=== PATIENT | female | born 1950 | race American Indian/Alaskan Native ===

== ENCOUNTER 2019-05-29 14:13 | Emergency (ER) | payer BC ==
[2019-05-29] MEDS ORDERED: Succinylcholine 200 MG/10 ML MDV IV ONE (14:14)
[2019-05-29] MEDS ORDERED: Etomidate 2 MG/ML 20 ML SDV IVPUSH ONE (14:14)
[2019-05-29] MEDS ORDERED: Rocuronium 100 MG/10 ML MDV IV ONE (14:14)
[2019-05-29] MEDS ORDERED: Insulin Regular, Human 100 Units/ML 3 ML Vial IV ONE ×2 (14:25→16:07)
[2019-05-29 14:51] VITALS: BP 121/57; PULSE 104
[2019-05-29 15:19] LABS: BASE EXCESS ARTERIAL -29 mmol/L ((-2)-(+3)); BICARBONATE,ARTERIAL 3.1 mmol/L (22-26); O2 DELIVERY DEVICE ROOM AIR; O2 SATURATION ARTERIAL 80 % (95-100); PCO2 ARTERIAL 20 mmHg (35-45); PO2 ARTERIAL 64 mmHg (70-100)
[2019-05-29 15:24] LABS: O2 FLOW RATE 5
[2019-05-29 15:25] LABS: ALLEN TEST RB
[2019-05-29] MEDS ORDERED: Sodium Bicarbonate 8.4% 50 MEQ/50 ML Syringe IVPUSH ONE (15:28)
[2019-05-29] MEDS ORDERED: Furosemide 40 MG/4 ML VIAL IVPUSH ONE (15:28)
[2019-05-29] MEDS ORDERED: Magnesium Sulfate/Water 2 GM in Premix Bag 1 BAG IV ONE (15:47)
[2019-05-29 15:53] LABS: CHLORIDE,CL 103 mmol/L (101-111); SODIUM,NA 134 mmol/L (135-145)
[2019-05-29 15:54] LABS: ANION GAP 31.40001
--- NOTE | 2019-05-29 15:57 | EDM.PDOC ---
ED HPI GENERAL MEDICAL PROBLEM - General Chief Complaint: Respiratory Problem Stated Complaint: UNKNOWN Time Seen by Provider: 05/29/19 14:15 Source of Information: Reports: Patient, Family History Limitations: Reports: No Limitations - History of Present Illness INITIAL COMMENTS - FREE TEXT/NARRATIVE: ED via [facility] with c/o difficulty breathing since am Discharged from [facility] yesterday, daughter wondering if not getting water pill as noted a lot of puffiness today. Incontinent urine enroute. Lung sounds improved with neb per EMS. - Related Data Allergies Allergy/AdvReac Type Severity Reaction Status Date / Time No Known Allergies Allergy Verified 05/25/15 09:21 Home Meds: Home Meds Aspirin [Colonia Aspirin] 2 oz PO DAILY 05/25/15 [History] Furosemide 1 tab PO DAILY 05/25/15 [History] Insulin Aspart [Novolog Flexpen] 15 units SQ TID 05/25/15 [History] Insulin Detemir [Levemir Flextouch] 40 units SQ BID 05/25/15 [History] Lisinopril 1 tab PO DAILY 05/25/15 [History] Metoprolol Succinate [Toprol XL] 1 tab PO DAILY 05/25/15 [History] Zolpidem [Ambien] 1 tab PO DAILY PRN 05/25/15 [History] traMADol HCl [Tramadol HCl] 2 tab PO Q6H PRN 05/25/15 [History] Past Medical History Cardiovascular History: Reports: Heart Failure, Hypertension, MD Neurological History: Reports: Migraines Endocrine/Metabolic History: Reports: Diabetes, Type II - Infectious Disease History Infectious Disease History: Reports: Hepatitis B, MRSA, Shingles - Past Surgical History Cardiovascular Surgical History: Reports: Coronary Artery Bypass GI Surgical History: Reports: Cholecystectomy, Hernia, Inguinal Social & Family History - Family History Family Medical History: Noncontributory ED ROS GENERAL - Review of Systems Review Of Systems: Comprehensive ROS is negative, except as noted in HPI. ED EXAM, GENERAL - Physical Exam Exam: See Below Exam Limited By: No Limitations General Appearance: Lethargic, Other (drowsy and ketone odor) Eye Exam: Bilateral Eye: EOMI, Normal Inspection, PERRL Ears: Normal External Exam, Normal Canal, Hearing Grossly Normal, Normal TMs Nose: Normal Inspection, Normal Mucosa, No Blood Throat/Mouth: Normal Inspection, Normal Lips, Normal Teeth, Normal Gums, Normal Oropharynx, Normal Voice, No Airway Compromise Head: Atraumatic, Normocephalic Neck: Normal Inspection, Supple, Non-Tender, Full Range of Motion Respiratory/Chest: Decreased Breath Sounds, Other (course on right side) Cardiovascular: Regular Rate, Rhythm GI/Abdominal: Normal Bowel Sounds, Soft (Female) Exam: Deferred Rectal (Female) Exam: Deferred Back Exam: Normal Inspection Extremities: Normal Inspection Neurological: Other (drowsy) Psychiatric: Normal Affect Skin Exam: Other (pale) Lymphatic: No Adenopathy Course - Vital Signs Last Recorded V/S: Last Vital Signs Temp 97.3 F 05/29/19 14:13 Pulse 104 H 05/29/19 14:13 Resp 24 H 05/29/19 14:13 BP 121/57 L 05/29/19 14:13 Pulse Ox 100 05/29/19 14:13 - Orders/Labs/Meds Orders: Active Orders 24 hr Category Date Time Status EKG 12 Lead [EKG Documentation Completion] [RC] STAT Care 05/29/19 14:15 Active Glucose [Blood Glucose Check, Bedside] [RC] ONETIME Care 05/29/19 14:17 Active CXR [Chest 1V Frontal] [CR] Urgent Exams 05/29/19 15:54 Taken CBC WITH AUTO DIFF [HEME] Stat Lab 05/29/19 15:07 Results CKMB [CHEM] Stat Lab 05/29/19 15:07 Received CULTURE BLOOD [BC] Stat Lab 05/29/19 14:26 Ordered CULTURE BLOOD [BC] Stat Lab 05/29/19 15:07 Received INFLUENZA A+B AG SCREEN [RM] Stat Lab 05/29/19 14:16 Ordered MANUAL DIFFERENTIAL QA/NC [HEME] Stat Lab 05/29/19 15:07 Results UA RFX MIKEY AND CULT IF INDIC [URIN] Stat Lab 05/29/19 14:15 Ordered Insulin Regular, Human [HumuLIN R] 100 unit Med 05/29/19 14:30 Active Sodium Chloride 0.9% [Normal Saline] 99 ml IV TITRATE Magnesium Sulfate/Water [Magnesium Sulfate in Water Med 05/29/19 15:47 Active Premix] 2 gm Premix Bag 1 bag IV ONETIME Blood Culture x2 Reflex Set [OM.PC] Stat Oth 05/29/19 14:25 Ordered Medication Orders Insulin Human Regular 100 unit (/ Sodium Chloride) 100 mls @ 8.83 mls/hr IV TITRATE ERIN; Protocol Last Admin: 05/29/19 15:24 Dose: 0.1 units/kg/hr, 8.83 mls/hr Magnesium Sulfate 2 gm/ Premix 50 mls @ 25 mls/hr IV ONETIME ONE Stop: 05/29/19 17:46 Labs: Laboratory Tests 05/29/19 05/29/19 05/29/19 Range/Units 15:07 15:07 15:07 WBC 15.6 H (5.0-10.0) 10^3/uL RBC 3.33 L (4.2-5.4) 10^6/uL Hgb 9.5 L D (12.0-16.0) g/dL Hct 32.9 L (37.0-47.0) % MCV 98.8 D (80-100) fL MCH 28.5 (27.0-34.0) pg MCHC 28.9 L (33.0-35.0) g/dL Plt Count 387 D (150-450) 10^3/uL Neut % (Auto) 80.7 H (42.2-75.2) % Lymph % (Auto) 8.2 L (20.5-50.1) % [place] % (Auto) 11.0 H (2-8) % Eos % (Auto) 0.0 L (1.0-3.0) % Baso % (Auto) 0.1 (0.0-1.0) % Add Manual Diff Yes PT 8.9 L (9.0-12.0) SEC INR 0.9 (0.9-1.2) ABG pH (7.35-7.45) ABG pCO2 (35-45) mmHg ABG pO2 (70-100) mmHg ABG HCO3 (22-26) mmol/L ABG O2 Saturation (95-100) % ABG Base Excess ((-2)-(+3)) mmol/L Vignesh Test O2 Delivery Device Oxygen Flow Rate Sodium 134 L (135-145) mmol/L Potassium 5.4 H (3.6-5.0) mmol/L Chloride 103 (101-111) mmol/L Carbon Dioxide < 5.0 L* D (21.0-31.0) mmol/L Anion Gap 31.11553 BUN 19 H (7-18) mg/dL Creatinine 1.5 H (0.6-1.3) mg/dL Est Cr Clr Drug Dosing 34.91 mL/min Estimated GFR (MDRD) 35 BUN/Creatinine Ratio 12.66 Glucose 712 H* (74-105) mg/dL Lactic Acid (0.5-2.0) mmol/L Calcium 8.6 (8.4-10.2) mg/dl Magnesium (1.8-2.5) mg/dL Total Bilirubin 2.1 H (0.2-1.0) mg/dL AST 20 (10-42) IU/L ALT 15 (10-60) IU/L Alkaline Phosphatase 91 (42-121) IU/L Troponin I 0.07 (0.00-0.08) ng/mL B-Natriuretic Peptide 1680 H (0-100) pg/ml Total Protein 6.5 L (6.7-8.2) g/dl Albumin 3.1 L (3.2-5.5) g/dl Globulin 3.4 Albumin/Globulin Ratio 0.91 Ketones 05/29/19 05/29/19 05/29/19 Range/Units 15:07 15:07 15:20 WBC (5.0-10.0) 10^3/uL RBC (4.2-5.4) 10^6/uL Hgb (12.0-16.0) g/dL Hct (37.0-47.0) % MCV (80-100) fL MCH (27.0-34.0) pg MCHC (33.0-35.0) g/dL Plt Count (150-450) 10^3/uL Neut % (Auto) (42.2-75.2) % Lymph % (Auto) (20.5-50.1) % [place] % (Auto) (2-8) % Eos % (Auto) (1.0-3.0) % Baso % (Auto) (0.0-1.0) % Add Manual Diff PT (9.0-12.0) SEC INR (0.9-1.2) ABG pH 6.83 L* (7.35-7.45) ABG pCO2 20 L (35-45) mmHg ABG pO2 64 L (70-100) mmHg ABG HCO3 3.1 L (22-26) mmol/L ABG O2 Saturation 80 L (95-100) % ABG Base Excess -29 L ((-2)-(+3)) mmol/L Vignesh Test Rb O2 Delivery Device Room air Oxygen Flow Rate 5 Sodium (135-145) mmol/L Potassium (3.6-5.0) mmol/L Chloride (101-111) mmol/L Carbon Dioxide (21.0-31.0) mmol/L Anion Gap BUN (7-18) mg/dL Creatinine (0.6-1.3) mg/dL Est Cr Clr Drug Dosing mL/min Estimated GFR (MDRD) BUN/Creatinine Ratio Glucose (74-105) mg/dL Lactic Acid 2.0 (0.5-2.0) mmol/L Calcium (8.4-10.2) mg/dl Magnesium 2.6 H (1.8-2.5) mg/dL Total Bilirubin (0.2-1.0) mg/dL AST (10-42) IU/L ALT (10-60) IU/L Alkaline Phosphatase (42-121) IU/L Troponin I (0.00-0.08) ng/mL B-Natriuretic Peptide (0-100) pg/ml Total Protein (6.7-8.2) g/dl Albumin (3.2-5.5) g/dl Globulin Albumin/Globulin Ratio Ketones Positive Meds: Medications Generic Name Dose Route Start Last Admin Trade Name Samq PRN Reason Stop Dose Admin Insulin Human Regular 100 unit 100 mls @ 8.83 mls/hr 05/29/19 14:30 05/29/19 15:24 / Sodium Chloride IV 0.1 units/kg/hr TITRATE ERIN 8.83 mls/hr Administration Protocol 0.1 UNITS/KG/HR Magnesium Sulfate 2 gm/ Premix 50 mls @ 25 mls/hr 05/29/19 15:47 IV 05/29/19 17:46 ONETIME ONE Discontinued Medications Generic Name Dose Route Start Last Admin Trade Name Samq PRN Reason Stop Dose Admin Furosemide 40 mg 05/29/19 15:28 05/29/19 15:55 Lasix IVPUSH 05/29/19 15:29 40 mg NOW ONE Administration Magnesium Sulfate/Dextrose Confirm 05/29/19 16:18 Magnesium Sulfate In D5w 100 Premix Administered 05/29/19 16:19 Dose 2 gm in 200 mls @ as directed .ROUTE .STK-MED ONE Insulin Human Regular 10 unit 05/29/19 14:25 05/29/19 15:23 Humulin R IV 05/29/19 14:26 10 units ONETIME ONE Administration Sodium Bicarbonate 50 meq 05/29/19 15:28 05/29/19 15:39 Sodium Bicarbonate 8.4% IVPUSH 05/29/19 15:29 50 meq ONETIME ONE Administration - Re-Assessments/Exams Free Text/Narrative Re-Assessment/Exam: 05/29/19 16:36 increased effort, tiring. VSS stable, no ectopy. Anesthesia here, Patient intubated. Dr Chanelle Fragoso accepting patient, CHF, DKA. [facility] roto team here. Patient to be transported via [facility] due to weather. Family aware patient status, Patient is full code. Departure - Departure Time of Disposition: 16:39 Disposition: Home, Self-Care 01 Condition: Undetermined Clinical Impression: Hypoxemia, Metabolic acidosis due to diabetes mellitus, Hypomagnesemia, Hyperkalemia Congestive heart failure Qualifiers: Heart failure type: unspecified Heart failure chronicity: acute on chronic Qualified Code(s): I50.9 - Heart failure, unspecified DKA (diabetic ketoacidosis) Qualifiers: Diabetes mellitus type: type 2 Diabetes mellitus complication detail: without coma Qualified Code(s): E11.10 - Type 2 diabetes mellitus with ketoacidosis without coma - Discharge Information Forms: ED Department Discharge Sepsis Event Note - Evaluation Sepsis Screening Result: Possible Sepsis Risk - Focused Exam Vital Signs: Vital Signs Temp Pulse Resp BP Pulse Ox 05/29/19 14:13 97.3 F 104 H 24 H 121/57 L 100 Date Exam was Performed: 05/29/19 Time Exam was Performed: 16:36 - My Orders Last 24 Hours: My Active Orders 05/29/19 14:15 EKG 12 Lead [EKG Documentation Completion] [RC] STAT UA RFX MIKEY AND CULT IF INDIC [URIN] Stat 05/29/19 14:16 INFLUENZA A+B AG SCREEN [RM] Stat 05/29/19 14:17 Glucose [Blood Glucose Check, Bedside] [RC] ONETIME 05/29/19 14:25 Blood Culture x2 Reflex Set [OM.PC] Stat 05/29/19 14:26 CULTURE BLOOD [BC] Stat 05/29/19 14:30 Insulin Regular, Human [HumuLIN R] 100 unit Sodium Chloride 0.9% [Normal Saline] 99 ml IV TITRATE 05/29/19 15:07 CBC WITH AUTO DIFF [HEME] Stat CKMB [CHEM] Stat CULTURE BLOOD [BC] Stat MANUAL DIFFERENTIAL QA/NC [HEME] Stat 05/29/19 15:47 Magnesium Sulfate/Water [Magnesium Sulfate in Water Premix] 2 gm Premix Bag 1 bag IV ONETIME 05/29/19 15:54 CXR [Chest 1V Frontal] [CR] Urgent - Assessment/Plan Last 24 Hours: My Active Orders 05/29/19 14:15 EKG 12 Lead [EKG Documentation Completion] [RC] STAT UA RFX MIKEY AND CULT IF INDIC [URIN] Stat 05/29/19 14:16 INFLUENZA A+B AG SCREEN [RM] Stat 05/29/19 14:17 Glucose [Blood Glucose Check, Bedside] [RC] ONETIME 05/29/19 14:25 Blood Culture x2 Reflex Set [OM.PC] Stat 05/29/19 14:26 CULTURE BLOOD [BC] Stat 05/29/19 14:30 Insulin Regular, Human [HumuLIN R] 100 unit Sodium Chloride 0.9% [Normal Saline] 99 ml IV TITRATE 05/29/19 15:07 CBC WITH AUTO DIFF [HEME] Stat CKMB [CHEM] Stat CULTURE BLOOD [BC] Stat MANUAL DIFFERENTIAL QA/NC [HEME] Stat 05/29/19 15:47 Magnesium Sulfate/Water [Magnesium Sulfate in Water Premix] 2 gm Premix Bag 1 bag IV ONETIME 05/29/19 15:54 CXR [Chest 1V Frontal] [CR] Urgent
[2019-05-29] MEDS ORDERED: Magnesium Sulfate/D5W 2 GM/200 ML BAG ONE (16:18)
== END 2019-05-29 17:08 | disposition home or self-care (01) ==
LOC: DL.ED 14:13
DX: E11.10 Type 2 diabetes mellitus with ketoacidosis without coma (principal); R09.02 Hypoxemia; E83.42 Hypomagnesemia; E87.5 Hyperkalemia; E87.2 Acidosis; I11.0 Hypertensive heart disease with heart failure; I50.9 Heart failure, unspecified; I25.2 Old myocardial infarction; Z79.82 Long term (current) use of aspirin; Z79.4 Long term (current) use of insulin; Z79.899 Other long term (current) drug therapy; Z95.1 Presence of aortocoronary bypass graft
CPT/HCPCS: 31500; 36415; 36600; 51702; 71045; 80053; 82009; 82553; 82803; 82962; 83605; 83735; 83880; 84484; 85025; 85610; 87040; 87804; 93005; 96365; 96375; 99285; J0330; J1815; J1940; J3475; J3490

== ENCOUNTER 2020-09-29 09:47 | Emergency (ER) | payer MEDICARE, BC ==
--- NOTE | 2020-09-29 09:58 | EDM.PDOC ---
ED HPI GENERAL MEDICAL PROBLEM - General Chief Complaint: Diabetic Complaint Stated Complaint: IN BY AMBULANCE Time Seen by Provider: 09/29/20 09:58 Source of Information: Reports: EMS, Old Records, RN, RN Notes Reviewed History Limitations: Reports: Altered Mental Status - History of Present Illness INITIAL COMMENTS - FREE TEXT/NARRATIVE: Pt arrives from home unresponsive to verbal stimuli with report that she was last seen by family about 3 days ago, and today found unresponsive, covering in feces with a blood sugar reading of "high". Records review reveals Hx of uncontrolled DM Type 2 with DKA. Pt is unable to provide any history. No family present. Onset: Unknown/Unsure Location: Reports: Generalized Severity: Severe - Related Data Allergies Allergy/AdvReac Type Severity Reaction Status Date / Time atorvastatin Allergy Rash Verified 09/12/20 22:13 Penicillins Allergy Rash Verified 09/12/20 22:13 simvastatin Allergy Rash Verified 09/12/20 22:13 Home Meds: Home Meds Furosemide 10 mg PO DAILY 05/25/15 [History] Lisinopril 5 mg PO DAILY 05/25/15 [History] Clopidogrel Bisulfate [Plavix] 75 mg PO DAILY 09/12/20 [History] Insulin Aspart [NovoLOG] 6 units PO TIDMEALS 09/13/20 [History] Insulin Detemir [Levemir Flextouch] 30 units SUBCUT BID 09/13/20 [History] Metoprolol Tartrate 25 mg PO BID 09/13/20 [History] Non-Formulary Medication [NF Drug] 1.5 mg SUBCUT .WEEKLY 09/13/20 [History] Omeprazole 20 mg PO ACBREAKFAST 09/13/20 [History] Past Medical History Cardiovascular History: Reports: Heart Failure, Hypertension, [place] Respiratory History: Reports: COPD Gastrointestinal History: Reports: Cholelithiasis Genitourinary History: Reports: Urinary Incontinence SUBWAY GUARD History: Reports: Neurological History: Reports: CVA, Migraines Endocrine/Metabolic History: Reports: Diabetes, Type II, Other (See Below) (DKA) - Infectious Disease History Infectious Disease History: Reports: Hepatitis B, MRSA, Shingles - Past Surgical History HEENT Surgical History: Reports: None Cardiovascular Surgical History: Reports: Coronary Artery Bypass GI Surgical History: Reports: Appendectomy, Cholecystectomy, Hernia, Inguinal Female Surgical History: Reports: Section, Hysterectomy Endocrine Surgical History: Reports: None Neurological Surgical History: Reports: None Social & Family History - Family History Family Medical History: No Pertinent Family History - Caffeine Use Caffeine Use: Reports: Coffee - Living Situation & Occupation Living situation: Reports: Alone Occupation: Retired ED ROS GENERAL - Review of Systems Review Of Systems: Unable To Obtain Reason Not Obtained: Unresponsive pt ED EXAM GENERAL NO PERIP PULSE - Physical Exam Exam: See Below Exam Limited By: Other (Unresponsive) General Appearance: No Apparent Distress, Obtunded, Other (Unkept, covered in feces from head to toe) Eye Exam: Bilateral Eye: PERRL Nose: No Blood Throat/Mouth: Normal Lips, No Airway Compromise, Other (Very dry oral mucosa) Head: Atraumatic, Normocephalic Neck: Normal Inspection Respiratory/Chest: No Respiratory Distress, Lungs Clear, No Accessory Muscle Use. No: Crackles, Rales, Rhonchi, Wheezing Cardiovascular: Regular Rate, Rhythm, No Edema GI/Abdominal: Soft, Non-Tender, Other (Hypoactive bowel sounds) Extremities: Normal Inspection, No Pedal Edema Neurological: Other (Unresponsive to verbal stimuli, does not follow commands, withdraws from pain, moans, says no, looks around, follows with eyes.) Skin Exam: Warm, Dry, Intact #1 Interpretation EKG Date: 09/29/20 Time: 10:49 Rhythm: Other (SR) Fithian: Normal P-Wave: Present QRS: Wide (nonspecific IVCD) ST-T: Normal QT: Normal Comparison: NA - No Prior EKG Course - Vital Signs Last Recorded V/S: Last Vital Signs Temp 96.4 F L 09/29/20 10:16 Pulse 89 09/29/20 10:16 Resp 31 H 09/29/20 10:16 BP 104/38 L 09/29/20 10:16 Pulse Ox 100 09/29/20 10:16 - Orders/Labs/Meds Orders: Active Orders 24 hr Category Date Time Status Blood Glucose Check, Bedside [RC] ONETIME Care 09/29/20 10:01 Active EKG 12 Lead [EKG Documentation Completion] [RC] STAT Care 09/29/20 10:01 Active Insert Rogers Catheter [Insert Urinary Catheter] [OM.PC] Care 09/29/20 10:15 Ordered Q24H Peripheral IV Care [RC] . DIRECTED Care 09/29/20 10:02 Active Peripheral IV Care [RC] . DIRECTED Care 09/29/20 10:03 Active Urinary Catheter Assessment [RC] ASDIRECTED Care 09/29/20 10:02 Active COVID-19/FLU A+B [MOLEC] Stat Lab 09/29/20 11:15 Received CULTURE BLOOD [BC] Stat Lab 09/29/20 10:20 Results CULTURE BLOOD [BC] Stat Lab 09/29/20 10:43 Received DRUG SCREEN URINE BIORAD [URCHEM] Stat Lab 09/29/20 10:01 Ordered UA RFX MIKEY AND CULT IF INDIC [URIN] Stat Lab 09/29/20 10:01 Ordered Insulin Regular in 0.9 % NACL [Myxredlin in NS 100 UNIT Med 09/29/20 10:58 Active /100 ML] 100 unit in 100 ml IV TITRATE Norepinephrine [Levophed] 4 mg Med 09/29/20 11:45 Active Dextrose 5% in Water 246 ml IV TITRATE Norepinephrine [Levophed] 4 mg Med 09/29/20 12:00 Ordered Dextrose 5% in Water 246 ml IV TITRATE Sodium Chloride 0.9% [Normal Saline] 1,000 ml Med 09/29/20 11:38 Active IV .BOLUS Sodium Chloride 0.9% [Normal Saline] 1,000 ml Med 09/29/20 11:51 Ordered IV .BOLUS Sodium Chloride 0.9% [Saline Flush] Med 09/29/20 10:02 Active 10 ml FLUSH ASDIRECTED PRN Sodium Chloride 0.9% [Saline Flush] Med 09/29/20 10:03 Active 10 ml FLUSH ASDIRECTED PRN Vancomycin 1 gm Med 09/29/20 10:59 Active Sodium Chloride 0.9% [Normal Saline (AdvBag)] 250 ml IV ONETIME Blood Culture x2 Reflex Set [OM.PC] Stat Oth 09/29/20 10:00 Ordered Peripheral IV Insertion Adult [OM.PC] Stat Oth 09/29/20 10:01 Ordered Peripheral IV Insertion Adult [OM.PC] Stat Oth 09/29/20 10:03 Ordered Medication Orders Insulin Regular in 0.9 % NACL (Myxredlin In Ns 100 Unit/100 Ml) 100 unit in 100 mls @ 6.8 mls/hr IV TITRATE ERIN; Protocol Last Admin: 09/29/20 11:08 Dose: 0.1 units/kg/hr, 6.8 mls/hr Documented by: FLAQUITA Cosigned by: [id number] Vancomycin HCl 1 gm/ Sodium (Chloride) 250 mls @ 167 mls/hr IV ONETIME ONE Stop: 09/29/20 12:28 Sodium Chloride (Normal Saline) 1,000 mls @ 999 mls/hr IV .BOLUS ONE Stop: 09/29/20 12:38 Norepinephrine Bitartrate 4 mg (/ Dextrose/Water) 250 mls @ 22.5 mls/hr IV TITRATE ERIN; Protocol Norepinephrine Bitartrate 4 mg (/ Dextrose/Water) 250 mls @ 22.5 mls/hr IV TITRATE ERIN; Protocol Sodium Chloride (Normal Saline) 1,000 mls @ 999 mls/hr IV .BOLUS ONE Stop: 09/29/20 12:51 Sodium Chloride (Sodium Chloride 0.9% 10 Ml Syringe) 10 ml FLUSH ASDIRECTED PRN PRN Reason: Keep Vein Open Sodium Chloride (Sodium Chloride 0.9% 10 Ml Syringe) 10 ml FLUSH ASDIRECTED PRN PRN Reason: Keep Vein Open Labs: Laboratory Tests 09/29/20 09/29/20 09/29/20 Range/Units 10:20 10:20 10:20 WBC 16.9 H (5.0-10.0) 10^3/uL RBC 4.28 (4.2-5.4) 10^6/uL Hgb 11.0 L (12.0-16.0) g/dL Hct 40.7 (37.0-47.0) % MCV 95.1 D (80-100) fL MCH 25.7 L (27.0-34.0) pg MCHC 27.0 L (33.0-35.0) g/dL Plt Count 328 (150-450) 10^3/uL Neut % (Auto) 88.3 H (42.2-75.2) % Lymph % (Auto) 6.7 L (20.5-50.1) % [place] % (Auto) 4.7 (2-8) % Eos % (Auto) 0.1 L (1.0-3.0) % Baso % (Auto) 0.2 (0.0-1.0) % Add Manual Diff Yes Neutrophils % (Manual) 87 H (42-75) % Band Neutrophils % 6 % Lymphocytes % (Manual) 4 L (20-50) % Monocytes % (Manual) 3 (2-8) % Nucleated RBCs 1 /100WBC Anisocytosis 1+ slight PT (9.0-12.0) SEC INR (0.9-1.2) APTT (22.0-34.0) SEC ABG pH (7.35-7.45) ABG pCO2 (35-45) mmHg ABG pO2 (70-100) mmHg ABG HCO3 (22-26) mmol/L ABG O2 Saturation (95-100) % ABG Base Excess ((-2)-(+3)) mmol/L Vignesh Test O2 Delivery Device Sodium 128 L D (136-145) mmol/L Potassium 6.3 H D (3.5-5.1) mmol/L Chloride 93 L D (98-107) mmol/L Carbon Dioxide < 5 L* D (21-32) mmol/L Anion Gap 36.71602 H (7-13) mEq/L BUN 58 H D (7-18) mg/dL Creatinine 2.69 H D (0.55-1.02) mg/dL Est Cr Clr Drug Dosing TNP Estimated GFR (MDRD) 18 BUN/Creatinine Ratio 21.6 (No establ ref range) Glucose 1354 H* (70-99) mg/dL POC Glucose (70-99) mg/dL Lactic Acid 2.0 (0.4-2.0) mmol/L Calcium 8.0 L (8.5-10.1) mg/dL Total Bilirubin 0.5 (0.2-1.0) mg/dL AST 23 (15-37) U/L ALT 22 (14-59) U/L Alkaline Phosphatase 158 H (46-116) U/L Creatine Kinase 97 (16-191) U/L Troponin I 0.078 H* (0.000-0.056) ng/mL B-Natriuretic Peptide 2030 H (0-100) pg/ml Total Protein 6.5 (6.4-8.2) g/dL Albumin 2.9 L (3.4-5.0) g/dL Globulin 3.6 Albumin/Globulin Ratio 0.81 Amylase 81 (25-115) U/L Lipase 593 H (73-393) U/L Ethyl Alcohol < 3 (0) mg/dL Ketones 09/29/20 09/29/20 09/29/20 Range/Units 10:20 10:32 10:43 WBC (5.0-10.0) 10^3/uL RBC (4.2-5.4) 10^6/uL Hgb (12.0-16.0) g/dL Hct (37.0-47.0) % MCV (80-100) fL MCH (27.0-34.0) pg MCHC (33.0-35.0) g/dL Plt Count (150-450) 10^3/uL Neut % (Auto) (42.2-75.2) % Lymph % (Auto) (20.5-50.1) % [place] % (Auto) (2-8) % Eos % (Auto) (1.0-3.0) % Baso % (Auto) (0.0-1.0) % Add Manual Diff Neutrophils % (Manual) (42-75) % Band Neutrophils % % Lymphocytes % (Manual) (20-50) % Monocytes % (Manual) (2-8) % Nucleated RBCs /100WBC Anisocytosis PT 9.8 (9.0-12.0) SEC INR 1.0 (0.9-1.2) APTT 27.5 (22.0-34.0) SEC ABG pH (7.35-7.45) ABG pCO2 (35-45) mmHg ABG pO2 (70-100) mmHg ABG HCO3 (22-26) mmol/L ABG O2 Saturation (95-100) % ABG Base Excess ((-2)-(+3)) mmol/L Vignesh Test O2 Delivery Device Sodium (136-145) mmol/L Potassium (3.5-5.1) mmol/L Chloride (98-107) mmol/L Carbon Dioxide (21-32) mmol/L Anion Gap (7-13) mEq/L BUN (7-18) mg/dL Creatinine (0.55-1.02) mg/dL Est Cr Clr Drug Dosing Estimated GFR (MDRD) BUN/Creatinine Ratio (No establ ref range) Glucose (70-99) mg/dL POC Glucose > 600 H* (70-99) mg/dL Lactic Acid (0.4-2.0) mmol/L Calcium (8.5-10.1) mg/dL Total Bilirubin (0.2-1.0) mg/dL AST (15-37) U/L ALT (14-59) U/L Alkaline Phosphatase (46-116) U/L Creatine Kinase (16-191) U/L Troponin I (0.000-0.056) ng/mL B-Natriuretic Peptide (0-100) pg/ml Total Protein (6.4-8.2) g/dL Albumin (3.4-5.0) g/dL Globulin Albumin/Globulin Ratio Amylase (25-115) U/L Lipase (73-393) U/L Ethyl Alcohol (0) mg/dL Ketones Large-80 mg/dl 09/29/20 09/29/20 Range/Units 11:15 11:22 WBC (5.0-10.0) 10^3/uL RBC (4.2-5.4) 10^6/uL Hgb (12.0-16.0) g/dL Hct (37.0-47.0) % MCV (80-100) fL MCH (27.0-34.0) pg MCHC (33.0-35.0) g/dL Plt Count (150-450) 10^3/uL Neut % (Auto) (42.2-75.2) % Lymph % (Auto) (20.5-50.1) % [place] % (Auto) (2-8) % Eos % (Auto) (1.0-3.0) % Baso % (Auto) (0.0-1.0) % Add Manual Diff Neutrophils % (Manual) (42-75) % Band Neutrophils % % Lymphocytes % (Manual) (20-50) % Monocytes % (Manual) (2-8) % Nucleated RBCs /100WBC Anisocytosis PT (9.0-12.0) SEC INR (0.9-1.2) APTT (22.0-34.0) SEC ABG pH 7.05 L* (7.35-7.45) ABG pCO2 12 L* (35-45) mmHg ABG pO2 161 H (70-100) mmHg ABG HCO3 3.1 L (22-26) mmol/L ABG O2 Saturation 99 (95-100) % ABG Base Excess -27 L ((-2)-(+3)) mmol/L Vignesh Test Performed O2 Delivery Device Room air Sodium (136-145) mmol/L Potassium (3.5-5.1) mmol/L Chloride (98-107) mmol/L Carbon Dioxide (21-32) mmol/L Anion Gap (7-13) mEq/L BUN (7-18) mg/dL Creatinine (0.55-1.02) mg/dL Est Cr Clr Drug Dosing Estimated GFR (MDRD) BUN/Creatinine Ratio (No establ ref range) Glucose (70-99) mg/dL POC Glucose > 600 H* (70-99) mg/dL Lactic Acid (0.4-2.0) mmol/L Calcium (8.5-10.1) mg/dL Total Bilirubin (0.2-1.0) mg/dL AST (15-37) U/L ALT (14-59) U/L Alkaline Phosphatase (46-116) U/L Creatine Kinase (16-191) U/L Troponin I (0.000-0.056) ng/mL B-Natriuretic Peptide (0-100) pg/ml Total Protein (6.4-8.2) g/dL Albumin (3.4-5.0) g/dL Globulin Albumin/Globulin Ratio Amylase (25-115) U/L Lipase (73-393) U/L Ethyl Alcohol (0) mg/dL Ketones Meds: Medications Generic Name Dose Route Start Last Admin Trade Name Freq PRN Reason Stop Dose Admin Insulin Regular in 0.9 % NACL 100 unit in 100 mls @ 6.8 mls/hr 09/29/20 10:58 09/29/20 11:08 Myxredlin In Ns 100 Unit/100 Ml IV 0.1 units/kg/hr TITRATE ERIN 6.8 mls/hr Administration Protocol 0.1 UNITS/KG/HR Vancomycin HCl 1 gm/ Sodium 250 mls @ 167 mls/hr 09/29/20 10:59 Chloride IV 09/29/20 12:28 ONETIME ONE Sodium Chloride 1,000 mls @ 999 mls/hr 09/29/20 11:38 Normal Saline IV 09/29/20 12:38 .BOLUS ONE Norepinephrine Bitartrate 4 mg 250 mls @ 22.5 mls/hr 09/29/20 11:45 / Dextrose/Water IV TITRATE ERIN Protocol 6 MCG/MIN Norepinephrine Bitartrate 4 mg 250 mls @ 22.5 mls/hr 09/29/20 12:00 / Dextrose/Water IV TITRATE ERIN Protocol 6 MCG/MIN Sodium Chloride 1,000 mls @ 999 mls/hr 09/29/20 11:51 Normal Saline IV 09/29/20 12:51 .BOLUS ONE Sodium Chloride 10 ml 09/29/20 10:02 Sodium Chloride 0.9% 10 Ml Syringe FLUSH ASDIRECTED PRN Keep Vein Open Sodium Chloride 10 ml 09/29/20 10:03 Sodium Chloride 0.9% 10 Ml Syringe FLUSH ASDIRECTED PRN Keep Vein Open Discontinued Medications Generic Name Dose Route Start Last Admin Trade Name Freq PRN Reason Stop Dose Admin Sodium Chloride 1,000 mls @ 999 mls/hr 09/29/20 10:03 09/29/20 10:45 Normal Saline IV 09/29/20 11:03 999 mls/hr .BOLUS ONE Administration Insulin Human Regular 10 unit 09/29/20 10:47 09/29/20 11:00 Insulin Regular, Human 100 Units/Ml 3 Ml Vial IV 09/29/20 10:48 10 units ONETIME ONE Administration Norepinephrine Bitartrate Confirm 09/29/20 11:40 Norepinephrine 4 Mg/4 Ml Sdv Administered 09/29/20 11:41 Dose 4 mg .ROUTE .STK-MED ONE Sodium Bicarbonate 50 meq 09/29/20 10:58 09/29/20 11:12 Sodium Bicarbonate 8.4% 50 Meq/50 Ml Syringe IVPUSH 09/29/20 10:59 50 meq ONETIME ONE Administration - Radiology Interpretation Free Text/Narrative:: [facility] [place] [facility] Final Radiology Report Call: [phone] assistance Online chat: [email or web address] Name: RONA MAYS Age: 70Years F Date: 09/29/2020 SSN: -- : [id number] Study: CR CHEST 1V FRONTAL Requesting Physician: PRATIMA BENAVIDES Images: 1 Addl Studies: Provided Clinical History: possible aspiration Contrast: Contrast Medium: Contrast Amount: Contrast Method: CONFIDENTIALITY STATEMENT This report is intended only for use by the referring physician, and only in accordance with law. If you received this in error, call [phone]. Page 1 of 1 PROCEDURE INFORMATION: Exam: XR Chest Exam date and time: 09/29/2020 10:25 AM Age: 70 years old Clinical indication: Other: ? Aspiration; Prior surgery; Surgery date: 6+ months; Surgery type: Heart; Additional info: Possible aspiration TECHNIQUE: Imaging protocol: XR of the chest. Views: 1 view. COMPARISON: CR Chest 1V Frontal 05/29/2019 4:20 PM FINDINGS: Lungs: Unremarkable. No consolidation. Pleural spaces: Unremarkable. No pleural effusion. No pneumothorax. Heart/Mediastinum: Unremarkable. No cardiomegaly. Vasculature: Aortic calcifications. Bones/joints: Sternotomy. IMPRESSION: No acute findings Thank you for allowing us to participate in the care of your patient. Dictated and Authenticated by: Fabiana Chu MD 09/29/2020 10:48 AM Central Time ([place] & [place]) - Re-Assessments/Exams Free Text/Narrative Re-Assessment/Exam: 09/29/20 11:35 While on phone to arrange transfer to [facility] the nurse caring for the pt informed me that the pt's BP had dropped from systolic 104mmHg to 74/38. Repeat BP confirmed systolic in 70s, therefore Levophed IV gtt initiated. Departure - Departure Time of Disposition: 11:52 Disposition: DC/Tfer to Acute Hospital 02 Condition: Critical Clinical Impression: DKA, type 2 Qualifiers: Diabetes mellitus complication detail: without coma Qualified Code(s): E11.10 - Type 2 diabetes mellitus with ketoacidosis without coma Sepsis Qualifiers: Sepsis type: sepsis due to unspecified organism Sepsis acute organ dysfunction status: with acute organ dysfunction Severe sepsis acute organ dysfunction type: unspecified Severe sepsis shock status: with septic shock Qualified Code(s): A41.9 - Sepsis, unspecified organism; R65.21 - Severe sepsis with septic shock - Discharge Information Forms: ED Department Discharge, Interfacility Transfer [facility] Sepsis Event Note (ED) - Focused Exam Vital Signs: Vital Signs Temp Pulse Resp BP Pulse Ox 09/29/20 10:16 96.4 F L 89 31 H 104/38 L 100 - My Orders Last 24 Hours: My Active Orders 09/29/20 10:00 Blood Culture x2 Reflex Set [OM.PC] Stat 09/29/20 10:01 Blood Glucose Check, Bedside [RC] ONETIME EKG 12 Lead [EKG Documentation Completion] [RC] STAT DRUG SCREEN URINE BIORAD [URCHEM] Stat UA RFX MIKEY AND CULT IF INDIC [URIN] Stat Peripheral IV Insertion Adult [OM.PC] Stat 09/29/20 10:02 Peripheral IV Care [RC] . DIRECTED Urinary Catheter Assessment [RC] ASDIRECTED Sodium Chloride 0.9% [Saline Flush] 10 ml FLUSH ASDIRECTED PRN 09/29/20 10:03 Peripheral IV Care [RC] . DIRECTED Sodium Chloride 0.9% [Saline Flush] 10 ml FLUSH ASDIRECTED PRN Peripheral IV Insertion Adult [OM.PC] Stat 09/29/20 10:15 Insert Rogers Catheter [Insert Urinary Catheter] [OM.PC] Q24H 09/29/20 10:20 CULTURE BLOOD [BC] Stat 09/29/20 10:43 CULTURE BLOOD [BC] Stat 09/29/20 10:58 Insulin Regular in 0.9 % NACL [Myxredlin in NS 100 UNIT/100 ML] 100 unit in 100 ml IV TITRATE 09/29/20 10:59 Vancomycin 1 gm Sodium Chloride 0.9% [Normal Saline (AdvBag)] 250 ml IV ONETIME 09/29/20 11:15 COVID-19/FLU A+B [MOLEC] Stat 09/29/20 11:38 Sodium Chloride 0.9% [Normal Saline] 1,000 ml IV .BOLUS 09/29/20 11:45 Norepinephrine [Levophed] 4 mg Dextrose 5% in Water 246 ml IV TITRATE 09/29/20 11:51 Sodium Chloride 0.9% [Normal Saline] 1,000 ml IV .BOLUS 09/29/20 12:00 Norepinephrine [Levophed] 4 mg Dextrose 5% in Water 246 ml IV TITRATE - Assessment/Plan Last 24 Hours: My Active Orders 09/29/20 10:00 Blood Culture x2 Reflex Set [OM.PC] Stat 09/29/20 10:01 Blood Glucose Check, Bedside [RC] ONETIME EKG 12 Lead [EKG Documentation Completion] [RC] STAT DRUG SCREEN URINE BIORAD [URCHEM] Stat UA RFX MIKEY AND CULT IF INDIC [URIN] Stat Peripheral IV Insertion Adult [OM.PC] Stat 09/29/20 10:02 Peripheral IV Care [RC] . DIRECTED Urinary Catheter Assessment [RC] ASDIRECTED Sodium Chloride 0.9% [Saline Flush] 10 ml FLUSH ASDIRECTED PRN 09/29/20 10:03 Peripheral IV Care [RC] . DIRECTED Sodium Chloride 0.9% [Saline Flush] 10 ml FLUSH ASDIRECTED PRN Peripheral IV Insertion Adult [OM.PC] Stat 09/29/20 10:15 Insert Rogers Catheter [Insert Urinary Catheter] [OM.PC] Q24H 09/29/20 10:20 CULTURE BLOOD [BC] Stat 09/29/20 10:43 CULTURE BLOOD [BC] Stat 09/29/20 10:58 Insulin Regular in 0.9 % NACL [Myxredlin in NS 100 UNIT/100 ML] 100 unit in 100 ml IV TITRATE 09/29/20 10:59 Vancomycin 1 gm Sodium Chloride 0.9% [Normal Saline (AdvBag)] 250 ml IV ONETIME 09/29/20 11:15 COVID-19/FLU A+B [MOLEC] Stat 09/29/20 11:38 Sodium Chloride 0.9% [Normal Saline] 1,000 ml IV .BOLUS 09/29/20 11:45 Norepinephrine [Levophed] 4 mg Dextrose 5% in Water 246 ml IV TITRATE 09/29/20 11:51 Sodium Chloride 0.9% [Normal Saline] 1,000 ml IV .BOLUS 09/29/20 12:00 Norepinephrine [Levophed] 4 mg Dextrose 5% in Water 246 ml IV TITRATE
[2020-09-29] MEDS ORDERED: Sodium Chloride 0.9% 10 ML Syringe FLUSH PRN ×2 (10:02→10:03)
[2020-09-29] MEDS ORDERED: Sodium Chloride 0.9% 1,000 ML IV ONE ×3 (10:03→11:51)
[2020-09-29 10:22] VITALS: BP 104/38; PULSE 89
[2020-09-29] MEDS ORDERED: Insulin Regular, Human 100 Units/ML 3 ML Vial IV ONE (10:47)
--- NOTE | 2020-09-29 10:48 | CR ---
PROCEDURE INFORMATION: Exam: XR Chest Exam date and time: 09/29/2020 10:25 AM Age: 70 years old Clinical indication: Other: ? Aspiration; Prior surgery; Surgery date: 6+ months; Surgery type: Heart; Additional info: Possible aspiration TECHNIQUE: Imaging protocol: XR of the chest. Views: 1 view. COMPARISON: CR Chest 1V Frontal 05/29/2019 4:20 PM FINDINGS: Lungs: Unremarkable. No consolidation. Pleural spaces: Unremarkable. No pleural effusion. No pneumothorax. Heart/Mediastinum: Unremarkable. No cardiomegaly. Vasculature: Aortic calcifications. Bones/joints: Sternotomy. IMPRESSION: No acute findings
[2020-09-29 10:49] LABS: CHLORIDE,CL 93 mmol/L (98-107); SODIUM,NA 128 mmol/L (136-145)
[2020-09-29 10:53] LABS: ANION GAP 36.30001 mEq/L (7-13)
[2020-09-29] MEDS ORDERED: Sodium Bicarbonate 8.4% 50 MEQ/50 ML Syringe IVPUSH ONE (10:58)
[2020-09-29 11:07] LABS: PTT,PARTIAL THROMBOPLSTIN TIME 27.5 SEC (22.0-34.0)
[2020-09-29 11:21] LABS: BASE EXCESS ARTERIAL -27 mmol/L ((-2)-(+3)); BICARBONATE,ARTERIAL 3.1 mmol/L (22-26); O2 DELIVERY DEVICE ROOM AIR; O2 SATURATION ARTERIAL 99 % (95-100); PO2 ARTERIAL 161 mmHg (70-100)
[2020-09-29 11:22] LABS: ALLEN TEST PERFORMED; PCO2 ARTERIAL 12 mmHg (35-45)
[2020-09-29] MEDS ORDERED: Norepinephrine 4 MG/4 ML SDV ONE (11:40)
[2020-09-29] MEDS ORDERED: Norepinephrine 4 MG in Dextrose 5% in Water 246 ML IV SCH ×4 (11:45→12:00)
[2020-09-29 12:06] LABS: CORONAVIRUS COVID-19 NAA NEGATIVE (NEGATIVE)
== END 2020-09-29 12:45 ==
LOC: DL.ED 09:47
DX: E11.10 Type 2 diabetes mellitus with ketoacidosis without coma (principal); I11.0 Hypertensive heart disease with heart failure; I50.9 Heart failure, unspecified; I25.2 Old myocardial infarction; Z79.4 Long term (current) use of insulin; Z79.02 Long term (current) use of antithrombotics/antiplatelets; Z79.899 Other long term (current) drug therapy; Z20.822 Contact with and (suspected) exposure to COVID-19
CPT/HCPCS: 0240U; 36415; 36600; 71045; 80053; 80307; 82009; 82150; 82550; 82803; 82947; 83605; 83690; 83880; 84484; 85025; 85610; 85730; 87040; 96374; 99284; 99285-25; J1815-GY; J3370; J7030; J7050; J7060

== ENCOUNTER 2020-10-09 18:34 | Inpatient (IN) | payer MEDICARE, BC ==
[2020-10-09 19:50] LABS: ANION GAP 29.2 mEq/L (7-13); CHLORIDE,CL 103 mmol/L (98-107); SODIUM,NA 138 mmol/L (136-145)
[2020-10-09 20:03] LABS: ACETAMINOPHEN 0 ug/mL (10-30 (Therapeutic))
[2020-10-09 20:09] LABS: BASE EXCESS ARTERIAL -14 mmol/L ((-2)-(+3)); O2 DELIVERY DEVICE ROOM AIR; O2 SATURATION ARTERIAL 97 % (95-100); PCO2 ARTERIAL 24 mmHg (35-45); PO2 ARTERIAL 83 mmHg (70-100)
[2020-10-09 20:16] LABS: ALLEN TEST pos
[2020-10-09] MEDS ORDERED: Glucagon,Human Recombinant 1 MG Vial IM PRN (20:18)
[2020-10-09] MEDS ORDERED: Sodium Chloride 0.9% 1,000 ML IV ONE (20:18)
[2020-10-09] MEDS ORDERED: Insulin Regular, Human 100 Units/ML 3 ML Vial IV ONE (20:18)
--- NOTE | 2020-10-09 20:29 | EDM.PDOC ---
ED HPI GENERAL MEDICAL PROBLEM - General Chief Complaint: Diabetic Complaint Stated Complaint: BLOOD SUGAR Time Seen by Provider: 10/09/20 20:15 Source of Information: Reports: Patient, EMS History Limitations: Reports: Altered Mental Status - History of Present Illness INITIAL COMMENTS - FREE TEXT/NARRATIVE: This 70 yo female patient was brought to the ED by [facility] due to a high blood sugar level. The patient reports she just got out of the hospital the day before yesterday, but does not think she has been taking her insulin since she got home. The patient's blood sugar level was reported as "high" from EMS. The patient had difficulties responding to questions asked. The patient did reports she lives at home with family, but does not know what medications she is currently on. Review of her records demonstrate that she was transferred to [facility] in [place] on 09/29/20 due to an elevated blood sugar, sepsis and hypotension. Discharge records from [facility] have been requested. Onset: Unknown/Unsure Duration: Constant Location: Reports: Generalized Quality: Reports: Other Severity: Severe Improves with: Reports: None Worsens with: Reports: None Context: Reports: Other Associated Symptoms: Reports: No Other Symptoms - Related Data Allergies Allergy/AdvReac Type Severity Reaction Status Date / Time atorvastatin Allergy Rash Verified 09/12/20 22:13 Penicillins Allergy Rash Verified 09/12/20 22:13 simvastatin Allergy Rash Verified 09/12/20 22:13 Home Meds: Home Meds Furosemide 10 mg PO DAILY 05/25/15 [History] Lisinopril 5 mg PO DAILY 05/25/15 [History] Clopidogrel Bisulfate [Plavix] 75 mg PO DAILY 09/12/20 [History] Insulin Aspart [NovoLOG] 6 units PO TIDMEALS 09/13/20 [History] Insulin Detemir [Levemir Flextouch] 30 units SUBCUT BID 09/13/20 [History] Metoprolol Tartrate 25 mg PO BID 09/13/20 [History] Non-Formulary Medication [NF Drug] 1.5 mg SUBCUT .WEEKLY 09/13/20 [History] Omeprazole 20 mg PO ACBREAKFAST 09/13/20 [History] Past Medical History Cardiovascular History: Reports: Heart Failure, Hypertension, [place] Respiratory History: Reports: COPD Gastrointestinal History: Reports: Cholelithiasis Genitourinary History: Reports: Urinary Incontinence 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: Reports: Neurological History: Reports: CVA, Migraines Endocrine/Metabolic History: Reports: Diabetes, Type II, Other (See Below) - Infectious Disease History Infectious Disease History: Reports: Hepatitis B, MRSA, Shingles - Past Surgical History HEENT Surgical History: Reports: None Cardiovascular Surgical History: Reports: Coronary Artery Bypass GI Surgical History: Reports: Appendectomy, Cholecystectomy, Hernia, Inguinal Female Surgical History: Reports: Section, Hysterectomy Endocrine Surgical History: Reports: None Neurological Surgical History: Reports: None Social & Family History - Family History Family Medical History: No Pertinent Family History - Tobacco Use Tobacco Use Status *Q: Current Status Unknown - Caffeine Use Caffeine Use: Reports: Coffee - Recreational Drug Use Recreational Drug Use: No - Living Situation & Occupation Living situation: Reports: Alone Occupation: Retired ED ROS GENERAL - Review of Systems Review Of Systems: Comprehensive ROS is negative, except as noted in HPI. ED EXAM GENERAL NO PERIP PULSE - Physical Exam Exam: See Below Exam Limited By: No Limitations General Appearance: Alert, Moderate Distress Eye Exam: Bilateral Eye: EOMI, Normal Inspection, PERRL Ears: Normal External Exam, Normal Canal, Hearing Grossly Normal, Normal TMs Nose: Normal Inspection, Normal Mucosa, No Blood Throat/Mouth: Normal Inspection, Normal Lips, Normal Teeth, Normal Gums, Normal Oropharynx, Normal Voice, No Airway Compromise Head: Atraumatic, Normocephalic Neck: Normal Inspection, Supple, Non-Tender, Full Range of Motion Respiratory/Chest: No Respiratory Distress, Lungs Clear, Normal Breath Sounds, No Accessory Muscle Use, Chest Non-Tender Cardiovascular: Normal Peripheral Pulses, Regular Rate, Rhythm, No Edema, No Gallop, No JVD, No Murmur, No Rub GI/Abdominal: Normal Bowel Sounds, Soft, Non-Tender, No Organomegaly, No Distention, No Abnormal Bruit, No Mass (Female) Exam: Deferred Rectal (Female) Exam: Deferred Back Exam: Normal Inspection, Full Range of Motion, NT Extremities: Normal Inspection, Normal Range of Motion, Non-Tender, Normal Capillary Refill, No Pedal Edema Neurological: Alert, Confused Psychiatric: Depressed Mood, Flat Affect Skin Exam: Warm, Dry, Intact, Normal Color, No Rash Lymphatic: No Adenopathy Course - Vital Signs Last Recorded V/S: Last Vital Signs Temp 96.9 F 10/09/20 19:38 Pulse 77 10/09/20 19:38 Resp 18 10/09/20 19:38 BP 108/48 L 10/09/20 19:38 Pulse Ox 97 10/09/20 19:38 - Orders/Labs/Meds Orders: Active Orders 24 hr Category Date Time Status Admission Diagnosis [ADT] Urgent ADT 10/09/20 21:42 Ordered Admission Status [Patient Status] [ADT] Routine ADT 10/09/20 21:42 Ordered Blood Glucose Check, Bedside [RC] ONETIME Care 10/09/20 21:15 Ordered Urinary Catheter Assessment [RC] ASDIRECTED Care 10/09/20 20:55 Active Urinary Catheter Insertion [Insert Urinary Catheter] [ Care 10/09/20 21:00 Ordered OM.PC] Q24H CLOSTRIDIUM DIFFICILE TOX RFLX [MREF] Stat Lab 10/09/20 20:37 Ordered COVID-19/FLU A+B [MOLEC] Urgent Lab 10/09/20 20:18 Ordered CULTURE STOOL [RM] Stat Lab 10/09/20 20:37 Ordered CULTURE URINE [RM] Stat Lab 10/09/20 20:54 Received REFLEX LACTIC ACID YES OR NO [CHEM] Routine Lab 10/09/20 19:53 Received SHIGA TOXIN 1 & 2 [MREF] Stat Lab 10/09/20 20:57 Received Dextrose 50% in Water Med 10/09/20 20:18 Active 50 ml IVPUSH Q15M PRN Glucagon,Human Recombinant [GlucaGen] Med 10/09/20 20:18 Active 1 mg IM Q15M PRN Isolation [COMM] Stat Oth 10/09/20 20:37 Ordered Medication Orders Dextrose/Water (50% Dextrose In Water 50 Ml Syringe) 50 ml IVPUSH Q15M PRN PRN Reason: Hypoglycemia Glucagon (Glucagon,Human Recombinant 1 Mg Vial) 1 mg IM Q15M PRN PRN Reason: Hypoglycemia Labs: Laboratory Tests 10/09/20 10/09/20 10/09/20 Range/Units 18:38 19:07 19:07 WBC 7.0 (5.0-10.0) 10^3/uL RBC 4.22 (4.2-5.4) 10^6/uL Hgb 10.5 L (12.0-16.0) g/dL Hct 34.3 L (37.0-47.0) % MCV 81.3 D (80-100) fL MCH 24.9 L (27.0-34.0) pg MCHC 30.6 L (33.0-35.0) g/dL Plt Count 350 (150-450) 10^3/uL Neut % (Auto) 74.4 (42.2-75.2) % Lymph % (Auto) 13.4 L (20.5-50.1) % [place] % (Auto) 12.1 H (2-8) % Eos % (Auto) 0.0 L (1.0-3.0) % Baso % (Auto) 0.1 (0.0-1.0) % ABG pH (7.35-7.45) ABG pCO2 (35-45) mmHg ABG pO2 (70-100) mmHg ABG HCO3 (22-26) mmol/L ABG O2 Saturation (95-100) % ABG Base Excess ((-2)-(+3)) mmol/L Vignesh Test O2 Delivery Device Sodium 138 D (136-145) mmol/L Potassium 3.2 L D (3.5-5.1) mmol/L Chloride 103 (98-107) mmol/L Carbon Dioxide 9 L (21-32) mmol/L Anion Gap 29.2 H (7-13) mEq/L BUN 35 H (7-18) mg/dL Creatinine 2.05 H (0.55-1.02) mg/dL Est Cr Clr Drug Dosing TNP Estimated GFR (MDRD) 24 BUN/Creatinine Ratio 17.1 (No establ ref range) Glucose 628 H* (70-99) mg/dL POC Glucose > 600 H* (70-99) mg/dL Lactic Acid (0.4-2.0) mmol/L Calcium 8.6 (8.5-10.1) mg/dL Magnesium (1.8-2.4) mg/dL Total Bilirubin 0.4 (0.2-1.0) mg/dL AST 7 L (15-37) U/L ALT 17 (14-59) U/L Alkaline Phosphatase 134 H (46-116) U/L Ammonia (11-32) umol/L B-Natriuretic Peptide (0-100) pg/ml Total Protein 5.9 L (6.4-8.2) g/dL Albumin 2.4 L (3.4-5.0) g/dL Globulin 3.5 Albumin/Globulin Ratio 0.69 Amylase (25-115) U/L Lipase (73-393) U/L Urine Color (YELLOW) Urine Appearance (CLEAR) Urine pH (5.0-9.0) Ur Specific [place] (1.005-1.030) Urine Protein (NEGATIVE) Urine Glucose (UA) (NEGATIVE) Urine Ketones (NEGATIVE) Urine Occult Blood (NEGATIVE) Urine Nitrite (NEGATIVE) Urine Bilirubin (NEGATIVE) Urine Urobilinogen (0.2-1.0) mg/dL Ur Leukocyte Esterase (NEGATIVE) Urine RBC /HPF Urine WBC (0-5/HPF) /HPF Ur Epithelial Cells (NOT SEEN) /HPF Amorphous Sediment (NOT SEEN) /HPF Urine Bacteria (0-FEW/HPF) /HPF Urine Mucus (NOT SEEN) /LPF Urine Yeast (NOT SEEN) /HPF Salicylates (2.8-20(Therapeutic)) mg/dL Urine Opiates Screen (NEGATIVE) Ur Oxycodone Screen (NEGATIVE) Urine Methadone Screen (NEGATIVE) Acetaminophen (10-30 (Therapeutic)) ug/mL Ur Barbiturates Screen (NEGATIVE) U Tricyclic Antidepress (NEGATIVE) Ur Phencyclidine Scrn (NEGATIVE) Ur Amphetamine Screen (NEGATIVE) U Methamphetamines Scrn (NEGATIVE) Urine MDMA Screen (NEGATIVE) U Benzodiazepines Scrn (NEGATIVE) Urine Cocaine Screen (NEGATIVE) U Marijuana (THC) Screen (NEGATIVE) Ethyl Alcohol (0) mg/dL Ketones 10/09/20 10/09/20 10/09/20 Range/Units 19:07 19:07 19:07 WBC (5.0-10.0) 10^3/uL RBC (4.2-5.4) 10^6/uL Hgb (12.0-16.0) g/dL Hct (37.0-47.0) % MCV (80-100) fL MCH (27.0-34.0) pg MCHC (33.0-35.0) g/dL Plt Count (150-450) 10^3/uL Neut % (Auto) (42.2-75.2) % Lymph % (Auto) (20.5-50.1) % [place] % (Auto) (2-8) % Eos % (Auto) (1.0-3.0) % Baso % (Auto) (0.0-1.0) % ABG pH (7.35-7.45) ABG pCO2 (35-45) mmHg ABG pO2 (70-100) mmHg ABG HCO3 (22-26) mmol/L ABG O2 Saturation (95-100) % ABG Base Excess ((-2)-(+3)) mmol/L Vignesh Test O2 Delivery Device Sodium (136-145) mmol/L Potassium (3.5-5.1) mmol/L Chloride (98-107) mmol/L Carbon Dioxide (21-32) mmol/L Anion Gap (7-13) mEq/L BUN (7-18) mg/dL Creatinine (0.55-1.02) mg/dL Est Cr Clr Drug Dosing Estimated GFR (MDRD) BUN/Creatinine Ratio (No establ ref range) Glucose (70-99) mg/dL POC Glucose (70-99) mg/dL Lactic Acid 5.2 H* (0.4-2.0) mmol/L Calcium (8.5-10.1) mg/dL Magnesium 2.3 (1.8-2.4) mg/dL Total Bilirubin (0.2-1.0) mg/dL AST (15-37) U/L ALT (14-59) U/L Alkaline Phosphatase (46-116) U/L Ammonia (11-32) umol/L B-Natriuretic Peptide (0-100) pg/ml Total Protein (6.4-8.2) g/dL Albumin (3.4-5.0) g/dL Globulin Albumin/Globulin Ratio Amylase 12 L (25-115) U/L Lipase 19 L (73-393) U/L Urine Color (YELLOW) Urine Appearance (CLEAR) Urine pH (5.0-9.0) Ur Specific [place] (1.005-1.030) Urine Protein (NEGATIVE) Urine Glucose (UA) (NEGATIVE) Urine Ketones (NEGATIVE) Urine Occult Blood (NEGATIVE) Urine Nitrite (NEGATIVE) Urine Bilirubin (NEGATIVE) Urine Urobilinogen (0.2-1.0) mg/dL Ur Leukocyte Esterase (NEGATIVE) Urine RBC /HPF Urine WBC (0-5/HPF) /HPF Ur Epithelial Cells (NOT SEEN) /HPF Amorphous Sediment (NOT SEEN) /HPF Urine Bacteria (0-FEW/HPF) /HPF Urine Mucus (NOT SEEN) /LPF Urine Yeast (NOT SEEN) /HPF Salicylates 4.6 (2.8-20(Therapeutic)) mg/dL Urine Opiates Screen (NEGATIVE) Ur Oxycodone Screen (NEGATIVE) Urine Methadone Screen (NEGATIVE) Acetaminophen 0 L (10-30 (Therapeutic)) ug/mL Ur Barbiturates Screen (NEGATIVE) U Tricyclic Antidepress (NEGATIVE) Ur Phencyclidine Scrn (NEGATIVE) Ur Amphetamine Screen (NEGATIVE) U Methamphetamines Scrn (NEGATIVE) Urine MDMA Screen (NEGATIVE) U Benzodiazepines Scrn (NEGATIVE) Urine Cocaine Screen (NEGATIVE) U Marijuana (THC) Screen (NEGATIVE) Ethyl Alcohol < 3 (0) mg/dL Ketones Large-80 mg/dl 10/09/20 10/09/20 10/09/20 Range/Units 19:07 20:05 20:05 WBC (5.0-10.0) 10^3/uL RBC (4.2-5.4) 10^6/uL Hgb (12.0-16.0) g/dL Hct (37.0-47.0) % MCV (80-100) fL MCH (27.0-34.0) pg MCHC (33.0-35.0) g/dL Plt Count (150-450) 10^3/uL Neut % (Auto) (42.2-75.2) % Lymph % (Auto) (20.5-50.1) % [place] % (Auto) (2-8) % Eos % (Auto) (1.0-3.0) % Baso % (Auto) (0.0-1.0) % ABG pH 7.28 L (7.35-7.45) ABG pCO2 24 L (35-45) mmHg ABG pO2 83 (70-100) mmHg ABG HCO3 11.0 L (22-26) mmol/L ABG O2 Saturation 97 (95-100) % ABG Base Excess -14 L ((-2)-(+3)) mmol/L Vignesh Test pos O2 Delivery Device Room air Sodium (136-145) mmol/L Potassium (3.5-5.1) mmol/L Chloride (98-107) mmol/L Carbon Dioxide (21-32) mmol/L Anion Gap (7-13) mEq/L BUN (7-18) mg/dL Creatinine (0.55-1.02) mg/dL Est Cr Clr Drug Dosing Estimated GFR (MDRD) BUN/Creatinine Ratio (No establ ref range) Glucose (70-99) mg/dL POC Glucose (70-99) mg/dL Lactic Acid (0.4-2.0) mmol/L Calcium (8.5-10.1) mg/dL Magnesium (1.8-2.4) mg/dL Total Bilirubin (0.2-1.0) mg/dL AST (15-37) U/L ALT (14-59) U/L Alkaline Phosphatase (46-116) U/L Ammonia 33 H (11-32) umol/L B-Natriuretic Peptide 1140 H (0-100) pg/ml Total Protein (6.4-8.2) g/dL Albumin (3.4-5.0) g/dL Globulin Albumin/Globulin Ratio Amylase (25-115) U/L Lipase (73-393) U/L Urine Color (YELLOW) Urine Appearance (CLEAR) Urine pH (5.0-9.0) Ur Specific [place] (1.005-1.030) Urine Protein (NEGATIVE) Urine Glucose (UA) (NEGATIVE) Urine Ketones (NEGATIVE) Urine Occult Blood (NEGATIVE) Urine Nitrite (NEGATIVE) Urine Bilirubin (NEGATIVE) Urine Urobilinogen (0.2-1.0) mg/dL Ur Leukocyte Esterase (NEGATIVE) Urine RBC /HPF Urine WBC (0-5/HPF) /HPF Ur Epithelial Cells (NOT SEEN) /HPF Amorphous Sediment (NOT SEEN) /HPF Urine Bacteria (0-FEW/HPF) /HPF Urine Mucus (NOT SEEN) /LPF Urine Yeast (NOT SEEN) /HPF Salicylates (2.8-20(Therapeutic)) mg/dL Urine Opiates Screen (NEGATIVE) Ur Oxycodone Screen (NEGATIVE) Urine Methadone Screen (NEGATIVE) Acetaminophen (10-30 (Therapeutic)) ug/mL Ur Barbiturates Screen (NEGATIVE) U Tricyclic Antidepress (NEGATIVE) Ur Phencyclidine Scrn (NEGATIVE) Ur Amphetamine Screen (NEGATIVE) U Methamphetamines Scrn (NEGATIVE) Urine MDMA Screen (NEGATIVE) U Benzodiazepines Scrn (NEGATIVE) Urine Cocaine Screen (NEGATIVE) U Marijuana (THC) Screen (NEGATIVE) Ethyl Alcohol (0) mg/dL Ketones 10/09/20 10/09/20 10/09/20 Range/Units 20:54 20:54 21:18 WBC (5.0-10.0) 10^3/uL RBC (4.2-5.4) 10^6/uL Hgb (12.0-16.0) g/dL Hct (37.0-47.0) % MCV (80-100) fL MCH (27.0-34.0) pg MCHC (33.0-35.0) g/dL Plt Count (150-450) 10^3/uL Neut % (Auto) (42.2-75.2) % Lymph % (Auto) (20.5-50.1) % [place] % (Auto) (2-8) % Eos % (Auto) (1.0-3.0) % Baso % (Auto) (0.0-1.0) % ABG pH (7.35-7.45) ABG pCO2 (35-45) mmHg ABG pO2 (70-100) mmHg ABG HCO3 (22-26) mmol/L ABG O2 Saturation (95-100) % ABG Base Excess ((-2)-(+3)) mmol/L Vigensh Test O2 Delivery Device Sodium (136-145) mmol/L Potassium (3.5-5.1) mmol/L Chloride (98-107) mmol/L Carbon Dioxide (21-32) mmol/L Anion Gap (7-13) mEq/L BUN (7-18) mg/dL Creatinine (0.55-1.02) mg/dL Est Cr Clr Drug Dosing Estimated GFR (MDRD) BUN/Creatinine Ratio (No establ ref range) Glucose (70-99) mg/dL POC Glucose 357 H (70-99) mg/dL Lactic Acid (0.4-2.0) mmol/L Calcium (8.5-10.1) mg/dL Magnesium (1.8-2.4) mg/dL Total Bilirubin (0.2-1.0) mg/dL AST (15-37) U/L ALT (14-59) U/L Alkaline Phosphatase (46-116) U/L Ammonia (11-32) umol/L B-Natriuretic Peptide (0-100) pg/ml Total Protein (6.4-8.2) g/dL Albumin (3.4-5.0) g/dL Globulin Albumin/Globulin Ratio Amylase (25-115) U/L Lipase (73-393) U/L Urine Color Yellow (YELLOW) Urine Appearance Turbid (CLEAR) Urine pH 6.0 (5.0-9.0) Ur Specific [place] 1.015 (1.005-1.030) Urine Protein 30 H (NEGATIVE) Urine Glucose (UA) >=1000 H (NEGATIVE) Urine Ketones 40 H (NEGATIVE) Urine Occult Blood Trace-intact H (NEGATIVE) Urine Nitrite Negative (NEGATIVE) Urine Bilirubin Small H (NEGATIVE) Urine Urobilinogen 0.2 (0.2-1.0) mg/dL Ur Leukocyte Esterase Small H (NEGATIVE) Urine RBC 20-30 H /HPF Urine WBC >100 H (0-5/HPF) /HPF Ur Epithelial Cells Few (NOT SEEN) /HPF Amorphous Sediment Few (NOT SEEN) /HPF Urine Bacteria Few (0-FEW/HPF) /HPF Urine Mucus Few H (NOT SEEN) /LPF Urine Yeast Many H (NOT SEEN) /HPF Salicylates (2.8-20(Therapeutic)) mg/dL Urine Opiates Screen Negative (NEGATIVE) Ur Oxycodone Screen Negative (NEGATIVE) Urine Methadone Screen Negative (NEGATIVE) Acetaminophen (10-30 (Therapeutic)) ug/mL Ur Barbiturates Screen Negative (NEGATIVE) U Tricyclic Antidepress Negative (NEGATIVE) Ur Phencyclidine Scrn Negative (NEGATIVE) Ur Amphetamine Screen Negative (NEGATIVE) U Methamphetamines Scrn Negative (NEGATIVE) Urine MDMA Screen Negative (NEGATIVE) U Benzodiazepines Scrn Negative (NEGATIVE) Urine Cocaine Screen Negative (NEGATIVE) U Marijuana (THC) Screen Negative (NEGATIVE) Ethyl Alcohol (0) mg/dL Ketones Meds: Medications Generic Name Dose Route Start Last Admin Trade Name Freq PRN Reason Stop Dose Admin Dextrose/Water 50 ml 10/09/20 20:18 50% Dextrose In Water 50 Ml Syringe IVPUSH Q15M PRN Hypoglycemia Glucagon 1 mg 10/09/20 20:18 Glucagon,Human Recombinant 1 Mg Vial IM Q15M PRN Hypoglycemia Discontinued Medications Generic Name Dose Route Start Last Admin Trade Name Freq PRN Reason Stop Dose Admin Sodium Chloride 1,000 mls @ 999 mls/hr 10/09/20 20:18 10/09/20 20:31 Normal Saline IV 10/09/20 21:18 999 mls/hr .BOLUS ONE Administration Insulin Human Regular 5 unit 10/09/20 20:18 10/09/20 20:31 Insulin Regular, Human 100 Units/Ml 3 Ml Vial IV 10/09/20 20:19 5 units ONETIME ONE Administration Departure - Departure Time of Disposition: 21:45 Disposition: Admitted As Inpatient 67 Condition: Serious Clinical Impression: DKA (diabetic ketoacidoses) Qualifiers: Diabetes mellitus type: type 2 Diabetes mellitus complication detail: without coma Qualified Code(s): E11.10 - Type 2 diabetes mellitus with ketoacidosis without coma - Discharge Information *PRESCRIPTION DRUG MONITORING PROGRAM REVIEWED*: Not Applicable *COPY OF PRESCRIPTION DRUG MONITORING REPORT IN PATIENT STEFANO: Not Applicable Care Plan Goals: Discussed the patient's history, examination, lab and treatments with Dr. Alfaro. Dr. Alfaro accepted the patient for continued evaluation and management as an inpatient at [facility]. Sepsis Event Note (ED) - Evaluation Sepsis Screening Result: No Definite Risk - Focused Exam Vital Signs: Vital Signs Temp Pulse Resp BP Pulse Ox 10/09/20 19:38 96.9 F 77 18 108/48 L 97 - My Orders Last 24 Hours: My Active Orders 10/09/20 20:18 COVID-19/FLU A+B [MOLEC] Urgent Dextrose 50% in Water 50 ml IVPUSH Q15M PRN Glucagon,Human Recombinant [GlucaGen] 1 mg IM Q15M PRN 10/09/20 20:37 CLOSTRIDIUM DIFFICILE TOX RFLX [MREF] Stat CULTURE STOOL [RM] Stat Isolation [COMM] Stat 10/09/20 20:54 CULTURE URINE [RM] Stat 10/09/20 20:55 Urinary Catheter Assessment [RC] ASDIRECTED 10/09/20 20:57 SHIGA TOXIN 1 & 2 [MREF] Stat 10/09/20 21:00 Urinary Catheter Insertion [Insert Urinary Catheter] [OM.PC] Q24H 10/09/20 21:15 Blood Glucose Check, Bedside [RC] ONETIME 10/09/20 21:42 Admission Diagnosis [ADT] Urgent Admission Status [Patient Status] [ADT] Routine - Assessment/Plan Last 24 Hours: My Active Orders 10/09/20 20:18 COVID-19/FLU A+B [MOLEC] Urgent Dextrose 50% in Water 50 ml IVPUSH Q15M PRN Glucagon,Human Recombinant [GlucaGen] 1 mg IM Q15M PRN 10/09/20 20:37 CLOSTRIDIUM DIFFICILE TOX RFLX [MREF] Stat CULTURE STOOL [RM] Stat Isolation [COMM] Stat 10/09/20 20:54 CULTURE URINE [RM] Stat 10/09/20 20:55 Urinary Catheter Assessment [RC] ASDIRECTED 10/09/20 20:57 SHIGA TOXIN 1 & 2 [MREF] Stat 10/09/20 21:00 Urinary Catheter Insertion [Insert Urinary Catheter] [OM.PC] Q24H 10/09/20 21:15 Blood Glucose Check, Bedside [RC] ONETIME 10/09/20 21:42 Admission Diagnosis [ADT] Urgent Admission Status [Patient Status] [ADT] Routine
[2020-10-09 22:33] LABS: CORONAVIRUS COVID-19 NAA NEGATIVE (NEGATIVE)
[2020-10-09] MEDS ORDERED: Acetaminophen 325 MG Tab PO PRN (23:14)
[2020-10-09] MEDS ORDERED: Ondansetron 4 MG/2 ML SDV IVPUSH PRN (23:14)
[2020-10-09] MEDS ORDERED: Sodium Chloride 0.9% 10 ML Syringe FLUSH PRN (23:14)
[2020-10-09] MEDS ORDERED: Sodium Chloride 0.9% 1,000 ML IV SCH (23:15)
--- NOTE | 2020-10-09 23:27 | PCM.SN.2 ---
- Free Text/Narrative Note: START OF DOCTOR [facility] HISTORY AND PHYSICAL / CONSULTATION NOTE Chief Complaint: "My blood sugar was high" History of Present Illness: The patient is a 70-year-old female who presents with chief complaint of hyperglycemia which was found to be DKA in the emergency department. The patient is a poor historian. She states that her blood sugar check was in the 600s at home and she claims he compliant with her medication although she mostly checks her blood sugar twice. Patient has been hospitalized previously with DKA. She admits to onset of nausea and an episode of emesis and mild abdominal pain. She denies fever, rigors, cough, diarrhea although it is reported the emergency department that the patient's family, indicates that the patient has been experiencing diarrhea. The patient denies dyspnea. She denies blurry vision. She denies to polydipsia, polyuria, and polyphagia. She presents for further evaluation Surgical History: Cholecystectomy, appendectomy, hysterectomy, CABG, , right inguinal herniorrhaphy Family History: Cancer, stroke, diabetes, coronary artery disease, hypertension, hyperlipidemia Social History: Tobacco: Active smoker Alcohol: Denies Caffeine: Coffee Drugs: Never Allergies: Penicillin, Lipitor, Zocor Code Status: Full Pertinent Laboratory Results / Pertinent Radiology Results / Pertinent Diagnostic Results / Pertinent Vital Signs: Blood pressure 108/48, pulse 77, respirations 18, temperature 96.9 degrees, 90% room air, potassium 3.2, creatinine 2.05, glucose is 128, hemoglobin is 10.5 Physical Examination: General: -Alert however has slow mentation -No acute distress -No dyspnea -No tachypnea Head: -Atraumatic -Normocephalic Eyes: -Pupils equally round and reactive to light and accommodation -Extraocular muscles intact Neurological: -Cranial nerves II-XII intact Neck: -No jugular venous distention -No thyromegaly -No cervical lymphadenopathy Heart: -Regular rate -Regular rhythm -No murmurs -No gallops -No rubs Lungs: -No wheeze -No rhonchi -No rales -Distant breath sounds bilaterally Abdomen: -Normal bowel sounds in all four quadrants -No rebound -No guarding -No tenderness Extremities: -2/4 pulse in all four extremities -No clubbing -No cyanosis -Trace bipedal edema -No calf tenderness present bilaterally -Negative Homans sign bilaterally Musculoskeletal: -5/5 bilateral upper extremity strength -5/5 bilateral lower extremity strength -Sensorium of bilateral upper extremities are equal and intact -Sensorium of bilateral lower extremities are equal and intact Additional Details / Additional Findings / Exceptions / Miscellaneous: Assessment / Plan: DKA/diabetes. IV normal saline 100 mL/h while closely monitoring her respiratory status given her history of CHF plus insulin drip per protocol plus BMP check every 4 hours plus fingerstick glucose check hourly. Nursing communication for To be notified when serum glucose is less than 140 Purported diarrhea. IV nursing 100 mL/h. Currently pending: C. difficile, ova and parasites, stool culture, stool WBC. Flagyl 500 mg IV every 6 hours History of elevated lipase Hyperammonemiamodest. Will monitor ammonia levels intermittently Acute renal insufficiency. Monitor creatinine level intermittently. IV normal saline 100 mL/h Hypokalemia. Will monitor potassium levels intermittently and supplement as necessary Urinary tract infection. Rocephin 1 g IV daily Funguria. Diflucan 200 mg p.o. daily until 1:39 PM on October 22, 2020 History of CVA History of cholelithiasis Anemia. Will monitor hemoglobin level intermittently. Check serum ferritin, iron panel, fecal occult blood COPD CHF Coronary artery disease, status post FL, status post CABG GERD Hypertension Smoker. Patient becomes regarding smoking cessation History of migraine Insomnia DVT prophylaxis. Heparin 5000 units subcutaneously every 12 hours Disposition: At the time of admission, the patient's home medications were pending input to the EMR/BHR system. Once they are input, they will be reviewed and reconciled. Anticipate discharge within 48 hours END OF DOCTOR EMAMIS HISTORY AND PHYSICAL / CONSULTATION NOTE
[2020-10-09] MEDS ORDERED: Dextrose 5%-0.9% NaCl 1,000 ML IV SCH (23:45)
[2020-10-09] MEDS ORDERED: metroNIDAZOLE/Normal Saline 100 ML ONE (23:46)
[2020-10-09 23:53] LABS: ANION GAP 18.9 mEq/L (7-13)
[2020-10-10] MEDS ORDERED: cefTRIAXone 1 GM in Sodium Chloride 0.9% 50 ML IV SCH ×2
[2020-10-10] MEDS: Potassium Chloride 10 MEQ Tab.ER PO SCH ×5 (00:01→11:41)
[2020-10-10] MEDS: Fluconazole 100 MG Tab PO SCH ×2 (00:01→08:56)
[2020-10-10] MEDS: Heparin Sodium 5,000 Units/ML Vial SUBCUT SCH ×2 (00:02→08:57)
--- NOTE | 2020-10-10 00:14 | CR ---
PROCEDURE INFORMATION: Exam: XR Chest Exam date and time: 10/09/2020 11:30 PM Age: 70 years old Clinical indication: Other: Encephalopathy TECHNIQUE: Imaging protocol: XR of the chest. Views: 1 view. COMPARISON: CR Chest 1V Frontal 09/29/2020 10:25 AM FINDINGS: Tubes, catheters and devices: Status post open heart surgery with sternal wires noted. Lungs: No acute infiltrate or effusion. Pleural spaces: Unremarkable. No pleural effusion. No pneumothorax. Heart/Mediastinum: Unremarkable. No cardiomegaly. Bones/joints: Unremarkable. IMPRESSION: 1. Status post open heart surgery with sternal wires noted. 2. No acute infiltrate or effusion.
[2020-10-10] MEDS: 50% Dextrose in Water 50 ML Syringe IVPUSH PRN ×4 (03:17→07:34)
[2020-10-10 04:27] LABS: ANION GAP 12.9 mEq/L (7-13)
[2020-10-10] MEDS: metroNIDAZOLE/Normal Saline 500 MG in Premix Bag 100 BAG IV SCH ×4 (06:06→11:38)
[2020-10-10] MEDS ORDERED: 50% Dextrose in Water 50 ML Syringe IVPUSH PRN (07:38)
[2020-10-10] MEDS ORDERED: Glucagon,Human Recombinant 1 MG Vial IM PRN (07:38)
--- NOTE | 2020-10-10 07:38 | PCM.SN.2 ---
- Free Text/Narrative Note: START OF DOCTOR GRANT PROGRESS NOTE Subjective: The patient Vinny that she is feeling much better compared to my encounter with her on October 09, 2020. Overnight she denies fever, rigors, nausea, vomiting, cough, wheeze, abdominal pain, chest pain, dyspnea, or any other constitutional complaints. I explained to the patient her current medical condition and plan of care I have answered all of her questions Objective: General: -Alert -No acute distress -No dyspnea -No tachypnea Heart: -Regular rate -Regular rhythm -No murmurs -No gallops -No rubs Lungs: -No wheeze -No rhonchi -No rales Abdomen: -Normal bowel sounds in all four quadrants -No rebound -No guarding -No tenderness Extremities: -2/4 pulse in all four extremities -No clubbing -No cyanosis -No edema Additional Details / Additional Findings / Exceptions / Miscellaneous: Pertinent Laboratory Results / Pertinent Radiology Results / Pertinent Diagnostic Results / Pertinent Vital Signs: Blood pressure 96/44, hemoglobin 9.4, MCV 77, potassium 2.9, creatinine 1.37 Assessment / Plan: DKAresolved/diabetes. IV normal saline at 75 mils per hour. Will check fingerstick glucose every 4 hours and provide sulci scale plus Lantus 30 units subcutaneously every 12 hours Purported diarrhea. Currently pending: C. difficile, ova and parasites, stool culture, stool WBC. IV normal saline at 75 mils per hour plus Flagyl 500 mg IV every 6 hours History of elevated lipase Hyperammonemiamodest. Will monitor ammonia levels intermittently Acute renal insufficiency. Monitor creatinine level intermittently. IV normal saline at 75 mL's per hour Hypokalemia. Will monitor potassium levels intermittently and supplement as necessary Urinary tract infection. Rocephin 1 g IV daily Funguria. Diflucan 200 mg p.o. daily until 1:39 PM on October 22, 2020 History of CVA History of cholelithiasis Anemia with borderline iron deficiency. Will monitor hemoglobin level intermittently. Ferrous sulfate 305 mg p.o. twice daily plus vitamin C 500 mg p.o. daily COPD CHF Coronary artery disease, status post ND, status post CABG GERD Hypertension Smoker. Patient becomes regarding smoking cessation History of migraine Insomnia DVT prophylaxis. Heparin 5000 units subcutaneously every 12 hours Disposition: I will request that physical therapy and Occupational Therapy evaluate the patient. I anticipate discharge either on the afternoon/evening of October 10, 2020 or the morning of October 11, 2020 END OF DOCTOR GRANT PROGRESS NOTE
[2020-10-10] MEDS ORDERED: Sodium Chloride 0.9% 1,000 ML IV SCH (07:45)
[2020-10-10] MEDS ORDERED: Ferrous Sulfate 325 MG Tab PO SCH (08:00)
[2020-10-10 08:14] VITALS: PULSE 66
[2020-10-10] MEDS ORDERED: Insulin Glarg,Human.Rec.Analog 100 Unit/ML SUBCUT SCH (09:00)
[2020-10-10] MEDS ORDERED: Ascorbic Acid 500 MG Tab PO SCH (09:00)
[2020-10-10 14:43] VITALS: BP 101/52
--- NOTE | 2020-10-10 16:16 | PCM.SN.2 ---
- Free Text/Narrative Note: START OF DOCTOR EMAMIS DISCHARGE SUMMARY Date of Admission: October 09, 2020 Date of Discharge: 4:11 PM on October 10, 2020 Primary Diagnosis: DKAresolved Secondary Diagnosis: Diabetes Purported diarrhea History of atelectasis Hyperammonemia, resolved acute renal insufficiency, improved Hypokalemia, status post treatment Urinary infection Funguria History of CVA history cholelithiasis Anemia with underlying iron deficiency COPD CHF Coronary artery disease, status post GA, status post CABG GERD Hypertension Smoker History of migraine Insomnia Medical noncompliance Consultations: None Condition on Discharge: Fair Disposition: The patient will be advised to follow-up with her PICC care physician or provider 7 days discharge for hospitalization evaluation. The patient is advised of a blood sugar log checking sugar for today: Before each meal and bedtime documenting both time checked and blood sugar number also the amount of supplemental units of insulin were administered before each meal and at bedtime Discharge Medications: A door EQ p.o. daily Prilosec 20 mg p.o. daily Glycerin 0.4 mg sublingually every 5 minutes urine test pain. She is code 911 if there is no evolution of change after third note Metoprolol 12 5 mg p.o. daily lisinopril 10 mg p.o. daily Insulin detemir 40 units cutaneously daily Insulin aspartate subcutaneously 3 times daily with meals per sliding scale Lasix 10 mg p.o. daily 75 mils p.o. daily Aspirin 81 g p.o. daily Flonase up to her milligrams p.o. daily. B12. 0 refills Ferrous sulfate 325 mg p.o. twice daily Vitamin C 500 g p.o. daily Flagyl n 500 mg p.o. every 6 hours. Quantity 28. 0 refills Ciprofloxacin 500 mg p.o. every 12 hours. C 40. 0 refills END OF DOCTOR EMAMIS DISCHARGE SUMMARY
== END 2020-10-10 17:50 | disposition home or self-care (01) | DRG 638 ==
LOC: DL.ED 18:34 → DL.MS 21:42 → UNDOADMIN 23:13 → EEVIPCON 23:13
PROVIDERS: ADMIT Internal Medicine; ATTEND Internal Medicine
DX: E11.10 Type 2 diabetes mellitus with ketoacidosis without coma (principal); N39.0 Urinary tract infection, site not specified; B49 Unspecified mycosis; E72.20 Disorder of urea cycle metabolism, unspecified; E87.6 Hypokalemia; R19.7 Diarrhea, unspecified; Z20.822 Contact with and (suspected) exposure to COVID-19; I25.10 Atherosclerotic heart disease of native coronary artery without angina pectoris; J44.9 Chronic obstructive pulmonary disease, unspecified; K21.9 Gastro-esophageal reflux disease without esophagitis; I11.0 Hypertensive heart disease with heart failure; F17.200 Nicotine dependence, unspecified, uncomplicated; G47.00 Insomnia, unspecified; D64.9 Anemia, unspecified; N28.89 Other specified disorders of kidney and ureter; I50.9 Heart failure, unspecified; R32 Unspecified urinary incontinence; Z79.4 Long term (current) use of insulin; I25.2 Old myocardial infarction; Z95.0 Presence of cardiac pacemaker; Z91.14 Patient's other noncompliance with medication regimen; Z90.49 Acquired absence of other specified parts of digestive tract; Z90.710 Acquired absence of both cervix and uterus; Z95.1 Presence of aortocoronary bypass graft; Z88.0 Allergy status to penicillin; Z88.8 Allergy status to other drugs, medicaments and biological substances; Z71.6 Tobacco abuse counseling; Z79.899 Other long term (current) drug therapy; Z86.73 Personal history of transient ischemic attack (TIA), and cerebral infarction without residual deficits; Z79.01 Long term (current) use of anticoagulants
CPT/HCPCS: 0240U; 36415; 36600; 71045; 80048; 80053; 80143; 80179; 80305-QW; 80307; 81001; 82009; 82140; 82150; 82272; 82728; 82803; 82947; 83540; 83550; 83605; 83690; 83735; 83880; 85025; 87045; 87046; 87086; 87177; 87206; 87207; 87493; 87899; 97161-GP; 99284; 99284-25; A9270-GY; J0696; J1644; J1815-GY; J3490; J7030; J7042

== ENCOUNTER 2021-01-13 12:14 | Emergency (ER) | payer MEDICARE, BC ==
[2021-01-13 13:08] VITALS: BP 168/84; PULSE 82
--- NOTE | 2021-01-13 14:43 | EDM.PDOC ---
ED HPI GENERAL MEDICAL PROBLEM - General Chief Complaint: Lower Extremity Injury/Pain Stated Complaint: LEFT LEG SWOLLEN AND HOT Time Seen by Provider: 01/13/21 14:25 Source of Information: Reports: Patient History Limitations: Reports: No Limitations - History of Present Illness INITIAL COMMENTS - FREE TEXT/NARRATIVE: This 70 yo female patient was brought to the ED by her daughter due to redness and swelling in her right lower extremity. The patient reports she currently does not have any pain in the extremity, but has noticed the redness and swelling. The daughter reports they have given the patient an extra water pill, but the swelling has not reduced. The daughter reports they attempted to get an appointment in the clinic, but could not get one today. Onset: Gradual Duration: Day(s):, Constant, Getting Worse Location: Reports: Lower Extremity, Left Quality: Reports: Other Severity: Moderate Improves with: Reports: None Worsens with: Reports: None Context: Reports: Other Left Leg Pain Score (Numeric/FACES): 5 - Related Data Allergies Allergy/AdvReac Type Severity Reaction Status Date / Time atorvastatin Allergy Rash Verified 01/13/21 13:16 Penicillins Allergy Rash Verified 01/13/21 13:16 simvastatin Allergy Rash Verified 01/13/21 13:16 Home Meds: Home Meds Furosemide 10 mg PO DAILY 05/25/15 [History] Lisinopril 10 mg PO DAILY 05/25/15 [History] Clopidogrel Bisulfate [Plavix] 75 mg PO DAILY 09/12/20 [History] Insulin Aspart [NovoLOG] 4 - 16 units SUBCUT TIDMEALS 09/13/20 [History] Insulin Detemir [Levemir Flextouch] 35 units SUBCUT DAILY 09/13/20 [History] Metoprolol Tartrate 25 mg PO DAILY 09/13/20 [History] Omeprazole 20 mg PO ACBREAKFAST 09/13/20 [History] Ascorbic Acid [Vitamin C] 500 mg PO DAILY 30 Days #30 tablet 10/10/20 [Rx] Aspirin [Aspirin EC] 81 mg PO DAILY 10/10/20 [History] Nitroglycerin [Nitrostat] 0.4 mg SL ASDIRECTED PRN 10/10/20 [History] Past Medical History HEENT History: Reports: None Cardiovascular History: Reports: Heart Failure, Hypertension, AR Respiratory History: Reports: COPD Gastrointestinal History: Reports: Cholelithiasis Genitourinary History: Reports: Urinary Incontinence EM[employer]MENT [employer] History: Reports: Musculoskeletal History: Reports: None Neurological History: Reports: CVA, Migraines Psychiatric History: Reports: None Endocrine/Metabolic History: Reports: Diabetes, Type II, Other (See Below) Hematologic History: Reports: None Immunologic History: Reports: None Oncologic (Cancer) History: Reports: None Dermatologic History: Reports: None - Infectious Disease History Infectious Disease History: Reports: Hepatitis B, MRSA, Shingles - Past Surgical History Head Surgeries/Procedures: Reports: None HEENT Surgical History: Reports: None Cardiovascular Surgical History: Reports: Coronary Artery Bypass GI Surgical History: Reports: Appendectomy, Cholecystectomy, Hernia, Inguinal Female Surgical History: Reports: Section, Hysterectomy Endocrine Surgical History: Reports: None Neurological Surgical History: Reports: None Social & Family History - Family History Family Medical History: No Pertinent Family History - Tobacco Use Tobacco Use Status *Q: Current Every Day Tobacco User Years of Tobacco use: 40 Packs/Tins Daily: 1 - Caffeine Use Caffeine Use: Reports: Coffee - Recreational Drug Use Recreational Drug Use: No - Living Situation & Occupation Living situation: Reports: Alone Occupation: Retired Review of Systems - Review of Systems Review Of Systems: Comprehensive ROS is negative, except as noted in HPI. ED EXAM, GENERAL - Physical Exam Exam: See Below Exam Limited By: No Limitations General Appearance: Alert, WD/WN, Mild Distress Eye Exam: Bilateral Eye: EOMI, Normal Inspection, PERRL Ears: Normal External Exam, Normal Canal, Hearing Grossly Normal, Normal TMs Nose: Normal Inspection, Normal Mucosa, No Blood Throat/Mouth: Normal Inspection, Normal Lips, Normal Teeth, Normal Gums, Normal Oropharynx, Normal Voice, No Airway Compromise Head: Atraumatic, Normocephalic Neck: Normal Inspection, Supple, Non-Tender, Full Range of Motion Respiratory/Chest: No Respiratory Distress, Lungs Clear, Normal Breath Sounds, No Accessory Muscle Use, Chest Non-Tender Cardiovascular: Normal Peripheral Pulses, Regular Rate, Rhythm, No Edema, No Gallop, No JVD, No Murmur, No Rub GI/Abdominal: Normal Bowel Sounds, Soft, Non-Tender, No Organomegaly, No Distention, No Abnormal Bruit, No Mass (Female) Exam: Deferred Rectal (Female) Exam: Deferred Back Exam: Normal Inspection, Full Range of Motion, NT Extremities: Normal Inspection, Normal Range of Motion, Non-Tender, Normal Capillary Refill, No Pedal Edema Neurological: Alert, Oriented, CN II-XII Intact, Normal Cognition, Normal Gait, Normal Reflexes, No Motor/Sensory Deficits Psychiatric: Normal Affect, Normal Mood Skin Exam: Warm, Dry, Intact, Normal Color, No Rash Lymphatic: No Adenopathy Course - Vital Signs Last Recorded V/S: Last Vital Signs Temp 96.8 F L 01/13/21 13:07 Pulse 82 01/13/21 13:07 Resp 18 01/13/21 13:07 BP 168/84 H 01/13/21 13:07 Pulse Ox 94 L 01/13/21 13:07 - Orders/Labs/Meds Orders: Active Orders 24 hr Category Date Time Status Venous Doppler Lwr Ext Lt [US] Urgent Exams 01/13/21 15:56 Ordered CULTURE BLOOD [BC] Stat Lab 01/13/21 14:54 Received Labs: Laboratory Tests 01/13/21 01/13/21 01/13/21 Range/Units 14:54 14:54 14:54 WBC 7.5 (5.0-10.0) 10^3/uL RBC 4.61 (4.2-5.4) 10^6/uL Hgb 11.3 L D (12.0-16.0) g/dL Hct 35.5 L (37.0-47.0) % MCV 77.0 L (80-100) fL MCH 24.5 L (27.0-34.0) pg MCHC 31.8 L (33.0-35.0) g/dL Plt Count 281 (150-450) 10^3/uL Neut % (Auto) 79.4 H (42.2-75.2) % Lymph % (Auto) 13.4 L (20.5-50.1) % [place] % (Auto) 7.1 (2-8) % Eos % (Auto) 0.0 L (1.0-3.0) % Baso % (Auto) 0.1 (0.0-1.0) % D-Dimer, Quantitative 1100 H (0-400) ng/mL Sodium 140 (136-145) mmol/L Potassium 3.4 L (3.5-5.1) mmol/L Chloride 103 (98-107) mmol/L Carbon Dioxide 25 (21-32) mmol/L Anion Gap 15.4 H (7-13) mEq/L BUN 14 (7-18) mg/dL Creatinine 0.82 (0.55-1.02) mg/dL Est Cr Clr Drug Dosing 60.62 mL/min Estimated GFR (MDRD) > 60 BUN/Creatinine Ratio 17.1 (No establ ref range) Glucose 452 H* (70-99) mg/dL Lactic Acid (0.4-2.0) mmol/L Calcium 8.3 L (8.5-10.1) mg/dL Total Bilirubin 0.4 (0.2-1.0) mg/dL AST 14 L (15-37) U/L ALT 31 (14-59) U/L Alkaline Phosphatase 217 H (46-116) U/L B-Natriuretic Peptide 1180 H (0-100) pg/ml Total Protein 6.2 L (6.4-8.2) g/dL Albumin 2.7 L (3.4-5.0) g/dL Globulin 3.5 Albumin/Globulin Ratio 0.77 09/13/21 Range/Units 14:54 WBC (5.0-10.0) 10^3/uL RBC (4.2-5.4) 10^6/uL Hgb (12.0-16.0) g/dL Hct (37.0-47.0) % MCV (80-100) fL MCH (27.0-34.0) pg MCHC (33.0-35.0) g/dL Plt Count (150-450) 10^3/uL Neut % (Auto) (42.2-75.2) % Lymph % (Auto) (20.5-50.1) % [place] % (Auto) (2-8) % Eos % (Auto) (1.0-3.0) % Baso % (Auto) (0.0-1.0) % D-Dimer, Quantitative (0-400) ng/mL Sodium (136-145) mmol/L Potassium (3.5-5.1) mmol/L Chloride (98-107) mmol/L Carbon Dioxide (21-32) mmol/L Anion Gap (7-13) mEq/L BUN (7-18) mg/dL Creatinine (0.55-1.02) mg/dL Est Cr Clr Drug Dosing mL/min Estimated GFR (MDRD) BUN/Creatinine Ratio (No establ ref range) Glucose (70-99) mg/dL Lactic Acid 1.3 (0.4-2.0) mmol/L Calcium (8.5-10.1) mg/dL Total Bilirubin (0.2-1.0) mg/dL AST (15-37) U/L ALT (14-59) U/L Alkaline Phosphatase (46-116) U/L B-Natriuretic Peptide (0-100) pg/ml Total Protein (6.4-8.2) g/dL Albumin (3.4-5.0) g/dL Globulin Albumin/Globulin Ratio Meds: Medications Discontinued Medications Generic Name Dose Route Start Last Admin Trade Name Freq PRN Reason Stop Dose Admin Furosemide 40 mg 01/13/21 15:56 Furosemide 40 Mg/4 Ml Vial IVPUSH 01/13/21 15:57 ONETIME ONE - Re-Assessments/Exams Free Text/Narrative Re-Assessment/Exam: 01/13/21 16:46 The patient reports she wanted to leave despite being advised that she would be leaving against medical advice. The patient was advised of the order for IV Lasix due to her elevated BNP, but the patient refused. The patient did have an ultrasound of her left lower extremity, but did not want to wait for the results. The patient advised that she would visit her primary care facility tomorrow to get the results and further treatment. Departure - Departure Time of Disposition: 16:48 Disposition: Against Medical Advice 07 Condition: Poor Clinical Impression: Elevated d-dimer, Elevated brain natriuretic peptide (BNP) level, Edema of left lower extremity - Discharge Information *PRESCRIPTION DRUG MONITORING PROGRAM REVIEWED*: Not Applicable *COPY OF PRESCRIPTION DRUG MONITORING REPORT IN PATIENT STEFANO: Not Applicable Forms: Refusal of Care AMA Care Plan Goals: The patient left against medical advice and refused IV treatment. Sepsis Event Note (ED) - Evaluation Sepsis Screening Result: No Definite Risk - Focused Exam Vital Signs: Vital Signs Temp Pulse Resp BP Pulse Ox 01/13/21 13:07 96.8 F L 82 18 168/84 H 94 L - My Orders Last 24 Hours: My Active Orders 01/13/21 14:54 CULTURE BLOOD [BC] Stat 01/13/21 15:56 Venous Doppler Lwr Ext Lt [US] Urgent - Assessment/Plan Last 24 Hours: My Active Orders 01/13/21 14:54 CULTURE BLOOD [BC] Stat 01/13/21 15:56 Venous Doppler Lwr Ext Lt [US] Urgent
[2021-01-13 15:34] LABS: ANION GAP 15.4 mEq/L (7-13); CHLORIDE,CL 103 mmol/L (98-107); SODIUM,NA 140 mmol/L (136-145)
[2021-01-13] MEDS ORDERED: Furosemide 40 MG/4 ML VIAL IVPUSH ONE (15:56)
--- NOTE | 2021-01-13 17:13 | US ---
PROCEDURE INFORMATION: Exam: US Duplex Left Lower Extremity Veins, Limited Exam date and time: 01/13/2021 4:18 PM Age: 70 years old Clinical indication: Swelling (edema) of limb; Lower extremity, left; Additional info: Lower extremity swelling with elevated d-dimer TECHNIQUE: Imaging protocol: Real-time Duplex ultrasound of the Left Lower Extremity with 2-D escoto scale, color Doppler flow and spectral waveform analysis with image documentation. Limited exam focused on the left lower extremity veins. COMPARISON: No relevant prior studies available. FINDINGS: Left deep veins: Unremarkable. The common femoral, femoral, proximal profunda femoral and popliteal veins are patent without thrombus. Posterior tibial and peroneal veins not visualized likely related to compression secondary to the presence of edema. Normal Doppler waveforms. Normal compressibility and/or augmentation response. Left superficial veins: Unremarkable. Saphenofemoral junction is patent without thrombus. Soft tissues: Lower leg edema. IMPRESSION: Lower leg edema. No DVT.
== END 2021-01-13 17:00 | disposition left against medical advice (07) ==
LOC: DL.ED 12:14
DX: R60.0 Localized edema (principal); R79.89 Other specified abnormal findings of blood chemistry; I11.0 Hypertensive heart disease with heart failure; I50.9 Heart failure, unspecified; I25.2 Old myocardial infarction; J44.9 Chronic obstructive pulmonary disease, unspecified; E11.9 Type 2 diabetes mellitus without complications; Z86.73 Personal history of transient ischemic attack (TIA), and cerebral infarction without residual deficits; Z88.0 Allergy status to penicillin; Z88.1 Allergy status to other antibiotic agents; Z79.82 Long term (current) use of aspirin; Z79.02 Long term (current) use of antithrombotics/antiplatelets; Z79.4 Long term (current) use of insulin; Z79.899 Other long term (current) drug therapy; Z72.0 Tobacco use
CPT/HCPCS: 36415; 80053; 83605; 83880; 85025; 85379; 87040; 93971; 99284-25

== ENCOUNTER 2021-02-16 13:44 | Inpatient (IN) | payer MEDICARE, BC ==
[2021-02-16] MEDS ORDERED: Sodium Chloride 0.9% 1,000 ML IV ONE (14:00)
[2021-02-16] MEDS ORDERED: Glucagon,Human Recombinant 1 MG Vial IM PRN ×2 (14:21→17:10)
[2021-02-16] MEDS ORDERED: 50% Dextrose in Water 50 ML Syringe IVPUSH PRN ×2 (14:21→17:10)
[2021-02-16] MEDS ORDERED: Insulin Regular, Human 100 Units/ML 3 ML Vial IV ONE ×2 (14:21→18:12)
--- NOTE | 2021-02-16 14:25 | EDM.PDOC ---
ED HPI GENERAL MEDICAL PROBLEM - General Chief Complaint: Respiratory Problem Stated Complaint: Respiratory Time Seen by Provider: 02/16/21 14:00 Source of Information: Reports: EMS, RN, RN Notes Reviewed History Limitations: Reports: Altered Mental Status - History of Present Illness INITIAL COMMENTS - FREE TEXT/NARRATIVE: Coreen is a 70 y/o female who presents to the ED via [facility] with complaints of petechiae and injection to her left eye. Upon arrival to this facility the patient is lethargic with AMS; GCS 12 The patient is unable to state why she presents to the ED as her words are incomprehensible. She is obtunded with agonal breathing while not being continually stimulated. The patient is incontinent of dried urine and stool, perineum and buttocks are red with a Stage II pressure sore appreciated to the right cleft. EMS reports they were called by the patient's daughter, her daily daycare teacher, who noted injection to the patient's eye. The daughter reports she was in [place] over the weekend, but left her brother and nephew to care for the patient. Lower Back Pain Score (Numeric/FACES): 6 - Related Data Allergies Allergy/AdvReac Type Severity Reaction Status Date / Time atorvastatin Allergy Rash Verified 01/13/21 13:16 Penicillins Allergy Rash Verified 01/13/21 13:16 simvastatin Allergy Rash Verified 01/13/21 13:16 Home Meds: Home Meds Furosemide 10 mg PO DAILY 05/25/15 [History] Lisinopril 10 mg PO DAILY 05/25/15 [History] Clopidogrel Bisulfate [Plavix] 75 mg PO DAILY 09/12/20 [History] Insulin Aspart [NovoLOG] 8 units SUBCUT WITHMEALSANDBED 09/13/20 [History] Insulin Detemir [Levemir Flextouch] 40 units SUBCUT DAILY 09/13/20 [History] Aspirin [Aspirin EC] 81 mg PO DAILY 10/10/20 [History] Nitroglycerin [Nitrostat] 0.4 mg SL ASDIRECTED PRN 10/10/20 [History] Zolpidem [Ambien] 5 mg PO BEDTIME PRN 02/18/21 [History] Past Medical History HEENT History: Reports: None Cardiovascular History: Reports: Heart Failure, Hypertension, [place] Respiratory History: Reports: COPD Gastrointestinal History: Reports: Cholelithiasis Genitourinary History: Reports: Urinary Incontinence 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: Musculoskeletal History: Reports: None Neurological History: Reports: CVA, Migraines Psychiatric History: Reports: None Endocrine/Metabolic History: Reports: Diabetes, Type II, Other (See Below) Hematologic History: Reports: None Immunologic History: Reports: None Oncologic (Cancer) History: Reports: None Dermatologic History: Reports: None - Infectious Disease History Infectious Disease History: Reports: Hepatitis B, MRSA, Shingles - Past Surgical History Head Surgeries/Procedures: Reports: None HEENT Surgical History: Reports: None Cardiovascular Surgical History: Reports: Coronary Artery Bypass GI Surgical History: Reports: Appendectomy, Cholecystectomy, Hernia, Inguinal Female Surgical History: Reports: Section, Hysterectomy Endocrine Surgical History: Reports: None Neurological Surgical History: Reports: None Social & Family History - Family History Family Medical History: No Pertinent Family History - Caffeine Use Caffeine Use: Reports: Coffee - Living Situation & Occupation Living situation: Reports: Alone Occupation: Retired ED ROS GENERAL - Review of Systems Review Of Systems: Unable To Obtain Reason Not Obtained: Altered Mental Status ED EXAM, GENERAL - Physical Exam Exam: See Below Exam Limited By: Altered Mental Status General Appearance: Obtunded, Obese Eye Exam: Right Eye: Conjunctival Injection, Bilateral Eye: PERRL (4mm) Ears: Normal External Exam, Normal Canal, Hearing Grossly Normal, Normal TMs Ear Exam: Bilateral Ear: Auricle Normal, Canal Normal, TM normal Nose: Normal Inspection, No Blood Throat/Mouth: No Airway Compromise. No: Normal Oropharynx (Dry mucous membranes), Normal Voice Head: Atraumatic, Normocephalic Neck: Normal Inspection Respiratory/Chest: Respiratory Distress, Crackles (To bilateral bases), Rhonchi (Bilaterally), Accessory Muscle Use. No: Wheezing, Stridor, Pleural Rub, Retractions, Prolonged Expiration Cardiovascular: Normal Peripheral Pulses, Regular Rate, Rhythm, No Gallop, No JVD, No Murmur, No Rub. No: No Edema Peripheral Pulses: 1+: Radial (L), Radial (R), Dorsalis Pedis (L), Dorsalis Pedis (R) GI/Abdominal: Normal Bowel Sounds, Soft, No Distention, No Abnormal Bruit, No Mass, Pelvis Stable (Female) Exam: Deferred Rectal (Female) Exam: Deferred Back Exam: Other (German II pressure sore to right gluteal cleft) Extremities: Pedal Edema (+3 pitting, bilaterally), Slow Capillary Refill, Limited Range of Motion Neurological: Confused, Disoriented, Slow to Respond, Memory Loss Remote Events, Memory Loss Recent Events, Abnormal Reflexes, Sensory/Motor Deficit Psychiatric: Flat Affect Skin Exam: No Rash, Cool, Diaphoretic, Pallor, Wound/Incision (See above). No: Intact Lymphatic: No Adenopathy #1 Interpretation EKG Date: 02/16/21 Time: 14:11 Rhythm: NSR Rate (Beats/Min): 75 [place]: Normal P-Wave: Present QRS: Wide (0.165) ST-T: Normal QT: Prolonged (.509) ID/PQ Interval: 0.165 Comparison: No Change EKG Interpretation Comments: NSR; No evidence of acute myocardial ischemia Course - Vital Signs Last Recorded V/S: Last Vital Signs Temp 98 F 02/20/21 08:00 Pulse 66 02/20/21 08:07 Resp 21 H 02/20/21 08:00 BP 119/93 H 02/20/21 08:07 Pulse Ox 95 02/20/21 08:00 - Orders/Labs/Meds Orders: Medication Orders Acetaminophen (Acetaminophen 500 Mg Tab) 500 mg PO Q4H PRN PRN Reason: Pain/Fever Last Admin: 02/19/21 21:44 Dose: 500 mg Documented by: Admin: 02/19/21 08:48 Dose: 500 mg Documented by: Admin: 02/18/21 15:31 Dose: 500 mg Documented by: Admin: 02/18/21 02:27 Dose: 500 mg Documented by: HORACE Aspirin (Aspirin 81 Mg Tab.Ec) 81 mg PO DAILY [facility] Last Admin: 02/20/21 08:07 Dose: 81 mg Documented by: Admin: 02/19/21 08:47 Dose: 81 mg Documented by: Admin: 02/18/21 09:25 Dose: 81 mg Documented by: Admin: 02/17/21 09:40 Dose: 81 mg Documented by: Admin: 02/17/21 08:43 Dose: 81 mg Documented by: Admin: 02/16/21 22:59 Dose: 81 mg Documented by: VARIASH Carvedilol (Carvedilol 3.125 Mg Tab) 3.125 mg PO BIDMEALS [facility] Last Admin: 02/20/21 08:07 Dose: 3.125 mg Documented by: Admin: 02/19/21 17:50 Dose: 3.125 mg Documented by: GABRIEL Clopidogrel Bisulfate (Clopidogrel 75 Mg Tab) 75 mg PO DAILY [facility] Last Admin: 02/20/21 08:07 Dose: 75 mg Documented by: Admin: 02/19/21 08:47 Dose: 75 mg Documented by: Admin: 02/18/21 09:25 Dose: 75 mg Documented by: Admin: 02/17/21 09:41 Dose: 75 mg Documented by: Admin: 02/17/21 08:43 Dose: 75 mg Documented by: JOHNSON Dextrose/Water (50% Dextrose In Water 50 Ml Syringe) 25 ml IVPUSH Q15M PRN PRN Reason: Hypoglycemia Last Admin: 02/20/21 07:47 Dose: 25 ml Documented by: MADONNA Ezetimibe (Ezetimibe 10 Mg Tab) 10 mg PO BEDTIME [facility] Last Admin: 02/19/21 21:44 Dose: 10 mg Documented by: JEOVANY Glucagon (Glucagon,Human Recombinant 1 Mg Vial) 1 mg IM Q15M PRN PRN Reason: Hypoglycemia Levofloxacin/Dextrose 750 mg/ (Premix) 150 mls @ 100 mls/hr IV Q24H [facility] Stop: 02/21/21 11:01 Last Infusion: 02/19/21 13:06 Dose: 100 mls/hr Documented by: Admin: 02/19/21 11:33 Dose: 100 mls/hr Documented by: EAMON Insulin Glargine (Insulin Glarg,Human.Rec.Analog 100 Unit/Ml) 40 unit SUBCUT BEDTIME [facility] Last Admin: 02/19/21 21:47 Dose: 40 units Documented by: JEOVANY Insulin Human Lispro (Insulin Lispro 100 Units/Ml 3 Ml Vial) 0 unit SUBCUT WITHMEALSANDBED [facility]; Protocol Last Admin: 02/20/21 08:20 Dose: Not Given Documented by: Admin: 02/19/21 21:46 Dose: 2 units Documented by: Admin: 02/19/21 17:49 Dose: 6 units Documented by: Admin: 02/19/21 12:31 Dose: Not Given Documented by: GABRIEL Lisinopril (Lisinopril 10 Mg Tab) 10 mg PO DAILY [facility] Last Admin: 02/20/21 08:07 Dose: 10 mg Documented by: MADONNA Melatonin (Melatonin 3 Mg Tab) 6 mg PO BEDTIME PRN PRN Reason: Sleep Last Admin: 02/19/21 21:43 Dose: 6 mg Documented by: JEOVANY Nystatin (Nystatin Topical Powder 30 Gm Bottle) 0 gm TOP Q8HR [facility] Last Admin: 02/20/21 05:29 Dose: 1 applic Documented by: Admin: 02/19/21 22:05 Dose: 1 applic Documented by: Admin: 02/19/21 14:27 Dose: Not Given Documented by: Admin: 02/19/21 12:37 Dose: 1 applic Documented by: GABRIEL Labs: Laboratory Tests 02/16/21 02/16/21 02/16/21 Range/Units 13:32 13:53 14:03 WBC (5.0-10.0) 10^3/uL RBC (4.2-5.4) 10^6/uL Hgb (12.0-16.0) g/dL Hct (37.0-47.0) % MCV (80-100) fL MCH (27.0-34.0) pg MCHC (33.0-35.0) g/dL Plt Count (150-450) 10^3/uL Neut % (Auto) (42.2-75.2) % Lymph % (Auto) (20.5-50.1) % [place] % (Auto) (2-8) % Eos % (Auto) (1.0-3.0) % Baso % (Auto) (0.0-1.0) % Add Manual Diff Neutrophils % (Manual) (42-75) % Lymphocytes % (Manual) (20-50) % Monocytes % (Manual) (2-8) % Metamyelocytes % Polychromasia Hypochromasia Sodium (136-145) mmol/L Potassium (3.5-5.1) mmol/L Chloride (98-107) mmol/L Carbon Dioxide (21-32) mmol/L Anion Gap (7-13) mEq/L BUN (7-18) mg/dL Creatinine (0.55-1.02) mg/dL Est Cr Clr Drug Dosing Estimated GFR (MDRD) BUN/Creatinine Ratio (No establ ref range) Glucose (70-99) mg/dL POC Glucose > 600 H* (70-99) mg/dL Lactic Acid (0.4-2.0) mmol/L Calcium (8.5-10.1) mg/dL Magnesium (1.8-2.4) mg/dL Total Bilirubin (0.2-1.0) mg/dL AST (15-37) U/L ALT (14-59) U/L Alkaline Phosphatase (46-116) U/L Creatine Kinase (16-191) U/L Troponin I High Sens (<=51) pg/mL C-Reactive Protein (0.0-0.9) mg/dL B-Natriuretic Peptide (0-100) pg/ml Total Protein (6.4-8.2) g/dL Albumin (3.4-5.0) g/dL Globulin Albumin/Globulin Ratio Urine Color Dark yellow (YELLOW) Urine Appearance Turbid (CLEAR) Urine pH 5.0 (5.0-9.0) Ur Specific [place] >= 1.030 (1.005-1.030) Urine Protein >=300 H (NEGATIVE) Urine Glucose (UA) 500 H (NEGATIVE) Urine Ketones Trace H (NEGATIVE) Urine Occult Blood Small H (NEGATIVE) Urine Nitrite Negative (NEGATIVE) Urine Bilirubin Moderate H (NEGATIVE) Urine Urobilinogen 1.0 (0.2-1.0) mg/dL Ur Leukocyte Esterase Trace H (NEGATIVE) Urine RBC 0-5 (0-5) /HPF Urine WBC 0-5 (0-5/HPF) /HPF Ur Epithelial Cells Many H (NOT SEEN) /HPF Amorphous Sediment Many H (NOT SEEN) /HPF Urine Bacteria See note (0-FEW/HPF) /HPF Urine Other See note Ketones SARS-CoV-2 RNA (AYUSH) Negative (NEGATIVE) 02/16/21 02/16/21 02/16/21 Range/Units 14:19 14:19 14:19 WBC 10.7 H (5.0-10.0) 10^3/uL RBC 4.64 (4.2-5.4) 10^6/uL Hgb 10.7 L (12.0-16.0) g/dL Hct 37.8 (37.0-47.0) % MCV 81.5 D (80-100) fL MCH 23.1 L (27.0-34.0) pg MCHC 28.3 L (33.0-35.0) g/dL Plt Count 330 (150-450) 10^3/uL Neut % (Auto) 86.3 H (42.2-75.2) % Lymph % (Auto) 5.0 L (20.5-50.1) % [place] % (Auto) 8.6 H (2-8) % Eos % (Auto) 0.0 L (1.0-3.0) % Baso % (Auto) 0.1 (0.0-1.0) % Add Manual Diff Yes Neutrophils % (Manual) 90 H (42-75) % Lymphocytes % (Manual) 4 L (20-50) % Monocytes % (Manual) 3 (2-8) % Metamyelocytes % 3 Polychromasia 1+ slight Hypochromasia 1+ slight Sodium 133 L (136-145) mmol/L Potassium 5.0 D (3.5-5.1) mmol/L Chloride 97 L (98-107) mmol/L Carbon Dioxide < 5 L* D (21-32) mmol/L Anion Gap 36.29736 H (7-13) mEq/L BUN 33 H (7-18) mg/dL Creatinine 1.81 H (0.55-1.02) mg/dL Est Cr Clr Drug Dosing TNP Estimated GFR (MDRD) 28 BUN/Creatinine Ratio 18.2 (No establ ref range) Glucose 718 H* (70-99) mg/dL POC Glucose (70-99) mg/dL Lactic Acid (0.4-2.0) mmol/L Calcium 8.5 (8.5-10.1) mg/dL Magnesium 2.6 H (1.8-2.4) mg/dL Total Bilirubin 0.6 (0.2-1.0) mg/dL AST 13 L (15-37) U/L ALT 20 (14-59) U/L Alkaline Phosphatase 210 H (46-116) U/L Creatine Kinase 220 H (16-191) U/L Troponin I High Sens 74 H* (<=51) pg/mL C-Reactive Protein 2.9 H (0.0-0.9) mg/dL B-Natriuretic Peptide (0-100) pg/ml Total Protein 6.7 (6.4-8.2) g/dL Albumin 2.9 L (3.4-5.0) g/dL Globulin 3.8 Albumin/Globulin Ratio 0.76 Urine Color (YELLOW) Urine Appearance (CLEAR) Urine pH (5.0-9.0) Ur Specific [place] (1.005-1.030) Urine Protein (NEGATIVE) Urine Glucose (UA) (NEGATIVE) Urine Ketones (NEGATIVE) Urine Occult Blood (NEGATIVE) Urine Nitrite (NEGATIVE) Urine Bilirubin (NEGATIVE) Urine Urobilinogen (0.2-1.0) mg/dL Ur Leukocyte Esterase (NEGATIVE) Urine RBC (0-5) /HPF Urine WBC (0-5/HPF) /HPF Ur Epithelial Cells (NOT SEEN) /HPF Amorphous Sediment (NOT SEEN) /HPF Urine Bacteria (0-FEW/HPF) /HPF Urine Other Ketones Moderate-40 mg/dl SARS-CoV-2 RNA (AYUSH) (NEGATIVE) 02/16/21 02/16/21 02/16/21 Range/Units 14:19 14:19 15:40 WBC (5.0-10.0) 10^3/uL RBC (4.2-5.4) 10^6/uL Hgb (12.0-16.0) g/dL Hct (37.0-47.0) % MCV (80-100) fL MCH (27.0-34.0) pg MCHC (33.0-35.0) g/dL Plt Count (150-450) 10^3/uL Neut % (Auto) (42.2-75.2) % Lymph % (Auto) (20.5-50.1) % [place] % (Auto) (2-8) % Eos % (Auto) (1.0-3.0) % Baso % (Auto) (0.0-1.0) % Add Manual Diff Neutrophils % (Manual) (42-75) % Lymphocytes % (Manual) (20-50) % Monocytes % (Manual) (2-8) % Metamyelocytes % Polychromasia Hypochromasia Sodium (136-145) mmol/L Potassium (3.5-5.1) mmol/L Chloride (98-107) mmol/L Carbon Dioxide (21-32) mmol/L Anion Gap (7-13) mEq/L BUN (7-18) mg/dL Creatinine (0.55-1.02) mg/dL Est Cr Clr Drug Dosing Estimated GFR (MDRD) BUN/Creatinine Ratio (No establ ref range) Glucose (70-99) mg/dL POC Glucose > 600 H* (70-99) mg/dL Lactic Acid 1.3 (0.4-2.0) mmol/L Calcium (8.5-10.1) mg/dL Magnesium (1.8-2.4) mg/dL Total Bilirubin (0.2-1.0) mg/dL AST (15-37) U/L ALT (14-59) U/L Alkaline Phosphatase (46-116) U/L Creatine Kinase (16-191) U/L Troponin I High Sens (<=51) pg/mL C-Reactive Protein (0.0-0.9) mg/dL B-Natriuretic Peptide 2430 H (0-100) pg/ml Total Protein (6.4-8.2) g/dL Albumin (3.4-5.0) g/dL Globulin Albumin/Globulin Ratio Urine Color (YELLOW) Urine Appearance (CLEAR) Urine pH (5.0-9.0) Ur Specific [place] (1.005-1.030) Urine Protein (NEGATIVE) Urine Glucose (UA) (NEGATIVE) Urine Ketones (NEGATIVE) Urine Occult Blood (NEGATIVE) Urine Nitrite (NEGATIVE) Urine Bilirubin (NEGATIVE) Urine Urobilinogen (0.2-1.0) mg/dL Ur Leukocyte Esterase (NEGATIVE) Urine RBC (0-5) /HPF Urine WBC (0-5/HPF) /HPF Ur Epithelial Cells (NOT SEEN) /HPF Amorphous Sediment (NOT SEEN) /HPF Urine Bacteria (0-FEW/HPF) /HPF Urine Other Ketones SARS-CoV-2 RNA (AYUSH) (NEGATIVE) 02/16/ Range/Units 16:10 WBC (5.0-10.0) 10^3/uL RBC (4.2-5.4) 10^6/uL Hgb (12.0-16.0) g/dL Hct (37.0-47.0) % MCV (80-100) fL MCH (27.0-34.0) pg MCHC (33.0-35.0) g/dL Plt Count (150-450) 10^3/uL Neut % (Auto) (42.2-75.2) % Lymph % (Auto) (20.5-50.1) % [place] % (Auto) (2-8) % Eos % (Auto) (1.0-3.0) % Baso % (Auto) (0.0-1.0) % Add Manual Diff Neutrophils % (Manual) (42-75) % Lymphocytes % (Manual) (20-50) % Monocytes % (Manual) (2-8) % Metamyelocytes % Polychromasia Hypochromasia Sodium (136-145) mmol/L Potassium (3.5-5.1) mmol/L Chloride (98-107) mmol/L Carbon Dioxide (21-32) mmol/L Anion Gap (7-13) mEq/L BUN (7-18) mg/dL Creatinine (0.55-1.02) mg/dL Est Cr Clr Drug Dosing Estimated GFR (MDRD) BUN/Creatinine Ratio (No establ ref range) Glucose (70-99) mg/dL POC Glucose 596 H* (70-99) mg/dL Lactic Acid (0.4-2.0) mmol/L Calcium (8.5-10.1) mg/dL Magnesium (1.8-2.4) mg/dL Total Bilirubin (0.2-1.0) mg/dL AST (15-37) U/L ALT (14-59) U/L Alkaline Phosphatase (46-116) U/L Creatine Kinase (16-191) U/L Troponin I High Sens (<=51) pg/mL C-Reactive Protein (0.0-0.9) mg/dL B-Natriuretic Peptide (0-100) pg/ml Total Protein (6.4-8.2) g/dL Albumin (3.4-5.0) g/dL Globulin Albumin/Globulin Ratio Urine Color (YELLOW) Urine Appearance (CLEAR) Urine pH (5.0-9.0) Ur Specific [place] (1.005-1.030) Urine Protein (NEGATIVE) Urine Glucose (UA) (NEGATIVE) Urine Ketones (NEGATIVE) Urine Occult Blood (NEGATIVE) Urine Nitrite (NEGATIVE) Urine Bilirubin (NEGATIVE) Urine Urobilinogen (0.2-1.0) mg/dL Ur Leukocyte Esterase (NEGATIVE) Urine RBC (0-5) /HPF Urine WBC (0-5/HPF) /HPF Ur Epithelial Cells (NOT SEEN) /HPF Amorphous Sediment (NOT SEEN) /HPF Urine Bacteria (0-FEW/HPF) /HPF Urine Other Ketones SARS-CoV-2 RNA (AYUSH) (NEGATIVE) Meds: Medications Generic Name Dose Route Start Last Admin Trade Name Freq PRN Reason Stop Dose Admin Acetaminophen 500 mg 02/18/21 02:17 02/19/21 21:44 Acetaminophen 500 Mg Tab PO 500 mg Q4H PRN Administration Pain/Fever Aspirin 81 mg 02/16/21 18:15 02/20/21 08:07 Aspirin 81 Mg Tab.Ec PO 81 mg DAILY ERIN Administration Carvedilol 3.125 mg 02/19/21 18:00 02/20/21 08:07 Carvedilol 3.125 Mg Tab PO 3.125 mg BIDMEALS ERIN Administration Clopidogrel Bisulfate 75 mg 02/17/21 09:00 02/20/21 08:07 Clopidogrel 75 Mg Tab PO 75 mg DAILY ERNI Administration Dextrose/Water 25 ml 02/20/21 07:37 02/20/21 07:47 50% Dextrose In Water 50 Ml Syringe IVPUSH 25 ml Q15M PRN Administration Hypoglycemia Ezetimibe 10 mg 02/19/21 21:00 02/19/21 21:44 Ezetimibe 10 Mg Tab PO 10 mg BEDTIME ERIN Administration Glucagon 1 mg 02/16/21 14:21 Glucagon,Human Recombinant 1 Mg Vial IM Q15M PRN Hypoglycemia Levofloxacin/Dextrose 750 mg/ 150 mls @ 100 mls/hr 02/19/21 11:00 02/19/21 13:06 Premix IV 02/21/21 11:01 Infused Q24H ERIN Infusion Insulin Glargine 40 unit 02/19/21 21:00 02/19/21 21:47 Insulin Glarg,Human.Rec.Analog 100 Unit/Ml SUBCUT 40 units BEDTIME ERIN Administration Insulin Human Lispro 0 unit 02/19/21 12:00 02/20/21 08:20 Insulin Lispro 100 Units/Ml 3 Ml Vial SUBCUT Not Given WITHMEALSANDBED [facility] Protocol Lisinopril 10 mg 02/20/21 09:00 02/20/21 08:07 Lisinopril 10 Mg Tab PO 10 mg DAILY ERIN Administration Melatonin 6 mg 02/19/21 17:59 02/19/21 21:43 Melatonin 3 Mg Tab PO 6 mg BEDTIME PRN Administration Sleep Nystatin 0 gm 02/19/21 14:00 02/20/21 05:29 Nystatin Topical Powder 30 Gm Bottle TOP 1 applic Q8HR ERIN Administration Discontinued Medications Generic Name Dose Route Start Last Admin Trade Name Freq PRN Reason Stop Dose Admin Carvedilol 6.25 mg 02/19/21 12:27 02/19/21 12:36 Carvedilol 6.25 Mg Tab PO 02/19/21 12:28 Not Given ONETIME ONE Clopidogrel Bisulfate 225 mg 02/17/21 11:10 02/17/21 11:24 Clopidogrel 75 Mg Tab PO 02/17/21 11:11 225 mg ONETIME STA Administration Dextrose/Water 50 ml 02/16/21 14:21 50% Dextrose In Water 50 Ml Syringe IVPUSH Q15M PRN Hypoglycemia Dextrose/Water 50 ml 02/16/21 17:10 50% Dextrose In Water 50 Ml Syringe IVPUSH Q15M PRN Hypoglycemia Dextrose/Water 50 ml 02/19/21 09:22 50% Dextrose In Water 50 Ml Syringe IVPUSH Q15M PRN Hypoglycemia Dextrose/Water Confirm 02/20/21 07:40 02/20/21 08:14 50% Dextrose In Water 50 Ml Syringe Administered 02/20/21 07:41 Not Given Dose 50 ml .ROUTE .STK-MED ONE Furosemide 20 mg 02/16/21 15:50 02/16/21 15:54 Furosemide 20 Mg/2 Ml Vial IVPUSH 02/16/21 15:51 20 mg ONETIME ONE Administration Glucagon 1 mg 02/16/21 17:10 Glucagon,Human Recombinant 1 Mg Vial IM Q15M PRN Hypoglycemia Heparin Sodium (Porcine) 4,700 units 02/17/21 08:30 02/17/21 08:34 Heparin Sodium 5,000 Units/Ml Vial IV 02/17/21 08:31 4,700 units ONETIME ONE Administration Heparin Sodium (Porcine) 1,000 units 02/17/21 22:55 02/17/21 23:14 Heparin Sodium 5,000 Units/Ml Vial IVPUSH 02/17/21 22:56 1,000 units ONETIME ONE Administration Heparin Sodium (Porcine) 2,000 units 02/18/21 09:17 02/18/21 09:35 Heparin Sodium 5,000 Units/Ml Vial IVPUSH 02/18/21 09:18 2,000 units .BOLUS ONE Administration Heparin Sodium (Porcine) 2,000 units 02/18/21 22:42 02/18/21 22:55 Heparin Sodium 5,000 Units/Ml Vial IVPUSH 02/18/21 22:43 2,000 units ONETIME ONE Administration Sodium Chloride 1,000 mls @ 999 mls/hr 02/16/21 14:00 02/16/21 17:42 Normal Saline IV 02/16/21 15:00 999 mls/hr .BOLUS ONE Administration Albumin Human 250 mls @ 250 mls/hr 02/16/21 14:30 02/16/21 15:01 Buminate 5% IV 250 mls/hr ASDIRECTED ERIN Administration Sodium Bicarbonate 100 meq/ 1,100 mls @ 100 mls/hr 02/16/21 15:03 02/16/21 15:18 Dextrose/Water IV 02/17/21 02:02 100 mls/hr ONETIME ONE Administration Insulin Regular in 0.9 % NACL 100 unit in 100 mls @ 7.82 mls/hr 02/16/21 16:15 Myxredlin In Ns 100 Unit/100 Ml IV TITRATE ERIN Protocol 0.1 UNITS/KG/HR Sodium Bicarbonate 100 meq/ 1,100 mls @ 999 mls/hr 02/16/21 17:21 02/16/21 22:50 Dextrose/Water IV 02/16/21 18:27 Not Given ONETIME ONE Sodium Chloride 1,000 mls @ 250 mls/hr 02/16/21 17:30 Normal Saline IV ASDIRECTED ERIN Insulin Regular in 0.9 % NACL 100 unit in 100 mls @ 7.82 mls/hr 02/16/21 17:45 02/17/21 02:36 Myxredlin In Ns 100 Unit/100 Ml IV 0 units/kg/hr TITRATE ERIN 0 mls/hr Titration Protocol 0.1 UNITS/KG/HR Levofloxacin/Dextrose 500 mg/ 100 mls @ 100 mls/hr 02/16/21 18:00 02/16/21 20:54 Premix IV 100 mls/hr Q24H ERIN Administration Sodium Chloride 1,000 mls @ 1,000 mls/hr 02/16/21 19:00 02/16/21 19:02 Normal Saline IV 02/16/21 19:59 1,000 mls/hr ASDIRECTED ERIN Administration Potassium Chloride/Sodium Chloride 1,000 mls @ 250 mls/hr 02/16/21 20:45 02/17/21 01:48 Normal Saline With 40 Meq Kcl IV 250 mls/hr ASDIRECTED ERIN Administration Sodium Bicarbonate 100 meq/ 1,100 mls @ 150 mls/hr 02/17/21 03:20 02/17/21 07:55 Dextrose/Water IV 02/17/21 10:39 50 mls/hr ONETIME ONE Infusion Heparin Sodium/Sodium Chloride 25,000 units in 500 mls @ 18.768 mls/hr 02/17/21 08:15 02/19/21 03:31 Heparin 25,000 Units In 1/2 Ns 500 Ml IV 22 units/kg/hr TITRATE ERIN 34.408 mls/hr Administration Protocol 12 UNITS/KG/HR Levofloxacin/Dextrose 500 mg/ 100 mls @ 100 mls/hr 02/18/21 18:00 02/18/21 17:21 Premix IV 100 mls/hr Q48H ERIN Administration Lactated Ringer's 1,000 mls @ 125 mls/hr 02/18/21 11:45 02/19/21 05:45 Ringers, Lactated IV 125 mls/hr ASDIRECTED ERIN Administration Potassium Chloride 20 meq/ 100 mls @ 50 mls/hr 02/20/21 07:23 02/20/21 08:00 Premix IV 02/20/21 09:22 50 mls/hr ONETIME ONE Administration Calcium Gluconate 1 gm/ Sodium 110 mls @ 110 mls/hr 02/20/21 07:30 02/20/21 08:14 Chloride IV 02/20/21 08:29 110 mls/hr ONETIME ONE Administration Insulin Glargine 35 unit 02/17/21 04:12 02/17/21 04:28 Insulin Glarg,Human.Rec.Analog 100 Unit/Ml SUBCUT 02/17/21 04:13 35 units ONETIME ONE Administration Insulin Glargine 20 unit 02/19/21 09:22 02/19/21 09:57 Insulin Glarg,Human.Rec.Analog 100 Unit/Ml SUBCUT 02/19/21 09:23 20 units ONETIME ONE Administration Insulin Human Lispro 5 unit 02/17/21 04:14 02/17/21 04:29 Insulin Lispro 100 Units/Ml 3 Ml Vial SUBCUT 02/17/21 04:15 5 units ONETIME ONE Administration Insulin Human Lispro 0 unit 02/17/21 12:00 02/18/21 09:04 Insulin Lispro 100 Units/Ml 3 Ml Vial SUBCUT Not Given WITHMEALSANDBED ERIN Protocol Insulin Human Lispro 14 unit 02/19/21 12:26 02/19/21 12:36 Insulin Lispro 100 Units/Ml 3 Ml Vial SUBCUT 02/19/21 12:27 Not Given ONETIME ONE Insulin Human Lispro 12 unit 02/19/21 12:26 02/19/21 12:41 Insulin Lispro 100 Units/Ml 3 Ml Vial SUBCUT 02/19/21 12:27 12 units ONETIME ONE Administration Insulin Human Regular 5 unit 02/16/21 14:21 02/16/21 14:59 Insulin Regular, Human 100 Units/Ml 3 Ml Vial IV 02/16/21 14:22 5 unit ONETIME ONE Administration Insulin Human Regular 10 unit 02/16/21 17:10 02/16/21 17:19 Insulin Regular, Human 100 Units/Ml 3 Ml Vial IV 02/16/21 17:11 10 units STAT STA Administration Insulin Human Regular 10 unit 02/16/21 18:12 02/16/21 18:14 Insulin Regular, Human 100 Units/Ml 3 Ml Vial IV 02/16/21 18:13 10 units ONETIME ONE Administration Lisinopril 2.5 mg 02/20/21 09:00 Lisinopril 5 Mg Tab PO DAILY ERIN Nitroglycerin 0.4 mg 02/18/21 15:40 02/18/21 15:47 Nitroglycerin 0.4 Mg Tab.Sl SL 02/18/21 15:41 0.4 mg ONETIME ONE Administration Nystatin 0 gm 02/18/21 20:00 02/19/21 03:43 Nystatin Topical Powder 30 Gm Bottle TOP 1 applic Q8H ERIN Administration Potassium Chloride 40 meq 02/17/21 03:19 02/17/21 07:20 Potassium Chloride 10 Meq Tab.Er PO 02/17/21 03:20 Not Given ONETIME ONE Potassium Chloride 40 meq 02/17/21 07:51 02/17/21 08:43 Potassium Chloride 10 Meq Tab.Er PO 02/17/21 07:52 40 meq ONETIME ONE Administration Potassium Chloride 40 meq 02/17/21 17:00 02/17/21 17:41 Potassium Chloride 10% 20 Meq/15 Ml Soln 15 Ml Ud Cup PO 02/17/21 17:01 40 meq ONETIME ONE Administration Sodium Bicarbonate 50 meq 02/16/21 15:03 02/16/21 15:08 Sodium Bicarbonate 8.4% 50 Meq/50 Ml Syringe IVPUSH 02/16/21 15:04 50 meq ONETIME ONE Administration Sodium Bicarbonate 100 meq 02/16/21 17:23 02/16/21 17:49 Sodium Bicarbonate 8.4% 50 Meq/50 Ml Syringe IVPUSH 02/16/21 17:24 100 meq ONETIME ONE Administration Zolpidem Tartrate 5 mg 02/18/21 22:05 02/18/21 22:17 Zolpidem 5 Mg Tab PO 02/18/21 22:06 5 mg ONETIME ONE Administration Zolpidem Tartrate 5 mg 02/20/21 00:17 02/20/21 00:38 Zolpidem 5 Mg Tab PO 02/20/21 00:18 5 mg ONETIME ONE Administration - Radiology Interpretation Free Text/Narrative:: [facility] Final Radiology Report Call: [phone] assistance Online chat: [email or web address] Name: COREEN MAYS Age: 70Years F Date: 02/16/2021 SSN: -- : 1950 Study: CR CHEST 1V FRONTAL Requesting Physician: Merna Figueroa Images: 1 Addl Studies: Provided Clinical History: Tachypnea; Bilateral crackles Contrast: Contrast Medium: Contrast Amount: Contrast Method: CONFIDENTIALITY STATEMENT This report is intended only for use by the referring physician, and only in accordance with law. If you received this in error, call [phone]. Page 1 of 1 PROCEDURE INFORMATION: Exam: XR Chest Exam date and time: 02/16/2021 3:06 PM Age: 70 years old Clinical indication: Shortness of breath; Additional info: Tachypnea; Bilateral crackles TECHNIQUE: Imaging protocol: XR of the chest. Views: 1 view. COMPARISON: CR Chest 1V Frontal 10/09/2020 11:30 PM FINDINGS: Lungs: Bilateral basilar airspace consolidations. Pleural spaces: Right moderate pleural effusion. Left mild pleural effusion. No evidence of pneumothorax. Heart/Mediastinum: Increased vascular pedicle in comparison to the prior exam. Moderate cardiomegaly Bones/joints: Median sternotomy. IMPRESSION: Bibasilar airspace consolidations, pleural effusions and cardiomegaly. Findings compatible with cardiogenic etiology. Cannot exclude concomitant bilateral lower lobe pneumonitis. Thank you for allowing us to participate in the care of your patient. Dictated and Authenticated by: Leticia Cummings MD 02/16/2021 3:25 PM Central Time ([place] & Moo) [facility] Final Radiology Report Call: [phone] assistance Online chat: [email or web address] Name: COREEN MAYS Age: 70Years F Date: 02/16/2021 SSN: -- : 1950 Study: CT HEAD WO CONT Requesting Physician: Merna Figueroa Images: 293 Addl Studies: Provided Clinical History: Altered mental status, left at home alone by caregivers for unknown amount of time Contrast: Without Contrast Medium: Contrast Amount: Contrast Method: Page 1 of 2 PROCEDURE INFORMATION: Exam: CT Head Without Contrast Exam date and time: 02/16/2021 2:50 PM Age: 70 years old Clinical indication: Altered mental status/memory loss; Age related cognitive decline; Additional info: Altered mental status, left at home alone by caregivers for unknown amount of time TECHNIQUE: Imaging protocol: Computed tomography of the head without contrast. Radiation optimization: All CT scans at this facility use at least one of these dose optimization techniques: automated exposure control; mA and/or kV adjustment per patient size (includes targeted exams where dose is matched to clinical indication); or iterative reconstruction. COMPARISON: No relevant prior studies available. FINDINGS: Brain: Imaging degradation secondary to patient motion. Moderate cerebral volume loss with subcortical and periventricular hypodensities. Bilateral posterior occipital hypodensities may reflect encephalomalacia secondary to chronic infarcts. Small bilateral chronic thalamic lacunar infarcts. No acute hemorrhage. No midline shift. No mass effect. No intra-axial or extra- axial fluid collections. Preservation of basal cisterns. Cerebral ventricles: No ventriculomegaly. Paranasal sinuses: Visualized sinuses are unremarkable. No fluid levels. Mastoid air cells: Visualized mastoid air cells are well aerated. Bones/joints: Unremarkable. No acute fracture. Soft tissues: Unremarkable. IMPRESSION: 1. Imaging degradation secondary to patient motion. Posterior occipital probable chronic infarcts. 2. Bilateral thalamic lacunar infarcts. 3. Age-related atrophy and chronic white matter ischemic changes, with no evidence of an acute intracranial abnormality. Patient cooperation may preclude MRI brain but if strong clinical concern for acute intracranial abnormality, then an MRI examination of the brain should be considered for further evaluation. However, if there are no deficits on neurological exam, then follow-up imaging could be considered on a nonemergent outpatient basis as clinically warranted. Thank you for allowing us to participate in the care of your patient. Dictated and Authenticated by: Leticia Cummings MD 02/16/2021 3:21 PM Central Time ([place] & Moo) - Re-Assessments/Exams Free Text/Narrative Re-Assessment/Exam: 02/16/[address] head obtained. Insulin 5u administered. NS 1L bolus initiated while labs pending. COVID sent. Albumin 5% 100cc administered. Bicarb 50mL amp + gtt at 100mL/hr initiated. Insulin gtt at 5u/hr initiated. Lasix 20mg IVP administered. COVID negative. Case discussed with [facility], [facility], [facility], [facility], [facility], and [facility], all currently at capacity for ICU or step-down, will not accept patient to [facility]. Case discussed with Dr. Gay who kindly accepted patient to this facility. Findings of examination, lab work, and imaging reviewed with patient's daughter. Departure - Departure Time of Disposition: 16:40 Disposition: Admitted As Inpatient 67 Condition: Serious Clinical Impression: Elevated troponin DKA (diabetic ketoacidosis) Qualifiers: Diabetes mellitus type: type 2 Diabetes mellitus complication detail: without coma Qualified Code(s): E11.10 - Type 2 diabetes mellitus with ketoacidosis without coma CHF exacerbation Qualifiers: Heart failure type: unspecified Qualified Code(s): I50.9 - Heart failure, unspecified Congestive heart failure Qualifiers: Heart failure type: unspecified Heart failure chronicity: acute on chronic Qualified Code(s): I50.9 - Heart failure, unspecified Pressure ulcer Qualifiers: Pressure injury location: buttock Pressure injury stage: stage 2 Laterality: right Qualified Code(s): L89.312 - Pressure ulcer of right buttock, stage 2 - Discharge Information
[2021-02-16] MEDS ORDERED: Albumin 5% 250 ML IV SCH (14:30)
[2021-02-16 14:53] LABS: CHLORIDE,CL 97 mmol/L (98-107); SODIUM,NA 133 mmol/L (136-145)
[2021-02-16 14:57] LABS: ANION GAP 36.00001 mEq/L (7-13)
[2021-02-16] MEDS ORDERED: Sodium Bicarbonate 100 MEQ in Dextrose 5% in Water 1,000 ML IV ONE ×4 (15:03→17:21)
[2021-02-16] MEDS ORDERED: Sodium Bicarbonate 8.4% 50 MEQ/50 ML Syringe IVPUSH ONE ×2 (15:03→17:23)
--- NOTE | 2021-02-16 15:21 | CT ---
PROCEDURE INFORMATION: Exam: CT Head Without Contrast Exam date and time: 02/16/2021 2:50 PM Age: 70 years old Clinical indication: Altered mental status/memory loss; Age related cognitive decline; Additional info: Altered mental status, left at home alone by caregivers for unknown amount of time TECHNIQUE: Imaging protocol: Computed tomography of the head without contrast. Radiation optimization: All CT scans at this facility use at least one of these dose optimization techniques: automated exposure control; mA and/or kV adjustment per patient size (includes targeted exams where dose is matched to clinical indication); or iterative reconstruction. COMPARISON: No relevant prior studies available. FINDINGS: Brain: Imaging degradation secondary to patient motion. Moderate cerebral volume loss with subcortical and periventricular hypodensities. Bilateral posterior occipital hypodensities may reflect encephalomalacia secondary to chronic infarcts. Small bilateral chronic thalamic lacunar infarcts. No acute hemorrhage. No midline shift. No mass effect. No intra-axial or extra-axial fluid collections. Preservation of basal cisterns. Cerebral ventricles: No ventriculomegaly. Paranasal sinuses: Visualized sinuses are unremarkable. No fluid levels. Mastoid air cells: Visualized mastoid air cells are well aerated. Bones/joints: Unremarkable. No acute fracture. Soft tissues: Unremarkable. IMPRESSION: 1. Imaging degradation secondary to patient motion. Posterior occipital probable chronic infarcts. 2. Bilateral thalamic lacunar infarcts. 3. Age-related atrophy and chronic white matter ischemic changes, with no evidence of an acute intracranial abnormality. Patient cooperation may preclude MRI brain but if strong clinical concern for acute intracranial abnormality, then an MRI examination of the brain should be considered for further evaluation. However, if there are no deficits on neurological exam, then follow-up imaging could be considered on a nonemergent outpatient basis as clinically warranted.
--- NOTE | 2021-02-16 15:25 | CR ---
PROCEDURE INFORMATION: Exam: XR Chest Exam date and time: 02/16/2021 3:06 PM Age: 70 years old Clinical indication: Shortness of breath; Additional info: Tachypnea; Bilateral crackles TECHNIQUE: Imaging protocol: XR of the chest. Views: 1 view. COMPARISON: CR Chest 1V Frontal 10/09/2020 11:30 PM FINDINGS: Lungs: Bilateral basilar airspace consolidations. Pleural spaces: Right moderate pleural effusion. Left mild pleural effusion. No evidence of pneumothorax. Heart/Mediastinum: Increased vascular pedicle in comparison to the prior exam. Moderate cardiomegaly Bones/joints: Median sternotomy. IMPRESSION: Bibasilar airspace consolidations, pleural effusions and cardiomegaly. Findings compatible with cardiogenic etiology. Cannot exclude concomitant bilateral lower lobe pneumonitis.
[2021-02-16] MEDS ORDERED: Furosemide 20 MG/2 ML VIAL IVPUSH ONE (15:50)
[2021-02-16] MEDS ORDERED: Insulin Regular, Human 100 Units/ML 3 ML Vial IV STA (17:10)
[2021-02-16] MEDS ORDERED: Sodium Chloride 0.9% 1,000 ML IV SCH ×2 (17:30→19:00)
--- NOTE | 2021-02-16 17:58 | PCM.HP ---
H&P History of Present Illness - General Date of Service: 02/16/21 Admit Problem/Dx: Admission Diagnosis/Problem Admission Diagnosis/Problem Diabetic ketoacidosis without coma Source of Information: Old Records, Provider (er), Other (I CALLED HER DAUGHTER MS. CODY Twice: no answer) History Limitations: Reports: Altered Mental Status - History of Present Illness Initial Comments - Free Text/Narative: Coreen is a 70 y/o female who presents to the ED via EMS and found to be lethargic with AMS; GCS 12 The patient is unable to state why she presents to the ED. iN ER pt was found with DKA, BS: 780, BP 100/50, elevated CK and Mildly elevated Trop: 74. CXR : lower lobe congestion/ atelectasis VS infiltrates. CT limited by motion artifact but possible chronic infarcts. Pt was given Bicarbonate , insulin and Albumin and Lasix in ER. Pt is unable to provide any history. - Related Data Allergies/Adverse Reactions: Allergies Allergy/AdvReac Type Severity Reaction Status Date / Time atorvastatin Allergy Rash Verified 01/13/21 13:16 Penicillins Allergy Rash Verified 01/13/21 13:16 simvastatin Allergy Rash Verified 01/13/21 13:16 Home Medications: Home Meds Furosemide 10 mg PO DAILY 05/25/15 [History] Lisinopril 10 mg PO DAILY 05/25/15 [History] Clopidogrel Bisulfate [Plavix] 75 mg PO DAILY 09/12/20 [History] Insulin Aspart [NovoLOG] 4 - 16 units SUBCUT TIDMEALS 09/13/20 [History] Insulin Detemir [Levemir Flextouch] 35 units SUBCUT DAILY 09/13/20 [History] Metoprolol Tartrate 25 mg PO DAILY 09/13/20 [History] Omeprazole 20 mg PO ACBREAKFAST 09/13/20 [History] Ascorbic Acid [Vitamin C] 500 mg PO DAILY 30 Days #30 tablet 10/10/20 [Rx] Aspirin [Aspirin EC] 81 mg PO DAILY 10/10/20 [History] Nitroglycerin [Nitrostat] 0.4 mg SL ASDIRECTED PRN 10/10/20 [History] Past Medical History HEENT History: Reports: None Cardiovascular History: Reports: Heart Failure, Hypertension, NM, Other (See Below) (CHF) Respiratory History: Reports: COPD Gastrointestinal History: Reports: Cholelithiasis Genitourinary History: Reports: Urinary Incontinence 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 femeoral bypass: unable to verify) HEENT Surgical History: Reports: None Cardiovascular Surgical History: Reports: Coronary Artery Bypass GI Surgical History: Reports: Appendectomy, Cholecystectomy, Hernia, Inguinal Female Surgical History: Reports: Section, Hysterectomy Endocrine Surgical History: Reports: None Neurological Surgical History: Reports: None Social & Family History - Family History Family Medical History: No Pertinent Family History - Caffeine Use Caffeine Use: Reports: Coffee - Living Situation & Occupation Living situation: Reports: Alone Occupation: Retired H&P Review of Systems - Review of Systems: Review Of Systems: Unable To Obtain Reason Not Obtained: altered mental status Exam - Exam Exam: See Below - Vital Signs Vital Signs: Last Vital Signs Temp 97.0 F 02/16/21 14:42 Pulse 74 02/16/21 14:42 Resp 28 H 02/16/21 14:42 BP 98/79 02/16/21 14:42 Pulse Ox 96 02/16/21 14:42 Weight: 172 lb 6.424 oz - Exam Quality Assessment: Supplemental Oxygen General: Moderate Distress, Lethargic HEENT: Conjunctiva Clear Lungs: Clear to Auscultation. No: Normal Respiratory Effort Cardiovascular: Regular Rate, Regular Rhythm GI/Abdominal Exam: Soft, Non-Tender Back Exam: Normal Inspection Extremities: Pedal Edema Skin: Warm, Dry Neuro Extensive - Mental Status: Opens Eyes to Commands, Other (moving all ext). No: Alert, Oriented x3, Normal Cognition Neuro Extensive - Motor, Sensory, Reflexes: Other (moving all ext) Psychiatric: Other. No: Alert - Patient Data Lab Results Last 24 hrs: Laboratory Results - last 24 hr 02/16/21 02/16/21 02/16/21 Range/Units 13:32 13:53 14:03 WBC (5.0-10.0) 10^3/uL RBC (4.2-5.4) 10^6/uL Hgb (12.0-16.0) g/dL Hct (37.0-47.0) % MCV (80-100) fL MCH (27.0-34.0) pg MCHC (33.0-35.0) g/dL Plt Count (150-450) 10^3/uL Neut % (Auto) (42.2-75.2) % Lymph % (Auto) (20.5-50.1) % Grant % (Auto) (2-8) % Eos % (Auto) (1.0-3.0) % Baso % (Auto) (0.0-1.0) % Add Manual Diff Neutrophils % (Manual) (42-75) % Lymphocytes % (Manual) (20-50) % Monocytes % (Manual) (2-8) % Metamyelocytes % Polychromasia Hypochromasia Sodium (136-145) mmol/L Potassium (3.5-5.1) mmol/L Chloride (98-107) mmol/L Carbon Dioxide (21-32) mmol/L Anion Gap (7-13) mEq/L BUN (7-18) mg/dL Creatinine (0.55-1.02) mg/dL Est Cr Clr Drug Dosing Estimated GFR (MDRD) BUN/Creatinine Ratio (No establ ref range) Glucose (70-99) mg/dL POC Glucose > 600 H* (70-99) mg/dL Lactic Acid (0.4-2.0) mmol/L Calcium (8.5-10.1) mg/dL Magnesium (1.8-2.4) mg/dL Total Bilirubin (0.2-1.0) mg/dL AST (15-37) U/L ALT (14-59) U/L Alkaline Phosphatase (46-116) U/L Creatine Kinase (16-191) U/L Troponin I High Sens (<=51) pg/mL C-Reactive Protein (0.0-0.9) mg/dL B-Natriuretic Peptide (0-100) pg/ml Total Protein (6.4-8.2) g/dL Albumin (3.4-5.0) g/dL Globulin Albumin/Globulin Ratio Urine Color Dark yellow (YELLOW) Urine Appearance Turbid (CLEAR) Urine pH 5.0 (5.0-9.0) Ur Specific Ceylon >= 1.030 (1.005-1.030) Urine Protein >=300 H (NEGATIVE) Urine Glucose (UA) 500 H (NEGATIVE) Urine Ketones Trace H (NEGATIVE) Urine Occult Blood Small H (NEGATIVE) Urine Nitrite Negative (NEGATIVE) Urine Bilirubin Moderate H (NEGATIVE) Urine Urobilinogen 1.0 (0.2-1.0) mg/dL Ur Leukocyte Esterase Trace H (NEGATIVE) Urine RBC 0-5 (0-5) /HPF Urine WBC 0-5 (0-5/HPF) /HPF Ur Epithelial Cells Many H (NOT SEEN) /HPF Amorphous Sediment Many H (NOT SEEN) /HPF Urine Bacteria See note (0-FEW/HPF) /HPF Urine Other See note Ketones SARS-CoV-2 RNA (AYUSH) Negative (NEGATIVE) 02/16/21 02/16/21 02/16/21 Range/Units 14:19 14:19 14:19 WBC 10.7 H (5.0-10.0) 10^3/uL RBC 4.64 (4.2-5.4) 10^6/uL Hgb 10.7 L (12.0-16.0) g/dL Hct 37.8 (37.0-47.0) % MCV 81.5 D (80-100) fL MCH 23.1 L (27.0-34.0) pg MCHC 28.3 L (33.0-35.0) g/dL Plt Count 330 (150-450) 10^3/uL Neut % (Auto) 86.3 H (42.2-75.2) % Lymph % (Auto) 5.0 L (20.5-50.1) % Grant % (Auto) 8.6 H (2-8) % Eos % (Auto) 0.0 L (1.0-3.0) % Baso % (Auto) 0.1 (0.0-1.0) % Add Manual Diff Yes Neutrophils % (Manual) 90 H (42-75) % Lymphocytes % (Manual) 4 L (20-50) % Monocytes % (Manual) 3 (2-8) % Metamyelocytes % 3 Polychromasia 1+ slight Hypochromasia 1+ slight Sodium 133 L (136-145) mmol/L Potassium 5.0 D (3.5-5.1) mmol/L Chloride 97 L (98-107) mmol/L Carbon Dioxide < 5 L* D (21-32) mmol/L Anion Gap 36.89902 H (7-13) mEq/L BUN 33 H (7-18) mg/dL Creatinine 1.81 H (0.55-1.02) mg/dL Est Cr Clr Drug Dosing TNP Estimated GFR (MDRD) 28 BUN/Creatinine Ratio 18.2 (No establ ref range) Glucose 718 H* (70-99) mg/dL POC Glucose (70-99) mg/dL Lactic Acid (0.4-2.0) mmol/L Calcium 8.5 (8.5-10.1) mg/dL Magnesium 2.6 H (1.8-2.4) mg/dL Total Bilirubin 0.6 (0.2-1.0) mg/dL AST 13 L (15-37) U/L ALT 20 (14-59) U/L Alkaline Phosphatase 210 H (46-116) U/L Creatine Kinase 220 H (16-191) U/L Troponin I High Sens 74 H* (<=51) pg/mL C-Reactive Protein 2.9 H (0.0-0.9) mg/dL B-Natriuretic Peptide (0-100) pg/ml Total Protein 6.7 (6.4-8.2) g/dL Albumin 2.9 L (3.4-5.0) g/dL Globulin 3.8 Albumin/Globulin Ratio 0.76 Urine Color (YELLOW) Urine Appearance (CLEAR) Urine pH (5.0-9.0) Ur Specific Ceylon (1.005-1.030) Urine Protein (NEGATIVE) Urine Glucose (UA) (NEGATIVE) Urine Ketones (NEGATIVE) Urine Occult Blood (NEGATIVE) Urine Nitrite (NEGATIVE) Urine Bilirubin (NEGATIVE) Urine Urobilinogen (0.2-1.0) mg/dL Ur Leukocyte Esterase (NEGATIVE) Urine RBC (0-5) /HPF Urine WBC (0-5/HPF) /HPF Ur Epithelial Cells (NOT SEEN) /HPF Amorphous Sediment (NOT SEEN) /HPF Urine Bacteria (0-FEW/HPF) /HPF Urine Other Ketones Moderate-40 mg/dl SARS-CoV-2 RNA (AYUSH) (NEGATIVE) 02/16/21 02/16/21 02/16/21 Range/Units 14:19 14:19 15:40 WBC (5.0-10.0) 10^3/uL RBC (4.2-5.4) 10^6/uL Hgb (12.0-16.0) g/dL Hct (37.0-47.0) % MCV (80-100) fL MCH (27.0-34.0) pg MCHC (33.0-35.0) g/dL Plt Count (150-450) 10^3/uL Neut % (Auto) (42.2-75.2) % Lymph % (Auto) (20.5-50.1) % Grant % (Auto) (2-8) % Eos % (Auto) (1.0-3.0) % Baso % (Auto) (0.0-1.0) % Add Manual Diff Neutrophils % (Manual) (42-75) % Lymphocytes % (Manual) (20-50) % Monocytes % (Manual) (2-8) % Metamyelocytes % Polychromasia Hypochromasia Sodium (136-145) mmol/L Potassium (3.5-5.1) mmol/L Chloride (98-107) mmol/L Carbon Dioxide (21-32) mmol/L Anion Gap (7-13) mEq/L BUN (7-18) mg/dL Creatinine (0.55-1.02) mg/dL Est Cr Clr Drug Dosing Estimated GFR (MDRD) BUN/Creatinine Ratio (No establ ref range) Glucose (70-99) mg/dL POC Glucose > 600 H* (70-99) mg/dL Lactic Acid 1.3 (0.4-2.0) mmol/L Calcium (8.5-10.1) mg/dL Magnesium (1.8-2.4) mg/dL Total Bilirubin (0.2-1.0) mg/dL AST (15-37) U/L ALT (14-59) U/L Alkaline Phosphatase (46-116) U/L Creatine Kinase (16-191) U/L Troponin I High Sens (<=51) pg/mL C-Reactive Protein (0.0-0.9) mg/dL B-Natriuretic Peptide 2430 H (0-100) pg/ml Total Protein (6.4-8.2) g/dL Albumin (3.4-5.0) g/dL Globulin Albumin/Globulin Ratio Urine Color (YELLOW) Urine Appearance (CLEAR) Urine pH (5.0-9.0) Ur Specific Ceylon (1.005-1.030) Urine Protein (NEGATIVE) Urine Glucose (UA) (NEGATIVE) Urine Ketones (NEGATIVE) Urine Occult Blood (NEGATIVE) Urine Nitrite (NEGATIVE) Urine Bilirubin (NEGATIVE) Urine Urobilinogen (0.2-1.0) mg/dL Ur Leukocyte Esterase (NEGATIVE) Urine RBC (0-5) /HPF Urine WBC (0-5/HPF) /HPF Ur Epithelial Cells (NOT SEEN) /HPF Amorphous Sediment (NOT SEEN) /HPF Urine Bacteria (0-FEW/HPF) /HPF Urine Other Ketones SARS-CoV-2 RNA (AYUSH) (NEGATIVE) 02/16/21 02/16/21 Range/Units 16:10 16:56 WBC (5.0-10.0) 10^3/uL RBC (4.2-5.4) 10^6/uL Hgb (12.0-16.0) g/dL Hct (37.0-47.0) % MCV (80-100) fL MCH (27.0-34.0) pg MCHC (33.0-35.0) g/dL Plt Count (150-450) 10^3/uL Neut % (Auto) (42.2-75.2) % Lymph % (Auto) (20.5-50.1) % Grant % (Auto) (2-8) % Eos % (Auto) (1.0-3.0) % Baso % (Auto) (0.0-1.0) % Add Manual Diff Neutrophils % (Manual) (42-75) % Lymphocytes % (Manual) (20-50) % Monocytes % (Manual) (2-8) % Metamyelocytes % Polychromasia Hypochromasia Sodium (136-145) mmol/L Potassium (3.5-5.1) mmol/L Chloride (98-107) mmol/L Carbon Dioxide (21-32) mmol/L Anion Gap (7-13) mEq/L BUN (7-18) mg/dL Creatinine (0.55-1.02) mg/dL Est Cr Clr Drug Dosing Estimated GFR (MDRD) BUN/Creatinine Ratio (No establ ref range) Glucose (70-99) mg/dL POC Glucose 596 H* > 600 H* (70-99) mg/dL Lactic Acid (0.4-2.0) mmol/L Calcium (8.5-10.1) mg/dL Magnesium (1.8-2.4) mg/dL Total Bilirubin (0.2-1.0) mg/dL AST (15-37) U/L ALT (14-59) U/L Alkaline Phosphatase (46-116) U/L Creatine Kinase (16-191) U/L Troponin I High Sens (<=51) pg/mL C-Reactive Protein (0.0-0.9) mg/dL B-Natriuretic Peptide (0-100) pg/ml Total Protein (6.4-8.2) g/dL Albumin (3.4-5.0) g/dL Globulin Albumin/Globulin Ratio Urine Color (YELLOW) Urine Appearance (CLEAR) Urine pH (5.0-9.0) Ur Specific Ceylon (1.005-1.030) Urine Protein (NEGATIVE) Urine Glucose (UA) (NEGATIVE) Urine Ketones (NEGATIVE) Urine Occult Blood (NEGATIVE) Urine Nitrite (NEGATIVE) Urine Bilirubin (NEGATIVE) Urine Urobilinogen (0.2-1.0) mg/dL Ur Leukocyte Esterase (NEGATIVE) Urine RBC (0-5) /HPF Urine WBC (0-5/HPF) /HPF Ur Epithelial Cells (NOT SEEN) /HPF Amorphous Sediment (NOT SEEN) /HPF Urine Bacteria (0-FEW/HPF) /HPF Urine Other Ketones SARS-CoV-2 RNA (AYUSH) (NEGATIVE) Result Diagrams: 02/16/21 17:57 02/16/21 14:19 Problem List Initiated/Reviewed/Updated: Yes Orders Last 24hrs: Active Orders 24 hr Category Date Time Status Admission Diagnosis [ADT] Stat ADT 02/16/21 16:20 Ordered Admission Status [Patient Status] [ADT] Routine ADT 02/16/21 16:20 Active Blood Glucose Check, Bedside [RC] STAT Care 02/16/21 17:26 Active Cardiac Monitoring [RC] CONTINUOUS Care 02/16/21 17:26 Active Communication Order [RC] STAT Care 02/16/21 17:26 Active Communication Order [RC] STAT Care 02/16/21 17:37 Active Communication Order [RC] STAT Care 02/16/21 17:37 Active Communication Order [RC] STAT Care 02/16/21 17:37 Active Communication Order [RC] STAT Care 02/16/21 17:37 Active Rogers Catheter Insertion [Insert Urinary Catheter] [OM. Care 02/16/21 17:30 Ordered PC] Q24H Urinary Catheter Assessment [RC] ASDIRECTED Care 02/16/21 17:20 Active Chest Abdomen Pelvis w Cont [CT] Urgent Exams 02/16/21 14:28 Stop Req BLOOD GAS ARTERIAL [BG] Stat Lab 02/16/21 14:05 Ordered BLOOD GAS VENOUS [BG] Routine Lab 02/16/21 17:51 Ordered CBC WITH AUTO DIFF [HEME] Stat Lab 02/16/21 17:26 Ordered COMPREHENSIVE METABOLIC PN,CMP [CHEM] Stat Lab 02/16/21 17:26 Ordered CULTURE URINE [RM] Stat Lab 02/16/21 14:03 Received GLUCOSE RANDOM [CHEM] Q1H Lab 02/16/21 18:45 Ordered GLUCOSE RANDOM [CHEM] Q1H Lab 02/16/21 19:45 Ordered GLUCOSE RANDOM [CHEM] Q1H Lab 02/16/21 20:45 Ordered GLUCOSE RANDOM [CHEM] Q1H Lab 02/16/21 21:45 Ordered LACTATE SEPSIS W/ REFLEX [CHEM] Stat Lab 02/16/21 17:26 Ordered MAGNESIUM [CHEM] Stat Lab 02/16/21 17:26 Ordered PHOSPHORUS [CHEM] Stat Lab 02/16/21 17:26 Ordered POTASSIUM,K [CHEM] Q1H Lab 02/16/21 18:45 Ordered POTASSIUM,K [CHEM] Q1H Lab 02/16/21 19:45 Ordered POTASSIUM,K [CHEM] Q1H Lab 02/16/21 20:45 Ordered POTASSIUM,K [CHEM] Q1H Lab 02/16/21 21:45 Ordered Albumin 5% [Buminate 5%] 250 ml Med 02/16/21 14:30 Active IV ASDIRECTED Dextrose 50% in Water Med 02/16/21 14:21 Active 50 ml IVPUSH Q15M PRN Glucagon,Human Recombinant [GlucaGen] Med 02/16/21 14:21 Active 1 mg IM Q15M PRN Insulin Regular in 0.9 % NACL [Myxredlin in NS 100 UNIT Med 02/16/21 17:45 Active /100 ML] 100 unit in 100 ml IV TITRATE Sodium Bicarbonate [Sodium Bicarbonate 8.4%] 100 meq Med 02/16/21 17:21 Active Dextrose 5% in Water 1,000 ml IV ONETIME Sodium Chloride 0.9% [Normal Saline] 1,000 ml Med 02/16/21 17:30 Active IV ASDIRECTED Code Status [Resuscitation Status] Routine Resus Stat 02/16/21 17:55 Ordered Medication Orders Dextrose/Water (50% Dextrose In Water 50 Ml Syringe) 50 ml IVPUSH Q15M PRN PRN Reason: Hypoglycemia Glucagon (Glucagon,Human Recombinant 1 Mg Vial) 1 mg IM Q15M PRN PRN Reason: Hypoglycemia Albumin Human (Buminate 5%) 250 mls @ 250 mls/hr IV ASDIRECTED ERIN Last Admin: 02/16/21 15:01 Dose: 250 mls/hr Documented by: VICKEY Sodium Bicarbonate 100 meq/ (Dextrose/Water) 1,100 mls @ 999 mls/hr IV ONETIME ONE Stop: 02/16/21 18:27 Sodium Chloride (Normal Saline) 1,000 mls @ 250 mls/hr IV ASDIRECTED ERIN Insulin Regular in 0.9 % NACL (Myxredlin In Ns 100 Unit/100 Ml) 100 unit in 100 mls @ 7.82 mls/hr IV TITRATE ERIN; Protocol Assessment/Plan Comment:: Pt is critically ill due to DKA Metabolic encephalopathy due to DKA Possible trop leak due to critical illness. ? Lung infiltrates H/o CHF SHANTEL on CKD DKA protocol with IVF, Bicarbonate and insulin drip . Frequent labs and ABG. Sandrasyn Continue Tele Case manger consult in AM Full code as per old file Critical time 90 min
[2021-02-16] MEDS ORDERED: Levofloxacin/Dextrose 5%-Water 500 MG in Premix Bag 1 BAG IV SCH (18:00)
[2021-02-16 18:01] LABS: O2 DELIVERY DEVICE NASAL CANNULA
[2021-02-16 18:02] LABS: BASE EXCESS VENOUS -25.9 mmol/l ((-2)-(+3)); BICARBONATE,VENOUS 5 mmol/l (19-25); O2 SATURATION VENOUS 80.6 % (60-80); PCO2 VENOUS 23 mmHg (41-51); PH,VENOUS 6.96 (7.31-7.41); PO2 VENOUS 49 mmHg (35-42)
--- NOTE | 2021-02-16 18:25 | PCM.SN.2 ---
- Free Text/Narrative Note: Levaquin instead of Zosyn ( PCN allergy) Pt seems a little better. BP 110/60. More alert. Rogers inserted : minimal urine out. Time Documentation
[2021-02-16 18:37] LABS: CHLORIDE,CL 99 mmol/L (98-107); SODIUM,NA 134 mmol/L (136-145)
[2021-02-16 18:43] LABS: ANION GAP 34.20001 mEq/L (7-13)
[2021-02-16 20:19] LABS: BASE EXCESS VENOUS -21.1 mmol/l ((-2)-(+3)); BICARBONATE,VENOUS 7 mmol/l (19-25); O2 DELIVERY DEVICE NASAL CANNULA; O2 SATURATION VENOUS 94.5 % (60-80); PCO2 VENOUS 23 mmHg (41-51); PO2 VENOUS 72 mmHg (35-42)
[2021-02-16 20:20] LABS: PH,VENOUS 7.11 (7.31-7.41)
[2021-02-16 20:34] LABS: ANION GAP 31.5 mEq/L (7-13)
--- NOTE | 2021-02-16 20:38 | PCM.PN ---
- General Info Date of Service: 02/16/21 - Patient Data Vitals - Most Recent: Last Vital Signs Temp 92.1 F L 02/16/21 19:05 Pulse 73 02/16/21 16:59 Resp 24 H 02/16/21 16:59 BP 93/59 L 02/16/21 16:59 Pulse Ox 93 L 02/16/21 16:59 Weight - Most Recent: 172 lb 6.424 oz Lab Results Last 24 Hours: Laboratory Results - last 24 hr 02/16/21 02/16/21 02/16/21 Range/Units 13:32 13:53 14:03 WBC (5.0-10.0) 10^3/uL RBC (4.2-5.4) 10^6/uL Hgb (12.0-16.0) g/dL Hct (37.0-47.0) % MCV (80-100) fL MCH (27.0-34.0) pg MCHC (33.0-35.0) g/dL Plt Count (150-450) 10^3/uL Neut % (Auto) (42.2-75.2) % Lymph % (Auto) (20.5-50.1) % [place] % (Auto) (2-8) % Eos % (Auto) (1.0-3.0) % Baso % (Auto) (0.0-1.0) % Add Manual Diff Neutrophils % (Manual) (42-75) % Lymphocytes % (Manual) (20-50) % Monocytes % (Manual) (2-8) % Metamyelocytes % Polychromasia Hypochromasia VBG pH (7.31-7.41) VBG pCO2 (41-51) mmHg VBG pO2 (35-42) mmHg VBG HCO3 (19-25) mmol/l VBG O2 Saturation (60-80) % VBG Base Excess ((-2)-(+3)) mmol/l O2 Delivery Device Sodium (136-145) mmol/L Potassium (3.5-5.1) mmol/L Chloride (98-107) mmol/L Carbon Dioxide (21-32) mmol/L Anion Gap (7-13) mEq/L BUN (7-18) mg/dL Creatinine (0.55-1.02) mg/dL Est Cr Clr Drug Dosing Estimated GFR (MDRD) BUN/Creatinine Ratio (No establ ref range) Glucose (70-99) mg/dL POC Glucose > 600 H* (70-99) mg/dL Lactic Acid (0.4-2.0) mmol/L Calcium (8.5-10.1) mg/dL Phosphorus (2.6-4.7) mg/dL Magnesium (1.8-2.4) mg/dL Total Bilirubin (0.2-1.0) mg/dL AST (15-37) U/L ALT (14-59) U/L Alkaline Phosphatase (46-116) U/L Creatine Kinase (16-191) U/L Troponin I High Sens (<=51) pg/mL C-Reactive Protein (0.0-0.9) mg/dL B-Natriuretic Peptide (0-100) pg/ml Total Protein (6.4-8.2) g/dL Albumin (3.4-5.0) g/dL Globulin Albumin/Globulin Ratio Urine Color Dark yellow (YELLOW) Urine Appearance Turbid (CLEAR) Urine pH 5.0 (5.0-9.0) Ur Specific [place] >= 1.030 (1.005-1.030) Urine Protein >=300 H (NEGATIVE) Urine Glucose (UA) 500 H (NEGATIVE) Urine Ketones Trace H (NEGATIVE) Urine Occult Blood Small H (NEGATIVE) Urine Nitrite Negative (NEGATIVE) Urine Bilirubin Moderate H (NEGATIVE) Urine Urobilinogen 1.0 (0.2-1.0) mg/dL Ur Leukocyte Esterase Trace H (NEGATIVE) Urine RBC 0-5 (0-5) /HPF Urine WBC 0-5 (0-5/HPF) /HPF Ur Epithelial Cells Many H (NOT SEEN) /HPF Amorphous Sediment Many H (NOT SEEN) /HPF Urine Bacteria See note (0-FEW/HPF) /HPF Urine Other See note Ketones SARS-CoV-2 RNA (AYUSH) Negative (NEGATIVE) 02/16/21 02/16/21 02/16/21 Range/Units 14:19 14:19 14:19 WBC 10.7 H (5.0-10.0) 10^3/uL RBC 4.64 (4.2-5.4) 10^6/uL Hgb 10.7 L (12.0-16.0) g/dL Hct 37.8 (37.0-47.0) % MCV 81.5 D (80-100) fL MCH 23.1 L (27.0-34.0) pg MCHC 28.3 L (33.0-35.0) g/dL Plt Count 330 (150-450) 10^3/uL Neut % (Auto) 86.3 H (42.2-75.2) % Lymph % (Auto) 5.0 L (20.5-50.1) % [place] % (Auto) 8.6 H (2-8) % Eos % (Auto) 0.0 L (1.0-3.0) % Baso % (Auto) 0.1 (0.0-1.0) % Add Manual Diff Yes Neutrophils % (Manual) 90 H (42-75) % Lymphocytes % (Manual) 4 L (20-50) % Monocytes % (Manual) 3 (2-8) % Metamyelocytes % 3 Polychromasia 1+ slight Hypochromasia 1+ slight VBG pH (7.31-7.41) VBG pCO2 (41-51) mmHg VBG pO2 (35-42) mmHg VBG HCO3 (19-25) mmol/l VBG O2 Saturation (60-80) % VBG Base Excess ((-2)-(+3)) mmol/l O2 Delivery Device Sodium 133 L (136-145) mmol/L Potassium 5.0 D (3.5-5.1) mmol/L Chloride 97 L (98-107) mmol/L Carbon Dioxide < 5 L* D (21-32) mmol/L Anion Gap 36.31893 H (7-13) mEq/L BUN 33 H (7-18) mg/dL Creatinine 1.81 H (0.55-1.02) mg/dL Est Cr Clr Drug Dosing TNP Estimated GFR (MDRD) 28 BUN/Creatinine Ratio 18.2 (No establ ref range) Glucose 718 H* (70-99) mg/dL POC Glucose (70-99) mg/dL Lactic Acid (0.4-2.0) mmol/L Calcium 8.5 (8.5-10.1) mg/dL Phosphorus (2.6-4.7) mg/dL Magnesium 2.6 H (1.8-2.4) mg/dL Total Bilirubin 0.6 (0.2-1.0) mg/dL AST 13 L (15-37) U/L ALT 20 (14-59) U/L Alkaline Phosphatase 210 H (46-116) U/L Creatine Kinase 220 H (16-191) U/L Troponin I High Sens 74 H* (<=51) pg/mL C-Reactive Protein 2.9 H (0.0-0.9) mg/dL B-Natriuretic Peptide (0-100) pg/ml Total Protein 6.7 (6.4-8.2) g/dL Albumin 2.9 L (3.4-5.0) g/dL Globulin 3.8 Albumin/Globulin Ratio 0.76 Urine Color (YELLOW) Urine Appearance (CLEAR) Urine pH (5.0-9.0) Ur Specific [place] (1.005-1.030) Urine Protein (NEGATIVE) Urine Glucose (UA) (NEGATIVE) Urine Ketones (NEGATIVE) Urine Occult Blood (NEGATIVE) Urine Nitrite (NEGATIVE) Urine Bilirubin (NEGATIVE) Urine Urobilinogen (0.2-1.0) mg/dL Ur Leukocyte Esterase (NEGATIVE) Urine RBC (0-5) /HPF Urine WBC (0-5/HPF) /HPF Ur Epithelial Cells (NOT SEEN) /HPF Amorphous Sediment (NOT SEEN) /HPF Urine Bacteria (0-FEW/HPF) /HPF Urine Other Ketones Moderate-40 mg/dl SARS-CoV-2 RNA (AYUSH) (NEGATIVE) 02/16/21 02/16/21 02/16/21 Range/Units 14:19 14:19 15:40 WBC (5.0-10.0) 10^3/uL RBC (4.2-5.4) 10^6/uL Hgb (12.0-16.0) g/dL Hct (37.0-47.0) % MCV (80-100) fL MCH (27.0-34.0) pg MCHC (33.0-35.0) g/dL Plt Count (150-450) 10^3/uL Neut % (Auto) (42.2-75.2) % Lymph % (Auto) (20.5-50.1) % [place] % (Auto) (2-8) % Eos % (Auto) (1.0-3.0) % Baso % (Auto) (0.0-1.0) % Add Manual Diff Neutrophils % (Manual) (42-75) % Lymphocytes % (Manual) (20-50) % Monocytes % (Manual) (2-8) % Metamyelocytes % Polychromasia Hypochromasia VBG pH (7.31-7.41) VBG pCO2 (41-51) mmHg VBG pO2 (35-42) mmHg VBG HCO3 (19-25) mmol/l VBG O2 Saturation (60-80) % VBG Base Excess ((-2)-(+3)) mmol/l O2 Delivery Device Sodium (136-145) mmol/L Potassium (3.5-5.1) mmol/L Chloride (98-107) mmol/L Carbon Dioxide (21-32) mmol/L Anion Gap (7-13) mEq/L BUN (7-18) mg/dL Creatinine (0.55-1.02) mg/dL Est Cr Clr Drug Dosing Estimated GFR (MDRD) BUN/Creatinine Ratio (No establ ref range) Glucose (70-99) mg/dL POC Glucose > 600 H* (70-99) mg/dL Lactic Acid 1.3 (0.4-2.0) mmol/L Calcium (8.5-10.1) mg/dL Phosphorus (2.6-4.7) mg/dL Magnesium (1.8-2.4) mg/dL Total Bilirubin (0.2-1.0) mg/dL AST (15-37) U/L ALT (14-59) U/L Alkaline Phosphatase (46-116) U/L Creatine Kinase (16-191) U/L Troponin I High Sens (<=51) pg/mL C-Reactive Protein (0.0-0.9) mg/dL B-Natriuretic Peptide 2430 H (0-100) pg/ml Total Protein (6.4-8.2) g/dL Albumin (3.4-5.0) g/dL Globulin Albumin/Globulin Ratio Urine Color (YELLOW) Urine Appearance (CLEAR) Urine pH (5.0-9.0) Ur Specific [place] (1.005-1.030) Urine Protein (NEGATIVE) Urine Glucose (UA) (NEGATIVE) Urine Ketones (NEGATIVE) Urine Occult Blood (NEGATIVE) Urine Nitrite (NEGATIVE) Urine Bilirubin (NEGATIVE) Urine Urobilinogen (0.2-1.0) mg/dL Ur Leukocyte Esterase (NEGATIVE) Urine RBC (0-5) /HPF Urine WBC (0-5/HPF) /HPF Ur Epithelial Cells (NOT SEEN) /HPF Amorphous Sediment (NOT SEEN) /HPF Urine Bacteria (0-FEW/HPF) /HPF Urine Other Ketones SARS-CoV-2 RNA (AYUSH) (NEGATIVE) 02/16/21 02/16/21 02/16/21 Range/Units 16:10 16:56 17:48 WBC (5.0-10.0) 10^3/uL RBC (4.2-5.4) 10^6/uL Hgb (12.0-16.0) g/dL Hct (37.0-47.0) % MCV (80-100) fL MCH (27.0-34.0) pg MCHC (33.0-35.0) g/dL Plt Count (150-450) 10^3/uL Neut % (Auto) (42.2-75.2) % Lymph % (Auto) (20.5-50.1) % [place] % (Auto) (2-8) % Eos % (Auto) (1.0-3.0) % Baso % (Auto) (0.0-1.0) % Add Manual Diff Neutrophils % (Manual) (42-75) % Lymphocytes % (Manual) (20-50) % Monocytes % (Manual) (2-8) % Metamyelocytes % Polychromasia Hypochromasia VBG pH (7.31-7.41) VBG pCO2 (41-51) mmHg VBG pO2 (35-42) mmHg VBG HCO3 (19-25) mmol/l VBG O2 Saturation (60-80) % VBG Base Excess ((-2)-(+3)) mmol/l O2 Delivery Device Sodium (136-145) mmol/L Potassium (3.5-5.1) mmol/L Chloride (98-107) mmol/L Carbon Dioxide (21-32) mmol/L Anion Gap (7-13) mEq/L BUN (7-18) mg/dL Creatinine (0.55-1.02) mg/dL Est Cr Clr Drug Dosing Estimated GFR (MDRD) BUN/Creatinine Ratio (No establ ref range) Glucose (70-99) mg/dL POC Glucose 596 H* > 600 H* 565 H* (70-99) mg/dL Lactic Acid (0.4-2.0) mmol/L Calcium (8.5-10.1) mg/dL Phosphorus (2.6-4.7) mg/dL Magnesium (1.8-2.4) mg/dL Total Bilirubin (0.2-1.0) mg/dL AST (15-37) U/L ALT (14-59) U/L Alkaline Phosphatase (46-116) U/L Creatine Kinase (16-191) U/L Troponin I High Sens (<=51) pg/mL C-Reactive Protein (0.0-0.9) mg/dL B-Natriuretic Peptide (0-100) pg/ml Total Protein (6.4-8.2) g/dL Albumin (3.4-5.0) g/dL Globulin Albumin/Globulin Ratio Urine Color (YELLOW) Urine Appearance (CLEAR) Urine pH (5.0-9.0) Ur Specific [place] (1.005-1.030) Urine Protein (NEGATIVE) Urine Glucose (UA) (NEGATIVE) Urine Ketones (NEGATIVE) Urine Occult Blood (NEGATIVE) Urine Nitrite (NEGATIVE) Urine Bilirubin (NEGATIVE) Urine Urobilinogen (0.2-1.0) mg/dL Ur Leukocyte Esterase (NEGATIVE) Urine RBC (0-5) /HPF Urine WBC (0-5/HPF) /HPF Ur Epithelial Cells (NOT SEEN) /HPF Amorphous Sediment (NOT SEEN) /HPF Urine Bacteria (0-FEW/HPF) /HPF Urine Other Ketones SARS-CoV-2 RNA (AYUSH) (NEGATIVE) 02/16/21 02/16/21 02/16/21 Range/Units 17:57 17:57 17:57 WBC 16.1 H (5.0-10.0) 10^3/uL RBC 4.25 (4.2-5.4) 10^6/uL Hgb 9.8 L (12.0-16.0) g/dL Hct 34.1 L (37.0-47.0) % MCV 80.2 (80-100) fL MCH 23.1 L (27.0-34.0) pg MCHC 28.7 L (33.0-35.0) g/dL Plt Count 298 (150-450) 10^3/uL Neut % (Auto) 86.7 H (42.2-75.2) % Lymph % (Auto) 7.7 L (20.5-50.1) % [place] % (Auto) 5.5 (2-8) % Eos % (Auto) 0.0 L (1.0-3.0) % Baso % (Auto) 0.1 (0.0-1.0) % Add Manual Diff Neutrophils % (Manual) (42-75) % Lymphocytes % (Manual) (20-50) % Monocytes % (Manual) (2-8) % Metamyelocytes % Polychromasia Hypochromasia VBG pH (7.31-7.41) VBG pCO2 (41-51) mmHg VBG pO2 (35-42) mmHg VBG HCO3 (19-25) mmol/l VBG O2 Saturation (60-80) % VBG Base Excess ((-2)-(+3)) mmol/l O2 Delivery Device Sodium 134 L (136-145) mmol/L Potassium 4.2 (3.5-5.1) mmol/L Chloride 99 (98-107) mmol/L Carbon Dioxide < 5 L* (21-32) mmol/L Anion Gap 34.54177 H (7-13) mEq/L BUN 34 H (7-18) mg/dL Creatinine 1.87 H (0.55-1.02) mg/dL Est Cr Clr Drug Dosing TNP Estimated GFR (MDRD) 27 BUN/Creatinine Ratio 18.2 (No establ ref range) Glucose 658 H* (70-99) mg/dL POC Glucose (70-99) mg/dL Lactic Acid 1.7 (0.4-2.0) mmol/L Calcium 8.0 L (8.5-10.1) mg/dL Phosphorus 7.1 H (2.6-4.7) mg/dL Magnesium 2.4 (1.8-2.4) mg/dL Total Bilirubin 0.6 (0.2-1.0) mg/dL AST 14 L (15-37) U/L ALT 19 (14-59) U/L Alkaline Phosphatase 193 H (46-116) U/L Creatine Kinase (16-191) U/L Troponin I High Sens 155 H* (<=51) pg/mL C-Reactive Protein (0.0-0.9) mg/dL B-Natriuretic Peptide (0-100) pg/ml Total Protein 6.1 L (6.4-8.2) g/dL Albumin 2.7 L (3.4-5.0) g/dL Globulin 3.4 Albumin/Globulin Ratio 0.79 Urine Color (YELLOW) Urine Appearance (CLEAR) Urine pH (5.0-9.0) Ur Specific [place] (1.005-1.030) Urine Protein (NEGATIVE) Urine Glucose (UA) (NEGATIVE) Urine Ketones (NEGATIVE) Urine Occult Blood (NEGATIVE) Urine Nitrite (NEGATIVE) Urine Bilirubin (NEGATIVE) Urine Urobilinogen (0.2-1.0) mg/dL Ur Leukocyte Esterase (NEGATIVE) Urine RBC (0-5) /HPF Urine WBC (0-5/HPF) /HPF Ur Epithelial Cells (NOT SEEN) /HPF Amorphous Sediment (NOT SEEN) /HPF Urine Bacteria (0-FEW/HPF) /HPF Urine Other Ketones SARS-CoV-2 RNA (AYUSH) (NEGATIVE) 02/16/21 02/16/21 02/16/21 Range/Units 18:00 18:53 20:01 WBC (5.0-10.0) 10^3/uL RBC (4.2-5.4) 10^6/uL Hgb (12.0-16.0) g/dL Hct (37.0-47.0) % MCV (80-100) fL MCH (27.0-34.0) pg MCHC (33.0-35.0) g/dL Plt Count (150-450) 10^3/uL Neut % (Auto) (42.2-75.2) % Lymph % (Auto) (20.5-50.1) % [place] % (Auto) (2-8) % Eos % (Auto) (1.0-3.0) % Baso % (Auto) (0.0-1.0) % Add Manual Diff Neutrophils % (Manual) (42-75) % Lymphocytes % (Manual) (20-50) % Monocytes % (Manual) (2-8) % Metamyelocytes % Polychromasia Hypochromasia VBG pH 6.96 L* (7.31-7.41) VBG pCO2 23 L (41-51) mmHg VBG pO2 49 H (35-42) mmHg VBG HCO3 5 L (19-25) mmol/l VBG O2 Saturation 80.6 H (60-80) % VBG Base Excess -25.9 L ((-2)-(+3)) mmol/l O2 Delivery Device Nasal cannula Sodium (136-145) mmol/L Potassium (3.5-5.1) mmol/L Chloride (98-107) mmol/L Carbon Dioxide (21-32) mmol/L Anion Gap (7-13) mEq/L BUN (7-18) mg/dL Creatinine (0.55-1.02) mg/dL Est Cr Clr Drug Dosing Estimated GFR (MDRD) BUN/Creatinine Ratio (No establ ref range) Glucose (70-99) mg/dL POC Glucose 511 H* 475 H* (70-99) mg/dL Lactic Acid (0.4-2.0) mmol/L Calcium (8.5-10.1) mg/dL Phosphorus (2.6-4.7) mg/dL Magnesium (1.8-2.4) mg/dL Total Bilirubin (0.2-1.0) mg/dL AST (15-37) U/L ALT (14-59) U/L Alkaline Phosphatase (46-116) U/L Creatine Kinase (16-191) U/L Troponin I High Sens (<=51) pg/mL C-Reactive Protein (0.0-0.9) mg/dL B-Natriuretic Peptide (0-100) pg/ml Total Protein (6.4-8.2) g/dL Albumin (3.4-5.0) g/dL Globulin Albumin/Globulin Ratio Urine Color (YELLOW) Urine Appearance (CLEAR) Urine pH (5.0-9.0) Ur Specific [place] (1.005-1.030) Urine Protein (NEGATIVE) Urine Glucose (UA) (NEGATIVE) Urine Ketones (NEGATIVE) Urine Occult Blood (NEGATIVE) Urine Nitrite (NEGATIVE) Urine Bilirubin (NEGATIVE) Urine Urobilinogen (0.2-1.0) mg/dL Ur Leukocyte Esterase (NEGATIVE) Urine RBC (0-5) /HPF Urine WBC (0-5/HPF) /HPF Ur Epithelial Cells (NOT SEEN) /HPF Amorphous Sediment (NOT SEEN) /HPF Urine Bacteria (0-FEW/HPF) /HPF Urine Other Ketones SARS-CoV-2 RNA (AYUSH) (NEGATIVE) 02/16/21 Range/Units 20:15 WBC (5.0-10.0) 10^3/uL RBC (4.2-5.4) 10^6/uL Hgb (12.0-16.0) g/dL Hct (37.0-47.0) % MCV (80-100) fL MCH (27.0-34.0) pg MCHC (33.0-35.0) g/dL Plt Count (150-450) 10^3/uL Neut % (Auto) (42.2-75.2) % Lymph % (Auto) (20.5-50.1) % [place] % (Auto) (2-8) % Eos % (Auto) (1.0-3.0) % Baso % (Auto) (0.0-1.0) % Add Manual Diff Neutrophils % (Manual) (42-75) % Lymphocytes % (Manual) (20-50) % Monocytes % (Manual) (2-8) % Metamyelocytes % Polychromasia Hypochromasia VBG pH 7.11 L* (7.31-7.41) VBG pCO2 23 L (41-51) mmHg VBG pO2 72 H (35-42) mmHg VBG HCO3 7 L (19-25) mmol/l VBG O2 Saturation 94.5 H (60-80) % VBG Base Excess -21.1 L ((-2)-(+3)) mmol/l O2 Delivery Device Nasal cannula Sodium (136-145) mmol/L Potassium (3.5-5.1) mmol/L Chloride (98-107) mmol/L Carbon Dioxide (21-32) mmol/L Anion Gap (7-13) mEq/L BUN (7-18) mg/dL Creatinine (0.55-1.02) mg/dL Est Cr Clr Drug Dosing Estimated GFR (MDRD) BUN/Creatinine Ratio (No establ ref range) Glucose (70-99) mg/dL POC Glucose (70-99) mg/dL Lactic Acid (0.4-2.0) mmol/L Calcium (8.5-10.1) mg/dL Phosphorus (2.6-4.7) mg/dL Magnesium (1.8-2.4) mg/dL Total Bilirubin (0.2-1.0) mg/dL AST (15-37) U/L ALT (14-59) U/L Alkaline Phosphatase (46-116) U/L Creatine Kinase (16-191) U/L Troponin I High Sens (<=51) pg/mL C-Reactive Protein (0.0-0.9) mg/dL B-Natriuretic Peptide (0-100) pg/ml Total Protein (6.4-8.2) g/dL Albumin (3.4-5.0) g/dL Globulin Albumin/Globulin Ratio Urine Color (YELLOW) Urine Appearance (CLEAR) Urine pH (5.0-9.0) Ur Specific [place] (1.005-1.030) Urine Protein (NEGATIVE) Urine Glucose (UA) (NEGATIVE) Urine Ketones (NEGATIVE) Urine Occult Blood (NEGATIVE) Urine Nitrite (NEGATIVE) Urine Bilirubin (NEGATIVE) Urine Urobilinogen (0.2-1.0) mg/dL Ur Leukocyte Esterase (NEGATIVE) Urine RBC (0-5) /HPF Urine WBC (0-5/HPF) /HPF Ur Epithelial Cells (NOT SEEN) /HPF Amorphous Sediment (NOT SEEN) /HPF Urine Bacteria (0-FEW/HPF) /HPF Urine Other Ketones SARS-CoV-2 RNA (AYUSH) (NEGATIVE) Med Orders - Current: Current Medications Aspirin (Aspirin 81 Mg Tab.Ec) 81 mg PO DAILY ERIN Dextrose/Water (50% Dextrose In Water 50 Ml Syringe) 50 ml IVPUSH Q15M PRN PRN Reason: Hypoglycemia Glucagon (Glucagon,Human Recombinant 1 Mg Vial) 1 mg IM Q15M PRN PRN Reason: Hypoglycemia Albumin Human (Buminate 5%) 250 mls @ 250 mls/hr IV ASDIRECTED ERIN Last Admin: 02/16/21 15:01 Dose: 250 mls/hr Documented by: Sodium Chloride (Normal Saline) 1,000 mls @ 250 mls/hr IV ASDIRECTED ERIN Insulin Regular in 0.9 % NACL (Myxredlin In Ns 100 Unit/100 Ml) 100 unit in 100 mls @ 7.82 mls/hr IV TITRATE ERIN; Protocol Last Admin: 02/16/21 18:50 Dose: 0.1 units/kg/hr, 7.82 mls/hr Documented by: Levofloxacin/Dextrose 500 mg/ (Premix) 100 mls @ 100 mls/hr IV Q24H ERIN Discontinued Medications Dextrose/Water (50% Dextrose In Water 50 Ml Syringe) 50 ml IVPUSH Q15M PRN PRN Reason: Hypoglycemia Furosemide (Furosemide 20 Mg/2 Ml Vial) 20 mg IVPUSH ONETIME ONE Stop: 02/16/21 15:51 Last Admin: 02/16/21 15:54 Dose: 20 mg Documented by: Glucagon (Glucagon,Human Recombinant 1 Mg Vial) 1 mg IM Q15M PRN PRN Reason: Hypoglycemia Sodium Chloride (Normal Saline) 1,000 mls @ 999 mls/hr IV .BOLUS ONE Stop: 02/16/21 15:00 Last Admin: 02/16/21 17:42 Dose: 999 mls/hr Documented by: Sodium Bicarbonate 100 meq/ (Dextrose/Water) 1,100 mls @ 100 mls/hr IV ONETIME ONE Stop: 02/17/21 02:02 Last Admin: 02/16/21 15:18 Dose: 100 mls/hr Documented by: Insulin Regular in 0.9 % NACL (Myxredlin In Ns 100 Unit/100 Ml) 100 unit in 100 mls @ 7.82 mls/hr IV TITRATE ERIN; Protocol Sodium Bicarbonate 100 meq/ (Dextrose/Water) 1,100 mls @ 999 mls/hr IV ONETIME ONE Stop: 02/16/21 18:27 Sodium Chloride (Normal Saline) 1,000 mls @ 1,000 mls/hr IV ASDIRECTED ERIN Stop: 02/16/21 19:59 Last Admin: 02/16/21 19:02 Dose: 1,000 mls/hr Documented by: Insulin Human Regular (Insulin Regular, Human 100 Units/Ml 3 Ml Vial) 5 unit IV ONETIME ONE Stop: 02/16/21 14:22 Last Admin: 02/16/21 14:59 Dose: 5 unit Documented by: Insulin Human Regular (Insulin Regular, Human 100 Units/Ml 3 Ml Vial) 10 unit IV STAT STA Stop: 02/16/21 17:11 Last Admin: 02/16/21 17:19 Dose: 10 units Documented by: Insulin Human Regular (Insulin Regular, Human 100 Units/Ml 3 Ml Vial) 10 unit IV ONETIME ONE Stop: 02/16/21 18:13 Last Admin: 02/16/21 18:14 Dose: 10 units Documented by: Sodium Bicarbonate (Sodium Bicarbonate 8.4% 50 Meq/50 Ml Syringe) 50 meq IVPUSH ONETIME ONE Stop: 02/16/21 15:04 Last Admin: 02/16/21 15:08 Dose: 50 meq Documented by: Sodium Bicarbonate (Sodium Bicarbonate 8.4% 50 Meq/50 Ml Syringe) 100 meq IVPUSH ONETIME ONE Stop: 02/16/21 17:24 Last Admin: 02/16/21 17:49 Dose: 100 meq Documented by: - Exam Urinary Catheter Total Time: 0Days 1Hours #2 Interpretation Rhythm: NSR P-Wave: Present Comparison: No Change EKG Interpretation Comments: possible old inferior HI. nonspecific interventricular conduction delay. unchanged from Sep 29 2020 - Patient Data Lab Results Last 24 hrs: Laboratory Results - last 24 hr 02/16/21 02/16/21 02/16/21 Range/Units 13:32 13:53 14:03 WBC (5.0-10.0) 10^3/uL RBC (4.2-5.4) 10^6/uL Hgb (12.0-16.0) g/dL Hct (37.0-47.0) % MCV (80-100) fL MCH (27.0-34.0) pg MCHC (33.0-35.0) g/dL Plt Count (150-450) 10^3/uL Neut % (Auto) (42.2-75.2) % Lymph % (Auto) (20.5-50.1) % [place] % (Auto) (2-8) % Eos % (Auto) (1.0-3.0) % Baso % (Auto) (0.0-1.0) % Add Manual Diff Neutrophils % (Manual) (42-75) % Lymphocytes % (Manual) (20-50) % Monocytes % (Manual) (2-8) % Metamyelocytes % Polychromasia Hypochromasia VBG pH (7.31-7.41) VBG pCO2 (41-51) mmHg VBG pO2 (35-42) mmHg VBG HCO3 (19-25) mmol/l VBG O2 Saturation (60-80) % VBG Base Excess ((-2)-(+3)) mmol/l O2 Delivery Device Sodium (136-145) mmol/L Potassium (3.5-5.1) mmol/L Chloride (98-107) mmol/L Carbon Dioxide (21-32) mmol/L Anion Gap (7-13) mEq/L BUN (7-18) mg/dL Creatinine (0.55-1.02) mg/dL Est Cr Clr Drug Dosing Estimated GFR (MDRD) BUN/Creatinine Ratio (No establ ref range) Glucose (70-99) mg/dL POC Glucose > 600 H* (70-99) mg/dL Lactic Acid (0.4-2.0) mmol/L Calcium (8.5-10.1) mg/dL Phosphorus (2.6-4.7) mg/dL Magnesium (1.8-2.4) mg/dL Total Bilirubin (0.2-1.0) mg/dL AST (15-37) U/L ALT (14-59) U/L Alkaline Phosphatase (46-116) U/L Creatine Kinase (16-191) U/L Troponin I High Sens (<=51) pg/mL C-Reactive Protein (0.0-0.9) mg/dL B-Natriuretic Peptide (0-100) pg/ml Total Protein (6.4-8.2) g/dL Albumin (3.4-5.0) g/dL Globulin Albumin/Globulin Ratio Urine Color Dark yellow (YELLOW) Urine Appearance Turbid (CLEAR) Urine pH 5.0 (5.0-9.0) Ur Specific [place] >= 1.030 (1.005-1.030) Urine Protein >=300 H (NEGATIVE) Urine Glucose (UA) 500 H (NEGATIVE) Urine Ketones Trace H (NEGATIVE) Urine Occult Blood Small H (NEGATIVE) Urine Nitrite Negative (NEGATIVE) Urine Bilirubin Moderate H (NEGATIVE) Urine Urobilinogen 1.0 (0.2-1.0) mg/dL Ur Leukocyte Esterase Trace H (NEGATIVE) Urine RBC 0-5 (0-5) /HPF Urine WBC 0-5 (0-5/HPF) /HPF Ur Epithelial Cells Many H (NOT SEEN) /HPF Amorphous Sediment Many H (NOT SEEN) /HPF Urine Bacteria See note (0-FEW/HPF) /HPF Urine Other See note Ketones SARS-CoV-2 RNA (AYUSH) Negative (NEGATIVE) 10/17/21 10/17/21 10/17/21 Range/Units 14:19 14:19 14:19 WBC 10.7 H (5.0-10.0) 10^3/uL RBC 4.64 (4.2-5.4) 10^6/uL Hgb 10.7 L (12.0-16.0) g/dL Hct 37.8 (37.0-47.0) % MCV 81.5 D (80-100) fL MCH 23.1 L (27.0-34.0) pg MCHC 28.3 L (33.0-35.0) g/dL Plt Count 330 (150-450) 10^3/uL Neut % (Auto) 86.3 H (42.2-75.2) % Lymph % (Auto) 5.0 L (20.5-50.1) % [place] % (Auto) 8.6 H (2-8) % Eos % (Auto) 0.0 L (1.0-3.0) % Baso % (Auto) 0.1 (0.0-1.0) % Add Manual Diff Yes Neutrophils % (Manual) 90 H (42-75) % Lymphocytes % (Manual) 4 L (20-50) % Monocytes % (Manual) 3 (2-8) % Metamyelocytes % 3 Polychromasia 1+ slight Hypochromasia 1+ slight VBG pH (7.31-7.41) VBG pCO2 (41-51) mmHg VBG pO2 (35-42) mmHg VBG HCO3 (19-25) mmol/l VBG O2 Saturation (60-80) % VBG Base Excess ((-2)-(+3)) mmol/l O2 Delivery Device Sodium 133 L (136-145) mmol/L Potassium 5.0 D (3.5-5.1) mmol/L Chloride 97 L (98-107) mmol/L Carbon Dioxide < 5 L* D (21-32) mmol/L Anion Gap 36.09147 H (7-13) mEq/L BUN 33 H (7-18) mg/dL Creatinine 1.81 H (0.55-1.02) mg/dL Est Cr Clr Drug Dosing TNP Estimated GFR (MDRD) 28 BUN/Creatinine Ratio 18.2 (No establ ref range) Glucose 718 H* (70-99) mg/dL POC Glucose (70-99) mg/dL Lactic Acid (0.4-2.0) mmol/L Calcium 8.5 (8.5-10.1) mg/dL Phosphorus (2.6-4.7) mg/dL Magnesium 2.6 H (1.8-2.4) mg/dL Total Bilirubin 0.6 (0.2-1.0) mg/dL AST 13 L (15-37) U/L ALT 20 (14-59) U/L Alkaline Phosphatase 210 H (46-116) U/L Creatine Kinase 220 H (16-191) U/L Troponin I High Sens 74 H* (<=51) pg/mL C-Reactive Protein 2.9 H (0.0-0.9) mg/dL B-Natriuretic Peptide (0-100) pg/ml Total Protein 6.7 (6.4-8.2) g/dL Albumin 2.9 L (3.4-5.0) g/dL Globulin 3.8 Albumin/Globulin Ratio 0.76 Urine Color (YELLOW) Urine Appearance (CLEAR) Urine pH (5.0-9.0) Ur Specific [place] (1.005-1.030) Urine Protein (NEGATIVE) Urine Glucose (UA) (NEGATIVE) Urine Ketones (NEGATIVE) Urine Occult Blood (NEGATIVE) Urine Nitrite (NEGATIVE) Urine Bilirubin (NEGATIVE) Urine Urobilinogen (0.2-1.0) mg/dL Ur Leukocyte Esterase (NEGATIVE) Urine RBC (0-5) /HPF Urine WBC (0-5/HPF) /HPF Ur Epithelial Cells (NOT SEEN) /HPF Amorphous Sediment (NOT SEEN) /HPF Urine Bacteria (0-FEW/HPF) /HPF Urine Other Ketones Moderate-40 mg/dl SARS-CoV-2 RNA (AYUSH) (NEGATIVE) 02/16/21 02/16/21 02/16/21 Range/Units 14:19 14:19 15:40 WBC (5.0-10.0) 10^3/uL RBC (4.2-5.4) 10^6/uL Hgb (12.0-16.0) g/dL Hct (37.0-47.0) % MCV (80-100) fL MCH (27.0-34.0) pg MCHC (33.0-35.0) g/dL Plt Count (150-450) 10^3/uL Neut % (Auto) (42.2-75.2) % Lymph % (Auto) (20.5-50.1) % [place] % (Auto) (2-8) % Eos % (Auto) (1.0-3.0) % Baso % (Auto) (0.0-1.0) % Add Manual Diff Neutrophils % (Manual) (42-75) % Lymphocytes % (Manual) (20-50) % Monocytes % (Manual) (2-8) % Metamyelocytes % Polychromasia Hypochromasia VBG pH (7.31-7.41) VBG pCO2 (41-51) mmHg VBG pO2 (35-42) mmHg VBG HCO3 (19-25) mmol/l VBG O2 Saturation (60-80) % VBG Base Excess ((-2)-(+3)) mmol/l O2 Delivery Device Sodium (136-145) mmol/L Potassium (3.5-5.1) mmol/L Chloride (98-107) mmol/L Carbon Dioxide (21-32) mmol/L Anion Gap (7-13) mEq/L BUN (7-18) mg/dL Creatinine (0.55-1.02) mg/dL Est Cr Clr Drug Dosing Estimated GFR (MDRD) BUN/Creatinine Ratio (No establ ref range) Glucose (70-99) mg/dL POC Glucose > 600 H* (70-99) mg/dL Lactic Acid 1.3 (0.4-2.0) mmol/L Calcium (8.5-10.1) mg/dL Phosphorus (2.6-4.7) mg/dL Magnesium (1.8-2.4) mg/dL Total Bilirubin (0.2-1.0) mg/dL AST (15-37) U/L ALT (14-59) U/L Alkaline Phosphatase (46-116) U/L Creatine Kinase (16-191) U/L Troponin I High Sens (<=51) pg/mL C-Reactive Protein (0.0-0.9) mg/dL B-Natriuretic Peptide 2430 H (0-100) pg/ml Total Protein (6.4-8.2) g/dL Albumin (3.4-5.0) g/dL Globulin Albumin/Globulin Ratio Urine Color (YELLOW) Urine Appearance (CLEAR) Urine pH (5.0-9.0) Ur Specific [place] (1.005-1.030) Urine Protein (NEGATIVE) Urine Glucose (UA) (NEGATIVE) Urine Ketones (NEGATIVE) Urine Occult Blood (NEGATIVE) Urine Nitrite (NEGATIVE) Urine Bilirubin (NEGATIVE) Urine Urobilinogen (0.2-1.0) mg/dL Ur Leukocyte Esterase (NEGATIVE) Urine RBC (0-5) /HPF Urine WBC (0-5/HPF) /HPF Ur Epithelial Cells (NOT SEEN) /HPF Amorphous Sediment (NOT SEEN) /HPF Urine Bacteria (0-FEW/HPF) /HPF Urine Other Ketones SARS-CoV-2 RNA (AYUSH) (NEGATIVE) 02/16/21 02/16/21 02/16/21 Range/Units 16:10 16:56 17:48 WBC (5.0-10.0) 10^3/uL RBC (4.2-5.4) 10^6/uL Hgb (12.0-16.0) g/dL Hct (37.0-47.0) % MCV (80-100) fL MCH (27.0-34.0) pg MCHC (33.0-35.0) g/dL Plt Count (150-450) 10^3/uL Neut % (Auto) (42.2-75.2) % Lymph % (Auto) (20.5-50.1) % [place] % (Auto) (2-8) % Eos % (Auto) (1.0-3.0) % Baso % (Auto) (0.0-1.0) % Add Manual Diff Neutrophils % (Manual) (42-75) % Lymphocytes % (Manual) (20-50) % Monocytes % (Manual) (2-8) % Metamyelocytes % Polychromasia Hypochromasia VBG pH (7.31-7.41) VBG pCO2 (41-51) mmHg VBG pO2 (35-42) mmHg VBG HCO3 (19-25) mmol/l VBG O2 Saturation (60-80) % VBG Base Excess ((-2)-(+3)) mmol/l O2 Delivery Device Sodium (136-145) mmol/L Potassium (3.5-5.1) mmol/L Chloride (98-107) mmol/L Carbon Dioxide (21-32) mmol/L Anion Gap (7-13) mEq/L BUN (7-18) mg/dL Creatinine (0.55-1.02) mg/dL Est Cr Clr Drug Dosing Estimated GFR (MDRD) BUN/Creatinine Ratio (No establ ref range) Glucose (70-99) mg/dL POC Glucose 596 H* > 600 H* 565 H* (70-99) mg/dL Lactic Acid (0.4-2.0) mmol/L Calcium (8.5-10.1) mg/dL Phosphorus (2.6-4.7) mg/dL Magnesium (1.8-2.4) mg/dL Total Bilirubin (0.2-1.0) mg/dL AST (15-37) U/L ALT (14-59) U/L Alkaline Phosphatase (46-116) U/L Creatine Kinase (16-191) U/L Troponin I High Sens (<=51) pg/mL C-Reactive Protein (0.0-0.9) mg/dL B-Natriuretic Peptide (0-100) pg/ml Total Protein (6.4-8.2) g/dL Albumin (3.4-5.0) g/dL Globulin Albumin/Globulin Ratio Urine Color (YELLOW) Urine Appearance (CLEAR) Urine pH (5.0-9.0) Ur Specific [place] (1.005-1.030) Urine Protein (NEGATIVE) Urine Glucose (UA) (NEGATIVE) Urine Ketones (NEGATIVE) Urine Occult Blood (NEGATIVE) Urine Nitrite (NEGATIVE) Urine Bilirubin (NEGATIVE) Urine Urobilinogen (0.2-1.0) mg/dL Ur Leukocyte Esterase (NEGATIVE) Urine RBC (0-5) /HPF Urine WBC (0-5/HPF) /HPF Ur Epithelial Cells (NOT SEEN) /HPF Amorphous Sediment (NOT SEEN) /HPF Urine Bacteria (0-FEW/HPF) /HPF Urine Other Ketones SARS-CoV-2 RNA (AYUSH) (NEGATIVE) 02/16/21 02/16/21 02/16/21 Range/Units 17:57 17:57 17:57 WBC 16.1 H (5.0-10.0) 10^3/uL RBC 4.25 (4.2-5.4) 10^6/uL Hgb 9.8 L (12.0-16.0) g/dL Hct 34.1 L (37.0-47.0) % MCV 80.2 (80-100) fL MCH 23.1 L (27.0-34.0) pg MCHC 28.7 L (33.0-35.0) g/dL Plt Count 298 (150-450) 10^3/uL Neut % (Auto) 86.7 H (42.2-75.2) % Lymph % (Auto) 7.7 L (20.5-50.1) % [place] % (Auto) 5.5 (2-8) % Eos % (Auto) 0.0 L (1.0-3.0) % Baso % (Auto) 0.1 (0.0-1.0) % Add Manual Diff Neutrophils % (Manual) (42-75) % Lymphocytes % (Manual) (20-50) % Monocytes % (Manual) (2-8) % Metamyelocytes % Polychromasia Hypochromasia VBG pH (7.31-7.41) VBG pCO2 (41-51) mmHg VBG pO2 (35-42) mmHg VBG HCO3 (19-25) mmol/l VBG O2 Saturation (60-80) % VBG Base Excess ((-2)-(+3)) mmol/l O2 Delivery Device Sodium 134 L (136-145) mmol/L Potassium 4.2 (3.5-5.1) mmol/L Chloride 99 (98-107) mmol/L Carbon Dioxide < 5 L* (21-32) mmol/L Anion Gap 34.33575 H (7-13) mEq/L BUN 34 H (7-18) mg/dL Creatinine 1.87 H (0.55-1.02) mg/dL Est Cr Clr Drug Dosing TNP Estimated GFR (MDRD) 27 BUN/Creatinine Ratio 18.2 (No establ ref range) Glucose 658 H* (70-99) mg/dL POC Glucose (70-99) mg/dL Lactic Acid 1.7 (0.4-2.0) mmol/L Calcium 8.0 L (8.5-10.1) mg/dL Phosphorus 7.1 H (2.6-4.7) mg/dL Magnesium 2.4 (1.8-2.4) mg/dL Total Bilirubin 0.6 (0.2-1.0) mg/dL AST 14 L (15-37) U/L ALT 19 (14-59) U/L Alkaline Phosphatase 193 H (46-116) U/L Creatine Kinase (16-191) U/L Troponin I High Sens 155 H* (<=51) pg/mL C-Reactive Protein (0.0-0.9) mg/dL B-Natriuretic Peptide (0-100) pg/ml Total Protein 6.1 L (6.4-8.2) g/dL Albumin 2.7 L (3.4-5.0) g/dL Globulin 3.4 Albumin/Globulin Ratio 0.79 Urine Color (YELLOW) Urine Appearance (CLEAR) Urine pH (5.0-9.0) Ur Specific [place] (1.005-1.030) Urine Protein (NEGATIVE) Urine Glucose (UA) (NEGATIVE) Urine Ketones (NEGATIVE) Urine Occult Blood (NEGATIVE) Urine Nitrite (NEGATIVE) Urine Bilirubin (NEGATIVE) Urine Urobilinogen (0.2-1.0) mg/dL Ur Leukocyte Esterase (NEGATIVE) Urine RBC (0-5) /HPF Urine WBC (0-5/HPF) /HPF Ur Epithelial Cells (NOT SEEN) /HPF Amorphous Sediment (NOT SEEN) /HPF Urine Bacteria (0-FEW/HPF) /HPF Urine Other Ketones SARS-CoV-2 RNA (AYUSH) (NEGATIVE) 02/16/21 02/16/21 02/16/21 Range/Units 18:00 18:53 20:01 WBC (5.0-10.0) 10^3/uL RBC (4.2-5.4) 10^6/uL Hgb (12.0-16.0) g/dL Hct (37.0-47.0) % MCV (80-100) fL MCH (27.0-34.0) pg MCHC (33.0-35.0) g/dL Plt Count (150-450) 10^3/uL Neut % (Auto) (42.2-75.2) % Lymph % (Auto) (20.5-50.1) % [place] % (Auto) (2-8) % Eos % (Auto) (1.0-3.0) % Baso % (Auto) (0.0-1.0) % Add Manual Diff Neutrophils % (Manual) (42-75) % Lymphocytes % (Manual) (20-50) % Monocytes % (Manual) (2-8) % Metamyelocytes % Polychromasia Hypochromasia VBG pH 6.96 L* (7.31-7.41) VBG pCO2 23 L (41-51) mmHg VBG pO2 49 H (35-42) mmHg VBG HCO3 5 L (19-25) mmol/l VBG O2 Saturation 80.6 H (60-80) % VBG Base Excess -25.9 L ((-2)-(+3)) mmol/l O2 Delivery Device Nasal cannula Sodium (136-145) mmol/L Potassium (3.5-5.1) mmol/L Chloride (98-107) mmol/L Carbon Dioxide (21-32) mmol/L Anion Gap (7-13) mEq/L BUN (7-18) mg/dL Creatinine (0.55-1.02) mg/dL Est Cr Clr Drug Dosing Estimated GFR (MDRD) BUN/Creatinine Ratio (No establ ref range) Glucose (70-99) mg/dL POC Glucose 511 H* 475 H* (70-99) mg/dL Lactic Acid (0.4-2.0) mmol/L Calcium (8.5-10.1) mg/dL Phosphorus (2.6-4.7) mg/dL Magnesium (1.8-2.4) mg/dL Total Bilirubin (0.2-1.0) mg/dL AST (15-37) U/L ALT (14-59) U/L Alkaline Phosphatase (46-116) U/L Creatine Kinase (16-191) U/L Troponin I High Sens (<=51) pg/mL C-Reactive Protein (0.0-0.9) mg/dL B-Natriuretic Peptide (0-100) pg/ml Total Protein (6.4-8.2) g/dL Albumin (3.4-5.0) g/dL Globulin Albumin/Globulin Ratio Urine Color (YELLOW) Urine Appearance (CLEAR) Urine pH (5.0-9.0) Ur Specific [place] (1.005-1.030) Urine Protein (NEGATIVE) Urine Glucose (UA) (NEGATIVE) Urine Ketones (NEGATIVE) Urine Occult Blood (NEGATIVE) Urine Nitrite (NEGATIVE) Urine Bilirubin (NEGATIVE) Urine Urobilinogen (0.2-1.0) mg/dL Ur Leukocyte Esterase (NEGATIVE) Urine RBC (0-5) /HPF Urine WBC (0-5/HPF) /HPF Ur Epithelial Cells (NOT SEEN) /HPF Amorphous Sediment (NOT SEEN) /HPF Urine Bacteria (0-FEW/HPF) /HPF Urine Other Ketones SARS-CoV-2 RNA (AYUSH) (NEGATIVE) 02/16/21 Range/Units 20:15 WBC (5.0-10.0) 10^3/uL RBC (4.2-5.4) 10^6/uL Hgb (12.0-16.0) g/dL Hct (37.0-47.0) % MCV (80-100) fL MCH (27.0-34.0) pg MCHC (33.0-35.0) g/dL Plt Count (150-450) 10^3/uL Neut % (Auto) (42.2-75.2) % Lymph % (Auto) (20.5-50.1) % [place] % (Auto) (2-8) % Eos % (Auto) (1.0-3.0) % Baso % (Auto) (0.0-1.0) % Add Manual Diff Neutrophils % (Manual) (42-75) % Lymphocytes % (Manual) (20-50) % Monocytes % (Manual) (2-8) % Metamyelocytes % Polychromasia Hypochromasia VBG pH 7.11 L* (7.31-7.41) VBG pCO2 23 L (41-51) mmHg VBG pO2 72 H (35-42) mmHg VBG HCO3 7 L (19-25) mmol/l VBG O2 Saturation 94.5 H (60-80) % VBG Base Excess -21.1 L ((-2)-(+3)) mmol/l O2 Delivery Device Nasal cannula Sodium (136-145) mmol/L Potassium (3.5-5.1) mmol/L Chloride (98-107) mmol/L Carbon Dioxide (21-32) mmol/L Anion Gap (7-13) mEq/L BUN (7-18) mg/dL Creatinine (0.55-1.02) mg/dL Est Cr Clr Drug Dosing Estimated GFR (MDRD) BUN/Creatinine Ratio (No establ ref range) Glucose (70-99) mg/dL POC Glucose (70-99) mg/dL Lactic Acid (0.4-2.0) mmol/L Calcium (8.5-10.1) mg/dL Phosphorus (2.6-4.7) mg/dL Magnesium (1.8-2.4) mg/dL Total Bilirubin (0.2-1.0) mg/dL AST (15-37) U/L ALT (14-59) U/L Alkaline Phosphatase (46-116) U/L Creatine Kinase (16-191) U/L Troponin I High Sens (<=51) pg/mL C-Reactive Protein (0.0-0.9) mg/dL B-Natriuretic Peptide (0-100) pg/ml Total Protein (6.4-8.2) g/dL Albumin (3.4-5.0) g/dL Globulin Albumin/Globulin Ratio Urine Color (YELLOW) Urine Appearance (CLEAR) Urine pH (5.0-9.0) Ur Specific [place] (1.005-1.030) Urine Protein (NEGATIVE) Urine Glucose (UA) (NEGATIVE) Urine Ketones (NEGATIVE) Urine Occult Blood (NEGATIVE) Urine Nitrite (NEGATIVE) Urine Bilirubin (NEGATIVE) Urine Urobilinogen (0.2-1.0) mg/dL Ur Leukocyte Esterase (NEGATIVE) Urine RBC (0-5) /HPF Urine WBC (0-5/HPF) /HPF Ur Epithelial Cells (NOT SEEN) /HPF Amorphous Sediment (NOT SEEN) /HPF Urine Bacteria (0-FEW/HPF) /HPF Urine Other Ketones SARS-CoV-2 RNA (AYUSH) (NEGATIVE) Result Diagrams: 02/16/21 17:57 02/16/21 17:57 Sepsis Event Note - Evaluation Sepsis Screening Result: No Definite Risk - Focused Exam Vital Signs: Vital Signs Temp Temp Pulse Resp BP Pulse Ox 02/16/21 19:05 92.1 F L 02/16/21 16:59 90.5 F L 96.0 F L 73 24 H 93/59 L 93 L 02/16/21 14:42 97.0 F 74 28 H 98/79 96 - Problem List Review Problem List Initiated/Reviewed/Updated: No - My Orders Last 24 Hours: My Active Orders 02/16/21 17:20 Urinary Catheter Assessment [RC] ASDIRECTED 02/16/21 17:26 Blood Glucose Check, Bedside [RC] STAT Cardiac Monitoring [RC] CONTINUOUS Communication Order [RC] STAT 02/16/21 17:30 Rogers Catheter Insertion [Insert Urinary Catheter] [OM.PC] Q24H Sodium Chloride 0.9% [Normal Saline] 1,000 ml IV ASDIRECTED 02/16/21 17:37 Communication Order [RC] STAT Communication Order [RC] STAT Communication Order [RC] STAT Communication Order [RC] STAT 02/16/21 17:45 Insulin Regular in 0.9 % NACL [Myxredlin in NS 100 UNIT/100 ML] 100 unit in 100 ml IV TITRATE 02/16/21 17:55 Code Status [Resuscitation Status] Routine 02/16/21 18:00 Levofloxacin/Dextrose 5%-Water [Levaquin in D5W 500 MG/100 ML] 500 mg Premix Bag 1 bag IV Q24H 02/16/21 18:15 Aspirin [Halfprin] 81 mg PO DAILY 02/16/21 18:25 EKG 12 Lead [EKG Documentation Completion] [RC] URGENT 02/16/21 18:27 EKG 12 Lead [EKG Documentation Completion] [RC] AM 02/16/21 20:00 BASIC METABOLIC PANEL,BMP [CHEM] Timed 02/16/21 21:45 GLUCOSE RANDOM [CHEM] Q1H POTASSIUM,K [CHEM] Q1H 02/17/21 05:11 BASIC METABOLIC PANEL,BMP [CHEM] AM CBC WITH AUTO DIFF [HEME] AM MAGNESIUM [CHEM] AM TROPONIN I HIGH SENSITIVITY [CHEM] AM 02/18/21 05:11 BASIC METABOLIC PANEL,BMP [CHEM] AM CBC WITH AUTO DIFF [HEME] AM MAGNESIUM [CHEM] AM TROPONIN I HIGH SENSITIVITY [CHEM] AM 02/19/21 05:11 BASIC METABOLIC PANEL,BMP [CHEM] AM CBC WITH AUTO DIFF [HEME] AM MAGNESIUM [CHEM] AM 02/20/21 05:11 BASIC METABOLIC PANEL,BMP [CHEM] AM CBC WITH AUTO DIFF [HEME] AM MAGNESIUM [CHEM] AM 02/21/21 05:11 BASIC METABOLIC PANEL,BMP [CHEM] AM CBC WITH AUTO DIFF [HEME] AM MAGNESIUM [CHEM] AM 02/22/21 05:11 BASIC METABOLIC PANEL,BMP [CHEM] AM CBC WITH AUTO DIFF [HEME] AM MAGNESIUM [CHEM] AM 02/23/21 05:11 BASIC METABOLIC PANEL,BMP [CHEM] AM CBC WITH AUTO DIFF [HEME] AM MAGNESIUM [CHEM] AM - Plan Plan:: Pt is critically ill due to DKA Metabolic encephalopathy due to DKA Possible trop leak due to critical illness. ? Lung infiltrates H/o CHF SHANTEL on CKD DKA protocol with IVF, Bicarbonate and insulin drip . Frequent labs and ABG. Sandrasyyamileth Continue Tele Case manger consult in AM Full code as per old file Critical time 90 min
--- NOTE | 2021-02-16 20:41 | PCM.SN.2 ---
- Free Text/Narrative Note: breating better. BP improved to ~ 110. No UOP so far. BS : 474 . PH improved 7.11 Continue with IV drip. add potassium. Time Documentation
[2021-02-16] MEDS: Sodium Chloride 0.9% with KCl 1,000 ML IV SCH (21:00)
[2021-02-16] MEDS: Aspirin 81 MG Tab.EC PO SCH (22:59)
[2021-02-16 23:12] LABS: O2 DELIVERY DEVICE NASAL CANNULA
[2021-02-16 23:16] LABS: BASE EXCESS VENOUS -17.9 mmol/l ((-2)-(+3)); BICARBONATE,VENOUS 7 mmol/l (19-25); O2 SATURATION VENOUS 99.6 % (60-80); PH,VENOUS 7.29 (7.31-7.41); PO2 VENOUS 186 mmHg (35-42)
[2021-02-16 23:19] LABS: PCO2 VENOUS 16 mmHg (41-51)
[2021-02-16 23:30] LABS: ANION GAP 27.2 mEq/L (7-13)
[2021-02-17] MEDS: Sodium Chloride 0.9% with KCl 1,000 ML IV SCH (01:48)
[2021-02-17] MEDS ORDERED: Sodium Bicarbonate 100 MEQ in Dextrose 5% in Water 1,000 ML IV ONE ×2 (03:20)
[2021-02-17] MEDS ORDERED: Glucagon,Human Recombinant 1 MG Vial IM PRN ×2 (04:12→11:17)
[2021-02-17] MEDS ORDERED: Insulin Glarg,Human.Rec.Analog 100 Unit/ML SUBCUT ONE (04:12)
[2021-02-17] MEDS ORDERED: 50% Dextrose in Water 50 ML Syringe IVPUSH PRN ×2 (04:12→11:17)
[2021-02-17] MEDS ORDERED: Insulin Lispro 100 Units/ML 3 ML Vial SUBCUT ONE (04:14)
[2021-02-17] MEDS: Potassium Chloride 10 MEQ Tab.ER PO ONE ×2 (04:37→07:20)
[2021-02-17] MEDS ORDERED: Potassium Chloride 10 MEQ Tab.ER PO ONE (07:51)
[2021-02-17 08:03] LABS: ANION GAP 22.1 mEq/L (7-13)
[2021-02-17 08:18] LABS: BASE EXCESS VENOUS -5.5 mmol/l ((-2)-(+3)); BICARBONATE,VENOUS 18 mmol/l (19-25); O2 DELIVERY DEVICE NASAL CANNULA; O2 SATURATION VENOUS 79.3 % (60-80); PCO2 VENOUS 31 mmHg (41-51); PH,VENOUS 7.39 (7.31-7.41); PO2 VENOUS 44 mmHg (35-42)
[2021-02-17] MEDS ORDERED: Heparin Sodium 5,000 Units/ML Vial IV ONE (08:30)
[2021-02-17] MEDS: Heparin Sodium/0.45% NaCl 25,000 UNITS/500 ML BAG IV SCH (08:41)
[2021-02-17] MEDS: Aspirin 81 MG Tab.EC PO SCH ×2 (08:43→09:40)
[2021-02-17] MEDS: Clopidogrel 75 MG Tab PO SCH ×2 (08:43→09:41)
--- NOTE | 2021-02-17 10:59 | PCM.PN ---
- General Info Date of Service: 02/17/21 Functional Status: Reports: Pain Controlled. Denies: Tolerating Diet - Review of Systems General: Denies: Fever Pulmonary: Denies: Shortness of Breath Cardiovascular: Denies: Chest Pain Gastrointestinal: Denies: Abdominal Pain Genitourinary: Denies: Dysuria Neurological: Reports: No Symptoms Psychiatric: Denies: No Symptoms - Patient Data Vitals - Most Recent: Last Vital Signs Temp 96.9 F 02/17/21 08:00 Pulse 86 02/17/21 08:00 Resp 22 H 02/17/21 08:00 BP 106/59 L 02/17/21 08:00 Pulse Ox 90 L 02/17/21 08:00 Weight - Most Recent: 172 lb 6.424 oz I&O - Last 24 Hours: Intake & Output 02/16/21 02/17/21 02/17/21 22:59 06:59 14:59 Intake Total 50 Output Total 25 205 Balance -25 -155 Lab Results Last 24 Hours: Laboratory Results - last 24 hr 02/16/21 02/16/21 02/16/21 Range/Units 13:32 13:53 14:03 WBC (5.0-10.0) 10^3/uL RBC (4.2-5.4) 10^6/uL Hgb (12.0-16.0) g/dL Hct (37.0-47.0) % MCV (80-100) fL MCH (27.0-34.0) pg MCHC (33.0-35.0) g/dL Plt Count (150-450) 10^3/uL Neut % (Auto) (42.2-75.2) % Lymph % (Auto) (20.5-50.1) % [place] % (Auto) (2-8) % Eos % (Auto) (1.0-3.0) % Baso % (Auto) (0.0-1.0) % Add Manual Diff Neutrophils % (Manual) (42-75) % Lymphocytes % (Manual) (20-50) % Monocytes % (Manual) (2-8) % Metamyelocytes % Polychromasia Hypochromasia VBG pH (7.31-7.41) VBG pCO2 (41-51) mmHg VBG pO2 (35-42) mmHg VBG HCO3 (19-25) mmol/l VBG O2 Saturation (60-80) % VBG Base Excess ((-2)-(+3)) mmol/l O2 Delivery Device Sodium (136-145) mmol/L Potassium (3.5-5.1) mmol/L Chloride (98-107) mmol/L Carbon Dioxide (21-32) mmol/L Anion Gap (7-13) mEq/L BUN (7-18) mg/dL Creatinine (0.55-1.02) mg/dL Est Cr Clr Drug Dosing Estimated GFR (MDRD) BUN/Creatinine Ratio (No establ ref range) Glucose (70-99) mg/dL POC Glucose > 600 H* (70-99) mg/dL Lactic Acid (0.4-2.0) mmol/L Calcium (8.5-10.1) mg/dL Phosphorus (2.6-4.7) mg/dL Magnesium (1.8-2.4) mg/dL Total Bilirubin (0.2-1.0) mg/dL AST (15-37) U/L ALT (14-59) U/L Alkaline Phosphatase (46-116) U/L Creatine Kinase (16-191) U/L Troponin I High Sens (<=51) pg/mL C-Reactive Protein (0.0-0.9) mg/dL B-Natriuretic Peptide (0-100) pg/ml Total Protein (6.4-8.2) g/dL Albumin (3.4-5.0) g/dL Globulin Albumin/Globulin Ratio Urine Color Dark yellow (YELLOW) Urine Appearance Turbid (CLEAR) Urine pH 5.0 (5.0-9.0) Ur Specific [place] >= 1.030 (1.005-1.030) Urine Protein >=300 H (NEGATIVE) Urine Glucose (UA) 500 H (NEGATIVE) Urine Ketones Trace H (NEGATIVE) Urine Occult Blood Small H (NEGATIVE) Urine Nitrite Negative (NEGATIVE) Urine Bilirubin Moderate H (NEGATIVE) Urine Urobilinogen 1.0 (0.2-1.0) mg/dL Ur Leukocyte Esterase Trace H (NEGATIVE) Urine RBC 0-5 (0-5) /HPF Urine WBC 0-5 (0-5/HPF) /HPF Ur Epithelial Cells Many H (NOT SEEN) /HPF Amorphous Sediment Many H (NOT SEEN) /HPF Urine Bacteria See note (0-FEW/HPF) /HPF Urine Other See note Ketones SARS-CoV-2 RNA (AYUSH) Negative (NEGATIVE) 02/16/21 02/16/21 02/16/21 Range/Units 14:19 14:19 14:19 WBC 10.7 H (5.0-10.0) 10^3/uL RBC 4.64 (4.2-5.4) 10^6/uL Hgb 10.7 L (12.0-16.0) g/dL Hct 37.8 (37.0-47.0) % MCV 81.5 D (80-100) fL MCH 23.1 L (27.0-34.0) pg MCHC 28.3 L (33.0-35.0) g/dL Plt Count 330 (150-450) 10^3/uL Neut % (Auto) 86.3 H (42.2-75.2) % Lymph % (Auto) 5.0 L (20.5-50.1) % [place] % (Auto) 8.6 H (2-8) % Eos % (Auto) 0.0 L (1.0-3.0) % Baso % (Auto) 0.1 (0.0-1.0) % Add Manual Diff Yes Neutrophils % (Manual) 90 H (42-75) % Lymphocytes % (Manual) 4 L (20-50) % Monocytes % (Manual) 3 (2-8) % Metamyelocytes % 3 Polychromasia 1+ slight Hypochromasia 1+ slight VBG pH (7.31-7.41) VBG pCO2 (41-51) mmHg VBG pO2 (35-42) mmHg VBG HCO3 (19-25) mmol/l VBG O2 Saturation (60-80) % VBG Base Excess ((-2)-(+3)) mmol/l O2 Delivery Device Sodium 133 L (136-145) mmol/L Potassium 5.0 D (3.5-5.1) mmol/L Chloride 97 L (98-107) mmol/L Carbon Dioxide < 5 L* D (21-32) mmol/L Anion Gap 36.37383 H (7-13) mEq/L BUN 33 H (7-18) mg/dL Creatinine 1.81 H (0.55-1.02) mg/dL Est Cr Clr Drug Dosing TNP Estimated GFR (MDRD) 28 BUN/Creatinine Ratio 18.2 (No establ ref range) Glucose 718 H* (70-99) mg/dL POC Glucose (70-99) mg/dL Lactic Acid (0.4-2.0) mmol/L Calcium 8.5 (8.5-10.1) mg/dL Phosphorus (2.6-4.7) mg/dL Magnesium 2.6 H (1.8-2.4) mg/dL Total Bilirubin 0.6 (0.2-1.0) mg/dL AST 13 L (15-37) U/L ALT 20 (14-59) U/L Alkaline Phosphatase 210 H (46-116) U/L Creatine Kinase 220 H (16-191) U/L Troponin I High Sens 74 H* (<=51) pg/mL C-Reactive Protein 2.9 H (0.0-0.9) mg/dL B-Natriuretic Peptide (0-100) pg/ml Total Protein 6.7 (6.4-8.2) g/dL Albumin 2.9 L (3.4-5.0) g/dL Globulin 3.8 Albumin/Globulin Ratio 0.76 Urine Color (YELLOW) Urine Appearance (CLEAR) Urine pH (5.0-9.0) Ur Specific [place] (1.005-1.030) Urine Protein (NEGATIVE) Urine Glucose (UA) (NEGATIVE) Urine Ketones (NEGATIVE) Urine Occult Blood (NEGATIVE) Urine Nitrite (NEGATIVE) Urine Bilirubin (NEGATIVE) Urine Urobilinogen (0.2-1.0) mg/dL Ur Leukocyte Esterase (NEGATIVE) Urine RBC (0-5) /HPF Urine WBC (0-5/HPF) /HPF Ur Epithelial Cells (NOT SEEN) /HPF Amorphous Sediment (NOT SEEN) /HPF Urine Bacteria (0-FEW/HPF) /HPF Urine Other Ketones Moderate-40 mg/dl SARS-CoV-2 RNA (AYUSH) (NEGATIVE) 02/16/21 02/16/21 02/16/21 Range/Units 14:19 14:19 15:40 WBC (5.0-10.0) 10^3/uL RBC (4.2-5.4) 10^6/uL Hgb (12.0-16.0) g/dL Hct (37.0-47.0) % MCV (80-100) fL MCH (27.0-34.0) pg MCHC (33.0-35.0) g/dL Plt Count (150-450) 10^3/uL Neut % (Auto) (42.2-75.2) % Lymph % (Auto) (20.5-50.1) % [place] % (Auto) (2-8) % Eos % (Auto) (1.0-3.0) % Baso % (Auto) (0.0-1.0) % Add Manual Diff Neutrophils % (Manual) (42-75) % Lymphocytes % (Manual) (20-50) % Monocytes % (Manual) (2-8) % Metamyelocytes % Polychromasia Hypochromasia VBG pH (7.31-7.41) VBG pCO2 (41-51) mmHg VBG pO2 (35-42) mmHg VBG HCO3 (19-25) mmol/l VBG O2 Saturation (60-80) % VBG Base Excess ((-2)-(+3)) mmol/l O2 Delivery Device Sodium (136-145) mmol/L Potassium (3.5-5.1) mmol/L Chloride (98-107) mmol/L Carbon Dioxide (21-32) mmol/L Anion Gap (7-13) mEq/L BUN (7-18) mg/dL Creatinine (0.55-1.02) mg/dL Est Cr Clr Drug Dosing Estimated GFR (MDRD) BUN/Creatinine Ratio (No establ ref range) Glucose (70-99) mg/dL POC Glucose > 600 H* (70-99) mg/dL Lactic Acid 1.3 (0.4-2.0) mmol/L Calcium (8.5-10.1) mg/dL Phosphorus (2.6-4.7) mg/dL Magnesium (1.8-2.4) mg/dL Total Bilirubin (0.2-1.0) mg/dL AST (15-37) U/L ALT (14-59) U/L Alkaline Phosphatase (46-116) U/L Creatine Kinase (16-191) U/L Troponin I High Sens (<=51) pg/mL C-Reactive Protein (0.0-0.9) mg/dL B-Natriuretic Peptide 2430 H (0-100) pg/ml Total Protein (6.4-8.2) g/dL Albumin (3.4-5.0) g/dL Globulin Albumin/Globulin Ratio Urine Color (YELLOW) Urine Appearance (CLEAR) Urine pH (5.0-9.0) Ur Specific [place] (1.005-1.030) Urine Protein (NEGATIVE) Urine Glucose (UA) (NEGATIVE) Urine Ketones (NEGATIVE) Urine Occult Blood (NEGATIVE) Urine Nitrite (NEGATIVE) Urine Bilirubin (NEGATIVE) Urine Urobilinogen (0.2-1.0) mg/dL Ur Leukocyte Esterase (NEGATIVE) Urine RBC (0-5) /HPF Urine WBC (0-5/HPF) /HPF Ur Epithelial Cells (NOT SEEN) /HPF Amorphous Sediment (NOT SEEN) /HPF Urine Bacteria (0-FEW/HPF) /HPF Urine Other Ketones SARS-CoV-2 RNA (AYUSH) (NEGATIVE) 02/16/21 02/16/21 02/16/21 Range/Units 16:10 16:56 17:48 WBC (5.0-10.0) 10^3/uL RBC (4.2-5.4) 10^6/uL Hgb (12.0-16.0) g/dL Hct (37.0-47.0) % MCV (80-100) fL MCH (27.0-34.0) pg MCHC (33.0-35.0) g/dL Plt Count (150-450) 10^3/uL Neut % (Auto) (42.2-75.2) % Lymph % (Auto) (20.5-50.1) % [place] % (Auto) (2-8) % Eos % (Auto) (1.0-3.0) % Baso % (Auto) (0.0-1.0) % Add Manual Diff Neutrophils % (Manual) (42-75) % Lymphocytes % (Manual) (20-50) % Monocytes % (Manual) (2-8) % Metamyelocytes % Polychromasia Hypochromasia VBG pH (7.31-7.41) VBG pCO2 (41-51) mmHg VBG pO2 (35-42) mmHg VBG HCO3 (19-25) mmol/l VBG O2 Saturation (60-80) % VBG Base Excess ((-2)-(+3)) mmol/l O2 Delivery Device Sodium (136-145) mmol/L Potassium (3.5-5.1) mmol/L Chloride (98-107) mmol/L Carbon Dioxide (21-32) mmol/L Anion Gap (7-13) mEq/L BUN (7-18) mg/dL Creatinine (0.55-1.02) mg/dL Est Cr Clr Drug Dosing Estimated GFR (MDRD) BUN/Creatinine Ratio (No establ ref range) Glucose (70-99) mg/dL POC Glucose 596 H* > 600 H* 565 H* (70-99) mg/dL Lactic Acid (0.4-2.0) mmol/L Calcium (8.5-10.1) mg/dL Phosphorus (2.6-4.7) mg/dL Magnesium (1.8-2.4) mg/dL Total Bilirubin (0.2-1.0) mg/dL AST (15-37) U/L ALT (14-59) U/L Alkaline Phosphatase (46-116) U/L Creatine Kinase (16-191) U/L Troponin I High Sens (<=51) pg/mL C-Reactive Protein (0.0-0.9) mg/dL B-Natriuretic Peptide (0-100) pg/ml Total Protein (6.4-8.2) g/dL Albumin (3.4-5.0) g/dL Globulin Albumin/Globulin Ratio Urine Color (YELLOW) Urine Appearance (CLEAR) Urine pH (5.0-9.0) Ur Specific [place] (1.005-1.030) Urine Protein (NEGATIVE) Urine Glucose (UA) (NEGATIVE) Urine Ketones (NEGATIVE) Urine Occult Blood (NEGATIVE) Urine Nitrite (NEGATIVE) Urine Bilirubin (NEGATIVE) Urine Urobilinogen (0.2-1.0) mg/dL Ur Leukocyte Esterase (NEGATIVE) Urine RBC (0-5) /HPF Urine WBC (0-5/HPF) /HPF Ur Epithelial Cells (NOT SEEN) /HPF Amorphous Sediment (NOT SEEN) /HPF Urine Bacteria (0-FEW/HPF) /HPF Urine Other Ketones SARS-CoV-2 RNA (AYUSH) (NEGATIVE) 02/16/21 02/16/21 02/16/21 Range/Units 17:57 17:57 17:57 WBC 16.1 H (5.0-10.0) 10^3/uL RBC 4.25 (4.2-5.4) 10^6/uL Hgb 9.8 L (12.0-16.0) g/dL Hct 34.1 L (37.0-47.0) % MCV 80.2 (80-100) fL MCH 23.1 L (27.0-34.0) pg MCHC 28.7 L (33.0-35.0) g/dL Plt Count 298 (150-450) 10^3/uL Neut % (Auto) 86.7 H (42.2-75.2) % Lymph % (Auto) 7.7 L (20.5-50.1) % [place] % (Auto) 5.5 (2-8) % Eos % (Auto) 0.0 L (1.0-3.0) % Baso % (Auto) 0.1 (0.0-1.0) % Add Manual Diff Neutrophils % (Manual) (42-75) % Lymphocytes % (Manual) (20-50) % Monocytes % (Manual) (2-8) % Metamyelocytes % Polychromasia Hypochromasia VBG pH (7.31-7.41) VBG pCO2 (41-51) mmHg VBG pO2 (35-42) mmHg VBG HCO3 (19-25) mmol/l VBG O2 Saturation (60-80) % VBG Base Excess ((-2)-(+3)) mmol/l O2 Delivery Device Sodium 134 L (136-145) mmol/L Potassium 4.2 (3.5-5.1) mmol/L Chloride 99 (98-107) mmol/L Carbon Dioxide < 5 L* (21-32) mmol/L Anion Gap 34.03876 H (7-13) mEq/L BUN 34 H (7-18) mg/dL Creatinine 1.87 H (0.55-1.02) mg/dL Est Cr Clr Drug Dosing TNP Estimated GFR (MDRD) 27 BUN/Creatinine Ratio 18.2 (No establ ref range) Glucose 658 H* (70-99) mg/dL POC Glucose (70-99) mg/dL Lactic Acid 1.7 (0.4-2.0) mmol/L Calcium 8.0 L (8.5-10.1) mg/dL Phosphorus 7.1 H (2.6-4.7) mg/dL Magnesium 2.4 (1.8-2.4) mg/dL Total Bilirubin 0.6 (0.2-1.0) mg/dL AST 14 L (15-37) U/L ALT 19 (14-59) U/L Alkaline Phosphatase 193 H (46-116) U/L Creatine Kinase (16-191) U/L Troponin I High Sens 155 H* (<=51) pg/mL C-Reactive Protein (0.0-0.9) mg/dL B-Natriuretic Peptide (0-100) pg/ml Total Protein 6.1 L (6.4-8.2) g/dL Albumin 2.7 L (3.4-5.0) g/dL Globulin 3.4 Albumin/Globulin Ratio 0.79 Urine Color (YELLOW) Urine Appearance (CLEAR) Urine pH (5.0-9.0) Ur Specific [place] (1.005-1.030) Urine Protein (NEGATIVE) Urine Glucose (UA) (NEGATIVE) Urine Ketones (NEGATIVE) Urine Occult Blood (NEGATIVE) Urine Nitrite (NEGATIVE) Urine Bilirubin (NEGATIVE) Urine Urobilinogen (0.2-1.0) mg/dL Ur Leukocyte Esterase (NEGATIVE) Urine RBC (0-5) /HPF Urine WBC (0-5/HPF) /HPF Ur Epithelial Cells (NOT SEEN) /HPF Amorphous Sediment (NOT SEEN) /HPF Urine Bacteria (0-FEW/HPF) /HPF Urine Other Ketones SARS-CoV-2 RNA (AYUSH) (NEGATIVE) 02/16/21 02/16/21 02/16/21 Range/Units 18:00 18:53 20:00 WBC (5.0-10.0) 10^3/uL RBC (4.2-5.4) 10^6/uL Hgb (12.0-16.0) g/dL Hct (37.0-47.0) % MCV (80-100) fL MCH (27.0-34.0) pg MCHC (33.0-35.0) g/dL Plt Count (150-450) 10^3/uL Neut % (Auto) (42.2-75.2) % Lymph % (Auto) (20.5-50.1) % [place] % (Auto) (2-8) % Eos % (Auto) (1.0-3.0) % Baso % (Auto) (0.0-1.0) % Add Manual Diff Neutrophils % (Manual) (42-75) % Lymphocytes % (Manual) (20-50) % Monocytes % (Manual) (2-8) % Metamyelocytes % Polychromasia Hypochromasia VBG pH 6.96 L* (7.31-7.41) VBG pCO2 23 L (41-51) mmHg VBG pO2 49 H (35-42) mmHg VBG HCO3 5 L (19-25) mmol/l VBG O2 Saturation 80.6 H (60-80) % VBG Base Excess -25.9 L ((-2)-(+3)) mmol/l O2 Delivery Device Nasal cannula Sodium 138 (136-145) mmol/L Potassium 3.5 (3.5-5.1) mmol/L Chloride 102 (98-107) mmol/L Carbon Dioxide 8 L* (21-32) mmol/L Anion Gap 31.5 H (7-13) mEq/L BUN 34 H (7-18) mg/dL Creatinine 1.83 H (0.55-1.02) mg/dL Est Cr Clr Drug Dosing 28.21 Estimated GFR (MDRD) 27 BUN/Creatinine Ratio (No establ ref range) Glucose 583 H* (70-99) mg/dL POC Glucose 511 H* (70-99) mg/dL Lactic Acid (0.4-2.0) mmol/L Calcium 7.6 L (8.5-10.1) mg/dL Phosphorus (2.6-4.7) mg/dL Magnesium (1.8-2.4) mg/dL Total Bilirubin (0.2-1.0) mg/dL AST (15-37) U/L ALT (14-59) U/L Alkaline Phosphatase (46-116) U/L Creatine Kinase (16-191) U/L Troponin I High Sens (<=51) pg/mL C-Reactive Protein (0.0-0.9) mg/dL B-Natriuretic Peptide (0-100) pg/ml Total Protein (6.4-8.2) g/dL Albumin (3.4-5.0) g/dL Globulin Albumin/Globulin Ratio Urine Color (YELLOW) Urine Appearance (CLEAR) Urine pH (5.0-9.0) Ur Specific [place] (1.005-1.030) Urine Protein (NEGATIVE) Urine Glucose (UA) (NEGATIVE) Urine Ketones (NEGATIVE) Urine Occult Blood (NEGATIVE) Urine Nitrite (NEGATIVE) Urine Bilirubin (NEGATIVE) Urine Urobilinogen (0.2-1.0) mg/dL Ur Leukocyte Esterase (NEGATIVE) Urine RBC (0-5) /HPF Urine WBC (0-5/HPF) /HPF Ur Epithelial Cells (NOT SEEN) /HPF Amorphous Sediment (NOT SEEN) /HPF Urine Bacteria (0-FEW/HPF) /HPF Urine Other Ketones SARS-CoV-2 RNA (AYUSH) (NEGATIVE) 02/16/21 02/16/21 02/16/21 Range/Units 20:01 20:15 21:10 WBC (5.0-10.0) 10^3/uL RBC (4.2-5.4) 10^6/uL Hgb (12.0-16.0) g/dL Hct (37.0-47.0) % MCV (80-100) fL MCH (27.0-34.0) pg MCHC (33.0-35.0) g/dL Plt Count (150-450) 10^3/uL Neut % (Auto) (42.2-75.2) % Lymph % (Auto) (20.5-50.1) % [place] % (Auto) (2-8) % Eos % (Auto) (1.0-3.0) % Baso % (Auto) (0.0-1.0) % Add Manual Diff Neutrophils % (Manual) (42-75) % Lymphocytes % (Manual) (20-50) % Monocytes % (Manual) (2-8) % Metamyelocytes % Polychromasia Hypochromasia VBG pH 7.11 L* (7.31-7.41) VBG pCO2 23 L (41-51) mmHg VBG pO2 72 H (35-42) mmHg VBG HCO3 7 L (19-25) mmol/l VBG O2 Saturation 94.5 H (60-80) % VBG Base Excess -21.1 L ((-2)-(+3)) mmol/l O2 Delivery Device Nasal cannula Sodium (136-145) mmol/L Potassium (3.5-5.1) mmol/L Chloride (98-107) mmol/L Carbon Dioxide (21-32) mmol/L Anion Gap (7-13) mEq/L BUN (7-18) mg/dL Creatinine (0.55-1.02) mg/dL Est Cr Clr Drug Dosing Estimated GFR (MDRD) BUN/Creatinine Ratio (No establ ref range) Glucose (70-99) mg/dL POC Glucose 475 H* 500 H* (70-99) mg/dL Lactic Acid (0.4-2.0) mmol/L Calcium (8.5-10.1) mg/dL Phosphorus (2.6-4.7) mg/dL Magnesium (1.8-2.4) mg/dL Total Bilirubin (0.2-1.0) mg/dL AST (15-37) U/L ALT (14-59) U/L Alkaline Phosphatase (46-116) U/L Creatine Kinase (16-191) U/L Troponin I High Sens (<=51) pg/mL C-Reactive Protein (0.0-0.9) mg/dL B-Natriuretic Peptide (0-100) pg/ml Total Protein (6.4-8.2) g/dL Albumin (3.4-5.0) g/dL Globulin Albumin/Globulin Ratio Urine Color (YELLOW) Urine Appearance (CLEAR) Urine pH (5.0-9.0) Ur Specific [place] (1.005-1.030) Urine Protein (NEGATIVE) Urine Glucose (UA) (NEGATIVE) Urine Ketones (NEGATIVE) Urine Occult Blood (NEGATIVE) Urine Nitrite (NEGATIVE) Urine Bilirubin (NEGATIVE) Urine Urobilinogen (0.2-1.0) mg/dL Ur Leukocyte Esterase (NEGATIVE) Urine RBC (0-5) /HPF Urine WBC (0-5/HPF) /HPF Ur Epithelial Cells (NOT SEEN) /HPF Amorphous Sediment (NOT SEEN) /HPF Urine Bacteria (0-FEW/HPF) /HPF Urine Other Ketones SARS-CoV-2 RNA (AYUSH) (NEGATIVE) 02/16/21 02/16/21 02/16/21 Range/Units 22:02 23:03 23:05 WBC (5.0-10.0) 10^3/uL RBC (4.2-5.4) 10^6/uL Hgb (12.0-16.0) g/dL Hct (37.0-47.0) % MCV (80-100) fL MCH (27.0-34.0) pg MCHC (33.0-35.0) g/dL Plt Count (150-450) 10^3/uL Neut % (Auto) (42.2-75.2) % Lymph % (Auto) (20.5-50.1) % [place] % (Auto) (2-8) % Eos % (Auto) (1.0-3.0) % Baso % (Auto) (0.0-1.0) % Add Manual Diff Neutrophils % (Manual) (42-75) % Lymphocytes % (Manual) (20-50) % Monocytes % (Manual) (2-8) % Metamyelocytes % Polychromasia Hypochromasia VBG pH 7.29 L (7.31-7.41) VBG pCO2 16 L* (41-51) mmHg VBG pO2 186 H (35-42) mmHg VBG HCO3 7 L (19-25) mmol/l VBG O2 Saturation 99.6 H (60-80) % VBG Base Excess -17.9 L ((-2)-(+3)) mmol/l O2 Delivery Device Nasal cannula Sodium (136-145) mmol/L Potassium (3.5-5.1) mmol/L Chloride (98-107) mmol/L Carbon Dioxide (21-32) mmol/L Anion Gap (7-13) mEq/L BUN (7-18) mg/dL Creatinine (0.55-1.02) mg/dL Est Cr Clr Drug Dosing Estimated GFR (MDRD) BUN/Creatinine Ratio (No establ ref range) Glucose (70-99) mg/dL POC Glucose 445 H* 418 H* (70-99) mg/dL Lactic Acid (0.4-2.0) mmol/L Calcium (8.5-10.1) mg/dL Phosphorus (2.6-4.7) mg/dL Magnesium (1.8-2.4) mg/dL Total Bilirubin (0.2-1.0) mg/dL AST (15-37) U/L ALT (14-59) U/L Alkaline Phosphatase (46-116) U/L Creatine Kinase (16-191) U/L Troponin I High Sens (<=51) pg/mL C-Reactive Protein (0.0-0.9) mg/dL B-Natriuretic Peptide (0-100) pg/ml Total Protein (6.4-8.2) g/dL Albumin (3.4-5.0) g/dL Globulin Albumin/Globulin Ratio Urine Color (YELLOW) Urine Appearance (CLEAR) Urine pH (5.0-9.0) Ur Specific [place] (1.005-1.030) Urine Protein (NEGATIVE) Urine Glucose (UA) (NEGATIVE) Urine Ketones (NEGATIVE) Urine Occult Blood (NEGATIVE) Urine Nitrite (NEGATIVE) Urine Bilirubin (NEGATIVE) Urine Urobilinogen (0.2-1.0) mg/dL Ur Leukocyte Esterase (NEGATIVE) Urine RBC (0-5) /HPF Urine WBC (0-5/HPF) /HPF Ur Epithelial Cells (NOT SEEN) /HPF Amorphous Sediment (NOT SEEN) /HPF Urine Bacteria (0-FEW/HPF) /HPF Urine Other Ketones SARS-CoV-2 RNA (AYUSH) (NEGATIVE) 02/16/21 02/17/21 02/17/21 Range/Units 23:05 00:05 01:12 WBC (5.0-10.0) 10^3/uL RBC (4.2-5.4) 10^6/uL Hgb (12.0-16.0) g/dL Hct (37.0-47.0) % MCV (80-100) fL MCH (27.0-34.0) pg MCHC (33.0-35.0) g/dL Plt Count (150-450) 10^3/uL Neut % (Auto) (42.2-75.2) % Lymph % (Auto) (20.5-50.1) % [place] % (Auto) (2-8) % Eos % (Auto) (1.0-3.0) % Baso % (Auto) (0.0-1.0) % Add Manual Diff Neutrophils % (Manual) (42-75) % Lymphocytes % (Manual) (20-50) % Monocytes % (Manual) (2-8) % Metamyelocytes % Polychromasia Hypochromasia VBG pH (7.31-7.41) VBG pCO2 (41-51) mmHg VBG pO2 (35-42) mmHg VBG HCO3 (19-25) mmol/l VBG O2 Saturation (60-80) % VBG Base Excess ((-2)-(+3)) mmol/l O2 Delivery Device Sodium 138 (136-145) mmol/L Potassium 3.2 L (3.5-5.1) mmol/L Chloride 104 (98-107) mmol/L Carbon Dioxide 10 L (21-32) mmol/L Anion Gap 27.2 H (7-13) mEq/L BUN 35 H (7-18) mg/dL Creatinine 1.86 H (0.55-1.02) mg/dL Est Cr Clr Drug Dosing 27.76 Estimated GFR (MDRD) 27 BUN/Creatinine Ratio (No establ ref range) Glucose 456 H* (70-99) mg/dL POC Glucose 414 H* 325 H (70-99) mg/dL Lactic Acid (0.4-2.0) mmol/L Calcium 7.7 L (8.5-10.1) mg/dL Phosphorus (2.6-4.7) mg/dL Magnesium (1.8-2.4) mg/dL Total Bilirubin (0.2-1.0) mg/dL AST (15-37) U/L ALT (14-59) U/L Alkaline Phosphatase (46-116) U/L Creatine Kinase (16-191) U/L Troponin I High Sens (<=51) pg/mL C-Reactive Protein (0.0-0.9) mg/dL B-Natriuretic Peptide (0-100) pg/ml Total Protein (6.4-8.2) g/dL Albumin (3.4-5.0) g/dL Globulin Albumin/Globulin Ratio Urine Color (YELLOW) Urine Appearance (CLEAR) Urine pH (5.0-9.0) Ur Specific [place] (1.005-1.030) Urine Protein (NEGATIVE) Urine Glucose (UA) (NEGATIVE) Urine Ketones (NEGATIVE) Urine Occult Blood (NEGATIVE) Urine Nitrite (NEGATIVE) Urine Bilirubin (NEGATIVE) Urine Urobilinogen (0.2-1.0) mg/dL Ur Leukocyte Esterase (NEGATIVE) Urine RBC (0-5) /HPF Urine WBC (0-5/HPF) /HPF Ur Epithelial Cells (NOT SEEN) /HPF Amorphous Sediment (NOT SEEN) /HPF Urine Bacteria (0-FEW/HPF) /HPF Urine Other Ketones SARS-CoV-2 RNA (AYUSH) (NEGATIVE) 02/17/21 02/17/21 02/17/21 Range/Units 02:07 03:05 04:05 WBC (5.0-10.0) 10^3/uL RBC (4.2-5.4) 10^6/uL Hgb (12.0-16.0) g/dL Hct (37.0-47.0) % MCV (80-100) fL MCH (27.0-34.0) pg MCHC (33.0-35.0) g/dL Plt Count (150-450) 10^3/uL Neut % (Auto) (42.2-75.2) % Lymph % (Auto) (20.5-50.1) % [place] % (Auto) (2-8) % Eos % (Auto) (1.0-3.0) % Baso % (Auto) (0.0-1.0) % Add Manual Diff Neutrophils % (Manual) (42-75) % Lymphocytes % (Manual) (20-50) % Monocytes % (Manual) (2-8) % Metamyelocytes % Polychromasia Hypochromasia VBG pH (7.31-7.41) VBG pCO2 (41-51) mmHg VBG pO2 (35-42) mmHg VBG HCO3 (19-25) mmol/l VBG O2 Saturation (60-80) % VBG Base Excess ((-2)-(+3)) mmol/l O2 Delivery Device Sodium (136-145) mmol/L Potassium (3.5-5.1) mmol/L Chloride (98-107) mmol/L Carbon Dioxide (21-32) mmol/L Anion Gap (7-13) mEq/L BUN (7-18) mg/dL Creatinine (0.55-1.02) mg/dL Est Cr Clr Drug Dosing Estimated GFR (MDRD) BUN/Creatinine Ratio (No establ ref range) Glucose (70-99) mg/dL POC Glucose 285 H 223 H 199 H (70-99) mg/dL Lactic Acid (0.4-2.0) mmol/L Calcium (8.5-10.1) mg/dL Phosphorus (2.6-4.7) mg/dL Magnesium (1.8-2.4) mg/dL Total Bilirubin (0.2-1.0) mg/dL AST (15-37) U/L ALT (14-59) U/L Alkaline Phosphatase (46-116) U/L Creatine Kinase (16-191) U/L Troponin I High Sens (<=51) pg/mL C-Reactive Protein (0.0-0.9) mg/dL B-Natriuretic Peptide (0-100) pg/ml Total Protein (6.4-8.2) g/dL Albumin (3.4-5.0) g/dL Globulin Albumin/Globulin Ratio Urine Color (YELLOW) Urine Appearance (CLEAR) Urine pH (5.0-9.0) Ur Specific [place] (1.005-1.030) Urine Protein (NEGATIVE) Urine Glucose (UA) (NEGATIVE) Urine Ketones (NEGATIVE) Urine Occult Blood (NEGATIVE) Urine Nitrite (NEGATIVE) Urine Bilirubin (NEGATIVE) Urine Urobilinogen (0.2-1.0) mg/dL Ur Leukocyte Esterase (NEGATIVE) Urine RBC (0-5) /HPF Urine WBC (0-5/HPF) /HPF Ur Epithelial Cells (NOT SEEN) /HPF Amorphous Sediment (NOT SEEN) /HPF Urine Bacteria (0-FEW/HPF) /HPF Urine Other Ketones SARS-CoV-2 RNA (AYUSH) (NEGATIVE) 02/17/21 02/17/21 02/17/21 Range/Units 05:30 05:30 06:09 WBC 14.4 H (5.0-10.0) 10^3/uL RBC 4.10 L (4.2-5.4) 10^6/uL Hgb 9.4 L (12.0-16.0) g/dL Hct 29.6 L (37.0-47.0) % MCV 72.2 L D (80-100) fL MCH 22.9 L (27.0-34.0) pg MCHC 31.8 L (33.0-35.0) g/dL Plt Count 177 D (150-450) 10^3/uL Neut % (Auto) 83.7 H (42.2-75.2) % Lymph % (Auto) 5.1 L (20.5-50.1) % [place] % (Auto) 11.1 H (2-8) % Eos % (Auto) 0.0 L (1.0-3.0) % Baso % (Auto) 0.1 (0.0-1.0) % Add Manual Diff Neutrophils % (Manual) (42-75) % Lymphocytes % (Manual) (20-50) % Monocytes % (Manual) (2-8) % Metamyelocytes % Polychromasia Hypochromasia VBG pH (7.31-7.41) VBG pCO2 (41-51) mmHg VBG pO2 (35-42) mmHg VBG HCO3 (19-25) mmol/l VBG O2 Saturation (60-80) % VBG Base Excess ((-2)-(+3)) mmol/l O2 Delivery Device Sodium 141 (136-145) mmol/L Potassium 3.1 L (3.5-5.1) mmol/L Chloride 107 (98-107) mmol/L Carbon Dioxide 15 L (21-32) mmol/L Anion Gap 22.1 H (7-13) mEq/L BUN 36 H (7-18) mg/dL Creatinine 1.92 H (0.55-1.02) mg/dL Est Cr Clr Drug Dosing 26.89 Estimated GFR (MDRD) 26 BUN/Creatinine Ratio (No establ ref range) Glucose 121 H (70-99) mg/dL POC Glucose 100 H (70-99) mg/dL Lactic Acid (0.4-2.0) mmol/L Calcium 7.9 L (8.5-10.1) mg/dL Phosphorus (2.6-4.7) mg/dL Magnesium (1.8-2.4) mg/dL Total Bilirubin (0.2-1.0) mg/dL AST (15-37) U/L ALT (14-59) U/L Alkaline Phosphatase (46-116) U/L Creatine Kinase (16-191) U/L Troponin I High Sens 3484 H* (<=51) pg/mL C-Reactive Protein (0.0-0.9) mg/dL B-Natriuretic Peptide (0-100) pg/ml Total Protein (6.4-8.2) g/dL Albumin (3.4-5.0) g/dL Globulin Albumin/Globulin Ratio Urine Color (YELLOW) Urine Appearance (CLEAR) Urine pH (5.0-9.0) Ur Specific [place] (1.005-1.030) Urine Protein (NEGATIVE) Urine Glucose (UA) (NEGATIVE) Urine Ketones (NEGATIVE) Urine Occult Blood (NEGATIVE) Urine Nitrite (NEGATIVE) Urine Bilirubin (NEGATIVE) Urine Urobilinogen (0.2-1.0) mg/dL Ur Leukocyte Esterase (NEGATIVE) Urine RBC (0-5) /HPF Urine WBC (0-5/HPF) /HPF Ur Epithelial Cells (NOT SEEN) /HPF Amorphous Sediment (NOT SEEN) /HPF Urine Bacteria (0-FEW/HPF) /HPF Urine Other Ketones SARS-CoV-2 RNA (AYUSH) (NEGATIVE) 02/17/21 02/17/21 02/17/21 Range/Units 07:43 08:13 09:59 WBC (5.0-10.0) 10^3/uL RBC (4.2-5.4) 10^6/uL Hgb (12.0-16.0) g/dL Hct (37.0-47.0) % MCV (80-100) fL MCH (27.0-34.0) pg MCHC (33.0-35.0) g/dL Plt Count (150-450) 10^3/uL Neut % (Auto) (42.2-75.2) % Lymph % (Auto) (20.5-50.1) % [place] % (Auto) (2-8) % Eos % (Auto) (1.0-3.0) % Baso % (Auto) (0.0-1.0) % Add Manual Diff Neutrophils % (Manual) (42-75) % Lymphocytes % (Manual) (20-50) % Monocytes % (Manual) (2-8) % Metamyelocytes % Polychromasia Hypochromasia VBG pH 7.39 (7.31-7.41) VBG pCO2 31 L (41-51) mmHg VBG pO2 44 H (35-42) mmHg VBG HCO3 18 L (19-25) mmol/l VBG O2 Saturation 79.3 (60-80) % VBG Base Excess -5.5 L ((-2)-(+3)) mmol/l O2 Delivery Device Nasal cannula Sodium (136-145) mmol/L Potassium (3.5-5.1) mmol/L Chloride (98-107) mmol/L Carbon Dioxide (21-32) mmol/L Anion Gap (7-13) mEq/L BUN (7-18) mg/dL Creatinine (0.55-1.02) mg/dL Est Cr Clr Drug Dosing Estimated GFR (MDRD) BUN/Creatinine Ratio (No establ ref range) Glucose (70-99) mg/dL POC Glucose 83 105 H (70-99) mg/dL Lactic Acid (0.4-2.0) mmol/L Calcium (8.5-10.1) mg/dL Phosphorus (2.6-4.7) mg/dL Magnesium (1.8-2.4) mg/dL Total Bilirubin (0.2-1.0) mg/dL AST (15-37) U/L ALT (14-59) U/L Alkaline Phosphatase (46-116) U/L Creatine Kinase (16-191) U/L Troponin I High Sens (<=51) pg/mL C-Reactive Protein (0.0-0.9) mg/dL B-Natriuretic Peptide (0-100) pg/ml Total Protein (6.4-8.2) g/dL Albumin (3.4-5.0) g/dL Globulin Albumin/Globulin Ratio Urine Color (YELLOW) Urine Appearance (CLEAR) Urine pH (5.0-9.0) Ur Specific [place] (1.005-1.030) Urine Protein (NEGATIVE) Urine Glucose (UA) (NEGATIVE) Urine Ketones (NEGATIVE) Urine Occult Blood (NEGATIVE) Urine Nitrite (NEGATIVE) Urine Bilirubin (NEGATIVE) Urine Urobilinogen (0.2-1.0) mg/dL Ur Leukocyte Esterase (NEGATIVE) Urine RBC (0-5) /HPF Urine WBC (0-5/HPF) /HPF Ur Epithelial Cells (NOT SEEN) /HPF Amorphous Sediment (NOT SEEN) /HPF Urine Bacteria (0-FEW/HPF) /HPF Urine Other Ketones SARS-CoV-2 RNA (AYUSH) (NEGATIVE) Med Orders - Current: Current Medications Aspirin (Aspirin 81 Mg Tab.Ec) 81 mg PO DAILY [facility]IN Last Admin: 02/17/21 09:40 Dose: 81 mg Documented by: Clopidogrel Bisulfate (Clopidogrel 75 Mg Tab) 75 mg PO DAILY [facility] Last Admin: 02/17/21 09:41 Dose: 75 mg Documented by: Dextrose/Water (50% Dextrose In Water 50 Ml Syringe) 50 ml IVPUSH Q15M PRN PRN Reason: Hypoglycemia Glucagon (Glucagon,Human Recombinant 1 Mg Vial) 1 mg IM Q15M PRN PRN Reason: Hypoglycemia Albumin Human (Buminate 5%) 250 mls @ 250 mls/hr IV ASDIRECTED [facility] Last Admin: 02/16/21 15:01 Dose: 250 mls/hr Documented by: Levofloxacin/Dextrose 500 mg/ (Premix) 100 mls @ 100 mls/hr IV Q24H [facility] Last Admin: 02/16/21 20:54 Dose: 100 mls/hr Documented by: Heparin Sodium/Sodium Chloride (Heparin 25,000 Units In 1/2 Ns 500 Ml) 25,000 units in 500 mls @ 18.768 mls/hr IV TITRATE [facility]; Protocol Last Admin: 02/17/21 08:41 Dose: 12 units/kg/hr, 18.768 mls/hr Documented by: Discontinued Medications Dextrose/Water (50% Dextrose In Water 50 Ml Syringe) 50 ml IVPUSH Q15M PRN PRN Reason: Hypoglycemia Furosemide (Furosemide 20 Mg/2 Ml Vial) 20 mg IVPUSH ONETIME ONE Stop: 02/16/21 15:51 Last Admin: 02/16/21 15:54 Dose: 20 mg Documented by: Glucagon (Glucagon,Human Recombinant 1 Mg Vial) 1 mg IM Q15M PRN PRN Reason: Hypoglycemia Heparin Sodium (Porcine) (Heparin Sodium 5,000 Units/Ml Vial) 4,700 units IV ONETIME ONE Stop: 02/17/21 08:31 Last Admin: 02/17/21 08:34 Dose: 4,700 units Documented by: Sodium Chloride (Normal Saline) 1,000 mls @ 999 mls/hr IV .BOLUS ONE Stop: 02/16/21 15:00 Last Admin: 02/16/21 17:42 Dose: 999 mls/hr Documented by: Sodium Bicarbonate 100 meq/ (Dextrose/Water) 1,100 mls @ 100 mls/hr IV ONETIME ONE Stop: 02/17/21 02:02 Last Admin: 02/16/21 15:18 Dose: 100 mls/hr Documented by: Insulin Regular in 0.9 % NACL (Myxredlin In Ns 100 Unit/100 Ml) 100 unit in 100 mls @ 7.82 mls/hr IV TITRATE [facility]IN; Protocol Sodium Bicarbonate 100 meq/ (Dextrose/Water) 1,100 mls @ 999 mls/hr IV ONETIME ONE Stop: 02/16/21 18:27 Last Admin: 02/16/21 22:50 Dose: Not Given Documented by: Sodium Chloride (Normal Saline) 1,000 mls @ 250 mls/hr IV ASDIRECTED ERIN Insulin Regular in 0.9 % NACL (Myxredlin In Ns 100 Unit/100 Ml) 100 unit in 100 mls @ 7.82 mls/hr IV TITRATE ERIN; Protocol Last Titration: 02/17/21 02:36 Dose: 0 units/kg/hr, 0 mls/hr Documented by: Sodium Chloride (Normal Saline) 1,000 mls @ 1,000 mls/hr IV ASDIRECTED ERIN Stop: 02/16/21 19:59 Last Admin: 02/16/21 19:02 Dose: 1,000 mls/hr Documented by: Potassium Chloride/Sodium Chloride (Normal Saline With 40 Meq Kcl) 1,000 mls @ 250 mls/hr IV ASDIRECTED [facility] Last Admin: 02/17/21 01:48 Dose: 250 mls/hr Documented by: Sodium Bicarbonate 100 meq/ (Dextrose/Water) 1,100 mls @ 150 mls/hr IV ONETIME ONE Stop: 02/17/21 10:39 Last Infusion: 02/17/21 07:55 Dose: 50 mls/hr Documented by: Insulin Glargine (Insulin Glarg,Human.Rec.Analog 100 Unit/Ml) 35 unit SUBCUT ONETIME ONE Stop: 02/17/21 04:13 Last Admin: 02/17/21 04:28 Dose: 35 units Documented by: Insulin Human Lispro (Insulin Lispro 100 Units/Ml 3 Ml Vial) 5 unit SUBCUT ONETIME ONE Stop: 02/17/21 04:15 Last Admin: 02/17/21 04:29 Dose: 5 units Documented by: Insulin Human Regular (Insulin Regular, Human 100 Units/Ml 3 Ml Vial) 5 unit IV ONETIME ONE Stop: 02/16/21 14:22 Last Admin: 02/16/21 14:59 Dose: 5 unit Documented by: Insulin Human Regular (Insulin Regular, Human 100 Units/Ml 3 Ml Vial) 10 unit IV STAT STA Stop: 02/16/21 17:11 Last Admin: 02/16/21 17:19 Dose: 10 units Documented by: Insulin Human Regular (Insulin Regular, Human 100 Units/Ml 3 Ml Vial) 10 unit IV ONETIME ONE Stop: 02/16/21 18:13 Last Admin: 02/16/21 18:14 Dose: 10 units Documented by: Potassium Chloride (Potassium Chloride 10 Meq Tab.Er) 40 meq PO ONETIME ONE Stop: 02/17/21 03:20 Last Admin: 02/17/21 07:20 Dose: Not Given Documented by: Potassium Chloride (Potassium Chloride 10 Meq Tab.Er) 40 meq PO ONETIME ONE Stop: 02/17/21 07:52 Last Admin: 02/17/21 08:43 Dose: 40 meq Documented by: Sodium Bicarbonate (Sodium Bicarbonate 8.4% 50 Meq/50 Ml Syringe) 50 meq IVPUSH ONETIME ONE Stop: 02/16/21 15:04 Last Admin: 02/16/21 15:08 Dose: 50 meq Documented by: Sodium Bicarbonate (Sodium Bicarbonate 8.4% 50 Meq/50 Ml Syringe) 100 meq IVPUSH ONETIME ONE Stop: 02/16/21 17:24 Last Admin: 02/16/21 17:49 Dose: 100 meq Documented by: - Exam Quality Assessment: Supplemental Oxygen Urinary Catheter Total Time: 0Days 1Hours General: Alert, Mild Distress, Lethargic HEENT: EOMI Lungs: Crackles Cardiovascular: Regular Rate, Regular Rhythm GI/Abdominal Exam: Soft, Non-Tender (Female) Exam: Other (flores in place. minimal urine in bag) Extremities: Pedal Edema Skin: Warm, Dry Neurological: No New Focal Deficit, Other (still lethergic but easliy arrousable) Psy/Mental Status: Alert #1 Interpretation EKG Date: 02/17/21 Rhythm: NSR Catarina: LAD-Left Catarina Deviation P-Wave: Present QRS: Normal ST-T: Other (inverted T waves from V2-V6 new from 03/19/2021 20.15) - Patient Data Lab Results Last 24 hrs: Laboratory Results - last 24 hr 02/16/21 02/16/21 02/16/21 Range/Units 13:32 13:53 14:03 WBC (5.0-10.0) 10^3/uL RBC (4.2-5.4) 10^6/uL Hgb (12.0-16.0) g/dL Hct (37.0-47.0) % MCV (80-100) fL MCH (27.0-34.0) pg MCHC (33.0-35.0) g/dL Plt Count (150-450) 10^3/uL Neut % (Auto) (42.2-75.2) % Lymph % (Auto) (20.5-50.1) % [place] % (Auto) (2-8) % Eos % (Auto) (1.0-3.0) % Baso % (Auto) (0.0-1.0) % Add Manual Diff Neutrophils % (Manual) (42-75) % Lymphocytes % (Manual) (20-50) % Monocytes % (Manual) (2-8) % Metamyelocytes % Polychromasia Hypochromasia VBG pH (7.31-7.41) VBG pCO2 (41-51) mmHg VBG pO2 (35-42) mmHg VBG HCO3 (19-25) mmol/l VBG O2 Saturation (60-80) % VBG Base Excess ((-2)-(+3)) mmol/l O2 Delivery Device Sodium (136-145) mmol/L Potassium (3.5-5.1) mmol/L Chloride (98-107) mmol/L Carbon Dioxide (21-32) mmol/L Anion Gap (7-13) mEq/L BUN (7-18) mg/dL Creatinine (0.55-1.02) mg/dL Est Cr Clr Drug Dosing Estimated GFR (MDRD) BUN/Creatinine Ratio (No establ ref range) Glucose (70-99) mg/dL POC Glucose > 600 H* (70-99) mg/dL Lactic Acid (0.4-2.0) mmol/L Calcium (8.5-10.1) mg/dL Phosphorus (2.6-4.7) mg/dL Magnesium (1.8-2.4) mg/dL Total Bilirubin (0.2-1.0) mg/dL AST (15-37) U/L ALT (14-59) U/L Alkaline Phosphatase (46-116) U/L Creatine Kinase (16-191) U/L Troponin I High Sens (<=51) pg/mL C-Reactive Protein (0.0-0.9) mg/dL B-Natriuretic Peptide (0-100) pg/ml Total Protein (6.4-8.2) g/dL Albumin (3.4-5.0) g/dL Globulin Albumin/Globulin Ratio Urine Color Dark yellow (YELLOW) Urine Appearance Turbid (CLEAR) Urine pH 5.0 (5.0-9.0) Ur Specific [place] >= 1.030 (1.005-1.030) Urine Protein >=300 H (NEGATIVE) Urine Glucose (UA) 500 H (NEGATIVE) Urine Ketones Trace H (NEGATIVE) Urine Occult Blood Small H (NEGATIVE) Urine Nitrite Negative (NEGATIVE) Urine Bilirubin Moderate H (NEGATIVE) Urine Urobilinogen 1.0 (0.2-1.0) mg/dL Ur Leukocyte Esterase Trace H (NEGATIVE) Urine RBC 0-5 (0-5) /HPF Urine WBC 0-5 (0-5/HPF) /HPF Ur Epithelial Cells Many H (NOT SEEN) /HPF Amorphous Sediment Many H (NOT SEEN) /HPF Urine Bacteria See note (0-FEW/HPF) /HPF Urine Other See note Ketones SARS-CoV-2 RNA (AYUSH) Negative (NEGATIVE) 02/16/21 02/16/21 02/16/21 Range/Units 14:19 14:19 14:19 WBC 10.7 H (5.0-10.0) 10^3/uL RBC 4.64 (4.2-5.4) 10^6/uL Hgb 10.7 L (12.0-16.0) g/dL Hct 37.8 (37.0-47.0) % MCV 81.5 D (80-100) fL MCH 23.1 L (27.0-34.0) pg MCHC 28.3 L (33.0-35.0) g/dL Plt Count 330 (150-450) 10^3/uL Neut % (Auto) 86.3 H (42.2-75.2) % Lymph % (Auto) 5.0 L (20.5-50.1) % [place] % (Auto) 8.6 H (2-8) % Eos % (Auto) 0.0 L (1.0-3.0) % Baso % (Auto) 0.1 (0.0-1.0) % Add Manual Diff Yes Neutrophils % (Manual) 90 H (42-75) % Lymphocytes % (Manual) 4 L (20-50) % Monocytes % (Manual) 3 (2-8) % Metamyelocytes % 3 Polychromasia 1+ slight Hypochromasia 1+ slight VBG pH (7.31-7.41) VBG pCO2 (41-51) mmHg VBG pO2 (35-42) mmHg VBG HCO3 (19-25) mmol/l VBG O2 Saturation (60-80) % VBG Base Excess ((-2)-(+3)) mmol/l O2 Delivery Device Sodium 133 L (136-145) mmol/L Potassium 5.0 D (3.5-5.1) mmol/L Chloride 97 L (98-107) mmol/L Carbon Dioxide < 5 L* D (21-32) mmol/L Anion Gap 36.81454 H (7-13) mEq/L BUN 33 H (7-18) mg/dL Creatinine 1.81 H (0.55-1.02) mg/dL Est Cr Clr Drug Dosing TNP Estimated GFR (MDRD) 28 BUN/Creatinine Ratio 18.2 (No establ ref range) Glucose 718 H* (70-99) mg/dL POC Glucose (70-99) mg/dL Lactic Acid (0.4-2.0) mmol/L Calcium 8.5 (8.5-10.1) mg/dL Phosphorus (2.6-4.7) mg/dL Magnesium 2.6 H (1.8-2.4) mg/dL Total Bilirubin 0.6 (0.2-1.0) mg/dL AST 13 L (15-37) U/L ALT 20 (14-59) U/L Alkaline Phosphatase 210 H (46-116) U/L Creatine Kinase 220 H (16-191) U/L Troponin I High Sens 74 H* (<=51) pg/mL C-Reactive Protein 2.9 H (0.0-0.9) mg/dL B-Natriuretic Peptide (0-100) pg/ml Total Protein 6.7 (6.4-8.2) g/dL Albumin 2.9 L (3.4-5.0) g/dL Globulin 3.8 Albumin/Globulin Ratio 0.76 Urine Color (YELLOW) Urine Appearance (CLEAR) Urine pH (5.0-9.0) Ur Specific [place] (1.005-1.030) Urine Protein (NEGATIVE) Urine Glucose (UA) (NEGATIVE) Urine Ketones (NEGATIVE) Urine Occult Blood (NEGATIVE) Urine Nitrite (NEGATIVE) Urine Bilirubin (NEGATIVE) Urine Urobilinogen (0.2-1.0) mg/dL Ur Leukocyte Esterase (NEGATIVE) Urine RBC (0-5) /HPF Urine WBC (0-5/HPF) /HPF Ur Epithelial Cells (NOT SEEN) /HPF Amorphous Sediment (NOT SEEN) /HPF Urine Bacteria (0-FEW/HPF) /HPF Urine Other Ketones Moderate-40 mg/dl SARS-CoV-2 RNA (AYUSH) (NEGATIVE) 02/16/21 02/16/21 02/16/21 Range/Units 14:19 14:19 15:40 WBC (5.0-10.0) 10^3/uL RBC (4.2-5.4) 10^6/uL Hgb (12.0-16.0) g/dL Hct (37.0-47.0) % MCV (80-100) fL MCH (27.0-34.0) pg MCHC (33.0-35.0) g/dL Plt Count (150-450) 10^3/uL Neut % (Auto) (42.2-75.2) % Lymph % (Auto) (20.5-50.1) % [place] % (Auto) (2-8) % Eos % (Auto) (1.0-3.0) % Baso % (Auto) (0.0-1.0) % Add Manual Diff Neutrophils % (Manual) (42-75) % Lymphocytes % (Manual) (20-50) % Monocytes % (Manual) (2-8) % Metamyelocytes % Polychromasia Hypochromasia VBG pH (7.31-7.41) VBG pCO2 (41-51) mmHg VBG pO2 (35-42) mmHg VBG HCO3 (19-25) mmol/l VBG O2 Saturation (60-80) % VBG Base Excess ((-2)-(+3)) mmol/l O2 Delivery Device Sodium (136-145) mmol/L Potassium (3.5-5.1) mmol/L Chloride (98-107) mmol/L Carbon Dioxide (21-32) mmol/L Anion Gap (7-13) mEq/L BUN (7-18) mg/dL Creatinine (0.55-1.02) mg/dL Est Cr Clr Drug Dosing Estimated GFR (MDRD) BUN/Creatinine Ratio (No establ ref range) Glucose (70-99) mg/dL POC Glucose > 600 H* (70-99) mg/dL Lactic Acid 1.3 (0.4-2.0) mmol/L Calcium (8.5-10.1) mg/dL Phosphorus (2.6-4.7) mg/dL Magnesium (1.8-2.4) mg/dL Total Bilirubin (0.2-1.0) mg/dL AST (15-37) U/L ALT (14-59) U/L Alkaline Phosphatase (46-116) U/L Creatine Kinase (16-191) U/L Troponin I High Sens (<=51) pg/mL C-Reactive Protein (0.0-0.9) mg/dL B-Natriuretic Peptide 2430 H (0-100) pg/ml Total Protein (6.4-8.2) g/dL Albumin (3.4-5.0) g/dL Globulin Albumin/Globulin Ratio Urine Color (YELLOW) Urine Appearance (CLEAR) Urine pH (5.0-9.0) Ur Specific [place] (1.005-1.030) Urine Protein (NEGATIVE) Urine Glucose (UA) (NEGATIVE) Urine Ketones (NEGATIVE) Urine Occult Blood (NEGATIVE) Urine Nitrite (NEGATIVE) Urine Bilirubin (NEGATIVE) Urine Urobilinogen (0.2-1.0) mg/dL Ur Leukocyte Esterase (NEGATIVE) Urine RBC (0-5) /HPF Urine WBC (0-5/HPF) /HPF Ur Epithelial Cells (NOT SEEN) /HPF Amorphous Sediment (NOT SEEN) /HPF Urine Bacteria (0-FEW/HPF) /HPF Urine Other Ketones SARS-CoV-2 RNA (AYUSH) (NEGATIVE) 02/16/21 02/16/21 02/16/21 Range/Units 16:10 16:56 17:48 WBC (5.0-10.0) 10^3/uL RBC (4.2-5.4) 10^6/uL Hgb (12.0-16.0) g/dL Hct (37.0-47.0) % MCV (80-100) fL MCH (27.0-34.0) pg MCHC (33.0-35.0) g/dL Plt Count (150-450) 10^3/uL Neut % (Auto) (42.2-75.2) % Lymph % (Auto) (20.5-50.1) % [place] % (Auto) (2-8) % Eos % (Auto) (1.0-3.0) % Baso % (Auto) (0.0-1.0) % Add Manual Diff Neutrophils % (Manual) (42-75) % Lymphocytes % (Manual) (20-50) % Monocytes % (Manual) (2-8) % Metamyelocytes % Polychromasia Hypochromasia VBG pH (7.31-7.41) VBG pCO2 (41-51) mmHg VBG pO2 (35-42) mmHg VBG HCO3 (19-25) mmol/l VBG O2 Saturation (60-80) % VBG Base Excess ((-2)-(+3)) mmol/l O2 Delivery Device Sodium (136-145) mmol/L Potassium (3.5-5.1) mmol/L Chloride (98-107) mmol/L Carbon Dioxide (21-32) mmol/L Anion Gap (7-13) mEq/L BUN (7-18) mg/dL Creatinine (0.55-1.02) mg/dL Est Cr Clr Drug Dosing Estimated GFR (MDRD) BUN/Creatinine Ratio (No establ ref range) Glucose (70-99) mg/dL POC Glucose 596 H* > 600 H* 565 H* (70-99) mg/dL Lactic Acid (0.4-2.0) mmol/L Calcium (8.5-10.1) mg/dL Phosphorus (2.6-4.7) mg/dL Magnesium (1.8-2.4) mg/dL Total Bilirubin (0.2-1.0) mg/dL AST (15-37) U/L ALT (14-59) U/L Alkaline Phosphatase (46-116) U/L Creatine Kinase (16-191) U/L Troponin I High Sens (<=51) pg/mL C-Reactive Protein (0.0-0.9) mg/dL B-Natriuretic Peptide (0-100) pg/ml Total Protein (6.4-8.2) g/dL Albumin (3.4-5.0) g/dL Globulin Albumin/Globulin Ratio Urine Color (YELLOW) Urine Appearance (CLEAR) Urine pH (5.0-9.0) Ur Specific [place] (1.005-1.030) Urine Protein (NEGATIVE) Urine Glucose (UA) (NEGATIVE) Urine Ketones (NEGATIVE) Urine Occult Blood (NEGATIVE) Urine Nitrite (NEGATIVE) Urine Bilirubin (NEGATIVE) Urine Urobilinogen (0.2-1.0) mg/dL Ur Leukocyte Esterase (NEGATIVE) Urine RBC (0-5) /HPF Urine WBC (0-5/HPF) /HPF Ur Epithelial Cells (NOT SEEN) /HPF Amorphous Sediment (NOT SEEN) /HPF Urine Bacteria (0-FEW/HPF) /HPF Urine Other Ketones SARS-CoV-2 RNA (AYUSH) (NEGATIVE) 02/16/21 02/16/21 02/16/21 Range/Units 17:57 17:57 17:57 WBC 16.1 H (5.0-10.0) 10^3/uL RBC 4.25 (4.2-5.4) 10^6/uL Hgb 9.8 L (12.0-16.0) g/dL Hct 34.1 L (37.0-47.0) % MCV 80.2 (80-100) fL MCH 23.1 L (27.0-34.0) pg MCHC 28.7 L (33.0-35.0) g/dL Plt Count 298 (150-450) 10^3/uL Neut % (Auto) 86.7 H (42.2-75.2) % Lymph % (Auto) 7.7 L (20.5-50.1) % [place] % (Auto) 5.5 (2-8) % Eos % (Auto) 0.0 L (1.0-3.0) % Baso % (Auto) 0.1 (0.0-1.0) % Add Manual Diff Neutrophils % (Manual) (42-75) % Lymphocytes % (Manual) (20-50) % Monocytes % (Manual) (2-8) % Metamyelocytes % Polychromasia Hypochromasia VBG pH (7.31-7.41) VBG pCO2 (41-51) mmHg VBG pO2 (35-42) mmHg VBG HCO3 (19-25) mmol/l VBG O2 Saturation (60-80) % VBG Base Excess ((-2)-(+3)) mmol/l O2 Delivery Device Sodium 134 L (136-145) mmol/L Potassium 4.2 (3.5-5.1) mmol/L Chloride 99 (98-107) mmol/L Carbon Dioxide < 5 L* (21-32) mmol/L Anion Gap 34.93419 H (7-13) mEq/L BUN 34 H (7-18) mg/dL Creatinine 1.87 H (0.55-1.02) mg/dL Est Cr Clr Drug Dosing TNP Estimated GFR (MDRD) 27 BUN/Creatinine Ratio 18.2 (No establ ref range) Glucose 658 H* (70-99) mg/dL POC Glucose (70-99) mg/dL Lactic Acid 1.7 (0.4-2.0) mmol/L Calcium 8.0 L (8.5-10.1) mg/dL Phosphorus 7.1 H (2.6-4.7) mg/dL Magnesium 2.4 (1.8-2.4) mg/dL Total Bilirubin 0.6 (0.2-1.0) mg/dL AST 14 L (15-37) U/L ALT 19 (14-59) U/L Alkaline Phosphatase 193 H (46-116) U/L Creatine Kinase (16-191) U/L Troponin I High Sens 155 H* (<=51) pg/mL C-Reactive Protein (0.0-0.9) mg/dL B-Natriuretic Peptide (0-100) pg/ml Total Protein 6.1 L (6.4-8.2) g/dL Albumin 2.7 L (3.4-5.0) g/dL Globulin 3.4 Albumin/Globulin Ratio 0.79 Urine Color (YELLOW) Urine Appearance (CLEAR) Urine pH (5.0-9.0) Ur Specific [place] (1.005-1.030) Urine Protein (NEGATIVE) Urine Glucose (UA) (NEGATIVE) Urine Ketones (NEGATIVE) Urine Occult Blood (NEGATIVE) Urine Nitrite (NEGATIVE) Urine Bilirubin (NEGATIVE) Urine Urobilinogen (0.2-1.0) mg/dL Ur Leukocyte Esterase (NEGATIVE) Urine RBC (0-5) /HPF Urine WBC (0-5/HPF) /HPF Ur Epithelial Cells (NOT SEEN) /HPF Amorphous Sediment (NOT SEEN) /HPF Urine Bacteria (0-FEW/HPF) /HPF Urine Other Ketones SARS-CoV-2 RNA (AYUSH) (NEGATIVE) 02/16/21 02/16/21 02/16/21 Range/Units 18:00 18:53 20:00 WBC (5.0-10.0) 10^3/uL RBC (4.2-5.4) 10^6/uL Hgb (12.0-16.0) g/dL Hct (37.0-47.0) % MCV (80-100) fL MCH (27.0-34.0) pg MCHC (33.0-35.0) g/dL Plt Count (150-450) 10^3/uL Neut % (Auto) (42.2-75.2) % Lymph % (Auto) (20.5-50.1) % [place] % (Auto) (2-8) % Eos % (Auto) (1.0-3.0) % Baso % (Auto) (0.0-1.0) % Add Manual Diff Neutrophils % (Manual) (42-75) % Lymphocytes % (Manual) (20-50) % Monocytes % (Manual) (2-8) % Metamyelocytes % Polychromasia Hypochromasia VBG pH 6.96 L* (7.31-7.41) VBG pCO2 23 L (41-51) mmHg VBG pO2 49 H (35-42) mmHg VBG HCO3 5 L (19-25) mmol/l VBG O2 Saturation 80.6 H (60-80) % VBG Base Excess -25.9 L ((-2)-(+3)) mmol/l O2 Delivery Device Nasal cannula Sodium 138 (136-145) mmol/L Potassium 3.5 (3.5-5.1) mmol/L Chloride 102 (98-107) mmol/L Carbon Dioxide 8 L* (21-32) mmol/L Anion Gap 31.5 H (7-13) mEq/L BUN 34 H (7-18) mg/dL Creatinine 1.83 H (0.55-1.02) mg/dL Est Cr Clr Drug Dosing 28.21 Estimated GFR (MDRD) 27 BUN/Creatinine Ratio (No establ ref range) Glucose 583 H* (70-99) mg/dL POC Glucose 511 H* (70-99) mg/dL Lactic Acid (0.4-2.0) mmol/L Calcium 7.6 L (8.5-10.1) mg/dL Phosphorus (2.6-4.7) mg/dL Magnesium (1.8-2.4) mg/dL Total Bilirubin (0.2-1.0) mg/dL AST (15-37) U/L ALT (14-59) U/L Alkaline Phosphatase (46-116) U/L Creatine Kinase (16-191) U/L Troponin I High Sens (<=51) pg/mL C-Reactive Protein (0.0-0.9) mg/dL B-Natriuretic Peptide (0-100) pg/ml Total Protein (6.4-8.2) g/dL Albumin (3.4-5.0) g/dL Globulin Albumin/Globulin Ratio Urine Color (YELLOW) Urine Appearance (CLEAR) Urine pH (5.0-9.0) Ur Specific [place] (1.005-1.030) Urine Protein (NEGATIVE) Urine Glucose (UA) (NEGATIVE) Urine Ketones (NEGATIVE) Urine Occult Blood (NEGATIVE) Urine Nitrite (NEGATIVE) Urine Bilirubin (NEGATIVE) Urine Urobilinogen (0.2-1.0) mg/dL Ur Leukocyte Esterase (NEGATIVE) Urine RBC (0-5) /HPF Urine WBC (0-5/HPF) /HPF Ur Epithelial Cells (NOT SEEN) /HPF Amorphous Sediment (NOT SEEN) /HPF Urine Bacteria (0-FEW/HPF) /HPF Urine Other Ketones SARS-CoV-2 RNA (AYUSH) (NEGATIVE) 02/16/21 02/16/21 02/16/21 Range/Units 20:01 20:15 21:10 WBC (5.0-10.0) 10^3/uL RBC (4.2-5.4) 10^6/uL Hgb (12.0-16.0) g/dL Hct (37.0-47.0) % MCV (80-100) fL MCH (27.0-34.0) pg MCHC (33.0-35.0) g/dL Plt Count (150-450) 10^3/uL Neut % (Auto) (42.2-75.2) % Lymph % (Auto) (20.5-50.1) % [place] % (Auto) (2-8) % Eos % (Auto) (1.0-3.0) % Baso % (Auto) (0.0-1.0) % Add Manual Diff Neutrophils % (Manual) (42-75) % Lymphocytes % (Manual) (20-50) % Monocytes % (Manual) (2-8) % Metamyelocytes % Polychromasia Hypochromasia VBG pH 7.11 L* (7.31-7.41) VBG pCO2 23 L (41-51) mmHg VBG pO2 72 H (35-42) mmHg VBG HCO3 7 L (19-25) mmol/l VBG O2 Saturation 94.5 H (60-80) % VBG Base Excess -21.1 L ((-2)-(+3)) mmol/l O2 Delivery Device Nasal cannula Sodium (136-145) mmol/L Potassium (3.5-5.1) mmol/L Chloride (98-107) mmol/L Carbon Dioxide (21-32) mmol/L Anion Gap (7-13) mEq/L BUN (7-18) mg/dL Creatinine (0.55-1.02) mg/dL Est Cr Clr Drug Dosing Estimated GFR (MDRD) BUN/Creatinine Ratio (No establ ref range) Glucose (70-99) mg/dL POC Glucose 475 H* 500 H* (70-99) mg/dL Lactic Acid (0.4-2.0) mmol/L Calcium (8.5-10.1) mg/dL Phosphorus (2.6-4.7) mg/dL Magnesium (1.8-2.4) mg/dL Total Bilirubin (0.2-1.0) mg/dL AST (15-37) U/L ALT (14-59) U/L Alkaline Phosphatase (46-116) U/L Creatine Kinase (16-191) U/L Troponin I High Sens (<=51) pg/mL C-Reactive Protein (0.0-0.9) mg/dL B-Natriuretic Peptide (0-100) pg/ml Total Protein (6.4-8.2) g/dL Albumin (3.4-5.0) g/dL Globulin Albumin/Globulin Ratio Urine Color (YELLOW) Urine Appearance (CLEAR) Urine pH (5.0-9.0) Ur Specific [place] (1.005-1.030) Urine Protein (NEGATIVE) Urine Glucose (UA) (NEGATIVE) Urine Ketones (NEGATIVE) Urine Occult Blood (NEGATIVE) Urine Nitrite (NEGATIVE) Urine Bilirubin (NEGATIVE) Urine Urobilinogen (0.2-1.0) mg/dL Ur Leukocyte Esterase (NEGATIVE) Urine RBC (0-5) /HPF Urine WBC (0-5/HPF) /HPF Ur Epithelial Cells (NOT SEEN) /HPF Amorphous Sediment (NOT SEEN) /HPF Urine Bacteria (0-FEW/HPF) /HPF Urine Other Ketones SARS-CoV-2 RNA (AYUSH) (NEGATIVE) 02/16/21 02/16/21 02/16/21 Range/Units 22:02 23:03 23:05 WBC (5.0-10.0) 10^3/uL RBC (4.2-5.4) 10^6/uL Hgb (12.0-16.0) g/dL Hct (37.0-47.0) % MCV (80-100) fL MCH (27.0-34.0) pg MCHC (33.0-35.0) g/dL Plt Count (150-450) 10^3/uL Neut % (Auto) (42.2-75.2) % Lymph % (Auto) (20.5-50.1) % [place] % (Auto) (2-8) % Eos % (Auto) (1.0-3.0) % Baso % (Auto) (0.0-1.0) % Add Manual Diff Neutrophils % (Manual) (42-75) % Lymphocytes % (Manual) (20-50) % Monocytes % (Manual) (2-8) % Metamyelocytes % Polychromasia Hypochromasia VBG pH 7.29 L (7.31-7.41) VBG pCO2 16 L* (41-51) mmHg VBG pO2 186 H (35-42) mmHg VBG HCO3 7 L (19-25) mmol/l VBG O2 Saturation 99.6 H (60-80) % VBG Base Excess -17.9 L ((-2)-(+3)) mmol/l O2 Delivery Device Nasal cannula Sodium (136-145) mmol/L Potassium (3.5-5.1) mmol/L Chloride (98-107) mmol/L Carbon Dioxide (21-32) mmol/L Anion Gap (7-13) mEq/L BUN (7-18) mg/dL Creatinine (0.55-1.02) mg/dL Est Cr Clr Drug Dosing Estimated GFR (MDRD) BUN/Creatinine Ratio (No establ ref range) Glucose (70-99) mg/dL POC Glucose 445 H* 418 H* (70-99) mg/dL Lactic Acid (0.4-2.0) mmol/L Calcium (8.5-10.1) mg/dL Phosphorus (2.6-4.7) mg/dL Magnesium (1.8-2.4) mg/dL Total Bilirubin (0.2-1.0) mg/dL AST (15-37) U/L ALT (14-59) U/L Alkaline Phosphatase (46-116) U/L Creatine Kinase (16-191) U/L Troponin I High Sens (<=51) pg/mL C-Reactive Protein (0.0-0.9) mg/dL B-Natriuretic Peptide (0-100) pg/ml Total Protein (6.4-8.2) g/dL Albumin (3.4-5.0) g/dL Globulin Albumin/Globulin Ratio Urine Color (YELLOW) Urine Appearance (CLEAR) Urine pH (5.0-9.0) Ur Specific [place] (1.005-1.030) Urine Protein (NEGATIVE) Urine Glucose (UA) (NEGATIVE) Urine Ketones (NEGATIVE) Urine Occult Blood (NEGATIVE) Urine Nitrite (NEGATIVE) Urine Bilirubin (NEGATIVE) Urine Urobilinogen (0.2-1.0) mg/dL Ur Leukocyte Esterase (NEGATIVE) Urine RBC (0-5) /HPF Urine WBC (0-5/HPF) /HPF Ur Epithelial Cells (NOT SEEN) /HPF Amorphous Sediment (NOT SEEN) /HPF Urine Bacteria (0-FEW/HPF) /HPF Urine Other Ketones SARS-CoV-2 RNA (AYUSH) (NEGATIVE) 02/16/21 02/17/21 02/17/21 Range/Units 23:05 00:05 01:12 WBC (5.0-10.0) 10^3/uL RBC (4.2-5.4) 10^6/uL Hgb (12.0-16.0) g/dL Hct (37.0-47.0) % MCV (80-100) fL MCH (27.0-34.0) pg MCHC (33.0-35.0) g/dL Plt Count (150-450) 10^3/uL Neut % (Auto) (42.2-75.2) % Lymph % (Auto) (20.5-50.1) % [place] % (Auto) (2-8) % Eos % (Auto) (1.0-3.0) % Baso % (Auto) (0.0-1.0) % Add Manual Diff Neutrophils % (Manual) (42-75) % Lymphocytes % (Manual) (20-50) % Monocytes % (Manual) (2-8) % Metamyelocytes % Polychromasia Hypochromasia VBG pH (7.31-7.41) VBG pCO2 (41-51) mmHg VBG pO2 (35-42) mmHg VBG HCO3 (19-25) mmol/l VBG O2 Saturation (60-80) % VBG Base Excess ((-2)-(+3)) mmol/l O2 Delivery Device Sodium 138 (136-145) mmol/L Potassium 3.2 L (3.5-5.1) mmol/L Chloride 104 (98-107) mmol/L Carbon Dioxide 10 L (21-32) mmol/L Anion Gap 27.2 H (7-13) mEq/L BUN 35 H (7-18) mg/dL Creatinine 1.86 H (0.55-1.02) mg/dL Est Cr Clr Drug Dosing 27.76 Estimated GFR (MDRD) 27 BUN/Creatinine Ratio (No establ ref range) Glucose 456 H* (70-99) mg/dL POC Glucose 414 H* 325 H (70-99) mg/dL Lactic Acid (0.4-2.0) mmol/L Calcium 7.7 L (8.5-10.1) mg/dL Phosphorus (2.6-4.7) mg/dL Magnesium (1.8-2.4) mg/dL Total Bilirubin (0.2-1.0) mg/dL AST (15-37) U/L ALT (14-59) U/L Alkaline Phosphatase (46-116) U/L Creatine Kinase (16-191) U/L Troponin I High Sens (<=51) pg/mL C-Reactive Protein (0.0-0.9) mg/dL B-Natriuretic Peptide (0-100) pg/ml Total Protein (6.4-8.2) g/dL Albumin (3.4-5.0) g/dL Globulin Albumin/Globulin Ratio Urine Color (YELLOW) Urine Appearance (CLEAR) Urine pH (5.0-9.0) Ur Specific [place] (1.005-1.030) Urine Protein (NEGATIVE) Urine Glucose (UA) (NEGATIVE) Urine Ketones (NEGATIVE) Urine Occult Blood (NEGATIVE) Urine Nitrite (NEGATIVE) Urine Bilirubin (NEGATIVE) Urine Urobilinogen (0.2-1.0) mg/dL Ur Leukocyte Esterase (NEGATIVE) Urine RBC (0-5) /HPF Urine WBC (0-5/HPF) /HPF Ur Epithelial Cells (NOT SEEN) /HPF Amorphous Sediment (NOT SEEN) /HPF Urine Bacteria (0-FEW/HPF) /HPF Urine Other Ketones SARS-CoV-2 RNA (AYUSH) (NEGATIVE) 02/17/21 02/17/21 02/17/21 Range/Units 02:07 03:05 04:05 WBC (5.0-10.0) 10^3/uL RBC (4.2-5.4) 10^6/uL Hgb (12.0-16.0) g/dL Hct (37.0-47.0) % MCV (80-100) fL MCH (27.0-34.0) pg MCHC (33.0-35.0) g/dL Plt Count (150-450) 10^3/uL Neut % (Auto) (42.2-75.2) % Lymph % (Auto) (20.5-50.1) % [place] % (Auto) (2-8) % Eos % (Auto) (1.0-3.0) % Baso % (Auto) (0.0-1.0) % Add Manual Diff Neutrophils % (Manual) (42-75) % Lymphocytes % (Manual) (20-50) % Monocytes % (Manual) (2-8) % Metamyelocytes % Polychromasia Hypochromasia VBG pH (7.31-7.41) VBG pCO2 (41-51) mmHg VBG pO2 (35-42) mmHg VBG HCO3 (19-25) mmol/l VBG O2 Saturation (60-80) % VBG Base Excess ((-2)-(+3)) mmol/l O2 Delivery Device Sodium (136-145) mmol/L Potassium (3.5-5.1) mmol/L Chloride (98-107) mmol/L Carbon Dioxide (21-32) mmol/L Anion Gap (7-13) mEq/L BUN (7-18) mg/dL Creatinine (0.55-1.02) mg/dL Est Cr Clr Drug Dosing Estimated GFR (MDRD) BUN/Creatinine Ratio (No establ ref range) Glucose (70-99) mg/dL POC Glucose 285 H 223 H 199 H (70-99) mg/dL Lactic Acid (0.4-2.0) mmol/L Calcium (8.5-10.1) mg/dL Phosphorus (2.6-4.7) mg/dL Magnesium (1.8-2.4) mg/dL Total Bilirubin (0.2-1.0) mg/dL AST (15-37) U/L ALT (14-59) U/L Alkaline Phosphatase (46-116) U/L Creatine Kinase (16-191) U/L Troponin I High Sens (<=51) pg/mL C-Reactive Protein (0.0-0.9) mg/dL B-Natriuretic Peptide (0-100) pg/ml Total Protein (6.4-8.2) g/dL Albumin (3.4-5.0) g/dL Globulin Albumin/Globulin Ratio Urine Color (YELLOW) Urine Appearance (CLEAR) Urine pH (5.0-9.0) Ur Specific [place] (1.005-1.030) Urine Protein (NEGATIVE) Urine Glucose (UA) (NEGATIVE) Urine Ketones (NEGATIVE) Urine Occult Blood (NEGATIVE) Urine Nitrite (NEGATIVE) Urine Bilirubin (NEGATIVE) Urine Urobilinogen (0.2-1.0) mg/dL Ur Leukocyte Esterase (NEGATIVE) Urine RBC (0-5) /HPF Urine WBC (0-5/HPF) /HPF Ur Epithelial Cells (NOT SEEN) /HPF Amorphous Sediment (NOT SEEN) /HPF Urine Bacteria (0-FEW/HPF) /HPF Urine Other Ketones SARS-CoV-2 RNA (AYUSH) (NEGATIVE) 02/17/21 02/17/21 02/17/21 Range/Units 05:30 05:30 06:09 WBC 14.4 H (5.0-10.0) 10^3/uL RBC 4.10 L (4.2-5.4) 10^6/uL Hgb 9.4 L (12.0-16.0) g/dL Hct 29.6 L (37.0-47.0) % MCV 72.2 L D (80-100) fL MCH 22.9 L (27.0-34.0) pg MCHC 31.8 L (33.0-35.0) g/dL Plt Count 177 D (150-450) 10^3/uL Neut % (Auto) 83.7 H (42.2-75.2) % Lymph % (Auto) 5.1 L (20.5-50.1) % [place] % (Auto) 11.1 H (2-8) % Eos % (Auto) 0.0 L (1.0-3.0) % Baso % (Auto) 0.1 (0.0-1.0) % Add Manual Diff Neutrophils % (Manual) (42-75) % Lymphocytes % (Manual) (20-50) % Monocytes % (Manual) (2-8) % Metamyelocytes % Polychromasia Hypochromasia VBG pH (7.31-7.41) VBG pCO2 (41-51) mmHg VBG pO2 (35-42) mmHg VBG HCO3 (19-25) mmol/l VBG O2 Saturation (60-80) % VBG Base Excess ((-2)-(+3)) mmol/l O2 Delivery Device Sodium 141 (136-145) mmol/L Potassium 3.1 L (3.5-5.1) mmol/L Chloride 107 (98-107) mmol/L Carbon Dioxide 15 L (21-32) mmol/L Anion Gap 22.1 H (7-13) mEq/L BUN 36 H (7-18) mg/dL Creatinine 1.92 H (0.55-1.02) mg/dL Est Cr Clr Drug Dosing 26.89 Estimated GFR (MDRD) 26 BUN/Creatinine Ratio (No establ ref range) Glucose 121 H (70-99) mg/dL POC Glucose 100 H (70-99) mg/dL Lactic Acid (0.4-2.0) mmol/L Calcium 7.9 L (8.5-10.1) mg/dL Phosphorus (2.6-4.7) mg/dL Magnesium (1.8-2.4) mg/dL Total Bilirubin (0.2-1.0) mg/dL AST (15-37) U/L ALT (14-59) U/L Alkaline Phosphatase (46-116) U/L Creatine Kinase (16-191) U/L Troponin I High Sens 3484 H* (<=51) pg/mL C-Reactive Protein (0.0-0.9) mg/dL B-Natriuretic Peptide (0-100) pg/ml Total Protein (6.4-8.2) g/dL Albumin (3.4-5.0) g/dL Globulin Albumin/Globulin Ratio Urine Color (YELLOW) Urine Appearance (CLEAR) Urine pH (5.0-9.0) Ur Specific [place] (1.005-1.030) Urine Protein (NEGATIVE) Urine Glucose (UA) (NEGATIVE) Urine Ketones (NEGATIVE) Urine Occult Blood (NEGATIVE) Urine Nitrite (NEGATIVE) Urine Bilirubin (NEGATIVE) Urine Urobilinogen (0.2-1.0) mg/dL Ur Leukocyte Esterase (NEGATIVE) Urine RBC (0-5) /HPF Urine WBC (0-5/HPF) /HPF Ur Epithelial Cells (NOT SEEN) /HPF Amorphous Sediment (NOT SEEN) /HPF Urine Bacteria (0-FEW/HPF) /HPF Urine Other Ketones SARS-CoV-2 RNA (AYUSH) (NEGATIVE) 02/17/21 02/17/21 02/17/21 Range/Units 07:43 08:13 09:59 WBC (5.0-10.0) 10^3/uL RBC (4.2-5.4) 10^6/uL Hgb (12.0-16.0) g/dL Hct (37.0-47.0) % MCV (80-100) fL MCH (27.0-34.0) pg MCHC (33.0-35.0) g/dL Plt Count (150-450) 10^3/uL Neut % (Auto) (42.2-75.2) % Lymph % (Auto) (20.5-50.1) % [place] % (Auto) (2-8) % Eos % (Auto) (1.0-3.0) % Baso % (Auto) (0.0-1.0) % Add Manual Diff Neutrophils % (Manual) (42-75) % Lymphocytes % (Manual) (20-50) % Monocytes % (Manual) (2-8) % Metamyelocytes % Polychromasia Hypochromasia VBG pH 7.39 (7.31-7.41) VBG pCO2 31 L (41-51) mmHg VBG pO2 44 H (35-42) mmHg VBG HCO3 18 L (19-25) mmol/l VBG O2 Saturation 79.3 (60-80) % VBG Base Excess -5.5 L ((-2)-(+3)) mmol/l O2 Delivery Device Nasal cannula Sodium (136-145) mmol/L Potassium (3.5-5.1) mmol/L Chloride (98-107) mmol/L Carbon Dioxide (21-32) mmol/L Anion Gap (7-13) mEq/L BUN (7-18) mg/dL Creatinine (0.55-1.02) mg/dL Est Cr Clr Drug Dosing Estimated GFR (MDRD) BUN/Creatinine Ratio (No establ ref range) Glucose (70-99) mg/dL POC Glucose 83 105 H (70-99) mg/dL Lactic Acid (0.4-2.0) mmol/L Calcium (8.5-10.1) mg/dL Phosphorus (2.6-4.7) mg/dL Magnesium (1.8-2.4) mg/dL Total Bilirubin (0.2-1.0) mg/dL AST (15-37) U/L ALT (14-59) U/L Alkaline Phosphatase (46-116) U/L Creatine Kinase (16-191) U/L Troponin I High Sens (<=51) pg/mL C-Reactive Protein (0.0-0.9) mg/dL B-Natriuretic Peptide (0-100) pg/ml Total Protein (6.4-8.2) g/dL Albumin (3.4-5.0) g/dL Globulin Albumin/Globulin Ratio Urine Color (YELLOW) Urine Appearance (CLEAR) Urine pH (5.0-9.0) Ur Specific [place] (1.005-1.030) Urine Protein (NEGATIVE) Urine Glucose (UA) (NEGATIVE) Urine Ketones (NEGATIVE) Urine Occult Blood (NEGATIVE) Urine Nitrite (NEGATIVE) Urine Bilirubin (NEGATIVE) Urine Urobilinogen (0.2-1.0) mg/dL Ur Leukocyte Esterase (NEGATIVE) Urine RBC (0-5) /HPF Urine WBC (0-5/HPF) /HPF Ur Epithelial Cells (NOT SEEN) /HPF Amorphous Sediment (NOT SEEN) /HPF Urine Bacteria (0-FEW/HPF) /HPF Urine Other Ketones SARS-CoV-2 RNA (AYUSH) (NEGATIVE) Result Diagrams: 02/17/21 05:30 02/17/21 05:30 Sepsis Event Note - Evaluation Sepsis Screening Result: No Definite Risk - Focused Exam Vital Signs: Vital Signs Temp Pulse Resp BP Pulse Ox 02/17/21 08:00 96.9 F 86 22 H 106/59 L 90 L 02/17/21 05:00 88 30 H 103/71 92 L 02/17/21 04:00 97.8 F 83 26 H 107/57 L 92 L 02/17/21 03:00 94 24 H 99/41 L 92 L 02/17/21 02:00 82 26 H 112/63 96 02/17/21 01:00 83 26 H 98/56 L 95 02/17/21 00:00 97 F 81 28 H 107/52 L 99 02/16/21 23:00 97 F 80 26 H 101/56 L 98 - Problem List Review Problem List Initiated/Reviewed/Updated: No - My Orders Last 24 Hours: My Active Orders 02/16/21 17:20 Urinary Catheter Assessment [RC] ASDIRECTED 02/16/21 17:26 Cardiac Monitoring [RC] 08,20 02/16/21 17:30 Flores Catheter Insertion [Insert Urinary Catheter] [OM.PC] Q24H 02/16/21 17:37 Communication Order [RC] STAT Communication Order [RC] STAT Communication Order [RC] STAT Communication Order [RC] STAT 02/16/21 17:55 Code Status [Resuscitation Status] Routine 02/16/21 18:00 Levofloxacin/Dextrose 5%-Water [Levaquin in D5W 500 MG/100 ML] 500 mg Premix Bag 1 bag IV Q24H 02/16/21 18:15 Aspirin [Halfprin] 81 mg PO DAILY 02/16/21 20:40 Vital Signs [RC] Q2HR 02/16/21 20:52 Blood Glucose Check, Bedside [RC] Q2H 02/16/21 22:58 CLOSTRIDIUM DIFFICILE TOX RFLX [MREF] Urgent 02/16/21 22:59 Isolation [COMM] Stat 02/17/21 Breakfast Full Liquid Diet [DIET] 02/17/21 08:15 Heparin Sodium/0.45% NaCl [Heparin 25,000 Units in 1/2 NS 500 ML] 25,000 units in 500 ml IV TITRATE 02/17/21 09:00 Clopidogrel [Plavix] 75 mg PO DAILY 02/17/21 09:30 Intake and Output [RC] ASDIRECTED 02/17/21 Lunch Full Liquid Diet [DIET] 02/18/21 05:11 BASIC METABOLIC PANEL,BMP [CHEM] AM CBC WITH AUTO DIFF [HEME] AM TROPONIN I HIGH SENSITIVITY [CHEM] AM 02/19/21 05:11 BASIC METABOLIC PANEL,BMP [CHEM] AM CBC WITH AUTO DIFF [HEME] AM 02/20/21 05:11 BASIC METABOLIC PANEL,BMP [CHEM] AM CBC WITH AUTO DIFF [HEME] AM 02/21/21 05:11 BASIC METABOLIC PANEL,BMP [CHEM] AM CBC WITH AUTO DIFF [HEME] AM 02/22/21 05:11 BASIC METABOLIC PANEL,BMP [CHEM] AM CBC WITH AUTO DIFF [HEME] AM 02/23/21 05:11 BASIC METABOLIC PANEL,BMP [CHEM] AM CBC WITH AUTO DIFF [HEME] AM - Plan Plan:: Metabolic encephalopathy due to DKA: Improved with treatment. PH is now NL. DC IVF due to low UOP. Continue with Lantus and insulin PRN Non STEMI: Pt is CP free. EKG were faxred to [facility] and case was discussed with Dr. Pan ( Claim Investigator): Aspirin, plavix 300 mg and heaprin drip and to be transferred once there is a bed. No bed so far. Pt;s daughter Ms. Rios was updated and she agrees. repeat 2ed ECG: showed no changes from earlier today. ? Lung infiltrates: Levaquin. H/o CHF: DC IVF since only mild UOP. SHANTEL ( oliguria ) on CKD stage 3 Case manger consult Full code as per old file and pts daughter. Critical time 40 min
[2021-02-17] MEDS ORDERED: Clopidogrel 75 MG Tab PO STA (11:10)
[2021-02-17] MEDS: Insulin Lispro 100 Units/ML 3 ML Vial SUBCUT SCH ×3 (11:24→20:12)
[2021-02-17 16:14] LABS: ANION GAP 17.3 mEq/L (7-13)
[2021-02-17] MEDS ORDERED: Potassium Chloride 10% 20 MEQ/15 ML Soln 15 ML UD Cup PO ONE (17:00)
[2021-02-17] MEDS ORDERED: Heparin Sodium 5,000 Units/ML Vial IVPUSH ONE (22:55)
[2021-02-18] MEDS: Acetaminophen 500 MG Tab PO PRN ×2 (02:27→15:31)
[2021-02-18 08:59] LABS: ANION GAP 15.9 mEq/L (7-13)
[2021-02-18] MEDS ORDERED: Clopidogrel 75 MG Tab PO SCH (09:00)
[2021-02-18] MEDS: Insulin Lispro 100 Units/ML 3 ML Vial SUBCUT SCH (09:04)
[2021-02-18] MEDS ORDERED: Heparin Sodium 5,000 Units/ML Vial IVPUSH ONE ×2 (09:17→22:42)
[2021-02-18] MEDS: Aspirin 81 MG Tab.EC PO SCH (09:25)
[2021-02-18] MEDS: Clopidogrel 75 MG Tab PO SCH (09:25)
[2021-02-18] MEDS: Heparin Sodium/0.45% NaCl 25,000 UNITS/500 ML BAG IV SCH (09:37)
[2021-02-18] MEDS: Lactated Ringers 1,000 ML IV SCH ×2 (12:07→21:43)
[2021-02-18] MEDS ORDERED: Nitroglycerin 0.4 MG Tab.SL SL ONE (15:40)
[2021-02-18] MEDS ORDERED: Levofloxacin/Dextrose 5%-Water 500 MG in Premix Bag 1 BAG IV SCH (18:00)
[2021-02-18] MEDS: Nystatin Topical Powder 30 GM Bottle TOP SCH (20:32)
[2021-02-18] MEDS ORDERED: Zolpidem 5 MG Tab PO ONE (22:05)
[2021-02-19] MEDS: Heparin Sodium/0.45% NaCl 25,000 UNITS/500 ML BAG IV SCH (03:31)
[2021-02-19] MEDS: Nystatin Topical Powder 30 GM Bottle TOP SCH ×4 (03:43→22:05)
[2021-02-19] MEDS: Lactated Ringers 1,000 ML IV SCH (05:45)
[2021-02-19] MEDS: Clopidogrel 75 MG Tab PO SCH (08:47)
[2021-02-19] MEDS: Aspirin 81 MG Tab.EC PO SCH (08:47)
[2021-02-19] MEDS: Acetaminophen 500 MG Tab PO PRN ×2 (08:48→21:44)
[2021-02-19] MEDS ORDERED: 50% Dextrose in Water 50 ML Syringe IVPUSH PRN (09:22)
[2021-02-19] MEDS ORDERED: Glucagon,Human Recombinant 1 MG Vial IM PRN (09:22)
[2021-02-19] MEDS ORDERED: Insulin Glarg,Human.Rec.Analog 100 Unit/ML SUBCUT ONE (09:22)
[2021-02-19] MEDS: Levofloxacin/Dextrose 5%-Water 750 MG in Premix Bag 1 BAG IV SCH (11:33)
[2021-02-19] MEDS ORDERED: Insulin Lispro 100 Units/ML 3 ML Vial SUBCUT ONE ×2 (12:26)
[2021-02-19] MEDS ORDERED: Carvedilol 6.25 MG Tab PO ONE (12:27)
[2021-02-19] MEDS: Insulin Lispro 100 Units/ML 3 ML Vial SUBCUT SCH ×3 (12:31→21:46)
[2021-02-19] MEDS: Carvedilol 3.125 MG Tab PO SCH (17:50)
[2021-02-19] MEDS ORDERED: Insulin Glarg,Human.Rec.Analog 100 Unit/ML SUBCUT SCH (21:00)
[2021-02-19] MEDS: Melatonin 3 MG Tab PO PRN (21:43)
[2021-02-19] MEDS: Ezetimibe 10 MG Tab PO SCH (21:44)
[2021-02-20] MEDS ORDERED: Zolpidem 5 MG Tab PO ONE (00:17)
[2021-02-20] MEDS: Nystatin Topical Powder 30 GM Bottle TOP SCH ×3 (05:29→21:24)
[2021-02-20 06:43] LABS: ANION GAP 11.4 mEq/L (7-13); CHLORIDE,CL 114 mmol/L (98-107); SODIUM,NA 145 mmol/L (136-145)
--- NOTE | 2021-02-20 07:09 | PCM.PN ---
- General Info Date of Service: 02/18/21 Admission Dx/Problem (Free Text): Admission Diagnosis/Problem Admission Diagnosis/Problem Diabetic ketoacidosis without coma Subjective Update: Coreen was admitted 2 days ago with severe mental status change, metabolic acidosis, and elevated troponin. Her acidosis has since normalized, and she has been on IV heparin for the last 24 hours. Because of the COVID- pandemic crisis, they were not able to take her at [facility] in [place] for a angiogram. Nursing reports that she has not complained of any chest pain or heaviness, that her mentation is slowly improving, albeit slowly. - Patient Data Vitals - Most Recent: Last Vital Signs Temp 98.2 F 02/20/21 04:00 Pulse 71 02/20/21 04:00 Resp 22 H 02/20/21 04:00 BP 118/67 02/20/21 04:00 Pulse Ox 93 L 02/20/21 04:00 Weight - Most Recent: 172 lb 6.424 oz I&O - Last 24 Hours: Intake & Output 02/19/21 02/20/21 02/20/21 22:59 06:59 14:59 Intake Total 400 460 Balance 400 460 Lab Results Last 24 Hours: Laboratory Results - last 24 hr 02/19/21 02/19/21 02/19/21 Range/Units 07:52 11:32 11:34 APTT 72.4 H (22.0-34.0) SEC Sodium (136-145) mmol/L Potassium (3.5-5.1) mmol/L Chloride (98-107) mmol/L Carbon Dioxide (21-32) mmol/L Anion Gap (7-13) mEq/L BUN (7-18) mg/dL Creatinine (0.55-1.02) mg/dL Est Cr Clr Drug Dosing mL/min Estimated GFR (MDRD) BUN/Creatinine Ratio (No establ ref range) Glucose (70-99) mg/dL POC Glucose 328 H 401 H* (70-99) mg/dL Hemoglobin A1c (<5.7) % Calcium (8.5-10.1) mg/dL Iron (50-170) ug/dL TIBC (250-450) ug/dL % Saturation (20.0-50.0) % Total Bilirubin (0.2-1.0) mg/dL AST (15-37) U/L ALT (14-59) U/L Alkaline Phosphatase (46-116) U/L Total Protein (6.4-8.2) g/dL Albumin (3.4-5.0) g/dL Globulin Albumin/Globulin Ratio 02/19/21 02/19/21 02/20/21 Range/Units 17:04 20:31 05:50 APTT (22.0-34.0) SEC Sodium (136-145) mmol/L Potassium (3.5-5.1) mmol/L Chloride (98-107) mmol/L Carbon Dioxide (21-32) mmol/L Anion Gap (7-13) mEq/L BUN (7-18) mg/dL Creatinine (0.55-1.02) mg/dL Est Cr Clr Drug Dosing mL/min Estimated GFR (MDRD) BUN/Creatinine Ratio (No establ ref range) Glucose (70-99) mg/dL POC Glucose 255 H 154 H (70-99) mg/dL Hemoglobin A1c 11.0 H (<5.7) % Calcium (8.5-10.1) mg/dL Iron (50-170) ug/dL TIBC (250-450) ug/dL % Saturation (20.0-50.0) % Total Bilirubin (0.2-1.0) mg/dL AST (15-37) U/L ALT (14-59) U/L Alkaline Phosphatase (46-116) U/L Total Protein (6.4-8.2) g/dL Albumin (3.4-5.0) g/dL Globulin Albumin/Globulin Ratio 02/20/21 02/20/21 Range/Units 05:50 05:50 APTT (22.0-34.0) SEC Sodium 145 (136-145) mmol/L Potassium 3.4 L (3.5-5.1) mmol/L Chloride 114 H (98-107) mmol/L Carbon Dioxide 23 (21-32) mmol/L Anion Gap 11.4 (7-13) mEq/L BUN 20 H (7-18) mg/dL Creatinine 0.87 (0.55-1.02) mg/dL Est Cr Clr Drug Dosing 59.35 mL/min Estimated GFR (MDRD) > 60 BUN/Creatinine Ratio 23.0 (No establ ref range) Glucose 66 L (70-99) mg/dL POC Glucose (70-99) mg/dL Hemoglobin A1c (<5.7) % Calcium 7.9 L (8.5-10.1) mg/dL Iron 37 L (50-170) ug/dL TIBC 259 (250-450) ug/dL % Saturation 14.3 L (20.0-50.0) % Total Bilirubin 0.3 (0.2-1.0) mg/dL AST 9 L (15-37) U/L ALT 16 (14-59) U/L Alkaline Phosphatase 166 H (46-116) U/L Total Protein 4.8 L (6.4-8.2) g/dL Albumin 1.8 L (3.4-5.0) g/dL Globulin 3.0 Albumin/Globulin Ratio 0.60 Lorenzo Results Last 24 Hours: Microbiology 02/16/21 22:58 Clostridioides difficile (PCR) - Final Stool / Feces Clostridioides difficile Toxin Assay - Final 02/16/21 14:03 Urine Culture - Final Urine, Catheterized Escherichia Coli Providencia Alcalifaciens Med Orders - Current: Current Medications Acetaminophen (Acetaminophen 500 Mg Tab) 500 mg PO Q4H PRN PRN Reason: Pain/Fever Last Admin: 02/19/21 21:44 Dose: 500 mg Documented by: Aspirin (Aspirin 81 Mg Tab.Ec) 81 mg PO DAILY [facility] Last Admin: 02/19/21 08:47 Dose: 81 mg Documented by: Carvedilol (Carvedilol 3.125 Mg Tab) 3.125 mg PO BIDMEALS [facility] Last Admin: 02/19/21 17:50 Dose: 3.125 mg Documented by: Clopidogrel Bisulfate (Clopidogrel 75 Mg Tab) 75 mg PO DAILY [facility] Last Admin: 02/19/21 08:47 Dose: 75 mg Documented by: Dextrose/Water (50% Dextrose In Water 50 Ml Syringe) 50 ml IVPUSH Q15M PRN PRN Reason: Hypoglycemia Ezetimibe (Ezetimibe 10 Mg Tab) 10 mg PO BEDTIME [facility] Last Admin: 02/19/21 21:44 Dose: 10 mg Documented by: Glucagon (Glucagon,Human Recombinant 1 Mg Vial) 1 mg IM Q15M PRN PRN Reason: Hypoglycemia Levofloxacin/Dextrose 750 mg/ (Premix) 150 mls @ 100 mls/hr IV Q24H [facility] Last Infusion: 02/19/21 13:06 Dose: Infused Documented by: Insulin Glargine (Insulin Glarg,Human.Rec.Analog 100 Unit/Ml) 40 unit SUBCUT BE DTIME [facility] Last Admin: 02/19/21 21:47 Dose: 40 units Documented by: Insulin Human Lispro (Insulin Lispro 100 Units/Ml 3 Ml Vial) 0 unit SUBCUT WITHMEALSANDBED [facility]; Protocol Last Admin: 02/19/21 21:46 Dose: 2 units Documented by: Lisinopril (Lisinopril 10 Mg Tab) 10 mg PO DAILY [facility] Melatonin (Melatonin 3 Mg Tab) 6 mg PO BEDTIME PRN PRN Reason: Sleep Last Admin: 02/19/21 21:43 Dose: 6 mg Documented by: Nystatin (Nystatin Topical Powder 30 Gm Bottle) 0 gm TOP Q8HR [facility] Last Admin: 02/20/21 05:29 Dose: 1 applic Documented by: Discontinued Medications Carvedilol (Carvedilol 6.25 Mg Tab) 6.25 mg PO ONETIME ONE Stop: 02/19/21 12:28 Last Admin: 02/19/21 12:36 Dose: Not Given Documented by: Clopidogrel Bisulfate (Clopidogrel 75 Mg Tab) 225 mg PO ONETIME STA Stop: 02/17/21 11:11 Last Admin: 02/17/21 11:24 Dose: 225 mg Documented by: Dextrose/Water (50% Dextrose In Water 50 Ml Syringe) 50 ml IVPUSH Q15M PRN PRN Reason: Hypoglycemia Dextrose/Water (50% Dextrose In Water 50 Ml Syringe) 50 ml IVPUSH Q15M PRN PRN Reason: Hypoglycemia Furosemide (Furosemide 20 Mg/2 Ml Vial) 20 mg IVPUSH ONETIME ONE Stop: 02/16/21 15:51 Last Admin: 02/16/21 15:54 Dose: 20 mg Documented by: Glucagon (Glucagon,Human Recombinant 1 Mg Vial) 1 mg IM Q15M PRN PRN Reason: Hypoglycemia Heparin Sodium (Porcine) (Heparin Sodium 5,000 Units/Ml Vial) 4,700 units IV ONETIME ONE Stop: 02/17/21 08:31 Last Admin: 02/17/21 08:34 Dose: 4,700 units Documented by: Heparin Sodium (Porcine) (Heparin Sodium 5,000 Units/Ml Vial) 1,000 units IVPUSH ONETIME ONE Stop: 02/17/21 22:56 Last Admin: 02/17/21 23:14 Dose: 1,000 units Documented by: Heparin Sodium (Porcine) (Heparin Sodium 5,000 Units/Ml Vial) 2,000 units IVPUSH .BOLUS ONE Stop: 02/18/21 09:18 Last Admin: 02/18/21 09:35 Dose: 2,000 units Documented by: Heparin Sodium (Porcine) (Heparin Sodium 5,000 Units/Ml Vial) 2,000 units IVPUSH ONETIME ONE Stop: 02/18/21 22:43 Last Admin: 02/18/21 22:55 Dose: 2,000 units Documented by: Sodium Chloride (Normal Saline) 1,000 mls @ 999 mls/hr IV .BOLUS ONE Stop: 02/16/21 15:00 Last Admin: 02/16/21 17:42 Dose: 999 mls/hr Documented by: Albumin Human (Buminate 5%) 250 mls @ 250 mls/hr IV ASDIRECTED ERIN Last Admin: 02/16/21 15:01 Dose: 250 mls/hr Documented by: Sodium Bicarbonate 100 meq/ (Dextrose/Water) 1,100 mls @ 100 mls/hr IV ONETIME ONE Stop: 02/17/21 02:02 Last Admin: 02/16/21 15:18 Dose: 100 mls/hr Documented by: Insulin Regular in 0.9 % NACL (Myxredlin In Ns 100 Unit/100 Ml) 100 unit in 100 mls @ 7.82 mls/hr IV TITRATE ERIN; Protocol Sodium Bicarbonate 100 meq/ (Dextrose/Water) 1,100 mls @ 999 mls/hr IV ONETIME ONE Stop: 02/16/21 18:27 Last Admin: 02/16/21 22:50 Dose: Not Given Documented by: Sodium Chloride (Normal Saline) 1,000 mls @ 250 mls/hr IV ASDIRECTED ERIN Insulin Regular in 0.9 % NACL (Myxredlin In Ns 100 Unit/100 Ml) 100 unit in 100 mls @ 7.82 mls/hr IV TITRATE ERIN; Protocol Last Titration: 02/17/21 02:36 Dose: 0 units/kg/hr, 0 mls/hr Documented by: Levofloxacin/Dextrose 500 mg/ (Premix) 100 mls @ 100 mls/hr IV Q24H [facility] Last Admin: 02/16/21 20:54 Dose: 100 mls/hr Documented by: Sodium Chloride (Normal Saline) 1,000 mls @ 1,000 mls/hr IV ASDIRECTED [facility] Stop: 02/16/21 19:59 Last Admin: 02/16/21 19:02 Dose: 1,000 mls/hr Documented by: Potassium Chloride/Sodium Chloride (Normal Saline With 40 Meq Kcl) 1,000 mls @ 250 mls/hr IV ASDIRECTED [facility] Last Admin: 02/17/21 01:48 Dose: 250 mls/hr Documented by: Sodium Bicarbonate 100 meq/ (Dextrose/Water) 1,100 mls @ 150 mls/hr IV ONETIME ONE Stop: 02/17/21 10:39 Last Infusion: 02/17/21 07:55 Dose: 50 mls/hr Documented by: Heparin Sodium/Sodium Chloride (Heparin 25,000 Units In 1/2 Ns 500 Ml) 25,000 units in 500 mls @ 18.768 mls/hr IV TITRATE [facility]; Protocol Last Admin: 02/19/21 03:31 Dose: 22 units/kg/hr, 34.408 mls/hr Documented by: Levofloxacin/Dextrose 500 mg/ (Premix) 100 mls @ 100 mls/hr IV Q48H [facility] Last Admin: 02/18/21 17:21 Dose: 100 mls/hr Documented by: Lactated Ringer's (Ringers, Lactated) 1,000 mls @ 125 mls/hr IV ASDIRECTED [facility] Last Admin: 02/19/21 05:45 Dose: 125 mls/hr Documented by: Insulin Glargine (Insulin Glarg,Human.Rec.Analog 100 Unit/Ml) 35 unit SUBCUT ONETIME ONE Stop: 02/17/21 04:13 Last Admin: 02/17/21 04:28 Dose: 35 units Documented by: Insulin Glargine (Insulin Glarg,Human.Rec.Analog 100 Unit/Ml) 20 unit SUBCUT ONETIME ONE Stop: 02/19/21 09:23 Last Admin: 02/19/21 09:57 Dose: 20 units Documented by: Insulin Human Lispro (Insulin Lispro 100 Units/Ml 3 Ml Vial) 5 unit SUBCUT ONETIME ONE Stop: 02/17/21 04:15 Last Admin: 02/17/21 04:29 Dose: 5 units Documented by: Insulin Human Lispro (Insulin Lispro 100 Units/Ml 3 Ml Vial) 0 unit SUBCUT WITHMEALSANDBED [facility]; Protocol Last Admin: 02/18/21 09:04 Dose: Not Given Documented by: Insulin Human Lispro (Insulin Lispro 100 Units/Ml 3 Ml Vial) 14 unit SUBCUT ONETIME ONE Stop: 02/19/21 12:27 Last Admin: 02/19/21 12:36 Dose: Not Given Documented by: Insulin Human Lispro (Insulin Lispro 100 Units/Ml 3 Ml Vial) 12 unit SUBCUT ONETIME ONE Stop: 02/19/21 12:27 Last Admin: 02/19/21 12:41 Dose: 12 units Documented by: Insulin Human Regular (Insulin Regular, Human 100 Units/Ml 3 Ml Vial) 5 unit IV ONETIME ONE Stop: 02/16/21 14:22 Last Admin: 02/16/21 14:59 Dose: 5 unit Documented by: Insulin Human Regular (Insulin Regular, Human 100 Units/Ml 3 Ml Vial) 10 unit IV STAT STA Stop: 02/16/21 17:11 Last Admin: 02/16/21 17:19 Dose: 10 units Documented by: Insulin Human Regular (Insulin Regular, Human 100 Units/Ml 3 Ml Vial) 10 unit IV ONETIME ONE Stop: 02/16/21 18:13 Last Admin: 02/16/21 18:14 Dose: 10 units Documented by: Lisinopril (Lisinopril 5 Mg Tab) 2.5 mg PO DAILY [facility] Nitroglycerin (Nitroglycerin 0.4 Mg Tab.Sl) 0.4 mg SL ONETIME ONE Stop: 02/18/21 15:41 Last Admin: 02/18/21 15:47 Dose: 0.4 mg Documented by: Nystatin (Nystatin Topical Powder 30 Gm Bottle) 0 gm TOP Q8H [facility] Last Admin: 02/19/21 03:43 Dose: 1 applic Documented by: Potassium Chloride (Potassium Chloride 10 Meq Tab.Er) 40 meq PO ONETIME ONE Stop: 02/17/21 03:20 Last Admin: 02/17/21 07:20 Dose: Not Given Documented by: Potassium Chloride (Potassium Chloride 10 Meq Tab.Er) 40 meq PO ONETIME ONE Stop: 02/17/21 07:52 Last Admin: 02/17/21 08:43 Dose: 40 meq Documented by: Potassium Chloride (Potassium Chloride 10% 20 Meq/15 Ml Soln 15 Ml Ud Cup) 40 meq PO ONETIME ONE Stop: 02/17/21 17:01 Last Admin: 02/17/21 17:41 Dose: 40 meq Documented by: Sodium Bicarbonate (Sodium Bicarbonate 8.4% 50 Meq/50 Ml Syringe) 50 meq IVPUSH ONETIME ONE Stop: 02/16/21 15:04 Last Admin: 02/16/21 15:08 Dose: 50 meq Documented by: Sodium Bicarbonate (Sodium Bicarbonate 8.4% 50 Meq/50 Ml Syringe) 100 meq IVPUSH ONETIME ONE Stop: 02/16/21 17:24 Last Admin: 02/16/21 17:49 Dose: 100 meq Documented by: Zolpidem Tartrate (Zolpidem 5 Mg Tab) 5 mg PO ONETIME ONE Stop: 02/18/21 22:06 Last Admin: 02/18/21 22:17 Dose: 5 mg Documented by: Zolpidem Tartrate (Zolpidem 5 Mg Tab) 5 mg PO ONETIME ONE Stop: 02/20/21 00:18 Last Admin: 02/20/21 00:38 Dose: 5 mg Documented by: - Exam Urinary Catheter Total Time: 2Days 13Hours Physical Findings Comments:: General: Coreen is a 70-year-old woman in no acute distress. She is showing no signs of respiratory distress, no tachypnea or accessory muscle use Oropharynx: Clear, no exudates or petechia noted Neck: Supple, no lymphadenopathy, no elevated JVD Heart: Regular rate and rhythm, 1 out of 6 systolic murmur best heard over left sternal border Lungs: Clear to auscultation throughout Abdomen: Soft, nontender to palpation, normal bowel sounds heard throughout She is moving all of her extremities normally, cranial nerves II through XII grossly intact - Patient Data Lab Results Last 24 hrs: Laboratory Results - last 24 hr 02/19/21 02/19/21 02/19/21 Range/Units 07:52 11:32 11:34 APTT 72.4 H (22.0-34.0) SEC Sodium (136-145) mmol/L Potassium (3.5-5.1) mmol/L Chloride (98-107) mmol/L Carbon Dioxide (21-32) mmol/L Anion Gap (7-13) mEq/L BUN (7-18) mg/dL Creatinine (0.55-1.02) mg/dL Est Cr Clr Drug Dosing mL/min Estimated GFR (MDRD) BUN/Creatinine Ratio (No establ ref range) Glucose (70-99) mg/dL POC Glucose 328 H 401 H* (70-99) mg/dL Hemoglobin A1c (<5.7) % Calcium (8.5-10.1) mg/dL Iron (50-170) ug/dL TIBC (250-450) ug/dL % Saturation (20.0-50.0) % Total Bilirubin (0.2-1.0) mg/dL AST (15-37) U/L ALT (14-59) U/L Alkaline Phosphatase (46-116) U/L Total Protein (6.4-8.2) g/dL Albumin (3.4-5.0) g/dL Globulin Albumin/Globulin Ratio 02/19/21 02/19/21 02/20/21 Range/Units 17:04 20:31 05:50 APTT (22.0-34.0) SEC Sodium (136-145) mmol/L Potassium (3.5-5.1) mmol/L Chloride (98-107) mmol/L Carbon Dioxide (21-32) mmol/L Anion Gap (7-13) mEq/L BUN (7-18) mg/dL Creatinine (0.55-1.02) mg/dL Est Cr Clr Drug Dosing mL/min Estimated GFR (MDRD) BUN/Creatinine Ratio (No establ ref range) Glucose (70-99) mg/dL POC Glucose 255 H 154 H (70-99) mg/dL Hemoglobin A1c 11.0 H (<5.7) % Calcium (8.5-10.1) mg/dL Iron (50-170) ug/dL TIBC (250-450) ug/dL % Saturation (20.0-50.0) % Total Bilirubin (0.2-1.0) mg/dL AST (15-37) U/L ALT (14-59) U/L Alkaline Phosphatase (46-116) U/L Total Protein (6.4-8.2) g/dL Albumin (3.4-5.0) g/dL Globulin Albumin/Globulin Ratio 02/20/21 02/20/21 Range/Units 05:50 05:50 APTT (22.0-34.0) SEC Sodium 145 (136-145) mmol/L Potassium 3.4 L (3.5-5.1) mmol/L Chloride 114 H (98-107) mmol/L Carbon Dioxide 23 (21-32) mmol/L Anion Gap 11.4 (7-13) mEq/L BUN 20 H (7-18) mg/dL Creatinine 0.87 (0.55-1.02) mg/dL Est Cr Clr Drug Dosing 59.35 mL/min Estimated GFR (MDRD) > 60 BUN/Creatinine Ratio 23.0 (No establ ref range) Glucose 66 L (70-99) mg/dL POC Glucose (70-99) mg/dL Hemoglobin A1c (<5.7) % Calcium 7.9 L (8.5-10.1) mg/dL Iron 37 L (50-170) ug/dL TIBC 259 (250-450) ug/dL % Saturation 14.3 L (20.0-50.0) % Total Bilirubin 0.3 (0.2-1.0) mg/dL AST 9 L (15-37) U/L ALT 16 (14-59) U/L Alkaline Phosphatase 166 H (46-116) U/L Total Protein 4.8 L (6.4-8.2) g/dL Albumin 1.8 L (3.4-5.0) g/dL Globulin 3.0 Albumin/Globulin Ratio 0.60 Result Diagrams: 02/19/21 05:25 02/20/21 05:50 Lorenzo Results Last 24 hrs: Microbiology 02/16/21 22:58 Clostridioides difficile (PCR) - Final Stool / Feces Clostridioides difficile Toxin Assay - Final 02/16/21 14:03 Urine Culture - Final Urine, Catheterized Escherichia Coli Providencia Alcalifaciens Sepsis Event Note - Evaluation Sepsis Screening Result: No Definite Risk - Focused Exam Vital Signs: Vital Signs Temp Temp Pulse Resp BP Pulse Ox 02/20/21 04:00 98.2 F 71 22 H 118/67 93 L 02/20/21 00:00 98.3 F 69 21 H 117/64 93 L 02/19/21 20:00 98.5 F 85 20 124/67 96 - Problem List & Annotations (1) Acute coronary syndrome with high troponin SNOMED Code(s): 423729276, 942411511 Code(s): I24.9 - ACUTE ISCHEMIC HEART DISEASE, UNSPECIFIED Status: Acute Current Visit: Yes (2) Failure to thrive SNOMED Code(s): 31252425 Code(s): QHD3917 - Status: Acute Current Visit: Yes (3) Unable to walk SNOMED Code(s): 259347542 Code(s): R26.2 - DIFFICULTY IN WALKING, NOT ELSEWHERE CLASSIFIED Status: Acute Current Visit: Yes (4) DKA (diabetic ketoacidosis) SNOMED Code(s): 745773248, 682633696 Code(s): E11.10 - TYPE 2 DIABETES MELLITUS WITH KETOACIDOSIS WITHOUT COMA Status: Acute Current Visit: No Qualifiers: Diabetes mellitus type: type 2 Diabetes mellitus complication detail: without coma Qualified Code(s): E11.10 - Type 2 diabetes mellitus with ketoacidosis without coma (5) Weakness SNOMED Code(s): 08979362 Code(s): R53.1 - WEAKNESS Status: Acute Current Visit: No - Problem List Review Problem List Initiated/Reviewed/Updated: Yes - My Orders Last 24 Hours: My Active Orders 02/19/21 10:52 Blood Glucose Check, Bedside [RC] QIDACANDBED 02/19/21 11:00 Levofloxacin/Dextrose 5%-Water [Levaquin in D5W 750 MG/150 ML] 750 mg Premix Bag 1 bag IV Q24H 02/19/21 Lunch 2 Gram Sodium Diet [DIET] Consistent Carbohydrate Diet [DIET] Insulin Lispro [HumaLOG] See Protocol SUBCUT WITHMEALSANDBED 02/19/21 14:00 Nystatin [Nystop] 0 gm TOP Q8HR 02/19/21 18:00 carvediloL [Coreg] 3.125 mg PO BIDMEALS 02/19/21 21:00 Ezetimibe [Zetia] 10 mg PO BEDTIME Insulin Glarg,Human.Rec.Analog [LantUS] 40 unit SUBCUT BEDTIME 02/20/21 09:00 lisinopriL [Prinivil] 10 mg PO DAILY - Assessment Assessment:: Assessment/Plan: 1. 70-year-old woman with severe metabolic acidosis, resolved -She is no longer receiving frequent insulin -Since we have her n.p.o. for possible cardiac procedure today, will start lactated Ringer's at replacement of 125 mL/h -Blood sugars now stable, will continue to monitor that 4 times daily 2. Elevated troponin without ST elevation or ST depression on EKG; presumed to be either acute coronary syndrome or non-STEMI -She remains on the waiting list to be admitted in [place] for cardiology care. We will await that placement hopefully today 3. Insulin-dependent diabetes mellitus, with diabetic ketoacidosis, now stabilized 4. Nonambulatory status; failure to thrive 5. VTE prophylaxis: She is currently on a heparin drip, if this is discontinued, will most likely switch her to Lovenox daily
--- NOTE | 2021-02-20 07:16 | PCM.PN ---
- General Info Date of Service: 02/19/21 Admission Dx/Problem (Free Text): Admission Diagnosis/Problem Admission Diagnosis/Problem Diabetic ketoacidosis without coma Subjective Update: Had a good night last night. Coreen she had no further issues with any pressure in her chest or chest pain. Nursing reports that she is asking for food this morning. [facility] has still been not able to take her for cardiology evaluation due to the COVID-19 crisis. - Patient Data Vitals - Most Recent: Last Vital Signs Temp 98.2 F 02/20/21 04:00 Pulse 71 02/20/21 04:00 Resp 22 H 02/20/21 04:00 BP 118/67 02/20/21 04:00 Pulse Ox 93 L 02/20/21 04:00 Weight - Most Recent: 172 lb 6.424 oz I&O - Last 24 Hours: Intake & Output 02/19/21 02/20/21 02/20/21 22:59 06:59 14:59 Intake Total 400 460 Balance 400 460 Lab Results Last 24 Hours: Laboratory Results - last 24 hr 02/19/21 02/19/21 02/19/21 Range/Units 07:52 11:32 11:34 APTT 72.4 H (22.0-34.0) SEC Sodium (136-145) mmol/L Potassium (3.5-5.1) mmol/L Chloride (98-107) mmol/L Carbon Dioxide (21-32) mmol/L Anion Gap (7-13) mEq/L BUN (7-18) mg/dL Creatinine (0.55-1.02) mg/dL Est Cr Clr Drug Dosing mL/min Estimated GFR (MDRD) BUN/Creatinine Ratio (No establ ref range) Glucose (70-99) mg/dL POC Glucose 328 H 401 H* (70-99) mg/dL Hemoglobin A1c (<5.7) % Calcium (8.5-10.1) mg/dL Iron (50-170) ug/dL TIBC (250-450) ug/dL % Saturation (20.0-50.0) % Total Bilirubin (0.2-1.0) mg/dL AST (15-37) U/L ALT (14-59) U/L Alkaline Phosphatase (46-116) U/L Total Protein (6.4-8.2) g/dL Albumin (3.4-5.0) g/dL Globulin Albumin/Globulin Ratio 02/19/21 02/19/21 02/20/21 Range/Units 17:04 20:31 05:50 APTT (22.0-34.0) SEC Sodium (136-145) mmol/L Potassium (3.5-5.1) mmol/L Chloride (98-107) mmol/L Carbon Dioxide (21-32) mmol/L Anion Gap (7-13) mEq/L BUN (7-18) mg/dL Creatinine (0.55-1.02) mg/dL Est Cr Clr Drug Dosing mL/min Estimated GFR (MDRD) BUN/Creatinine Ratio (No establ ref range) Glucose (70-99) mg/dL POC Glucose 255 H 154 H (70-99) mg/dL Hemoglobin A1c 11.0 H (<5.7) % Calcium (8.5-10.1) mg/dL Iron (50-170) ug/dL TIBC (250-450) ug/dL % Saturation (20.0-50.0) % Total Bilirubin (0.2-1.0) mg/dL AST (15-37) U/L ALT (14-59) U/L Alkaline Phosphatase (46-116) U/L Total Protein (6.4-8.2) g/dL Albumin (3.4-5.0) g/dL Globulin Albumin/Globulin Ratio 02/20/21 02/20/21 Range/Units 05:50 05:50 APTT (22.0-34.0) SEC Sodium 145 (136-145) mmol/L Potassium 3.4 L (3.5-5.1) mmol/L Chloride 114 H (98-107) mmol/L Carbon Dioxide 23 (21-32) mmol/L Anion Gap 11.4 (7-13) mEq/L BUN 20 H (7-18) mg/dL Creatinine 0.87 (0.55-1.02) mg/dL Est Cr Clr Drug Dosing 59.35 mL/min Estimated GFR (MDRD) > 60 BUN/Creatinine Ratio 23.0 (No establ ref range) Glucose 66 L (70-99) mg/dL POC Glucose (70-99) mg/dL Hemoglobin A1c (<5.7) % Calcium 7.9 L (8.5-10.1) mg/dL Iron 37 L (50-170) ug/dL TIBC 259 (250-450) ug/dL % Saturation 14.3 L (20.0-50.0) % Total Bilirubin 0.3 (0.2-1.0) mg/dL AST 9 L (15-37) U/L ALT 16 (14-59) U/L Alkaline Phosphatase 166 H (46-116) U/L Total Protein 4.8 L (6.4-8.2) g/dL Albumin 1.8 L (3.4-5.0) g/dL Globulin 3.0 Albumin/Globulin Ratio 0.60 Lorenzo Results Last 24 Hours: Microbiology 02/16/21 22:58 Clostridioides difficile (PCR) - Final Stool / Feces Clostridioides difficile Toxin Assay - Final 02/16/21 14:03 Urine Culture - Final Urine, Catheterized Escherichia Coli Providencia Alcalifaciens Med Orders - Current: Current Medications Acetaminophen (Acetaminophen 500 Mg Tab) 500 mg PO Q4H PRN PRN Reason: Pain/Fever Last Admin: 02/19/21 21:44 Dose: 500 mg Documented by: Aspirin (Aspirin 81 Mg Tab.Ec) 81 mg PO DAILY [facility] Last Admin: 02/19/21 08:47 Dose: 81 mg Documented by: Carvedilol (Carvedilol 3.125 Mg Tab) 3.125 mg PO BIDMEALS [facility] Last Admin: 02/19/21 17:50 Dose: 3.125 mg Documented by: Clopidogrel Bisulfate (Clopidogrel 75 Mg Tab) 75 mg PO DAILY [facility] Last Admin: 02/19/21 08:47 Dose: 75 mg Documented by: Dextrose/Water (50% Dextrose In Water 50 Ml Syringe) 50 ml IVPUSH Q15M PRN PRN Reason: Hypoglycemia Ezetimibe (Ezetimibe 10 Mg Tab) 10 mg PO BEDTIME [facility] Last Admin: 02/19/21 21:44 Dose: 10 mg Documented by: Glucagon (Glucagon,Human Recombinant 1 Mg Vial) 1 mg IM Q15M PRN PRN Reason: Hypoglycemia Levofloxacin/Dextrose 750 mg/ (Premix) 150 mls @ 100 mls/hr IV Q24H [facility] Last Infusion: 02/19/21 13:06 Dose: Infused Documented by: Insulin Glargine (Insulin Glarg,Human.Rec.Analog 100 Unit/Ml) 40 unit SUBCUT BEDTIME [facility] Last Admin: 02/19/21 21:47 Dose: 40 units Documented by: Insulin Human Lispro (Insulin Lispro 100 Units/Ml 3 Ml Vial) 0 unit SUBCUT WITHMEALSANDBED [facility]; Protocol Last Admin: 02/19/21 21:46 Dose: 2 units Documented by: Lisinopril (Lisinopril 10 Mg Tab) 10 mg PO DAILY [facility] Melatonin (Melatonin 3 Mg Tab) 6 mg PO BEDTIME PRN PRN Reason: Sleep Last Admin: 02/19/21 21:43 Dose: 6 mg Documented by: Nystatin (Nystatin Topical Powder 30 Gm Bottle) 0 gm TOP Q8HR [facility] Last Admin: 02/20/21 05:29 Dose: 1 applic Documented by: Discontinued Medications Carvedilol (Carvedilol 6.25 Mg Tab) 6.25 mg PO ONETIME ONE Stop: 02/19/21 12:28 Last Admin: 02/19/21 12:36 Dose: Not Given Documented by: Clopidogrel Bisulfate (Clopidogrel 75 Mg Tab) 225 mg PO ONETIME STA Stop: 02/17/21 11:11 Last Admin: 02/17/21 11:24 Dose: 225 mg Documented by: Dextrose/Water (50% Dextrose In Water 50 Ml Syringe) 50 ml IVPUSH Q15M PRN PRN Reason: Hypoglycemia Dextrose/Water (50% Dextrose In Water 50 Ml Syringe) 50 ml IVPUSH Q15M PRN PRN Reason: Hypoglycemia Furosemide (Furosemide 20 Mg/2 Ml Vial) 20 mg IVPUSH ONETIME ONE Stop: 02/16/21 15:51 Last Admin: 02/16/21 15:54 Dose: 20 mg Documented by: Glucagon (Glucagon,Human Recombinant 1 Mg Vial) 1 mg IM Q15M PRN PRN Reason: Hypoglycemia Heparin Sodium (Porcine) (Heparin Sodium 5,000 Units/Ml Vial) 4,700 units IV ONETIME ONE Stop: 02/17/21 08:31 Last Admin: 02/17/21 08:34 Dose: 4,700 units Documented by: Heparin Sodium (Porcine) (Heparin Sodium 5,000 Units/Ml Vial) 1,000 units IVPUSH ONETIME ONE Stop: 02/17/21 22:56 Last Admin: 02/17/21 23:14 Dose: 1,000 units Documented by: Heparin Sodium (Porcine) (Heparin Sodium 5,000 Units/Ml Vial) 2,000 units IVPUSH .BOLUS ONE Stop: 02/18/21 09:18 Last Admin: 02/18/21 09:35 Dose: 2,000 units Documented by: Heparin Sodium (Porcine) (Heparin Sodium 5,000 Units/Ml Vial) 2,000 units IVPUSH ONETIME ONE Stop: 02/18/21 22:43 Last Admin: 02/18/21 22:55 Dose: 2,000 units Documented by: Sodium Chloride (Normal Saline) 1,000 mls @ 999 mls/hr IV .BOLUS ONE Stop: 02/16/21 15:00 Last Admin: 02/16/21 17:42 Dose: 999 mls/hr Documented by: Albumin Human (Buminate 5%) 250 mls @ 250 mls/hr IV ASDIRECTED ERIN Last Admin: 02/16/21 15:01 Dose: 250 mls/hr Documented by: Sodium Bicarbonate 100 meq/ (Dextrose/Water) 1,100 mls @ 100 mls/hr IV ONETIME ONE Stop: 02/17/21 02:02 Last Admin: 02/16/21 15:18 Dose: 100 mls/hr Documented by: Insulin Regular in 0.9 % NACL (Myxredlin In Ns 100 Unit/100 Ml) 100 unit in 100 mls @ 7.82 mls/hr IV TITRATE ERIN; Protocol Sodium Bicarbonate 100 meq/ (Dextrose/Water) 1,100 mls @ 999 mls/hr IV ONETIME ONE Stop: 02/16/21 18:27 Last Admin: 02/16/21 22:50 Dose: Not Given Documented by: Sodium Chloride (Normal Saline) 1,000 mls @ 250 mls/hr IV ASDIRECTED ERIN Insulin Regular in 0.9 % NACL (Myxredlin In Ns 100 Unit/100 Ml) 100 unit in 100 mls @ 7.82 mls/hr IV TITRATE ERIN; Protocol Last Titration: 02/17/21 02:36 Dose: 0 units/kg/hr, 0 mls/hr Documented by: Levofloxacin/Dextrose 500 mg/ (Premix) 100 mls @ 100 mls/hr IV Q24H [facility] Last Admin: 02/16/21 20:54 Dose: 100 mls/hr Documented by: Sodium Chloride (Normal Saline) 1,000 mls @ 1,000 mls/hr IV ASDIRECTED [facility] Stop: 02/16/21 19:59 Last Admin: 02/16/21 19:02 Dose: 1,000 mls/hr Documented by: Potassium Chloride/Sodium Chloride (Normal Saline With 40 Meq Kcl) 1,000 mls @ 250 mls/hr IV ASDIRECTED [facility] Last Admin: 02/17/21 01:48 Dose: 250 mls/hr Documented by: Sodium Bicarbonate 100 meq/ (Dextrose/Water) 1,100 mls @ 150 mls/hr IV ONETIME ONE Stop: 02/17/21 10:39 Last Infusion: 02/17/21 07:55 Dose: 50 mls/hr Documented by: Heparin Sodium/Sodium Chloride (Heparin 25,000 Units In 1/2 Ns 500 Ml) 25,000 units in 500 mls @ 18.768 mls/hr IV TITRATE [facility]; Protocol Last Admin: 02/19/21 03:31 Dose: 22 units/kg/hr, 34.408 mls/hr Documented by: Levofloxacin/Dextrose 500 mg/ (Premix) 100 mls @ 100 mls/hr IV Q48H [facility] Last Admin: 02/18/21 17:21 Dose: 100 mls/hr Documented by: Lactated Ringer's (Ringers, Lactated) 1,000 mls @ 125 mls/hr IV ASDIRECTED [facility] Last Admin: 02/19/21 05:45 Dose: 125 mls/hr Documented by: Insulin Glargine (Insulin Glarg,Human.Rec.Analog 100 Unit/Ml) 35 unit SUBCUT ONETIME ONE Stop: 02/17/21 04:13 Last Admin: 02/17/21 04:28 Dose: 35 units Documented by: Insulin Glargine (Insulin Glarg,Human.Rec.Analog 100 Unit/Ml) 20 unit SUBCUT ONETIME ONE Stop: 02/19/21 09:23 Last Admin: 02/19/21 09:57 Dose: 20 units Documented by: Insulin Human Lispro (Insulin Lispro 100 Units/Ml 3 Ml Vial) 5 unit SUBCUT ONETIME ONE Stop: 02/17/21 04:15 Last Admin: 02/17/21 04:29 Dose: 5 units Documented by: Insulin Human Lispro (Insulin Lispro 100 Units/Ml 3 Ml Vial) 0 unit SUBCUT WITHMEALSANDBED [facility]; Protocol Last Admin: 02/18/21 09:04 Dose: Not Given Documented by: Insulin Human Lispro (Insulin Lispro 100 Units/Ml 3 Ml Vial) 14 unit SUBCUT ONETIME ONE Stop: 02/19/21 12:27 Last Admin: 02/19/21 12:36 Dose: Not Given Documented by: Insulin Human Lispro (Insulin Lispro 100 Units/Ml 3 Ml Vial) 12 unit SUBCUT ONETIME ONE Stop: 02/19/21 12:27 Last Admin: 02/19/21 12:41 Dose: 12 units Documented by: Insulin Human Regular (Insulin Regular, Human 100 Units/Ml 3 Ml Vial) 5 unit IV ONETIME ONE Stop: 02/16/21 14:22 Last Admin: 02/16/21 14:59 Dose: 5 unit Documented by: Insulin Human Regular (Insulin Regular, Human 100 Units/Ml 3 Ml Vial) 10 unit IV STAT STA Stop: 02/16/21 17:11 Last Admin: 02/16/21 17:19 Dose: 10 units Documented by: Insulin Human Regular (Insulin Regular, Human 100 Units/Ml 3 Ml Vial) 10 unit IV ONETIME ONE Stop: 02/16/21 18:13 Last Admin: 02/16/21 18:14 Dose: 10 units Documented by: Lisinopril (Lisinopril 5 Mg Tab) 2.5 mg PO DAILY [facility] Nitroglycerin (Nitroglycerin 0.4 Mg Tab.Sl) 0.4 mg SL ONETIME ONE Stop: 02/18/21 15:41 Last Admin: 02/18/21 15:47 Dose: 0.4 mg Documented by: Nystatin (Nystatin Topical Powder 30 Gm Bottle) 0 gm TOP Q8H [facility] Last Admin: 02/19/21 03:43 Dose: 1 applic Documented by: Potassium Chloride (Potassium Chloride 10 Meq Tab.Er) 40 meq PO ONETIME ONE Stop: 02/17/21 03:20 Last Admin: 02/17/21 07:20 Dose: Not Given Documented by: Potassium Chloride (Potassium Chloride 10 Meq Tab.Er) 40 meq PO ONETIME ONE Stop: 02/17/21 07:52 Last Admin: 02/17/21 08:43 Dose: 40 meq Documented by: Potassium Chloride (Potassium Chloride 10% 20 Meq/15 Ml Soln 15 Ml Ud Cup) 40 meq PO ONETIME ONE Stop: 02/17/21 17:01 Last Admin: 02/17/21 17:41 Dose: 40 meq Documented by: Sodium Bicarbonate (Sodium Bicarbonate 8.4% 50 Meq/50 Ml Syringe) 50 meq IVPUSH ONETIME ONE Stop: 02/16/21 15:04 Last Admin: 02/16/21 15:08 Dose: 50 meq Documented by: Sodium Bicarbonate (Sodium Bicarbonate 8.4% 50 Meq/50 Ml Syringe) 100 meq IVPUSH ONETIME ONE Stop: 02/16/21 17:24 Last Admin: 02/16/21 17:49 Dose: 100 meq Documented by: Zolpidem Tartrate (Zolpidem 5 Mg Tab) 5 mg PO ONETIME ONE Stop: 02/18/21 22:06 Last Admin: 02/18/21 22:17 Dose: 5 mg Documented by: Zolpidem Tartrate (Zolpidem 5 Mg Tab) 5 mg PO ONETIME ONE Stop: 02/20/21 00:18 Last Admin: 02/20/21 00:38 Dose: 5 mg Documented by: - Exam Urinary Catheter Total Time: 2Days 13Hours Physical Findings Comments:: General: Coreen is a 70-year-old woman in no acute distress. She is much more alert and talkative today Oropharynx is clear, mucous membranes are moist Neck: Supple, no lymphadenopathy. No elevated JVD noted Heart: Regular rate and rhythm, 1 out of 6 systolic murmur best heard over the left sternal border Lungs: Clear to auscultation throughout Abdomen: Soft, nontender to palpation, normal bowel sounds heard throughout - Patient Data Lab Results Last 24 hrs: Laboratory Results - last 24 hr 02/19/21 02/19/21 02/19/21 Range/Units 07:52 11:32 11:34 APTT 72.4 H (22.0-34.0) SEC Sodium (136-145) mmol/L Potassium (3.5-5.1) mmol/L Chloride (98-107) mmol/L Carbon Dioxide (21-32) mmol/L Anion Gap (7-13) mEq/L BUN (7-18) mg/dL Creatinine (0.55-1.02) mg/dL Est Cr Clr Drug Dosing mL/min Estimated GFR (MDRD) BUN/Creatinine Ratio (No establ ref range) Glucose (70-99) mg/dL POC Glucose 328 H 401 H* (70-99) mg/dL Hemoglobin A1c (<5.7) % Calcium (8.5-10.1) mg/dL Iron (50-170) ug/dL TIBC (250-450) ug/dL % Saturation (20.0-50.0) % Total Bilirubin (0.2-1.0) mg/dL AST (15-37) U/L ALT (14-59) U/L Alkaline Phosphatase (46-116) U/L Total Protein (6.4-8.2) g/dL Albumin (3.4-5.0) g/dL Globulin Albumin/Globulin Ratio 02/19/21 02/19/21 02/20/21 Range/Units 17:04 20:31 05:50 APTT (22.0-34.0) SEC Sodium (136-145) mmol/L Potassium (3.5-5.1) mmol/L Chloride (98-107) mmol/L Carbon Dioxide (21-32) mmol/L Anion Gap (7-13) mEq/L BUN (7-18) mg/dL Creatinine (0.55-1.02) mg/dL Est Cr Clr Drug Dosing mL/min Estimated GFR (MDRD) BUN/Creatinine Ratio (No establ ref range) Glucose (70-99) mg/dL POC Glucose 255 H 154 H (70-99) mg/dL Hemoglobin A1c 11.0 H (<5.7) % Calcium (8.5-10.1) mg/dL Iron (50-170) ug/dL TIBC (250-450) ug/dL % Saturation (20.0-50.0) % Total Bilirubin (0.2-1.0) mg/dL AST (15-37) U/L ALT (14-59) U/L Alkaline Phosphatase (46-116) U/L Total Protein (6.4-8.2) g/dL Albumin (3.4-5.0) g/dL Globulin Albumin/Globulin Ratio 02/20/21 02/20/21 Range/Units 05:50 05:50 APTT (22.0-34.0) SEC Sodium 145 (136-145) mmol/L Potassium 3.4 L (3.5-5.1) mmol/L Chloride 114 H (98-107) mmol/L Carbon Dioxide 23 (21-32) mmol/L Anion Gap 11.4 (7-13) mEq/L BUN 20 H (7-18) mg/dL Creatinine 0.87 (0.55-1.02) mg/dL Est Cr Clr Drug Dosing 59.35 mL/min Estimated GFR (MDRD) > 60 BUN/Creatinine Ratio 23.0 (No establ ref range) Glucose 66 L (70-99) mg/dL POC Glucose (70-99) mg/dL Hemoglobin A1c (<5.7) % Calcium 7.9 L (8.5-10.1) mg/dL Iron 37 L (50-170) ug/dL TIBC 259 (250-450) ug/dL % Saturation 14.3 L (20.0-50.0) % Total Bilirubin 0.3 (0.2-1.0) mg/dL AST 9 L (15-37) U/L ALT 16 (14-59) U/L Alkaline Phosphatase 166 H (46-116) U/L Total Protein 4.8 L (6.4-8.2) g/dL Albumin 1.8 L (3.4-5.0) g/dL Globulin 3.0 Albumin/Globulin Ratio 0.60 Result Diagrams: 02/19/21 05:25 02/20/21 05:50 Lorenzo Results Last 24 hrs: Microbiology 02/16/21 22:58 Clostridioides difficile (PCR) - Final Stool / Feces Clostridioides difficile Toxin Assay - Final 02/16/21 14:03 Urine Culture - Final Urine, Catheterized Escherichia Coli Providencia Alcalifaciens Sepsis Event Note - Evaluation Sepsis Screening Result: No Definite Risk - Focused Exam Vital Signs: Vital Signs Temp Temp Pulse Resp BP Pulse Ox 02/20/21 04:00 98.2 F 71 22 H 118/67 93 L 02/20/21 00:00 98.3 F 69 21 H 117/64 93 L 02/19/21 20:00 98.5 F 85 20 124/67 96 - Problem List & Annotations (1) Acute coronary syndrome with high troponin SNOMED Code(s): 618516889, 448340341 Code(s): I24.9 - ACUTE ISCHEMIC HEART DISEASE, UNSPECIFIED Status: Acute Current Visit: Yes (2) Failure to thrive SNOMED Code(s): 72890777 Code(s): UIX6612 - Status: Acute Current Visit: Yes (3) Unable to walk SNOMED Code(s): 419477125 Code(s): R26.2 - DIFFICULTY IN WALKING, NOT ELSEWHERE CLASSIFIED Status: Acute Current Visit: Yes (4) DKA (diabetic ketoacidosis) SNOMED Code(s): 219482350, 571166169 Code(s): E11.10 - TYPE 2 DIABETES MELLITUS WITH KETOACIDOSIS WITHOUT COMA Status: Acute Current Visit: No Qualifiers: Diabetes mellitus type: type 2 Diabetes mellitus complication detail: without coma Qualified Code(s): E11.10 - Type 2 diabetes mellitus with ketoacidosis without coma (5) Weakness SNOMED Code(s): 72937431 Code(s): R53.1 - WEAKNESS Status: Acute Current Visit: No - Problem List Review Problem List Initiated/Reviewed/Updated: Yes - My Orders Last 24 Hours: My Active Orders 02/19/21 10:52 Blood Glucose Check, Bedside [RC] QIDACANDBED 02/19/21 11:00 Levofloxacin/Dextrose 5%-Water [Levaquin in D5W 750 MG/150 ML] 750 mg Premix Bag 1 bag IV Q24H 02/19/21 Lunch 2 Gram Sodium Diet [DIET] Consistent Carbohydrate Diet [DIET] Insulin Lispro [HumaLOG] See Protocol SUBCUT WITHMEALSANDBED 02/19/21 14:00 Nystatin [Nystop] 0 gm TOP Q8HR 02/19/21 18:00 carvediloL [Coreg] 3.125 mg PO BIDMEALS 02/19/21 21:00 Ezetimibe [Zetia] 10 mg PO BEDTIME Insulin Glarg,Human.Rec.Analog [LantUS] 40 unit SUBCUT BEDTIME 02/20/21 09:00 lisinopriL [Prinivil] 10 mg PO DAILY - Assessment Assessment:: Assessment/Plan: 1. 70-year-old woman with severe metabolic acidosis secondary to diabetic ketoacidosis, resolved 2. Elevated troponin without ST elevation or ST depression on EKG; presumed to be either acute coronary syndrome or non-STEMI -I discussed her case with Dr. Baker, button breaker on-call in [place]. Since she is doing well clinically, she is no longer in need of an emergent angiogram. He recommended medical management, with prompt outpatient follow-up in [place] -With her history of statin intolerance, will start ezetimibe 10 mg daily -Lisinopril, 10 mg daily, secondary to both her NSTEMI as well as diabetes sarina elder -Coreg, 3.125 mg twice daily. If she tolerates this, we will increase her to a more therapeutic level -Heparin drip will be discontinued today 3. Insulin-dependent diabetes mellitus, with diabetic ketoacidosis, now stabilized -Hemoglobin A1c was 7.2 -We will restart her 40 units of Lantus at bedtime -Restart insulin sliding scale of lispro at mealtime and at at bedtime -Dietary will assist with her nutrition and meals, due to her multiple medical issues at this time 4. Nonambulatory status; failure to thrive -Based on her presenting history, it is very clear that she is absolutely unsafe at home. She cannot care for herself, and it is very unclear whether she has any kind of caregivers available at home. Unless things improved significantly clinically for her, I do not feel would be safe to discharge her to home -Nursing will work with [facility] social [employer] on the vulnerable adult case already submitted -If she does well with today, will most likely have her start physical and occupational therapy tomorrow, both for treatment and for their full assessment per her safety at home 5. VTE prophylaxis: Since she received almost 12 hours of heparin today, will start Lovenox, 40 mg daily in the a.m.
[2021-02-20] MEDS ORDERED: Calcium Chloride 10% 1 GM/10 ML Syringe IVPUSH ONE (07:20)
[2021-02-20] MEDS ORDERED: Potassium Chloride 20 MEQ in Premix Bag 1 BAG IV ONE (07:23)
[2021-02-20] MEDS ORDERED: Calcium Gluconate 1 GM in Sodium Chloride 0.9% 100 ML IV ONE (07:30)
[2021-02-20] MEDS ORDERED: 50% Dextrose in Water 50 ML Syringe ONE (07:40)
[2021-02-20] MEDS: 50% Dextrose in Water 50 ML Syringe IVPUSH PRN (07:47)
[2021-02-20] MEDS: Carvedilol 3.125 MG Tab PO SCH ×2 (08:07→18:09)
[2021-02-20] MEDS: Lisinopril 10 MG Tab PO SCH (08:07)
[2021-02-20] MEDS: Clopidogrel 75 MG Tab PO SCH (08:07)
[2021-02-20] MEDS: Aspirin 81 MG Tab.EC PO SCH (08:07)
[2021-02-20] MEDS: Insulin Lispro 100 Units/ML 3 ML Vial SUBCUT SCH ×4 (08:20→21:40)
[2021-02-20] MEDS ORDERED: Lisinopril 5 MG Tab PO SCH (09:00)
[2021-02-20] MEDS: Levofloxacin/Dextrose 5%-Water 750 MG in Premix Bag 1 BAG IV SCH (11:04)
[2021-02-20] MEDS: Ferrous Sulfate 325 MG Tab PO SCH (11:04)
--- NOTE | 2021-02-20 17:08 | PCM.PN ---
- General Info Date of Service: 02/20/21 Admission Dx/Problem (Free Text): Admission Diagnosis/Problem Admission Diagnosis/Problem Diabetic ketoacidosis without coma Subjective Update: Coreen is doing well today. She has had no further episodes of chest pressure or pain. Nursing reports no concerns at this time. On rounds this morning, she was completely against the idea of being sent to a alf from the hospital, even after we talked about the fact that she cannot walk and cannot care for herself. Nursing reports that she had a little bit higher blood sugars yesterday, sliding scale was implemented to control this - Patient Data Vitals - Most Recent: Last Vital Signs Temp 97.8 F 02/20/21 11:42 Pulse 69 02/20/21 11:42 Resp 20 02/20/21 11:42 BP 120/68 02/20/21 11:42 Pulse Ox 96 02/20/21 11:42 Weight - Most Recent: 172 lb 6.424 oz I&O - Last 24 Hours: Intake & Output 02/20/21 02/20/21 02/20/21 06:59 14:59 22:59 Intake Total 460 360 Balance 460 360 Lab Results Last 24 Hours: Laboratory Results - last 24 hr 02/19/21 02/19/21 02/20/21 Range/Units 17:04 20:31 05:50 Sodium (136-145) mmol/L Potassium (3.5-5.1) mmol/L Chloride (98-107) mmol/L Carbon Dioxide (21-32) mmol/L Anion Gap (7-13) mEq/L BUN (7-18) mg/dL Creatinine (0.55-1.02) mg/dL Est Cr Clr Drug Dosing mL/min Estimated GFR (MDRD) BUN/Creatinine Ratio (No establ ref range) Glucose (70-99) mg/dL POC Glucose 255 H 154 H (70-99) mg/dL Hemoglobin A1c 11.0 H (<5.7) % Calcium (8.5-10.1) mg/dL Iron (50-170) ug/dL TIBC (250-450) ug/dL % Saturation (20.0-50.0) % Total Bilirubin (0.2-1.0) mg/dL AST (15-37) U/L ALT (14-59) U/L Alkaline Phosphatase (46-116) U/L Total Protein (6.4-8.2) g/dL Albumin (3.4-5.0) g/dL Globulin Albumin/Globulin Ratio 02/20/21 02/20/21 02/20/21 Range/Units 05:50 05:50 07:32 Sodium 145 (136-145) mmol/L Potassium 3.4 L (3.5-5.1) mmol/L Chloride 114 H (98-107) mmol/L Carbon Dioxide 23 (21-32) mmol/L Anion Gap 11.4 (7-13) mEq/L BUN 20 H (7-18) mg/dL Creatinine 0.87 (0.55-1.02) mg/dL Est Cr Clr Drug Dosing 59.35 mL/min Estimated GFR (MDRD) > 60 BUN/Creatinine Ratio 23.0 (No establ ref range) Glucose 66 L (70-99) mg/dL POC Glucose 38 L* (70-99) mg/dL Hemoglobin A1c (<5.7) % Calcium 7.9 L (8.5-10.1) mg/dL Iron 37 L (50-170) ug/dL TIBC 259 (250-450) ug/dL % Saturation 14.3 L (20.0-50.0) % Total Bilirubin 0.3 (0.2-1.0) mg/dL AST 9 L (15-37) U/L ALT 16 (14-59) U/L Alkaline Phosphatase 166 H (46-116) U/L Total Protein 4.8 L (6.4-8.2) g/dL Albumin 1.8 L (3.4-5.0) g/dL Globulin 3.0 Albumin/Globulin Ratio 0.60 02/20/21 02/20/21 02/20/21 Range/Units 08:06 11:35 12:58 Sodium (136-145) mmol/L Potassium (3.5-5.1) mmol/L Chloride (98-107) mmol/L Carbon Dioxide (21-32) mmol/L Anion Gap (7-13) mEq/L BUN (7-18) mg/dL Creatinine (0.55-1.02) mg/dL Est Cr Clr Drug Dosing mL/min Estimated GFR (MDRD) BUN/Creatinine Ratio (No establ ref range) Glucose (70-99) mg/dL POC Glucose 122 H 76 77 (70-99) mg/dL Hemoglobin A1c (<5.7) % Calcium (8.5-10.1) mg/dL Iron (50-170) ug/dL TIBC (250-450) ug/dL % Saturation (20.0-50.0) % Total Bilirubin (0.2-1.0) mg/dL AST (15-37) U/L ALT (14-59) U/L Alkaline Phosphatase (46-116) U/L Total Protein (6.4-8.2) g/dL Albumin (3.4-5.0) g/dL Globulin Albumin/Globulin Ratio 02/20/21 02/20/21 02/20/21 Range/Units 13:56 15:45 16:56 Sodium (136-145) mmol/L Potassium (3.5-5.1) mmol/L Chloride (98-107) mmol/L Carbon Dioxide (21-32) mmol/L Anion Gap (7-13) mEq/L BUN (7-18) mg/dL Creatinine (0.55-1.02) mg/dL Est Cr Clr Drug Dosing mL/min Estimated GFR (MDRD) BUN/Creatinine Ratio (No establ ref range) Glucose (70-99) mg/dL POC Glucose 80 101 H 111 H (70-99) mg/dL Hemoglobin A1c (<5.7) % Calcium (8.5-10.1) mg/dL Iron (50-170) ug/dL TIBC (250-450) ug/dL % Saturation (20.0-50.0) % Total Bilirubin (0.2-1.0) mg/dL AST (15-37) U/L ALT (14-59) U/L Alkaline Phosphatase (46-116) U/L Total Protein (6.4-8.2) g/dL Albumin (3.4-5.0) g/dL Globulin Albumin/Globulin Ratio Med Orders - Current: Current Medications Acetaminophen (Acetaminophen 500 Mg Tab) 500 mg PO Q4H PRN PRN Reason: Pain/Fever Last Admin: 02/19/21 21:44 Dose: 500 mg Documented by: Aspirin (Aspirin 81 Mg Tab.Ec) 81 mg PO DAILY ERIN Last Admin: 02/20/21 08:07 Dose: 81 mg Documented by: Carvedilol (Carvedilol 3.125 Mg Tab) 3.125 mg PO BIDMEALS [facility] Last Admin: 02/20/21 08:07 Dose: 3.125 mg Documented by: Clopidogrel Bisulfate (Clopidogrel 75 Mg Tab) 75 mg PO DAILY [facility] Last Admin: 02/20/21 08:07 Dose: 75 mg Documented by: Dextrose/Water (50% Dextrose In Water 50 Ml Syringe) 25 ml IVPUSH Q15M PRN PRN Reason: Hypoglycemia Last Admin: 02/20/21 07:47 Dose: 25 ml Documented by: Ezetimibe (Ezetimibe 10 Mg Tab) 10 mg PO BEDTIME [facility] Last Admin: 02/19/21 21:44 Dose: 10 mg Documented by: Ferrous Sulfate (Ferrous Sulfate 325 Mg Tab) 325 mg PO Q48H [facility] Last Admin: 02/20/21 11:04 Dose: 325 mg Documented by: Glucagon (Glucagon,Human Recombinant 1 Mg Vial) 1 mg IM Q15M PRN PRN Reason: Hypoglycemia Levofloxacin/Dextrose 750 mg/ (Premix) 150 mls @ 100 mls/hr IV Q24H [facility] Stop: 02/21/21 11:01 Last Admin: 02/20/21 11:04 Dose: 100 mls/hr Documented by: Insulin Glargine (Insulin Glarg,Human.Rec.Analog 100 Unit/Ml) 20 unit SUBCUT BEDTIME [facility] Insulin Human Lispro (Insulin Lispro 100 Units/Ml 3 Ml Vial) 0 unit SUBCUT WITHMEALSANDBED [facility]; Protocol Last Admin: 02/20/21 15:23 Dose: Not Given Documented by: Lisinopril (Lisinopril 10 Mg Tab) 10 mg PO DAILY [facility] Last Admin: 02/20/21 08:07 Dose: 10 mg Documented by: Melatonin (Melatonin 3 Mg Tab) 6 mg PO BEDTIME PRN PRN Reason: Sleep Last Admin: 02/19/21 21:43 Dose: 6 mg Documented by: Nystatin (Nystatin Topical Powder 30 Gm Bottle) 0 gm TOP Q8HR [facility] Last Admin: 02/20/21 16:31 Dose: 1 applic Documented by: Discontinued Medications Carvedilol (Carvedilol 6.25 Mg Tab) 6.25 mg PO ONETIME ONE Stop: 02/19/21 12:28 Last Admin: 02/19/21 12:36 Dose: Not Given Documented by: Clopidogrel Bisulfate (Clopidogrel 75 Mg Tab) 225 mg PO ONETIME STA Stop: 02/17/21 11:11 Last Admin: 02/17/21 11:24 Dose: 225 mg Documented by: Dextrose/Water (50% Dextrose In Water 50 Ml Syringe) 50 ml IVPUSH Q15M PRN PRN Reason: Hypoglycemia Dextrose/Water (50% Dextrose In Water 50 Ml Syringe) 50 ml IVPUSH Q15M PRN PRN Reason: Hypoglycemia Dextrose/Water (50% Dextrose In Water 50 Ml Syringe) 50 ml IVPUSH Q15M PRN PRN Reason: Hypoglycemia Dextrose/Water (50% Dextrose In Water 50 Ml Syringe) Confirm Administered Dose 50 ml .ROUTE .STK-MED ONE Stop: 02/20/21 07:41 Last Admin: 02/20/21 08:14 Dose: Not Given Documented by: Furosemide (Furosemide 20 Mg/2 Ml Vial) 20 mg IVPUSH ONETIME ONE Stop: 02/16/21 15:51 Last Admin: 02/16/21 15:54 Dose: 20 mg Documented by: Glucagon (Glucagon,Human Recombinant 1 Mg Vial) 1 mg IM Q15M PRN PRN Reason: Hypoglycemia Heparin Sodium (Porcine) (Heparin Sodium 5,000 Units/Ml Vial) 4,700 units IV ONETIME ONE Stop: 02/17/21 08:31 Last Admin: 02/17/21 08:34 Dose: 4,700 units Documented by: Heparin Sodium (Porcine) (Heparin Sodium 5,000 Units/Ml Vial) 1,000 units IVPUSH ONETIME ONE Stop: 02/17/21 22:56 Last Admin: 02/17/21 23:14 Dose: 1,000 units Documented by: Heparin Sodium (Porcine) (Heparin Sodium 5,000 Units/Ml Vial) 2,000 units IVPUSH .BOLUS ONE Stop: 02/18/21 09:18 Last Admin: 02/18/21 09:35 Dose: 2,000 units Documented by: Heparin Sodium (Porcine) (Heparin Sodium 5,000 Units/Ml Vial) 2,000 units IVPUSH ONETIME ONE Stop: 02/18/21 22:43 Last Admin: 02/18/21 22:55 Dose: 2,000 units Documented by: Sodium Chloride (Normal Saline) 1,000 mls @ 999 mls/hr IV .BOLUS ONE Stop: 02/16/21 15:00 Last Admin: 02/16/21 17:42 Dose: 999 mls/hr Documented by: Albumin Human (Buminate 5%) 250 mls @ 250 mls/hr IV ASDIRECTED ERIN Last Admin: 02/16/21 15:01 Dose: 250 mls/hr Documented by: Sodium Bicarbonate 100 meq/ (Dextrose/Water) 1,100 mls @ 100 mls/hr IV ONETIME ONE Stop: 02/17/21 02:02 Last Admin: 02/16/21 15:18 Dose: 100 mls/hr Documented by: Insulin Regular in 0.9 % NACL (Myxredlin In Ns 100 Unit/100 Ml) 100 unit in 100 mls @ 7.82 mls/hr IV TITRATE ERIN; Protocol Sodium Bicarbonate 100 meq/ (Dextrose/Water) 1,100 mls @ 999 mls/hr IV ONETIME ONE Stop: 02/16/21 18:27 Last Admin: 02/16/21 22:50 Dose: Not Given Documented by: Sodium Chloride (Normal Saline) 1,000 mls @ 250 mls/hr IV ASDIRECTED ERIN Insulin Regular in 0.9 % NACL (Myxredlin In Ns 100 Unit/100 Ml) 100 unit in 100 mls @ 7.82 mls/hr IV TITRATE ERIN; Protocol Last Titration: 02/17/21 02:36 Dose: 0 units/kg/hr, 0 mls/hr Documented by: Levofloxacin/Dextrose 500 mg/ (Premix) 100 mls @ 100 mls/hr IV Q24H ERIN Last Admin: 02/16/21 20:54 Dose: 100 mls/hr Documented by: Sodium Chloride (Normal Saline) 1,000 mls @ 1,000 mls/hr IV ASDIRECTED ERIN Stop: 02/16/21 19:59 Last Admin: 02/16/21 19:02 Dose: 1,000 mls/hr Documented by: Potassium Chloride/Sodium Chloride (Normal Saline With 40 Meq Kcl) 1,000 mls @ 250 mls/hr IV ASDIRECTED ERIN Last Admin: 02/17/21 01:48 Dose: 250 mls/hr Documented by: Sodium Bicarbonate 100 meq/ (Dextrose/Water) 1,100 mls @ 150 mls/hr IV ONETIME ONE Stop: 02/17/21 10:39 Last Infusion: 02/17/21 07:55 Dose: 50 mls/hr Documented by: Heparin Sodium/Sodium Chloride (Heparin 25,000 Units In 1/2 Ns 500 Ml) 25,000 units in 500 mls @ 18.768 mls/hr IV TITRATE ERIN; Protocol Last Admin: 02/19/21 03:31 Dose: 22 units/kg/hr, 34.408 mls/hr Documented by: Levofloxacin/Dextrose 500 mg/ (Premix) 100 mls @ 100 mls/hr IV Q48H ERIN Last Admin: 02/18/21 17:21 Dose: 100 mls/hr Documented by: Lactated Ringer's (Ringers, Lactated) 1,000 mls @ 125 mls/hr IV ASDIRECTED [facility] Last Admin: 02/19/21 05:45 Dose: 125 mls/hr Documented by: Potassium Chloride 20 meq/ (Premix) 100 mls @ 50 mls/hr IV ONETIME ONE Stop: 02/20/21 09:22 Last Admin: 02/20/21 08:00 Dose: 50 mls/hr Documented by: Calcium Gluconate 1 gm/ Sodium (Chloride) 110 mls @ 110 mls/hr IV ONETIME ONE Stop: 02/20/21 08:29 Last Admin: 02/20/21 08:14 Dose: 110 mls/hr Documented by: Insulin Glargine (Insulin Glarg,Human.Rec.Analog 100 Unit/Ml) 35 unit SUBCUT ONETIME ONE Stop: 02/17/21 04:13 Last Admin: 02/17/21 04:28 Dose: 35 units Documented by: Insulin Glargine (Insulin Glarg,Human.Rec.Analog 100 Unit/Ml) 20 unit SUBCUT ONETIME ONE Stop: 02/19/21 09:23 Last Admin: 02/19/21 09:57 Dose: 20 units Documented by: Insulin Glargine (Insulin Glarg,Human.Rec.Analog 100 Unit/Ml) 40 unit SUBCUT BEDTIME [facility] Last Admin: 02/19/21 21:47 Dose: 40 units Documented by: Insulin Human Lispro (Insulin Lispro 100 Units/Ml 3 Ml Vial) 5 unit SUBCUT ONE TIME ONE Stop: 02/17/21 04:15 Last Admin: 02/17/21 04:29 Dose: 5 units Documented by: Insulin Human Lispro (Insulin Lispro 100 Units/Ml 3 Ml Vial) 0 unit SUBCUT WITHMEALSANDBED [facility]; Protocol Last Admin: 02/18/21 09:04 Dose: Not Given Documented by: Insulin Human Lispro (Insulin Lispro 100 Units/Ml 3 Ml Vial) 14 unit SUBCUT ONETIME ONE Stop: 02/19/21 12:27 Last Admin: 02/19/21 12:36 Dose: Not Given Documented by: Insulin Human Lispro (Insulin Lispro 100 Units/Ml 3 Ml Vial) 12 unit SUBCUT ONETIME ONE Stop: 02/19/21 12:27 Last Admin: 02/19/21 12:41 Dose: 12 units Documented by: Insulin Human Regular (Insulin Regular, Human 100 Units/Ml 3 Ml Vial) 5 unit IV ONETIME ONE Stop: 02/16/21 14:22 Last Admin: 02/16/21 14:59 Dose: 5 unit Documented by: Insulin Human Regular (Insulin Regular, Human 100 Units/Ml 3 Ml Vial) 10 unit IV STAT STA Stop: 02/16/21 17:11 Last Admin: 02/16/21 17:19 Dose: 10 units Documented by: Insulin Human Regular (Insulin Regular, Human 100 Units/Ml 3 Ml Vial) 10 unit IV ONETIME ONE Stop: 02/16/21 18:13 Last Admin: 02/16/21 18:14 Dose: 10 units Documented by: Lisinopril (Lisinopril 5 Mg Tab) 2.5 mg PO DAILY [facility] Nitroglycerin (Nitroglycerin 0.4 Mg Tab.Sl) 0.4 mg SL ONETIME ONE Stop: 02/18/21 15:41 Last Admin: 02/18/21 15:47 Dose: 0.4 mg Documented by: Nystatin (Nystatin Topical Powder 30 Gm Bottle) 0 gm TOP Q8H [facility] Last Admin: 02/19/21 03:43 Dose: 1 applic Documented by: Potassium Chloride (Potassium Chloride 10 Meq Tab.Er) 40 meq PO ONETIME ONE Stop: 02/17/21 03:20 Last Admin: 02/17/21 07:20 Dose: Not Given Documented by: Potassium Chloride (Potassium Chloride 10 Meq Tab.Er) 40 meq PO ONETIME ONE Stop: 02/17/21 07:52 Last Admin: 02/17/21 08:43 Dose: 40 meq Documented by: Potassium Chloride (Potassium Chloride 10% 20 Meq/15 Ml Soln 15 Ml Ud Cup) 40 meq PO ONETIME ONE Stop: 02/17/21 17:01 Last Admin: 02/17/21 17:41 Dose: 40 meq Documented by: Sodium Bicarbonate (Sodium Bicarbonate 8.4% 50 Meq/50 Ml Syringe) 50 meq IVPUSH ONETIME ONE Stop: 02/16/21 15:04 Last Admin: 02/16/21 15:08 Dose: 50 meq Documented by: Sodium Bicarbonate (Sodium Bicarbonate 8.4% 50 Meq/50 Ml Syringe) 100 meq IVPUSH ONETIME ONE Stop: 02/16/21 17:24 Last Admin: 02/16/21 17:49 Dose: 100 meq Documented by: Zolpidem Tartrate (Zolpidem 5 Mg Tab) 5 mg PO ONETIME ONE Stop: 02/18/21 22:06 Last Admin: 02/18/21 22:17 Dose: 5 mg Documented by: Zolpidem Tartrate (Zolpidem 5 Mg Tab) 5 mg PO ONETIME ONE Stop: 02/20/21 00:18 Last Admin: 02/20/21 00:38 Dose: 5 mg Documented by: - Exam Urinary Catheter Total Time: 2Days 13Hours Physical Findings Comments:: General: Patient is a 70-year-old woman in no acute distress Oropharynx is clear, mucous membranes are moist Neck: Supple, no lymphadenopathy Heart: Regular rate and rhythm, 2 out of 6 systolic murmur best heard over the left apex Lungs: Clear to auscultation throughout Extremities: She is moving all of her extremities normally, although strength is 2 out of 5 with her lower extremities - Patient Data Lab Results Last 24 hrs: Laboratory Results - last 24 hr 02/19/21 02/19/21 02/20/21 Range/Units 17:04 20:31 05:50 Sodium (136-145) mmol/L Potassium (3.5-5.1) mmol/L Chloride (98-107) mmol/L Carbon Dioxide (21-32) mmol/L Anion Gap (7-13) mEq/L BUN (7-18) mg/dL Creatinine (0.55-1.02) mg/dL Est Cr Clr Drug Dosing mL/min Estimated GFR (MDRD) BUN/Creatinine Ratio (No establ ref range) Glucose (70-99) mg/dL POC Glucose 255 H 154 H (70-99) mg/dL Hemoglobin A1c 11.0 H (<5.7) % Calcium (8.5-10.1) mg/dL Iron (50-170) ug/dL TIBC (250-450) ug/dL % Saturation (20.0-50.0) % Total Bilirubin (0.2-1.0) mg/dL AST (15-37) U/L ALT (14-59) U/L Alkaline Phosphatase (46-116) U/L Total Protein (6.4-8.2) g/dL Albumin (3.4-5.0) g/dL Globulin Albumin/Globulin Ratio 02/20/21 02/20/21 02/20/21 Range/Units 05:50 05:50 07:32 Sodium 145 (136-145) mmol/L Potassium 3.4 L (3.5-5.1) mmol/L Chloride 114 H (98-107) mmol/L Carbon Dioxide 23 (21-32) mmol/L Anion Gap 11.4 (7-13) mEq/L BUN 20 H (7-18) mg/dL Creatinine 0.87 (0.55-1.02) mg/dL Est Cr Clr Drug Dosing 59.35 mL/min Estimated GFR (MDRD) > 60 BUN/Creatinine Ratio 23.0 (No establ ref range) Glucose 66 L (70-99) mg/dL POC Glucose 38 L* (70-99) mg/dL Hemoglobin A1c (<5.7) % Calcium 7.9 L (8.5-10.1) mg/dL Iron 37 L (50-170) ug/dL TIBC 259 (250-450) ug/dL % Saturation 14.3 L (20.0-50.0) % Total Bilirubin 0.3 (0.2-1.0) mg/dL AST 9 L (15-37) U/L ALT 16 (14-59) U/L Alkaline Phosphatase 166 H (46-116) U/L Total Protein 4.8 L (6.4-8.2) g/dL Albumin 1.8 L (3.4-5.0) g/dL Globulin 3.0 Albumin/Globulin Ratio 0.60 02/20/21 02/20/21 02/20/21 Range/Units 08:06 11:35 12:58 Sodium (136-145) mmol/L Potassium (3.5-5.1) mmol/L Chloride (98-107) mmol/L Carbon Dioxide (21-32) mmol/L Anion Gap (7-13) mEq/L BUN (7-18) mg/dL Creatinine (0.55-1.02) mg/dL Est Cr Clr Drug Dosing mL/min Estimated GFR (MDRD) BUN/Creatinine Ratio (No establ ref range) Glucose (70-99) mg/dL POC Glucose 122 H 76 77 (70-99) mg/dL Hemoglobin A1c (<5.7) % Calcium (8.5-10.1) mg/dL Iron (50-170) ug/dL TIBC (250-450) ug/dL % Saturation (20.0-50.0) % Total Bilirubin (0.2-1.0) mg/dL AST (15-37) U/L ALT (14-59) U/L Alkaline Phosphatase (46-116) U/L Total Protein (6.4-8.2) g/dL Albumin (3.4-5.0) g/dL Globulin Albumin/Globulin Ratio 02/20/21 02/20/21 02/20/21 Range/Units 13:56 15:45 16:56 Sodium (136-145) mmol/L Potassium (3.5-5.1) mmol/L Chloride (98-107) mmol/L Carbon Dioxide (21-32) mmol/L Anion Gap (7-13) mEq/L BUN (7-18) mg/dL Creatinine (0.55-1.02) mg/dL Est Cr Clr Drug Dosing mL/min Estimated GFR (MDRD) BUN/Creatinine Ratio (No establ ref range) Glucose (70-99) mg/dL POC Glucose 80 101 H 111 H (70-99) mg/dL Hemoglobin A1c (<5.7) % Calcium (8.5-10.1) mg/dL Iron (50-170) ug/dL TIBC (250-450) ug/dL % Saturation (20.0-50.0) % Total Bilirubin (0.2-1.0) mg/dL AST (15-37) U/L ALT (14-59) U/L Alkaline Phosphatase (46-116) U/L Total Protein (6.4-8.2) g/dL Albumin (3.4-5.0) g/dL Globulin Albumin/Globulin Ratio Result Diagrams: 02/23/21 05:45 02/23/21 05:45 Sepsis Event Note - Evaluation Sepsis Screening Result: No Definite Risk - Focused Exam Vital Signs: Vital Signs Temp Pulse Pulse Resp BP BP Pulse Ox 02/20/21 11:42 97.8 F 69 20 120/68 96 02/20/21 08:07 66 119/93 H 02/20/21 08:00 98 F 66 21 H 119/93 H 95 - Problem List & Annotations (1) Acute coronary syndrome with high troponin SNOMED Code(s): 256103978, 468001618 Code(s): I24.9 - ACUTE ISCHEMIC HEART DISEASE, UNSPECIFIED Status: Acute Current Visit: Yes (2) Failure to thrive SNOMED Code(s): 31187369 Code(s): MYQ3109 - Status: Acute Current Visit: Yes (3) Unable to walk SNOMED Code(s): 387373725 Code(s): R26.2 - DIFFICULTY IN WALKING, NOT ELSEWHERE CLASSIFIED Status: Acute Current Visit: Yes (4) DKA (diabetic ketoacidosis) SNOMED Code(s): 988388231, 510435445 Code(s): E11.10 - TYPE 2 DIABETES MELLITUS WITH KETOACIDOSIS WITHOUT COMA Status: Acute Current Visit: Yes Qualifiers: Diabetes mellitus type: type 2 Diabetes mellitus complication detail: without coma Qualified Code(s): E11.10 - Type 2 diabetes mellitus with ketoacidosis without coma (5) Weakness SNOMED Code(s): 69930651 Code(s): R53.1 - WEAKNESS Status: Acute Current Visit: No - Problem List Review Problem List Initiated/Reviewed/Updated: Yes - My Orders Last 24 Hours: My Active Orders 02/19/21 18:00 carvediloL [Coreg] 3.125 mg PO BIDMEALS 02/19/21 21:00 Ezetimibe [Zetia] 10 mg PO BEDTIME 02/20/21 07:20 Dietary Supplements [RC] BID 02/20/21 07:37 Dextrose 50% in Water 25 ml IVPUSH Q15M PRN 02/20/21 09:00 lisinopriL [Prinivil] 10 mg PO DAILY 02/20/21 09:30 Ferrous Sulfate 325 mg PO Q48H 02/20/21 21:00 Insulin Glarg,Human.Rec.Analog [LantUS] 20 unit SUBCUT BEDTIME - Assessment Assessment:: Assessment: 1. 70-year-old woman with acute coronary syndrome, resolved 2. Uncontrolled type 2 diabetes mellitus, insulin-dependent 3. Acute metabolic acidosis secondary to #1 and #2, resolved 4. Past history of cerebrovascular accident, leaving her with mobility issues and difficulty caring for herself and ADLs - Plan Plan:: 1. Continue sliding scale insulin as well as mealtime insulin and Lantus at 40 units at bedtime 2. Continue post ACS regimen, including Zetia, metoprolol, and lisinopril 3. We will have physical therapy working with her to do strengthening of her upper extremities, but we have been trying to communicate with Coreen that she will need most likely long-term admission to alf or assisted living 4. VTE prophylaxis: Lovenox, 40 mg subcu daily
[2021-02-20] MEDS: Enoxaparin 40 MG/0.4 ML Syringe SUBCUT SCH (18:09)
[2021-02-20] MEDS: Insulin Glarg,Human.Rec.Analog 100 Unit/ML SUBCUT SCH (21:20)
[2021-02-20] MEDS: Ezetimibe 10 MG Tab PO SCH (21:22)
[2021-02-20] MEDS: Zolpidem 5 MG Tab PO PRN (21:23)
[2021-02-21] MEDS: Acetaminophen 500 MG Tab PO PRN ×2 (03:09→08:50)
[2021-02-21] MEDS: Nystatin Topical Powder 30 GM Bottle TOP SCH ×3 (05:56→21:43)
[2021-02-21] MEDS: Carvedilol 3.125 MG Tab PO SCH ×2 (08:49→17:20)
[2021-02-21] MEDS: Clopidogrel 75 MG Tab PO SCH (08:51)
[2021-02-21] MEDS: Aspirin 81 MG Tab.EC PO SCH (08:52)
[2021-02-21] MEDS: Lisinopril 10 MG Tab PO SCH (08:52)
[2021-02-21] MEDS: Enoxaparin 40 MG/0.4 ML Syringe SUBCUT SCH (08:52)
[2021-02-21] MEDS: Insulin Lispro 100 Units/ML 3 ML Vial SUBCUT SCH ×4 (08:53→21:42)
[2021-02-21] MEDS: Levofloxacin/Dextrose 5%-Water 750 MG in Premix Bag 1 BAG IV SCH (11:15)
[2021-02-21] MEDS: Ezetimibe 10 MG Tab PO SCH (21:44)
[2021-02-21] MEDS: Zolpidem 5 MG Tab PO PRN (21:44)
[2021-02-21] MEDS: Insulin Glarg,Human.Rec.Analog 100 Unit/ML SUBCUT SCH (21:45)
[2021-02-22] MEDS: Melatonin 3 MG Tab PO PRN ×2 (00:27→21:29)
[2021-02-22] MEDS: Nystatin Topical Powder 30 GM Bottle TOP SCH ×3 (05:30→21:00)
[2021-02-22] MEDS: Insulin Lispro 100 Units/ML 3 ML Vial SUBCUT SCH ×4 (08:11→20:49)
[2021-02-22] MEDS: Carvedilol 3.125 MG Tab PO SCH ×2 (08:19→17:52)
[2021-02-22] MEDS: Lisinopril 10 MG Tab PO SCH (08:19)
[2021-02-22] MEDS: Aspirin 81 MG Tab.EC PO SCH (08:19)
[2021-02-22] MEDS: Clopidogrel 75 MG Tab PO SCH (08:20)
[2021-02-22] MEDS: Enoxaparin 40 MG/0.4 ML Syringe SUBCUT SCH (08:20)
[2021-02-22] MEDS: Ferrous Sulfate 325 MG Tab PO SCH (09:16)
[2021-02-22] MEDS: Insulin Glarg,Human.Rec.Analog 100 Unit/ML SUBCUT SCH (20:50)
[2021-02-22] MEDS: Ezetimibe 10 MG Tab PO SCH (20:51)
[2021-02-22] MEDS: Zolpidem 5 MG Tab PO PRN (21:29)
[2021-02-23] MEDS: Acetaminophen 500 MG Tab PO PRN (02:45)
[2021-02-23 06:34] LABS: CHLORIDE,CL 114 mmol/L (98-107); SODIUM,NA 145 mmol/L (136-145)
[2021-02-23] MEDS: Nystatin Topical Powder 30 GM Bottle TOP SCH ×3 (07:02→21:50)
[2021-02-23] MEDS: Insulin Lispro 100 Units/ML 3 ML Vial SUBCUT SCH ×4 (08:18→21:47)
[2021-02-23] MEDS: Lisinopril 10 MG Tab PO SCH (08:19)
[2021-02-23] MEDS: Aspirin 81 MG Tab.EC PO SCH (08:19)
[2021-02-23] MEDS: Clopidogrel 75 MG Tab PO SCH (08:19)
[2021-02-23] MEDS: Carvedilol 3.125 MG Tab PO SCH ×2 (08:20→17:21)
[2021-02-23] MEDS: Enoxaparin 40 MG/0.4 ML Syringe SUBCUT SCH (08:22)
[2021-02-23] MEDS ORDERED: Albumin Human 50 GM in Premix Bag 1 BAG IV ONE (11:22)
[2021-02-23] MEDS ORDERED: Furosemide 40 MG/4 ML VIAL IVPUSH ONE ×2 (11:22→16:00)
--- NOTE | 2021-02-23 19:48 | PCM.PN ---
- General Info Date of Service: 02/23/21 Admission Dx/Problem (Free Text): Admission Diagnosis/Problem Admission Diagnosis/Problem Diabetic ketoacidosis without coma Subjective Update: Coreen has been having increased periods of mild confusion. She has been somewhat disoriented at times, not knowing if it is morning or evening, and sometimes calling out for nursing. Nursing reports this morning that she is quite edematous in her upper extremities as well as her lower extremities. - Patient Data Vitals - Most Recent: Last Vital Signs Temp 97.5 F 02/23/21 16:00 Pulse 80 02/23/21 17:21 Resp 18 02/23/21 16:00 BP 143/77 H 02/23/21 17:21 Pulse Ox 97 02/23/21 16:00 Weight - Most Recent: 216 lb 12.8 oz I&O - Last 24 Hours: Intake & Output 02/23/21 02/23/21 02/23/21 06:59 14:59 22:59 Intake Total 350 675 625 Balance 350 675 625 Lab Results Last 24 Hours: Laboratory Results - last 24 hr 02/22/21 02/23/21 02/23/21 Range/Units 20:25 05:45 05:45 WBC 5.0 (5.0-10.0) 10^3/uL RBC 4.63 (4.2-5.4) 10^6/uL Hgb 10.4 L (12.0-16.0) g/dL Hct 32.9 L (37.0-47.0) % MCV 71.1 L (80-100) fL MCH 22.5 L (27.0-34.0) pg MCHC 31.6 L (33.0-35.0) g/dL Plt Count 202 (150-450) 10^3/uL Neut % (Auto) 61.6 (42.2-75.2) % Lymph % (Auto) 21.3 (20.5-50.1) % [place] % (Auto) 16.7 H (2-8) % Eos % (Auto) 0.2 L (1.0-3.0) % Baso % (Auto) 0.2 (0.0-1.0) % Sodium 145 (136-145) mmol/L Potassium 4.0 (3.5-5.1) mmol/L Chloride 114 H (98-107) mmol/L Carbon Dioxide 23 (21-32) mmol/L Anion Gap 12.0 (7-13) mEq/L BUN 17 (7-18) mg/dL Creatinine 0.68 (0.55-1.02) mg/dL Est Cr Clr Drug Dosing 75.93 mL/min Estimated GFR (MDRD) > 60 BUN/Creatinine Ratio 25.0 (No establ ref range) Glucose 136 H (70-99) mg/dL POC Glucose 236 H (70-99) mg/dL Calcium 7.8 L (8.5-10.1) mg/dL Total Bilirubin 0.2 (0.2-1.0) mg/dL AST 15 (15-37) U/L ALT 18 (14-59) U/L Alkaline Phosphatase 154 H (46-116) U/L Total Protein 5.0 L (6.4-8.2) g/dL Albumin 1.9 L (3.4-5.0) g/dL Globulin 3.1 Albumin/Globulin Ratio 0.61 02/23/21 02/23/21 02/23/21 Range/Units 08:00 10:53 16:47 WBC (5.0-10.0) 10^3/uL RBC (4.2-5.4) 10^6/uL Hgb (12.0-16.0) g/dL Hct (37.0-47.0) % MCV (80-100) fL MCH (27.0-34.0) pg MCHC (33.0-35.0) g/dL Plt Count (150-450) 10^3/uL Neut % (Auto) (42.2-75.2) % Lymph % (Auto) (20.5-50.1) % [place] % (Auto) (2-8) % Eos % (Auto) (1.0-3.0) % Baso % (Auto) (0.0-1.0) % Sodium (136-145) mmol/L Potassium (3.5-5.1) mmol/L Chloride (98-107) mmol/L Carbon Dioxide (21-32) mmol/L Anion Gap (7-13) mEq/L BUN (7-18) mg/dL Creatinine (0.55-1.02) mg/dL Est Cr Clr Drug Dosing mL/min Estimated GFR (MDRD) BUN/Creatinine Ratio (No establ ref range) Glucose (70-99) mg/dL POC Glucose 77 107 H 237 H (70-99) mg/dL Calcium (8.5-10.1) mg/dL Total Bilirubin (0.2-1.0) mg/dL AST (15-37) U/L ALT (14-59) U/L Alkaline Phosphatase (46-116) U/L Total Protein (6.4-8.2) g/dL Albumin (3.4-5.0) g/dL Globulin Albumin/Globulin Ratio Med Orders - Current: Current Medications Acetaminophen (Acetaminophen 500 Mg Tab) 500 mg PO Q4H PRN PRN Reason: Pain/Fever Last Admin: 02/23/21 02:45 Dose: 500 mg Documented by: Aspirin (Aspirin 81 Mg Tab.Ec) 81 mg PO DAILY [facility] Last Admin: 02/23/21 08:19 Dose: 81 mg Documented by: Carvedilol (Carvedilol 3.125 Mg Tab) 3.125 mg PO BIDMEALS [facility] Last Admin: 02/23/21 17:21 Dose: 3.125 mg Documented by: Clopidogrel Bisulfate (Clopidogrel 75 Mg Tab) 75 mg PO DAILY [facility] Last Admin: 02/23/21 08:19 Dose: 75 mg Documented by: Dextrose/Water (50% Dextrose In Water 50 Ml Syringe) 25 ml IVPUSH Q15M PRN PRN Reason: Hypoglycemia Last Admin: 02/20/21 07:47 Dose: 25 ml Documented by: Ezetimibe (Ezetimibe 10 Mg Tab) 10 mg PO BEDTIME [facility] Last Admin: 02/22/21 20:51 Dose: 10 mg Documented by: Enoxaparin Sodium (Enoxaparin 40 Mg/0.4 Ml Syringe) 40 mg SUBCUT DAILY [facility] Last Admin: 02/23/21 08:22 Dose: 40 mg Documented by: Ferrous Sulfate (Ferrous Sulfate 325 Mg Tab) 325 mg PO Q48H [facility] Last Admin: 02/22/21 09:16 Dose: 325 mg Documented by: Glucagon (Glucagon,Human Recombinant 1 Mg Vial) 1 mg IM Q15M PRN PRN Reason: Hypoglycemia Insulin Glargine (Insulin Glarg,Human.Rec.Analog 100 Unit/Ml) 20 unit SUBCUT BEDTIME [facility] Last Admin: 02/22/21 20:50 Dose: 20 units Documented by: Insulin Human Lispro (Insulin Lispro 100 Units/Ml 3 Ml Vial) 0 unit SUBCUT WITHMEALSANDBED [facility]; Protocol Last Admin: 02/23/21 17:25 Dose: 4 units Documented by: Lisinopril (Lisinopril 10 Mg Tab) 10 mg PO DAILY [facility] Last Admin: 02/23/21 08:19 Dose: 10 mg Documented by: Melatonin (Melatonin 3 Mg Tab) 6 mg PO BEDTIME PRN PRN Reason: Sleep Last Admin: 02/22/21 21:29 Dose: 6 mg Documented by: Nystatin (Nystatin Topical Powder 30 Gm Bottle) 0 gm TOP Q8HR [facility] Last Admin: 02/23/21 13:48 Dose: 1 applic Documented by: Zolpidem Tartrate (Zolpidem 5 Mg Tab) 5 mg PO BEDTIME PRN PRN Reason: Sleep Last Admin: 02/22/21 21:29 Dose: 5 mg Documented by: Discontinued Medications Carvedilol (Carvedilol 6.25 Mg Tab) 6.25 mg PO ONETIME ONE Stop: 02/19/21 12:28 Last Admin: 02/19/21 12:36 Dose: Not Given Documented by: Clopidogrel Bisulfate (Clopidogrel 75 Mg Tab) 225 mg PO ONETIME STA Stop: 02/17/21 11:11 Last Admin: 02/17/21 11:24 Dose: 225 mg Documented by: Dextrose/Water (50% Dextrose In Water 50 Ml Syringe) 50 ml IVPUSH Q15M PRN PRN Reason: Hypoglycemia Dextrose/Water (50% Dextrose In Water 50 Ml Syringe) 50 ml IVPUSH Q15M PRN PRN Reason: Hypoglycemia Dextrose/Water (50% Dextrose In Water 50 Ml Syringe) 50 ml IVPUSH Q15M PRN PRN Reason: Hypoglycemia Dextrose/Water (50% Dextrose In Water 50 Ml Syringe) Confirm Administered Dose 50 ml .ROUTE .STK-MED ONE Stop: 02/20/21 07:41 Last Admin: 02/20/21 08:14 Dose: Not Given Documented by: Furosemide (Furosemide 20 Mg/2 Ml Vial) 20 mg IVPUSH ONETIME ONE Stop: 02/16/21 15:51 Last Admin: 02/16/21 15:54 Dose: 20 mg Documented by: Furosemide (Furosemide 40 Mg/4 Ml Vial) 40 mg IVPUSH ONETIME ONE Stop: 02/23/21 16:01 Last Admin: 02/23/21 16:00 Dose: 40 mg Documented by: Glucagon (Glucagon,Human Recombinant 1 Mg Vial) 1 mg IM Q15M PRN PRN Reason: Hypoglycemia Heparin Sodium (Porcine) (Heparin Sodium 5,000 Units/Ml Vial) 4,700 units IV ONETIME ONE Stop: 02/17/21 08:31 Last Admin: 02/17/21 08:34 Dose: 4,700 units Documented by: Heparin Sodium (Porcine) (Heparin Sodium 5,000 Units/Ml Vial) 1,000 units IV PUSH ONETIME ONE Stop: 02/17/21 22:56 Last Admin: 02/17/21 23:14 Dose: 1,000 units Documented by: Heparin Sodium (Porcine) (Heparin Sodium 5,000 Units/Ml Vial) 2,000 units IVPUSH .BOLUS ONE Stop: 02/18/21 09:18 Last Admin: 02/18/21 09:35 Dose: 2,000 units Documented by: Heparin Sodium (Porcine) (Heparin Sodium 5,000 Units/Ml Vial) 2,000 units IVPUSH ONETIME ONE Stop: 02/18/21 22:43 Last Admin: 02/18/21 22:55 Dose: 2,000 units Documented by: Sodium Chloride (Normal Saline) 1,000 mls @ 999 mls/hr IV .BOLUS ONE Stop: 02/16/21 15:00 Last Admin: 02/16/21 17:42 Dose: 999 mls/hr Documented by: Albumin Human (Buminate 5%) 250 mls @ 250 mls/hr IV ASDIRECTED ERIN Last Admin: 02/16/21 15:01 Dose: 250 mls/hr Documented by: Sodium Bicarbonate 100 meq/ (Dextrose/Water) 1,100 mls @ 100 mls/hr IV ONETIME ONE Stop: 02/17/21 02:02 Last Admin: 02/16/21 15:18 Dose: 100 mls/hr Documented by: Insulin Regular in 0.9 % NACL (Myxredlin In Ns 100 Unit/100 Ml) 100 unit in 100 mls @ 7.82 mls/hr IV TITRATE ERIN; Protocol Sodium Bicarbonate 100 meq/ (Dextrose/Water) 1,100 mls @ 999 mls/hr IV ONETIME ONE Stop: 02/16/21 18:27 Last Admin: 02/16/21 22:50 Dose: Not Given Documented by: Sodium Chloride (Normal Saline) 1,000 mls @ 250 mls/hr IV ASDIRECTED ERIN Insulin Regular in 0.9 % NACL (Myxredlin In Ns 100 Unit/100 Ml) 100 unit in 100 mls @ 7.82 mls/hr IV TITRATE ERIN; Protocol Last Titration: 02/17/21 02:36 Dose: 0 units/kg/hr, 0 mls/hr Documented by: Levofloxacin/Dextrose 500 mg/ (Premix) 100 mls @ 100 mls/hr IV Q24H ERIN Last Admin: 02/16/21 20:54 Dose: 100 mls/hr Documented by: Sodium Chloride (Normal Saline) 1,000 mls @ 1,000 mls/hr IV ASDIRECTED ERIN Stop: 02/16/21 19:59 Last Admin: 02/16/21 19:02 Dose: 1,000 mls/hr Documented by: Potassium Chloride/Sodium Chloride (Normal Saline With 40 Meq Kcl) 1,000 mls @ 250 mls/hr IV ASDIRECTED ERIN Last Admin: 02/17/21 01:48 Dose: 250 mls/hr Documented by: Sodium Bicarbonate 100 meq/ (Dextrose/Water) 1,100 mls @ 150 mls/hr IV ONETIME ONE Stop: 02/17/21 10:39 Last Infusion: 02/17/21 07:55 Dose: 50 mls/hr Documented by: Heparin Sodium/Sodium Chloride (Heparin 25,000 Units In 1/2 Ns 500 Ml) 25,000 units in 500 mls @ 18.768 mls/hr IV TITRATE ERIN; Protocol Last Admin: 02/19/21 03:31 Dose: 22 units/kg/hr, 34.408 mls/hr Documented by: Levofloxacin/Dextrose 500 mg/ (Premix) 100 mls @ 100 mls/hr IV Q48H ERIN Last Admin: 02/18/21 17:21 Dose: 100 mls/hr Documented by: Lactated Ringer's (Ringers, Lactated) 1,000 mls @ 125 mls/hr IV ASDIRECTED ERIN Last Admin: 02/19/21 05:45 Dose: 125 mls/hr Documented by: Levofloxacin/Dextrose 750 mg/ (Premix) 150 mls @ 100 mls/hr IV Q24H ERIN Stop: 02/21/21 11:01 Last Admin: 02/21/21 11:15 Dose: 100 mls/hr Documented by: Potassium Chloride 20 meq/ (Premix) 100 mls @ 50 mls/hr IV ONETIME ONE Stop: 02/20/21 09:22 Last Admin: 02/20/21 08:00 Dose: 50 mls/hr Documented by: Calcium Gluconate 1 gm/ Sodium (Chloride) 110 mls @ 110 mls/hr IV ONETIME ONE Stop: 02/20/21 08:29 Last Admin: 02/20/21 08:14 Dose: 110 mls/hr Documented by: Albumin Human 50 gm/ Premix 200 mls @ 100 mls/hr IV NOW ONE Stop: 02/23/21 13:21 Last Admin: 02/23/21 12:12 Dose: 100 mls/hr Documented by: Insulin Glargine (Insulin Glarg,Human.Rec.Analog 100 Unit/Ml) 35 unit SUBCUT ONETIME ONE Stop: 02/17/21 04:13 Last Admin: 02/17/21 04:28 Dose: 35 units Documented by: Insulin Glargine (Insulin Glarg,Human.Rec.Analog 100 Unit/Ml) 20 unit SUBCUT ONETIME ONE Stop: 02/19/21 09:23 Last Admin: 02/19/21 09:57 Dose: 20 units Documented by: Insulin Glargine (Insulin Glarg,Human.Rec.Analog 100 Unit/Ml) 40 unit SUBCUT BEDTIME [facility] Last Admin: 02/19/21 21:47 Dose: 40 units Documented by: Insulin Human Lispro (Insulin Lispro 100 Units/Ml 3 Ml Vial) 5 unit SUBCUT ONETIME ONE Stop: 02/17/21 04:15 Last Admin: 02/17/21 04:29 Dose: 5 units Documented by: Insulin Human Lispro (Insulin Lispro 100 Units/Ml 3 Ml Vial) 0 unit SUBCUT WITHMEALSANDBED [facility]; Protocol Last Admin: 02/18/21 09:04 Dose: Not Given Documented by: Insulin Human Lispro (Insulin Lispro 100 Units/Ml 3 Ml Vial) 14 unit SUBCUT ONETIME ONE Stop: 02/19/21 12:27 Last Admin: 02/19/21 12:36 Dose: Not Given Documented by: Insulin Human Lispro (Insulin Lispro 100 Units/Ml 3 Ml Vial) 12 unit SUBCUT ONETIME ONE Stop: 02/19/21 12:27 Last Admin: 02/19/21 12:41 Dose: 12 units Documented by: Insulin Human Regular (Insulin Regular, Human 100 Units/Ml 3 Ml Vial) 5 unit IV ONETIME ONE Stop: 02/16/21 14:22 Last Admin: 02/16/21 14:59 Dose: 5 unit Documented by: Insulin Human Regular (Insulin Regular, Human 100 Units/Ml 3 Ml Vial) 10 unit IV STAT STA Stop: 02/16/21 17:11 Last Admin: 02/16/21 17:19 Dose: 10 units Documented by: Insulin Human Regular (Insulin Regular, Human 100 Units/Ml 3 Ml Vial) 10 unit IV ONETIME ONE Stop: 02/16/21 18:13 Last Admin: 02/16/21 18:14 Dose: 10 units Documented by: Lisinopril (Lisinopril 5 Mg Tab) 2.5 mg PO DAILY ERIN Nitroglycerin (Nitroglycerin 0.4 Mg Tab.Sl) 0.4 mg SL ONETIME ONE Stop: 02/18/21 15:41 Last Admin: 02/18/21 15:47 Dose: 0.4 mg Documented by: Nystatin (Nystatin Topical Powder 30 Gm Bottle) 0 gm TOP Q8H ERIN Last Admin: 02/19/21 03:43 Dose: 1 applic Documented by: Potassium Chloride (Potassium Chloride 10 Meq Tab.Er) 40 meq PO ONETIME ONE Stop: 02/17/21 03:20 Last Admin: 02/17/21 07:20 Dose: Not Given Documented by: Potassium Chloride (Potassium Chloride 10 Meq Tab.Er) 40 meq PO ONETIME ONE Stop: 02/17/21 07:52 Last Admin: 02/17/21 08:43 Dose: 40 meq Documented by: Potassium Chloride (Potassium Chloride 10% 20 Meq/15 Ml Soln 15 Ml Ud Cup) 40 meq PO ONETIME ONE Stop: 02/17/21 17:01 Last Admin: 02/17/21 17:41 Dose: 40 meq Documented by: Sodium Bicarbonate (Sodium Bicarbonate 8.4% 50 Meq/50 Ml Syringe) 50 meq IVPUSH ONETIME ONE Stop: 02/16/21 15:04 Last Admin: 02/16/21 15:08 Dose: 50 meq Documented by: Sodium Bicarbonate (Sodium Bicarbonate 8.4% 50 Meq/50 Ml Syringe) 100 meq IVPUSH ONETIME ONE Stop: 02/16/21 17:24 Last Admin: 02/16/21 17:49 Dose: 100 meq Documented by: Zolpidem Tartrate (Zolpidem 5 Mg Tab) 5 mg PO ONETIME ONE Stop: 02/18/21 22:06 Last Admin: 02/18/21 22:17 Dose: 5 mg Documented by: Zolpidem Tartrate (Zolpidem 5 Mg Tab) 5 mg PO ONETIME ONE Stop: 02/20/21 00:18 Last Admin: 02/20/21 00:38 Dose: 5 mg Documented by: - Exam Urinary Catheter Total Time: 2Days 13Hours Physical Findings Comments:: General: Coreen is a 70-year-old woman in no acute distress Oropharynx is clear, mucous membranes are moist Neck: Supple, no lymphadenopathy Heart: Regular rate and rhythm, 1 out of 6 to 2 out of 6 systolic murmur best heard over the left apex Lungs: Little bit of crackles at both bases, but overall good lung espino Extremities do have 2+ pitting edema today - Patient Data Lab Results Last 24 hrs: Laboratory Results - last 24 hr 02/22/21 02/23/21 02/23/21 Range/Units 20:25 05:45 05:45 WBC 5.0 (5.0-10.0) 10^3/uL RBC 4.63 (4.2-5.4) 10^6/uL Hgb 10.4 L (12.0-16.0) g/dL Hct 32.9 L (37.0-47.0) % MCV 71.1 L (80-100) fL MCH 22.5 L (27.0-34.0) pg MCHC 31.6 L (33.0-35.0) g/dL Plt Count 202 (150-450) 10^3/uL Neut % (Auto) 61.6 (42.2-75.2) % Lymph % (Auto) 21.3 (20.5-50.1) % [place] % (Auto) 16.7 H (2-8) % Eos % (Auto) 0.2 L (1.0-3.0) % Baso % (Auto) 0.2 (0.0-1.0) % Sodium 145 (136-145) mmol/L Potassium 4.0 (3.5-5.1) mmol/L Chloride 114 H (98-107) mmol/L Carbon Dioxide 23 (21-32) mmol/L Anion Gap 12.0 (7-13) mEq/L BUN 17 (7-18) mg/dL Creatinine 0.68 (0.55-1.02) mg/dL Est Cr Clr Drug Dosing 75.93 mL/min Estimated GFR (MDRD) > 60 BUN/Creatinine Ratio 25.0 (No establ ref range) Glucose 136 H (70-99) mg/dL POC Glucose 236 H (70-99) mg/dL Calcium 7.8 L (8.5-10.1) mg/dL Total Bilirubin 0.2 (0.2-1.0) mg/dL AST 15 (15-37) U/L ALT 18 (14-59) U/L Alkaline Phosphatase 154 H (46-116) U/L Total Protein 5.0 L (6.4-8.2) g/dL Albumin 1.9 L (3.4-5.0) g/dL Globulin 3.1 Albumin/Globulin Ratio 0.61 02/23/21 02/23/21 02/23/21 Range/Units 08:00 10:53 16:47 WBC (5.0-10.0) 10^3/uL RBC (4.2-5.4) 10^6/uL Hgb (12.0-16.0) g/dL Hct (37.0-47.0) % MCV (80-100) fL MCH (27.0-34.0) pg MCHC (33.0-35.0) g/dL Plt Count (150-450) 10^3/uL Neut % (Auto) (42.2-75.2) % Lymph % (Auto) (20.5-50.1) % [place] % (Auto) (2-8) % Eos % (Auto) (1.0-3.0) % Baso % (Auto) (0.0-1.0) % Sodium (136-145) mmol/L Potassium (3.5-5.1) mmol/L Chloride (98-107) mmol/L Carbon Dioxide (21-32) mmol/L Anion Gap (7-13) mEq/L BUN (7-18) mg/dL Creatinine (0.55-1.02) mg/dL Est Cr Clr Drug Dosing mL/min Estimated GFR (MDRD) BUN/Creatinine Ratio (No establ ref range) Glucose (70-99) mg/dL POC Glucose 77 107 H 237 H (70-99) mg/dL Calcium (8.5-10.1) mg/dL Total Bilirubin (0.2-1.0) mg/dL AST (15-37) U/L ALT (14-59) U/L Alkaline Phosphatase (46-116) U/L Total Protein (6.4-8.2) g/dL Albumin (3.4-5.0) g/dL Globulin Albumin/Globulin Ratio Result Diagrams: 02/24/21 05:40 02/24/21 05:40 Sepsis Event Note - Evaluation Sepsis Screening Result: No Definite Risk - Focused Exam Vital Signs: Vital Signs Temp Pulse Pulse Resp BP BP Pulse Ox 02/23/21 17:21 80 143/77 H 02/23/21 16:00 97.5 F 80 18 143/77 H 97 02/23/21 11:37 98.4 F 72 20 122/67 99 02/23/21 08:20 71 106/55 L 02/23/21 08:19 106/55 L 02/23/21 08:00 97 F 71 20 106/55 L 97 - Problem List & Annotations (1) Acute coronary syndrome with high troponin SNOMED Code(s): 377540753, 168951361 Code(s): I24.9 - ACUTE ISCHEMIC HEART DISEASE, UNSPECIFIED Status: Acute Current Visit: Yes (2) Failure to thrive SNOMED Code(s): 04696232 Code(s): OJL6946 - Status: Acute Current Visit: Yes (3) Unable to walk SNOMED Code(s): 423230375 Code(s): R26.2 - DIFFICULTY IN WALKING, NOT ELSEWHERE CLASSIFIED Status: Acute Current Visit: Yes (4) DKA (diabetic ketoacidosis) SNOMED Code(s): 484834518, 284125899 Code(s): E11.10 - TYPE 2 DIABETES MELLITUS WITH KETOACIDOSIS WITHOUT COMA Status: Acute Current Visit: Yes Qualifiers: Diabetes mellitus type: type 2 Diabetes mellitus complication detail: without coma Qualified Code(s): E11.10 - Type 2 diabetes mellitus with ketoacidosis without coma (5) Weakness SNOMED Code(s): 67220578 Code(s): R53.1 - WEAKNESS Status: Acute Current Visit: No (6) Congestive heart failure SNOMED Code(s): 77370540 Code(s): I50.9 - HEART FAILURE, UNSPECIFIED Status: Acute Current Visit: Yes Qualifiers: Heart failure type: unspecified Heart failure chronicity: acute on chronic Qualified Code(s): I50.9 - Heart failure, unspecified - Problem List Review Problem List Initiated/Reviewed/Updated: Yes - My Orders Last 24 Hours: My Active Orders 02/24/21 05:11 B-TYPE NATRIURETIC PEPTIDE,BNP [CHEM] AM CBC WITH AUTO DIFF [HEME] AM COMPREHENSIVE METABOLIC PN,CMP [CHEM] AM - Assessment Assessment:: Assessment: 1. 70-year-old woman with acute coronary syndrome, resolved 2. Uncontrolled type 2 diabetes mellitus, insulin-dependent 3. Acute metabolic acidosis secondary to #1 and #2, resolved 4. Past history of cerebrovascular accident, leaving her with mobility issues and difficulty caring for herself and ADLs VTE prophylaxis: Since she received almost 12 hours of heparin today, will start Lovenox, 40 mg daily in the a.m. - Plan Plan:: 1. Continue cardiac regimen of Zetia, lisinopril, and metoprolol -She is in some heart failure today, will administer some IV albumin and then diurese her with IV Lasix -We will have to watch her edema closely, her skin is already quite delicate, from her poor at home care 2. Insulin-dependent diabetes mellitus, with diabetic ketoacidosis, now stabilized -Hemoglobin A1c was 7.2 -We will restart her 40 units of Lantus at bedtime -Restart insulin sliding scale of lispro at mealtime and at at bedtime -Dietary will assist with her nutrition and meals, due to her multiple medical issues at this time 3. Nonambulatory status; failure to thrive -Based on her presenting history, it is very clear that she is absolutely unsafe at home. She cannot care for herself, and it is very unclear whether she has any kind of caregivers available at home. Unless things improved significantly clinically for her, I do not feel would be safe to discharge her to home -Nursing will work with [facility] social work on the vulnerable adult case already submitted -If she does well with today, will most likely have her start physical and occupational therapy tomorrow, both for treatment and for their full assessment per her safety at home
--- NOTE | 2021-02-23 21:26 | PCM.PN ---
- General Info Date of Service: 02/21/21 Admission Dx/Problem (Free Text): Admission Diagnosis/Problem Admission Diagnosis/Problem Diabetic ketoacidosis without coma Subjective Update: Coreen is doing fairly well, overall her condition is stable. We have had much better control with her blood sugars over the past 24 hours. On rounds this morning, she still voiced significant concerns about going to a assisted. She seemed to be open to the possible idea of going to a assisted for a short rehabilitation stay. - Patient Data Vitals - Most Recent: Last Vital Signs Temp 97.5 F 02/23/21 16:00 Pulse 80 02/23/21 17:21 Resp 18 02/23/21 16:00 BP 143/77 H 02/23/21 17:21 Pulse Ox 97 02/23/21 16:00 Weight - Most Recent: 216 lb 12.8 oz I&O - Last 24 Hours: Intake & Output 02/23/21 02/23/21 02/23/21 06:59 14:59 22:59 Intake Total 350 675 625 Balance 350 675 625 Lab Results Last 24 Hours: Laboratory Results - last 24 hr 02/23/21 02/23/21 02/23/21 Range/Units 05:45 05:45 08:00 WBC 5.0 (5.0-10.0) 10^3/uL RBC 4.63 (4.2-5.4) 10^6/uL Hgb 10.4 L (12.0-16.0) g/dL Hct 32.9 L (37.0-47.0) % MCV 71.1 L (80-100) fL MCH 22.5 L (27.0-34.0) pg MCHC 31.6 L (33.0-35.0) g/dL Plt Count 202 (150-450) 10^3/uL Neut % (Auto) 61.6 (42.2-75.2) % Lymph % (Auto) 21.3 (20.5-50.1) % Nolan % (Auto) 16.7 H (2-8) % Eos % (Auto) 0.2 L (1.0-3.0) % Baso % (Auto) 0.2 (0.0-1.0) % Sodium 145 (136-145) mmol/L Potassium 4.0 (3.5-5.1) mmol/L Chloride 114 H (98-107) mmol/L Carbon Dioxide 23 (21-32) mmol/L Anion Gap 12.0 (7-13) mEq/L BUN 17 (7-18) mg/dL Creatinine 0.68 (0.55-1.02) mg/dL Est Cr Clr Drug Dosing 75.93 mL/min Estimated GFR (MDRD) > 60 BUN/Creatinine Ratio 25.0 (No establ ref range) Glucose 136 H (70-99) mg/dL POC Glucose 77 (70-99) mg/dL Calcium 7.8 L (8.5-10.1) mg/dL Total Bilirubin 0.2 (0.2-1.0) mg/dL AST 15 (15-37) U/L ALT 18 (14-59) U/L Alkaline Phosphatase 154 H (46-116) U/L Total Protein 5.0 L (6.4-8.2) g/dL Albumin 1.9 L (3.4-5.0) g/dL Globulin 3.1 Albumin/Globulin Ratio 0.61 02/23/21 02/23/21 Range/Units 10:53 16:47 WBC (5.0-10.0) 10^3/uL RBC (4.2-5.4) 10^6/uL Hgb (12.0-16.0) g/dL Hct (37.0-47.0) % MCV (80-100) fL MCH (27.0-34.0) pg MCHC (33.0-35.0) g/dL Plt Count (150-450) 10^3/uL Neut % (Auto) (42.2-75.2) % Lymph % (Auto) (20.5-50.1) % Nolan % (Auto) (2-8) % Eos % (Auto) (1.0-3.0) % Baso % (Auto) (0.0-1.0) % Sodium (136-145) mmol/L Potassium (3.5-5.1) mmol/L Chloride (98-107) mmol/L Carbon Dioxide (21-32) mmol/L Anion Gap (7-13) mEq/L BUN (7-18) mg/dL Creatinine (0.55-1.02) mg/dL Est Cr Clr Drug Dosing mL/min Estimated GFR (MDRD) BUN/Creatinine Ratio (No establ ref range) Glucose (70-99) mg/dL POC Glucose 107 H 237 H (70-99) mg/dL Calcium (8.5-10.1) mg/dL Total Bilirubin (0.2-1.0) mg/dL AST (15-37) U/L ALT (14-59) U/L Alkaline Phosphatase (46-116) U/L Total Protein (6.4-8.2) g/dL Albumin (3.4-5.0) g/dL Globulin Albumin/Globulin Ratio Med Orders - Current: Current Medications Acetaminophen (Acetaminophen 500 Mg Tab) 500 mg PO Q4H PRN PRN Reason: Pain/Fever Last Admin: 02/23/21 02:45 Dose: 500 mg Documented by: Aspirin (Aspirin 81 Mg Tab.Ec) 81 mg PO DAILY [facility] Last Admin: 02/23/21 08:19 Dose: 81 mg Documented by: Carvedilol (Carvedilol 3.125 Mg Tab) 3.125 mg PO BIDMEALS [facility] Last Admin: 02/23/21 17:21 Dose: 3.125 mg Documented by: Clopidogrel Bisulfate (Clopidogrel 75 Mg Tab) 75 mg PO DAILY [facility] Last Admin: 02/23/21 08:19 Dose: 75 mg Documented by: Dextrose/Water (50% Dextrose In Water 50 Ml Syringe) 25 ml IVPUSH Q15M PRN PRN Reason: Hypoglycemia Last Admin: 02/20/21 07:47 Dose: 25 ml Documented by: Ezetimibe (Ezetimibe 10 Mg Tab) 10 mg PO BEDTIME [facility] Last Admin: 02/22/21 20:51 Dose: 10 mg Documented by: Enoxaparin Sodium (Enoxaparin 40 Mg/0.4 Ml Syringe) 40 mg SUBCUT DAILY [facility] Last Admin: 02/23/21 08:22 Dose: 40 mg Documented by: Ferrous Sulfate (Ferrous Sulfate 325 Mg Tab) 325 mg PO Q48H [facility] Last Admin: 02/22/21 09:16 Dose: 325 mg Documented by: Glucagon (Glucagon,Human Recombinant 1 Mg Vial) 1 mg IM Q15M PRN PRN Reason: Hypoglycemia Insulin Glargine (Insulin Glarg,Human.Rec.Analog 100 Unit/Ml) 20 unit SUBCUT BEDTIME [facility] Last Admin: 02/22/21 20:50 Dose: 20 units Documented by: Insulin Human Lispro (Insulin Lispro 100 Units/Ml 3 Ml Vial) 0 unit SUBCUT WITHMEALSANDBED [facility]; Protocol Last Admin: 02/23/21 17:25 Dose: 4 units Documented by: Lisinopril (Lisinopril 10 Mg Tab) 10 mg PO DAILY [facility] Last Admin: 02/23/21 08:19 Dose: 10 mg Documented by: Melatonin (Melatonin 3 Mg Tab) 6 mg PO BEDTIME PRN PRN Reason: Sleep Last Admin: 02/22/21 21:29 Dose: 6 mg Documented by: Nystatin (Nystatin Topical Powder 30 Gm Bottle) 0 gm TOP Q8HR [facility] Last Admin: 02/23/21 13:48 Dose: 1 applic Documented by: Zolpidem Tartrate (Zolpidem 5 Mg Tab) 5 mg PO BEDTIME PRN PRN Reason: Sleep Last Admin: 02/22/21 21:29 Dose: 5 mg Documented by: Discontinued Medications Carvedilol (Carvedilol 6.25 Mg Tab) 6.25 mg PO ONETIME ONE Stop: 02/19/21 12:28 Last Admin: 02/19/21 12:36 Dose: Not Given Documented by: Clopidogrel Bisulfate (Clopidogrel 75 Mg Tab) 225 mg PO ONETIME STA Stop: 02/17/21 11:11 Last Admin: 02/17/21 11:24 Dose: 225 mg Documented by: Dextrose/Water (50% Dextrose In Water 50 Ml Syringe) 50 ml IVPUSH Q15M PRN PRN Reason: Hypoglycemia Dextrose/Water (50% Dextrose In Water 50 Ml Syringe) 50 ml IVPUSH Q15M PRN PRN Reason: Hypoglycemia Dextrose/Water (50% Dextrose In Water 50 Ml Syringe) 50 ml IVPUSH Q15M PRN PRN Reason: Hypoglycemia Dextrose/Water (50% Dextrose In Water 50 Ml Syringe) Confirm Administered Dose 50 ml .ROUTE .STK-MED ONE Stop: 02/20/21 07:41 Last Admin: 02/20/21 08:14 Dose: Not Given Documented by: Furosemide (Furosemide 20 Mg/2 Ml Vial) 20 mg IVPUSH ONETIME ONE Stop: 02/16/21 15:51 Last Admin: 02/16/21 15:54 Dose: 20 mg Documented by: Furosemide (Furosemide 40 Mg/4 Ml Vial) 40 mg IVPUSH ONETIME ONE Stop: 02/23/21 16:01 Last Admin: 02/23/21 16:00 Dose: 40 mg Documented by: Glucagon (Glucagon,Human Recombinant 1 Mg Vial) 1 mg IM Q15M PRN PRN Reason: Hypoglycemia Heparin Sodium (Porcine) (Heparin Sodium 5,000 Units/Ml Vial) 4,700 units IV ONETIME ONE Stop: 02/17/21 08:31 Last Admin: 02/17/21 08:34 Dose: 4,700 units Documented by: Heparin Sodium (Porcine) (Heparin Sodium 5,000 Units/Ml Vial) 1,000 units IVPUSH ONETIME ONE Stop: 02/17/21 22:56 Last Admin: 02/17/21 23:14 Dose: 1,000 units Documented by: Heparin Sodium (Porcine) (Heparin Sodium 5,000 Units/Ml Vial) 2,000 units IVPUSH .BOLUS ONE Stop: 02/18/21 09:18 Last Admin: 02/18/21 09:35 Dose: 2,000 units Documented by: Heparin Sodium (Porcine) (Heparin Sodium 5,000 Units/Ml Vial) 2,000 units IVPUSH ONETIME ONE Stop: 02/18/21 22:43 Last Admin: 02/18/21 22:55 Dose: 2,000 units Documented by: Sodium Chloride (Normal Saline) 1,000 mls @ 999 mls/hr IV .BOLUS ONE Stop: 02/16/21 15:00 Last Admin: 02/16/21 17:42 Dose: 999 mls/hr Documented by: Albumin Human (Buminate 5%) 250 mls @ 250 mls/hr IV ASDIRECTED ERIN Last Admin: 02/16/21 15:01 Dose: 250 mls/hr Documented by: Sodium Bicarbonate 100 meq/ (Dextrose/Water) 1,100 mls @ 100 mls/hr IV ONETIME ONE Stop: 02/17/21 02:02 Last Admin: 02/16/21 15:18 Dose: 100 mls/hr Documented by: Insulin Regular in 0.9 % NACL (Myxredlin In Ns 100 Unit/100 Ml) 100 unit in 100 mls @ 7.82 mls/hr IV TITRATE ERIN; Protocol Sodium Bicarbonate 100 meq/ (Dextrose/Water) 1,100 mls @ 999 mls/hr IV ONETIME ONE Stop: 02/16/21 18:27 Last Admin: 02/16/21 22:50 Dose: Not Given Documented by: Sodium Chloride (Normal Saline) 1,000 mls @ 250 mls/hr IV ASDIRECTED ERIN Insulin Regular in 0.9 % NACL (Myxredlin In Ns 100 Unit/100 Ml) 100 unit in 100 mls @ 7.82 mls/hr IV TITRATE ERIN; Protocol Last Titration: 02/17/21 02:36 Dose: 0 units/kg/hr, 0 mls/hr Documented by: Levofloxacin/Dextrose 500 mg/ (Premix) 100 mls @ 100 mls/hr IV Q24H ERIN Last Admin: 02/16/21 20:54 Dose: 100 mls/hr Documented by: Sodium Chloride (Normal Saline) 1,000 mls @ 1,000 mls/hr IV ASDIRECTED ERIN Stop: 02/16/21 19:59 Last Admin: 02/16/21 19:02 Dose: 1,000 mls/hr Documented by: Potassium Chloride/Sodium Chloride (Normal Saline With 40 Meq Kcl) 1,000 mls @ 250 mls/hr IV ASDIRECTED ERIN Last Admin: 02/17/21 01:48 Dose: 250 mls/hr Documented by: Sodium Bicarbonate 100 meq/ (Dextrose/Water) 1,100 mls @ 150 mls/hr IV ONETIME ONE Stop: 02/17/21 10:39 Last Infusion: 02/17/21 07:55 Dose: 50 mls/hr Documented by: Heparin Sodium/Sodium Chloride (Heparin 25,000 Units In 1/2 Ns 500 Ml) 25,000 units in 500 mls @ 18.768 mls/hr IV TITRATE ERIN; Protocol Last Admin: 02/19/21 03:31 Dose: 22 units/kg/hr, 34.408 mls/hr Documented by: Levofloxacin/Dextrose 500 mg/ (Premix) 100 mls @ 100 mls/hr IV Q48H ERIN Last Admin: 02/18/21 17:21 Dose: 100 mls/hr Documented by: Lactated Ringer's (Ringers, Lactated) 1,000 mls @ 125 mls/hr IV ASDIRECTED ERIN Last Admin: 02/19/21 05:45 Dose: 125 mls/hr Documented by: Levofloxacin/Dextrose 750 mg/ (Premix) 150 mls @ 100 mls/hr IV Q24H ERIN Stop: 02/21/21 11:01 Last Admin: 02/21/21 11:15 Dose: 100 mls/hr Documented by: Potassium Chloride 20 meq/ (Premix) 100 mls @ 50 mls/hr IV ONETIME ONE Stop: 02/20/21 09:22 Last Admin: 02/20/21 08:00 Dose: 50 mls/hr Documented by: Calcium Gluconate 1 gm/ Sodium (Chloride) 110 mls @ 110 mls/hr IV ONETIME ONE Stop: 02/20/21 08:29 Last Admin: 02/20/21 08:14 Dose: 110 mls/hr Documented by: Albumin Human 50 gm/ Premix 200 mls @ 100 mls/hr IV NOW ONE Stop: 02/23/21 13:21 Last Admin: 02/23/21 12:12 Dose: 100 mls/hr Documented by: Insulin Glargine (Insulin Glarg,Human.Rec.Analog 100 Unit/Ml) 35 unit SUBCUT ONETIME ONE Stop: 02/17/21 04:13 Last Admin: 02/17/21 04:28 Dose: 35 units Documented by: Insulin Glargine (Insulin Glarg,Human.Rec.Analog 100 Unit/Ml) 20 unit SUBCUT ONETIME ONE Stop: 02/19/21 09:23 Last Admin: 02/19/21 09:57 Dose: 20 units Documented by: Insulin Glargine (Insulin Glarg,Human.Rec.Analog 100 Unit/Ml) 40 unit SUBCUT BEDTIME [facility] Last Admin: 02/19/21 21:47 Dose: 40 units Documented by: Insulin Human Lispro (Insulin Lispro 100 Units/Ml 3 Ml Vial) 5 unit SUBCUT ONETIME ONE Stop: 02/17/21 04:15 Last Admin: 02/17/21 04:29 Dose: 5 units Documented by: Insulin Human Lispro (Insulin Lispro 100 Units/Ml 3 Ml Vial) 0 unit SUBCUT WITHMEALSANDBED [facility]; Protocol Last Admin: 02/18/21 09:04 Dose: Not Given Documented by: Insulin Human Lispro (Insulin Lispro 100 Units/Ml 3 Ml Vial) 14 unit SUBCUT ONETIME ONE Stop: 02/19/21 12:27 Last Admin: 02/19/21 12:36 Dose: Not Given Documented by: Insulin Human Lispro (Insulin Lispro 100 Units/Ml 3 Ml Vial) 12 unit SUBCUT ONETIME ONE Stop: 02/19/21 12:27 Last Admin: 02/19/21 12:41 Dose: 12 units Documented by: Insulin Human Regular (Insulin Regular, Human 100 Units/Ml 3 Ml Vial) 5 unit IV ONETIME ONE Stop: 02/16/21 14:22 Last Admin: 02/16/21 14:59 Dose: 5 unit Documented by: Insulin Human Regular (Insulin Regular, Human 100 Units/Ml 3 Ml Vial) 10 unit IV STAT STA Stop: 02/16/21 17:11 Last Admin: 02/16/21 17:19 Dose: 10 units Documented by: Insulin Human Regular (Insulin Regular, Human 100 Units/Ml 3 Ml Vial) 10 unit IV ONETIME ONE Stop: 02/16/21 18:13 Last Admin: 02/16/21 18:14 Dose: 10 units Documented by: Lisinopril (Lisinopril 5 Mg Tab) 2.5 mg PO DAILY ERIN Nitroglycerin (Nitroglycerin 0.4 Mg Tab.Sl) 0.4 mg SL ONETIME ONE Stop: 02/18/21 15:41 Last Admin: 02/18/21 15:47 Dose: 0.4 mg Documented by: Nystatin (Nystatin Topical Powder 30 Gm Bottle) 0 gm TOP Q8H [facility] Last Admin: 02/19/21 03:43 Dose: 1 applic Documented by: Potassium Chloride (Potassium Chloride 10 Meq Tab.Er) 40 meq PO ONETIME ONE Stop: 02/17/21 03:20 Last Admin: 02/17/21 07:20 Dose: Not Given Documented by: Potassium Chloride (Potassium Chloride 10 Meq Tab.Er) 40 meq PO ONETIME ONE Stop: 02/17/21 07:52 Last Admin: 02/17/21 08:43 Dose: 40 meq Documented by: Potassium Chloride (Potassium Chloride 10% 20 Meq/15 Ml Soln 15 Ml Ud Cup) 40 meq PO ONETIME ONE Stop: 02/17/21 17:01 Last Admin: 02/17/21 17:41 Dose: 40 meq Documented by: Sodium Bicarbonate (Sodium Bicarbonate 8.4% 50 Meq/50 Ml Syringe) 50 meq IVPUSH ONETIME ONE Stop: 02/16/21 15:04 Last Admin: 02/16/21 15:08 Dose: 50 meq Documented by: Sodium Bicarbonate (Sodium Bicarbonate 8.4% 50 Meq/50 Ml Syringe) 100 meq IVPUSH ONETIME ONE Stop: 02/16/21 17:24 Last Admin: 02/16/21 17:49 Dose: 100 meq Documented by: Zolpidem Tartrate (Zolpidem 5 Mg Tab) 5 mg PO ONETIME ONE Stop: 02/18/21 22:06 Last Admin: 02/18/21 22:17 Dose: 5 mg Documented by: Zolpidem Tartrate (Zolpidem 5 Mg Tab) 5 mg PO ONETIME ONE Stop: 02/20/21 00:18 Last Admin: 02/20/21 00:38 Dose: 5 mg Documented by: - Exam Urinary Catheter Total Time: 2Days 13Hours Physical Findings Comments:: General: Patient is a 70-year-old woman in no acute distress Oropharynx is clear, mucous membranes are moist Heart: Regular rate and rhythm, 1 out of 6 to 2 out of 6 systolic murmur best heard over her left apex Lungs: Clear to auscultation throughout Abdomen: Soft, nontender to palpation, normal bowel sounds heard throughout - Patient Data Lab Results Last 24 hrs: Laboratory Results - last 24 hr 02/23/21 02/23/21 02/23/21 Range/Units 05:45 05:45 08:00 WBC 5.0 (5.0-10.0) 10^3/uL RBC 4.63 (4.2-5.4) 10^6/uL Hgb 10.4 L (12.0-16.0) g/dL Hct 32.9 L (37.0-47.0) % MCV 71.1 L (80-100) fL MCH 22.5 L (27.0-34.0) pg MCHC 31.6 L (33.0-35.0) g/dL Plt Count 202 (150-450) 10^3/uL Neut % (Auto) 61.6 (42.2-75.2) % Lymph % (Auto) 21.3 (20.5-50.1) % Nolan % (Auto) 16.7 H (2-8) % Eos % (Auto) 0.2 L (1.0-3.0) % Baso % (Auto) 0.2 (0.0-1.0) % Sodium 145 (136-145) mmol/L Potassium 4.0 (3.5-5.1) mmol/L Chloride 114 H (98-107) mmol/L Carbon Dioxide 23 (21-32) mmol/L Anion Gap 12.0 (7-13) mEq/L BUN 17 (7-18) mg/dL Creatinine 0.68 (0.55-1.02) mg/dL Est Cr Clr Drug Dosing 75.93 mL/min Estimated GFR (MDRD) > 60 BUN/Creatinine Ratio 25.0 (No establ ref range) Glucose 136 H (70-99) mg/dL POC Glucose 77 (70-99) mg/dL Calcium 7.8 L (8.5-10.1) mg/dL Total Bilirubin 0.2 (0.2-1.0) mg/dL AST 15 (15-37) U/L ALT 18 (14-59) U/L Alkaline Phosphatase 154 H (46-116) U/L Total Protein 5.0 L (6.4-8.2) g/dL Albumin 1.9 L (3.4-5.0) g/dL Globulin 3.1 Albumin/Globulin Ratio 0.61 02/23/21 02/23/21 Range/Units 10:53 16:47 WBC (5.0-10.0) 10^3/uL RBC (4.2-5.4) 10^6/uL Hgb (12.0-16.0) g/dL Hct (37.0-47.0) % MCV (80-100) fL MCH (27.0-34.0) pg MCHC (33.0-35.0) g/dL Plt Count (150-450) 10^3/uL Neut % (Auto) (42.2-75.2) % Lymph % (Auto) (20.5-50.1) % Nolan % (Auto) (2-8) % Eos % (Auto) (1.0-3.0) % Baso % (Auto) (0.0-1.0) % Sodium (136-145) mmol/L Potassium (3.5-5.1) mmol/L Chloride (98-107) mmol/L Carbon Dioxide (21-32) mmol/L Anion Gap (7-13) mEq/L BUN (7-18) mg/dL Creatinine (0.55-1.02) mg/dL Est Cr Clr Drug Dosing mL/min Estimated GFR (MDRD) BUN/Creatinine Ratio (No establ ref range) Glucose (70-99) mg/dL POC Glucose 107 H 237 H (70-99) mg/dL Calcium (8.5-10.1) mg/dL Total Bilirubin (0.2-1.0) mg/dL AST (15-37) U/L ALT (14-59) U/L Alkaline Phosphatase (46-116) U/L Total Protein (6.4-8.2) g/dL Albumin (3.4-5.0) g/dL Globulin Albumin/Globulin Ratio Result Diagrams: 02/23/21 05:45 02/23/21 05:45 Sepsis Event Note - Evaluation Sepsis Screening Result: No Definite Risk - Focused Exam Vital Signs: Vital Signs Temp Pulse Pulse Resp BP BP Pulse Ox 02/23/21 17:21 80 143/77 H 02/23/21 16:00 97.5 F 80 18 143/77 H 97 02/23/21 11:37 98.4 F 72 20 122/67 99 - Problem List & Annotations (1) Acute coronary syndrome with high troponin SNOMED Code(s): 867980316, 870883621 Code(s): I24.9 - ACUTE ISCHEMIC HEART DISEASE, UNSPECIFIED Status: Acute Current Visit: Yes (2) Failure to thrive SNOMED Code(s): 09763976 Code(s): AIZ3555 - Status: Acute Current Visit: Yes (3) Unable to walk SNOMED Code(s): 094520158 Code(s): R26.2 - DIFFICULTY IN WALKING, NOT ELSEWHERE CLASSIFIED Status: Acute Current Visit: Yes (4) DKA (diabetic ketoacidosis) SNOMED Code(s): 521923636, 313986210 Code(s): E11.10 - TYPE 2 DIABETES MELLITUS WITH KETOACIDOSIS WITHOUT COMA Status: Acute Current Visit: Yes Qualifiers: Diabetes mellitus type: type 2 Diabetes mellitus complication detail: without coma Qualified Code(s): E11.10 - Type 2 diabetes mellitus with ketoacidosis without coma (5) Weakness SNOMED Code(s): 00599818 Code(s): R53.1 - WEAKNESS Status: Acute Current Visit: No - Problem List Review Problem List Initiated/Reviewed/Updated: Yes - My Orders Last 24 Hours: My Active Orders 02/24/21 05:11 B-TYPE NATRIURETIC PEPTIDE,BNP [CHEM] AM CBC WITH AUTO DIFF [HEME] AM COMPREHENSIVE METABOLIC PN,CMP [CHEM] AM - Assessment Assessment:: Assessment: 1. 70-year-old woman with acute coronary syndrome, resolved 2. Uncontrolled type 2 diabetes mellitus, insulin-dependent 3. Acute metabolic acidosis secondary to #1 and #2, resolved 4. Past history of cerebrovascular accident, leaving her with mobility issues and difficulty caring for herself and ADLs - Plan Plan:: 1. Continue sliding scale insulin as well as mealtime insulin and Lantus at 40 units at bedtime 2. Continue post ACS regimen, including Zetia, metoprolol, and lisinopril 3. We will have physical therapy working with her to do strengthening of her upper extremities, but we have been trying to communicate with Coreen that she will need most likely long-term admission to assisted or assisted living 4. VTE prophylaxis: Lovenox, 40 mg subcu daily 5. We will continue to work with Coreen, hopefully having a family meeting with her and her daughters to discuss future plans
--- NOTE | 2021-02-23 21:28 | PCM.PN ---
- General Info Date of Service: 02/22/21 Admission Dx/Problem (Free Text): Admission Diagnosis/Problem Admission Diagnosis/Problem Diabetic ketoacidosis without coma Subjective Update: Coreen is still somewhat edematous today. We were not able to get her albumin treatment yesterday because of an acute crisis on the floor that lasted through much of the day. Nursing to the [facility] for skin check this morning, do not report any significant wounds, she still has 1-2+ pitting edema. - Patient Data Vitals - Most Recent: Last Vital Signs Temp 97.5 F 02/23/21 16:00 Pulse 80 02/23/21 17:21 Resp 18 02/23/21 16:00 BP 143/77 H 02/23/21 17:21 Pulse Ox 97 02/23/21 16:00 Weight - Most Recent: 216 lb 12.8 oz I&O - Last 24 Hours: Intake & Output 02/23/21 02/23/21 02/23/21 06:59 14:59 22:59 Intake Total 350 675 625 Balance 350 675 625 Lab Results Last 24 Hours: Laboratory Results - last 24 hr 02/23/21 02/23/21 02/23/21 Range/Units 05:45 05:45 08:00 WBC 5.0 (5.0-10.0) 10^3/uL RBC 4.63 (4.2-5.4) 10^6/uL Hgb 10.4 L (12.0-16.0) g/dL Hct 32.9 L (37.0-47.0) % MCV 71.1 L (80-100) fL MCH 22.5 L (27.0-34.0) pg MCHC 31.6 L (33.0-35.0) g/dL Plt Count 202 (150-450) 10^3/uL Neut % (Auto) 61.6 (42.2-75.2) % Lymph % (Auto) 21.3 (20.5-50.1) % Lyon % (Auto) 16.7 H (2-8) % Eos % (Auto) 0.2 L (1.0-3.0) % Baso % (Auto) 0.2 (0.0-1.0) % Sodium 145 (136-145) mmol/L Potassium 4.0 (3.5-5.1) mmol/L Chloride 114 H (98-107) mmol/L Carbon Dioxide 23 (21-32) mmol/L Anion Gap 12.0 (7-13) mEq/L BUN 17 (7-18) mg/dL Creatinine 0.68 (0.55-1.02) mg/dL Est Cr Clr Drug Dosing 75.93 mL/min Estimated GFR (MDRD) > 60 BUN/Creatinine Ratio 25.0 (No establ ref range) Glucose 136 H (70-99) mg/dL POC Glucose 77 (70-99) mg/dL Calcium 7.8 L (8.5-10.1) mg/dL Total Bilirubin 0.2 (0.2-1.0) mg/dL AST 15 (15-37) U/L ALT 18 (14-59) U/L Alkaline Phosphatase 154 H (46-116) U/L Total Protein 5.0 L (6.4-8.2) g/dL Albumin 1.9 L (3.4-5.0) g/dL Globulin 3.1 Albumin/Globulin Ratio 0.61 02/23/21 02/23/21 Range/Units 10:53 16:47 WBC (5.0-10.0) 10^3/uL RBC (4.2-5.4) 10^6/uL Hgb (12.0-16.0) g/dL Hct (37.0-47.0) % MCV (80-100) fL MCH (27.0-34.0) pg MCHC (33.0-35.0) g/dL Plt Count (150-450) 10^3/uL Neut % (Auto) (42.2-75.2) % Lymph % (Auto) (20.5-50.1) % Lyon % (Auto) (2-8) % Eos % (Auto) (1.0-3.0) % Baso % (Auto) (0.0-1.0) % Sodium (136-145) mmol/L Potassium (3.5-5.1) mmol/L Chloride (98-107) mmol/L Carbon Dioxide (21-32) mmol/L Anion Gap (7-13) mEq/L BUN (7-18) mg/dL Creatinine (0.55-1.02) mg/dL Est Cr Clr Drug Dosing mL/min Estimated GFR (MDRD) BUN/Creatinine Ratio (No establ ref range) Glucose (70-99) mg/dL POC Glucose 107 H 237 H (70-99) mg/dL Calcium (8.5-10.1) mg/dL Total Bilirubin (0.2-1.0) mg/dL AST (15-37) U/L ALT (14-59) U/L Alkaline Phosphatase (46-116) U/L Total Protein (6.4-8.2) g/dL Albumin (3.4-5.0) g/dL Globulin Albumin/Globulin Ratio Med Orders - Current: Current Medications Acetaminophen (Acetaminophen 500 Mg Tab) 500 mg PO Q4H PRN PRN Reason: Pain/Fever Last Admin: 02/23/21 02:45 Dose: 500 mg Documented by: Aspirin (Aspirin 81 Mg Tab.Ec) 81 mg PO DAILY [facility] Last Admin: 02/23/21 08:19 Dose: 81 mg Documented by: Carvedilol (Carvedilol 3.125 Mg Tab) 3.125 mg PO BIDMEALS [facility] Last Admin: 02/23/21 17:21 Dose: 3.125 mg Documented by: Clopidogrel Bisulfate (Clopidogrel 75 Mg Tab) 75 mg PO DAILY [facility] Last Admin: 02/23/21 08:19 Dose: 75 mg Documented by: Dextrose/Water (50% Dextrose In Water 50 Ml Syringe) 25 ml IVPUSH Q15M PRN PRN Reason: Hypoglycemia Last Admin: 02/20/21 07:47 Dose: 25 ml Documented by: Ezetimibe (Ezetimibe 10 Mg Tab) 10 mg PO BEDTIME [facility] Last Admin: 02/22/21 20:51 Dose: 10 mg Documented by: Enoxaparin Sodium (Enoxaparin 40 Mg/0.4 Ml Syringe) 40 mg SUBCUT DAILY [facility] Last Admin: 02/23/21 08:22 Dose: 40 mg Documented by: Ferrous Sulfate (Ferrous Sulfate 325 Mg Tab) 325 mg PO Q48H [facility] Last Admin: 02/22/21 09:16 Dose: 325 mg Documented by: Glucagon (Glucagon,Human Recombinant 1 Mg Vial) 1 mg IM Q15M PRN PRN Reason: Hypoglycemia Insulin Glargine (Insulin Glarg,Human.Rec.Analog 100 Unit/Ml) 20 unit SUBCUT BEDTIME [facility] Last Admin: 02/22/21 20:50 Dose: 20 units Documented by: Insulin Human Lispro (Insulin Lispro 100 Units/Ml 3 Ml Vial) 0 unit SUBCUT WITHMEALSANDBED [facility]; Protocol Last Admin: 02/23/21 17:25 Dose: 4 units Documented by: Lisinopril (Lisinopril 10 Mg Tab) 10 mg PO DAILY [facility] Last Admin: 02/23/21 08:19 Dose: 10 mg Documented by: Melatonin (Melatonin 3 Mg Tab) 6 mg PO BEDTIME PRN PRN Reason: Sleep Last Admin: 02/22/21 21:29 Dose: 6 mg Documented by: Nystatin (Nystatin Topical Powder 30 Gm Bottle) 0 gm TOP Q8HR [facility] Last Admin: 02/23/21 13:48 Dose: 1 applic Documented by: Zolpidem Tartrate (Zolpidem 5 Mg Tab) 5 mg PO BEDTIME PRN PRN Reason: Sleep Last Admin: 02/22/21 21:29 Dose: 5 mg Documented by: Discontinued Medications Carvedilol (Carvedilol 6.25 Mg Tab) 6.25 mg PO ONETIME ONE Stop: 02/19/21 12:28 Last Admin: 02/19/21 12:36 Dose: Not Given Documented by: Clopidogrel Bisulfate (Clopidogrel 75 Mg Tab) 225 mg PO ONETIME STA Stop: 02/17/21 11:11 Last Admin: 02/17/21 11:24 Dose: 225 mg Documented by: Dextrose/Water (50% Dextrose In Water 50 Ml Syringe) 50 ml IVPUSH Q15M PRN PRN Reason: Hypoglycemia Dextrose/Water (50% Dextrose In Water 50 Ml Syringe) 50 ml IVPUSH Q15M PRN PRN Reason: Hypoglycemia Dextrose/Water (50% Dextrose In Water 50 Ml Syringe) 50 ml IVPUSH Q15M PRN PRN Reason: Hypoglycemia Dextrose/Water (50% Dextrose In Water 50 Ml Syringe) Confirm Administered Dose 50 ml .ROUTE .STK-MED ONE Stop: 02/20/21 07:41 Last Admin: 02/20/21 08:14 Dose: Not Given Documented by: Furosemide (Furosemide 20 Mg/2 Ml Vial) 20 mg IVPUSH ONETIME ONE Stop: 02/16/21 15:51 Last Admin: 02/16/21 15:54 Dose: 20 mg Documented by: Furosemide (Furosemide 40 Mg/4 Ml Vial) 40 mg IVPUSH ONETIME ONE Stop: 02/23/21 16:01 Last Admin: 02/23/21 16:00 Dose: 40 mg Documented by: Glucagon (Glucagon,Human Recombinant 1 Mg Vial) 1 mg IM Q15M PRN PRN Reason: Hypoglycemia Heparin Sodium (Porcine) (Heparin Sodium 5,000 Units/Ml Vial) 4,700 units IV ONETIME ONE Stop: 02/17/21 08:31 Last Admin: 02/17/21 08:34 Dose: 4,700 units Documented by: Heparin Sodium (Porcine) (Heparin Sodium 5,000 Units/Ml Vial) 1,000 units IVPUSH ONETIME ONE Stop: 02/17/21 22:56 Last Admin: 02/17/21 23:14 Dose: 1,000 units Documented by: Heparin Sodium (Porcine) (Heparin Sodium 5,000 Units/Ml Vial) 2,000 units IVPUSH .BOLUS ONE Stop: 02/18/21 09:18 Last Admin: 02/18/21 09:35 Dose: 2,000 units Documented by: Heparin Sodium (Porcine) (Heparin Sodium 5,000 Units/Ml Vial) 2,000 units IV PUSH ONETIME ONE Stop: 02/18/21 22:43 Last Admin: 02/18/21 22:55 Dose: 2,000 units Documented by: Sodium Chloride (Normal Saline) 1,000 mls @ 999 mls/hr IV .BOLUS ONE Stop: 02/16/21 15:00 Last Admin: 02/16/21 17:42 Dose: 999 mls/hr Documented by: Albumin Human (Buminate 5%) 250 mls @ 250 mls/hr IV ASDIRECTED ERIN Last Admin: 02/16/21 15:01 Dose: 250 mls/hr Documented by: Sodium Bicarbonate 100 meq/ (Dextrose/Water) 1,100 mls @ 100 mls/hr IV ONETIME ONE Stop: 02/17/21 02:02 Last Admin: 02/16/21 15:18 Dose: 100 mls/hr Documented by: Insulin Regular in 0.9 % NACL (Myxredlin In Ns 100 Unit/100 Ml) 100 unit in 100 mls @ 7.82 mls/hr IV TITRATE ERIN; Protocol Sodium Bicarbonate 100 meq/ (Dextrose/Water) 1,100 mls @ 999 mls/hr IV ONETIME ONE Stop: 02/16/21 18:27 Last Admin: 02/16/21 22:50 Dose: Not Given Documented by: Sodium Chloride (Normal Saline) 1,000 mls @ 250 mls/hr IV ASDIRECTED ERIN Insulin Regular in 0.9 % NACL (Myxredlin In Ns 100 Unit/100 Ml) 100 unit in 100 mls @ 7.82 mls/hr IV TITRATE ERIN; Protocol Last Titration: 02/17/21 02:36 Dose: 0 units/kg/hr, 0 mls/hr Documented by: Levofloxacin/Dextrose 500 mg/ (Premix) 100 mls @ 100 mls/hr IV Q24H ERIN Last Admin: 02/16/21 20:54 Dose: 100 mls/hr Documented by: Sodium Chloride (Normal Saline) 1,000 mls @ 1,000 mls/hr IV ASDIRECTED ERIN Stop: 02/16/21 19:59 Last Admin: 02/16/21 19:02 Dose: 1,000 mls/hr Documented by: Potassium Chloride/Sodium Chloride (Normal Saline With 40 Meq Kcl) 1,000 mls @ 250 mls/hr IV ASDIRECTED ERIN Last Admin: 02/17/21 01:48 Dose: 250 mls/hr Documented by: Sodium Bicarbonate 100 meq/ (Dextrose/Water) 1,100 mls @ 150 mls/hr IV ONETIME ONE Stop: 02/17/21 10:39 Last Infusion: 02/17/21 07:55 Dose: 50 mls/hr Documented by: Heparin Sodium/Sodium Chloride (Heparin 25,000 Units In 1/2 Ns 500 Ml) 25,000 units in 500 mls @ 18.768 mls/hr IV TITRATE ERIN; Protocol Last Admin: 02/19/21 03:31 Dose: 22 units/kg/hr, 34.408 mls/hr Documented by: Levofloxacin/Dextrose 500 mg/ (Premix) 100 mls @ 100 mls/hr IV Q48H ERIN Last Admin: 02/18/21 17:21 Dose: 100 mls/hr Documented by: Lactated Ringer's (Ringers, Lactated) 1,000 mls @ 125 mls/hr IV ASDIRECTED ERIN Last Admin: 02/19/21 05:45 Dose: 125 mls/hr Documented by: Levofloxacin/Dextrose 750 mg/ (Premix) 150 mls @ 100 mls/hr IV Q24H ERIN Stop: 02/21/21 11:01 Last Admin: 02/21/21 11:15 Dose: 100 mls/hr Documented by: Potassium Chloride 20 meq/ (Premix) 100 mls @ 50 mls/hr IV ONETIME ONE Stop: 02/20/21 09:22 Last Admin: 02/20/21 08:00 Dose: 50 mls/hr Documented by: Calcium Gluconate 1 gm/ Sodium (Chloride) 110 mls @ 110 mls/hr IV ONETIME ONE Stop: 02/20/21 08:29 Last Admin: 02/20/21 08:14 Dose: 110 mls/hr Documented by: Albumin Human 50 gm/ Premix 200 mls @ 100 mls/hr IV NOW ONE Stop: 02/23/21 13:21 Last Admin: 02/23/21 12:12 Dose: 100 mls/hr Documented by: Insulin Glargine (Insulin Glarg,Human.Rec.Analog 100 Unit/Ml) 35 unit SUBCUT ONETIME ONE Stop: 02/17/21 04:13 Last Admin: 02/17/21 04:28 Dose: 35 units Documented by: Insulin Glargine (Insulin Glarg,Human.Rec.Analog 100 Unit/Ml) 20 unit SUBCUT ONETIME ONE Stop: 02/19/21 09:23 Last Admin: 02/19/21 09:57 Dose: 20 units Documented by: Insulin Glargine (Insulin Glarg,Human.Rec.Analog 100 Unit/Ml) 40 unit SUBCUT BEDTIME [facility] Last Admin: 02/19/21 21:47 Dose: 40 units Documented by: Insulin Human Lispro (Insulin Lispro 100 Units/Ml 3 Ml Vial) 5 unit SUBCUT ONETIME ONE Stop: 02/17/21 04:15 Last Admin: 02/17/21 04:29 Dose: 5 units Documented by: Insulin Human Lispro (Insulin Lispro 100 Units/Ml 3 Ml Vial) 0 unit SUBCUT WITHMEALSANDBED [facility]; Protocol Last Admin: 02/18/21 09:04 Dose: Not Given Documented by: Insulin Human Lispro (Insulin Lispro 100 Units/Ml 3 Ml Vial) 14 unit SUBCUT ONETIME ONE Stop: 02/19/21 12:27 Last Admin: 02/19/21 12:36 Dose: Not Given Documented by: Insulin Human Lispro (Insulin Lispro 100 Units/Ml 3 Ml Vial) 12 unit SUBCUT ONETIME ONE Stop: 02/19/21 12:27 Last Admin: 02/19/21 12:41 Dose: 12 units Documented by: Insulin Human Regular (Insulin Regular, Human 100 Units/Ml 3 Ml Vial) 5 unit IV ONETIME ONE Stop: 02/16/21 14:22 Last Admin: 02/16/21 14:59 Dose: 5 unit Documented by: Insulin Human Regular (Insulin Regular, Human 100 Units/Ml 3 Ml Vial) 10 unit IV STAT STA Stop: 02/16/21 17:11 Last Admin: 02/16/21 17:19 Dose: 10 units Documented by: Insulin Human Regular (Insulin Regular, Human 100 Units/Ml 3 Ml Vial) 10 unit IV ONETIME ONE Stop: 02/16/21 18:13 Last Admin: 02/16/21 18:14 Dose: 10 units Documented by: Lisinopril (Lisinopril 5 Mg Tab) 2.5 mg PO DAILY ERIN Nitroglycerin (Nitroglycerin 0.4 Mg Tab.Sl) 0.4 mg SL ONETIME ONE Stop: 02/18/21 15:41 Last Admin: 02/18/21 15:47 Dose: 0.4 mg Documented by: Nystatin (Nystatin Topical Powder 30 Gm Bottle) 0 gm TOP Q8H ERIN Last Admin: 02/19/21 03:43 Dose: 1 applic Documented by: Potassium Chloride (Potassium Chloride 10 Meq Tab.Er) 40 meq PO ONETIME ONE Stop: 02/17/21 03:20 Last Admin: 02/17/21 07:20 Dose: Not Given Documented by: Potassium Chloride (Potassium Chloride 10 Meq Tab.Er) 40 meq PO ONETIME ONE Stop: 02/17/21 07:52 Last Admin: 02/17/21 08:43 Dose: 40 meq Documented by: Potassium Chloride (Potassium Chloride 10% 20 Meq/15 Ml Soln 15 Ml Ud Cup) 40 meq PO ONETIME ONE Stop: 02/17/21 17:01 Last Admin: 02/17/21 17:41 Dose: 40 meq Documented by: Sodium Bicarbonate (Sodium Bicarbonate 8.4% 50 Meq/50 Ml Syringe) 50 meq IVPUSH ONETIME ONE Stop: 02/16/21 15:04 Last Admin: 02/16/21 15:08 Dose: 50 meq Documented by: Sodium Bicarbonate (Sodium Bicarbonate 8.4% 50 Meq/50 Ml Syringe) 100 meq IVPUSH ONETIME ONE Stop: 02/16/21 17:24 Last Admin: 02/16/21 17:49 Dose: 100 meq Documented by: Zolpidem Tartrate (Zolpidem 5 Mg Tab) 5 mg PO ONETIME ONE Stop: 02/18/21 22:06 Last Admin: 02/18/21 22:17 Dose: 5 mg Documented by: Zolpidem Tartrate (Zolpidem 5 Mg Tab) 5 mg PO ONETIME ONE Stop: 02/20/21 00:18 Last Admin: 02/20/21 00:38 Dose: 5 mg Documented by: - Exam Urinary Catheter Total Time: 2Days 13Hours Physical Findings Comments:: General: Coreen is a 70-year-old woman in no acute distress Oropharynx is clear, mucous membranes are moist Heart: Regular rate and rhythm, 2/6 systolic murmur best heard over the left apex Lungs: Little tiny bit of crackles in both bases, but overall clear Extremities: Again 2+ pitting edema in her extremities - Patient Data Lab Results Last 24 hrs: Laboratory Results - last 24 hr 02/23/21 02/23/21 02/23/21 Range/Units 05:45 05:45 08:00 WBC 5.0 (5.0-10.0) 10^3/uL RBC 4.63 (4.2-5.4) 10^6/uL Hgb 10.4 L (12.0-16.0) g/dL Hct 32.9 L (37.0-47.0) % MCV 71.1 L (80-100) fL MCH 22.5 L (27.0-34.0) pg MCHC 31.6 L (33.0-35.0) g/dL Plt Count 202 (150-450) 10^3/uL Neut % (Auto) 61.6 (42.2-75.2) % Lymph % (Auto) 21.3 (20.5-50.1) % Lyon % (Auto) 16.7 H (2-8) % Eos % (Auto) 0.2 L (1.0-3.0) % Baso % (Auto) 0.2 (0.0-1.0) % Sodium 145 (136-145) mmol/L Potassium 4.0 (3.5-5.1) mmol/L Chloride 114 H (98-107) mmol/L Carbon Dioxide 23 (21-32) mmol/L Anion Gap 12.0 (7-13) mEq/L BUN 17 (7-18) mg/dL Creatinine 0.68 (0.55-1.02) mg/dL Est Cr Clr Drug Dosing 75.93 mL/min Estimated GFR (MDRD) > 60 BUN/Creatinine Ratio 25.0 (No establ ref range) Glucose 136 H (70-99) mg/dL POC Glucose 77 (70-99) mg/dL Calcium 7.8 L (8.5-10.1) mg/dL Total Bilirubin 0.2 (0.2-1.0) mg/dL AST 15 (15-37) U/L ALT 18 (14-59) U/L Alkaline Phosphatase 154 H (46-116) U/L Total Protein 5.0 L (6.4-8.2) g/dL Albumin 1.9 L (3.4-5.0) g/dL Globulin 3.1 Albumin/Globulin Ratio 0.61 02/23/21 02/23/21 Range/Units 10:53 16:47 WBC (5.0-10.0) 10^3/uL RBC (4.2-5.4) 10^6/uL Hgb (12.0-16.0) g/dL Hct (37.0-47.0) % MCV (80-100) fL MCH (27.0-34.0) pg MCHC (33.0-35.0) g/dL Plt Count (150-450) 10^3/uL Neut % (Auto) (42.2-75.2) % Lymph % (Auto) (20.5-50.1) % Lyon % (Auto) (2-8) % Eos % (Auto) (1.0-3.0) % Baso % (Auto) (0.0-1.0) % Sodium (136-145) mmol/L Potassium (3.5-5.1) mmol/L Chloride (98-107) mmol/L Carbon Dioxide (21-32) mmol/L Anion Gap (7-13) mEq/L BUN (7-18) mg/dL Creatinine (0.55-1.02) mg/dL Est Cr Clr Drug Dosing mL/min Estimated GFR (MDRD) BUN/Creatinine Ratio (No establ ref range) Glucose (70-99) mg/dL POC Glucose 107 H 237 H (70-99) mg/dL Calcium (8.5-10.1) mg/dL Total Bilirubin (0.2-1.0) mg/dL AST (15-37) U/L ALT (14-59) U/L Alkaline Phosphatase (46-116) U/L Total Protein (6.4-8.2) g/dL Albumin (3.4-5.0) g/dL Globulin Albumin/Globulin Ratio Result Diagrams: 02/24/21 05:40 02/24/21 05:40 Sepsis Event Note - Evaluation Sepsis Screening Result: No Definite Risk - Focused Exam Vital Signs: Vital Signs Temp Pulse Pulse Resp BP BP Pulse Ox 02/23/21 17:21 80 143/77 H 02/23/21 16:00 97.5 F 80 18 143/77 H 97 02/23/21 11:37 98.4 F 72 20 122/67 99 - Problem List & Annotations (1) Acute coronary syndrome with high troponin SNOMED Code(s): 253406977, 189765967 Code(s): I24.9 - ACUTE ISCHEMIC HEART DISEASE, UNSPECIFIED Status: Acute Current Visit: Yes (2) Failure to thrive SNOMED Code(s): 22537959 Code(s): RVH9663 - Status: Acute Current Visit: Yes (3) Unable to walk SNOMED Code(s): 889314404 Code(s): R26.2 - DIFFICULTY IN WALKING, NOT ELSEWHERE CLASSIFIED Status: Acute Current Visit: Yes (4) DKA (diabetic ketoacidosis) SNOMED Code(s): 731182897, 979857702 Code(s): E11.10 - TYPE 2 DIABETES MELLITUS WITH KETOACIDOSIS WITHOUT COMA Status: Acute Current Visit: Yes Qualifiers: Diabetes mellitus type: type 2 Diabetes mellitus complication detail: without coma Qualified Code(s): E11.10 - Type 2 diabetes mellitus with ketoacidosis without coma (5) Weakness SNOMED Code(s): 96021500 Code(s): R53.1 - WEAKNESS Status: Acute Current Visit: No - Problem List Review Problem List Initiated/Reviewed/Updated: Yes - My Orders Last 24 Hours: My Active Orders 02/24/21 05:11 B-TYPE NATRIURETIC PEPTIDE,BNP [CHEM] AM CBC WITH AUTO DIFF [HEME] AM COMPREHENSIVE METABOLIC PN,CMP [CHEM] AM - Assessment Assessment:: Assessment: 1. 70-year-old woman with acute coronary syndrome, resolved 2. Uncontrolled type 2 diabetes mellitus, insulin-dependent 3. Acute metabolic acidosis secondary to #1 and #2, resolved 4. Past history of cerebrovascular accident, leaving her with mobility issues and difficulty caring for herself and ADLs - Plan Plan:: 1. Continue sliding scale insulin as well as mealtime insulin and Lantus at 40 units at bedtime 2. Continue post ACS regimen, including Zetia, metoprolol, and lisinopril 3. We will have physical therapy working with her to do strengthening of her upper extremities, but we have been trying to communicate with Coreen that she will need most likely long-term admission to group home or assisted living 4. VTE prophylaxis: Lovenox, 40 mg subcu daily 5. We will continue to work with Coreen, hopefully having a family meeting with her and her daughters to discuss future plans 6. 50 g of IV albumin today, with 40 mg of IV Lasix 1 hour after albumin is completed. We will do a careful assessment of her edema as well as her daily weights from here on
[2021-02-23] MEDS: Insulin Glarg,Human.Rec.Analog 100 Unit/ML SUBCUT SCH (21:49)
[2021-02-23] MEDS: Ezetimibe 10 MG Tab PO SCH (21:51)
[2021-02-23] MEDS: Zolpidem 5 MG Tab PO PRN (21:56)
[2021-02-24 06:32] LABS: ANION GAP 11.7 mEq/L (7-13); CHLORIDE,CL 111 mmol/L (98-107); SODIUM,NA 144 mmol/L (136-145)
--- NOTE | 2021-02-24 08:10 | PCM.PN ---
- General Info Date of Service: 02/24/21 Admission Dx/Problem (Free Text): Admission Diagnosis/Problem Admission Diagnosis/Problem Diabetic ketoacidosis without coma Subjective Update: Coreen is doing a little better today, nursing reports that she has lost 5 pounds since yesterday. She has had good diuresis overnight, unfortunately they were not actually weighing the pads when she was incontinent, so we do not have an exact idea as to what her output was. As I approach, she does appear quite a bit less edematous. Nursing reports that they have had off-and-on significant difficulty with her. She gets very anxious, and has episodes of worsening dementia where she will cry out for nursing, and then be somewhat rude to them when they enter the room. When we speak with her on rounds, she is very accommodating, and talks about being resigned to go to the [facility], but then when she speaks with her workforce planner personally, she refuses any thought of going to the [facility] or having physical therapy. - Patient Data Vitals - Most Recent: Last Vital Signs Temp 97.7 F 02/24/21 04:00 Pulse 79 02/24/21 04:00 Resp 18 02/24/21 04:00 BP 146/68 H 02/24/21 04:00 Pulse Ox 96 02/24/21 04:00 Weight - Most Recent: 216 lb 12.8 oz I&O - Last 24 Hours: Intake & Output 02/23/21 02/24/21 02/24/21 22:59 06:59 14:59 Intake Total 865 240 Balance 865 240 Lab Results Last 24 Hours: Laboratory Results - last 24 hr 02/23/21 02/23/21 02/23/21 Range/Units 08:00 10:53 16:47 WBC (5.0-10.0) 10^3/uL RBC (4.2-5.4) 10^6/uL Hgb (12.0-16.0) g/dL Hct (37.0-47.0) % MCV (80-100) fL MCH (27.0-34.0) pg MCHC (33.0-35.0) g/dL Plt Count (150-450) 10^3/uL Neut % (Auto) (42.2-75.2) % Lymph % (Auto) (20.5-50.1) % Craven % (Auto) (2-8) % Eos % (Auto) (1.0-3.0) % Baso % (Auto) (0.0-1.0) % Sodium (136-145) mmol/L Potassium (3.5-5.1) mmol/L Chloride (98-107) mmol/L Carbon Dioxide (21-32) mmol/L Anion Gap (7-13) mEq/L BUN (7-18) mg/dL Creatinine (0.55-1.02) mg/dL Est Cr Clr Drug Dosing mL/min Estimated GFR (MDRD) BUN/Creatinine Ratio (No establ ref range) Glucose (70-99) mg/dL POC Glucose 77 107 H 237 H (70-99) mg/dL Calcium (8.5-10.1) mg/dL Total Bilirubin (0.2-1.0) mg/dL AST (15-37) U/L ALT (14-59) U/L Alkaline Phosphatase (46-116) U/L B-Natriuretic Peptide (0-100) pg/ml Total Protein (6.4-8.2) g/dL Albumin (3.4-5.0) g/dL Globulin Albumin/Globulin Ratio 02/23/21 02/24/21 02/24/21 Range/Units 21:23 05:40 05:40 WBC 5.1 (5.0-10.0) 10^3/uL RBC 4.42 (4.2-5.4) 10^6/uL Hgb 10.0 L (12.0-16.0) g/dL Hct 31.3 L (37.0-47.0) % MCV 70.8 L (80-100) fL MCH 22.6 L (27.0-34.0) pg MCHC 31.9 L (33.0-35.0) g/dL Plt Count 201 (150-450) 10^3/uL Neut % (Auto) 57.6 (42.2-75.2) % Lymph % (Auto) 23.9 (20.5-50.1) % Craven % (Auto) 18.1 H (2-8) % Eos % (Auto) 0.2 L (1.0-3.0) % Baso % (Auto) 0.2 (0.0-1.0) % Sodium 144 (136-145) mmol/L Potassium 3.7 (3.5-5.1) mmol/L Chloride 111 H (98-107) mmol/L Carbon Dioxide 25 (21-32) mmol/L Anion Gap 11.7 (7-13) mEq/L BUN 16 (7-18) mg/dL Creatinine 0.68 (0.55-1.02) mg/dL Est Cr Clr Drug Dosing 75.93 mL/min Estimated GFR (MDRD) > 60 BUN/Creatinine Ratio 23.5 (No establ ref range) Glucose 196 H (70-99) mg/dL POC Glucose 280 H (70-99) mg/dL Calcium 8.1 L (8.5-10.1) mg/dL Total Bilirubin 0.4 (0.2-1.0) mg/dL AST 23 (15-37) U/L ALT 24 (14-59) U/L Alkaline Phosphatase 175 H (46-116) U/L B-Natriuretic Peptide 1520 H (0-100) pg/ml Total Protein 5.3 L (6.4-8.2) g/dL Albumin 2.5 L (3.4-5.0) g/dL Globulin 2.8 Albumin/Globulin Ratio 0.89 02/24/ Range/Units 07:31 WBC (5.0-10.0) 10^3/uL RBC (4.2-5.4) 10^6/uL Hgb (12.0-16.0) g/dL Hct (37.0-47.0) % MCV (80-100) fL MCH (27.0-34.0) pg MCHC (33.0-35.0) g/dL Plt Count (150-450) 10^3/uL Neut % (Auto) (42.2-75.2) % Lymph % (Auto) (20.5-50.1) % Craven % (Auto) (2-8) % Eos % (Auto) (1.0-3.0) % Baso % (Auto) (0.0-1.0) % Sodium (136-145) mmol/L Potassium (3.5-5.1) mmol/L Chloride (98-107) mmol/L Carbon Dioxide (21-32) mmol/L Anion Gap (7-13) mEq/L BUN (7-18) mg/dL Creatinine (0.55-1.02) mg/dL Est Cr Clr Drug Dosing mL/min Estimated GFR (MDRD) BUN/Creatinine Ratio (No establ ref range) Glucose (70-99) mg/dL POC Glucose 210 H (70-99) mg/dL Calcium (8.5-10.1) mg/dL Total Bilirubin (0.2-1.0) mg/dL AST (15-37) U/L ALT (14-59) U/L Alkaline Phosphatase (46-116) U/L B-Natriuretic Peptide (0-100) pg/ml Total Protein (6.4-8.2) g/dL Albumin (3.4-5.0) g/dL Globulin Albumin/Globulin Ratio Med Orders - Current: Current Medications Acetaminophen (Acetaminophen 500 Mg Tab) 500 mg PO Q4H PRN PRN Reason: Pain/Fever Last Admin: 02/23/21 02:45 Dose: 500 mg Documented by: Aspirin (Aspirin 81 Mg Tab.Ec) 81 mg PO DAILY [facility] Last Admin: 02/23/21 08:19 Dose: 81 mg Documented by: Carvedilol (Carvedilol 3.125 Mg Tab) 3.125 mg PO BIDMEALS [facility] Last Admin: 02/23/21 17:21 Dose: 3.125 mg Documented by: Clopidogrel Bisulfate (Clopidogrel 75 Mg Tab) 75 mg PO DAILY [facility] Last Admin: 02/23/21 08:19 Dose: 75 mg Documented by: Dextrose/Water (50% Dextrose In Water 50 Ml Syringe) 25 ml IVPUSH Q15M PRN PRN Reason: Hypoglycemia Last Admin: 02/20/21 07:47 Dose: 25 ml Documented by: Ezetimibe (Ezetimibe 10 Mg Tab) 10 mg PO BEDTIME [facility] Last Admin: 02/23/21 21:51 Dose: 10 mg Documented by: Enoxaparin Sodium (Enoxaparin 40 Mg/0.4 Ml Syringe) 40 mg SUBCUT DAILY [facility] Last Admin: 02/23/21 08:22 Dose: 40 mg Documented by: Ferrous Sulfate (Ferrous Sulfate 325 Mg Tab) 325 mg PO Q48H [facility] Last Admin: 02/22/21 09:16 Dose: 325 mg Documented by: Glucagon (Glucagon,Human Recombinant 1 Mg Vial) 1 mg IM Q15M PRN PRN Reason: Hypoglycemia Insulin Glargine (Insulin Glarg,Human.Rec.Analog 100 Unit/Ml) 20 unit SUBCUT BEDTIME [facility] Last Admin: 02/23/21 21:49 Dose: 20 units Documented by: Insulin Human Lispro (Insulin Lispro 100 Units/Ml 3 Ml Vial) 0 unit SUBCUT WITHMEALSANDBED [facility]; Protocol Last Admin: 02/23/21 21:47 Dose: 6 units Documented by: Lisinopril (Lisinopril 10 Mg Tab) 10 mg PO DAILY [facility] Last Admin: 02/23/21 08:19 Dose: 10 mg Documented by: Melatonin (Melatonin 3 Mg Tab) 6 mg PO BEDTIME PRN PRN Reason: Sleep Last Admin: 02/22/21 21:29 Dose: 6 mg Documented by: Nystatin (Nystatin Topical Powder 30 Gm Bottle) 0 gm TOP Q8HR [facility] Last Admin: 02/23/21 21:50 Dose: 1 applic Documented by: Zolpidem Tartrate (Zolpidem 5 Mg Tab) 5 mg PO BEDTIME PRN PRN Reason: Sleep Last Admin: 02/23/21 21:56 Dose: 5 mg Documented by: Discontinued Medications Carvedilol (Carvedilol 6.25 Mg Tab) 6.25 mg PO ONETIME ONE Stop: 02/19/21 12:28 Last Admin: 02/19/21 12:36 Dose: Not Given Documented by: Clopidogrel Bisulfate (Clopidogrel 75 Mg Tab) 225 mg PO ONETIME STA Stop: 02/17/21 11:11 Last Admin: 02/17/21 11:24 Dose: 225 mg Documented by: Dextrose/Water (50% Dextrose In Water 50 Ml Syringe) 50 ml IVPUSH Q15M PRN PRN Reason: Hypoglycemia Dextrose/Water (50% Dextrose In Water 50 Ml Syringe) 50 ml IVPUSH Q15M PRN PRN Reason: Hypoglycemia Dextrose/Water (50% Dextrose In Water 50 Ml Syringe) 50 ml IVPUSH Q15M PRN PRN Reason: Hypoglycemia Dextrose/Water (50% Dextrose In Water 50 Ml Syringe) Confirm Administered Dose 50 ml .ROUTE .STK-MED ONE Stop: 02/20/21 07:41 Last Admin: 02/20/21 08:14 Dose: Not Given Documented by: Furosemide (Furosemide 20 Mg/2 Ml Vial) 20 mg IVPUSH ONETIME ONE Stop: 02/16/21 15:51 Last Admin: 02/16/21 15:54 Dose: 20 mg Documented by: Furosemide (Furosemide 40 Mg/4 Ml Vial) 40 mg IVPUSH ONETIME ONE Stop: 02/23/21 16:01 Last Admin: 02/23/21 16:00 Dose: 40 mg Documented by: Glucagon (Glucagon,Human Recombinant 1 Mg Vial) 1 mg IM Q15M PRN PRN Reason: Hypoglycemia Heparin Sodium (Porcine) (Heparin Sodium 5,000 Units/Ml Vial) 4,700 units IV ONETIME ONE Stop: 02/17/21 08:31 Last Admin: 02/17/21 08:34 Dose: 4,700 units Documented by: Heparin Sodium (Porcine) (Heparin Sodium 5,000 Units/Ml Vial) 1,000 units IVPUSH ONETIME ONE Stop: 02/17/21 22:56 Last Admin: 02/17/21 23:14 Dose: 1,000 units Documented by: Heparin Sodium (Porcine) (Heparin Sodium 5,000 Units/Ml Vial) 2,000 units IVPUSH .BOLUS ONE Stop: 02/18/21 09:18 Last Admin: 02/18/21 09:35 Dose: 2,000 units Documented by: Heparin Sodium (Porcine) (Heparin Sodium 5,000 Units/Ml Vial) 2,000 units IVPUSH ONETIME ONE Stop: 02/18/21 22:43 Last Admin: 02/18/21 22:55 Dose: 2,000 units Documented by: Sodium Chloride (Normal Saline) 1,000 mls @ 999 mls/hr IV .BOLUS ONE Stop: 02/16/21 15:00 Last Admin: 02/16/21 17:42 Dose: 999 mls/hr Documented by: Albumin Human (Buminate 5%) 250 mls @ 250 mls/hr IV ASDIRECTED [facility] Last Admin: 02/16/21 15:01 Dose: 250 mls/hr Documented by: Sodium Bicarbonate 100 meq/ (Dextrose/Water) 1,100 mls @ 100 mls/hr IV ONETIME ONE Stop: 02/17/21 02:02 Last Admin: 02/16/21 15:18 Dose: 100 mls/hr Documented by: Insulin Regular in 0.9 % NACL (Myxredlin In Ns 100 Unit/100 Ml) 100 unit in 100 mls @ 7.82 mls/hr IV TITRATE ERIN; Protocol Sodium Bicarbonate 100 meq/ (Dextrose/Water) 1,100 mls @ 999 mls/hr IV ONETIME ONE Stop: 02/16/21 18:27 Last Admin: 02/16/21 22:50 Dose: Not Given Documented by: Sodium Chloride (Normal Saline) 1,000 mls @ 250 mls/hr IV ASDIRECTED ERIN Insulin Regular in 0.9 % NACL (Myxredlin In Ns 100 Unit/100 Ml) 100 unit in 100 mls @ 7.82 mls/hr IV TITRATE ERIN; Protocol Last Titration: 02/17/21 02:36 Dose: 0 units/kg/hr, 0 mls/hr Documented by: Levofloxacin/Dextrose 500 mg/ (Premix) 100 mls @ 100 mls/hr IV Q24H ERIN Last Admin: 02/16/21 20:54 Dose: 100 mls/hr Documented by: Sodium Chloride (Normal Saline) 1,000 mls @ 1,000 mls/hr IV ASDIRECTED ERIN Stop: 02/16/21 19:59 Last Admin: 02/16/21 19:02 Dose: 1,000 mls/hr Documented by: Potassium Chloride/Sodium Chloride (Normal Saline With 40 Meq Kcl) 1,000 mls @ 250 mls/hr IV ASDIRECTED [facility] Last Admin: 02/17/21 01:48 Dose: 250 mls/hr Documented by: Sodium Bicarbonate 100 meq/ (Dextrose/Water) 1,100 mls @ 150 mls/hr IV ONETIME ONE Stop: 02/17/21 10:39 Last Infusion: 02/17/21 07:55 Dose: 50 mls/hr Documented by: Heparin Sodium/Sodium Chloride (Heparin 25,000 Units In 1/2 Ns 500 Ml) 25,000 units in 500 mls @ 18.768 mls/hr IV TITRATE ERIN; Protocol Last Admin: 02/19/21 03:31 Dose: 22 units/kg/hr, 34.408 mls/hr Documented by: Levofloxacin/Dextrose 500 mg/ (Premix) 100 mls @ 100 mls/hr IV Q48H ERIN Last Admin: 02/18/21 17:21 Dose: 100 mls/hr Documented by: Lactated Ringer's (Ringers, Lactated) 1,000 mls @ 125 mls/hr IV ASDIRECTED [facility] Last Admin: 02/19/21 05:45 Dose: 125 mls/hr Documented by: Levofloxacin/Dextrose 750 mg/ (Premix) 150 mls @ 100 mls/hr IV Q24H ERIN Stop: 02/21/21 11:01 Last Admin: 02/21/21 11:15 Dose: 100 mls/hr Documented by: Potassium Chloride 20 meq/ (Premix) 100 mls @ 50 mls/hr IV ONETIME ONE Stop: 02/20/21 09:22 Last Admin: 02/20/21 08:00 Dose: 50 mls/hr Documented by: Calcium Gluconate 1 gm/ Sodium (Chloride) 110 mls @ 110 mls/hr IV ONETIME ONE Stop: 02/20/21 08:29 Last Admin: 02/20/21 08:14 Dose: 110 mls/hr Documented by: Albumin Human 50 gm/ Premix 200 mls @ 100 mls/hr IV NOW ONE Stop: 02/23/21 13:21 Last Admin: 02/23/21 12:12 Dose: 100 mls/hr Documented by: Insulin Glargine (Insulin Glarg,Human.Rec.Analog 100 Unit/Ml) 35 unit SUBCUT ONETIME ONE Stop: 02/17/21 04:13 Last Admin: 02/17/21 04:28 Dose: 35 units Documented by: Insulin Glargine (Insulin Glarg,Human.Rec.Analog 100 Unit/Ml) 20 unit SUBCUT ONETIME ONE Stop: 02/19/21 09:23 Last Admin: 02/19/21 09:57 Dose: 20 units Documented by: Insulin Glargine (Insulin Glarg,Human.Rec.Analog 100 Unit/Ml) 40 unit SUBCUT BEDTIME [facility] Last Admin: 02/19/21 21:47 Dose: 40 units Documented by: Insulin Human Lispro (Insulin Lispro 100 Units/Ml 3 Ml Vial) 5 unit SUBCUT ONETIME ONE Stop: 02/17/21 04:15 Last Admin: 02/17/21 04:29 Dose: 5 units Documented by: Insulin Human Lispro (Insulin Lispro 100 Units/Ml 3 Ml Vial) 0 unit SUBCUT WI THMEALSANDBED [facility]; Protocol Last Admin: 02/18/21 09:04 Dose: Not Given Documented by: Insulin Human Lispro (Insulin Lispro 100 Units/Ml 3 Ml Vial) 14 unit SUBCUT ONETIME ONE Stop: 02/19/21 12:27 Last Admin: 02/19/21 12:36 Dose: Not Given Documented by: Insulin Human Lispro (Insulin Lispro 100 Units/Ml 3 Ml Vial) 12 unit SUBCUT ONETIME ONE Stop: 02/19/21 12:27 Last Admin: 02/19/21 12:41 Dose: 12 units Documented by: Insulin Human Regular (Insulin Regular, Human 100 Units/Ml 3 Ml Vial) 5 unit IV ONETIME ONE Stop: 02/16/21 14:22 Last Admin: 02/16/21 14:59 Dose: 5 unit Documented by: Insulin Human Regular (Insulin Regular, Human 100 Units/Ml 3 Ml Vial) 10 unit IV STAT STA Stop: 02/16/21 17:11 Last Admin: 02/16/21 17:19 Dose: 10 units Documented by: Insulin Human Regular (Insulin Regular, Human 100 Units/Ml 3 Ml Vial) 10 unit IV ONETIME ONE Stop: 02/16/21 18:13 Last Admin: 02/16/21 18:14 Dose: 10 units Documented by: Lisinopril (Lisinopril 5 Mg Tab) 2.5 mg PO DAILY [facility] Nitroglycerin (Nitroglycerin 0.4 Mg Tab.Sl) 0.4 mg SL ONETIME ONE Stop: 02/18/21 15:41 Last Admin: 02/18/21 15:47 Dose: 0.4 mg Documented by: Nystatin (Nystatin Topical Powder 30 Gm Bottle) 0 gm TOP Q8H [facility] Last Admin: 02/19/21 03:43 Dose: 1 applic Documented by: Potassium Chloride (Potassium Chloride 10 Meq Tab.Er) 40 meq PO ONETIME ONE Stop: 02/17/21 03:20 Last Admin: 02/17/21 07:20 Dose: Not Given Documented by: Potassium Chloride (Potassium Chloride 10 Meq Tab.Er) 40 meq PO ONETIME ONE Stop: 02/17/21 07:52 Last Admin: 02/17/21 08:43 Dose: 40 meq Documented by: Potassium Chloride (Potassium Chloride 10% 20 Meq/15 Ml Soln 15 Ml Ud Cup) 40 meq PO ONETIME ONE Stop: 02/17/21 17:01 Last Admin: 02/17/21 17:41 Dose: 40 meq Documented by: Sodium Bicarbonate (Sodium Bicarbonate 8.4% 50 Meq/50 Ml Syringe) 50 meq IVPUSH ONETIME ONE Stop: 02/16/21 15:04 Last Admin: 02/16/21 15:08 Dose: 50 meq Documented by: Sodium Bicarbonate (Sodium Bicarbonate 8.4% 50 Meq/50 Ml Syringe) 100 meq IVPUSH ONETIME ONE Stop: 02/16/21 17:24 Last Admin: 02/16/21 17:49 Dose: 100 meq Documented by: Zolpidem Tartrate (Zolpidem 5 Mg Tab) 5 mg PO ONETIME ONE Stop: 02/18/21 22:06 Last Admin: 02/18/21 22:17 Dose: 5 mg Documented by: Zolpidem Tartrate (Zolpidem 5 Mg Tab) 5 mg PO ONETIME ONE Stop: 02/20/21 00:18 Last Admin: 02/20/21 00:38 Dose: 5 mg Documented by: - Exam Urinary Catheter Total Time: 2Days 13Hours Physical Findings Comments:: General: Patient is a 70-year-old woman in no acute distress Oropharynx is clear, mucous membranes are moist Neck: Supple, no lymphadenopathy Heart: Regular rate and rhythm, 1 out of 6 systolic murmur best heard over left apex Lungs: Clear to auscultation throughout Extremities: There is significant improvement in her pitting edema, I do think we have a ways to go yet however. - Patient Data Lab Results Last 24 hrs: Laboratory Results - last 24 hr 02/23/21 02/23/21 02/23/21 Range/Units 08:00 10:53 16:47 WBC (5.0-10.0) 10^3/uL RBC (4.2-5.4) 10^6/uL Hgb (12.0-16.0) g/dL Hct (37.0-47.0) % MCV (80-100) fL MCH (27.0-34.0) pg MCHC (33.0-35.0) g/dL Plt Count (150-450) 10^3/uL Neut % (Auto) (42.2-75.2) % Lymph % (Auto) (20.5-50.1) % Craven % (Auto) (2-8) % Eos % (Auto) (1.0-3.0) % Baso % (Auto) (0.0-1.0) % Sodium (136-145) mmol/L Potassium (3.5-5.1) mmol/L Chloride (98-107) mmol/L Carbon Dioxide (21-32) mmol/L Anion Gap (7-13) mEq/L BUN (7-18) mg/dL Creatinine (0.55-1.02) mg/dL Est Cr Clr Drug Dosing mL/min Estimated GFR (MDRD) BUN/Creatinine Ratio (No establ ref range) Glucose (70-99) mg/dL POC Glucose 77 107 H 237 H (70-99) mg/dL Calcium (8.5-10.1) mg/dL Total Bilirubin (0.2-1.0) mg/dL AST (15-37) U/L ALT (14-59) U/L Alkaline Phosphatase (46-116) U/L B-Natriuretic Peptide (0-100) pg/ml Total Protein (6.4-8.2) g/dL Albumin (3.4-5.0) g/dL Globulin Albumin/Globulin Ratio 02/23/21 02/24/21 02/24/21 Range/Units 21:23 05:40 05:40 WBC 5.1 (5.0-10.0) 10^3/uL RBC 4.42 (4.2-5.4) 10^6/uL Hgb 10.0 L (12.0-16.0) g/dL Hct 31.3 L (37.0-47.0) % MCV 70.8 L (80-100) fL MCH 22.6 L (27.0-34.0) pg MCHC 31.9 L (33.0-35.0) g/dL Plt Count 201 (150-450) 10^3/uL Neut % (Auto) 57.6 (42.2-75.2) % Lymph % (Auto) 23.9 (20.5-50.1) % Craven % (Auto) 18.1 H (2-8) % Eos % (Auto) 0.2 L (1.0-3.0) % Baso % (Auto) 0.2 (0.0-1.0) % Sodium 144 (136-145) mmol/L Potassium 3.7 (3.5-5.1) mmol/L Chloride 111 H (98-107) mmol/L Carbon Dioxide 25 (21-32) mmol/L Anion Gap 11.7 (7-13) mEq/L BUN 16 (7-18) mg/dL Creatinine 0.68 (0.55-1.02) mg/dL Est Cr Clr Drug Dosing 75.93 mL/min Estimated GFR (MDRD) > 60 BUN/Creatinine Ratio 23.5 (No establ ref range) Glucose 196 H (70-99) mg/dL POC Glucose 280 H (70-99) mg/dL Calcium 8.1 L (8.5-10.1) mg/dL Total Bilirubin 0.4 (0.2-1.0) mg/dL AST 23 (15-37) U/L ALT 24 (14-59) U/L Alkaline Phosphatase 175 H (46-116) U/L B-Natriuretic Peptide 1520 H (0-100) pg/ml Total Protein 5.3 L (6.4-8.2) g/dL Albumin 2.5 L (3.4-5.0) g/dL Globulin 2.8 Albumin/Globulin Ratio 0.89 10/25/21 Range/Units 07:31 WBC (5.0-10.0) 10^3/uL RBC (4.2-5.4) 10^6/uL Hgb (12.0-16.0) g/dL Hct (37.0-47.0) % MCV (80-100) fL MCH (27.0-34.0) pg MCHC (33.0-35.0) g/dL Plt Count (150-450) 10^3/uL Neut % (Auto) (42.2-75.2) % Lymph % (Auto) (20.5-50.1) % Craven % (Auto) (2-8) % Eos % (Auto) (1.0-3.0) % Baso % (Auto) (0.0-1.0) % Sodium (136-145) mmol/L Potassium (3.5-5.1) mmol/L Chloride (98-107) mmol/L Carbon Dioxide (21-32) mmol/L Anion Gap (7-13) mEq/L BUN (7-18) mg/dL Creatinine (0.55-1.02) mg/dL Est Cr Clr Drug Dosing mL/min Estimated GFR (MDRD) BUN/Creatinine Ratio (No establ ref range) Glucose (70-99) mg/dL POC Glucose 210 H (70-99) mg/dL Calcium (8.5-10.1) mg/dL Total Bilirubin (0.2-1.0) mg/dL AST (15-37) U/L ALT (14-59) U/L Alkaline Phosphatase (46-116) U/L B-Natriuretic Peptide (0-100) pg/ml Total Protein (6.4-8.2) g/dL Albumin (3.4-5.0) g/dL Globulin Albumin/Globulin Ratio Result Diagrams: 02/24/21 05:40 02/24/21 05:40 Sepsis Event Note - Evaluation Sepsis Screening Result: No Definite Risk - Focused Exam Vital Signs: Vital Signs Temp Pulse Resp BP Pulse Ox 02/24/21 04:00 97.7 F 79 18 146/68 H 96 02/24/21 00:00 98.4 F 81 16 148/75 H 98 - Problem List & Annotations (1) Acute coronary syndrome with high troponin SNOMED Code(s): 383887180, 014541420 Code(s): I24.9 - ACUTE ISCHEMIC HEART DISEASE, UNSPECIFIED Status: Acute Current Visit: Yes (2) Failure to thrive SNOMED Code(s): 03641319 Code(s): HNT4672 - Status: Acute Current Visit: Yes (3) Unable to walk SNOMED Code(s): 837348072 Code(s): R26.2 - DIFFICULTY IN WALKING, NOT ELSEWHERE CLASSIFIED Status: Acute Current Visit: Yes (4) DKA (diabetic ketoacidosis) SNOMED Code(s): 304699310, 219007185 Code(s): E11.10 - TYPE 2 DIABETES MELLITUS WITH KETOACIDOSIS WITHOUT COMA Status: Acute Current Visit: Yes Qualifiers: Diabetes mellitus type: type 2 Diabetes mellitus complication detail: without coma Qualified Code(s): E11.10 - Type 2 diabetes mellitus with ketoacidosis without coma (5) Weakness SNOMED Code(s): 58174817 Code(s): R53.1 - WEAKNESS Status: Acute Current Visit: No (6) CHF exacerbation SNOMED Code(s): 248246846, 42406937795692 Code(s): I50.9 - HEART FAILURE, UNSPECIFIED Status: Acute Current Visit: Yes Qualifiers: Heart failure type: unspecified Qualified Code(s): I50.9 - Heart failure, unspecified - Problem List Review Problem List Initiated/Reviewed/Updated: Yes - My Orders Last 24 Hours: My Active Orders 02/24/21 08:07 Daily Weight [Height and Weight] [RC] DAILY - Assessment Assessment:: Assessment: 1. 70-year-old woman with acute coronary syndrome, resolved 2. Uncontrolled type 2 diabetes mellitus, insulin-dependent 3. Acute metabolic acidosis secondary to #1 and #2, resolved 4. Past history of cerebrovascular accident, leaving her with mobility issues and difficulty caring for herself and ADLs 5. Acute on chronic congestive heart failure, unknown type, most likely systolic predominantly - Plan Plan:: 1. Continue sliding scale insulin as well as mealtime insulin and Lantus at 20 units at bedtime 2. Continue post ACS regimen, including Zetia, metoprolol, and lisinopril 3. I will continue to try to convince her to participate with physical and Occupational Therapy, and we have been trying to communicate with Coreen that she will need most likely long-term admission to [facility] or assisted living 4. VTE prophylaxis: Lovenox, 40 mg subcu daily 5. We will continue to work with Coreen, hopefully having a family meeting with her and her daughters to discuss future plans 6. We will continue to watch daily weights, if she does not continue to di urese, we may need to repeat the albumin followed by IV Lasix. I may also consider a dose of metolazone.
[2021-02-24] MEDS: Enoxaparin 40 MG/0.4 ML Syringe SUBCUT SCH (09:40)
[2021-02-24] MEDS: Insulin Lispro 100 Units/ML 3 ML Vial SUBCUT SCH ×4 (09:40→21:04)
[2021-02-24] MEDS: Aspirin 81 MG Tab.EC PO SCH (09:41)
[2021-02-24] MEDS: Ferrous Sulfate 325 MG Tab PO SCH (09:41)
[2021-02-24] MEDS: Clopidogrel 75 MG Tab PO SCH (09:41)
[2021-02-24] MEDS: Lisinopril 10 MG Tab PO SCH (09:41)
[2021-02-24] MEDS: Carvedilol 3.125 MG Tab PO SCH ×2 (09:41→17:33)
[2021-02-24] MEDS: Nystatin Topical Powder 30 GM Bottle TOP SCH ×3 (09:49→21:06)
[2021-02-24] MEDS: Insulin Glarg,Human.Rec.Analog 100 Unit/ML SUBCUT SCH (21:05)
[2021-02-24] MEDS: Ezetimibe 10 MG Tab PO SCH (21:06)
[2021-02-24] MEDS: Zolpidem 5 MG Tab PO PRN (21:28)
[2021-02-25] MEDS: Nystatin Topical Powder 30 GM Bottle TOP SCH ×3 (06:08→21:03)
[2021-02-25] MEDS: Aspirin 81 MG Tab.EC PO SCH (08:26)
[2021-02-25] MEDS: Clopidogrel 75 MG Tab PO SCH (08:26)
[2021-02-25] MEDS: Lisinopril 10 MG Tab PO SCH (08:26)
[2021-02-25] MEDS: Enoxaparin 40 MG/0.4 ML Syringe SUBCUT SCH (08:26)
[2021-02-25] MEDS: Carvedilol 3.125 MG Tab PO SCH ×2 (08:26→17:14)
[2021-02-25] MEDS: Insulin Lispro 100 Units/ML 3 ML Vial SUBCUT SCH ×4 (08:27→21:04)
[2021-02-25] MEDS: Acetaminophen 500 MG Tab PO PRN (11:23)
[2021-02-25] MEDS: COVID-19 VACC, MRNA(PFIZER)/PF 30 MCG/0.3 ML VIAL IM ONE ×2 (16:23→17:11)
[2021-02-25] MEDS: Ezetimibe 10 MG Tab PO SCH (21:04)
[2021-02-25] MEDS: Insulin Glarg,Human.Rec.Analog 100 Unit/ML SUBCUT SCH (21:04)
[2021-02-25] MEDS: Zolpidem 5 MG Tab PO PRN (21:04)
[2021-02-26] MEDS ORDERED: 50% Dextrose in Water 50 ML Syringe IVPUSH ONE (07:45)
[2021-02-26] MEDS: Clopidogrel 75 MG Tab PO SCH (09:50)
[2021-02-26] MEDS: Carvedilol 3.125 MG Tab PO SCH ×2 (09:50→17:53)
[2021-02-26] MEDS: Lisinopril 10 MG Tab PO SCH (09:50)
[2021-02-26] MEDS: Aspirin 81 MG Tab.EC PO SCH (09:50)
[2021-02-26] MEDS: Ferrous Sulfate 325 MG Tab PO SCH (09:51)
[2021-02-26] MEDS: Nystatin Topical Powder 30 GM Bottle TOP SCH ×3 (09:51→21:53)
[2021-02-26] MEDS: Enoxaparin 40 MG/0.4 ML Syringe SUBCUT SCH (09:51)
[2021-02-26] MEDS: Insulin Lispro 100 Units/ML 3 ML Vial SUBCUT SCH ×4 (09:52→21:52)
--- NOTE | 2021-02-26 17:42 | PCM.PN ---
- General Info Date of Service: 02/25/21 Admission Dx/Problem (Free Text): Admission Diagnosis/Problem Admission Diagnosis/Problem Diabetic ketoacidosis without coma Subjective Update: Coreen continues to do better. Nursing reports she again lost 5 pounds yesterday with diuresis. She had over 2 L of net urine output yesterday. She had a poor night last night, being awake often throughout the night, and again calling out to nurses instead of pushing her button or communicating her wants and needs. This morning, when our shoe lay out planner tried to approach her to continue discussion about her placement in a senior care, patient became very angry at her and made her leave the room. We unfortunately were also told that her pending admission to a local senior care has been canceled, per their medical art therapist - Patient Data Vitals - Most Recent: Last Vital Signs Temp 97.0 F 02/26/21 16:00 Pulse 73 02/26/21 16:00 Resp 18 02/26/21 16:00 BP 120/70 02/26/21 16:00 Pulse Ox 98 02/26/21 16:00 Weight - Most Recent: 213 lb 12.8 oz I&O - Last 24 Hours: Intake & Output 02/26/21 02/26/21 02/26/21 06:59 14:59 22:59 Intake Total 120 Output Total 523 210 Balance -523 -90 Lab Results Last 24 Hours: Laboratory Results - last 24 hr 02/25/21 02/26/21 02/26/21 Range/Units 20:17 07:58 11:57 POC Glucose 170 H 168 H 56 L (70-99) mg/dL 02/26/21 02/26/21 Range/Units 14:04 16:53 POC Glucose 63 L 162 H (70-99) mg/dL Med Orders - Current: Current Medications Acetaminophen (Acetaminophen 500 Mg Tab) 500 mg PO Q4H PRN PRN Reason: Pain/Fever Last Admin: 02/25/21 11:23 Dose: 500 mg Documented by: Aspirin (Aspirin 81 Mg Tab.Ec) 81 mg PO DAILY [facility] Last Admin: 02/26/21 09:50 Dose: 81 mg Documented by: Carvedilol (Carvedilol 3.125 Mg Tab) 3.125 mg PO BIDMEALS [facility] Last Admin: 02/26/21 09:50 Dose: 3.125 mg Documented by: Clopidogrel Bisulfate (Clopidogrel 75 Mg Tab) 75 mg PO DAILY [facility] Last Admin: 02/26/21 09:50 Dose: 75 mg Documented by: Dextrose/Water (50% Dextrose In Water 50 Ml Syringe) 25 ml IVPUSH Q15M PRN PRN Reason: Hypoglycemia Last Admin: 02/20/21 07:47 Dose: 25 ml Documented by: Ezetimibe (Ezetimibe 10 Mg Tab) 10 mg PO BEDTIME [facility] Last Admin: 02/25/21 21:04 Dose: 10 mg Documented by: Enoxaparin Sodium (Enoxaparin 40 Mg/0.4 Ml Syringe) 40 mg SUBCUT DAILY [facility] Last Admin: 02/26/21 09:51 Dose: 40 mg Documented by: Ferrous Sulfate (Ferrous Sulfate 325 Mg Tab) 325 mg PO Q48H [facility] Last Admin: 02/26/21 09:51 Dose: 325 mg Documented by: Glucagon (Glucagon,Human Recombinant 1 Mg Vial) 1 mg IM Q15M PRN PRN Reason: Hypoglycemia Insulin Glargine (Insulin Glarg,Human.Rec.Analog 100 Unit/Ml) 20 unit SUBCUT BEDTIME [facility] Last Admin: 02/25/21 21:04 Dose: 20 units Documented by: Insulin Human Lispro (Insulin Lispro 100 Units/Ml 3 Ml Vial) 0 unit SUBCUT WITHMEALSANDBED [facility]; Protocol Last Admin: 02/26/21 12:55 Dose: Not Given Documented by: Lisinopril (Lisinopril 10 Mg Tab) 10 mg PO DAILY [facility] Last Admin: 02/26/21 09:50 Dose: 10 mg Documented by: Melatonin (Melatonin 3 Mg Tab) 6 mg PO BEDTIME PRN PRN Reason: Sleep Last Admin: 02/22/21 21:29 Dose: 6 mg Documented by: Metolazone (Metolazone 2.5 Mg Tab) 5 mg PO ONETIME ONE Stop: 02/27/21 06:01 Nystatin (Nystatin Topical Powder 30 Gm Bottle) 0 gm TOP Q8HR [facility] Last Admin: 02/26/21 14:24 Dose: 1 applic Documented by: Zolpidem Tartrate (Zolpidem 5 Mg Tab) 5 mg PO BEDTIME PRN PRN Reason: Sleep Last Admin: 02/25/21 21:04 Dose: 5 mg Documented by: Discontinued Medications COVID-19 Vaccine mRNA LNP-S (PFR) (PF) (Covid-19 Vacc, Mrna(Pfizer)/Pf 30 Mcg/0.3 Ml Vial) 30 mcg IM .ONCE ONE Stop: 02/25/21 16:21 Last Admin: 02/25/21 17:11 Dose: Not Given Documented by: Carvedilol (Carvedilol 6.25 Mg Tab) 6.25 mg PO ONETIME ONE Stop: 02/19/21 12:28 Last Admin: 02/19/21 12:36 Dose: Not Given Documented by: Clopidogrel Bisulfate (Clopidogrel 75 Mg Tab) 225 mg PO ONETIME STA Stop: 02/17/21 11:11 Last Admin: 02/17/21 11:24 Dose: 225 mg Documented by: Dextrose/Water (50% Dextrose In Water 50 Ml Syringe) 50 ml IVPUSH Q15M PRN PRN Reason: Hypoglycemia Dextrose/Water (50% Dextrose In Water 50 Ml Syringe) 50 ml IVPUSH Q15M PRN PRN Reason: Hypoglycemia Dextrose/Water (50% Dextrose In Water 50 Ml Syringe) 50 ml IVPUSH Q15M PRN PRN Reason: Hypoglycemia Dextrose/Water (50% Dextrose In Water 50 Ml Syringe) Confirm Administered Dose 50 ml .ROUTE .STK-MED ONE Stop: 02/20/21 07:41 Last Admin: 02/20/21 08:14 Dose: Not Given Documented by: Dextrose/Water (50% Dextrose In Water 50 Ml Syringe) 50 ml IVPUSH ONETIME ONE Stop: 02/26/21 07:46 Last Admin: 02/26/21 07:45 Dose: 50 ml Documented by: Furosemide (Furosemide 20 Mg/2 Ml Vial) 20 mg IVPUSH ONETIME ONE Stop: 02/16/21 15:51 Last Admin: 02/16/21 15:54 Dose: 20 mg Documented by: Furosemide (Furosemide 40 Mg/4 Ml Vial) 40 mg IVPUSH ONETIME ONE Stop: 02/23/21 16:01 Last Admin: 02/23/21 16:00 Dose: 40 mg Documented by: Glucagon (Glucagon,Human Recombinant 1 Mg Vial) 1 mg IM Q15M PRN PRN Reason: Hypoglycemia Heparin Sodium (Porcine) (Heparin Sodium 5,000 Units/Ml Vial) 4,700 units IV ONETIME ONE Stop: 02/17/21 08:31 Last Admin: 02/17/21 08:34 Dose: 4,700 units Documented by: Heparin Sodium (Porcine) (Heparin Sodium 5,000 Units/Ml Vial) 1,000 units IVPUSH ONETIME ONE Stop: 02/17/21 22:56 Last Admin: 02/17/21 23:14 Dose: 1,000 units Documented by: Heparin Sodium (Porcine) (Heparin Sodium 5,000 Units/Ml Vial) 2,000 units IVPUSH .BOLUS ONE Stop: 02/18/21 09:18 Last Admin: 02/18/21 09:35 Dose: 2,000 units Documented by: Heparin Sodium (Porcine) (Heparin Sodium 5,000 Units/Ml Vial) 2,000 units IVPUSH ONETIME ONE Stop: 02/18/21 22:43 Last Admin: 02/18/21 22:55 Dose: 2,000 units Documented by: Sodium Chloride (Normal Saline) 1,000 mls @ 999 mls/hr IV .BOLUS ONE Stop: 02/16/21 15:00 Last Admin: 02/16/21 17:42 Dose: 999 mls/hr Documented by: Albumin Human (Buminate 5%) 250 mls @ 250 mls/hr IV ASDIRECTED ERIN Last Admin: 02/16/21 15:01 Dose: 250 mls/hr Documented by: Sodium Bicarbonate 100 meq/ (Dextrose/Water) 1,100 mls @ 100 mls/hr IV ONETIME ONE Stop: 02/17/21 02:02 Last Admin: 02/16/21 15:18 Dose: 100 mls/hr Documented by: Insulin Regular in 0.9 % NACL (Myxredlin In Ns 100 Unit/100 Ml) 100 unit in 100 mls @ 7.82 mls/hr IV TITRATE ERIN; Protocol Sodium Bicarbonate 100 meq/ (Dextrose/Water) 1,100 mls @ 999 mls/hr IV ONETIME ONE Stop: 02/16/21 18:27 Last Admin: 02/16/21 22:50 Dose: Not Given Documented by: Sodium Chloride (Normal Saline) 1,000 mls @ 250 mls/hr IV ASDIRECTED ERIN Insulin Regular in 0.9 % NACL (Myxredlin In Ns 100 Unit/100 Ml) 100 unit in 100 mls @ 7.82 mls/hr IV TITRATE ERIN; Protocol Last Titration: 02/17/21 02:36 Dose: 0 units/kg/hr, 0 mls/hr Documented by: Levofloxacin/Dextrose 500 mg/ (Premix) 100 mls @ 100 mls/hr IV Q24H ERIN Last Admin: 02/16/21 20:54 Dose: 100 mls/hr Documented by: Sodium Chloride (Normal Saline) 1,000 mls @ 1,000 mls/hr IV ASDIRECTED ERIN Stop: 02/16/21 19:59 Last Admin: 02/16/21 19:02 Dose: 1,000 mls/hr Documented by: Potassium Chloride/Sodium Chloride (Normal Saline With 40 Meq Kcl) 1,000 mls @ 250 mls/hr IV ASDIRECTED ERIN Last Admin: 02/17/21 01:48 Dose: 250 mls/hr Documented by: Sodium Bicarbonate 100 meq/ (Dextrose/Water) 1,100 mls @ 150 mls/hr IV ONETIME ONE Stop: 02/17/21 10:39 Last Infusion: 02/17/21 07:55 Dose: 50 mls/hr Documented by: Heparin Sodium/Sodium Chloride (Heparin 25,000 Units In 1/2 Ns 500 Ml) 25,000 units in 500 mls @ 18.768 mls/hr IV TITRATE ERIN; Protocol Last Admin: 02/19/21 03:31 Dose: 22 units/kg/hr, 34.408 mls/hr Documented by: Levofloxacin/Dextrose 500 mg/ (Premix) 100 mls @ 100 mls/hr IV Q48H ERIN Last Admin: 02/18/21 17:21 Dose: 100 mls/hr Documented by: Lactated Ringer's (Ringers, Lactated) 1,000 mls @ 125 mls/hr IV ASDIRECTED ERIN Last Admin: 02/19/21 05:45 Dose: 125 mls/hr Documented by: Levofloxacin/Dextrose 750 mg/ (Premix) 150 mls @ 100 mls/hr IV Q24H ERIN Stop: 02/21/21 11:01 Last Admin: 02/21/21 11:15 Dose: 100 mls/hr Documented by: Potassium Chloride 20 meq/ (Premix) 100 mls @ 50 mls/hr IV ONETIME ONE Stop: 02/20/21 09:22 Last Admin: 02/20/21 08:00 Dose: 50 mls/hr Documented by: Calcium Gluconate 1 gm/ Sodium (Chloride) 110 mls @ 110 mls/hr IV ONETIME ONE Stop: 02/20/21 08:29 Last Admin: 02/20/21 08:14 Dose: 110 mls/hr Documented by: Albumin Human 50 gm/ Premix 200 mls @ 100 mls/hr IV NOW ONE Stop: 02/23/21 13:21 Last Admin: 02/23/21 12:12 Dose: 100 mls/hr Documented by: Insulin Glargine (Insulin Glarg,Human.Rec.Analog 100 Unit/Ml) 35 unit SUBCUT ONETIME ONE Stop: 02/17/21 04:13 Last Admin: 02/17/21 04:28 Dose: 35 units Documented by: Insulin Glargine (Insulin Glarg,Human.Rec.Analog 100 Unit/Ml) 20 unit SUBCUT ONETIME ONE Stop: 02/19/21 09:23 Last Admin: 02/19/21 09:57 Dose: 20 units Documented by: Insulin Glargine (Insulin Glarg,Human.Rec.Analog 100 Unit/Ml) 40 unit SUBCUT BEDTIME [facility] Last Admin: 02/19/21 21:47 Dose: 40 units Documented by: Insulin Human Lispro (Insulin Lispro 100 Units/Ml 3 Ml Vial) 5 unit SUBCUT ONETIME ONE Stop: 02/17/21 04:15 Last Admin: 02/17/21 04:29 Dose: 5 units Documented by: Insulin Human Lispro (Insulin Lispro 100 Units/Ml 3 Ml Vial) 0 unit SUBCUT WITHMEALSANDBED [facility]; Protocol Last Admin: 02/18/21 09:04 Dose: Not Given Documented by: Insulin Human Lispro (Insulin Lispro 100 Units/Ml 3 Ml Vial) 14 unit SUBCUT ONETIME ONE Stop: 02/19/21 12:27 Last Admin: 02/19/21 12:36 Dose: Not Given Documented by: Insulin Human Lispro (Insulin Lispro 100 Units/Ml 3 Ml Vial) 12 unit SUBCUT ONETIME ONE Stop: 02/19/21 12:27 Last Admin: 02/19/21 12:41 Dose: 12 units Documented by: Insulin Human Regular (Insulin Regular, Human 100 Units/Ml 3 Ml Vial) 5 unit IV ONETIME ONE Stop: 02/16/21 14:22 Last Admin: 02/16/21 14:59 Dose: 5 unit Documented by: Insulin Human Regular (Insulin Regular, Human 100 Units/Ml 3 Ml Vial) 10 unit IV STAT STA Stop: 02/16/21 17:11 Last Admin: 02/16/21 17:19 Dose: 10 units Documented by: Insulin Human Regular (Insulin Regular, Human 100 Units/Ml 3 Ml Vial) 10 unit IV ONETIME ONE Stop: 02/16/21 18:13 Last Admin: 02/16/21 18:14 Dose: 10 units Documented by: Lisinopril (Lisinopril 5 Mg Tab) 2.5 mg PO DAILY [facility] Nitroglycerin (Nitroglycerin 0.4 Mg Tab.Sl) 0.4 mg SL ONETIME ONE Stop: 02/18/21 15:41 Last Admin: 02/18/21 15:47 Dose: 0.4 mg Documented by: Nystatin (Nystatin Topical Powder 30 Gm Bottle) 0 gm TOP Q8H [facility] Last Admin: 02/19/21 03:43 Dose: 1 applic Documented by: Potassium Chloride (Potassium Chloride 10 Meq Tab.Er) 40 meq PO ONETIME ONE Stop: 02/17/21 03:20 Last Admin: 02/17/21 07:20 Dose: Not Given Documented by: Potassium Chloride (Potassium Chloride 10 Meq Tab.Er) 40 meq PO ONETIME ONE Stop: 02/17/21 07:52 Last Admin: 02/17/21 08:43 Dose: 40 meq Documented by: Potassium Chloride (Potassium Chloride 10% 20 Meq/15 Ml Soln 15 Ml Ud Cup) 40 meq PO ONETIME ONE Stop: 02/17/21 17:01 Last Admin: 02/17/21 17:41 Dose: 40 meq Documented by: Sodium Bicarbonate (Sodium Bicarbonate 8.4% 50 Meq/50 Ml Syringe) 50 meq IVPUSH ONETIME ONE Stop: 02/16/21 15:04 Last Admin: 02/16/21 15:08 Dose: 50 meq Documented by: Sodium Bicarbonate (Sodium Bicarbonate 8.4% 50 Meq/50 Ml Syringe) 100 meq IVPUSH ONETIME ONE Stop: 02/16/21 17:24 Last Admin: 02/16/21 17:49 Dose: 100 meq Documented by: Zolpidem Tartrate (Zolpidem 5 Mg Tab) 5 mg PO ONETIME ONE Stop: 02/18/21 22:06 Last Admin: 02/18/21 22:17 Dose: 5 mg Documented by: Zolpidem Tartrate (Zolpidem 5 Mg Tab) 5 mg PO ONETIME ONE Stop: 02/20/21 00:18 Last Admin: 02/20/21 00:38 Dose: 5 mg Documented by: - Exam Urinary Catheter Total Time: 2Days 13Hours Physical Findings Comments:: General: Patient is a 70-year-old woman in no acute distress Oropharynx is clear, mucous membranes are moist Heart: Regular rate and rhythm, 1 out of 6 systolic murmur best heard over the left apex Lungs: Clear to auscultation throughout Extremities: Again there is a quite a bit of decrease in edema today. She is starting to have significant excoriations, especially on her left upper arm. We will have to watch this closely. Nursing is also reporting that she is starting to have some decubitus breakdown of her heels, they are using bed padding and booties to help with this. Nutrition has been working very hard to improve her protein intake to hopefully combat this as well - Patient Data Lab Results Last 24 hrs: Laboratory Results - last 24 hr 02/25/21 02/26/21 02/26/21 Range/Units 20:17 07:58 11:57 POC Glucose 170 H 168 H 56 L (70-99) mg/dL 02/26/21 02/26/21 Range/Units 14:04 16:53 POC Glucose 63 L 162 H (70-99) mg/dL Result Diagrams: 02/24/21 05:40 02/24/21 05:40 Sepsis Event Note - Evaluation Sepsis Screening Result: No Definite Risk - Focused Exam Vital Signs: Vital Signs Temp Pulse Pulse Resp BP BP Pulse Ox 02/26/21 16:00 97.0 F 73 18 120/70 98 02/26/21 12:00 96.9 F 71 20 148/72 H 99 02/26/21 09:50 87 160/68 H 02/26/21 07:46 97.6 F 87 20 160/68 H 94 L - Problem List & Annotations (1) Acute coronary syndrome with high troponin SNOMED Code(s): 662866803, 032720211 Code(s): I24.9 - ACUTE ISCHEMIC HEART DISEASE, UNSPECIFIED Status: Acute Current Visit: Yes (2) Failure to thrive SNOMED Code(s): 21854112 Code(s): IEO3235 - Status: Acute Current Visit: Yes (3) Unable to walk SNOMED Code(s): 709181353 Code(s): R26.2 - DIFFICULTY IN WALKING, NOT ELSEWHERE CLASSIFIED Status: Acute Current Visit: Yes (4) DKA (diabetic ketoacidosis) SNOMED Code(s): 398419650, 274691534 Code(s): E11.10 - TYPE 2 DIABETES MELLITUS WITH KETOACIDOSIS WITHOUT COMA Status: Acute Current Visit: Yes Qualifiers: Diabetes mellitus type: type 2 Diabetes mellitus complication detail: without coma Qualified Code(s): E11.10 - Type 2 diabetes mellitus with ketoacidosis without coma (5) Weakness SNOMED Code(s): 72998406 Code(s): R53.1 - WEAKNESS Status: Acute Current Visit: No (6) CHF exacerbation SNOMED Code(s): 167614519, [id number] Code(s): I50.9 - HEART FAILURE, UNSPECIFIED Status: Acute Current Visit: Yes Qualifiers: Heart failure type: unspecified Qualified Code(s): I50.9 - Heart failure, unspecified - Problem List Review Problem List Initiated/Reviewed/Updated: Yes - My Orders Last 24 Hours: My Active Orders 02/27/21 05:11 B-TYPE NATRIURETIC PEPTIDE,BNP [CHEM] AM CBC WITH AUTO DIFF [HEME] AM COMPREHENSIVE METABOLIC PN,CMP [CHEM] AM 02/27/21 06:00 metOLazone [Zaroxolyn] 5 mg PO ONETIME ONE - Assessment Assessment:: Assessment: 1. 70-year-old woman with acute coronary syndrome, resolved 2. Uncontrolled type 2 diabetes mellitus, insulin-dependent 3. Acute metabolic acidosis secondary to #1 and #2, resolved 4. Past history of cerebrovascular accident, leaving her with mobility issues and difficulty caring for herself and ADLs 5. Acute on chronic congestive heart failure, unknown type, most likely systolic predominantly 6. Failure to thrive, with very low albumin count - Plan Plan:: 1. Continue sliding scale insulin as well as mealtime insulin and Lantus at 20 units at bedtime 2. Continue post ACS regimen, including Zetia, metoprolol, and lisinopril 3. I will continue to try to convince her to participate with physical and Occupational Therapy, and we have been trying to communicate with Coreen that sh rosanne will need most likely long-term admission to senior care or assisted living 4. VTE prophylaxis: Lovenox, 40 mg SQ daily 5. We will continue to work with Coreen, hopefully having a family meeting with her and her daughters to discuss future plans 6. We will continue to watch daily weights, if she does not continue to diurese, we may need to repeat the albumin followed by IV Lasix. I may also consider a dose of metolazone. 7. Nursing and nutrition will work carefully together to try to improve her nutrition as well as do skin cares to prevent decubitus breakdown. Since she may be here of quite some duration, we will have to be diligent about this going forward
[2021-02-26] MEDS: Insulin Glarg,Human.Rec.Analog 100 Unit/ML SUBCUT SCH (21:49)
[2021-02-26] MEDS: Ezetimibe 10 MG Tab PO SCH (21:50)
[2021-02-26] MEDS: Zolpidem 5 MG Tab PO PRN (21:50)
[2021-02-27] MEDS ORDERED: Metolazone 2.5 MG Tab PO ONE (06:00)
[2021-02-27 06:12] LABS: ANION GAP 13.9 mEq/L (7-13); CHLORIDE,CL 111 mmol/L (98-107); SODIUM,NA 147 mmol/L (136-145)
[2021-02-27] MEDS: Nystatin Topical Powder 30 GM Bottle TOP SCH ×3 (06:12→21:31)
[2021-02-27] MEDS: Clopidogrel 75 MG Tab PO SCH (08:49)
[2021-02-27] MEDS: Acetaminophen 500 MG Tab PO PRN (08:49)
[2021-02-27] MEDS: Lisinopril 10 MG Tab PO SCH (08:49)
[2021-02-27] MEDS: Aspirin 81 MG Tab.EC PO SCH (08:49)
[2021-02-27] MEDS: Insulin Lispro 100 Units/ML 3 ML Vial SUBCUT SCH ×4 (08:50→21:10)
[2021-02-27] MEDS: Carvedilol 3.125 MG Tab PO SCH ×2 (08:50→17:49)
[2021-02-27] MEDS: Enoxaparin 40 MG/0.4 ML Syringe SUBCUT SCH (08:52)
--- NOTE | 2021-02-27 09:32 | PCM.PN ---
- General Info Date of Service: 02/27/21 Admission Dx/Problem (Free Text): Admission Diagnosis/Problem Admission Diagnosis/Problem Diabetic ketoacidosis without coma Subjective Update: Coreen has been stable the past 24 hours. Blood sugars this morning was 193. Discharge planning continues to try to find placement for her. [place] [facility] [place] [facility] [place] [facility], [place] a [place] [facility] [place] has been a challenge. - Patient Data Vitals - Most Recent: Last Vital Signs Temp 98.0 F 02/27/21 07:51 Pulse 73 02/27/21 08:50 Resp 20 02/27/21 07:51 BP 129/70 02/27/21 08:50 Pulse Ox 98 02/27/21 07:51 Weight - Most Recent: 209 lb 9.6 oz I&O - Last 24 Hours: Intake & Output 02/26/21 02/27/21 02/27/21 22:59 06:59 14:59 Intake Total 150 250 Balance 150 250 Lab Results Last 24 Hours: Laboratory Results - last 24 hr 02/26/21 02/26/21 02/26/21 Range/Units 11:57 14:04 16:53 WBC (5.0-10.0) 10^3/uL RBC (4.2-5.4) 10^6/uL Hgb (12.0-16.0) g/dL Hct (37.0-47.0) % MCV (80-100) fL MCH (27.0-34.0) pg MCHC (33.0-35.0) g/dL Plt Count (150-450) 10^3/uL Neut % (Auto) (42.2-75.2) % Lymph % (Auto) (20.5-50.1) % [place] % (Auto) (2-8) % Eos % (Auto) (1.0-3.0) % Baso % (Auto) (0.0-1.0) % Sodium (136-145) mmol/L Potassium (3.5-5.1) mmol/L Chloride (98-107) mmol/L Carbon Dioxide (21-32) mmol/L Anion Gap (7-13) mEq/L BUN (7-18) mg/dL Creatinine (0.55-1.02) mg/dL Est Cr Clr Drug Dosing mL/min Estimated GFR (MDRD) BUN/Creatinine Ratio (No establ ref range) Glucose (70-99) mg/dL POC Glucose 56 L 63 L 162 H (70-99) mg/dL Calcium (8.5-10.1) mg/dL Total Bilirubin (0.2-1.0) mg/dL AST (15-37) U/L ALT (14-59) U/L Alkaline Phosphatase (46-116) U/L B-Natriuretic Peptide (0-100) pg/ml Total Protein (6.4-8.2) g/dL Albumin (3.4-5.0) g/dL Globulin Albumin/Globulin Ratio 02/26/21 02/27/21 02/27/21 Range/Units 20:29 05:45 05:45 WBC 4.2 L (5.0-10.0) 10^3/uL RBC 4.23 (4.2-5.4) 10^6/uL Hgb 9.8 L (12.0-16.0) g/dL Hct 30.5 L (37.0-47.0) % MCV 72.1 L (80-100) fL MCH 23.2 L (27.0-34.0) pg MCHC 32.1 L (33.0-35.0) g/dL Plt Count 238 (150-450) 10^3/uL Neut % (Auto) 55.6 (42.2-75.2) % Lymph % (Auto) 27.1 (20.5-50.1) % [place] % (Auto) 16.9 H (2-8) % Eos % (Auto) 0.2 L (1.0-3.0) % Baso % (Auto) 0.2 (0.0-1.0) % Sodium 147 H (136-145) mmol/L Potassium 3.9 (3.5-5.1) mmol/L Chloride 111 H (98-107) mmol/L Carbon Dioxide 26 (21-32) mmol/L Anion Gap 13.9 H (7-13) mEq/L BUN 13 (7-18) mg/dL Creatinine 0.66 (0.55-1.02) mg/dL Est Cr Clr Drug Dosing 78.23 mL/min Estimated GFR (MDRD) > 60 BUN/Creatinine Ratio 19.7 (No establ ref range) Glucose 262 H (70-99) mg/dL POC Glucose 166 H (70-99) mg/dL Calcium 7.6 L (8.5-10.1) mg/dL Total Bilirubin 0.2 (0.2-1.0) mg/dL AST 11 L (15-37) U/L ALT 14 (14-59) U/L Alkaline Phosphatase 136 H (46-116) U/L B-Natriuretic Peptide 1140 H (0-100) pg/ml Total Protein 4.8 L (6.4-8.2) g/dL Albumin 1.9 L (3.4-5.0) g/dL Globulin 2.9 Albumin/Globulin Ratio 0.66 // Range/Units 07:45 WBC (5.0-10.0) 10^3/uL RBC (4.2-5.4) 10^6/uL Hgb (12.0-16.0) g/dL Hct (37.0-47.0) % MCV (80-100) fL MCH (27.0-34.0) pg MCHC (33.0-35.0) g/dL Plt Count (150-450) 10^3/uL Neut % (Auto) (42.2-75.2) % Lymph % (Auto) (20.5-50.1) % [place] % (Auto) (2-8) % Eos % (Auto) (1.0-3.0) % Baso % (Auto) (0.0-1.0) % Sodium (136-145) mmol/L Potassium (3.5-5.1) mmol/L Chloride (98-107) mmol/L Carbon Dioxide (21-32) mmol/L Anion Gap (7-13) mEq/L BUN (7-18) mg/dL Creatinine (0.55-1.02) mg/dL Est Cr Clr Drug Dosing mL/min Estimated GFR (MDRD) BUN/Creatinine Ratio (No establ ref range) Glucose (70-99) mg/dL POC Glucose 193 H (70-99) mg/dL Calcium (8.5-10.1) mg/dL Total Bilirubin (0.2-1.0) mg/dL AST (15-37) U/L ALT (14-59) U/L Alkaline Phosphatase (46-116) U/L B-Natriuretic Peptide (0-100) pg/ml Total Protein (6.4-8.2) g/dL Albumin (3.4-5.0) g/dL Globulin Albumin/Globulin Ratio Med Orders - Current: Current Medications Acetaminophen (Acetaminophen 500 Mg Tab) 500 mg PO Q4H PRN PRN Reason: Pain/Fever Last Admin: 02/27/21 08:49 Dose: 500 mg Documented by: Aspirin (Aspirin 81 Mg Tab.Ec) 81 mg PO DAILY [facility] Last Admin: 02/27/21 08:49 Dose: 81 mg Documented by: Carvedilol (Carvedilol 3.125 Mg Tab) 3.125 mg PO BIDMEALS [facility] Last Admin: 02/27/21 08:50 Dose: 3.125 mg Documented by: Clopidogrel Bisulfate (Clopidogrel 75 Mg Tab) 75 mg PO DAILY [facility] Last Admin: 02/27/21 08:49 Dose: 75 mg Documented by: Dextrose/Water (50% Dextrose In Water 50 Ml Syringe) 25 ml IVPUSH Q15M PRN PRN Reason: Hypoglycemia Last Admin: 02/20/21 07:47 Dose: 25 ml Documented by: Ezetimibe (Ezetimibe 10 Mg Tab) 10 mg PO BEDTIME [facility] Last Admin: 02/26/21 21:50 Dose: 10 mg Documented by: Enoxaparin Sodium (Enoxaparin 40 Mg/0.4 Ml Syringe) 40 mg SUBCUT DAILY [facility] Last Admin: 02/27/21 08:52 Dose: 40 mg Documented by: Ferrous Sulfate (Ferrous Sulfate 325 Mg Tab) 325 mg PO Q48H [facility] Last Admin: 02/26/21 09:51 Dose: 325 mg Documented by: Glucagon (Glucagon,Human Recombinant 1 Mg Vial) 1 mg IM Q15M PRN PRN Reason: Hypoglycemia Insulin Glargine (Insulin Glarg,Human.Rec.Analog 100 Unit/Ml) 20 unit SUBCUT BEDTIME [facility] Last Admin: 02/26/21 21:49 Dose: 20 units Documented by: Insulin Human Lispro (Insulin Lispro 100 Units/Ml 3 Ml Vial) 0 unit SUBCUT WITHMEALSANDBED [facility]; Protocol Last Admin: 02/27/21 08:50 Dose: 2 units Documented by: Lisinopril (Lisinopril 10 Mg Tab) 10 mg PO DAILY [facility] Last Admin: 02/27/21 08:49 Dose: 10 mg Documented by: Melatonin (Melatonin 3 Mg Tab) 6 mg PO BEDTIME PRN PRN Reason: Sleep Last Admin: 02/22/21 21:29 Dose: 6 mg Documented by: Nystatin (Nystatin Topical Powder 30 Gm Bottle) 0 gm TOP Q8HR [facility] Last Admin: 02/27/21 06:12 Dose: 1 applic Documented by: Zolpidem Tartrate (Zolpidem 5 Mg Tab) 5 mg PO BEDTIME PRN PRN Reason: Sleep Last Admin: 02/26/21 21:50 Dose: 5 mg Documented by: Discontinued Medications COVID-19 Vaccine mRNA LNP-S (PFR) (PF) (Covid-19 Vacc, Mrna(Pfizer)/Pf 30 Mcg/0.3 Ml Vial) 30 mcg IM .ONCE ONE Stop: 02/25/21 16:21 Last Admin: 02/25/21 17:11 Dose: Not Given Documented by: Carvedilol (Carvedilol 6.25 Mg Tab) 6.25 mg PO ONETIME ONE Stop: 02/19/21 12:28 Last Admin: 02/19/21 12:36 Dose: Not Given Documented by: Clopidogrel Bisulfate (Clopidogrel 75 Mg Tab) 225 mg PO ONETIME STA Stop: 02/17/21 11:11 Last Admin: 02/17/21 11:24 Dose: 225 mg Documented by: Dextrose/Water (50% Dextrose In Water 50 Ml Syringe) 50 ml IVPUSH Q15M PRN PRN Reason: Hypoglycemia Dextrose/Water (50% Dextrose In Water 50 Ml Syringe) 50 ml IVPUSH Q15M PRN PRN Reason: Hypoglycemia Dextrose/Water (50% Dextrose In Water 50 Ml Syringe) 50 ml IVPUSH Q15M PRN PRN Reason: Hypoglycemia Dextrose/Water (50% Dextrose In Water 50 Ml Syringe) Confirm Administered Dose 50 ml .ROUTE .STK-MED ONE Stop: 02/20/21 07:41 Last Admin: 02/20/21 08:14 Dose: Not Given Documented by: Dextrose/Water (50% Dextrose In Water 50 Ml Syringe) 50 ml IVPUSH ONETIME ONE Stop: 02/26/21 07:46 Last Admin: 02/26/21 07:45 Dose: 50 ml Documented by: Furosemide (Furosemide 20 Mg/2 Ml Vial) 20 mg IVPUSH ONETIME ONE Stop: 02/16/21 15:51 Last Admin: 02/16/21 15:54 Dose: 20 mg Documented by: Furosemide (Furosemide 40 Mg/4 Ml Vial) 40 mg IVPUSH ONETIME ONE Stop: 02/23/21 16:01 Last Admin: 02/23/21 16:00 Dose: 40 mg Documented by: Glucagon (Glucagon,Human Recombinant 1 Mg Vial) 1 mg IM Q15M PRN PRN Reason: Hypoglycemia Heparin Sodium (Porcine) (Heparin Sodium 5,000 Units/Ml Vial) 4,700 units IV ONETIME ONE Stop: 02/17/21 08:31 Last Admin: 02/17/21 08:34 Dose: 4,700 units Documented by: Heparin Sodium (Porcine) (Heparin Sodium 5,000 Units/Ml Vial) 1,000 units IVPUSH ONETIME ONE Stop: 02/17/21 22:56 Last Admin: 02/17/21 23:14 Dose: 1,000 units Documented by: Heparin Sodium (Porcine) (Heparin Sodium 5,000 Units/Ml Vial) 2,000 units IVPUSH .BOLUS ONE Stop: 02/18/21 09:18 Last Admin: 02/18/21 09:35 Dose: 2,000 units Documented by: Heparin Sodium (Porcine) (Heparin Sodium 5,000 Units/Ml Vial) 2,000 units IVPUSH ONETIME ONE Stop: 02/18/21 22:43 Last Admin: 02/18/21 22:55 Dose: 2,000 units Documented by: Sodium Chloride (Normal Saline) 1,000 mls @ 999 mls/hr IV .BOLUS ONE Stop: 02/16/21 15:00 Last Admin: 02/16/21 17:42 Dose: 999 mls/hr Documented by: Albumin Human (Buminate 5%) 250 mls @ 250 mls/hr IV ASDIRECTED ERIN Last Admin: 02/16/21 15:01 Dose: 250 mls/hr Documented by: Sodium Bicarbonate 100 meq/ (Dextrose/Water) 1,100 mls @ 100 mls/hr IV ONETIME ONE Stop: 02/17/21 02:02 Last Admin: 02/16/21 15:18 Dose: 100 mls/hr Documented by: Insulin Regular in 0.9 % NACL (Myxredlin In Ns 100 Unit/100 Ml) 100 unit in 100 mls @ 7.82 mls/hr IV TITRATE ERIN; Protocol Sodium Bicarbonate 100 meq/ (Dextrose/Water) 1,100 mls @ 999 mls/hr IV ONETIME ONE Stop: 02/16/21 18:27 Last Admin: 02/16/21 22:50 Dose: Not Given Documented by: Sodium Chloride (Normal Saline) 1,000 mls @ 250 mls/hr IV ASDIRECTED ERIN Insulin Regular in 0.9 % NACL (Myxredlin In Ns 100 Unit/100 Ml) 100 unit in 100 mls @ 7.82 mls/hr IV TITRATE ERIN; Protocol Last Titration: 02/17/21 02:36 Dose: 0 units/kg/hr, 0 mls/hr Documented by: Levofloxacin/Dextrose 500 mg/ (Premix) 100 mls @ 100 mls/hr IV Q24H ERIN Last Admin: 02/16/21 20:54 Dose: 100 mls/hr Documented by: Sodium Chloride (Normal Saline) 1,000 mls @ 1,000 mls/hr IV ASDIRECTED ERIN Stop: 02/16/21 19:59 Last Admin: 02/16/21 19:02 Dose: 1,000 mls/hr Documented by: Potassium Chloride/Sodium Chloride (Normal Saline With 40 Meq Kcl) 1,000 mls @ 250 mls/hr IV ASDIRECTED ERIN Last Admin: 02/17/21 01:48 Dose: 250 mls/hr Documented by: Sodium Bicarbonate 100 meq/ (Dextrose/Water) 1,100 mls @ 150 mls/hr IV ONETIME ONE Stop: 02/17/21 10:39 Last Infusion: 02/17/21 07:55 Dose: 50 mls/hr Documented by: Heparin Sodium/Sodium Chloride (Heparin 25,000 Units In 1/2 Ns 500 Ml) 25,000 units in 500 mls @ 18.768 mls/hr IV TITRATE ERIN; Protocol Last Admin: 02/19/21 03:31 Dose: 22 units/kg/hr, 34.408 mls/hr Documented by: Levofloxacin/Dextrose 500 mg/ (Premix) 100 mls @ 100 mls/hr IV Q48H ERIN Last Admin: 02/18/21 17:21 Dose: 100 mls/hr Documented by: Lactated Ringer's (Ringers, Lactated) 1,000 mls @ 125 mls/hr IV ASDIRECTED [facility] Last Admin: 02/19/21 05:45 Dose: 125 mls/hr Documented by: Levofloxacin/Dextrose 750 mg/ (Premix) 150 mls @ 100 mls/hr IV Q24H ERIN Stop: 02/21/21 11:01 Last Admin: 02/21/21 11:15 Dose: 100 mls/hr Documented by: Potassium Chloride 20 meq/ (Premix) 100 mls @ 50 mls/hr IV ONETIME ONE Stop: 02/20/21 09:22 Last Admin: 02/20/21 08:00 Dose: 50 mls/hr Documented by: Calcium Gluconate 1 gm/ Sodium (Chloride) 110 mls @ 110 mls/hr IV ONETIME ONE Stop: 02/20/21 08:29 Last Admin: 02/20/21 08:14 Dose: 110 mls/hr Documented by: Albumin Human 50 gm/ Premix 200 mls @ 100 mls/hr IV NOW ONE Stop: 02/23/21 13:21 Last Admin: 02/23/21 12:12 Dose: 100 mls/hr Documented by: Insulin Glargine (Insulin Glarg,Human.Rec.Analog 100 Unit/Ml) 35 unit SUBCUT ONETIME ONE Stop: 02/17/21 04:13 Last Admin: 02/17/21 04:28 Dose: 35 units Documented by: Insulin Glargine (Insulin Glarg,Human.Rec.Analog 100 Unit/Ml) 20 unit SUBCUT ONETIME ONE Stop: 02/19/21 09:23 Last Admin: 02/19/21 09:57 Dose: 20 units Documented by: Insulin Glargine (Insulin Glarg,Human.Rec.Analog 100 Unit/Ml) 40 unit SUBCUT BEDTIME [facility] Last Admin: 02/19/21 21:47 Dose: 40 units Documented by: Insulin Human Lispro (Insulin Lispro 100 Units/Ml 3 Ml Vial) 5 unit SUBCUT ONETIME ONE Stop: 02/17/21 04:15 Last Admin: 02/17/21 04:29 Dose: 5 units Documented by: Insulin Human Lispro (Insulin Lispro 100 Units/Ml 3 Ml Vial) 0 unit SUBCUT WITHMEALSANDBED [facility]; Protocol Last Admin: 02/18/21 09:04 Dose: Not Given Documented by: Insulin Human Lispro (Insulin Lispro 100 Units/Ml 3 Ml Vial) 14 unit SUBCUT ONETIME ONE Stop: 02/19/21 12:27 Last Admin: 02/19/21 12:36 Dose: Not Given Documented by: Insulin Human Lispro (Insulin Lispro 100 Units/Ml 3 Ml Vial) 12 unit SUBCUT ONETIME ONE Stop: 02/19/21 12:27 Last Admin: 02/19/21 12:41 Dose: 12 units Documented by: Insulin Human Regular (Insulin Regular, Human 100 Units/Ml 3 Ml Vial) 5 unit IV ONETIME ONE Stop: 02/16/21 14:22 Last Admin: 02/16/21 14:59 Dose: 5 unit Documented by: Insulin Human Regular (Insulin Regular, Human 100 Units/Ml 3 Ml Vial) 10 unit IV STAT STA Stop: 02/16/21 17:11 Last Admin: 02/16/21 17:19 Dose: 10 units Documented by: Insulin Human Regular (Insulin Regular, Human 100 Units/Ml 3 Ml Vial) 10 unit IV ONETIME ONE Stop: 02/16/21 18:13 Last Admin: 02/16/21 18:14 Dose: 10 units Documented by: Lisinopril (Lisinopril 5 Mg Tab) 2.5 mg PO DAILY ERIN Metolazone (Metolazone 2.5 Mg Tab) 5 mg PO ONETIME ONE Stop: 02/27/21 06:01 Last Admin: 02/27/21 06:07 Dose: 5 mg Documented by: Nitroglycerin (Nitroglycerin 0.4 Mg Tab.Sl) 0.4 mg SL ONETIME ONE Stop: 02/18/21 15:41 Last Admin: 02/18/21 15:47 Dose: 0.4 mg Documented by: Nystatin (Nystatin Topical Powder 30 Gm Bottle) 0 gm TOP Q8H ERIN Last Admin: 02/19/21 03:43 Dose: 1 applic Documented by: Potassium Chloride (Potassium Chloride 10 Meq Tab.Er) 40 meq PO ONETIME ONE Stop: 02/17/21 03:20 Last Admin: 02/17/21 07:20 Dose: Not Given Documented by: Potassium Chloride (Potassium Chloride 10 Meq Tab.Er) 40 meq PO ONETIME ONE Stop: 02/17/21 07:52 Last Admin: 02/17/21 08:43 Dose: 40 meq Documented by: Potassium Chloride (Potassium Chloride 10% 20 Meq/15 Ml Soln 15 Ml Ud Cup) 40 meq PO ONETIME ONE Stop: 02/17/21 17:01 Last Admin: 02/17/21 17:41 Dose: 40 meq Documented by: Sodium Bicarbonate (Sodium Bicarbonate 8.4% 50 Meq/50 Ml Syringe) 50 meq IVPUSH ONETIME ONE Stop: 02/16/21 15:04 Last Admin: 02/16/21 15:08 Dose: 50 meq Documented by: Sodium Bicarbonate (Sodium Bicarbonate 8.4% 50 Meq/50 Ml Syringe) 100 meq IVPUSH ONETIME ONE Stop: 02/16/21 17:24 Last Admin: 02/16/21 17:49 Dose: 100 meq Documented by: Zolpidem Tartrate (Zolpidem 5 Mg Tab) 5 mg PO ONETIME ONE Stop: 02/18/21 22:06 Last Admin: 02/18/21 22:17 Dose: 5 mg Documented by: Zolpidem Tartrate (Zolpidem 5 Mg Tab) 5 mg PO ONETIME ONE Stop: 02/20/21 00:18 Last Admin: 02/20/21 00:38 Dose: 5 mg Documented by: - Exam Urinary Catheter Total Time: 2Days 13Hours Physical Findings Comments:: General: Coreen is a 70-year-old woman in no acute distress. Weight is down 4 pounds from yesterday Oropharynx is clear, mucous membranes are moist Heart: Regular rate and rhythm, 1 out of 6 to 2 out of 6 systolic murmur heard over her left apex Lungs: Clear to auscultation throughout Extremities: She still has some 1+ edema, but skin appears stable - Patient Data Lab Results Last 24 hrs: Laboratory Results - last 24 hr 02/26/21 02/26/21 02/26/21 Range/Units 11:57 14:04 16:53 WBC (5.0-10.0) 10^3/uL RBC (4.2-5.4) 10^6/uL Hgb (12.0-16.0) g/dL Hct (37.0-47.0) % MCV (80-100) fL MCH (27.0-34.0) pg MCHC (33.0-35.0) g/dL Plt Count (150-450) 10^3/uL Neut % (Auto) (42.2-75.2) % Lymph % (Auto) (20.5-50.1) % [place] % (Auto) (2-8) % Eos % (Auto) (1.0-3.0) % Baso % (Auto) (0.0-1.0) % Sodium (136-145) mmol/L Potassium (3.5-5.1) mmol/L Chloride (98-107) mmol/L Carbon Dioxide (21-32) mmol/L Anion Gap (7-13) mEq/L BUN (7-18) mg/dL Creatinine (0.55-1.02) mg/dL Est Cr Clr Drug Dosing mL/min Estimated GFR (MDRD) BUN/Creatinine Ratio (No establ ref range) Glucose (70-99) mg/dL POC Glucose 56 L 63 L 162 H (70-99) mg/dL Calcium (8.5-10.1) mg/dL Total Bilirubin (0.2-1.0) mg/dL AST (15-37) U/L ALT (14-59) U/L Alkaline Phosphatase (46-116) U/L B-Natriuretic Peptide (0-100) pg/ml Total Protein (6.4-8.2) g/dL Albumin (3.4-5.0) g/dL Globulin Albumin/Globulin Ratio 02/26/21 02/27/21 02/27/21 Range/Units 20:29 05:45 05:45 WBC 4.2 L (5.0-10.0) 10^3/uL RBC 4.23 (4.2-5.4) 10^6/uL Hgb 9.8 L (12.0-16.0) g/dL Hct 30.5 L (37.0-47.0) % MCV 72.1 L (80-100) fL MCH 23.2 L (27.0-34.0) pg MCHC 32.1 L (33.0-35.0) g/dL Plt Count 238 (150-450) 10^3/uL Neut % (Auto) 55.6 (42.2-75.2) % Lymph % (Auto) 27.1 (20.5-50.1) % [place] % (Auto) 16.9 H (2-8) % Eos % (Auto) 0.2 L (1.0-3.0) % Baso % (Auto) 0.2 (0.0-1.0) % Sodium 147 H (136-145) mmol/L Potassium 3.9 (3.5-5.1) mmol/L Chloride 111 H (98-107) mmol/L Carbon Dioxide 26 (21-32) mmol/L Anion Gap 13.9 H (7-13) mEq/L BUN 13 (7-18) mg/dL Creatinine 0.66 (0.55-1.02) mg/dL Est Cr Clr Drug Dosing 78.23 mL/min Estimated GFR (MDRD) > 60 BUN/Creatinine Ratio 19.7 (No establ ref range) Glucose 262 H (70-99) mg/dL POC Glucose 166 H (70-99) mg/dL Calcium 7.6 L (8.5-10.1) mg/dL Total Bilirubin 0.2 (0.2-1.0) mg/dL AST 11 L (15-37) U/L ALT 14 (14-59) U/L Alkaline Phosphatase 136 H (46-116) U/L B-Natriuretic Peptide 1140 H (0-100) pg/ml Total Protein 4.8 L (6.4-8.2) g/dL Albumin 1.9 L (3.4-5.0) g/dL Globulin 2.9 Albumin/Globulin Ratio 0.66 10/28/21 Range/Units 07:45 WBC (5.0-10.0) 10^3/uL RBC (4.2-5.4) 10^6/uL Hgb (12.0-16.0) g/dL Hct (37.0-47.0) % MCV (80-100) fL MCH (27.0-34.0) pg MCHC (33.0-35.0) g/dL Plt Count (150-450) 10^3/uL Neut % (Auto) (42.2-75.2) % Lymph % (Auto) (20.5-50.1) % [place] % (Auto) (2-8) % Eos % (Auto) (1.0-3.0) % Baso % (Auto) (0.0-1.0) % Sodium (136-145) mmol/L Potassium (3.5-5.1) mmol/L Chloride (98-107) mmol/L Carbon Dioxide (21-32) mmol/L Anion Gap (7-13) mEq/L BUN (7-18) mg/dL Creatinine (0.55-1.02) mg/dL Est Cr Clr Drug Dosing mL/min Estimated GFR (MDRD) BUN/Creatinine Ratio (No establ ref range) Glucose (70-99) mg/dL POC Glucose 193 H (70-99) mg/dL Calcium (8.5-10.1) mg/dL Total Bilirubin (0.2-1.0) mg/dL AST (15-37) U/L ALT (14-59) U/L Alkaline Phosphatase (46-116) U/L B-Natriuretic Peptide (0-100) pg/ml Total Protein (6.4-8.2) g/dL Albumin (3.4-5.0) g/dL Globulin Albumin/Globulin Ratio Result Diagrams: 02/27/21 05:45 02/27/21 05:45 Sepsis Event Note - Evaluation Sepsis Screening Result: No Definite Risk - Focused Exam Vital Signs: Vital Signs Temp Pulse Pulse Resp BP BP Pulse Ox 02/27/21 08:50 73 129/70 02/27/21 08:49 129/70 02/27/21 07:51 98.0 F 73 20 129/70 98 02/27/21 04:00 97.9 F 77 20 115/64 98 02/27/21 00:00 98.4 F 77 22 H 133/66 97 - Problem List & Annotations (1) Acute coronary syndrome with high troponin SNOMED Code(s): 922791401, 175643975 Code(s): I24.9 - ACUTE ISCHEMIC HEART DISEASE, UNSPECIFIED Status: Acute Current Visit: Yes (2) Failure to thrive SNOMED Code(s): 72155461 Code(s): BNV3011 - Status: Acute Current Visit: Yes (3) Unable to walk SNOMED Code(s): 051213896 Code(s): R26.2 - DIFFICULTY IN WALKING, NOT ELSEWHERE CLASSIFIED Status: Chronic Current Visit: Yes (4) DKA (diabetic ketoacidosis) SNOMED Code(s): 374804678, 234656120 Code(s): E11.10 - TYPE 2 DIABETES MELLITUS WITH KETOACIDOSIS WITHOUT COMA Status: Chronic Current Visit: Yes Qualifiers: Diabetes mellitus type: type 2 Diabetes mellitus complication detail: without coma Qualified Code(s): E11.10 - Type 2 diabetes mellitus with ketoacidosis without coma (5) Weakness SNOMED Code(s): 73236039 Code(s): R53.1 - WEAKNESS Status: Chronic Current Visit: No (6) CHF exacerbation SNOMED Code(s): 356242841, 63802356433116 Code(s): I50.9 - HEART FAILURE, UNSPECIFIED Status: Chronic Current Visit: Yes Qualifiers: Heart failure type: combined systolic and diastolic Qualified Code(s): I50.43 - Acute on chronic combined systolic (congestive) and diastolic (congestive) heart failure - Problem List Review Problem List Initiated/Reviewed/Updated: Yes - Assessment Assessment:: Assessment: 1. 70-year-old woman with acute coronary syndrome, resolved 2. Acute on chronic congestive heart failure, unknown type, most likely systolic predominant -Per cardiology, is on dual antiplatelet therapy with aspirin and Plavix -Intolerant to statins, so is on ezetimibe -Continue carvedilol and lisinopril -Is now on 1500 mL fluid restriction, will watch her daily weights, we may need to back that down to 1000mL 3. Uncontrolled type 2 diabetes mellitus, insulin-dependent -Doing well with 20 of Lantus at night, and sliding scale lispro with meals -Continue lisinopril 4. Acute metabolic acidosis secondary to #1 and #2, resolved 5. Past history of cerebrovascular accident, leaving her with mobility issues and difficulty caring for herself and ADLs -She continues to refuse physical and occupational therapy here. She is bedbound, as she has no mobility at this time -Nursing is watching her skin carefully for signs of breakdown 6. Malnutrition and failure to thrive -Dietary continues to work with her to increase protein intake, to help prevent skin breakdown, and get her mobilized 7. VTE prophylaxis: Is on Lovenox 40 mg SQ daily 8. Discharge planning continues to work on finding [place] [facility] placement for [place]. [place] has been a significant barrier to this, even though she has been told by multiple sources, including myself and her family, that since she is unsafe at home, there is no possibility of her returning home at this time.
[2021-02-27] MEDS: Ezetimibe 10 MG Tab PO SCH (21:08)
[2021-02-27] MEDS: Insulin Glarg,Human.Rec.Analog 100 Unit/ML SUBCUT SCH (21:11)
[2021-02-27] MEDS: Zolpidem 5 MG Tab PO PRN (21:31)
[2021-02-28] MEDS: Nystatin Topical Powder 30 GM Bottle TOP SCH ×3 (06:18→22:12)
[2021-02-28] MEDS: 50% Dextrose in Water 50 ML Syringe IVPUSH PRN (08:35)
[2021-02-28] MEDS: Insulin Lispro 100 Units/ML 3 ML Vial SUBCUT SCH ×4 (08:39→22:09)
[2021-02-28] MEDS: Clopidogrel 75 MG Tab PO SCH (09:52)
[2021-02-28] MEDS: Ferrous Sulfate 325 MG Tab PO SCH (09:52)
[2021-02-28] MEDS: Enoxaparin 40 MG/0.4 ML Syringe SUBCUT SCH (09:52)
[2021-02-28] MEDS: Carvedilol 3.125 MG Tab PO SCH ×2 (09:52→17:11)
[2021-02-28] MEDS: Aspirin 81 MG Tab.EC PO SCH (09:53)
[2021-02-28] MEDS: Lisinopril 10 MG Tab PO SCH (09:53)
--- NOTE | 2021-02-28 10:04 | PCM.PN ---
- General Info Date of Service: 02/26/21 Admission Dx/Problem (Free Text): Admission Diagnosis/Problem Admission Diagnosis/Problem Diabetic ketoacidosis without coma Subjective Update: Coreen has been stable the past 24 hours. Blood sugar this morning was 24, responded well to 1 amp of D50. Discharge planning continues to try to find placement for her. She is ready for discharge to care home, but finding a care home for her has been a challenge. - Patient Data Vitals - Most Recent: Last Vital Signs Temp 96.3 F L 02/28/21 08:00 Pulse 79 02/28/21 09:52 Resp 20 02/28/21 08:00 BP 170/83 H 02/28/21 09:53 Pulse Ox 97 02/28/21 08:00 Weight - Most Recent: 209 lb 8 oz I&O - Last 24 Hours: Intake & Output 02/27/21 02/28/21 02/28/21 22:59 06:59 14:59 Intake Total 540 50 Output Total 714 432 Balance -174 -382 Lab Results Last 24 Hours: Laboratory Results - last 24 hr 02/27/21 02/27/21 02/27/21 Range/Units 11:27 16:54 20:45 POC Glucose 220 H 252 H 183 H (70-99) mg/dL 02/28/21 02/28/21 02/28/21 Range/Units 08:03 08:18 08:35 POC Glucose 43 L* 55 L 69 L (70-99) mg/dL Med Orders - Current: Current Medications Acetaminophen (Acetaminophen 500 Mg Tab) 500 mg PO Q4H PRN PRN Reason: Pain/Fever Last Admin: 02/27/21 08:49 Dose: 500 mg Documented by: Aspirin (Aspirin 81 Mg Tab.Ec) 81 mg PO DAILY [facility] Last Admin: 02/28/21 09:53 Dose: 81 mg Documented by: Carvedilol (Carvedilol 3.125 Mg Tab) 6.25 mg PO BIDMEALS [facility] Clopidogrel Bisulfate (Clopidogrel 75 Mg Tab) 75 mg PO DAILY [facility] [place] Last Admin: 02/28/21 09:52 Dose: 75 mg Documented by: Dextrose/Water (50% Dextrose In Water 50 Ml Syringe) 25 ml IVPUSH Q15M PRN PRN Reason: Hypoglycemia Last Admin: 02/28/21 08:35 Dose: 25 ml Documented by: Ezetimibe (Ezetimibe 10 Mg Tab) 10 mg PO BEDTIME [facility] [place] Last Admin: 02/27/21 21:08 Dose: 10 mg Documented by: Enoxaparin Sodium (Enoxaparin 40 Mg/0.4 Ml Syringe) 40 mg SUBCUT DAILY [facility] [place] Last Admin: 02/28/21 09:52 Dose: 40 mg Documented by: Ferrous Sulfate (Ferrous Sulfate 325 Mg Tab) 325 mg PO Q48H [facility] [place] Last Admin: 02/28/21 09:52 Dose: 325 mg Documented by: Glucagon (Glucagon,Human Recombinant 1 Mg Vial) 1 mg IM Q15M PRN PRN Reason: Hypoglycemia Insulin Glargine (Insulin Glarg,Human.Rec.Analog 100 Unit/Ml) 20 unit SUBCUT BEDTIME [facility] Last Admin: 02/27/21 21:11 Dose: 20 units Documented by: Insulin Human Lispro (Insulin Lispro 100 Units/Ml 3 Ml Vial) 0 unit SUBCUT WITHMEALSANDBED [facility]; Protocol Last Admin: 02/28/21 08:39 Dose: Not Given Documented by: Lisinopril (Lisinopril 10 Mg Tab) 10 mg PO DAILY [facility] Last Admin: 02/28/21 09:53 Dose: 10 mg Documented by: Melatonin (Melatonin 3 Mg Tab) 6 mg PO BEDTIME PRN PRN Reason: Sleep Last Admin: 02/22/21 21:29 Dose: 6 mg Documented by: Nystatin (Nystatin Topical Powder 30 Gm Bottle) 0 gm TOP Q8HR [facility] [place] Last Admin: 02/28/21 06:18 Dose: 1 applic Documented by: Zolpidem Tartrate (Zolpidem 5 Mg Tab) 5 mg PO BEDTIME PRN PRN Reason: Sleep Last Admin: 02/27/21 21:31 Dose: 5 mg Documented by: Discontinued Medications COVID-19 Vaccine mRNA LNP-S (PFR) (PF) (Covid-19 Vacc, Mrna(Pfizer)/Pf 30 Mcg/0.3 Ml Vial) 30 mcg IM .ONCE ONE Stop: 02/25/21 16:21 Last Admin: 02/25/21 17:11 Dose: Not Given Documented by: Carvedilol (Carvedilol 6.25 Mg Tab) 6.25 mg PO ONETIME ONE Stop: 02/19/21 12:28 Last Admin: 02/19/21 12:36 Dose: Not Given Documented by: Carvedilol (Carvedilol 3.125 Mg Tab) 3.125 mg PO BIDMEALS [facility] Last Admin: 02/28/21 09:52 Dose: 3.125 mg Documented by: Clopidogrel Bisulfate (Clopidogrel 75 Mg Tab) 225 mg PO ONETIME STA Stop: 02/17/21 11:11 Last Admin: 02/17/21 11:24 Dose: 225 mg Documented by: Dextrose/Water (50% Dextrose In Water 50 Ml Syringe) 50 ml IVPUSH Q15M PRN PRN Reason: Hypoglycemia Dextrose/Water (50% Dextrose In Water 50 Ml Syringe) 50 ml IVPUSH Q15M PRN PRN Reason: Hypoglycemia Dextrose/Water (50% Dextrose In Water 50 Ml Syringe) 50 ml IVPUSH Q15M PRN PRN Reason: Hypoglycemia Dextrose/Water (50% Dextrose In Water 50 Ml Syringe) Confirm Administered Dose 50 ml .ROUTE .STK-MED ONE Stop: 02/20/21 07:41 Last Admin: 02/20/21 08:14 Dose: Not Given Documented by: Dextrose/Water (50% Dextrose In Water 50 Ml Syringe) 50 ml IVPUSH ONETIME ONE Stop: 02/26/21 07:46 Last Admin: 02/26/21 07:45 Dose: 50 ml Documented by: Furosemide (Furosemide 20 Mg/2 Ml Vial) 20 mg IVPUSH ONETIME ONE Stop: 02/16/21 15:51 Last Admin: 02/16/21 15:54 Dose: 20 mg Documented by: Furosemide (Furosemide 40 Mg/4 Ml Vial) 40 mg IVPUSH ONETIME ONE Stop: 02/23/21 16:01 Last Admin: 02/23/21 16:00 Dose: 40 mg Documented by: Glucagon (Glucagon,Human Recombinant 1 Mg Vial) 1 mg IM Q15M PRN PRN Reason: Hypoglycemia Heparin Sodium (Porcine) (Heparin Sodium 5,000 Units/Ml Vial) 4,700 units IV ONETIME ONE Stop: 02/17/21 08:31 Last Admin: 02/17/21 08:34 Dose: 4,700 units Documented by: Heparin Sodium (Porcine) (Heparin Sodium 5,000 Units/Ml Vial) 1,000 units IVPUSH ONETIME ONE Stop: 02/17/21 22:56 Last Admin: 02/17/21 23:14 Dose: 1,000 units Documented by: Heparin Sodium (Porcine) (Heparin Sodium 5,000 Units/Ml Vial) 2,000 units IVPUSH .BOLUS ONE Stop: 02/18/21 09:18 Last Admin: 02/18/21 09:35 Dose: 2,000 units Documented by: Heparin Sodium (Porcine) (Heparin Sodium 5,000 Units/Ml Vial) 2,000 units IVPUSH ONETIME ONE Stop: 02/18/21 22:43 Last Admin: 02/18/21 22:55 Dose: 2,000 units Documented by: Sodium Chloride (Normal Saline) 1,000 mls @ 999 mls/hr IV .BOLUS ONE Stop: 02/16/21 15:00 Last Admin: 02/16/21 17:42 Dose: 999 mls/hr Documented by: Albumin Human (Buminate 5%) 250 mls @ 250 mls/hr IV ASDIRECTED [facility] Last Admin: 02/16/21 15:01 Dose: 250 mls/hr Documented by: Sodium Bicarbonate 100 meq/ (Dextrose/Water) 1,100 mls @ 100 mls/hr IV ONETIME ONE Stop: 02/17/21 02:02 Last Admin: 02/16/21 15:18 Dose: 100 mls/hr Documented by: Insulin Regular in 0.9 % NACL (Myxredlin In Ns 100 Unit/100 Ml) 100 unit in 100 mls @ 7.82 mls/hr IV TITRATE [facility]; Protocol Sodium Bicarbonate 100 meq/ (Dextrose/Water) 1,100 mls @ 999 mls/hr IV ONETIME ONE Stop: 02/16/21 18:27 Last Admin: 02/16/21 22:50 Dose: Not Given Documented by: Sodium Chloride (Normal Saline) 1,000 mls @ 250 mls/hr IV ASDIRECTED [facility]IN Insulin Regular in 0.9 % NACL (Myxredlin In Ns 100 Unit/100 Ml) 100 unit in 100 mls @ 7.82 mls/hr IV TITRATE [facility]; Protocol Last Titration: 02/17/21 02:36 Dose: 0 units/kg/hr, 0 mls/hr Documented by: Levofloxacin/Dextrose 500 mg/ (Premix) 100 mls @ 100 mls/hr IV Q24H [facility] Last Admin: 02/16/21 20:54 Dose: 100 mls/hr Documented by: Sodium Chloride (Normal Saline) 1,000 mls @ 1,000 mls/hr IV ASDIRECTED [facility] Stop: 02/16/21 19:59 Last Admin: 02/16/21 19:02 Dose: 1,000 mls/hr Documented by: Potassium Chloride/Sodium Chloride (Normal Saline With 40 Meq Kcl) 1,000 mls @ 250 mls/hr IV ASDIRECTED [facility] Last Admin: 02/17/21 01:48 Dose: 250 mls/hr Documented by: Sodium Bicarbonate 100 meq/ (Dextrose/Water) 1,100 mls @ 150 mls/hr IV ONETIME ONE Stop: 02/17/21 10:39 Last Infusion: 02/17/21 07:55 Dose: 50 mls/hr Documented by: Heparin Sodium/Sodium Chloride (Heparin 25,000 Units In 1/2 Ns 500 Ml) 25,000 units in 500 mls @ 18.768 mls/hr IV TITRATE [facility]; Protocol Last Admin: 02/19/21 03:31 Dose: 22 units/kg/hr, 34.408 mls/hr Documented by: Levofloxacin/Dextrose 500 mg/ (Premix) 100 mls @ 100 mls/hr IV Q48H [facility] Last Admin: 02/18/21 17:21 Dose: 100 mls/hr Documented by: Lactated Ringer's (Ringers, Lactated) 1,000 mls @ 125 mls/hr IV ASDIRECTED [facility] Last Admin: 02/19/21 05:45 Dose: 125 mls/hr Documented by: Levofloxacin/Dextrose 750 mg/ (Premix) 150 mls @ 100 mls/hr IV Q24H [facility] Stop: 02/21/21 11:01 Last Admin: 02/21/21 11:15 Dose: 100 mls/hr Documented by: Potassium Chloride 20 meq/ (Premix) 100 mls @ 50 mls/hr IV ONETIME ONE Stop: 02/20/21 09:22 Last Admin: 02/20/21 08:00 Dose: 50 mls/hr Documented by: Calcium Gluconate 1 gm/ Sodium (Chloride) 110 mls @ 110 mls/hr IV ONETIME ONE Stop: 02/20/21 08:29 Last Admin: 02/20/21 08:14 Dose: 110 mls/hr Documented by: Albumin Human 50 gm/ Premix 200 mls @ 100 mls/hr IV NOW ONE Stop: 02/23/21 13:21 Last Admin: 02/23/21 12:12 Dose: 100 mls/hr Documented by: Insulin Glargine (Insulin Glarg,Human.Rec.Analog 100 Unit/Ml) 35 unit SUBCUT ONETIME ONE Stop: 02/17/21 04:13 Last Admin: 02/17/21 04:28 Dose: 35 units Documented by: Insulin Glargine (Insulin Glarg,Human.Rec.Analog 100 Unit/Ml) 20 unit SUBCUT ONETIME ONE Stop: 02/19/21 09:23 Last Admin: 02/19/21 09:57 Dose: 20 units Documented by: Insulin Glargine (Insulin Glarg,Human.Rec.Analog 100 Unit/Ml) 40 unit SUBCUT BEDTIME [facility] Last Admin: 02/19/21 21:47 Dose: 40 units Documented by: Insulin Human Lispro (Insulin Lispro 100 Units/Ml 3 Ml Vial) 5 unit SUBCUT ONETIME ONE Stop: 02/17/21 04:15 Last Admin: 02/17/21 04:29 Dose: 5 units Documented by: Insulin Human Lispro (Insulin Lispro 100 Units/Ml 3 Ml Vial) 0 unit SUBCUT WITHMEALSANDBED [facility]; Protocol Last Admin: 02/18/21 09:04 Dose: Not Given Documented by: Insulin Human Lispro (Insulin Lispro 100 Units/Ml 3 Ml Vial) 14 unit SUBCUT ONETIME ONE Stop: 02/19/21 12:27 Last Admin: 02/19/21 12:36 Dose: Not Given Documented by: Insulin Human Lispro (Insulin Lispro 100 Units/Ml 3 Ml Vial) 12 unit SUBCUT ONETIME ONE Stop: 02/19/21 12:27 Last Admin: 02/19/21 12:41 Dose: 12 units Documented by: Insulin Human Regular (Insulin Regular, Human 100 Units/Ml 3 Ml Vial) 5 unit IV ONETIME ONE Stop: 02/16/21 14:22 Last Admin: 02/16/21 14:59 Dose: 5 unit Documented by: Insulin Human Regular (Insulin Regular, Human 100 Units/Ml 3 Ml Vial) 10 unit IV STAT STA Stop: 02/16/21 17:11 Last Admin: 02/16/21 17:19 Dose: 10 units Documented by: Insulin Human Regular (Insulin Regular, Human 100 Units/Ml 3 Ml Vial) 10 unit IV ONETIME ONE Stop: 02/16/21 18:13 Last Admin: 02/16/21 18:14 Dose: 10 units Documented by: Lisinopril (Lisinopril 5 Mg Tab) 2.5 mg PO DAILY [facility] Metolazone (Metolazone 2.5 Mg Tab) 5 mg PO ONETIME ONE Stop: 02/27/21 06:01 Last Admin: 02/27/21 06:07 Dose: 5 mg Documented by: Nitroglycerin (Nitroglycerin 0.4 Mg Tab.Sl) 0.4 mg SL ONETIME ONE Stop: 02/18/21 15:41 Last Admin: 02/18/21 15:47 Dose: 0.4 mg Documented by: Nystatin (Nystatin Topical Powder 30 Gm Bottle) 0 gm TOP Q8H [facility] Last Admin: 02/19/21 03:43 Dose: 1 applic Documented by: Potassium Chloride (Potassium Chloride 10 Meq Tab.Er) 40 meq PO ONETIME ONE Stop: 02/17/21 03:20 Last Admin: 02/17/21 07:20 Dose: Not Given Documented by: Potassium Chloride (Potassium Chloride 10 Meq Tab.Er) 40 meq PO ONETIME ONE Stop: 02/17/21 07:52 Last Admin: 02/17/21 08:43 Dose: 40 meq Documented by: Potassium Chloride (Potassium Chloride 10% 20 Meq/15 Ml Soln 15 Ml Ud Cup) 40 meq PO ONETIME ONE Stop: 02/17/21 17:01 Last Admin: 02/17/21 17:41 Dose: 40 meq Documented by: Sodium Bicarbonate (Sodium Bicarbonate 8.4% 50 Meq/50 Ml Syringe) 50 meq IVPUSH ONETIME ONE Stop: 02/16/21 15:04 Last Admin: 02/16/21 15:08 Dose: 50 meq Documented by: Sodium Bicarbonate (Sodium Bicarbonate 8.4% 50 Meq/50 Ml Syringe) 100 meq IVPUSH ONETIME ONE Stop: 02/16/21 17:24 Last Admin: 02/16/21 17:49 Dose: 100 meq Documented by: Zolpidem Tartrate (Zolpidem 5 Mg Tab) 5 mg PO ONETIME ONE Stop: 02/18/21 22:06 Last Admin: 10/19/21 22:17 Dose: 5 mg Documented by: Zolpidem Tartrate (Zolpidem 5 Mg Tab) 5 mg PO ONETIME ONE Stop: 02/20/21 00:18 Last Admin: 02/20/21 00:38 Dose: 5 mg Documented by: - Exam Urinary Catheter Total Time: 2Days 13Hours - Patient Data Lab Results Last 24 hrs: Laboratory Results - last 24 hr 02/27/21 02/27/21 02/27/21 Range/Units 11:27 16:54 20:45 POC Glucose 220 H 252 H 183 H (70-99) mg/dL 02/28/21 02/28/21 02/28/21 Range/Units 08:03 08:18 08:35 POC Glucose 43 L* 55 L 69 L (70-99) mg/dL Result Diagrams: 02/27/21 05:45 02/27/21 05:45 Sepsis Event Note - Evaluation Sepsis Screening Result: No Definite Risk - Focused Exam Vital Signs: Vital Signs Temp Pulse Pulse Resp BP BP Pulse Ox 02/28/21 09:53 170/83 H 02/28/21 09:52 79 170/83 H 02/28/21 08:00 96.3 F L 79 20 170/83 H 97 02/28/21 04:00 97.7 F 74 22 H 139/76 97 02/28/21 00:00 98.0 F 77 20 138/70 95 - Problem List & Annotations (1) Acute coronary syndrome with high troponin SNOMED Code(s): 282942862, 890815490 Code(s): I24.9 - ACUTE ISCHEMIC HEART DISEASE, UNSPECIFIED Status: Acute Current Visit: Yes (2) Failure to thrive SNOMED Code(s): 13147104 Code(s): [id number] - Status: Acute Current Visit: Yes (3) Unable to walk SNOMED Code(s): 203331925 Code(s): R26.2 - DIFFICULTY IN WALKING, NOT ELSEWHERE CLASSIFIED Status: Chronic Current Visit: Yes (4) DKA (diabetic ketoacidosis) SNOMED Code(s): 717053198, 571468472 Code(s): E11.10 - TYPE 2 DIABETES MELLITUS WITH KETOACIDOSIS WITHOUT COMA Status: Chronic Current Visit: Yes Qualifiers: Diabetes mellitus type: type 2 Diabetes mellitus complication detail: without coma Qualified Code(s): E11.10 - Type 2 diabetes mellitus with ketoacidosis without coma (5) Weakness SNOMED Code(s): 83953906 Code(s): R53.1 - WEAKNESS Status: Chronic Current Visit: No (6) CHF exacerbation SNOMED Code(s): 506385891, 52411919381043 Code(s): I50.9 - HEART FAILURE, UNSPECIFIED Status: Chronic Current Visit: Yes Qualifiers: Heart failure type: combined systolic and diastolic Qualified Code(s): I50.43 - Acute on chronic combined systolic (congestive) and diastolic (congestive) heart failure - Problem List Review Problem List Initiated/Reviewed/Updated: Yes - My Orders Last 24 Hours: My Active Orders 02/28/21 18:00 carvediloL [Coreg] 6.25 mg PO BIDMEALS - Assessment Assessment:: Assessment: 1. 70-year-old woman with acute coronary syndrome, resolved 2. Acute on chronic congestive heart failure, unknown type, most likely systolic predominant -Per cardiology, is on dual antiplatelet therapy with aspirin and Plavix -Intolerant to statins, so is on ezetimibe -Continue carvedilol and lisinopril -Is now on 1500 mL fluid restriction, will watch her daily weights, we may need to back that down to 1000mL 3. Uncontrolled type 2 diabetes mellitus, insulin-dependent -Doing well with 20 of Lantus at night, and sliding scale lispro with meals -Continue lisinopril 4. Acute metabolic acidosis secondary to #1 and #2, resolved 5. Past history of cerebrovascular accident, leaving her with mobility issues and difficulty caring for herself and ADLs -She continues to refuse physical and occupational therapy here. She is bedbound, as she has no mobility at this time -Nursing is watching her skin carefully for signs of breakdown 6. Malnutrition and failure to thrive -Dietary continues to work with her to increase protein intake, to help prevent skin breakdown, and get her mobilized 7. VTE prophylaxis: Is on Lovenox 40 mg SQ daily 8. Discharge planning continues to work on finding care home placement for her. Coreen has been a significant barrier to this, even though she has been told by multiple sources, including myself and her family, that since she is u nsafe at home, there is no possibility of her returning home at this time. - Plan Plan:: 1. Continue sliding scale insulin as well as mealtime insulin and Lantus at 20 units at bedtime 2. Continue post ACS regimen, including Zetia, metoprolol, and lisinopril 3. I will continue to try to convince her to participate with physical and Occupational Therapy, and we have been trying to communicate with Coreen that she will need most likely long-term admission to care home or assisted living 4. VTE prophylaxis: Lovenox, 40 mg SQ daily 5. We will continue to work with Coreen, hopefully having a family meeting with her and her daughters to discuss future plans 6. We will continue to watch daily weights, if she does not continue to diurese, we may need to repeat the albumin followed by IV Lasix. I may also consider a dose of metolazone. 7. Nursing and nutrition will work carefully together to try to improve her nutrition as well as do skin cares to prevent decubitus breakdown. Since she may be here of quite some duration, we will have to be diligent about this going forward
--- NOTE | 2021-02-28 10:07 | PCM.PN ---
- General Info Date of Service: 02/28/21 Admission Dx/Problem (Free Text): Admission Diagnosis/Problem Admission Diagnosis/Problem Diabetic ketoacidosis without coma Subjective Update: Coreen is stable today. She had another hypoglycemic event this morning, with a blood sugar of 45 prior to her breakfast. It responded nicely to carbohydrate. She continues to be a hindrance to our discharge planning, will at times be okay with the thought of transfer to [facility] for rehabilitation, and other times will decline this out right - Patient Data Vitals - Most Recent: Last Vital Signs Temp 96.3 F L 02/28/21 08:00 Pulse 79 02/28/21 09:52 Resp 20 02/28/21 08:00 BP 170/83 H 02/28/21 09:53 Pulse Ox 97 02/28/21 08:00 Weight - Most Recent: 209 lb 8 oz I&O - Last 24 Hours: Intake & Output 02/27/21 02/28/21 02/28/21 22:59 06:59 14:59 Intake Total 540 50 Output Total 714 432 Balance -174 -382 Lab Results Last 24 Hours: Laboratory Results - last 24 hr 02/27/21 02/27/21 02/27/21 Range/Units 11:27 16:54 20:45 POC Glucose 220 H 252 H 183 H (70-99) mg/dL 02/28/21 02/28/21 02/28/21 Range/Units 08:03 08:18 08:35 POC Glucose 43 L* 55 L 69 L (70-99) mg/dL Med Orders - Current: Current Medications Acetaminophen (Acetaminophen 500 Mg Tab) 500 mg PO Q4H PRN PRN Reason: Pain/Fever Last Admin: 02/27/21 08:49 Dose: 500 mg Documented by: Aspirin (Aspirin 81 Mg Tab.Ec) 81 mg PO DAILY [facility] Last Admin: 02/28/21 09:53 Dose: 81 mg Documented by: Carvedilol (Carvedilol 3.125 Mg Tab) 6.25 mg PO BIDMEALS [facility] Clopidogrel Bisulfate (Clopidogrel 75 Mg Tab) 75 mg PO DAILY [facility] Last Admin: 02/28/21 09:52 Dose: 75 mg Documented by: Dextrose/Water (50% Dextrose In Water 50 Ml Syringe) 25 ml IVPUSH Q15M PRN PRN Reason: Hypoglycemia Last Admin: 02/28/21 08:35 Dose: 25 ml Documented by: Ezetimibe (Ezetimibe 10 Mg Tab) 10 mg PO BEDTIME [facility] Last Admin: 02/27/21 21:08 Dose: 10 mg Documented by: Enoxaparin Sodium (Enoxaparin 40 Mg/0.4 Ml Syringe) 40 mg SUBCUT DAILY [facility] Last Admin: 02/28/21 09:52 Dose: 40 mg Documented by: Ferrous Sulfate (Ferrous Sulfate 325 Mg Tab) 325 mg PO Q48H [facility] Last Admin: 02/28/21 09:52 Dose: 325 mg Documented by: Glucagon (Glucagon,Human Recombinant 1 Mg Vial) 1 mg IM Q15M PRN PRN Reason: Hypoglycemia Insulin Glargine (Insulin Glarg,Human.Rec.Analog 100 Unit/Ml) 20 unit SUBCUT BEDTIME [facility] Last Admin: 02/27/21 21:11 Dose: 20 units Documented by: Insulin Human Lispro (Insulin Lispro 100 Units/Ml 3 Ml Vial) 0 unit SUBCUT WITHMEALSANDBED [facility]; Protocol Last Admin: 02/28/21 08:39 Dose: Not Given Documented by: Lisinopril (Lisinopril 10 Mg Tab) 10 mg PO DAILY [facility] Last Admin: 02/28/21 09:53 Dose: 10 mg Documented by: Melatonin (Melatonin 3 Mg Tab) 6 mg PO BEDTIME PRN PRN Reason: Sleep Last Admin: 02/22/21 21:29 Dose: 6 mg Documented by: Nystatin (Nystatin Topical Powder 30 Gm Bottle) 0 gm TOP Q8HR [facility] Last Admin: 02/28/21 06:18 Dose: 1 applic Documented by: Zolpidem Tartrate (Zolpidem 5 Mg Tab) 5 mg PO BEDTIME PRN PRN Reason: Sleep Last Admin: 02/27/21 21:31 Dose: 5 mg Documented by: Discontinued Medications COVID-19 Vaccine mRNA LNP-S (PFR) (PF) (Covid-19 Vacc, Mrna(Pfizer)/Pf 30 Mcg/0.3 Ml Vial) 30 mcg IM .ONCE ONE Stop: 02/25/21 16:21 Last Admin: 02/25/21 17:11 Dose: Not Given Documented by: Carvedilol (Carvedilol 6.25 Mg Tab) 6.25 mg PO ONETIME ONE Stop: 02/19/21 12:28 Last Admin: 02/19/21 12:36 Dose: Not Given Documented by: Carvedilol (Carvedilol 3.125 Mg Tab) 3.125 mg PO BIDMEALS [facility] Last Admin: 02/28/21 09:52 Dose: 3.125 mg Documented by: Clopidogrel Bisulfate (Clopidogrel 75 Mg Tab) 225 mg PO ONETIME STA Stop: 02/17/21 11:11 Last Admin: 02/17/21 11:24 Dose: 225 mg Documented by: Dextrose/Water (50% Dextrose In Water 50 Ml Syringe) 50 ml IVPUSH Q15M PRN PRN Reason: Hypoglycemia Dextrose/Water (50% Dextrose In Water 50 Ml Syringe) 50 ml IVPUSH Q15M PRN PRN Reason: Hypoglycemia Dextrose/Water (50% Dextrose In Water 50 Ml Syringe) 50 ml IVPUSH Q15M PRN PRN Reason: Hypoglycemia Dextrose/Water (50% Dextrose In Water 50 Ml Syringe) Confirm Administered Dose 50 ml .ROUTE .ST-MED ONE Stop: 02/20/21 07:41 Last Admin: 02/20/21 08:14 Dose: Not Given Documented by: Dextrose/Water (50% Dextrose In Water 50 Ml Syringe) 50 ml IVPUSH ONETIME ONE Stop: 02/26/21 07:46 Last Admin: 02/26/21 07:45 Dose: 50 ml Documented by: Furosemide (Furosemide 20 Mg/2 Ml Vial) 20 mg IVPUSH ONETIME ONE Stop: 02/16/21 15:51 Last Admin: 02/16/21 15:54 Dose: 20 mg Documented by: Furosemide (Furosemide 40 Mg/4 Ml Vial) 40 mg IVPUSH ONETIME ONE Stop: 02/23/21 16:01 Last Admin: 02/23/21 16:00 Dose: 40 mg Documented by: Glucagon (Glucagon,Human Recombinant 1 Mg Vial) 1 mg IM Q15M PRN PRN Reason: Hypoglycemia Heparin Sodium (Porcine) (Heparin Sodium 5,000 Units/Ml Vial) 4,700 units IV ON ETIME ONE Stop: 02/17/21 08:31 Last Admin: 02/17/21 08:34 Dose: 4,700 units Documented by: Heparin Sodium (Porcine) (Heparin Sodium 5,000 Units/Ml Vial) 1,000 units IVPUSH ONETIME ONE Stop: 02/17/21 22:56 Last Admin: 02/17/21 23:14 Dose: 1,000 units Documented by: Heparin Sodium (Porcine) (Heparin Sodium 5,000 Units/Ml Vial) 2,000 units IVPUSH .BOLUS ONE Stop: 02/18/21 09:18 Last Admin: 02/18/21 09:35 Dose: 2,000 units Documented by: Heparin Sodium (Porcine) (Heparin Sodium 5,000 Units/Ml Vial) 2,000 units IVPUSH ONETIME ONE Stop: 02/18/21 22:43 Last Admin: 02/18/21 22:55 Dose: 2,000 units Documented by: Sodium Chloride (Normal Saline) 1,000 mls @ 999 mls/hr IV .BOLUS ONE Stop: 02/16/21 15:00 Last Admin: 02/16/21 17:42 Dose: 999 mls/hr Documented by: Albumin Human (Buminate 5%) 250 mls @ 250 mls/hr IV ASDIRECTED ERIN Last Admin: 02/16/21 15:01 Dose: 250 mls/hr Documented by: Sodium Bicarbonate 100 meq/ (Dextrose/Water) 1,100 mls @ 100 mls/hr IV ONETIME ONE Stop: 02/17/21 02:02 Last Admin: 02/16/21 15:18 Dose: 100 mls/hr Documented by: Insulin Regular in 0.9 % NACL (Myxredlin In Ns 100 Unit/100 Ml) 100 unit in 100 mls @ 7.82 mls/hr IV TITRATE [facility]; Protocol Sodium Bicarbonate 100 meq/ (Dextrose/Water) 1,100 mls @ 999 mls/hr IV ONETIME ONE Stop: 02/16/21 18:27 Last Admin: 02/16/21 22:50 Dose: Not Given Documented by: Sodium Chloride (Normal Saline) 1,000 mls @ 250 mls/hr IV ASDIRECTED ERIN Insulin Regular in 0.9 % NACL (Myxredlin In Ns 100 Unit/100 Ml) 100 unit in 100 mls @ 7.82 mls/hr IV TITRATE ERIN; Protocol Last Titration: 02/17/21 02:36 Dose: 0 units/kg/hr, 0 mls/hr Documented by: Levofloxacin/Dextrose 500 mg/ (Premix) 100 mls @ 100 mls/hr IV Q24H [facility] Last Admin: 02/16/21 20:54 Dose: 100 mls/hr Documented by: Sodium Chloride (Normal Saline) 1,000 mls @ 1,000 mls/hr IV ASDIRECTED [facility] Stop: 02/16/21 19:59 Last Admin: 02/16/21 19:02 Dose: 1,000 mls/hr Documented by: Potassium Chloride/Sodium Chloride (Normal Saline With 40 Meq Kcl) 1,000 mls @ 250 mls/hr IV ASDIRECTED [facility] Last Admin: 02/17/21 01:48 Dose: 250 mls/hr Documented by: Sodium Bicarbonate 100 meq/ (Dextrose/Water) 1,100 mls @ 150 mls/hr IV ONETIME ONE Stop: 02/17/21 10:39 Last Infusion: 02/17/21 07:55 Dose: 50 mls/hr Documented by: Heparin Sodium/Sodium Chloride (Heparin 25,000 Units In 1/2 Ns 500 Ml) 25,000 units in 500 mls @ 18.768 mls/hr IV TITRATE [facility]; Protocol Last Admin: 02/19/21 03:31 Dose: 22 units/kg/hr, 34.408 mls/hr Documented by: Levofloxacin/Dextrose 500 mg/ (Premix) 100 mls @ 100 mls/hr IV Q48H [facility] Last Admin: 02/18/21 17:21 Dose: 100 mls/hr Documented by: Lactated Ringer's (Ringers, Lactated) 1,000 mls @ 125 mls/hr IV ASDIRECTED [facility] Last Admin: 02/19/21 05:45 Dose: 125 mls/hr Documented by: Levofloxacin/Dextrose 750 mg/ (Premix) 150 mls @ 100 mls/hr IV Q24H [facility] Stop: 02/21/21 11:01 Last Admin: 02/21/21 11:15 Dose: 100 mls/hr Documented by: Potassium Chloride 20 meq/ (Premix) 100 mls @ 50 mls/hr IV ONETIME ONE Stop: 02/20/21 09:22 Last Admin: 02/20/21 08:00 Dose: 50 mls/hr Documented by: Calcium Gluconate 1 gm/ Sodium (Chloride) 110 mls @ 110 mls/hr IV ONETIME ONE Stop: 02/20/21 08:29 Last Admin: 02/20/21 08:14 Dose: 110 mls/hr Documented by: Albumin Human 50 gm/ Premix 200 mls @ 100 mls/hr IV NOW ONE Stop: 02/23/21 13:21 Last Admin: 02/23/21 12:12 Dose: 100 mls/hr Documented by: Insulin Glargine (Insulin Glarg,Human.Rec.Analog 100 Unit/Ml) 35 unit SUBCUT ONETIME ONE Stop: 02/17/21 04:13 Last Admin: 02/17/21 04:28 Dose: 35 units Documented by: Insulin Glargine (Insulin Glarg,Human.Rec.Analog 100 Unit/Ml) 20 unit SUBCUT ONETIME ONE Stop: 02/19/21 09:23 Last Admin: 02/19/21 09:57 Dose: 20 units Documented by: Insulin Glargine (Insulin Glarg,Human.Rec.Analog 100 Unit/Ml) 40 unit SUBCUT BEDTIME [facility] Last Admin: 02/19/21 21:47 Dose: 40 units Documented by: Insulin Human Lispro (Insulin Lispro 100 Units/Ml 3 Ml Vial) 5 unit SUBCUT ON ETIME ONE Stop: 02/17/21 04:15 Last Admin: 02/17/21 04:29 Dose: 5 units Documented by: Insulin Human Lispro (Insulin Lispro 100 Units/Ml 3 Ml Vial) 0 unit SUBCUT WITHMEALSANDBED [facility]; Protocol Last Admin: 02/18/21 09:04 Dose: Not Given Documented by: Insulin Human Lispro (Insulin Lispro 100 Units/Ml 3 Ml Vial) 14 unit SUBCUT ONETIME ONE Stop: 02/19/21 12:27 Last Admin: 02/19/21 12:36 Dose: Not Given Documented by: Insulin Human Lispro (Insulin Lispro 100 Units/Ml 3 Ml Vial) 12 unit SUBCUT ONETIME ONE Stop: 02/19/21 12:27 Last Admin: 02/19/21 12:41 Dose: 12 units Documented by: Insulin Human Regular (Insulin Regular, Human 100 Units/Ml 3 Ml Vial) 5 unit IV ONETIME ONE Stop: 02/16/21 14:22 Last Admin: 02/16/21 14:59 Dose: 5 unit Documented by: Insulin Human Regular (Insulin Regular, Human 100 Units/Ml 3 Ml Vial) 10 unit IV STAT STA Stop: 02/16/21 17:11 Last Admin: 02/16/21 17:19 Dose: 10 units Documented by: Insulin Human Regular (Insulin Regular, Human 100 Units/Ml 3 Ml Vial) 10 unit IV ONETIME ONE Stop: 02/16/21 18:13 Last Admin: 02/16/21 18:14 Dose: 10 units Documented by: Lisinopril (Lisinopril 5 Mg Tab) 2.5 mg PO DAILY [facility] Metolazone (Metolazone 2.5 Mg Tab) 5 mg PO ONETIME ONE Stop: 02/27/21 06:01 Last Admin: 02/27/21 06:07 Dose: 5 mg Documented by: Nitroglycerin (Nitroglycerin 0.4 Mg Tab.Sl) 0.4 mg SL ONETIME ONE Stop: 02/18/21 15:41 Last Admin: 02/18/21 15:47 Dose: 0.4 mg Documented by: Nystatin (Nystatin Topical Powder 30 Gm Bottle) 0 gm TOP Q8H [facility] Last Admin: 02/19/21 03:43 Dose: 1 applic Documented by: Potassium Chloride (Potassium Chloride 10 Meq Tab.Er) 40 meq PO ONETIME ONE Stop: 02/17/21 03:20 Last Admin: 02/17/21 07:20 Dose: Not Given Documented by: Potassium Chloride (Potassium Chloride 10 Meq Tab.Er) 40 meq PO ONETIME ONE Stop: 02/17/21 07:52 Last Admin: 02/17/21 08:43 Dose: 40 meq Documented by: Potassium Chloride (Potassium Chloride 10% 20 Meq/15 Ml Soln 15 Ml Ud Cup) 40 meq PO ONETIME ONE Stop: 02/17/21 17:01 Last Admin: 02/17/21 17:41 Dose: 40 meq Documented by: Sodium Bicarbonate (Sodium Bicarbonate 8.4% 50 Meq/50 Ml Syringe) 50 meq IVPUSH ONETIME ONE Stop: 02/16/21 15:04 Last Admin: 02/16/21 15:08 Dose: 50 meq Documented by: Sodium Bicarbonate (Sodium Bicarbonate 8.4% 50 Meq/50 Ml Syringe) 100 meq IVPUSH ONETIME ONE Stop: 02/16/21 17:24 Last Admin: 02/16/21 17:49 Dose: 100 meq Documented by: Zolpidem Tartrate (Zolpidem 5 Mg Tab) 5 mg PO ONETIME ONE Stop: 02/18/21 22:06 Last Admin: 02/18/21 22:17 Dose: 5 mg Documented by: Zolpidem Tartrate (Zolpidem 5 Mg Tab) 5 mg PO ONETIME ONE Stop: 02/20/21 00:18 Last Admin: 02/20/21 00:38 Dose: 5 mg Documented by: - Exam Urinary Catheter Total Time: 2Days 13Hours Physical Findings Comments:: General: Coreen is a 70-year-old woman in no acute distress. Weight today is 209 pounds, stable from yesterday Oropharynx is clear, mucous membranes are moist Neck: Supple, no lymphadenopathy Heart: Regular rate and rhythm, 1 out of 6 to 2 out of 6 systolic murmur best heard over her left apex Lungs: Clear to auscultation throughout - Patient Data Lab Results Last 24 hrs: Laboratory Results - last 24 hr 02/27/21 02/27/21 02/27/21 Range/Units 11:27 16:54 20:45 POC Glucose 220 H 252 H 183 H (70-99) mg/dL 02/28/21 02/28/21 02/28/21 Range/Units 08:03 08:18 08:35 POC Glucose 43 L* 55 L 69 L (70-99) mg/dL Result Diagrams: 02/27/21 05:45 02/27/21 05:45 Sepsis Event Note - Evaluation Sepsis Screening Result: No Definite Risk - Focused Exam Vital Signs: Vital Signs Temp Pulse Pulse Resp BP BP Pulse Ox 02/28/21 09:53 170/83 H 02/28/21 09:52 79 170/83 H 02/28/21 08:00 96.3 F L 79 20 170/83 H 97 02/28/21 04:00 97.7 F 74 22 H 139/76 97 02/28/21 00:00 98.0 F 77 20 138/70 95 - Problem List & Annotations (1) Acute coronary syndrome with high troponin SNOMED Code(s): 713171348, 872976276 Code(s): I24.9 - ACUTE ISCHEMIC HEART DISEASE, UNSPECIFIED Status: Acute Current Visit: Yes (2) Failure to thrive SNOMED Code(s): 29500734 Code(s): CLX0680 - Status: Acute Current Visit: Yes (3) Unable to walk SNOMED Code(s): 734763469 Code(s): R26.2 - DIFFICULTY IN WALKING, NOT ELSEWHERE CLASSIFIED Status: Chronic Current Visit: Yes (4) DKA (diabetic ketoacidosis) SNOMED Code(s): 373661078, 547436945 Code(s): E11.10 - TYPE 2 DIABETES MELLITUS WITH KETOACIDOSIS WITHOUT COMA Status: Chronic Current Visit: Yes Qualifiers: Diabetes mellitus type: type 2 Diabetes mellitus complication detail: without coma Qualified Code(s): E11.10 - Type 2 diabetes mellitus with k etoacidosis without coma (5) Weakness SNOMED Code(s): 81996075 Code(s): R53.1 - WEAKNESS Status: Chronic Current Visit: No (6) CHF exacerbation SNOMED Code(s): 277494393, 17634500908540 Code(s): I50.9 - HEART FAILURE, UNSPECIFIED Status: Chronic Current Visit: Yes Qualifiers: Heart failure type: combined systolic and diastolic Qualified Code(s): I50.43 - Acute on chronic combined systolic (congestive) and diastolic (congestive) heart failure - Problem List Review Problem List Initiated/Reviewed/Updated: Yes - My Orders Last 24 Hours: My Active Orders 02/28/21 18:00 carvediloL [Coreg] 6.25 mg PO BIDMEALS - Assessment Assessment:: Assessment: 1. 70-year-old woman with acute coronary syndrome, resolved 2. 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 Uncontrolled type 2 diabetes mellitus, insulin-dependent -Doing well with 20 of Lantus at night, and sliding scale lispro with meals -Continue lisinopril -Has now had 2 hypoglycemic events first thing in the morning, but her sugars the rest of the day actually are trending on the higher end, so I do not think cutting back on Lantus would be appropriate. She just does not have any liver stores in order to perform gluconeogenesis in the morning before her first meal 4. Acute metabolic acidosis secondary to #1 and #2, resolved 5. Past history of cerebrovascular accident, leaving her with mobility issues and difficulty caring for herself and ADLs -She continues to refuse physical and occupational therapy here. She is bedbound, as she has no mobility at this time -Nursing is watching her skin carefully for signs of breakdown 6. Malnutrition and failure to thrive -Dietary continues to work with her to increase protein intake, to help prevent skin breakdown, and get her mobilized 7. VTE prophylaxis: Is on Lovenox 40 mg SQ daily 8. Discharge planning continues to work on finding fpc placement for her. Coreen has been a significant barrier to this, even though she has been told by multiple sources, including myself and her family, that since she is unsafe at home, there is no possibility of her returning home at this time. - Plan Plan:: 1. Continue sliding scale insulin as well as mealtime insulin and Lantus at 20 units at bedtime 2. Continue post ACS regimen, including Zetia, metoprolol, and lisinopril 3. I will continue to try to convince her to participate with physical and Occupational Therapy, and we have been trying to communicate with Coreen that she will need most likely long-term admission to fpc or assisted living 4. VTE prophylaxis: Lovenox, 40 mg SQ daily 5. We will continue to work with Coreen, hopefully having a family meeting with her and her daughters to discuss future plans 6. We will continue to watch daily weights, if she does not continue to diurese, we may need to repeat the albumin followed by IV Lasix. I may also consider a dose of metolazone. 7. Nursing and nutrition will work carefully together to try to improve her nutrition as well as do skin cares to prevent decubitus breakdown. Since she may be here of quite some duration, we will have to be diligent about this going forward
[2021-02-28] MEDS: Ezetimibe 10 MG Tab PO SCH (22:11)
[2021-02-28] MEDS: Zolpidem 5 MG Tab PO PRN (22:11)
[2021-02-28] MEDS: Insulin Glarg,Human.Rec.Analog 100 Unit/ML SUBCUT SCH (22:11)
[2021-03-01] MEDS ORDERED: Nystatin Topical Powder 30 GM Bottle TOP PRN (00:34)
[2021-03-01] MEDS: Enoxaparin 40 MG/0.4 ML Syringe SUBCUT SCH (09:58)
[2021-03-01] MEDS: Clopidogrel 75 MG Tab PO SCH (09:58)
[2021-03-01] MEDS: Aspirin 81 MG Tab.EC PO SCH (09:58)
[2021-03-01] MEDS: Carvedilol 3.125 MG Tab PO SCH ×2 (09:59→17:43)
[2021-03-01] MEDS: Lisinopril 10 MG Tab PO SCH (09:59)
[2021-03-01] MEDS: Insulin Lispro 100 Units/ML 3 ML Vial SUBCUT SCH ×5 (10:04→20:13)
--- NOTE | 2021-03-01 13:24 | PCM.PN ---
- General Info Date of Service: 03/01/21 Admission Dx/Problem (Free Text): Admission Diagnosis/Problem Admission Diagnosis/Problem Diabetic ketoacidosis with coma Subjective Update: Admitted with unresponsive episode - DKA with coma today feeling well, no further hypoglycemic episodes no associated abdominal lindsay, no n/v has moderate LE edema, has been present for days, no associated sob Functional Status: Reports: Pain Controlled, Tolerating Diet - Review of Systems General: Reports: Weakness. Denies: Fever Pulmonary: Denies: Shortness of Breath Cardiovascular: Reports: Edema. Denies: Chest Pain Genitourinary: Denies: Dysuria Neurological: Denies: Confusion Psychiatric: Denies: Anxiety - Patient Data Vitals - Most Recent: Last Vital Signs Temp 97.0 F 03/01/21 12:00 Pulse 74 03/01/21 12:00 Resp 18 03/01/21 12:00 BP 131/73 03/01/21 12:00 Pulse Ox 98 03/01/21 12:00 Weight - Most Recent: 203 lb 6.4 oz I&O - Last 24 Hours: Intake & Output 02/28/21 03/01/21 03/01/21 22:59 06:59 14:59 Intake Total 240 180 360 Output Total 618 447 Balance -378 -267 360 Lab Results Last 24 Hours: Laboratory Results - last 24 hr 02/28/21 02/28/21 03/01/21 Range/Units 16:21 22:04 07:31 POC Glucose 220 H 294 H 202 H (70-99) mg/dL 03/01/21 Range/Units 10:54 POC Glucose 228 H (70-99) mg/dL Med Orders - Current: Current Medications Acetaminophen (Acetaminophen 500 Mg Tab) 500 mg PO Q4H PRN PRN Reason: Pain/Fever Last Admin: 02/27/21 08:49 Dose: 500 mg Documented by: Aspirin (Aspirin 81 Mg Tab.Ec) 81 mg PO DAILY [facility] Last Admin: 03/01/21 09:58 Dose: 81 mg Documented by: Carvedilol (Carvedilol 3.125 Mg Tab) 6.25 mg PO BIDMEALS [facility] Last Admin: 03/01/21 09:59 Dose: 6.25 mg Documented by: Clopidogrel Bisulfate (Clopidogrel 75 Mg Tab) 75 mg PO DAILY [facility] Last Admin: 03/01/21 09:58 Dose: 75 mg Documented by: Dextrose/Water (50% Dextrose In Water 50 Ml Syringe) 25 ml IVPUSH Q15M PRN PRN Reason: Hypoglycemia Last Admin: 02/28/21 08:35 Dose: 25 ml Documented by: Ezetimibe (Ezetimibe 10 Mg Tab) 10 mg PO BEDTIME [facility] Last Admin: 02/28/21 22:11 Dose: 10 mg Documented by: Enoxaparin Sodium (Enoxaparin 40 Mg/0.4 Ml Syringe) 40 mg SUBCUT DAILY [facility] Last Admin: 03/01/21 09:58 Dose: 40 mg Documented by: Ferrous Sulfate (Ferrous Sulfate 325 Mg Tab) 325 mg PO Q48H [facility] Last Admin: 02/28/21 09:52 Dose: 325 mg Documented by: Glucagon (Glucagon,Human Recombinant 1 Mg Vial) 1 mg IM Q15M PRN PRN Reason: Hypoglycemia Insulin Glargine (Insulin Glarg,Human.Rec.Analog 100 Unit/Ml) 20 unit SUBCUT BEDTIME [facility] Last Admin: 02/28/21 22:11 Dose: 20 units Documented by: Insulin Human Lispro (Insulin Lispro 100 Units/Ml 3 Ml Vial) 0 unit SUBCUT WITHMEALSANDBED [facility]; Protocol Last Admin: 03/01/21 10:04 Dose: 4 units Documented by: Lisinopril (Lisinopril 10 Mg Tab) 10 mg PO DAILY [facility] Last Admin: 03/01/21 09:59 Dose: 10 mg Documented by: Melatonin (Melatonin 3 Mg Tab) 6 mg PO BEDTIME PRN PRN Reason: Sleep Last Admin: 02/22/21 21:29 Dose: 6 mg Documented by: Nystatin (Nystatin Topical Powder 30 Gm Bottle) 1 gm TOP Q8H PRN PRN Reason: Rash Zolpidem Tartrate (Zolpidem 5 Mg Tab) 5 mg PO BEDTIME PRN PRN Reason: Sleep Last Admin: 02/28/21 22:11 Dose: 5 mg Documented by: Discontinued Medications COVID-19 Vaccine mRNA LNP-S (PFR) (PF) (Covid-19 Vacc, Mrna(Pfizer)/Pf 30 Mcg/0.3 Ml Vial) 30 mcg IM .ONCE ONE Stop: 02/25/21 16:21 Last Admin: 02/25/21 17:11 Dose: Not Given Documented by: Carvedilol (Carvedilol 6.25 Mg Tab) 6.25 mg PO ONETIME ONE Stop: 02/19/21 12:28 Last Admin: 02/19/21 12:36 Dose: Not Given Documented by: Carvedilol (Carvedilol 3.125 Mg Tab) 3.125 mg PO BIDMEALS [facility] Last Admin: 02/28/21 09:52 Dose: 3.125 mg Documented by: Clopidogrel Bisulfate (Clopidogrel 75 Mg Tab) 225 mg PO ONETIME STA Stop: 02/17/21 11:11 Last Admin: 02/17/21 11:24 Dose: 225 mg Documented by: Dextrose/Water (50% Dextrose In Water 50 Ml Syringe) 50 ml IVPUSH Q15M PRN PRN Reason: Hypoglycemia Dextrose/Water (50% Dextrose In Water 50 Ml Syringe) 50 ml IVPUSH Q15M PRN PRN Reason: Hypoglycemia Dextrose/Water (50% Dextrose In Water 50 Ml Syringe) 50 ml IVPUSH Q15M PRN PRN Reason: Hypoglycemia Dextrose/Water (50% Dextrose In Water 50 Ml Syringe) Confirm Administered Dose 5 0 ml .ROUTE .STK-MED ONE Stop: 02/20/21 07:41 Last Admin: 02/20/21 08:14 Dose: Not Given Documented by: Dextrose/Water (50% Dextrose In Water 50 Ml Syringe) 50 ml IVPUSH ONETIME ONE Stop: 02/26/21 07:46 Last Admin: 02/26/21 07:45 Dose: 50 ml Documented by: Furosemide (Furosemide 20 Mg/2 Ml Vial) 20 mg IVPUSH ONETIME ONE Stop: 02/16/21 15:51 Last Admin: 02/16/21 15:54 Dose: 20 mg Documented by: Furosemide (Furosemide 40 Mg/4 Ml Vial) 40 mg IVPUSH ONETIME ONE Stop: 02/23/21 16:01 Last Admin: 02/23/21 16:00 Dose: 40 mg Documented by: Glucagon (Glucagon,Human Recombinant 1 Mg Vial) 1 mg IM Q15M PRN PRN Reason: Hypoglycemia Heparin Sodium (Porcine) (Heparin Sodium 5,000 Units/Ml Vial) 4,700 units IV ONETIME ONE Stop: 02/17/21 08:31 Last Admin: 02/17/21 08:34 Dose: 4,700 units Documented by: Heparin Sodium (Porcine) (Heparin Sodium 5,000 Units/Ml Vial) 1,000 units IVPUSH ONETIME ONE Stop: 02/17/21 22:56 Last Admin: 02/17/21 23:14 Dose: 1,000 units Documented by: Heparin Sodium (Porcine) (Heparin Sodium 5,000 Units/Ml Vial) 2,000 units IVPUSH .BOLUS ONE Stop: 02/18/21 09:18 Last Admin: 02/18/21 09:35 Dose: 2,000 units Documented by: Heparin Sodium (Porcine) (Heparin Sodium 5,000 Units/Ml Vial) 2,000 units IVPUSH ONETIME ONE Stop: 02/18/21 22:43 Last Admin: 02/18/21 22:55 Dose: 2,000 units Documented by: Sodium Chloride (Normal Saline) 1,000 mls @ 999 mls/hr IV .BOLUS ONE Stop: 02/16/21 15:00 Last Admin: 02/16/21 17:42 Dose: 999 mls/hr Documented by: Albumin Human (Buminate 5%) 250 mls @ 250 mls/hr IV ASDIRECTED [facility] Last Admin: 02/16/21 15:01 Dose: 250 mls/hr Documented by: Sodium Bicarbonate 100 meq/ (Dextrose/Water) 1,100 mls @ 100 mls/hr IV ONETIME ONE Stop: 02/17/21 02:02 Last Admin: 02/16/21 15:18 Dose: 100 mls/hr Documented by: Insulin Regular in 0.9 % NACL (Myxredlin In Ns 100 Unit/100 Ml) 100 unit in 100 mls @ 7.82 mls/hr IV TITRATE [facility]; Protocol Sodium Bicarbonate 100 meq/ (Dextrose/Water) 1,100 mls @ 999 mls/hr IV ONETIME ONE Stop: 02/16/21 18:27 Last Admin: 02/16/21 22:50 Dose: Not Given Documented by: Sodium Chloride (Normal Saline) 1,000 mls @ 250 mls/hr IV ASDIRECTED ERIN Insulin Regular in 0.9 % NACL (Myxredlin In Ns 100 Unit/100 Ml) 100 unit in 100 mls @ 7.82 mls/hr IV TITRATE [facility]; Protocol Last Titration: 02/17/21 02:36 Dose: 0 units/kg/hr, 0 mls/hr Documented by: Levofloxacin/Dextrose 500 mg/ (Premix) 100 mls @ 100 mls/hr IV Q24H [facility] Last Admin: 02/16/21 20:54 Dose: 100 mls/hr Documented by: Sodium Chloride (Normal Saline) 1,000 mls @ 1,000 mls/hr IV ASDIRECTED [facility] Stop: 02/16/21 19:59 Last Admin: 02/16/21 19:02 Dose: 1,000 mls/hr Documented by: Potassium Chloride/Sodium Chloride (Normal Saline With 40 Meq Kcl) 1,000 mls @ 250 mls/hr IV ASDIRECTED [facility] Last Admin: 02/17/21 01:48 Dose: 250 mls/hr Documented by: Sodium Bicarbonate 100 meq/ (Dextrose/Water) 1,100 mls @ 150 mls/hr IV ONETIME ONE Stop: 02/17/21 10:39 Last Infusion: 02/17/21 07:55 Dose: 50 mls/hr Documented by: Heparin Sodium/Sodium Chloride (Heparin 25,000 Units In 1/2 Ns 500 Ml) 25,000 units in 500 mls @ 18.768 mls/hr IV TITRATE [facility]; Protocol Last Admin: 02/19/21 03:31 Dose: 22 units/kg/hr, 34.408 mls/hr Documented by: Levofloxacin/Dextrose 500 mg/ (Premix) 100 mls @ 100 mls/hr IV Q48H [facility] Last Admin: 02/18/21 17:21 Dose: 100 mls/hr Documented by: Lactated Ringer's (Ringers, Lactated) 1,000 mls @ 125 mls/hr IV ASDIRECTED [facility] Last Admin: 02/19/21 05:45 Dose: 125 mls/hr Documented by: Levofloxacin/Dextrose 750 mg/ (Premix) 150 mls @ 100 mls/hr IV Q24H [facility] Stop: 02/21/21 11:01 Last Admin: 02/21/21 11:15 Dose: 100 mls/hr Documented by: Potassium Chloride 20 meq/ (Premix) 100 mls @ 50 mls/hr IV ONETIME ONE Stop: 02/20/21 09:22 Last Admin: 02/20/21 08:00 Dose: 50 mls/hr Documented by: Calcium Gluconate 1 gm/ Sodium (Chloride) 110 mls @ 110 mls/hr IV ONETIME ONE Stop: 02/20/21 08:29 Last Admin: 02/20/21 08:14 Dose: 110 mls/hr Documented by: Albumin Human 50 gm/ Premix 200 mls @ 100 mls/hr IV NOW ONE Stop: 02/23/21 13:21 Last Admin: 02/23/21 12:12 Dose: 100 mls/hr Documented by: Insulin Glargine (Insulin Glarg,Human.Rec.Analog 100 Unit/Ml) 35 unit SUBCUT ONETIME ONE Stop: 02/17/21 04:13 Last Admin: 02/17/21 04:28 Dose: 35 units Documented by: Insulin Glargine (Insulin Glarg,Human.Rec.Analog 100 Unit/Ml) 20 unit SUBCUT ONETIME ONE Stop: 02/19/21 09:23 Last Admin: 02/19/21 09:57 Dose: 20 units Documented by: Insulin Glargine (Insulin Glarg,Human.Rec.Analog 100 Unit/Ml) 40 unit SUBCUT BEDTIME [facility] Last Admin: 02/19/21 21:47 Dose: 40 units Documented by: Insulin Human Lispro (Insulin Lispro 100 Units/Ml 3 Ml Vial) 5 unit SUBCUT ONETIME ONE Stop: 02/17/21 04:15 Last Admin: 02/17/21 04:29 Dose: 5 units Documented by: Insulin Human Lispro (Insulin Lispro 100 Units/Ml 3 Ml Vial) 0 unit SUBCUT WITHMEALSANDBED [facility]; Protocol Last Admin: 02/18/21 09:04 Dose: Not Given Documented by: Insulin Human Lispro (Insulin Lispro 100 Units/Ml 3 Ml Vial) 14 unit SUBCUT ONETIME ONE Stop: 02/19/21 12:27 Last Admin: 02/19/21 12:36 Dose: Not Given Documented by: Insulin Human Lispro (Insulin Lispro 100 Units/Ml 3 Ml Vial) 12 unit SUBCUT ONETIME ONE Stop: 02/19/21 12:27 Last Admin: 02/19/21 12:41 Dose: 12 units Documented by: Insulin Human Regular (Insulin Regular, Human 100 Units/Ml 3 Ml Vial) 5 unit IV ONETIME ONE Stop: 02/16/21 14:22 Last Admin: 02/16/21 14:59 Dose: 5 unit Documented by: Insulin Human Regular (Insulin Regular, Human 100 Units/Ml 3 Ml Vial) 10 unit IV STAT STA Stop: 02/16/21 17:11 Last Admin: 02/16/21 17:19 Dose: 10 units Documented by: Insulin Human Regular (Insulin Regular, Human 100 Units/Ml 3 Ml Vial) 10 unit IV ONETIME ONE Stop: 02/16/21 18:13 Last Admin: 02/16/21 18:14 Dose: 10 units Documented by: Lisinopril (Lisinopril 5 Mg Tab) 2.5 mg PO DAILY [facility] Metolazone (Metolazone 2.5 Mg Tab) 5 mg PO ONETIME ONE Stop: 02/27/21 06:01 Last Admin: 02/27/21 06:07 Dose: 5 mg Documented by: Nitroglycerin (Nitroglycerin 0.4 Mg Tab.Sl) 0.4 mg SL ONETIME ONE Stop: 02/18/21 15:41 Last Admin: 02/18/21 15:47 Dose: 0.4 mg Documented by: Nystatin (Nystatin Topical Powder 30 Gm Bottle) 0 gm TOP Q8H [facility] Last Admin: 02/19/21 03:43 Dose: 1 applic Documented by: Nystatin (Nystatin Topical Powder 30 Gm Bottle) 0 gm TOP Q8HR [facility] Last Admin: 02/28/21 22:12 Dose: 1 applic Documented by: Potassium Chloride (Potassium Chloride 10 Meq Tab.Er) 40 meq PO ONETIME ONE Stop: 02/17/21 03:20 Last Admin: 02/17/21 07:20 Dose: Not Given Documented by: Potassium Chloride (Potassium Chloride 10 Meq Tab.Er) 40 meq PO ONETIME ONE Stop: 02/17/21 07:52 Last Admin: 02/17/21 08:43 Dose: 40 meq Documented by: Potassium Chloride (Potassium Chloride 10% 20 Meq/15 Ml Soln 15 Ml Ud Cup) 40 meq PO ONETIME ONE Stop: 02/17/21 17:01 Last Admin: 02/17/21 17:41 Dose: 40 meq Documented by: Sodium Bicarbonate (Sodium Bicarbonate 8.4% 50 Meq/50 Ml Syringe) 50 meq IVPUSH ONETIME ONE Stop: 02/16/21 15:04 Last Admin: 02/16/21 15:08 Dose: 50 meq Documented by: Sodium Bicarbonate (Sodium Bicarbonate 8.4% 50 Meq/50 Ml Syringe) 100 meq IVPUSH ONETIME ONE Stop: 02/16/21 17:24 Last Admin: 02/16/21 17:49 Dose: 100 meq Documented by: Zolpidem Tartrate (Zolpidem 5 Mg Tab) 5 mg PO ONETIME ONE Stop: 02/18/21 22:06 Last Admin: 02/18/21 22:17 Dose: 5 mg Documented by: Zolpidem Tartrate (Zolpidem 5 Mg Tab) 5 mg PO ONETIME ONE Stop: 02/20/21 00:18 Last Admin: 02/20/21 00:38 Dose: 5 mg Documented by: - Exam Urinary Catheter Total Time: 2Days 13Hours General: Alert, Oriented Neck: Supple Lungs: Clear to Auscultation Cardiovascular: Regular Rate, Regular Rhythm GI/Abdominal Exam: Normal Bowel Sounds, Soft, Non-Tender Extremities: Pedal Edema Neurological: No New Focal Deficit Psy/Mental Status: Alert, Normal Affect, Normal Mood - Patient Data Lab Results Last 24 hrs: Laboratory Results - last 24 hr 02/28/21 02/28/21 03/01/21 Range/Units 16:21 22:04 07:31 POC Glucose 220 H 294 H 202 H (70-99) mg/dL 03/01/21 Range/Units 10:54 POC Glucose 228 H (70-99) mg/dL Result Diagrams: 02/27/21 05:45 02/27/21 05:45 Sepsis Event Note - Evaluation Sepsis Screening Result: No Definite Risk - Focused Exam Vital Signs: Vital Signs Temp Pulse Pulse Resp BP BP Pulse Ox 03/01/21 12:00 97.0 F 74 18 131/73 98 03/01/21 09:59 77 112/51 L 03/01/21 07:46 98.7 F 77 18 112/51 L 94 L 03/01/21 04:00 97.9 F 75 14 130/64 94 L - Problem List & Annotations (1) Acute coronary syndrome with high troponin SNOMED Code(s): 351875498, 269250860 Code(s): I24.9 - ACUTE ISCHEMIC HEART DISEASE, UNSPECIFIED Status: Acute Current Visit: Yes (2) Congestive heart failure SNOMED Code(s): 11570673 Code(s): I50.9 - HEART FAILURE, UNSPECIFIED Status: Acute Current Visit: Yes Qualifiers: Heart failure type: unspecified Heart failure chronicity: acute on chronic Qualified Code(s): I50.9 - Heart failure, unspecified (3) DKA (diabetic ketoacidosis) SNOMED Code(s): 735758982, 607693434 Code(s): E11.10 - TYPE 2 DIABETES MELLITUS WITH KETOACIDOSIS WITHOUT COMA Status: Chronic Current Visit: Yes Qualifiers: Diabetes mellitus type: type 2 Diabetes mellitus complication detail: without coma Qualified Code(s): E11.10 - Type 2 diabetes mellitus with ketoacidosis without coma (4) Metabolic acidosis due to diabetes mellitus SNOMED Code(s): 507859341 Code(s): E11.69 - TYPE 2 DIABETES MELLITUS WITH OTHER SPECIFIED COMPLICATION; E87.2 - ACIDOSIS Status: Acute Current Visit: No - Problem List Review Problem List Initiated/Reviewed/Updated: Yes - Assessment Assessment:: Assessment: presented with unresponsiveness, noted to have severe DKA presented with unresponsiveness, noted to have severe DKA - acute coronary syndrome, resolved treat CAD with asa, Plavix cont coreg, zetia, lisinopril - Acute on chronic congestive heart failure, unknown type, most likely systolic predominant Will need echo after discharge to further characterize Still has significant LE edema Treat with coreg, Start Lasix, Follow for need for K supplement Follow elytes and replace them as needed - DKA with unresponsiveness Resolved Check elytes in am - Hypernatremia Rechek in AM - Uncontrolled type 2 diabetes mellitus, insulin-dependent -treat with Lantus at night, and sliding scale lispro with meals -Continue lisinopril - follow for and treat hypoglycemia - Past history of cerebrovascular accident Weakness Cont pt/ot as tolerated She continues to refuse physical and occupational therapy here. She is bedbound, as she has no mobility at this time Nursing is watching her skin carefully for signs of breakdown - VTE prophylaxis: Is on Lovenox 40 mg SQ day - Discharge planning continues to work on finding snf placement for her d/w dr. Diop
[2021-03-01] MEDS: Furosemide 20 MG Tab PO SCH (13:45)
[2021-03-01] MEDS ORDERED: Potassium Chloride 10 MEQ Tab.ER PO SCH (13:45)
[2021-03-01] MEDS: Insulin Glarg,Human.Rec.Analog 100 Unit/ML SUBCUT SCH (19:59)
[2021-03-01] MEDS: Ezetimibe 10 MG Tab PO SCH (21:52)
[2021-03-01] MEDS: Zolpidem 5 MG Tab PO PRN (21:53)
[2021-03-02 07:21] LABS: ANION GAP 10.8 mEq/L (7-13); CHLORIDE,CL 108 mmol/L (98-107); SODIUM,NA 143 mmol/L (136-145)
--- NOTE | 2021-03-02 10:40 | PCM.PN ---
- General Info Date of Service: 03/02/21 Admission Dx/Problem (Free Text): Admission Diagnosis/Problem Admission Diagnosis/Problem Diabetic ketoacidosis with coma Subjective Update: Admitted with unresponsive episode - DKA with coma today feeling well, no further hypoglycemic episodes no associated abdominal lindsay, no n/v has moderate LE edema, has been present for days, no associated sob needed total lift to get out of bed in good mood, accepting to go to [facility] Functional Status: Reports: Pain Controlled, Tolerating Diet. Denies: Ambul ating - Review of Systems General: Reports: Weakness Pulmonary: Denies: Shortness of Breath Cardiovascular: Denies: Chest Pain Gastrointestinal: Denies: Abdominal Pain Neurological: Denies: Confusion - Patient Data Vitals - Most Recent: Last Vital Signs Temp 96.5 F L 03/02/21 08:00 Pulse 76 03/02/21 08:00 Resp 20 03/02/21 08:00 BP 147/69 H 03/02/21 08:00 Pulse Ox 95 03/02/21 08:00 Weight - Most Recent: 192 lb 11.2 oz I&O - Last 24 Hours: Intake & Output 03/01/21 03/02/21 03/02/21 22:59 06:59 14:59 Intake Total 480 Output Total 861 338 Balance -381 -338 Lab Results Last 24 Hours: Laboratory Results - last 24 hr 03/01/21 03/01/21 03/01/21 Range/Units 07:31 10:54 17:00 WBC (5.0-10.0) 10^3/uL RBC (4.2-5.4) 10^6/uL Hgb (12.0-16.0) g/dL Hct (37.0-47.0) % MCV (80-100) fL MCH (27.0-34.0) pg MCHC (33.0-35.0) g/dL Plt Count (150-450) 10^3/uL Neut % (Auto) (42.2-75.2) % Lymph % (Auto) (20.5-50.1) % [place] % (Auto) (2-8) % Eos % (Auto) (1.0-3.0) % Baso % (Auto) (0.0-1.0) % Sodium (136-145) mmol/L Potassium (3.5-5.1) mmol/L Chloride (98-107) mmol/L Carbon Dioxide (21-32) mmol/L Anion Gap (7-13) mEq/L BUN (7-18) mg/dL Creatinine (0.55-1.02) mg/dL Est Cr Clr Drug Dosing mL/min Estimated GFR (MDRD) Glucose (70-99) mg/dL POC Glucose 202 H 228 H 134 H (70-99) mg/dL Calcium (8.5-10.1) mg/dL 03/01/21 03/02/21 03/02/21 Range/Units 19:45 05:55 05:55 WBC 7.0 (5.0-10.0) 10^3/uL RBC 4.49 (4.2-5.4) 10^6/uL Hgb 10.2 L (12.0-16.0) g/dL Hct 32.1 L (37.0-47.0) % MCV 71.5 L (80-100) fL MCH 22.7 L (27.0-34.0) pg MCHC 31.8 L (33.0-35.0) g/dL Plt Count 274 (150-450) 10^3/uL Neut % (Auto) 63.0 (42.2-75.2) % Lymph % (Auto) 25.3 (20.5-50.1) % [place] % (Auto) 11.7 H (2-8) % Eos % (Auto) 0.0 L (1.0-3.0) % Baso % (Auto) 0.0 (0.0-1.0) % Sodium 143 (136-145) mmol/L Potassium 3.8 (3.5-5.1) mmol/L Chloride 108 H (98-107) mmol/L Carbon Dioxide 28 (21-32) mmol/L Anion Gap 10.8 (7-13) mEq/L BUN 13 (7-18) mg/dL Creatinine 0.62 (0.55-1.02) mg/dL Est Cr Clr Drug Dosing 83.28 mL/min Estimated GFR (MDRD) > 60 Glucose 112 H (70-99) mg/dL POC Glucose 214 H (70-99) mg/dL Calcium 8.4 L (8.5-10.1) mg/dL 03/02/21 Range/Units 07:48 WBC (5.0-10.0) 10^3/uL RBC (4.2-5.4) 10^6/uL Hgb (12.0-16.0) g/dL Hct (37.0-47.0) % MCV (80-100) fL MCH (27.0-34.0) pg MCHC (33.0-35.0) g/dL Plt Count (150-450) 10^3/uL Neut % (Auto) (42.2-75.2) % Lymph % (Auto) (20.5-50.1) % [place] % (Auto) (2-8) % Eos % (Auto) (1.0-3.0) % Baso % (Auto) (0.0-1.0) % Sodium (136-145) mmol/L Potassium (3.5-5.1) mmol/L Chloride (98-107) mmol/L Carbon Dioxide (21-32) mmol/L Anion Gap (7-13) mEq/L BUN (7-18) mg/dL Creatinine (0.55-1.02) mg/dL Est Cr Clr Drug Dosing mL/min Estimated GFR (MDRD) Glucose (70-99) mg/dL POC Glucose 113 H (70-99) mg/dL Calcium (8.5-10.1) mg/dL Med Orders - Current: Current Medications Acetaminophen (Acetaminophen 500 Mg Tab) 500 mg PO Q4H PRN PRN Reason: Pain/Fever Last Admin: 02/27/21 08:49 Dose: 500 mg Documented by: Aspirin (Aspirin 81 Mg Tab.Ec) 81 mg PO DAILY [facility] Last Admin: 03/01/21 09:58 Dose: 81 mg Documented by: Carvedilol (Carvedilol 3.125 Mg Tab) 6.25 mg PO BIDMEALS [facility] Last Admin: 03/01/21 17:43 Dose: 6.25 mg Documented by: Clopidogrel Bisulfate (Clopidogrel 75 Mg Tab) 75 mg PO DAILY [facility] Last Admin: 03/01/21 09:58 Dose: 75 mg Documented by: Dextrose/Water (50% Dextrose In Water 50 Ml Syringe) 25 ml IVPUSH Q15M PRN PRN Reason: Hypoglycemia Last Admin: 02/28/21 08:35 Dose: 25 ml Documented by: Ezetimibe (Ezetimibe 10 Mg Tab) 10 mg PO BEDTIME [facility] Last Admin: 03/01/21 21:52 Dose: 10 mg Documented by: Enoxaparin Sodium (Enoxaparin 40 Mg/0.4 Ml Syringe) 40 mg SUBCUT DAILY [facility] Last Admin: 03/01/21 09:58 Dose: 40 mg Documented by: Ferrous Sulfate (Ferrous Sulfate 325 Mg Tab) 325 mg PO Q48H [facility] Last Admin: 02/28/21 09:52 Dose: 325 mg Documented by: Furosemide (Furosemide 20 Mg Tab) 20 mg PO DAILY [facility] Last Admin: 03/01/21 13:45 Dose: 20 mg Documented by: Glucagon (Glucagon,Human Recombinant 1 Mg Vial) 1 mg IM Q15M PRN PRN Reason: Hypoglycemia Insulin Glargine (Insulin Glarg,Human.Rec.Analog 100 Unit/Ml) 20 unit SUBCUT BEDTIME [facility] Last Admin: 03/01/21 19:59 Dose: 20 units Documented by: Insulin Human Lispro (Insulin Lispro 100 Units/Ml 3 Ml Vial) 0 unit SUBCUT WITHMEALSANDBED [facility]; Protocol Last Admin: 03/01/21 20:13 Dose: Not Given Documented by: Lisinopril (Lisinopril 10 Mg Tab) 10 mg PO DAILY [facility] Last Admin: 03/01/21 09:59 Dose: 10 mg Documented by: Melatonin (Melatonin 3 Mg Tab) 6 mg PO BEDTIME PRN PRN Reason: Sleep Last Admin: 02/22/21 21:29 Dose: 6 mg Documented by: Nystatin (Nystatin Topical Powder 30 Gm Bottle) 1 gm TOP Q8H PRN PRN Reason: Rash Zolpidem Tartrate (Zolpidem 5 Mg Tab) 5 mg PO BEDTIME PRN PRN Reason: Sleep Last Admin: 03/01/21 21:53 Dose: 5 mg Documented by: Discontinued Medications COVID-19 Vaccine mRNA LNP-S (PFR) (PF) (Covid-19 Vacc, Mrna(Pfizer)/Pf 30 Mcg/0.3 Ml Vial) 30 mcg IM .ONCE ONE Stop: 02/25/21 16:21 Last Admin: 02/25/21 17:11 Dose: Not Given Documented by: Carvedilol (Carvedilol 6.25 Mg Tab) 6.25 mg PO ONETIME ONE Stop: 02/19/21 12:28 Last Admin: 02/19/21 12:36 Dose: Not Given Documented by: Carvedilol (Carvedilol 3.125 Mg Tab) 3.125 mg PO BIDMEALS [facility] Last Admin: 02/28/21 09:52 Dose: 3.125 mg Documented by: Clopidogrel Bisulfate (Clopidogrel 75 Mg Tab) 225 mg PO ONETIME STA Stop: 02/17/21 11:11 Last Admin: 02/17/21 11:24 Dose: 225 mg Documented by: Dextrose/Water (50% Dextrose In Water 50 Ml Syringe) 50 ml IVPUSH Q15M PRN PRN Reason: Hypoglycemia Dextrose/Water (50% Dextrose In Water 50 Ml Syringe) 50 ml IVPUSH Q15M PRN PRN Reason: Hypoglycemia Dextrose/Water (50% Dextrose In Water 50 Ml Syringe) 50 ml IVPUSH Q15M PRN PRN Reason: Hypoglycemia Dextrose/Water (50% Dextrose In Water 50 Ml Syringe) Confirm Administered Dose 50 ml .ROUTE .STK-MED ONE Stop: 02/20/21 07:41 Last Admin: 02/20/21 08:14 Dose: Not Given Documented by: Dextrose/Water (50% Dextrose In Water 50 Ml Syringe) 50 ml IVPUSH ONETIME ONE Stop: 02/26/21 07:46 Last Admin: 02/26/21 07:45 Dose: 50 ml Documented by: Furosemide (Furosemide 20 Mg/2 Ml Vial) 20 mg IVPUSH ONETIME ONE Stop: 02/16/21 15:51 Last Admin: 02/16/21 15:54 Dose: 20 mg Documented by: Furosemide (Furosemide 40 Mg/4 Ml Vial) 40 mg IVPUSH ONETIME ONE Stop: 02/23/21 16:01 Last Admin: 02/23/21 16:00 Dose: 40 mg Documented by: Glucagon (Glucagon,Human Recombinant 1 Mg Vial) 1 mg IM Q15M PRN PRN Reason: Hypoglycemia Heparin Sodium (Porcine) (Heparin Sodium 5,000 Units/Ml Vial) 4,700 units IV ONETIME ONE Stop: 02/17/21 08:31 Last Admin: 02/17/21 08:34 Dose: 4,700 units Documented by: Heparin Sodium (Porcine) (Heparin Sodium 5,000 Units/Ml Vial) 1,000 units IVPUSH ONETIME ONE Stop: 02/17/21 22:56 Last Admin: 02/17/21 23:14 Dose: 1,000 units Documented by: Heparin Sodium (Porcine) (Heparin Sodium 5,000 Units/Ml Vial) 2,000 units IVPUSH .BOLUS ONE Stop: 02/18/21 09:18 Last Admin: 02/18/21 09:35 Dose: 2,000 units Documented by: Heparin Sodium (Porcine) (Heparin Sodium 5,000 Units/Ml Vial) 2,000 units IVPUSH ONETIME ONE Stop: 02/18/21 22:43 Last Admin: 02/18/21 22:55 Dose: 2,000 units Documented by: Sodium Chloride (Normal Saline) 1,000 mls @ 999 mls/hr IV .BOLUS ONE Stop: 02/16/21 15:00 Last Admin: 02/16/21 17:42 Dose: 999 mls/hr Documented by: Albumin Human (Buminate 5%) 250 mls @ 250 mls/hr IV ASDIRECTED [facility] Last Admin: 02/16/21 15:01 Dose: 250 mls/hr Documented by: Sodium Bicarbonate 100 meq/ (Dextrose/Water) 1,100 mls @ 100 mls/hr IV ONETIME ONE Stop: 02/17/21 02:02 Last Admin: 02/16/21 15:18 Dose: 100 mls/hr Documented by: Insulin Regular in 0.9 % NACL (Myxredlin In Ns 100 Unit/100 Ml) 100 unit in 100 mls @ 7.82 mls/hr IV TITRATE [facility]; Protocol Sodium Bicarbonate 100 meq/ (Dextrose/Water) 1,100 mls @ 999 mls/hr IV ONETIME ONE Stop: 02/16/21 18:27 Last Admin: 02/16/21 22:50 Dose: Not Given Documented by: Sodium Chloride (Normal Saline) 1,000 mls @ 250 mls/hr IV ASDIRECTED ERIN Insulin Regular in 0.9 % NACL (Myxredlin In Ns 100 Unit/100 Ml) 100 unit in 100 mls @ 7.82 mls/hr IV TITRATE [facility]; Protocol Last Titration: 02/17/21 02:36 Dose: 0 units/kg/hr, 0 mls/hr Documented by: Levofloxacin/Dextrose 500 mg/ (Premix) 100 mls @ 100 mls/hr IV Q24H [facility] Last Admin: 02/16/21 20:54 Dose: 100 mls/hr Documented by: Sodium Chloride (Normal Saline) 1,000 mls @ 1,000 mls/hr IV ASDIRECTED [facility] Stop: 02/16/21 19:59 Last Admin: 02/16/21 19:02 Dose: 1,000 mls/hr Documented by: Potassium Chloride/Sodium Chloride (Normal Saline With 40 Meq Kcl) 1,000 mls @ 250 mls/hr IV ASDIRECTED [facility] Last Admin: 02/17/21 01:48 Dose: 250 mls/hr Documented by: Sodium Bicarbonate 100 meq/ (Dextrose/Water) 1,100 mls @ 150 mls/hr IV ONETIME ONE Stop: 02/17/21 10:39 Last Infusion: 02/17/21 07:55 Dose: 50 mls/hr Documented by: Heparin Sodium/Sodium Chloride (Heparin 25,000 Units In 1/2 Ns 500 Ml) 25,000 units in 500 mls @ 18.768 mls/hr IV TITRATE [facility]; Protocol Last Admin: 02/19/21 03:31 Dose: 22 units/kg/hr, 34.408 mls/hr Documented by: Levofloxacin/Dextrose 500 mg/ (Premix) 100 mls @ 100 mls/hr IV Q48H [facility] Last Admin: 02/18/21 17:21 Dose: 100 mls/hr Documented by: Lactated Ringer's (Ringers, Lactated) 1,000 mls @ 125 mls/hr IV ASDIRECTED [facility] Last Admin: 02/19/21 05:45 Dose: 125 mls/hr Documented by: Levofloxacin/Dextrose 750 mg/ (Premix) 150 mls @ 100 mls/hr IV Q24H [facility] Stop: 02/21/21 11:01 Last Admin: 02/21/21 11:15 Dose: 100 mls/hr Documented by: Potassium Chloride 20 meq/ (Premix) 100 mls @ 50 mls/hr IV ONETIME ONE Stop: 02/20/21 09:22 Last Admin: 02/20/21 08:00 Dose: 50 mls/hr Documented by: Calcium Gluconate 1 gm/ Sodium (Chloride) 110 mls @ 110 mls/hr IV ONETIME ONE Stop: 02/20/21 08:29 Last Admin: 02/20/21 08:14 Dose: 110 mls/hr Documented by: Albumin Human 50 gm/ Premix 200 mls @ 100 mls/hr IV NOW ONE Stop: 02/23/21 13:21 Last Admin: 02/23/21 12:12 Dose: 100 mls/hr Documented by: Insulin Glargine (Insulin Glarg,Human.Rec.Analog 100 Unit/Ml) 35 unit SUBCUT ONETIME ONE Stop: 02/17/21 04:13 Last Admin: 02/17/21 04:28 Dose: 35 units Documented by: Insulin Glargine (Insulin Glarg,Human.Rec.Analog 100 Unit/Ml) 20 unit SUBCUT ONETIME ONE Stop: 02/19/21 09:23 Last Admin: 02/19/21 09:57 Dose: 20 units Documented by: Insulin Glargine (Insulin Glarg,Human.Rec.Analog 100 Unit/Ml) 40 unit SUBCUT BEDTIME [facility] Last Admin: 02/19/21 21:47 Dose: 40 units Documented by: Insulin Human Lispro (Insulin Lispro 100 Units/Ml 3 Ml Vial) 5 unit SUBCUT ONETIME ONE Stop: 02/17/21 04:15 Last Admin: 02/17/21 04:29 Dose: 5 units Documented by: Insulin Human Lispro (Insulin Lispro 100 Units/Ml 3 Ml Vial) 0 unit SUBCUT WITHMEALSANDBED [facility]; Protocol Last Admin: 02/18/21 09:04 Dose: Not Given Documented by: Insulin Human Lispro (Insulin Lispro 100 Units/Ml 3 Ml Vial) 14 unit SUBCUT ONETIME ONE Stop: 02/19/21 12:27 Last Admin: 02/19/21 12:36 Dose: Not Given Documented by: Insulin Human Lispro (Insulin Lispro 100 Units/Ml 3 Ml Vial) 12 unit SUBCUT ONETIME ONE Stop: 02/19/21 12:27 Last Admin: 02/19/21 12:41 Dose: 12 units Documented by: Insulin Human Regular (Insulin Regular, Human 100 Units/Ml 3 Ml Vial) 5 unit IV ONETIME ONE Stop: 02/16/21 14:22 Last Admin: 02/16/21 14:59 Dose: 5 unit Documented by: Insulin Human Regular (Insulin Regular, Human 100 Units/Ml 3 Ml Vial) 10 unit IV STAT STA Stop: 02/16/21 17:11 Last Admin: 02/16/21 17:19 Dose: 10 units Documented by: Insulin Human Regular (Insulin Regular, Human 100 Units/Ml 3 Ml Vial) 10 unit IV ONETIME ONE Stop: 02/16/21 18:13 Last Admin: 02/16/21 18:14 Dose: 10 units Documented by: Lisinopril (Lisinopril 5 Mg Tab) 2.5 mg PO DAILY [facility] Metolazone (Metolazone 2.5 Mg Tab) 5 mg PO ONETIME ONE Stop: 02/27/21 06:01 Last Admin: 02/27/21 06:07 Dose: 5 mg Documented by: Nitroglycerin (Nitroglycerin 0.4 Mg Tab.Sl) 0.4 mg SL ONETIME ONE Stop: 02/18/21 15:41 Last Admin: 02/18/21 15:47 Dose: 0.4 mg Documented by: Nystatin (Nystatin Topical Powder 30 Gm Bottle) 0 gm TOP Q8H [facility] Last Admin: 02/19/21 03:43 Dose: 1 applic Documented by: Nystatin (Nystatin Topical Powder 30 Gm Bottle) 0 gm TOP Q8HR [facility] Last Admin: 02/28/21 22:12 Dose: 1 applic Documented by: Potassium Chloride (Potassium Chloride 10 Meq Tab.Er) 40 meq PO ONETIME ONE Stop: 02/17/21 03:20 Last Admin: 02/17/21 07:20 Dose: Not Given Documented by: Potassium Chloride (Potassium Chloride 10 Meq Tab.Er) 40 meq PO ONETIME ONE Stop: 02/17/21 07:52 Last Admin: 02/17/21 08:43 Dose: 40 meq Documented by: Potassium Chloride (Potassium Chloride 10% 20 Meq/15 Ml Soln 15 Ml Ud Cup) 40 meq PO ONETIME ONE Stop: 02/17/21 17:01 Last Admin: 02/17/21 17:41 Dose: 40 meq Documented by: Potassium Chloride (Potassium Chloride 10 Meq Tab.Er) 20 meq PO DAILY [facility] Sodium Bicarbonate (Sodium Bicarbonate 8.4% 50 Meq/50 Ml Syringe) 50 meq IVPUSH ONETIME ONE Stop: 02/16/21 15:04 Last Admin: 02/16/21 15:08 Dose: 50 meq Documented by: Sodium Bicarbonate (Sodium Bicarbonate 8.4% 50 Meq/50 Ml Syringe) 100 meq IVPUSH ONETIME ONE Stop: 02/16/21 17:24 Last Admin: 02/16/21 17:49 Dose: 100 meq Documented by: Zolpidem Tartrate (Zolpidem 5 Mg Tab) 5 mg PO ONETIME ONE Stop: 02/18/21 22:06 Last Admin: 02/18/21 22:17 Dose: 5 mg Documented by: Zolpidem Tartrate (Zolpidem 5 Mg Tab) 5 mg PO ONETIME ONE Stop: 02/20/21 00:18 Last Admin: 02/20/21 00:38 Dose: 5 mg Documented by: - Exam Urinary Catheter Total Time: 2Days 13Hours General: Alert, Oriented Neck: Supple Lungs: Normal Respiratory Effort, Decreased Breath Sounds Cardiovascular: Regular Rate, Regular Rhythm Extremities: Pedal Edema Neurological: No New Focal Deficit Psy/Mental Status: Alert, Normal Affect, Normal Mood - Patient Data Lab Results Last 24 hrs: Laboratory Results - last 24 hr 03/01/21 03/01/21 03/01/21 Range/Units 07:31 10:54 17:00 WBC (5.0-10.0) 10^3/uL RBC (4.2-5.4) 10^6/uL Hgb (12.0-16.0) g/dL Hct (37.0-47.0) % MCV (80-100) fL MCH (27.0-34.0) pg MCHC (33.0-35.0) g/dL Plt Count (150-450) 10^3/uL Neut % (Auto) (42.2-75.2) % Lymph % (Auto) (20.5-50.1) % [place] % (Auto) (2-8) % Eos % (Auto) (1.0-3.0) % Baso % (Auto) (0.0-1.0) % Sodium (136-145) mmol/L Potassium (3.5-5.1) mmol/L Chloride (98-107) mmol/L Carbon Dioxide (21-32) mmol/L Anion Gap (7-13) mEq/L BUN (7-18) mg/dL Creatinine (0.55-1.02) mg/dL Est Cr Clr Drug Dosing mL/min Estimated GFR (MDRD) Glucose (70-99) mg/dL POC Glucose 202 H 228 H 134 H (70-99) mg/dL Calcium (8.5-10.1) mg/dL 03/01/21 03/02/21 03/02/21 Range/Units 19:45 05:55 05:55 WBC 7.0 (5.0-10.0) 10^3/uL RBC 4.49 (4.2-5.4) 10^6/uL Hgb 10.2 L (12.0-16.0) g/dL Hct 32.1 L (37.0-47.0) % MCV 71.5 L (80-100) fL MCH 22.7 L (27.0-34.0) pg MCHC 31.8 L (33.0-35.0) g/dL Plt Count 274 (150-450) 10^3/uL Neut % (Auto) 63.0 (42.2-75.2) % Lymph % (Auto) 25.3 (20.5-50.1) % [place] % (Auto) 11.7 H (2-8) % Eos % (Auto) 0.0 L (1.0-3.0) % Baso % (Auto) 0.0 (0.0-1.0) % Sodium 143 (136-145) mmol/L Potassium 3.8 (3.5-5.1) mmol/L Chloride 108 H (98-107) mmol/L Carbon Dioxide 28 (21-32) mmol/L Anion Gap 10.8 (7-13) mEq/L BUN 13 (7-18) mg/dL Creatinine 0.62 (0.55-1.02) mg/dL Est Cr Clr Drug Dosing 83.28 mL/min Estimated GFR (MDRD) > 60 Glucose 112 H (70-99) mg/dL POC Glucose 214 H (70-99) mg/dL Calcium 8.4 L (8.5-10.1) mg/dL 03/02/21 Range/Units 07:48 WBC (5.0-10.0) 10^3/uL RBC (4.2-5.4) 10^6/uL Hgb (12.0-16.0) g/dL Hct (37.0-47.0) % MCV (80-100) fL MCH (27.0-34.0) pg MCHC (33.0-35.0) g/dL Plt Count (150-450) 10^3/uL Neut % (Auto) (42.2-75.2) % Lymph % (Auto) (20.5-50.1) % [place] % (Auto) (2-8) % Eos % (Auto) (1.0-3.0) % Baso % (Auto) (0.0-1.0) % Sodium (136-145) mmol/L Potassium (3.5-5.1) mmol/L Chloride (98-107) mmol/L Carbon Dioxide (21-32) mmol/L Anion Gap (7-13) mEq/L BUN (7-18) mg/dL Creatinine (0.55-1.02) mg/dL Est Cr Clr Drug Dosing mL/min Estimated GFR (MDRD) Glucose (70-99) mg/dL POC Glucose 113 H (70-99) mg/dL Calcium (8.5-10.1) mg/dL Result Diagrams: 03/02/21 05:55 03/02/21 05:55 Sepsis Event Note - Evaluation Sepsis Screening Result: No Definite Risk - Focused Exam Vital Signs: Vital Signs Temp Pulse Resp BP Pulse Ox 03/02/21 08:00 96.5 F L 76 20 147/69 H 95 03/02/21 03:37 98.4 F 76 18 146/76 H 94 L 03/02/21 00:00 98.0 F 79 18 150/74 H 94 L - Problem List & Annotations (1) Acute coronary syndrome with high troponin SNOMED Code(s): 101873265, 569895747 Code(s): I24.9 - ACUTE ISCHEMIC HEART DISEASE, UNSPECIFIED Status: Acute Current Visit: Yes (2) Congestive heart failure SNOMED Code(s): 86476641 Code(s): I50.9 - HEART FAILURE, UNSPECIFIED Status: Acute Current Visit: Yes Qualifiers: Heart failure type: unspecified Heart failure chronicity: acute on chronic Qualified Code(s): I50.9 - Heart failure, unspecified (3) DKA (diabetic ketoacidosis) SNOMED Code(s): 354580265, 448007334 Code(s): E11.10 - TYPE 2 DIABETES MELLITUS WITH KETOACIDOSIS WITHOUT COMA Status: Chronic Current Visit: Yes Qualifiers: Diabetes mellitus type: type 2 Diabetes mellitus complication detail: without coma Qualified Code(s): E11.10 - Type 2 diabetes mellitus with ketoacidosis without coma (4) Metabolic acidosis due to diabetes mellitus SNOMED Code(s): 654603705 Code(s): E11.69 - TYPE 2 DIABETES MELLITUS WITH OTHER SPECIFIED COMPLICATION; E87.2 - ACIDOSIS Status: Acute Current Visit: No - Problem List Review Problem List Initiated/Reviewed/Updated: Yes - My Orders Last 24 Hours: My Active Orders 03/01/21 13:25 Antiembolic Devices [RC] PER UNIT ROUTINE [facility] Hose [Antiembolic Hose] [OM.PC] Routine 03/01/21 13:45 Furosemide [Lasix] 20 mg PO DAILY - Assessment Assessment:: Assessment: presented with unresponsiveness, noted to have severe DKA - acute coronary syndrome, resolved treat CAD with asa, Plavix cont coreg, zetia, lisinopril - Acute on chronic congestive heart failure, unknown type, most likely systolic predominant Will need echo after discharge to further characterize Still has significant LE edema Treat with coreg, Started Lasix, Follow for need for K supplement Follow elytes and replace them as needed - DKA with unresponsiveness Resolved - Hypernatremia resolved Rechek in AM - Uncontrolled type 2 diabetes mellitus, insulin-dependent -treat with Lantus at night, and sliding scale lispro with meals -Continue lisinopril - follow for and treat hypoglycemia - Past history of cerebrovascular accident Weakness Cont pt/ot as tolerated She continues to refuse physical and occupational therapy here. She is bedbound, as she has no mobility at this time Nursing is watching her skin carefully for signs of breakdown - VTE prophylaxis: Is on Lovenox - Discharge planning continues to work on finding skilled nursing placement for her
[2021-03-02] MEDS: Ferrous Sulfate 325 MG Tab PO SCH (11:13)
[2021-03-02] MEDS: Lisinopril 10 MG Tab PO SCH (11:13)
[2021-03-02] MEDS: Aspirin 81 MG Tab.EC PO SCH (11:14)
[2021-03-02] MEDS: Furosemide 20 MG Tab PO SCH (11:14)
[2021-03-02] MEDS: Clopidogrel 75 MG Tab PO SCH (11:14)
[2021-03-02] MEDS: Enoxaparin 40 MG/0.4 ML Syringe SUBCUT SCH (11:15)
[2021-03-02] MEDS: Insulin Lispro 100 Units/ML 3 ML Vial SUBCUT SCH ×4 (12:11→21:20)
[2021-03-02] MEDS: Carvedilol 3.125 MG Tab PO SCH ×2 (12:34→19:03)
[2021-03-02] MEDS: Ezetimibe 10 MG Tab PO SCH (21:17)
[2021-03-02] MEDS: Zolpidem 5 MG Tab PO PRN (21:17)
[2021-03-02] MEDS: Insulin Glarg,Human.Rec.Analog 100 Unit/ML SUBCUT SCH (21:18)
[2021-03-03 07:08] LABS: ANION GAP 10.7 mEq/L (7-13); CHLORIDE,CL 108 mmol/L (98-107); SODIUM,NA 145 mmol/L (136-145)
[2021-03-03] MEDS: Aspirin 81 MG Tab.EC PO SCH (10:16)
[2021-03-03] MEDS: Lisinopril 10 MG Tab PO SCH (10:16)
[2021-03-03] MEDS: Furosemide 20 MG Tab PO SCH ×2 (10:17→15:19)
[2021-03-03] MEDS: Carvedilol 3.125 MG Tab PO SCH ×2 (10:17→17:46)
[2021-03-03] MEDS: Enoxaparin 40 MG/0.4 ML Syringe SUBCUT SCH (10:22)
--- NOTE | 2021-03-03 10:57 | PCM.PN ---
- General Info Date of Service: 03/03/21 Admission Dx/Problem (Free Text): Admission Diagnosis/Problem Admission Diagnosis/Problem Diabetic ketoacidosis with coma Subjective Update: Admitted with unresponsive episode - DKA with coma feeling well, no further hypoglycemic episodes no associated abdominal lindsay, no n/v has continued moderate LE edema, has been present for days, no associated sob in good mood, accepting to go to [place] lifted up into wheelchair - Review of Systems General: Reports: Weakness. Denies: Fever Pulmonary: Denies: Shortness of Breath Cardiovascular: Denies: Chest Pain, Palpitations Gastrointestinal: Denies: Abdominal Pain Genitourinary: Denies: Dysuria - Patient Data Vitals - Most Recent: Last Vital Signs Temp 97.0 F 03/03/21 07:34 Pulse 71 03/03/21 10:17 Resp 18 03/03/21 07:34 BP 144/74 H 03/03/21 10:17 Pulse Ox 96 03/03/21 07:34 Weight - Most Recent: 187 lb 8 oz I&O - Last 24 Hours: Intake & Output 03/02/21 03/03/21 03/03/21 22:59 06:59 14:59 Intake Total 1140 Output Total 783 819 Balance 357 -819 Lab Results Last 24 Hours: Laboratory Results - last 24 hr 03/02/21 03/02/21 03/02/21 Range/Units 11:13 16:26 20:35 WBC (5.0-10.0) 10^3/uL RBC (4.2-5.4) 10^6/uL Hgb (12.0-16.0) g/dL Hct (37.0-47.0) % MCV (80-100) fL MCH (27.0-34.0) pg MCHC (33.0-35.0) g/dL Plt Count (150-450) 10^3/uL Neut % (Auto) (42.2-75.2) % Lymph % (Auto) (20.5-50.1) % [place] % (Auto) (2-8) % Eos % (Auto) (1.0-3.0) % Baso % (Auto) (0.0-1.0) % Sodium (136-145) mmol/L Potassium (3.5-5.1) mmol/L Chloride (98-107) mmol/L Carbon Dioxide (21-32) mmol/L Anion Gap (7-13) mEq/L BUN (7-18) mg/dL Creatinine (0.55-1.02) mg/dL Est Cr Clr Drug Dosing mL/min Estimated GFR (MDRD) Glucose (70-99) mg/dL POC Glucose 153 H 218 H 195 H (70-99) mg/dL Calcium (8.5-10.1) mg/dL 03/03/21 03/03/21 03/03/21 Range/Units 06:25 06:25 07:28 WBC 6.2 (5.0-10.0) 10^3/uL RBC 4.38 (4.2-5.4) 10^6/uL Hgb 10.0 L (12.0-16.0) g/dL Hct 31.2 L (37.0-47.0) % MCV 71.2 L (80-100) fL MCH 22.8 L (27.0-34.0) pg MCHC 32.1 L (33.0-35.0) g/dL Plt Count 277 (150-450) 10^3/uL Neut % (Auto) 59.9 (42.2-75.2) % Lymph % (Auto) 27.8 (20.5-50.1) % [place] % (Auto) 11.9 H (2-8) % Eos % (Auto) 0.2 L (1.0-3.0) % Baso % (Auto) 0.2 (0.0-1.0) % Sodium 145 (136-145) mmol/L Potassium 3.7 (3.5-5.1) mmol/L Chloride 108 H (98-107) mmol/L Carbon Dioxide 30 (21-32) mmol/L Anion Gap 10.7 (7-13) mEq/L BUN 11 (7-18) mg/dL Creatinine 0.65 (0.55-1.02) mg/dL Est Cr Clr Drug Dosing 79.43 mL/min Estimated GFR (MDRD) > 60 Glucose 101 H (70-99) mg/dL POC Glucose 108 H (70-99) mg/dL Calcium 8.3 L (8.5-10.1) mg/dL Med Orders - Current: Current Medications Acetaminophen (Acetaminophen 500 Mg Tab) 500 mg PO Q4H PRN PRN Reason: Pain/Fever Last Admin: 02/27/21 08:49 Dose: 500 mg Documented by: Aspirin (Aspirin 81 Mg Tab.Ec) 81 mg PO DAILY [facility] Last Admin: 03/03/21 10:16 Dose: 81 mg Documented by: Carvedilol (Carvedilol 3.125 Mg Tab) 6.25 mg PO BIDMEALS [facility] Last Admin: 03/03/21 10:17 Dose: 6.25 mg Documented by: Clopidogrel Bisulfate (Clopidogrel 75 Mg Tab) 75 mg PO DAILY [facility] Last Admin: 03/02/21 11:14 Dose: 75 mg Documented by: Dextrose/Water (50% Dextrose In Water 50 Ml Syringe) 25 ml IVPUSH Q15M PRN PRN Reason: Hypoglycemia Last Admin: 02/28/21 08:35 Dose: 25 ml Documented by: Ezetimibe (Ezetimibe 10 Mg Tab) 10 mg PO BEDTIME [facility] Last Admin: 03/02/21 21:17 Dose: 10 mg Documented by: Enoxaparin Sodium (Enoxaparin 40 Mg/0.4 Ml Syringe) 40 mg SUBCUT DAILY [facility] Last Admin: 03/03/21 10:22 Dose: 40 mg Documented by: Ferrous Sulfate (Ferrous Sulfate 325 Mg Tab) 325 mg PO Q48H [facility] Last Admin: 03/02/21 11:13 Dose: 325 mg Documented by: Furosemide (Furosemide 20 Mg Tab) 20 mg PO BID [facility] Glucagon (Glucagon,Human Recombinant 1 Mg Vial) 1 mg IM Q15M PRN PRN Reason: Hypoglycemia Insulin Glargine (Insulin Glarg,Human.Rec.Analog 100 Unit/Ml) 20 unit SUBCUT BEDTIME [facility] Last Admin: 03/02/21 21:18 Dose: 20 units Documented by: Insulin Human Lispro (Insulin Lispro 100 Units/Ml 3 Ml Vial) 0 unit SUBCUT WITHMEALSANDBED [facility]; Protocol Last Admin: 03/02/21 21:20 Dose: 2 units Documented by: Lisinopril (Lisinopril 10 Mg Tab) 10 mg PO DAILY [facility] Last Admin: 03/03/21 10:16 Dose: 10 mg Documented by: Melatonin (Melatonin 3 Mg Tab) 6 mg PO BEDTIME PRN PRN Reason: Sleep Last Admin: 02/22/21 21:29 Dose: 6 mg Documented by: Nystatin (Nystatin Topical Powder 30 Gm Bottle) 1 gm TOP Q8H PRN PRN Reason: Rash Zolpidem Tartrate (Zolpidem 5 Mg Tab) 5 mg PO BEDTIME PRN PRN Reason: Sleep Last Admin: 03/02/21 21:17 Dose: 5 mg Documented by: Discontinued Medications COVID-19 Vaccine mRNA LNP-S (PFR) (PF) (Covid-19 Vacc, Mrna(Pfizer)/Pf 30 Mcg/0.3 Ml Vial) 30 mcg IM .ONCE ONE Stop: 02/25/21 16:21 Last Admin: 02/25/21 17:11 Dose: Not Given Documented by: Carvedilol (Carvedilol 6.25 Mg Tab) 6.25 mg PO ONETIME ONE Stop: 02/19/21 12:28 Last Admin: 02/19/21 12:36 Dose: Not Given Documented by: Carvedilol (Carvedilol 3.125 Mg Tab) 3.125 mg PO BIDMEALS [facility] Last Admin: 02/28/21 09:52 Dose: 3.125 mg Documented by: Clopidogrel Bisulfate (Clopidogrel 75 Mg Tab) 225 mg PO ONETIME STA Stop: 02/17/21 11:11 Last Admin: 02/17/21 11:24 Dose: 225 mg Documented by: Dextrose/Water (50% Dextrose In Water 50 Ml Syringe) 50 ml IVPUSH Q15M PRN PRN Reason: Hypoglycemia Dextrose/Water (50% Dextrose In Water 50 Ml Syringe) 50 ml IVPUSH Q15M PRN PRN Reason: Hypoglycemia Dextrose/Water (50% Dextrose In Water 50 Ml Syringe) 50 ml IVPUSH Q15M PRN PRN Reason: Hypoglycemia Dextrose/Water (50% Dextrose In Water 50 Ml Syringe) Confirm Administered Dose 50 ml .ROUTE .STK-MED ONE Stop: 02/20/21 07:41 Last Admin: 02/20/21 08:14 Dose: Not Given Documented by: Dextrose/Water (50% Dextrose In Water 50 Ml Syringe) 50 ml IVPUSH ONETIME ONE Stop: 02/26/21 07:46 Last Admin: 02/26/21 07:45 Dose: 50 ml Documented by: Furosemide (Furosemide 20 Mg/2 Ml Vial) 20 mg IVPUSH ONETIME ONE Stop: 02/16/21 15:51 Last Admin: 02/16/21 15:54 Dose: 20 mg Documented by: Furosemide (Furosemide 40 Mg/4 Ml Vial) 40 mg IVPUSH ONETIME ONE Stop: 02/23/21 16:01 Last Admin: 02/23/21 16:00 Dose: 40 mg Documented by: Furosemide (Furosemide 20 Mg Tab) 20 mg PO DAILY [facility] Last Admin: 03/03/21 10:17 Dose: 20 mg Documented by: Glucagon (Glucagon,Human Recombinant 1 Mg Vial) 1 mg IM Q15M PRN PRN Reason: Hypoglycemia Heparin Sodium (Porcine) (Heparin Sodium 5,000 Units/Ml Vial) 4,700 units IV ONETIME ONE Stop: 02/17/21 08:31 Last Admin: 02/17/21 08:34 Dose: 4,700 units Documented by: Heparin Sodium (Porcine) (Heparin Sodium 5,000 Units/Ml Vial) 1,000 units IVPUSH ONETIME ONE Stop: 02/17/21 22:56 Last Admin: 02/17/21 23:14 Dose: 1,000 units Documented by: Heparin Sodium (Porcine) (Heparin Sodium 5,000 Units/Ml Vial) 2,000 units IVPUSH .BOLUS ONE Stop: 02/18/21 09:18 Last Admin: 02/18/21 09:35 Dose: 2,000 units Documented by: Heparin Sodium (Porcine) (Heparin Sodium 5,000 Units/Ml Vial) 2,000 units IVPUSH ONETIME ONE Stop: 02/18/21 22:43 Last Admin: 02/18/21 22:55 Dose: 2,000 units Documented by: Sodium Chloride (Normal Saline) 1,000 mls @ 999 mls/hr IV .BOLUS ONE Stop: 02/16/21 15:00 Last Admin: 02/16/21 17:42 Dose: 999 mls/hr Documented by: Albumin Human (Buminate 5%) 250 mls @ 250 mls/hr IV ASDIRECTED [facility] Last Admin: 02/16/21 15:01 Dose: 250 mls/hr Documented by: Sodium Bicarbonate 100 meq/ (Dextrose/Water) 1,100 mls @ 100 mls/hr IV ONETIME ONE Stop: 02/17/21 02:02 Last Admin: 02/16/21 15:18 Dose: 100 mls/hr Documented by: Insulin Regular in 0.9 % NACL (Myxredlin In Ns 100 Unit/100 Ml) 100 unit in 100 mls @ 7.82 mls/hr IV TITRATE ERIN; Protocol Sodium Bicarbonate 100 meq/ (Dextrose/Water) 1,100 mls @ 999 mls/hr IV ONETIME ONE Stop: 02/16/21 18:27 Last Admin: 02/16/21 22:50 Dose: Not Given Documented by: Sodium Chloride (Normal Saline) 1,000 mls @ 250 mls/hr IV ASDIRECTED ERIN Insulin Regular in 0.9 % NACL (Myxredlin In Ns 100 Unit/100 Ml) 100 unit in 100 mls @ 7.82 mls/hr IV TITRATE ERIN; Protocol Last Titration: 02/17/21 02:36 Dose: 0 units/kg/hr, 0 mls/hr Documented by: Levofloxacin/Dextrose 500 mg/ (Premix) 100 mls @ 100 mls/hr IV Q24H ERIN Last Admin: 02/16/21 20:54 Dose: 100 mls/hr Documented by: Sodium Chloride (Normal Saline) 1,000 mls @ 1,000 mls/hr IV ASDIRECTED ERIN Stop: 02/16/21 19:59 Last Admin: 02/16/21 19:02 Dose: 1,000 mls/hr Documented by: Potassium Chloride/Sodium Chloride (Normal Saline With 40 Meq Kcl) 1,000 mls @ 250 mls/hr IV ASDIRECTED ERIN Last Admin: 02/17/21 01:48 Dose: 250 mls/hr Documented by: Sodium Bicarbonate 100 meq/ (Dextrose/Water) 1,100 mls @ 150 mls/hr IV ONETIME ONE Stop: 02/17/21 10:39 Last Infusion: 02/17/21 07:55 Dose: 50 mls/hr Documented by: Heparin Sodium/Sodium Chloride (Heparin 25,000 Units In 1/2 Ns 500 Ml) 25,000 units in 500 mls @ 18.768 mls/hr IV TITRATE ERIN; Protocol Last Admin: 02/19/21 03:31 Dose: 22 units/kg/hr, 34.408 mls/hr Documented by: Levofloxacin/Dextrose 500 mg/ (Premix) 100 mls @ 100 mls/hr IV Q48H ERIN Last Admin: 02/18/21 17:21 Dose: 100 mls/hr Documented by: Lactated Ringer's (Ringers, Lactated) 1,000 mls @ 125 mls/hr IV ASDIRECTED [facility] Last Admin: 02/19/21 05:45 Dose: 125 mls/hr Documented by: Levofloxacin/Dextrose 750 mg/ (Premix) 150 mls @ 100 mls/hr IV Q24H ERIN Stop: 02/21/21 11:01 Last Admin: 02/21/21 11:15 Dose: 100 mls/hr Documented by: Potassium Chloride 20 meq/ (Premix) 100 mls @ 50 mls/hr IV ONETIME ONE Stop: 02/20/21 09:22 Last Admin: 02/20/21 08:00 Dose: 50 mls/hr Documented by: Calcium Gluconate 1 gm/ Sodium (Chloride) 110 mls @ 110 mls/hr IV ONETIME ONE Stop: 02/20/21 08:29 Last Admin: 02/20/21 08:14 Dose: 110 mls/hr Documented by: Albumin Human 50 gm/ Premix 200 mls @ 100 mls/hr IV NOW ONE Stop: 02/23/21 13:21 Last Admin: 02/23/21 12:12 Dose: 100 mls/hr Documented by: Insulin Glargine (Insulin Glarg,Human.Rec.Analog 100 Unit/Ml) 35 unit SUBCUT ONETIME ONE Stop: 02/17/21 04:13 Last Admin: 02/17/21 04:28 Dose: 35 units Documented by: Insulin Glargine (Insulin Glarg,Human.Rec.Analog 100 Unit/Ml) 20 unit SUBCUT ONETIME ONE Stop: 02/19/21 09:23 Last Admin: 02/19/21 09:57 Dose: 20 units Documented by: Insulin Glargine (Insulin Glarg,Human.Rec.Analog 100 Unit/Ml) 40 unit SUBCUT BEDTIME [facility] Last Admin: 02/19/21 21:47 Dose: 40 units Documented by: Insulin Human Lispro (Insulin Lispro 100 Units/Ml 3 Ml Vial) 5 unit SUBCUT ONETIME ONE Stop: 02/17/21 04:15 Last Admin: 02/17/21 04:29 Dose: 5 units Documented by: Insulin Human Lispro (Insulin Lispro 100 Units/Ml 3 Ml Vial) 0 unit SUBCUT WITHMEALSANDBED [facility]; Protocol Last Admin: 02/18/21 09:04 Dose: Not Given Documented by: Insulin Human Lispro (Insulin Lispro 100 Units/Ml 3 Ml Vial) 14 unit SUBCUT ONETIME ONE Stop: 02/19/21 12:27 Last Admin: 02/19/21 12:36 Dose: Not Given Documented by: Insulin Human Lispro (Insulin Lispro 100 Units/Ml 3 Ml Vial) 12 unit SUBCUT ONETIME ONE Stop: 02/19/21 12:27 Last Admin: 02/19/21 12:41 Dose: 12 units Documented by: Insulin Human Regular (Insulin Regular, Human 100 Units/Ml 3 Ml Vial) 5 unit IV ONETIME ONE Stop: 02/16/21 14:22 Last Admin: 02/16/21 14:59 Dose: 5 unit Documented by: Insulin Human Regular (Insulin Regular, Human 100 Units/Ml 3 Ml Vial) 10 unit IV STAT STA Stop: 02/16/21 17:11 Last Admin: 02/16/21 17:19 Dose: 10 units Documented by: Insulin Human Regular (Insulin Regular, Human 100 Units/Ml 3 Ml Vial) 10 unit IV ONETIME ONE Stop: 02/16/21 18:13 Last Admin: 02/16/21 18:14 Dose: 10 units Documented by: Lisinopril (Lisinopril 5 Mg Tab) 2.5 mg PO DAILY [facility] Metolazone (Metolazone 2.5 Mg Tab) 5 mg PO ONETIME ONE Stop: 02/27/21 06:01 Last Admin: 02/27/21 06:07 Dose: 5 mg Documented by: Nitroglycerin (Nitroglycerin 0.4 Mg Tab.Sl) 0.4 mg SL ONETIME ONE Stop: 02/18/21 15:41 Last Admin: 02/18/21 15:47 Dose: 0.4 mg Documented by: Nystatin (Nystatin Topical Powder 30 Gm Bottle) 0 gm TOP Q8H [facility] Last Admin: 02/19/21 03:43 Dose: 1 applic Documented by: Nystatin (Nystatin Topical Powder 30 Gm Bottle) 0 gm TOP Q8HR [facility] Last Admin: 02/28/21 22:12 Dose: 1 applic Documented by: Potassium Chloride (Potassium Chloride 10 Meq Tab.Er) 40 meq PO ONETIME ONE Stop: 02/17/21 03:20 Last Admin: 02/17/21 07:20 Dose: Not Given Documented by: Potassium Chloride (Potassium Chloride 10 Meq Tab.Er) 40 meq PO ONETIME ONE Stop: 02/17/21 07:52 Last Admin: 02/17/21 08:43 Dose: 40 meq Documented by: Potassium Chloride (Potassium Chloride 10% 20 Meq/15 Ml Soln 15 Ml Ud Cup) 40 meq PO ONETIME ONE Stop: 02/17/21 17:01 Last Admin: 02/17/21 17:41 Dose: 40 meq Documented by: Potassium Chloride (Potassium Chloride 10 Meq Tab.Er) 20 meq PO DAILY ERIN Sodium Bicarbonate (Sodium Bicarbonate 8.4% 50 Meq/50 Ml Syringe) 50 meq IVPUSH ONETIME ONE Stop: 02/16/21 15:04 Last Admin: 02/16/21 15:08 Dose: 50 meq Documented by: Sodium Bicarbonate (Sodium Bicarbonate 8.4% 50 Meq/50 Ml Syringe) 100 meq IVPUSH ONETIME ONE Stop: 02/16/21 17:24 Last Admin: 02/16/21 17:49 Dose: 100 meq Documented by: Zolpidem Tartrate (Zolpidem 5 Mg Tab) 5 mg PO ONETIME ONE Stop: 02/18/21 22:06 Last Admin: 02/18/21 22:17 Dose: 5 mg Documented by: Zolpidem Tartrate (Zolpidem 5 Mg Tab) 5 mg PO ONETIME ONE Stop: 02/20/21 00:18 Last Admin: 02/20/21 00:38 Dose: 5 mg Documented by: - Exam Urinary Catheter Total Time: 2Days 13Hours General: Alert, Oriented Neck: Supple Lungs: Normal Respiratory Effort, Decreased Breath Sounds Cardiovascular: Regular Rate, Regular Rhythm GI/Abdominal Exam: Normal Bowel Sounds, Soft, Non-Tender Extremities: Pedal Edema (1-2+) - Patient Data Lab Results Last 24 hrs: Laboratory Results - last 24 hr 03/02/21 03/02/21 03/02/21 Range/Units 11:13 16:26 20:35 WBC (5.0-10.0) 10^3/uL RBC (4.2-5.4) 10^6/uL Hgb (12.0-16.0) g/dL Hct (37.0-47.0) % MCV (80-100) fL MCH (27.0-34.0) pg MCHC (33.0-35.0) g/dL Plt Count (150-450) 10^3/uL Neut % (Auto) (42.2-75.2) % Lymph % (Auto) (20.5-50.1) % [place] % (Auto) (2-8) % Eos % (Auto) (1.0-3.0) % Baso % (Auto) (0.0-1.0) % Sodium (136-145) mmol/L Potassium (3.5-5.1) mmol/L Chloride (98-107) mmol/L Carbon Dioxide (21-32) mmol/L Anion Gap (7-13) mEq/L BUN (7-18) mg/dL Creatinine (0.55-1.02) mg/dL Est Cr Clr Drug Dosing mL/min Estimated GFR (MDRD) Glucose (70-99) mg/dL POC Glucose 153 H 218 H 195 H (70-99) mg/dL Calcium (8.5-10.1) mg/dL 03/03/21 03/03/21 03/03/21 Range/Units 06:25 06:25 07:28 WBC 6.2 (5.0-10.0) 10^3/uL RBC 4.38 (4.2-5.4) 10^6/uL Hgb 10.0 L (12.0-16.0) g/dL Hct 31.2 L (37.0-47.0) % MCV 71.2 L (80-100) fL MCH 22.8 L (27.0-34.0) pg MCHC 32.1 L (33.0-35.0) g/dL Plt Count 277 (150-450) 10^3/uL Neut % (Auto) 59.9 (42.2-75.2) % Lymph % (Auto) 27.8 (20.5-50.1) % [place] % (Auto) 11.9 H (2-8) % Eos % (Auto) 0.2 L (1.0-3.0) % Baso % (Auto) 0.2 (0.0-1.0) % Sodium 145 (136-145) mmol/L Potassium 3.7 (3.5-5.1) mmol/L Chloride 108 H (98-107) mmol/L Carbon Dioxide 30 (21-32) mmol/L Anion Gap 10.7 (7-13) mEq/L BUN 11 (7-18) mg/dL Creatinine 0.65 (0.55-1.02) mg/dL Est Cr Clr Drug Dosing 79.43 mL/min Estimated GFR (MDRD) > 60 Glucose 101 H (70-99) mg/dL POC Glucose 108 H (70-99) mg/dL Calcium 8.3 L (8.5-10.1) mg/dL Result Diagrams: 03/03/21 06:25 03/03/21 06:25 Sepsis Event Note - Evaluation Sepsis Screening Result: No Definite Risk - Focused Exam Vital Signs: Vital Signs Temp Pulse Pulse Resp BP BP Pulse Ox 03/03/21 10:17 71 144/74 H 03/03/21 10:16 144/74 H 03/03/21 07:34 97.0 F 71 18 144/74 H 96 03/03/21 04:00 97.9 F 73 22 H 140/81 96 03/03/21 00:00 97.6 F 77 20 140/49 L 96 - Problem List & Annotations (1) Acute coronary syndrome with high troponin SNOMED Code(s): 813720385, 387659836 Code(s): I24.9 - ACUTE ISCHEMIC HEART DISEASE, UNSPECIFIED Status: Acute Current Visit: Yes (2) Congestive heart failure SNOMED Code(s): 15440016 Code(s): I50.9 - HEART FAILURE, UNSPECIFIED Status: Acute Current Visit: Yes Qualifiers: Heart failure type: unspecified Heart failure chronicity: acute on chronic Qualified Code(s): I50.9 - Heart failure, unspecified (3) DKA (diabetic ketoacidosis) SNOMED Code(s): 617836994, 516802884 Code(s): E11.10 - TYPE 2 DIABETES MELLITUS WITH KETOACIDOSIS WITHOUT COMA Status: Chronic Current Visit: Yes Qualifiers: Diabetes mellitus type: type 2 Diabetes mellitus complication detail: without coma Qualified Code(s): E11.10 - Type 2 diabetes mellitus with ketoacidosis without coma (4) Metabolic acidosis due to diabetes mellitus SNOMED Code(s): 404225720 Code(s): E11.69 - TYPE 2 DIABETES MELLITUS WITH OTHER SPECIFIED COMPLICATION; E87.2 - ACIDOSIS Status: Acute Current Visit: No - Problem List Review Problem List Initiated/Reviewed/Updated: Yes - My Orders Last 24 Hours: My Active Orders 03/03/21 21:00 Furosemide [Lasix] 20 mg PO BID - Assessment Assessment:: Assessment: presented with unresponsiveness, noted to have severe DKA - acute coronary syndrome, resolved treat CAD with asa, Plavix cont coreg, zetia, lisinopril - Acute on chronic congestive heart failure, unknown type, most likely systolic predominant Will need echo after discharge to further characterize Still has significant LE edema Treat with coreg, Started Lasix, will increase dose today Follow for need for K supplement recheck elytes in AM and replace them as needed - DKA with unresponsiveness Resolved - Hypernatremia resolved Rechek in AM - Uncontrolled type 2 diabetes mellitus, insulin-dependent -treat with Lantus at night, and sliding scale lispro with meals -Continue lisinopril - follow for and treat hypoglycemia - Past history of cerebrovascular accident Weakness Cont pt/ot as tolerated She continues to refuse physical and occupational therapy here. She is bedbound, as she has no mobility at this time Nursing is watching her skin carefully for signs of breakdown - VTE prophylaxis: Is on Lovenox - Discharge planning continues to work on finding fpc placement for her
[2021-03-03] MEDS: Insulin Lispro 100 Units/ML 3 ML Vial SUBCUT SCH ×4 (12:00→20:58)
[2021-03-03] MEDS: Clopidogrel 75 MG Tab PO SCH (12:59)
[2021-03-03] MEDS: Insulin Glarg,Human.Rec.Analog 100 Unit/ML SUBCUT SCH (20:56)
[2021-03-03] MEDS: Ezetimibe 10 MG Tab PO SCH (21:00)
[2021-03-03] MEDS: Zolpidem 5 MG Tab PO PRN (21:00)
[2021-03-04 06:30] LABS: ANION GAP 9.7 mEq/L (7-13); CHLORIDE,CL 109 mmol/L (98-107); SODIUM,NA 144 mmol/L (136-145)
[2021-03-04] MEDS: Ferrous Sulfate 325 MG Tab PO SCH (08:30)
[2021-03-04] MEDS: Aspirin 81 MG Tab.EC PO SCH (08:31)
[2021-03-04] MEDS: Furosemide 20 MG Tab PO SCH (08:31)
[2021-03-04] MEDS: Clopidogrel 75 MG Tab PO SCH (08:31)
[2021-03-04] MEDS: Carvedilol 3.125 MG Tab PO SCH ×2 (08:33→18:02)
[2021-03-04] MEDS: Lisinopril 10 MG Tab PO SCH (08:33)
[2021-03-04] MEDS: Insulin Lispro 100 Units/ML 3 ML Vial SUBCUT SCH ×4 (08:34→21:39)
[2021-03-04] MEDS: Enoxaparin 40 MG/0.4 ML Syringe SUBCUT SCH (08:34)
--- NOTE | 2021-03-04 11:53 | PCM.PN ---
- General Info Date of Service: 03/04/21 Admission Dx/Problem (Free Text): Admission Diagnosis/Problem Admission Diagnosis/Problem Diabetic ketoacidosis with coma Subjective Update: Admitted with unresponsive episode - DKA with coma feeling well, no further hypoglycemic episodes no associated abdominal pain, no n/v has increased moderate LE and upper extremity edema, has been present for days, no associated sob, worsening did not sleep well last night Functional Status: Reports: Pain Controlled, Tolerating Diet. Denies: Ambulating - Review of Systems General: Reports: Weakness Pulmonary: Denies: Shortness of Breath Cardiovascular: Reports: Edema. Denies: Chest Pain Gastrointestinal: Denies: Abdominal Pain Neurological: Denies: Confusion - Patient Data Vitals - Most Recent: Last Vital Signs Temp 95.0 F L 03/04/21 11:46 Pulse 71 03/04/21 11:46 Resp 18 03/04/21 11:46 BP 112/62 03/04/21 11:46 Pulse Ox 94 L 03/04/21 11:46 Weight - Most Recent: 187 lb 8 oz I&O - Last 24 Hours: Intake & Output 03/03/21 03/04/21 03/04/21 22:59 06:59 14:59 Intake Total 120 100 230 Balance 120 100 230 Lab Results Last 24 Hours: Laboratory Results - last 24 hr 03/03/21 03/03/21 03/04/21 Range/Units 16:52 20:29 06:05 WBC 5.0 (5.0-10.0) 10^3/uL RBC 4.41 (4.2-5.4) 10^6/uL Hgb 10.1 L (12.0-16.0) g/dL Hct 31.8 L (37.0-47.0) % MCV 72.1 L (80-100) fL MCH 22.9 L (27.0-34.0) pg MCHC 31.8 L (33.0-35.0) g/dL Plt Count 243 (150-450) 10^3/uL Neut % (Auto) 57.3 (42.2-75.2) % Lymph % (Auto) 27.2 (20.5-50.1) % Ponce % (Auto) 15.3 H (2-8) % Eos % (Auto) 0.0 L (1.0-3.0) % Baso % (Auto) 0.2 (0.0-1.0) % Sodium (136-145) mmol/L Potassium (3.5-5.1) mmol/L Chloride (98-107) mmol/L Carbon Dioxide (21-32) mmol/L Anion Gap (7-13) mEq/L BUN (7-18) mg/dL Creatinine (0.55-1.02) mg/dL Est Cr Clr Drug Dosing mL/min Estimated GFR (MDRD) Glucose (70-99) mg/dL POC Glucose 264 H 253 H (70-99) mg/dL Calcium (8.5-10.1) mg/dL 03/04/21 03/04/21 Range/Units 06:05 07:25 WBC (5.0-10.0) 10^3/uL RBC (4.2-5.4) 10^6/uL Hgb (12.0-16.0) g/dL Hct (37.0-47.0) % MCV (80-100) fL MCH (27.0-34.0) pg MCHC (33.0-35.0) g/dL Plt Count (150-450) 10^3/uL Neut % (Auto) (42.2-75.2) % Lymph % (Auto) (20.5-50.1) % Ponce % (Auto) (2-8) % Eos % (Auto) (1.0-3.0) % Baso % (Auto) (0.0-1.0) % Sodium 144 (136-145) mmol/L Potassium 3.7 (3.5-5.1) mmol/L Chloride 109 H (98-107) mmol/L Carbon Dioxide 29 (21-32) mmol/L Anion Gap 9.7 (7-13) mEq/L BUN 12 (7-18) mg/dL Creatinine 0.64 (0.55-1.02) mg/dL Est Cr Clr Drug Dosing 80.68 mL/min Estimated GFR (MDRD) > 60 Glucose 96 (70-99) mg/dL POC Glucose 75 (70-99) mg/dL Calcium 8.0 L (8.5-10.1) mg/dL Med Orders - Current: Current Medications Acetaminophen (Acetaminophen 500 Mg Tab) 500 mg PO Q4H PRN PRN Reason: Pain/Fever Last Admin: 02/27/21 08:49 Dose: 500 mg Documented by: Aspirin (Aspirin 81 Mg Tab.Ec) 81 mg PO DAILY [facility] Last Admin: 03/04/21 08:31 Dose: 81 mg Documented by: Carvedilol (Carvedilol 3.125 Mg Tab) 6.25 mg PO BIDMEALS [facility] Last Admin: 03/04/21 08:33 Dose: 6.25 mg Documented by: Clopidogrel Bisulfate (Clopidogrel 75 Mg Tab) 75 mg PO DAILY [facility] Last Admin: 03/04/21 08:31 Dose: 75 mg Documented by: Dextrose/Water (50% Dextrose In Water 50 Ml Syringe) 25 ml IVPUSH Q15M PRN PRN Reason: Hypoglycemia Last Admin: 02/28/21 08:35 Dose: 25 ml Documented by: Ezetimibe (Ezetimibe 10 Mg Tab) 10 mg PO BEDTIME [facility] Last Admin: 03/03/21 21:00 Dose: 10 mg Documented by: Enoxaparin Sodium (Enoxaparin 40 Mg/0.4 Ml Syringe) 40 mg SUBCUT DAILY [facility] Last Admin: 03/04/21 08:34 Dose: 40 mg Documented by: Ferrous Sulfate (Ferrous Sulfate 325 Mg Tab) 325 mg PO Q48H [facility] Last Admin: 03/04/21 08:30 Dose: 325 mg Documented by: Furosemide (Furosemide 20 Mg/2 Ml Vial) 20 mg IVPUSH Q8H [facility] Glucagon (Glucagon,Human Recombinant 1 Mg Vial) 1 mg IM Q15M PRN PRN Reason: Hypoglycemia Insulin Glargine (Insulin Glarg,Human.Rec.Analog 100 Unit/Ml) 20 unit SUBCUT BEDTIME [facility] Last Admin: 03/03/21 20:56 Dose: 20 units Documented by: Insulin Human Lispro (Insulin Lispro 100 Units/Ml 3 Ml Vial) 0 unit SUBCUT WITHMEALSANDBED [facility]; Protocol Last Admin: 03/04/21 08:34 Dose: Not Given Documented by: Lisinopril (Lisinopril 10 Mg Tab) 10 mg PO DAILY [facility] Last Admin: 03/04/21 08:33 Dose: 10 mg Documented by: Melatonin (Melatonin 3 Mg Tab) 6 mg PO BEDTIME PRN PRN Reason: Sleep Last Admin: 02/22/21 21:29 Dose: 6 mg Documented by: Nystatin (Nystatin Topical Powder 30 Gm Bottle) 1 gm TOP Q8H PRN PRN Reason: Rash Zolpidem Tartrate (Zolpidem 5 Mg Tab) 5 mg PO BEDTIME PRN PRN Reason: Sleep Last Admin: 03/03/21 21:00 Dose: 5 mg Documented by: Discontinued Medications COVID-19 Vaccine mRNA LNP-S (PFR) (PF) (Covid-19 Vacc, Mrna(Pfizer)/Pf 30 Mcg/0.3 Ml Vial) 30 mcg IM .ONCE ONE Stop: 02/25/21 16:21 Last Admin: 02/25/21 17:11 Dose: Not Given Documented by: Carvedilol (Carvedilol 6.25 Mg Tab) 6.25 mg PO ONETIME ONE Stop: 02/19/21 12:28 Last Admin: 02/19/21 12:36 Dose: Not Given Documented by: Carvedilol (Carvedilol 3.125 Mg Tab) 3.125 mg PO BIDMEALS [facility] Last Admin: 02/28/21 09:52 Dose: 3.125 mg Documented by: Clopidogrel Bisulfate (Clopidogrel 75 Mg Tab) 225 mg PO ONETIME STA Stop: 02/17/21 11:11 Last Admin: 02/17/21 11:24 Dose: 225 mg Documented by: Dextrose/Water (50% Dextrose In Water 50 Ml Syringe) 50 ml IVPUSH Q15M PRN PRN Reason: Hypoglycemia Dextrose/Water (50% Dextrose In Water 50 Ml Syringe) 50 ml IVPUSH Q15M PRN PRN Reason: Hypoglycemia Dextrose/Water (50% Dextrose In Water 50 Ml Syringe) 50 ml IVPUSH Q15M PRN PRN Reason: Hypoglycemia Dextrose/Water (50% Dextrose In Water 50 Ml Syringe) Confirm Administered Dose 50 ml .ROUTE .STK-MED ONE Stop: 02/20/21 07:41 Last Admin: 02/20/21 08:14 Dose: Not Given Documented by: Dextrose/Water (50% Dextrose In Water 50 Ml Syringe) 50 ml IVPUSH ONETIME ONE Stop: 02/26/21 07:46 Last Admin: 02/26/21 07:45 Dose: 50 ml Documented by: Furosemide (Furosemide 20 Mg/2 Ml Vial) 20 mg IVPUSH ONETIME ONE Stop: 02/16/21 15:51 Last Admin: 02/16/21 15:54 Dose: 20 mg Documented by: Furosemide (Furosemide 40 Mg/4 Ml Vial) 40 mg IVPUSH ONETIME ONE Stop: 02/23/21 16:01 Last Admin: 02/23/21 16:00 Dose: 40 mg Documented by: Furosemide (Furosemide 20 Mg Tab) 20 mg PO DAILY [facility] Last Admin: 03/03/21 10:17 Dose: 20 mg Documented by: Furosemide (Furosemide 20 Mg Tab) 20 mg PO BIDDIURETIC [facility] Last Admin: 03/04/21 08:31 Dose: 20 mg Documented by: Glucagon (Glucagon,Human Recombinant 1 Mg Vial) 1 mg IM Q15M PRN PRN Reason: Hypoglycemia Heparin Sodium (Porcine) (Heparin Sodium 5,000 Units/Ml Vial) 4,700 units IV ONETIME ONE Stop: 02/17/21 08:31 Last Admin: 02/17/21 08:34 Dose: 4,700 units Documented by: Heparin Sodium (Porcine) (Heparin Sodium 5,000 Units/Ml Vial) 1,000 units IVPUSH ONETIME ONE Stop: 02/17/21 22:56 Last Admin: 02/17/21 23:14 Dose: 1,000 units Documented by: Heparin Sodium (Porcine) (Heparin Sodium 5,000 Units/Ml Vial) 2,000 units IVPUSH .BOLUS ONE Stop: 02/18/21 09:18 Last Admin: 02/18/21 09:35 Dose: 2,000 units Documented by: Heparin Sodium (Porcine) (Heparin Sodium 5,000 Units/Ml Vial) 2,000 units IVPUSH ONETIME ONE Stop: 02/18/21 22:43 Last Admin: 02/18/21 22:55 Dose: 2,000 units Documented by: Sodium Chloride (Normal Saline) 1,000 mls @ 999 mls/hr IV .BOLUS ONE Stop: 02/16/21 15:00 Last Admin: 02/16/21 17:42 Dose: 999 mls/hr Documented by: Albumin Human (Buminate 5%) 250 mls @ 250 mls/hr IV ASDIRECTED [facility] Last Admin: 02/16/21 15:01 Dose: 250 mls/hr Documented by: Sodium Bicarbonate 100 meq/ (Dextrose/Water) 1,100 mls @ 100 mls/hr IV ONETIME ONE Stop: 02/17/21 02:02 Last Admin: 02/16/21 15:18 Dose: 100 mls/hr Documented by: Insulin Regular in 0.9 % NACL (Myxredlin In Ns 100 Unit/100 Ml) 100 unit in 100 mls @ 7.82 mls/hr IV TITRATE ERIN; Protocol Sodium Bicarbonate 100 meq/ (Dextrose/Water) 1,100 mls @ 999 mls/hr IV ONETIME ONE Stop: 02/16/21 18:27 Last Admin: 02/16/21 22:50 Dose: Not Given Documented by: Sodium Chloride (Normal Saline) 1,000 mls @ 250 mls/hr IV ASDIRECTED ERIN Insulin Regular in 0.9 % NACL (Myxredlin In Ns 100 Unit/100 Ml) 100 unit in 100 mls @ 7.82 mls/hr IV TITRATE ERIN; Protocol Last Titration: 02/17/21 02:36 Dose: 0 units/kg/hr, 0 mls/hr Documented by: Levofloxacin/Dextrose 500 mg/ (Premix) 100 mls @ 100 mls/hr IV Q24H [facility] Last Admin: 02/16/21 20:54 Dose: 100 mls/hr Documented by: Sodium Chloride (Normal Saline) 1,000 mls @ 1,000 mls/hr IV ASDIRECTED [facility] Stop: 02/16/21 19:59 Last Admin: 02/16/21 19:02 Dose: 1,000 mls/hr Documented by: Potassium Chloride/Sodium Chloride (Normal Saline With 40 Meq Kcl) 1,000 mls @ 250 mls/hr IV ASDIRECTED [facility] Last Admin: 02/17/21 01:48 Dose: 250 mls/hr Documented by: Sodium Bicarbonate 100 meq/ (Dextrose/Water) 1,100 mls @ 150 mls/hr IV ONETIME ONE Stop: 02/17/21 10:39 Last Infusion: 02/17/21 07:55 Dose: 50 mls/hr Documented by: Heparin Sodium/Sodium Chloride (Heparin 25,000 Units In 1/2 Ns 500 Ml) 25,000 units in 500 mls @ 18.768 mls/hr IV TITRATE ERIN; Protocol Last Admin: 02/19/21 03:31 Dose: 22 units/kg/hr, 34.408 mls/hr Documented by: Levofloxacin/Dextrose 500 mg/ (Premix) 100 mls @ 100 mls/hr IV Q48H [facility] Last Admin: 02/18/21 17:21 Dose: 100 mls/hr Documented by: Lactated Ringer's (Ringers, Lactated) 1,000 mls @ 125 mls/hr IV ASDIRECTED [facility] Last Admin: 02/19/21 05:45 Dose: 125 mls/hr Documented by: Levofloxacin/Dextrose 750 mg/ (Premix) 150 mls @ 100 mls/hr IV Q24H [facility] Stop: 02/21/21 11:01 Last Admin: 02/21/21 11:15 Dose: 100 mls/hr Documented by: Potassium Chloride 20 meq/ (Premix) 100 mls @ 50 mls/hr IV ONETIME ONE Stop: 02/20/21 09:22 Last Admin: 02/20/21 08:00 Dose: 50 mls/hr Documented by: Calcium Gluconate 1 gm/ Sodium (Chloride) 110 mls @ 110 mls/hr IV ONETIME ONE Stop: 02/20/21 08:29 Last Admin: 02/20/21 08:14 Dose: 110 mls/hr Documented by: Albumin Human 50 gm/ Premix 200 mls @ 100 mls/hr IV NOW ONE Stop: 02/23/21 13:21 Last Admin: 02/23/21 12:12 Dose: 100 mls/hr Documented by: Insulin Glargine (Insulin Glarg,Human.Rec.Analog 100 Unit/Ml) 35 unit SUBCUT ONETIME ONE Stop: 02/17/21 04:13 Last Admin: 02/17/21 04:28 Dose: 35 units Documented by: Insulin Glargine (Insulin Glarg,Human.Rec.Analog 100 Unit/Ml) 20 unit SUBCUT ONETIME ONE Stop: 02/19/21 09:23 Last Admin: 02/19/21 09:57 Dose: 20 units Documented by: Insulin Glargine (Insulin Glarg,Human.Rec.Analog 100 Unit/Ml) 40 unit SUBCUT BEDTIME [facility] Last Admin: 02/19/21 21:47 Dose: 40 units Documented by: Insulin Human Lispro (Insulin Lispro 100 Units/Ml 3 Ml Vial) 5 unit SUBCUT ONETIME ONE Stop: 02/17/21 04:15 Last Admin: 02/17/21 04:29 Dose: 5 units Documented by: Insulin Human Lispro (Insulin Lispro 100 Units/Ml 3 Ml Vial) 0 unit SUBCUT WITHMEALSANDBED [facility]; Protocol Last Admin: 02/18/21 09:04 Dose: Not Given Documented by: Insulin Human Lispro (Insulin Lispro 100 Units/Ml 3 Ml Vial) 14 unit SUBCUT ONETIME ONE Stop: 02/19/21 12:27 Last Admin: 02/19/21 12:36 Dose: Not Given Documented by: Insulin Human Lispro (Insulin Lispro 100 Units/Ml 3 Ml Vial) 12 unit SUBCUT ONETIME ONE Stop: 02/19/21 12:27 Last Admin: 02/19/21 12:41 Dose: 12 units Documented by: Insulin Human Regular (Insulin Regular, Human 100 Units/Ml 3 Ml Vial) 5 unit IV ONETIME ONE Stop: 02/16/21 14:22 Last Admin: 02/16/21 14:59 Dose: 5 unit Documented by: Insulin Human Regular (Insulin Regular, Human 100 Units/Ml 3 Ml Vial) 10 unit IV STAT STA Stop: 02/16/21 17:11 Last Admin: 02/16/21 17:19 Dose: 10 units Documented by: Insulin Human Regular (Insulin Regular, Human 100 Units/Ml 3 Ml Vial) 10 unit IV ONETIME ONE Stop: 02/16/21 18:13 Last Admin: 02/16/21 18:14 Dose: 10 units Documented by: Lisinopril (Lisinopril 5 Mg Tab) 2.5 mg PO DAILY [facility] Metolazone (Metolazone 2.5 Mg Tab) 5 mg PO ONETIME ONE Stop: 02/27/21 06:01 Last Admin: 02/27/21 06:07 Dose: 5 mg Documented by: Nitroglycerin (Nitroglycerin 0.4 Mg Tab.Sl) 0.4 mg SL ONETIME ONE Stop: 02/18/21 15:41 Last Admin: 02/18/21 15:47 Dose: 0.4 mg Documented by: Nystatin (Nystatin Topical Powder 30 Gm Bottle) 0 gm TOP Q8H [facility] Last Admin: 02/19/21 03:43 Dose: 1 applic Documented by: Nystatin (Nystatin Topical Powder 30 Gm Bottle) 0 gm TOP Q8HR [facility] Last Admin: 02/28/21 22:12 Dose: 1 applic Documented by: Potassium Chloride (Potassium Chloride 10 Meq Tab.Er) 40 meq PO ONETIME ONE Stop: 02/17/21 03:20 Last Admin: 02/17/21 07:20 Dose: Not Given Documented by: Potassium Chloride (Potassium Chloride 10 Meq Tab.Er) 40 meq PO ONETIME ONE Stop: 02/17/21 07:52 Last Admin: 02/17/21 08:43 Dose: 40 meq Documented by: Potassium Chloride (Potassium Chloride 10% 20 Meq/15 Ml Soln 15 Ml Ud Cup) 40 meq PO ONETIME ONE Stop: 02/17/21 17:01 Last Admin: 02/17/21 17:41 Dose: 40 meq Documented by: Potassium Chloride (Potassium Chloride 10 Meq Tab.Er) 20 meq PO DAILY [facility] Sodium Bicarbonate (Sodium Bicarbonate 8.4% 50 Meq/50 Ml Syringe) 50 meq IVPUSH ONETIME ONE Stop: 02/16/21 15:04 Last Admin: 02/16/21 15:08 Dose: 50 meq Documented by: Sodium Bicarbonate (Sodium Bicarbonate 8.4% 50 Meq/50 Ml Syringe) 100 meq IVPUSH ONETIME ONE Stop: 02/16/21 17:24 Last Admin: 02/16/21 17:49 Dose: 100 meq Documented by: Zolpidem Tartrate (Zolpidem 5 Mg Tab) 5 mg PO ONETIME ONE Stop: 02/18/21 22:06 Last Admin: 02/18/21 22:17 Dose: 5 mg Documented by: Zolpidem Tartrate (Zolpidem 5 Mg Tab) 5 mg PO ONETIME ONE Stop: 02/20/21 00:18 Last Admin: 02/20/21 00:38 Dose: 5 mg Documented by: - Exam Urinary Catheter Total Time: 2Days 13Hours General: Alert, Oriented Neck: Supple Lungs: Decreased Breath Sounds. No: Wheezing Cardiovascular: Regular Rate, Regular Rhythm GI/Abdominal Exam: Normal Bowel Sounds, Soft, Non-Tender Extremities: Pedal Edema (2+ LE , 1+ UE edema) Skin: Warm Neurological: No New Focal Deficit Psy/Mental Status: Alert, Normal Affect, Normal Mood - Patient Data Lab Results Last 24 hrs: Laboratory Results - last 24 hr 03/03/21 03/03/21 03/04/21 Range/Units 16:52 20:29 06:05 WBC 5.0 (5.0-10.0) 10^3/uL RBC 4.41 (4.2-5.4) 10^6/uL Hgb 10.1 L (12.0-16.0) g/dL Hct 31.8 L (37.0-47.0) % MCV 72.1 L (80-100) fL MCH 22.9 L (27.0-34.0) pg MCHC 31.8 L (33.0-35.0) g/dL Plt Count 243 (150-450) 10^3/uL Neut % (Auto) 57.3 (42.2-75.2) % Lymph % (Auto) 27.2 (20.5-50.1) % Ponce % (Auto) 15.3 H (2-8) % Eos % (Auto) 0.0 L (1.0-3.0) % Baso % (Auto) 0.2 (0.0-1.0) % Sodium (136-145) mmol/L Potassium (3.5-5.1) mmol/L Chloride (98-107) mmol/L Carbon Dioxide (21-32) mmol/L Anion Gap (7-13) mEq/L BUN (7-18) mg/dL Creatinine (0.55-1.02) mg/dL Est Cr Clr Drug Dosing mL/min Estimated GFR (MDRD) Glucose (70-99) mg/dL POC Glucose 264 H 253 H (70-99) mg/dL Calcium (8.5-10.1) mg/dL 03/04/21 03/04/21 Range/Units 06:05 07:25 WBC (5.0-10.0) 10^3/uL RBC (4.2-5.4) 10^6/uL Hgb (12.0-16.0) g/dL Hct (37.0-47.0) % MCV (80-100) fL MCH (27.0-34.0) pg MCHC (33.0-35.0) g/dL Plt Count (150-450) 10^3/uL Neut % (Auto) (42.2-75.2) % Lymph % (Auto) (20.5-50.1) % Ponce % (Auto) (2-8) % Eos % (Auto) (1.0-3.0) % Baso % (Auto) (0.0-1.0) % Sodium 144 (136-145) mmol/L Potassium 3.7 (3.5-5.1) mmol/L Chloride 109 H (98-107) mmol/L Carbon Dioxide 29 (21-32) mmol/L Anion Gap 9.7 (7-13) mEq/L BUN 12 (7-18) mg/dL Creatinine 0.64 (0.55-1.02) mg/dL Est Cr Clr Drug Dosing 80.68 mL/min Estimated GFR (MDRD) > 60 Glucose 96 (70-99) mg/dL POC Glucose 75 (70-99) mg/dL Calcium 8.0 L (8.5-10.1) mg/dL Result Diagrams: 03/04/21 06:05 03/04/21 06:05 Sepsis Event Note - Evaluation Sepsis Screening Result: No Definite Risk - Focused Exam Vital Signs: Vital Signs Temp Pulse Pulse Resp BP BP Pulse Ox 03/04/21 11:46 95.0 F L 71 18 112/62 94 L 03/04/21 08:33 70 130/63 03/04/21 07:32 97.4 F 70 20 130/63 100 03/04/21 04:00 98.0 F 71 20 127/63 94 L 03/04/21 00:00 97.4 F 75 22 H 142/63 H 94 L - Problem List & Annotations (1) Acute coronary syndrome with high troponin SNOMED Code(s): 573199285, 528570931 Code(s): I24.9 - ACUTE ISCHEMIC HEART DISEASE, UNSPECIFIED Status: Acute Current Visit: Yes (2) Congestive heart failure SNOMED Code(s): 98608792 Code(s): I50.9 - HEART FAILURE, UNSPECIFIED Status: Acute Current Visit: Yes Qualifiers: Heart failure type: unspecified Heart failure chronicity: acute on chronic Qualified Code(s): I50.9 - Heart failure, unspecified (3) DKA (diabetic ketoacidosis) SNOMED Code(s): 084114022, 411775882 Code(s): E11.10 - TYPE 2 DIABETES MELLITUS WITH KETOACIDOSIS WITHOUT COMA Status: Chronic Current Visit: Yes Qualifiers: Diabetes mellitus type: type 2 Diabetes mellitus complication detail: without coma Qualified Code(s): E11.10 - Type 2 diabetes mellitus with ketoacidosis without coma (4) Metabolic acidosis due to diabetes mellitus SNOMED Code(s): 501942832 Code(s): E11.69 - TYPE 2 DIABETES MELLITUS WITH OTHER SPECIFIED COMPLICATION; E87.2 - ACIDOSIS Status: Acute Current Visit: No - Problem List Review Problem List Initiated/Reviewed/Updated: Yes - My Orders Last 24 Hours: My Active Orders 03/04/21 11:37 GLUCOSE,POC [POC] Routine 03/04/21 14:00 Furosemide [Lasix] 20 mg IVPUSH Q8H 03/05/21 05:15 BASIC METABOLIC PANEL,BMP [CHEM] AM - Assessment Assessment:: Assessment: presented with unresponsiveness, noted to have severe DKA - acute coronary syndrome, resolved treat CAD with asa, Plavix cont coreg, zetia, lisinopril - Acute on chronic congestive heart failure, unknown type, most likely systolic predominant Will need echo after discharge to further characterize Still has significant LE edema Treat with coreg, Started Lasix, will increase dose today and switch to IV Follow for need for K supplement recheck elytes in AM and replace them as needed - DKA with unresponsiveness Resolved - Hypernatremia resolved Rechek in AM - Uncontrolled type 2 diabetes mellitus, insulin-dependent -treat with Lantus at night, and sliding scale lispro with meals -Continue lisinopril - follow for and treat hypoglycemia - Past history of cerebrovascular accident Weakness Cont pt/ot as tolerated Nursing is watching her skin carefully for signs of breakdown - VTE prophylaxis: Is on Lovenox - Discharge planning continues to work on finding [place] [facility] placement for her
[2021-03-04] MEDS: Furosemide 20 MG/2 ML VIAL IVPUSH SCH ×2 (13:53→21:43)
[2021-03-04] MEDS: Insulin Glarg,Human.Rec.Analog 100 Unit/ML SUBCUT SCH (21:41)
[2021-03-04] MEDS: Ezetimibe 10 MG Tab PO SCH (21:42)
[2021-03-04] MEDS: Zolpidem 5 MG Tab PO PRN (21:42)
[2021-03-04] MEDS: Acetaminophen 500 MG Tab PO PRN (23:44)
[2021-03-05] MEDS: Furosemide 20 MG/2 ML VIAL IVPUSH SCH ×3 (05:55→21:00)
[2021-03-05 06:44] LABS: ANION GAP 9.3 mEq/L (7-13); CHLORIDE,CL 109 mmol/L (98-107); SODIUM,NA 146 mmol/L (136-145)
[2021-03-05] MEDS: Lisinopril 10 MG Tab PO SCH (08:27)
[2021-03-05] MEDS: Aspirin 81 MG Tab.EC PO SCH (08:27)
[2021-03-05] MEDS: Carvedilol 3.125 MG Tab PO SCH ×2 (08:27→17:02)
[2021-03-05] MEDS: Clopidogrel 75 MG Tab PO SCH (08:27)
[2021-03-05] MEDS: Enoxaparin 40 MG/0.4 ML Syringe SUBCUT SCH (08:28)
[2021-03-05] MEDS: Insulin Lispro 100 Units/ML 3 ML Vial SUBCUT SCH ×4 (08:31→20:54)
--- NOTE | 2021-03-05 12:33 | PCM.PN ---
- General Info Date of Service: 03/05/21 Admission Dx/Problem (Free Text): Admission Diagnosis/Problem Admission Diagnosis/Problem Diabetic ketoacidosis with coma Subjective Update: 03/05/21 Admitted with unresponsive episode - DKA with coma. awaiting n.h. acceptance. ongoing edema a nd chf with low albumin and renal insuff with proteinuria .ongoing attempt to diurese. weakness long standing and she is non ambulatory with even 2 person assist cannot walk well. // ongoing rehab for this. b.s fair control, skin care ongoing for sec drying and induration and secondary yeast infection. toes no ulcers but dry and cracked. edema 3plus . lungs clear but basilar bs absent bilaterally . [place] with talking . cor irrge/irreg rate 80s. o2 sats 95% currently on .5 liter. lab creat. 1.8 k low and being replaced. family ( aware ) boh Functional Status: Reports: Pain Controlled, Urinating - Review of Systems General: Reports: No Symptoms HEENT: Reports: No Symptoms Pulmonary: Reports: No Symptoms, Shortness of Breath, Wheezing Cardiovascular: Reports: No Symptoms, Dyspnea on Exertion, Edema Gastrointestinal: Reports: No Symptoms Genitourinary: Reports: No Symptoms Musculoskeletal: Reports: No Symptoms, Joint Swelling Skin: Reports: No Symptoms Neurological: Reports: No Symptoms, Difficulty Walking, Weakness, Gait Disturbance Psychiatric: Reports: No Symptoms - Patient Data Vitals - Most Recent: Last Vital Signs Temp 36.4 C 03/05/21 12:00 Pulse 70 03/05/21 12:00 Resp 18 03/05/21 12:00 BP 117/75 03/05/21 12:00 Pulse Ox 93 L 03/05/21 12:00 Weight - Most Recent: 84.92 kg I&O - Last 24 Hours: Intake & Output 03/04/21 03/05/21 03/05/21 22:59 06:59 14:59 Intake Total 1060 160 Balance 1060 160 Lab Results Last 24 Hours: Laboratory Results - last 24 hr 03/04/21 03/04/21 03/05/21 Range/Units 16:45 19:41 06:10 Sodium 146 H (136-145) mmol/L Potassium 3.3 L (3.5-5.1) mmol/L Chloride 109 H (98-107) mmol/L Carbon Dioxide 31 (21-32) mmol/L Anion Gap 9.3 (7-13) mEq/L BUN 13 (7-18) mg/dL Creatinine 0.72 (0.55-1.02) mg/dL Est Cr Clr Drug Dosing 71.71 mL/min Estimated GFR (MDRD) > 60 Glucose 169 H (70-99) mg/dL POC Glucose 276 H 289 H (70-99) mg/dL Calcium 8.0 L (8.5-10.1) mg/dL 03/05/21 03/05/21 Range/Units 07:31 11:29 Sodium (136-145) mmol/L Potassium (3.5-5.1) mmol/L Chloride (98-107) mmol/L Carbon Dioxide (21-32) mmol/L Anion Gap (7-13) mEq/L BUN (7-18) mg/dL Creatinine (0.55-1.02) mg/dL Est Cr Clr Drug Dosing mL/min Estimated GFR (MDRD) Glucose (70-99) mg/dL POC Glucose 130 H 153 H (70-99) mg/dL Calcium (8.5-10.1) mg/dL Med Orders - Current: Current Medications Acetaminophen (Acetaminophen 500 Mg Tab) 500 mg PO Q4H PRN PRN Reason: Pain/Fever Last Admin: 03/04/21 23:44 Dose: 500 mg Documented by: Aspirin (Aspirin 81 Mg Tab.Ec) 81 mg PO DAILY [facility] Last Admin: 03/05/21 08:27 Dose: 81 mg Documented by: Carvedilol (Carvedilol 3.125 Mg Tab) 6.25 mg PO BIDMEALS [facility] Last Admin: 03/05/21 08:27 Dose: 6.25 mg Documented by: Clopidogrel Bisulfate (Clopidogrel 75 Mg Tab) 75 mg PO DAILY [facility] Last Admin: 03/05/21 08:27 Dose: 75 mg Documented by: Dextrose/Water (50% Dextrose In Water 50 Ml Syringe) 25 ml IVPUSH Q15M PRN PRN Reason: Hypoglycemia Last Admin: 02/28/21 08:35 Dose: 25 ml Documented by: Ezetimibe (Ezetimibe 10 Mg Tab) 10 mg PO BEDTIME [facility] Last Admin: 03/04/21 21:42 Dose: 10 mg Documented by: Enoxaparin Sodium (Enoxaparin 40 Mg/0.4 Ml Syringe) 40 mg SUBCUT DAILY [facility] Last Admin: 03/05/21 08:28 Dose: 40 mg Documented by: Ferrous Sulfate (Ferrous Sulfate 325 Mg Tab) 325 mg PO Q48H [facility] Last Admin: 03/04/21 08:30 Dose: 325 mg Documented by: Furosemide (Furosemide 20 Mg/2 Ml Vial) 20 mg IVPUSH Q8H [facility] Last Admin: 03/05/21 05:55 Dose: 20 mg Documented by: Glucagon (Glucagon,Human Recombinant 1 Mg Vial) 1 mg IM Q15M PRN PRN Reason: Hypoglycemia Insulin Glargine (Insulin Glarg,Human.Rec.Analog 100 Unit/Ml) 20 unit SUBCUT BEDTIME [facility] Last Admin: 03/04/21 21:41 Dose: 20 units Documented by: Insulin Human Lispro (Insulin Lispro 100 Units/Ml 3 Ml Vial) 0 unit SUBCUT WITHMEALSANDBED [facility]; Protocol Last Admin: 03/05/21 08:31 Dose: Not Given Documented by: Lisinopril (Lisinopril 10 Mg Tab) 10 mg PO DAILY [facility] Last Admin: 03/05/21 08:27 Dose: 10 mg Documented by: Melatonin (Melatonin 3 Mg Tab) 6 mg PO BEDTIME PRN PRN Reason: Sleep Last Admin: 02/22/21 21:29 Dose: 6 mg Documented by: Nystatin (Nystatin Topical Powder 30 Gm Bottle) 1 gm TOP Q8H PRN PRN Reason: Rash Zolpidem Tartrate (Zolpidem 5 Mg Tab) 5 mg PO BEDTIME PRN PRN Reason: Sleep Last Admin: 03/04/21 21:42 Dose: 5 mg Documented by: Discontinued Medications COVID-19 Vaccine mRNA LNP-S (PFR) (PF) (Covid-19 Vacc, Mrna(Pfizer)/Pf 30 Mcg/0.3 Ml Vial) 30 mcg IM .ONCE ONE Stop: 02/25/21 16:21 Last Admin: 02/25/21 17:11 Dose: Not Given Documented by: Carvedilol (Carvedilol 6.25 Mg Tab) 6.25 mg PO ONETIME ONE Stop: 02/19/21 12:28 Last Admin: 02/19/21 12:36 Dose: Not Given Documented by: Carvedilol (Carvedilol 3.125 Mg Tab) 3.125 mg PO BIDMEALS [facility] Last Admin: 02/28/21 09:52 Dose: 3.125 mg Documented by: Clopidogrel Bisulfate (Clopidogrel 75 Mg Tab) 225 mg PO ONETIME STA Stop: 02/17/21 11:11 Last Admin: 02/17/21 11:24 Dose: 225 mg Documented by: Dextrose/Water (50% Dextrose In Water 50 Ml Syringe) 50 ml IVPUSH Q15M PRN PRN Reason: Hypoglycemia Dextrose/Water (50% Dextrose In Water 50 Ml Syringe) 50 ml IVPUSH Q15M PRN PRN Reason: Hypoglycemia Dextrose/Water (50% Dextrose In Water 50 Ml Syringe) 50 ml IVPUSH Q15M PRN PRN Reason: Hypoglycemia Dextrose/Water (50% Dextrose In Water 50 Ml Syringe) Confirm Administered Dose 50 ml .ROUTE .STK-MED ONE Stop: 02/20/21 07:41 Last Admin: 02/20/21 08:14 Dose: Not Given Documented by: Dextrose/Water (50% Dextrose In Water 50 Ml Syringe) 50 ml IVPUSH ONETIME ONE Stop: 02/26/21 07:46 Last Admin: 02/26/21 07:45 Dose: 50 ml Documented by: Furosemide (Furosemide 20 Mg/2 Ml Vial) 20 mg IVPUSH ONETIME ONE Stop: 02/16/21 15:51 Last Admin: 02/16/21 15:54 Dose: 20 mg Documented by: Furosemide (Furosemide 40 Mg/4 Ml Vial) 40 mg IVPUSH ONETIME ONE Stop: 02/23/21 16:01 Last Admin: 02/23/21 16:00 Dose: 40 mg Documented by: Furosemide (Furosemide 20 Mg Tab) 20 mg PO DAILY [facility] Last Admin: 03/03/21 10:17 Dose: 20 mg Documented by: Furosemide (Furosemide 20 Mg Tab) 20 mg PO BIDDIURETIC [facility] Last Admin: 03/04/21 08:31 Dose: 20 mg Documented by: Glucagon (Glucagon,Human Recombinant 1 Mg Vial) 1 mg IM Q15M PRN PRN Reason: Hypoglycemia Heparin Sodium (Porcine) (Heparin Sodium 5,000 Units/Ml Vial) 4,700 units IV ONETIME ONE Stop: 02/17/21 08:31 Last Admin: 02/17/21 08:34 Dose: 4,700 units Documented by: Heparin Sodium (Porcine) (Heparin Sodium 5,000 Units/Ml Vial) 1,000 units IVPUSH ONETIME ONE Stop: 02/17/21 22:56 Last Admin: 02/17/21 23:14 Dose: 1,000 units Documented by: Heparin Sodium (Porcine) (Heparin Sodium 5,000 Units/Ml Vial) 2,000 units IVPUSH .BOLUS ONE Stop: 02/18/21 09:18 Last Admin: 02/18/21 09:35 Dose: 2,000 units Documented by: Heparin Sodium (Porcine) (Heparin Sodium 5,000 Units/Ml Vial) 2,000 units IVPUSH ONETIME ONE Stop: 02/18/21 22:43 Last Admin: 02/18/21 22:55 Dose: 2,000 units Documented by: Sodium Chloride (Normal Saline) 1,000 mls @ 999 mls/hr IV .BOLUS ONE Stop: 02/16/21 15:00 Last Admin: 02/16/21 17:42 Dose: 999 mls/hr Documented by: Albumin Human (Buminate 5%) 250 mls @ 250 mls/hr IV ASDIRECTED ERIN Last Admin: 02/16/21 15:01 Dose: 250 mls/hr Documented by: Sodium Bicarbonate 100 meq/ (Dextrose/Water) 1,100 mls @ 100 mls/hr IV ONETIME ONE Stop: 02/17/21 02:02 Last Admin: 02/16/21 15:18 Dose: 100 mls/hr Documented by: Insulin Regular in 0.9 % NACL (Myxredlin In Ns 100 Unit/100 Ml) 100 unit in 100 mls @ 7.82 mls/hr IV TITRATE ERIN; Protocol Sodium Bicarbonate 100 meq/ (Dextrose/Water) 1,100 mls @ 999 mls/hr IV ONETIME ONE Stop: 02/16/21 18:27 Last Admin: 02/16/21 22:50 Dose: Not Given Documented by: Sodium Chloride (Normal Saline) 1,000 mls @ 250 mls/hr IV ASDIRECTED ERIN Insulin Regular in 0.9 % NACL (Myxredlin In Ns 100 Unit/100 Ml) 100 unit in 100 mls @ 7.82 mls/hr IV TITRATE ERIN; Protocol Last Titration: 02/17/21 02:36 Dose: 0 units/kg/hr, 0 mls/hr Documented by: Levofloxacin/Dextrose 500 mg/ (Premix) 100 mls @ 100 mls/hr IV Q24H ERIN Last Admin: 02/16/21 20:54 Dose: 100 mls/hr Documented by: Sodium Chloride (Normal Saline) 1,000 mls @ 1,000 mls/hr IV ASDIRECTED ERIN Stop: 02/16/21 19:59 Last Admin: 02/16/21 19:02 Dose: 1,000 mls/hr Documented by: Potassium Chloride/Sodium Chloride (Normal Saline With 40 Meq Kcl) 1,000 mls @ 250 mls/hr IV ASDIRECTED [facility] Last Admin: 02/17/21 01:48 Dose: 250 mls/hr Documented by: Sodium Bicarbonate 100 meq/ (Dextrose/Water) 1,100 mls @ 150 mls/hr IV ONETIME ONE Stop: 02/17/21 10:39 Last Infusion: 02/17/21 07:55 Dose: 50 mls/hr Documented by: Heparin Sodium/Sodium Chloride (Heparin 25,000 Units In 1/2 Ns 500 Ml) 25,000 units in 500 mls @ 18.768 mls/hr IV TITRATE ERIN; Protocol Last Admin: 02/19/21 03:31 Dose: 22 units/kg/hr, 34.408 mls/hr Documented by: Levofloxacin/Dextrose 500 mg/ (Premix) 100 mls @ 100 mls/hr IV Q48H [facility] Last Admin: 02/18/21 17:21 Dose: 100 mls/hr Documented by: Lactated Ringer's (Ringers, Lactated) 1,000 mls @ 125 mls/hr IV ASDIRECTED [facility] Last Admin: 02/19/21 05:45 Dose: 125 mls/hr Documented by: Levofloxacin/Dextrose 750 mg/ (Premix) 150 mls @ 100 mls/hr IV Q24H [facility] Stop: 02/21/21 11:01 Last Admin: 02/21/21 11:15 Dose: 100 mls/hr Documented by: Potassium Chloride 20 meq/ (Premix) 100 mls @ 50 mls/hr IV ONETIME ONE Stop: 02/20/21 09:22 Last Admin: 02/20/21 08:00 Dose: 50 mls/hr Documented by: Calcium Gluconate 1 gm/ Sodium (Chloride) 110 mls @ 110 mls/hr IV ONETIME ONE Stop: 02/20/21 08:29 Last Admin: 02/20/21 08:14 Dose: 110 mls/hr Documented by: Albumin Human 50 gm/ Premix 200 mls @ 100 mls/hr IV NOW ONE Stop: 02/23/21 13:21 Last Admin: 02/23/21 12:12 Dose: 100 mls/hr Documented by: Insulin Glargine (Insulin Glarg,Human.Rec.Analog 100 Unit/Ml) 35 unit SUBCUT ONETIME ONE Stop: 02/17/21 04:13 Last Admin: 02/17/21 04:28 Dose: 35 units Documented by: Insulin Glargine (Insulin Glarg,Human.Rec.Analog 100 Unit/Ml) 20 unit SUBCUT ONETIME ONE Stop: 02/19/21 09:23 Last Admin: 02/19/21 09:57 Dose: 20 units Documented by: Insulin Glargine (Insulin Glarg,Human.Rec.Analog 100 Unit/Ml) 40 unit SUBCUT BEDTIME [facility] Last Admin: 02/19/21 21:47 Dose: 40 units Documented by: Insulin Human Lispro (Insulin Lispro 100 Units/Ml 3 Ml Vial) 5 unit SUBCUT ONETIME ONE Stop: 02/17/21 04:15 Last Admin: 02/17/21 04:29 Dose: 5 units Documented by: Insulin Human Lispro (Insulin Lispro 100 Units/Ml 3 Ml Vial) 0 unit SUBCUT WITHMEALSANDBED [facility]; Protocol Last Admin: 02/18/21 09:04 Dose: Not Given Documented by: Insulin Human Lispro (Insulin Lispro 100 Units/Ml 3 Ml Vial) 14 unit SUBCUT ONETIME ONE Stop: 02/19/21 12:27 Last Admin: 02/19/21 12:36 Dose: Not Given Documented by: Insulin Human Lispro (Insulin Lispro 100 Units/Ml 3 Ml Vial) 12 unit SUBCUT ONETIME ONE Stop: 02/19/21 12:27 Last Admin: 02/19/21 12:41 Dose: 12 units Documented by: Insulin Human Regular (Insulin Regular, Human 100 Units/Ml 3 Ml Vial) 5 unit IV ONETIME ONE Stop: 02/16/21 14:22 Last Admin: 02/16/21 14:59 Dose: 5 unit Documented by: Insulin Human Regular (Insulin Regular, Human 100 Units/Ml 3 Ml Vial) 10 unit IV STAT STA Stop: 02/16/21 17:11 Last Admin: 02/16/21 17:19 Dose: 10 units Documented by: Insulin Human Regular (Insulin Regular, Human 100 Units/Ml 3 Ml Vial) 10 unit IV ONETIME ONE Stop: 02/16/21 18:13 Last Admin: 02/16/21 18:14 Dose: 10 units Documented by: Lisinopril (Lisinopril 5 Mg Tab) 2.5 mg PO DAILY ER[facility] Metolazone (Metolazone 2.5 Mg Tab) 5 mg PO ONETIME ONE Stop: 02/27/21 06:01 Last Admin: 02/27/21 06:07 Dose: 5 mg Documented by: Nitroglycerin (Nitroglycerin 0.4 Mg Tab.Sl) 0.4 mg SL ONETIME ONE Stop: 02/18/21 15:41 Last Admin: 02/18/21 15:47 Dose: 0.4 mg Documented by: Nystatin (Nystatin Topical Powder 30 Gm Bottle) 0 gm TOP Q8H [facility] Last Admin: 02/19/21 03:43 Dose: 1 applic Documented by: Nystatin (Nystatin Topical Powder 30 Gm Bottle) 0 gm TOP Q8HR [facility] Last Admin: 02/28/21 22:12 Dose: 1 applic Documented by: Potassium Chloride (Potassium Chloride 10 Meq Tab.Er) 40 meq PO ONETIME ONE Stop: 02/17/21 03:20 Last Admin: 02/17/21 07:20 Dose: Not Given Documented by: Potassium Chloride (Potassium Chloride 10 Meq Tab.Er) 40 meq PO ONETIME ONE Stop: 02/17/21 07:52 Last Admin: 02/17/21 08:43 Dose: 40 meq Documented by: Potassium Chloride (Potassium Chloride 10% 20 Meq/15 Ml Soln 15 Ml Ud Cup) 40 meq PO ONETIME ONE Stop: 02/17/21 17:01 Last Admin: 02/17/21 17:41 Dose: 40 meq Documented by: Potassium Chloride (Potassium Chloride 10 Meq Tab.Er) 20 meq PO DAILY [facility] Sodium Bicarbonate (Sodium Bicarbonate 8.4% 50 Meq/50 Ml Syringe) 50 meq IVPUSH ONETIME ONE Stop: 02/16/21 15:04 Last Admin: 02/16/21 15:08 Dose: 50 meq Documented by: Sodium Bicarbonate (Sodium Bicarbonate 8.4% 50 Meq/50 Ml Syringe) 100 meq IVPUSH ONETIME ONE Stop: 02/16/21 17:24 Last Admin: 02/16/21 17:49 Dose: 100 meq Documented by: Zolpidem Tartrate (Zolpidem 5 Mg Tab) 5 mg PO ONETIME ONE Stop: 02/18/21 22:06 Last Admin: 02/18/21 22:17 Dose: 5 mg Documented by: Zolpidem Tartrate (Zolpidem 5 Mg Tab) 5 mg PO ONETIME ONE Stop: 02/20/21 00:18 Last Admin: 02/20/21 00:38 Dose: 5 mg Documented by: Comments:: blood glucose 168 this am // k 3.3 - Exam Quality Assessment: Supplemental Oxygen Urinary Catheter Total Time: 2Days 13Hours General: Alert, Oriented HEENT: Pupils Equal, Pupils Reactive, EOMI, Mucous Membr. Moist/Fleming Neck: Supple Lungs: Decreased Breath Sounds, Other Cardiovascular: Irregular Rhythm GI/Abdominal Exam: Normal Bowel Sounds, Soft, Non-Tender, No Organomegaly, No Distention, No Abnormal Bruit, No Mass, Pelvis Stable Extremities: Pedal Edema, Joint Swelling, Leg Pain, Limited Range of Motion Skin: Intact, Cool Wound/Incisions: Healing Well Neurological: No New Focal Deficit Psy/Mental Status: Alert, Normal Affect, Normal Mood - Patient Data Lab Results Last 24 hrs: Laboratory Results - last 24 hr 03/04/21 03/04/21 03/05/21 Range/Units 16:45 19:41 06:10 Sodium 146 H (136-145) mmol/L Potassium 3.3 L (3.5-5.1) mmol/L Chloride 109 H (98-107) mmol/L Carbon Dioxide 31 (21-32) mmol/L Anion Gap 9.3 (7-13) mEq/L BUN 13 (7-18) mg/dL Creatinine 0.72 (0.55-1.02) mg/dL Est Cr Clr Drug Dosing 71.71 mL/min Estimated GFR (MDRD) > 60 Glucose 169 H (70-99) mg/dL POC Glucose 276 H 289 H (70-99) mg/dL Calcium 8.0 L (8.5-10.1) mg/dL 03/05/21 03/05/21 Range/Units 07:31 11:29 Sodium (136-145) mmol/L Potassium (3.5-5.1) mmol/L Chloride (98-107) mmol/L Carbon Dioxide (21-32) mmol/L Anion Gap (7-13) mEq/L BUN (7-18) mg/dL Creatinine (0.55-1.02) mg/dL Est Cr Clr Drug Dosing mL/min Estimated GFR (MDRD) Glucose (70-99) mg/dL POC Glucose 130 H 153 H (70-99) mg/dL Calcium (8.5-10.1) mg/dL Result Diagrams: 03/04/21 06:05 03/05/21 06:10 Sepsis Event Note - Evaluation Sepsis Screening Result: No Definite Risk - Focused Exam Vital Signs: Vital Signs Temp Pulse Pulse Resp BP BP Pulse Ox 03/05/21 12:00 36.4 C 70 18 117/75 93 L 03/05/21 08:27 70 127/68 03/05/21 07:43 35.6 C L 68 20 127/58 L 98 03/05/21 04:00 36.8 C 74 16 120/61 95 - Problem List & Annotations (1) Congestive heart failure SNOMED Code(s): 43319678 Code(s): I50.9 - HEART FAILURE, UNSPECIFIED Status: Acute Priority: Medium Current Visit: Yes Onset Date: ~03/05/21 Qualifiers: Heart failure type: combined systolic and diastolic Heart failure chronicity: acute on chronic Qualified Code(s): I50.43 - Acute on chronic combined systolic (congestive) and diastolic (congestive) heart failure (2) Elevated brain natriuretic peptide (BNP) level SNOMED Code(s): 698895576, 986840964 Code(s): R79.89 - OTHER SPECIFIED ABNORMAL FINDINGS OF BLOOD CHEMISTRY Status: Acute Priority: Medium Current Visit: Yes Onset Date: ~03/05/21 Annotation/Comment:: b.s 168 no ketosis (3) Failure to thrive SNOMED Code(s): 62998079 Code(s): MOJ3341 - Status: Acute Priority: Medium Current Visit: Yes Onset Date: ~03/05/21 Qualifiers: Failure to thrive age range: in adult Qualified Code(s): R62.7 - Adult failure to thrive (4) CHF exacerbation SNOMED Code(s): 585909653, 89475554080513 Code(s): I50.9 - HEART FAILURE, UNSPECIFIED Status: Chronic Priority: Medium Current Visit: Yes Qualifiers: Heart failure type: combined systolic and diastolic Qualified Code(s): I50.43 - Acute on chronic combined systolic (congestive) and diastolic (congestive) heart failure (5) DKA (diabetic ketoacidosis) SNOMED Code(s): 196367010, 233323780 Code(s): E11.10 - TYPE 2 DIABETES MELLITUS WITH KETOACIDOSIS WITHOUT COMA Status: Chronic Current Visit: Yes Qualifiers: Diabetes mellitus type: type 2 Diabetes mellitus complication detail: wit hout coma Qualified Code(s): E11.10 - Type 2 diabetes mellitus with ketoa cidosis without coma (6) Weakness SNOMED Code(s): 50542930 Code(s): R53.1 - WEAKNESS Status: Chronic Priority: High Current Visit: No Onset Date: ~03/05/21 Annotation/Comment:: non ambulitory sec to weakness and oa and neuropathy . also deconditioning. - Problem List Review Problem List Initiated/Reviewed/Updated: Yes - My Orders Last 24 Hours: My Active Orders 03/05/21 Lunch Fluid Restriction [DIET] Sodium Restricted Diet [DIET] - Assessment Assessment:: Assessment: presented with unresponsiveness, noted to have severe DKA - acute coronary syndrome, resolved treat CAD with asa, Plavix cont coreg, zetia, lisinopril - Acute on chronic congestive heart failure, unknown type, most likely systolic predominant Will need echo after discharge to further characterize Still has significant LE edema Treat with coreg, Started Lasix, will increase dose today and switch to IV Follow for need for K supplement recheck elytes in AM and replace them as needed. renal status stable creatinine. alb low and adding to edema ./ eating well b.s better control on sliding scale and added back metformin . extra k given today for added diuresis. check mag. no chest pain symptoms . rate controllled on coreg. malnutrition may involve passive liver congestion // fluid restriction restarted sec to b.p increased and no change in weight. cont i.v lasix today consider spironolactone. echo of heart as outpatient . anemia stable . cognitive needs supervision boh - Plan Plan:: reviewed care plan with team / awaiting n.h placement as she is non ambulitory and using thang lift. family cannot care for her. ongoing diuresis try to get her into compression stocking and therapy ? managment of diabetes. man of chf.ongoing lasix i.v.. consider spironolactone. maybe entresto if echo supportive. cad stable . anemia stable boh
[2021-03-05] MEDS: Insulin Glarg,Human.Rec.Analog 100 Unit/ML SUBCUT SCH (20:55)
[2021-03-05] MEDS: Ezetimibe 10 MG Tab PO SCH (20:58)
[2021-03-05] MEDS: Zolpidem 5 MG Tab PO PRN (21:04)
[2021-03-06] MEDS: Furosemide 20 MG/2 ML VIAL IVPUSH SCH ×4 (05:54→22:29)
[2021-03-06] MEDS: Insulin Lispro 100 Units/ML 3 ML Vial SUBCUT SCH ×4 (08:23→20:46)
[2021-03-06] MEDS: Clopidogrel 75 MG Tab PO SCH (08:27)
[2021-03-06] MEDS: Carvedilol 3.125 MG Tab PO SCH ×2 (08:27→17:09)
[2021-03-06] MEDS: Aspirin 81 MG Tab.EC PO SCH (08:28)
[2021-03-06] MEDS: Lisinopril 10 MG Tab PO SCH (08:28)
[2021-03-06] MEDS: Enoxaparin 40 MG/0.4 ML Syringe SUBCUT SCH (08:28)
[2021-03-06] MEDS: Ferrous Sulfate 325 MG Tab PO SCH (08:30)
--- NOTE | 2021-03-06 19:00 | PCM.PN ---
- General Info Date of Service: 03/06/21 Admission Dx/Problem (Free Text): Admission Diagnosis/Problem Admission Diagnosis/Problem Diabetic ketoacidosis with coma Subjective Update: Coreen states she is feeling very well and has no pain or complaints at this time. She denies chest pain, shortness of breath, nausea, vomiting, diarrhea, leg edema. Functional Status: Reports: Pain Controlled, Tolerating Diet. Denies: Ambulating - Review of Systems General: Reports: No Symptoms HEENT: Reports: No Symptoms Pulmonary: Reports: No Symptoms Cardiovascular: Reports: No Symptoms Gastrointestinal: Reports: No Symptoms Musculoskeletal: Reports: No Symptoms Skin: Reports: No Symptoms Neurological: Reports: No Symptoms Psychiatric: Reports: No Symptoms - Patient Data Vitals - Most Recent: Last Vital Signs Temp 98.1 F 03/06/21 16:17 Pulse 76 03/06/21 17:09 Resp 20 03/06/21 16:17 BP 147/83 H 03/06/21 17:09 Pulse Ox 94 L 03/06/21 16:17 Weight - Most Recent: 178 lb I&O - Last 24 Hours: Intake & Output 03/06/21 03/06/21 03/06/21 06:59 14:59 22:59 Intake Total 50 500 200 Balance 50 500 200 Lab Results Last 24 Hours: Laboratory Results - last 24 hr 03/05/21 03/06/21 03/06/21 Range/Units 20:35 07:33 11:34 POC Glucose 327 H 173 H 217 H (70-99) mg/dL 03/06/21 Range/Units 16:59 POC Glucose 228 H (70-99) mg/dL Med Orders - Current: Current Medications Acetaminophen (Acetaminophen 500 Mg Tab) 500 mg PO Q4H PRN PRN Reason: Pain/Fever Last Admin: 03/04/21 23:44 Dose: 500 mg Documented by: Aspirin (Aspirin 81 Mg Tab.Ec) 81 mg PO DAILY [facility] Last Admin: 03/06/21 08:28 Dose: 81 mg Documented by: Carvedilol (Carvedilol 3.125 Mg Tab) 6.25 mg PO BIDMEALS [facility] Last Admin: 03/06/21 17:09 Dose: 6.25 mg Documented by: Clopidogrel Bisulfate (Clopidogrel 75 Mg Tab) 75 mg PO DAILY [facility] Last Admin: 03/06/21 08:27 Dose: 75 mg Documented by: Dextrose/Water (50% Dextrose In Water 50 Ml Syringe) 25 ml IVPUSH Q15M PRN PRN Reason: Hypoglycemia Last Admin: 02/28/21 08:35 Dose: 25 ml Documented by: Ezetimibe (Ezetimibe 10 Mg Tab) 10 mg PO BEDTIME [facility] Last Admin: 03/05/21 20:58 Dose: 10 mg Documented by: Enoxaparin Sodium (Enoxaparin 40 Mg/0.4 Ml Syringe) 40 mg SUBCUT DAILY [facility] Last Admin: 03/06/21 08:28 Dose: 40 mg Documented by: Ferrous Sulfate (Ferrous Sulfate 325 Mg Tab) 325 mg PO Q48H [facility] Last Admin: 03/06/21 08:30 Dose: 325 mg Documented by: Furosemide (Furosemide 20 Mg/2 Ml Vial) 20 mg IVPUSH Q8H [facility] Last Admin: 03/06/21 14:02 Dose: 20 mg Documented by: Glucagon (Glucagon,Human Recombinant 1 Mg Vial) 1 mg IM Q15M PRN PRN Reason: Hypoglycemia Insulin Glargine (Insulin Glarg,Human.Rec.Analog 100 Unit/Ml) 20 unit SUBCUT BEDTIME [facility] Last Admin: 03/05/21 20:55 Dose: 20 units Documented by: Insulin Human Lispro (Insulin Lispro 100 Units/Ml 3 Ml Vial) 0 unit SUBCUT WITHMEALSANDBED [facility]; Protocol Last Admin: 03/06/21 17:08 Dose: 4 units Documented by: Lisinopril (Lisinopril 10 Mg Tab) 10 mg PO DAILY [facility] Last Admin: 03/06/21 08:28 Dose: 10 mg Documented by: Melatonin (Melatonin 3 Mg Tab) 6 mg PO BEDTIME PRN PRN Reason: Sleep Last Admin: 02/22/21 21:29 Dose: 6 mg Documented by: Nystatin (Nystatin Topical Powder 30 Gm Bottle) 1 gm TOP Q8H PRN PRN Reason: Rash Zolpidem Tartrate (Zolpidem 5 Mg Tab) 5 mg PO BEDTIME PRN PRN Reason: Sleep Last Admin: 03/05/21 21:04 Dose: 5 mg Documented by: Discontinued Medications COVID-19 Vaccine mRNA LNP-S (PFR) (PF) (Covid-19 Vacc, Mrna(Pfizer)/Pf 30 Mcg/0.3 Ml Vial) 30 mcg IM .ONCE ONE Stop: 02/25/21 16:21 Last Admin: 02/25/21 17:11 Dose: Not Given Documented by: Carvedilol (Carvedilol 6.25 Mg Tab) 6.25 mg PO ONETIME ONE Stop: 02/19/21 12:28 Last Admin: 02/19/21 12:36 Dose: Not Given Documented by: Carvedilol (Carvedilol 3.125 Mg Tab) 3.125 mg PO BIDMEALS [facility] Last Admin: 02/28/21 09:52 Dose: 3.125 mg Documented by: Clopidogrel Bisulfate (Clopidogrel 75 Mg Tab) 225 mg PO ONETIME STA Stop: 02/17/21 11:11 Last Admin: 02/17/21 11:24 Dose: 225 mg Documented by: Dextrose/Water (50% Dextrose In Water 50 Ml Syringe) 50 ml IVPUSH Q15M PRN PRN Reason: Hypoglycemia Dextrose/Water (50% Dextrose In Water 50 Ml Syringe) 50 ml IVPUSH Q15M PRN PRN Reason: Hypoglycemia Dextrose/Water (50% Dextrose In Water 50 Ml Syringe) 50 ml IVPUSH Q15M PRN PRN Reason: Hypoglycemia Dextrose/Water (50% Dextrose In Water 50 Ml Syringe) Confirm Administered Dose 50 ml .ROUTE .STK-MED ONE Stop: 02/20/21 07:41 Last Admin: 02/20/21 08:14 Dose: Not Given Documented by: Dextrose/Water (50% Dextrose In Water 50 Ml Syringe) 50 ml IVPUSH ONETIME ONE Stop: 02/26/21 07:46 Last Admin: 02/26/21 07:45 Dose: 50 ml Documented by: Furosemide (Furosemide 20 Mg/2 Ml Vial) 20 mg IVPUSH ONETIME ONE Stop: 02/16/21 15:51 Last Admin: 02/16/21 15:54 Dose: 20 mg Documented by: Furosemide (Furosemide 40 Mg/4 Ml Vial) 40 mg IVPUSH ONETIME ONE Stop: 02/23/21 16:01 Last Admin: 02/23/21 16:00 Dose: 40 mg Documented by: Furosemide (Furosemide 20 Mg Tab) 20 mg PO DAILY [facility] Last Admin: 03/03/21 10:17 Dose: 20 mg Documented by: Furosemide (Furosemide 20 Mg Tab) 20 mg PO BIDDIURETIC [facility] Last Admin: 03/04/21 08:31 Dose: 20 mg Documented by: Glucagon (Glucagon,Human Recombinant 1 Mg Vial) 1 mg IM Q15M PRN PRN Reason: Hypoglycemia Heparin Sodium (Porcine) (Heparin Sodium 5,000 Units/Ml Vial) 4,700 units IV ONETIME ONE Stop: 02/17/21 08:31 Last Admin: 02/17/21 08:34 Dose: 4,700 units Documented by: Heparin Sodium (Porcine) (Heparin Sodium 5,000 Units/Ml Vial) 1,000 units IVPUSH ONETIME ONE Stop: 02/17/21 22:56 Last Admin: 02/17/21 23:14 Dose: 1,000 units Documented by: Heparin Sodium (Porcine) (Heparin Sodium 5,000 Units/Ml Vial) 2,000 units IVPUSH .BOLUS ONE Stop: 02/18/21 09:18 Last Admin: 02/18/21 09:35 Dose: 2,000 units Documented by: Heparin Sodium (Porcine) (Heparin Sodium 5,000 Units/Ml Vial) 2,000 units IVPUSH ONETIME ONE Stop: 02/18/21 22:43 Last Admin: 02/18/21 22:55 Dose: 2,000 units Documented by: Sodium Chloride (Normal Saline) 1,000 mls @ 999 mls/hr IV .BOLUS ONE Stop: 02/16/21 15:00 Last Admin: 02/16/21 17:42 Dose: 999 mls/hr Documented by: Albumin Human (Buminate 5%) 250 mls @ 250 mls/hr IV ASDIRECTED [facility] Last Admin: 02/16/21 15:01 Dose: 250 mls/hr Documented by: Sodium Bicarbonate 100 meq/ (Dextrose/Water) 1,100 mls @ 100 mls/hr IV ONETIME ONE Stop: 02/17/21 02:02 Last Admin: 02/16/21 15:18 Dose: 100 mls/hr Documented by: Insulin Regular in 0.9 % NACL (Myxredlin In Ns 100 Unit/100 Ml) 100 unit in 100 mls @ 7.82 mls/hr IV TITRATE ERIN; Protocol Sodium Bicarbonate 100 meq/ (Dextrose/Water) 1,100 mls @ 999 mls/hr IV ONETIME ONE Stop: 02/16/21 18:27 Last Admin: 02/16/21 22:50 Dose: Not Given Documented by: Sodium Chloride (Normal Saline) 1,000 mls @ 250 mls/hr IV ASDIRECTED ERIN Insulin Regular in 0.9 % NACL (Myxredlin In Ns 100 Unit/100 Ml) 100 unit in 100 mls @ 7.82 mls/hr IV TITRATE ERIN; Protocol Last Titration: 02/17/21 02:36 Dose: 0 units/kg/hr, 0 mls/hr Documented by: Levofloxacin/Dextrose 500 mg/ (Premix) 100 mls @ 100 mls/hr IV Q24H ERIN Last Admin: 02/16/21 20:54 Dose: 100 mls/hr Documented by: Sodium Chloride (Normal Saline) 1,000 mls @ 1,000 mls/hr IV ASDIRECTED ERIN Stop: 02/16/21 19:59 Last Admin: 02/16/21 19:02 Dose: 1,000 mls/hr Documented by: Potassium Chloride/Sodium Chloride (Normal Saline With 40 Meq Kcl) 1,000 mls @ 250 mls/hr IV ASDIRECTED [facility]IN Last Admin: 02/17/21 01:48 Dose: 250 mls/hr Documented by: Sodium Bicarbonate 100 meq/ (Dextrose/Water) 1,100 mls @ 150 mls/hr IV ONETIME ONE Stop: 02/17/21 10:39 Last Infusion: 02/17/21 07:55 Dose: 50 mls/hr Documented by: Heparin Sodium/Sodium Chloride (Heparin 25,000 Units In 1/2 Ns 500 Ml) 25,000 units in 500 mls @ 18.768 mls/hr IV TITRATE ERIN; Protocol Last Admin: 02/19/21 03:31 Dose: 22 units/kg/hr, 34.408 mls/hr Documented by: Levofloxacin/Dextrose 500 mg/ (Premix) 100 mls @ 100 mls/hr IV Q48H ERIN Last Admin: 02/18/21 17:21 Dose: 100 mls/hr Documented by: Lactated Ringer's (Ringers, Lactated) 1,000 mls @ 125 mls/hr IV ASDIRECTED [facility]IN Last Admin: 02/19/21 05:45 Dose: 125 mls/hr Documented by: Levofloxacin/Dextrose 750 mg/ (Premix) 150 mls @ 100 mls/hr IV Q24H ERIN Stop: 02/21/21 11:01 Last Admin: 02/21/21 11:15 Dose: 100 mls/hr Documented by: Potassium Chloride 20 meq/ (Premix) 100 mls @ 50 mls/hr IV ONETIME ONE Stop: 02/20/21 09:22 Last Admin: 02/20/21 08:00 Dose: 50 mls/hr Documented by: Calcium Gluconate 1 gm/ Sodium (Chloride) 110 mls @ 110 mls/hr IV ONETIME ONE Stop: 02/20/21 08:29 Last Admin: 02/20/21 08:14 Dose: 110 mls/hr Documented by: Albumin Human 50 gm/ Premix 200 mls @ 100 mls/hr IV NOW ONE Stop: 02/23/21 13:21 Last Admin: 02/23/21 12:12 Dose: 100 mls/hr Documented by: Insulin Glargine (Insulin Glarg,Human.Rec.Analog 100 Unit/Ml) 35 unit SUBCUT ONETIME ONE Stop: 02/17/21 04:13 Last Admin: 02/17/21 04:28 Dose: 35 units Documented by: Insulin Glargine (Insulin Glarg,Human.Rec.Analog 100 Unit/Ml) 20 unit SUBCUT ONETIME ONE Stop: 02/19/21 09:23 Last Admin: 02/19/21 09:57 Dose: 20 units Documented by: Insulin Glargine (Insulin Glarg,Human.Rec.Analog 100 Unit/Ml) 40 unit SUBCUT BEDTIME [facility] Last Admin: 02/19/21 21:47 Dose: 40 units Documented by: Insulin Human Lispro (Insulin Lispro 100 Units/Ml 3 Ml Vial) 5 unit SUBCUT ONETIME ONE Stop: 02/17/21 04:15 Last Admin: 02/17/21 04:29 Dose: 5 units Documented by: Insulin Human Lispro (Insulin Lispro 100 Units/Ml 3 Ml Vial) 0 unit SUBCUT WITHMEALSANDBED [facility]; Protocol Last Admin: 02/18/21 09:04 Dose: Not Given Documented by: Insulin Human Lispro (Insulin Lispro 100 Units/Ml 3 Ml Vial) 14 unit SUBCUT ONETIME ONE Stop: 02/19/21 12:27 Last Admin: 02/19/21 12:36 Dose: Not Given Documented by: Insulin Human Lispro (Insulin Lispro 100 Units/Ml 3 Ml Vial) 12 unit SUBCUT ONETIME ONE Stop: 02/19/21 12:27 Last Admin: 02/19/21 12:41 Dose: 12 units Documented by: Insulin Human Regular (Insulin Regular, Human 100 Units/Ml 3 Ml Vial) 5 unit IV ONETIME ONE Stop: 02/16/21 14:22 Last Admin: 02/16/21 14:59 Dose: 5 unit Documented by: Insulin Human Regular (Insulin Regular, Human 100 Units/Ml 3 Ml Vial) 10 unit IV STAT STA Stop: 02/16/21 17:11 Last Admin: 02/16/21 17:19 Dose: 10 units Documented by: Insulin Human Regular (Insulin Regular, Human 100 Units/Ml 3 Ml Vial) 10 unit IV ONETIME ONE Stop: 02/16/21 18:13 Last Admin: 02/16/21 18:14 Dose: 10 units Documented by: Lisinopril (Lisinopril 5 Mg Tab) 2.5 mg PO DAILY ERIN Metolazone (Metolazone 2.5 Mg Tab) 5 mg PO ONETIME ONE Stop: 02/27/21 06:01 Last Admin: 02/27/21 06:07 Dose: 5 mg Documented by: Nitroglycerin (Nitroglycerin 0.4 Mg Tab.Sl) 0.4 mg SL ONETIME ONE Stop: 02/18/21 15:41 Last Admin: 02/18/21 15:47 Dose: 0.4 mg Documented by: Nystatin (Nystatin Topical Powder 30 Gm Bottle) 0 gm TOP Q8H [facility] Last Admin: 02/19/21 03:43 Dose: 1 applic Documented by: Nystatin (Nystatin Topical Powder 30 Gm Bottle) 0 gm TOP Q8HR [facility] Last Admin: 02/28/21 22:12 Dose: 1 applic Documented by: Potassium Chloride (Potassium Chloride 10 Meq Tab.Er) 40 meq PO ONETIME ONE Stop: 02/17/21 03:20 Last Admin: 02/17/21 07:20 Dose: Not Given Documented by: Potassium Chloride (Potassium Chloride 10 Meq Tab.Er) 40 meq PO ONETIME ONE Stop: 02/17/21 07:52 Last Admin: 02/17/21 08:43 Dose: 40 meq Documented by: Potassium Chloride (Potassium Chloride 10% 20 Meq/15 Ml Soln 15 Ml Ud Cup) 40 meq PO ONETIME ONE Stop: 02/17/21 17:01 Last Admin: 02/17/21 17:41 Dose: 40 meq Documented by: Potassium Chloride (Potassium Chloride 10 Meq Tab.Er) 20 meq PO DAILY [facility] Sodium Bicarbonate (Sodium Bicarbonate 8.4% 50 Meq/50 Ml Syringe) 50 meq IVPUSH ONETIME ONE Stop: 02/16/21 15:04 Last Admin: 02/16/21 15:08 Dose: 50 meq Documented by: Sodium Bicarbonate (Sodium Bicarbonate 8.4% 50 Meq/50 Ml Syringe) 100 meq IVPUSH ONETIME ONE Stop: 02/16/21 17:24 Last Admin: 02/16/21 17:49 Dose: 100 meq Documented by: Zolpidem Tartrate (Zolpidem 5 Mg Tab) 5 mg PO ONETIME ONE Stop: 02/18/21 22:06 Last Admin: 02/18/21 22:17 Dose: 5 mg Documented by: Zolpidem Tartrate (Zolpidem 5 Mg Tab) 5 mg PO ONETIME ONE Stop: 02/20/21 00:18 Last Admin: 02/20/21 00:38 Dose: 5 mg Documented by: - Exam Quality Assessment: No: Supplemental Oxygen Urinary Catheter Total Time: 2Days 13Hours General: Alert, Oriented Lungs: Clear to Auscultation, Normal Respiratory Effort Cardiovascular: Regular Rate, Regular Rhythm Extremities: Normal Inspection, Normal Range of Motion, Non-Tender, No Pedal Edema, Normal Capillary Refill Skin: Warm, Dry, Intact Psy/Mental Status: Alert, Normal Affect, Normal Mood - Patient Data Lab Results Last 24 hrs: Laboratory Results - last 24 hr 03/05/21 03/06/21 03/06/21 Range/Units 20:35 07:33 11:34 POC Glucose 327 H 173 H 217 H (70-99) mg/dL 03/06/21 Range/Units 16:59 POC Glucose 228 H (70-99) mg/dL Result Diagrams: 03/04/21 06:05 03/05/21 06:10 Sepsis Event Note - Evaluation Sepsis Screening Result: No Definite Risk - Focused Exam Vital Signs: Vital Signs Temp Pulse Pulse Resp BP BP BP 03/06/21 17:09 76 147/83 H 03/06/21 16:17 98.1 F 76 20 147/83 H 03/06/21 11:44 97.2 F 72 16 120/63 11/04/21 08:28 151/74 H 03/06/21 08:27 74 151/74 H 03/06/21 07:40 96.0 F L 74 20 151/74 H Pulse Ox 03/06/21 17:09 03/06/21 16:17 94 L 03/06/21 11:44 95 03/06/21 08:28 03/06/21 08:27 03/06/21 07:40 93 L - Problem List & Annotations (1) Failure to thrive SNOMED Code(s): 68578654 Code(s): PCZ8020 - Status: Acute Priority: Medium Current Visit: Yes Onset Date: ~03/05/21 Qualifiers: Failure to thrive age range: in adult Qualified Code(s): R62.7 - Adult failure to thrive (2) Diabetes mellitus SNOMED Code(s): 51522853 Code(s): E11.9 - TYPE 2 DIABETES MELLITUS WITHOUT COMPLICATIONS Status: Acute Current Visit: Yes Qualifiers: Diabetes mellitus type: type 2 Diabetes mellitus complication status: without complication - Problem List Review Problem List Initiated/Reviewed/Updated: Yes - Assessment Assessment:: Assessment: -Failure to thrive Patient's family unwilling to start Medicaid process and patient is unwilling as well. A care conference scheduled tomorrow at 10 AM. Discussed this meeting with patient, she was unaware of time, but is excited for the meeting tomorrow. - Uncontrolled type 2 diabetes mellitus, insulin-dependent Increase Lantus from 20 to 24 units at night Added 2 units prandial with meals, 3 times daily Continue with sliding scale insulin Continue lisinopril Hypoglycemia protocol - acute coronary syndrome, resolved treat CAD with asa, Plavix cont coreg, zetia, lisinopril - Acute on chronic congestive heart failure Will need echo after discharge to further characterize Still has significant LE edema Treat with coreg, Follow for need for K supplement replace as needed - DKA with unresponsiveness Resolved - Hypernatremia Stable - Past history of cerebrovascular accident Weakness Cont pt/ot as tolerated Nursing is watching her skin carefully for signs of breakdown - VTE prophylaxis: Is on Lovenox -Diabetic diet - Discharge planning continues to work on finding alf placement for her
[2021-03-06] MEDS ORDERED: 50% Dextrose in Water 50 ML Syringe IVPUSH PRN (19:03)
[2021-03-06] MEDS ORDERED: Glucagon,Human Recombinant 1 MG Vial IM PRN (19:03)
[2021-03-06] MEDS: Melatonin 3 MG Tab PO PRN (20:48)
[2021-03-06] MEDS: Ezetimibe 10 MG Tab PO SCH (20:49)
[2021-03-06] MEDS: Zolpidem 5 MG Tab PO PRN (20:49)
[2021-03-06] MEDS ORDERED: Insulin Glarg,Human.Rec.Analog 100 Unit/ML SUBCUT SCH (21:00)
[2021-03-07] MEDS: Acetaminophen 500 MG Tab PO PRN ×2 (04:13→14:51)
[2021-03-07] MEDS: Furosemide 20 MG/2 ML VIAL IVPUSH SCH (05:58)
[2021-03-07 06:46] LABS: CHLORIDE,CL 107 mmol/L (98-107); SODIUM,NA 145 mmol/L (136-145)
[2021-03-07] MEDS: Aspirin 81 MG Tab.EC PO SCH (08:09)
[2021-03-07] MEDS: Lisinopril 10 MG Tab PO SCH (08:09)
[2021-03-07] MEDS: Clopidogrel 75 MG Tab PO SCH (08:09)
[2021-03-07] MEDS: Carvedilol 3.125 MG Tab PO SCH ×2 (08:10→17:28)
[2021-03-07] MEDS: Insulin Lispro 100 Units/ML 3 ML Vial SUBCUT SCH ×7 (08:11→21:09)
[2021-03-07] MEDS: Enoxaparin 40 MG/0.4 ML Syringe SUBCUT SCH (08:11)
[2021-03-07] MEDS: Potassium Chloride 10 MEQ Tab.ER PO SCH (08:24)
[2021-03-07] MEDS ORDERED: Furosemide 40 MG Tab PO SCH (09:00)
--- NOTE | 2021-03-07 11:39 | PCM.PN ---
- General Info Date of Service: 03/07/21 Admission Dx/Problem (Free Text): Admission Diagnosis/Problem Admission Diagnosis/Problem Diabetic ketoacidosis with coma Subjective Update: Coreen states she is feeling very well and has no pain or complaints at this time. She is a little upset that her blood glucose dropped this morning and claims the staff did not allow her to eat or drink overnight. She denies chest pain, shortness of breath, nausea, vomiting, diarrhea, leg edema. Functional Status: Reports: Pain Controlled - Review of Systems General: Reports: No Symptoms Pulmonary: Reports: No Symptoms Cardiovascular: Reports: No Symptoms. Denies: Edema Musculoskeletal: Reports: No Symptoms Skin: Reports: No Symptoms - Patient Data Vitals - Most Recent: Last Vital Signs Temp 97.2 F 03/07/21 07:43 Pulse 69 03/07/21 08:10 Resp 20 03/07/21 07:43 BP 142/79 H 03/07/21 08:10 Pulse Ox 97 03/07/21 07:43 Weight - Most Recent: 182 lb 4.8 oz I&O - Last 24 Hours: Intake & Output 03/06/21 03/07/21 03/07/21 22:59 06:59 14:59 Intake Total 440 100 Balance 440 100 Lab Results Last 24 Hours: Laboratory Results - last 24 hr 03/06/21 03/06/21 03/06/21 Range/Units 11:34 16:59 20:44 Sodium (136-145) mmol/L Potassium (3.5-5.1) mmol/L Chloride (98-107) mmol/L Carbon Dioxide (21-32) mmol/L Anion Gap (7-13) mEq/L BUN (7-18) mg/dL Creatinine (0.55-1.02) mg/dL Est Cr Clr Drug Dosing mL/min Estimated GFR (MDRD) Glucose (70-99) mg/dL POC Glucose 217 H 228 H 233 H (70-99) mg/dL Calcium (8.5-10.1) mg/dL 03/07/21 03/07/21 03/07/21 Range/Units 06:05 07:31 08:28 Sodium 145 (136-145) mmol/L Potassium 3.0 L (3.5-5.1) mmol/L Chloride 107 (98-107) mmol/L Carbon Dioxide 31 (21-32) mmol/L Anion Gap 10.0 (7-13) mEq/L BUN 14 (7-18) mg/dL Creatinine 0.75 (0.55-1.02) mg/dL Est Cr Clr Drug Dosing 68.84 mL/min Estimated GFR (MDRD) > 60 Glucose 52 L (70-99) mg/dL POC Glucose 47 L* 96 (70-99) mg/dL Calcium 8.3 L (8.5-10.1) mg/dL Med Orders - Current: Current Medications Acetaminophen (Acetaminophen 500 Mg Tab) 500 mg PO Q4H PRN PRN Reason: Pain/Fever Last Admin: 03/07/21 04:13 Dose: 500 mg Documented by: Aspirin (Aspirin 81 Mg Tab.Ec) 81 mg PO DAILY [facility] Last Admin: 03/07/21 08:09 Dose: 81 mg Documented by: Carvedilol (Carvedilol 3.125 Mg Tab) 6.25 mg PO BIDMEALS [facility] Last Admin: 03/07/21 08:10 Dose: 6.25 mg Documented by: Clopidogrel Bisulfate (Clopidogrel 75 Mg Tab) 75 mg PO DAILY [facility] Last Admin: 03/07/21 08:09 Dose: 75 mg Documented by: Dextrose/Water (50% Dextrose In Water 50 Ml Syringe) 25 ml IVPUSH Q15M PRN PRN Reason: Hypoglycemia Last Admin: 02/28/21 08:35 Dose: 25 ml Documented by: Dextrose/Water (50% Dextrose In Water 50 Ml Syringe) 50 ml IVPUSH Q15M PRN PRN Reason: Hypoglycemia Ezetimibe (Ezetimibe 10 Mg Tab) 10 mg PO BEDTIME [facility] Last Admin: 03/06/21 20:49 Dose: 10 mg Documented by: Enoxaparin Sodium (Enoxaparin 40 Mg/0.4 Ml Syringe) 40 mg SUBCUT DAILY [facility] Last Admin: 03/07/21 08:11 Dose: 40 mg Documented by: Ferrous Sulfate (Ferrous Sulfate 325 Mg Tab) 325 mg PO Q48H [facility] Last Admin: 03/06/21 08:30 Dose: 325 mg Documented by: Furosemide (Furosemide 40 Mg Tab) 40 mg PO DAILY [facility] Glucagon (Glucagon,Human Recombinant 1 Mg Vial) 1 mg IM Q15M PRN PRN Reason: Hypoglycemia Insulin Glargine (Insulin Glarg,Human.Rec.Analog 100 Unit/Ml) 20 unit SUBCUT BEDTIME [facility] Insulin Human Lispro (Insulin Lispro 100 Units/Ml 3 Ml Vial) 0 unit SUBCUT WITHMEALSANDBED [facility]; Protocol Last Admin: 03/07/21 08:11 Dose: Not Given Documented by: Insulin Human Lispro (Insulin Lispro 100 Units/Ml 3 Ml Vial) 2 unit SUBCUT TIDMEALS [facility] Last Admin: 03/07/21 08:25 Dose: Not Given Documented by: Lisinopril (Lisinopril 10 Mg Tab) 10 mg PO DAILY [facility] Last Admin: 03/07/21 08:09 Dose: 10 mg Documented by: Melatonin (Melatonin 3 Mg Tab) 6 mg PO BEDTIME PRN PRN Reason: Sleep Last Admin: 03/06/21 20:48 Dose: 6 mg Documented by: Nystatin (Nystatin Topical Powder 30 Gm Bottle) 1 gm TOP Q8H PRN PRN Reason: Rash Potassium Chloride (Potassium Chloride 10 Meq Tab.Er) 40 meq PO WITHBREAKFAST [facility] Stop: 03/11/21 08:16 Last Admin: 03/07/21 08:24 Dose: 40 meq Documented by: Zolpidem Tartrate (Zolpidem 5 Mg Tab) 5 mg PO BEDTIME PRN PRN Reason: Sleep Last Admin: 03/06/21 20:49 Dose: 5 mg Documented by: Discontinued Medications COVID-19 Vaccine mRNA LNP-S (PFR) (PF) (Covid-19 Vacc, Mrna(Pfizer)/Pf 30 Mcg/0.3 Ml Vial) 30 mcg IM .ONCE ONE Stop: 02/25/21 16:21 Last Admin: 02/25/21 17:11 Dose: Not Given Documented by: Carvedilol (Carvedilol 6.25 Mg Tab) 6.25 mg PO ONETIME ONE Stop: 02/19/21 12:28 Last Admin: 02/19/21 12:36 Dose: Not Given Documented by: Carvedilol (Carvedilol 3.125 Mg Tab) 3.125 mg PO BIDMEALS [facility] Last Admin: 02/28/21 09:52 Dose: 3.125 mg Documented by: Clopidogrel Bisulfate (Clopidogrel 75 Mg Tab) 225 mg PO ONETIME STA Stop: 02/17/21 11:11 Last Admin: 02/17/21 11:24 Dose: 225 mg Documented by: Dextrose/Water (50% Dextrose In Water 50 Ml Syringe) 50 ml IVPUSH Q15M PRN PRN Reason: Hypoglycemia Dextrose/Water (50% Dextrose In Water 50 Ml Syringe) 50 ml IVPUSH Q15M PRN PRN Reason: Hypoglycemia Dextrose/Water (50% Dextrose In Water 50 Ml Syringe) 50 ml IVPUSH Q15M PRN PRN Reason: Hypoglycemia Dextrose/Water (50% Dextrose In Water 50 Ml Syringe) Confirm Administered Dose 50 ml .ROUTE .STK-MED ONE Stop: 02/20/21 07:41 Last Admin: 02/20/21 08:14 Dose: Not Given Documented by: Dextrose/Water (50% Dextrose In Water 50 Ml Syringe) 50 ml IVPUSH ONETIME ONE Stop: 02/26/21 07:46 Last Admin: 02/26/21 07:45 Dose: 50 ml Documented by: Furosemide (Furosemide 20 Mg/2 Ml Vial) 20 mg IVPUSH ONETIME ONE Stop: 02/16/21 15:51 Last Admin: 02/16/21 15:54 Dose: 20 mg Documented by: Furosemide (Furosemide 40 Mg/4 Ml Vial) 40 mg IVPUSH ONETIME ONE Stop: 02/23/21 16:01 Last Admin: 02/23/21 16:00 Dose: 40 mg Documented by: Furosemide (Furosemide 20 Mg Tab) 20 mg PO DAILY [facility] Last Admin: 03/03/21 10:17 Dose: 20 mg Documented by: Furosemide (Furosemide 20 Mg Tab) 20 mg PO BIDDIURETIC [facility] Last Admin: 03/04/21 08:31 Dose: 20 mg Documented by: Furosemide (Furosemide 20 Mg/2 Ml Vial) 20 mg IVPUSH Q8H [facility] Last Admin: 03/07/21 05:58 Dose: 20 mg Documented by: Furosemide (Furosemide 40 Mg Tab) 40 mg PO DAILY [facility] Glucagon (Glucagon,Human Recombinant 1 Mg Vial) 1 mg IM Q15M PRN PRN Reason: Hypoglycemia Glucagon (Glucagon,Human Recombinant 1 Mg Vial) 1 mg IM Q15M PRN PRN Reason: Hypoglycemia Heparin Sodium (Porcine) (Heparin Sodium 5,000 Units/Ml Vial) 4,700 units IV ONETIME ONE Stop: 02/17/21 08:31 Last Admin: 02/17/21 08:34 Dose: 4,700 units Documented by: Heparin Sodium (Porcine) (Heparin Sodium 5,000 Units/Ml Vial) 1,000 units IVPUSH ONETIME ONE Stop: 02/17/21 22:56 Last Admin: 02/17/21 23:14 Dose: 1,000 units Documented by: Heparin Sodium (Porcine) (Heparin Sodium 5,000 Units/Ml Vial) 2,000 units IVPUSH .BOLUS ONE Stop: 02/18/21 09:18 Last Admin: 02/18/21 09:35 Dose: 2,000 units Documented by: Heparin Sodium (Porcine) (Heparin Sodium 5,000 Units/Ml Vial) 2,000 units IVPUSH ONETIME ONE Stop: 02/18/21 22:43 Last Admin: 02/18/21 22:55 Dose: 2,000 units Documented by: Sodium Chloride (Normal Saline) 1,000 mls @ 999 mls/hr IV .BOLUS ONE Stop: 02/16/21 15:00 Last Admin: 02/16/21 17:42 Dose: 999 mls/hr Documented by: Albumin Human (Buminate 5%) 250 mls @ 250 mls/hr IV ASDIRECTED ERIN Last Admin: 02/16/21 15:01 Dose: 250 mls/hr Documented by: Sodium Bicarbonate 100 meq/ (Dextrose/Water) 1,100 mls @ 100 mls/hr IV ONETIME ONE Stop: 02/17/21 02:02 Last Admin: 02/16/21 15:18 Dose: 100 mls/hr Documented by: Insulin Regular in 0.9 % NACL (Myxredlin In Ns 100 Unit/100 Ml) 100 unit in 100 mls @ 7.82 mls/hr IV TITRATE ERIN; Protocol Sodium Bicarbonate 100 meq/ (Dextrose/Water) 1,100 mls @ 999 mls/hr IV ONETIME ONE Stop: 02/16/21 18:27 Last Admin: 02/16/21 22:50 Dose: Not Given Documented by: Sodium Chloride (Normal Saline) 1,000 mls @ 250 mls/hr IV ASDIRECTED ERIN Insulin Regular in 0.9 % NACL (Myxredlin In Ns 100 Unit/100 Ml) 100 unit in 100 mls @ 7.82 mls/hr IV TITRATE ERIN; Protocol Last Titration: 02/17/21 02:36 Dose: 0 units/kg/hr, 0 mls/hr Documented by: Levofloxacin/Dextrose 500 mg/ (Premix) 100 mls @ 100 mls/hr IV Q24H [facility] Last Admin: 02/16/21 20:54 Dose: 100 mls/hr Documented by: Sodium Chloride (Normal Saline) 1,000 mls @ 1,000 mls/hr IV ASDIRECTED ERIN Stop: 02/16/21 19:59 Last Admin: 02/16/21 19:02 Dose: 1,000 mls/hr Documented by: Potassium Chloride/Sodium Chloride (Normal Saline With 40 Meq Kcl) 1,000 mls @ 250 mls/hr IV ASDIRECTED [facility] Last Admin: 02/17/21 01:48 Dose: 250 mls/hr Documented by: Sodium Bicarbonate 100 meq/ (Dextrose/Water) 1,100 mls @ 150 mls/hr IV ONETIME ONE Stop: 02/17/21 10:39 Last Infusion: 02/17/21 07:55 Dose: 50 mls/hr Documented by: Heparin Sodium/Sodium Chloride (Heparin 25,000 Units In 1/2 Ns 500 Ml) 25,000 units in 500 mls @ 18.768 mls/hr IV TITRATE [facility]; Protocol Last Admin: 02/19/21 03:31 Dose: 22 units/kg/hr, 34.408 mls/hr Documented by: Levofloxacin/Dextrose 500 mg/ (Premix) 100 mls @ 100 mls/hr IV Q48H [facility] Last Admin: 02/18/21 17:21 Dose: 100 mls/hr Documented by: Lactated Ringer's (Ringers, Lactated) 1,000 mls @ 125 mls/hr IV ASDIRECTED [facility] Last Admin: 02/19/21 05:45 Dose: 125 mls/hr Documented by: Levofloxacin/Dextrose 750 mg/ (Premix) 150 mls @ 100 mls/hr IV Q24H [facility] Stop: 02/21/21 11:01 Last Admin: 02/21/21 11:15 Dose: 100 mls/hr Documented by: Potassium Chloride 20 meq/ (Premix) 100 mls @ 50 mls/hr IV ONETIME ONE Stop: 02/20/21 09:22 Last Admin: 02/20/21 08:00 Dose: 50 mls/hr Documented by: Calcium Gluconate 1 gm/ Sodium (Chloride) 110 mls @ 110 mls/hr IV ONETIME ONE Stop: 02/20/21 08:29 Last Admin: 02/20/21 08:14 Dose: 110 mls/hr Documented by: Albumin Human 50 gm/ Premix 200 mls @ 100 mls/hr IV NOW ONE Stop: 02/23/21 13:21 Last Admin: 02/23/21 12:12 Dose: 100 mls/hr Documented by: Insulin Glargine (Insulin Glarg,Human.Rec.Analog 100 Unit/Ml) 35 unit SUBCUT ONETIME ONE Stop: 02/17/21 04:13 Last Admin: 02/17/21 04:28 Dose: 35 units Documented by: Insulin Glargine (Insulin Glarg,Human.Rec.Analog 100 Unit/Ml) 20 unit SUBCUT ONETIME ONE Stop: 02/19/21 09:23 Last Admin: 02/19/21 09:57 Dose: 20 units Documented by: Insulin Glargine (Insulin Glarg,Human.Rec.Analog 100 Unit/Ml) 40 unit SUBCUT BEDTIME [facility] Last Admin: 02/19/21 21:47 Dose: 40 units Documented by: Insulin Glargine (Insulin Glarg,Human.Rec.Analog 100 Unit/Ml) 20 unit SUBCUT BEDTIME [facility] Last Admin: 03/05/21 20:55 Dose: 20 units Documented by: Insulin Glargine (Insulin Glarg,Human.Rec.Analog 100 Unit/Ml) 24 unit SUBCUT BEDTIME [facility] Last Admin: 03/06/21 20:47 Dose: 24 units Documented by: Insulin Human Lispro (Insulin Lispro 100 Units/Ml 3 Ml Vial) 5 unit SUBCUT ONETIME ONE Stop: 02/17/21 04:15 Last Admin: 02/17/21 04:29 Dose: 5 units Documented by: Insulin Human Lispro (Insulin Lispro 100 Units/Ml 3 Ml Vial) 0 unit SUBCUT WITHMEALSANDBED [facility]; Protocol Last Admin: 02/18/21 09:04 Dose: Not Given Documented by: Insulin Human Lispro (Insulin Lispro 100 Units/Ml 3 Ml Vial) 14 unit SUBCUT ONETIME ONE Stop: 02/19/21 12:27 Last Admin: 02/19/21 12:36 Dose: Not Given Documented by: Insulin Human Lispro (Insulin Lispro 100 Units/Ml 3 Ml Vial) 12 unit SUBCUT ONETIME ONE Stop: 02/19/21 12:27 Last Admin: 02/19/21 12:41 Dose: 12 units Documented by: Insulin Human Regular (Insulin Regular, Human 100 Units/Ml 3 Ml Vial) 5 unit IV ONETIME ONE Stop: 02/16/21 14:22 Last Admin: 02/16/21 14:59 Dose: 5 unit Documented by: Insulin Human Regular (Insulin Regular, Human 100 Units/Ml 3 Ml Vial) 10 unit IV STAT STA Stop: 02/16/21 17:11 Last Admin: 02/16/21 17:19 Dose: 10 units Documented by: Insulin Human Regular (Insulin Regular, Human 100 Units/Ml 3 Ml Vial) 10 unit IV ONETIME ONE Stop: 02/16/21 18:13 Last Admin: 02/16/21 18:14 Dose: 10 units Documented by: Lisinopril (Lisinopril 5 Mg Tab) 2.5 mg PO DAILY ERIN Metolazone (Metolazone 2.5 Mg Tab) 5 mg PO ONETIME ONE Stop: 02/27/21 06:01 Last Admin: 02/27/21 06:07 Dose: 5 mg Documented by: Nitroglycerin (Nitroglycerin 0.4 Mg Tab.Sl) 0.4 mg SL ONETIME ONE Stop: 02/18/21 15:41 Last Admin: 02/18/21 15:47 Dose: 0.4 mg Documented by: Nystatin (Nystatin Topical Powder 30 Gm Bottle) 0 gm TOP Q8H [facility] Last Admin: 02/19/21 03:43 Dose: 1 applic Documented by: Nystatin (Nystatin Topical Powder 30 Gm Bottle) 0 gm TOP Q8HR [facility] Last Admin: 02/28/21 22:12 Dose: 1 applic Documented by: Potassium Chloride (Potassium Chloride 10 Meq Tab.Er) 40 meq PO ONETIME ONE Stop: 02/17/21 03:20 Last Admin: 02/17/21 07:20 Dose: Not Given Documented by: Potassium Chloride (Potassium Chloride 10 Meq Tab.Er) 40 meq PO ONETIME ONE Stop: 02/17/21 07:52 Last Admin: 02/17/21 08:43 Dose: 40 meq Documented by: Potassium Chloride (Potassium Chloride 10% 20 Meq/15 Ml Soln 15 Ml Ud Cup) 40 meq PO ONETIME ONE Stop: 02/17/21 17:01 Last Admin: 02/17/21 17:41 Dose: 40 meq Documented by: Potassium Chloride (Potassium Chloride 10 Meq Tab.Er) 20 meq PO DAILY ERIN Sodium Bicarbonate (Sodium Bicarbonate 8.4% 50 Meq/50 Ml Syringe) 50 meq IVPUSH ONETIME ONE Stop: 02/16/21 15:04 Last Admin: 02/16/21 15:08 Dose: 50 meq Documented by: Sodium Bicarbonate (Sodium Bicarbonate 8.4% 50 Meq/50 Ml Syringe) 100 meq IVPUSH ONETIME ONE Stop: 02/16/21 17:24 Last Admin: 02/16/21 17:49 Dose: 100 meq Documented by: Zolpidem Tartrate (Zolpidem 5 Mg Tab) 5 mg PO ONETIME ONE Stop: 02/18/21 22:06 Last Admin: 02/18/21 22:17 Dose: 5 mg Documented by: Zolpidem Tartrate (Zolpidem 5 Mg Tab) 5 mg PO ONETIME ONE Stop: 02/20/21 00:18 Last Admin: 02/20/21 00:38 Dose: 5 mg Documented by: - Exam Urinary Catheter Total Time: 2Days 13Hours General: Alert, Oriented Lungs: Normal Respiratory Effort, Rales (Mild rales in right lower lung base. Left lung clear in all areas.) Cardiovascular: Regular Rate, Regular Rhythm Back Exam: Full Range of Motion Extremities: No Pedal Edema Skin: Warm, Dry, Intact Psy/Mental Status: Alert, Normal Affect, Normal Mood - Patient Data Lab Results Last 24 hrs: Laboratory Results - last 24 hr 03/06/21 03/06/21 03/06/21 Range/Units 11:34 16:59 20:44 Sodium (136-145) mmol/L Potassium (3.5-5.1) mmol/L Chloride (98-107) mmol/L Carbon Dioxide (21-32) mmol/L Anion Gap (7-13) mEq/L BUN (7-18) mg/dL Creatinine (0.55-1.02) mg/dL Est Cr Clr Drug Dosing mL/min Estimated GFR (MDRD) Glucose (70-99) mg/dL POC Glucose 217 H 228 H 233 H (70-99) mg/dL Calcium (8.5-10.1) mg/dL 03/07/21 03/07/21 03/07/21 Range/Units 06:05 07:31 08:28 Sodium 145 (136-145) mmol/L Potassium 3.0 L (3.5-5.1) mmol/L Chloride 107 (98-107) mmol/L Carbon Dioxide 31 (21-32) mmol/L Anion Gap 10.0 (7-13) mEq/L BUN 14 (7-18) mg/dL Creatinine 0.75 (0.55-1.02) mg/dL Est Cr Clr Drug Dosing 68.84 mL/min Estimated GFR (MDRD) > 60 Glucose 52 L (70-99) mg/dL POC Glucose 47 L* 96 (70-99) mg/dL Calcium 8.3 L (8.5-10.1) mg/dL Result Diagrams: 03/04/21 06:05 03/07/21 06:05 Sepsis Event Note - Evaluation Sepsis Screening Result: No Definite Risk - Focused Exam Vital Signs: Vital Signs Temp Pulse Pulse Resp BP BP Pulse Ox 03/07/21 08:10 69 142/79 H 03/07/21 08:09 142/79 H 03/07/21 07:43 97.2 F 69 20 142/79 H 97 03/07/21 04:00 98.7 F 70 18 136/70 95 03/07/21 00:00 98.7 F 75 20 144/64 H 94 L - Problem List & Annotations (1) Failure to thrive SNOMED Code(s): 30060389 Code(s): [id number] - Status: Acute Priority: Medium Current Visit: Yes Onset Date: ~03/05/21 Qualifiers: Failure to thrive age range: in adult Qualified Code(s): R62.7 - Adult failure to thrive (2) Diabetes mellitus SNOMED Code(s): 49559356 Code(s): E11.9 - TYPE 2 DIABETES MELLITUS WITHOUT COMPLICATIONS Status: A cute Current Visit: Yes Qualifiers: Diabetes mellitus type: type 2 Diabetes mellitus complication status: without complication - Problem List Review Problem List Initiated/Reviewed/Updated: Yes - My Orders Last 24 Hours: My Active Orders 03/06/21 19:03 Dextrose 50% in Water 50 ml IVPUSH Q15M PRN Glucagon,Human Recombinant [GlucaGen] 1 mg IM Q15M PRN 03/07/21 08:00 Insulin Lispro [HumaLOG] 2 unit SUBCUT TIDMEALS 03/07/21 08:15 Potassium Chloride [Klor-Con 10] 40 meq PO WITHBREAKFAST 03/07/21 21:00 Insulin Glarg,Human.Rec.Analog [LantUS] 20 unit SUBCUT BEDTIME 03/08/21 09:00 Furosemide [Lasix] 40 mg PO DAILY - Assessment Assessment:: Assessment: -Failure to thrive Had a care conference with Coreen, staff from the state, staff from the hospital, and her daughter. See social work note for details of the plan. Essentially, Coreen will be referred to correction facility for rehab and for optimizing her diabetes control. I would recommend a continuous glucose monitor and regular physical therapy visits. - Uncontrolled type 2 diabetes mellitus, insulin-dependent Coreen has become a brittle diabetic. Her blood sugars yesterday were in the 200s, so her Lantus was increased from 20 to 24 units at bedtime. But overnight, she slept and did not eat as much as she normally does at night and the following morning her glucose was 47. She was asymptomatic at that time. Coreen states that she was denied food and fluid but nursing staff stated that she was sleeping for the whole night. continue with the 2 units prandial with meals, 3 times daily Continue with sliding scale insulin Continue lisinopril Hypoglycemia protocol - Acute coronary syndrome, resolved treat CAD with asa, Plavix cont coreg, zetia, lisinopril - Acute on chronic congestive heart failure Will need echo after discharge to further characterize Still has significant LE edema Treat with coreg, Start supplemental potassium Follow for need for K supplement replace as needed - Hypokalemia Start supplemental potassium Monitor serum potassium regularly - DKA with unresponsiveness Resolved - Hypernatremia Stable - Past history of cerebrovascular accident Weakness Cont pt/ot as tolerated Nursing is watching her skin carefully for signs of breakdown - VTE prophylaxis: Is on Lovenox -Diabetic diet - Discharge planning has moved forward to start searching for placement. Once placement is found, possibly early next week, Coreen will be able to be discharged.
[2021-03-07] MEDS: Zolpidem 5 MG Tab PO PRN (20:45)
[2021-03-07] MEDS: Ezetimibe 10 MG Tab PO SCH (21:10)
[2021-03-07] MEDS: Insulin Glarg,Human.Rec.Analog 100 Unit/ML SUBCUT SCH (21:10)
[2021-03-08 06:49] LABS: ANION GAP 10.4 mEq/L (7-13); CHLORIDE,CL 110 mmol/L (98-107); SODIUM,NA 146 mmol/L (136-145)
--- NOTE | 2021-03-08 08:03 | PCM.PN ---
- General Info Date of Service: 03/08/21 Admission Dx/Problem (Free Text): Admission Diagnosis/Problem Admission Diagnosis/Problem Diabetic ketoacidosis with coma Subjective Update: Ms Angela is feeling well. Does not have new complaints. Denies chest pain, shortness of breath, nausea, vomiting, diarrhea, leg edema. NO overnight events Vital signs acceptable - Review of Systems General: Reports: No Symptoms HEENT: Reports: No Symptoms Pulmonary: Reports: No Symptoms Cardiovascular: Reports: No Symptoms Gastrointestinal: Reports: No Symptoms Genitourinary: Reports: No Symptoms Musculoskeletal: Reports: No Symptoms Skin: Reports: No Symptoms Neurological: Reports: No Symptoms Psychiatric: Reports: No Symptoms - Patient Data Vitals - Most Recent: Last Vital Signs Temp 36.4 C 03/08/21 07:38 Pulse 69 03/08/21 07:38 Resp 18 03/08/21 07:38 BP 127/71 03/08/21 07:38 Pulse Ox 96 03/08/21 07:38 Weight - Most Recent: 83.007 kg I&O - Last 24 Hours: Intake & Output 03/07/21 03/08/21 03/08/21 22:59 06:59 14:59 Intake Total 550 Balance 550 Lab Results Last 24 Hours: Laboratory Results - last 24 hr 03/07/21 03/07/21 03/07/21 Range/Units 08:28 11:21 16:57 Sodium (136-145) mmol/L Potassium (3.5-5.1) mmol/L Chloride (98-107) mmol/L Carbon Dioxide (21-32) mmol/L Anion Gap (7-13) mEq/L BUN (7-18) mg/dL Creatinine (0.55-1.02) mg/dL Est Cr Clr Drug Dosing mL/min Estimated GFR (MDRD) Glucose (70-99) mg/dL POC Glucose 96 112 H 248 H (70-99) mg/dL Calcium (8.5-10.1) mg/dL 03/07/21 03/08/21 03/08/21 Range/Units 20:26 05:58 07:31 Sodium 146 H (136-145) mmol/L Potassium 3.4 L (3.5-5.1) mmol/L Chloride 110 H (98-107) mmol/L Carbon Dioxide 29 (21-32) mmol/L Anion Gap 10.4 (7-13) mEq/L BUN 17 (7-18) mg/dL Creatinine 0.68 (0.55-1.02) mg/dL Est Cr Clr Drug Dosing 75.93 mL/min Estimated GFR (MDRD) > 60 Glucose 96 (70-99) mg/dL POC Glucose 275 H 78 (70-99) mg/dL Calcium 8.3 L (8.5-10.1) mg/dL Med Orders - Current: Current Medications Acetaminophen (Acetaminophen 500 Mg Tab) 500 mg PO Q4H PRN PRN Reason: Pain/Fever Last Admin: 03/07/21 14:51 Dose: 500 mg Documented by: Aspirin (Aspirin 81 Mg Tab.Ec) 81 mg PO DAILY [facility] Last Admin: 03/07/21 08:09 Dose: 81 mg Documented by: Carvedilol (Carvedilol 3.125 Mg Tab) 6.25 mg PO BIDMEALS [facility] Last Admin: 03/07/21 17:28 Dose: 6.25 mg Documented by: Clopidogrel Bisulfate (Clopidogrel 75 Mg Tab) 75 mg PO DAILY [facility] Last Admin: 03/07/21 08:09 Dose: 75 mg Documented by: Dextrose/Water (50% Dextrose In Water 50 Ml Syringe) 25 ml IVPUSH Q15M PRN PRN Reason: Hypoglycemia Last Admin: 02/28/21 08:35 Dose: 25 ml Documented by: Dextrose/Water (50% Dextrose In Water 50 Ml Syringe) 50 ml IVPUSH Q15M PRN PRN Reason: Hypoglycemia Ezetimibe (Ezetimibe 10 Mg Tab) 10 mg PO BEDTIME [facility] Last Admin: 03/07/21 21:10 Dose: 10 mg Documented by: Enoxaparin Sodium (Enoxaparin 40 Mg/0.4 Ml Syringe) 40 mg SUBCUT DAILY [facility] Last Admin: 03/07/21 08:11 Dose: 40 mg Documented by: Ferrous Sulfate (Ferrous Sulfate 325 Mg Tab) 325 mg PO Q48H [facility] Last Admin: 03/06/21 08:30 Dose: 325 mg Documented by: Furosemide (Furosemide 40 Mg Tab) 40 mg PO DAILY [facility] Glucagon (Glucagon,Human Recombinant 1 Mg Vial) 1 mg IM Q15M PRN PRN Reason: Hypoglycemia Insulin Glargine (Insulin Glarg,Human.Rec.Analog 100 Unit/Ml) 20 unit SUBCUT BEDTIME [facility] Last Admin: 03/07/21 21:10 Dose: 20 units Documented by: Insulin Human Lispro (Insulin Lispro 100 Units/Ml 3 Ml Vial) 0 unit SUBCUT WITHMEALSANDBED [facility]; Protocol Last Admin: 03/07/21 21:09 Dose: 6 units Documented by: Insulin Human Lispro (Insulin Lispro 100 Units/Ml 3 Ml Vial) 2 unit SUBCUT TIDMEALS [facility] Last Admin: 03/07/21 17:33 Dose: 2 units Documented by: Lisinopril (Lisinopril 10 Mg Tab) 10 mg PO DAILY [facility] Last Admin: 03/07/21 08:09 Dose: 10 mg Documented by: Melatonin (Melatonin 3 Mg Tab) 6 mg PO BEDTIME PRN PRN Reason: Sleep Last Admin: 03/06/21 20:48 Dose: 6 mg Documented by: Nystatin (Nystatin Topical Powder 30 Gm Bottle) 1 gm TOP Q8H PRN PRN Reason: Rash Potassium Chloride (Potassium Chloride 10 Meq Tab.Er) 40 meq PO WITHBREAKFAST [facility] Stop: 03/11/21 08:16 Last Admin: 03/07/21 08:24 Dose: 40 meq Documented by: Potassium Chloride (Potassium Chloride 10 Meq Tab.Er) 20 meq PO BID [facility] Stop: 03/08/21 21:01 Zolpidem Tartrate (Zolpidem 5 Mg Tab) 5 mg PO BEDTIME PRN PRN Reason: Sleep Last Admin: 03/06/21 20:49 Dose: 5 mg Documented by: Discontinued Medications COVID-19 Vaccine mRNA LNP-S (PFR) (PF) (Covid-19 Vacc, Mrna(Pfizer)/Pf 30 Mcg/0.3 Ml Vial) 30 mcg IM .ONCE ONE Stop: 02/25/21 16:21 Last Admin: 02/25/21 17:11 Dose: Not Given Documented by: Carvedilol (Carvedilol 6.25 Mg Tab) 6.25 mg PO ONETIME ONE Stop: 02/19/21 12:28 Last Admin: 02/19/21 12:36 Dose: Not Given Documented by: Carvedilol (Carvedilol 3.125 Mg Tab) 3.125 mg PO BIDMEALS [facility] Last Admin: 02/28/21 09:52 Dose: 3.125 mg Documented by: Clopidogrel Bisulfate (Clopidogrel 75 Mg Tab) 225 mg PO ONETIME STA Stop: 02/17/21 11:11 Last Admin: 02/17/21 11:24 Dose: 225 mg Documented by: Dextrose/Water (50% Dextrose In Water 50 Ml Syringe) 50 ml IVPUSH Q15M PRN PRN Reason: Hypoglycemia Dextrose/Water (50% Dextrose In Water 50 Ml Syringe) 50 ml IVPUSH Q15M PRN PRN Reason: Hypoglycemia Dextrose/Water (50% Dextrose In Water 50 Ml Syringe) 50 ml IVPUSH Q15M PRN PRN Reason: Hypoglycemia Dextrose/Water (50% Dextrose In Water 50 Ml Syringe) Confirm Administered Dose 50 ml .ROUTE .STK-MED ONE Stop: 02/20/21 07:41 Last Admin: 02/20/21 08:14 Dose: Not Given Documented by: Dextrose/Water (50% Dextrose In Water 50 Ml Syringe) 50 ml IVPUSH ONETIME ONE Stop: 02/26/21 07:46 Last Admin: 02/26/21 07:45 Dose: 50 ml Documented by: Furosemide (Furosemide 20 Mg/2 Ml Vial) 20 mg IVPUSH ONETIME ONE Stop: 02/16/21 15:51 Last Admin: 02/16/21 15:54 Dose: 20 mg Documented by: Furosemide (Furosemide 40 Mg/4 Ml Vial) 40 mg IVPUSH ONETIME ONE Stop: 02/23/21 16:01 Last Admin: 02/23/21 16:00 Dose: 40 mg Documented by: Furosemide (Furosemide 20 Mg Tab) 20 mg PO DAILY [facility] Last Admin: 03/03/21 10:17 Dose: 20 mg Documented by: Furosemide (Furosemide 20 Mg Tab) 20 mg PO BIDDIURETIC ERIN Last Admin: 03/04/21 08:31 Dose: 20 mg Documented by: Furosemide (Furosemide 20 Mg/2 Ml Vial) 20 mg IVPUSH Q8H [facility] Last Admin: 03/07/21 05:58 Dose: 20 mg Documented by: Furosemide (Furosemide 40 Mg Tab) 40 mg PO DAILY [facility] Glucagon (Glucagon,Human Recombinant 1 Mg Vial) 1 mg IM Q15M PRN PRN Reason: Hypoglycemia Glucagon (Glucagon,Human Recombinant 1 Mg Vial) 1 mg IM Q15M PRN PRN Reason: Hypoglycemia Heparin Sodium (Porcine) (Heparin Sodium 5,000 Units/Ml Vial) 4,700 units IV ONETIME ONE Stop: 02/17/21 08:31 Last Admin: 02/17/21 08:34 Dose: 4,700 units Documented by: Heparin Sodium (Porcine) (Heparin Sodium 5,000 Units/Ml Vial) 1,000 units IVPU SH ONETIME ONE Stop: 02/17/21 22:56 Last Admin: 02/17/21 23:14 Dose: 1,000 units Documented by: Heparin Sodium (Porcine) (Heparin Sodium 5,000 Units/Ml Vial) 2,000 units IVPUSH .BOLUS ONE Stop: 02/18/21 09:18 Last Admin: 02/18/21 09:35 Dose: 2,000 units Documented by: Heparin Sodium (Porcine) (Heparin Sodium 5,000 Units/Ml Vial) 2,000 units IVPUSH ONETIME ONE Stop: 02/18/21 22:43 Last Admin: 02/18/21 22:55 Dose: 2,000 units Documented by: Sodium Chloride (Normal Saline) 1,000 mls @ 999 mls/hr IV .BOLUS ONE Stop: 02/16/21 15:00 Last Admin: 02/16/21 17:42 Dose: 999 mls/hr Documented by: Albumin Human (Buminate 5%) 250 mls @ 250 mls/hr IV ASDIRECTED ERIN Last Admin: 02/16/21 15:01 Dose: 250 mls/hr Documented by: Sodium Bicarbonate 100 meq/ (Dextrose/Water) 1,100 mls @ 100 mls/hr IV ONETIME ONE Stop: 02/17/21 02:02 Last Admin: 02/16/21 15:18 Dose: 100 mls/hr Documented by: Insulin Regular in 0.9 % NACL (Myxredlin In Ns 100 Unit/100 Ml) 100 unit in 100 mls @ 7.82 mls/hr IV TITRATE ERIN; Protocol Sodium Bicarbonate 100 meq/ (Dextrose/Water) 1,100 mls @ 999 mls/hr IV ONETIME ONE Stop: 02/16/21 18:27 Last Admin: 02/16/21 22:50 Dose: Not Given Documented by: Sodium Chloride (Normal Saline) 1,000 mls @ 250 mls/hr IV ASDIRECTED ERIN Insulin Regular in 0.9 % NACL (Myxredlin In Ns 100 Unit/100 Ml) 100 unit in 100 mls @ 7.82 mls/hr IV TITRATE ERIN; Protocol Last Titration: 02/17/21 02:36 Dose: 0 units/kg/hr, 0 mls/hr Documented by: Levofloxacin/Dextrose 500 mg/ (Premix) 100 mls @ 100 mls/hr IV Q24H ERIN Last Admin: 02/16/21 20:54 Dose: 100 mls/hr Documented by: Sodium Chloride (Normal Saline) 1,000 mls @ 1,000 mls/hr IV ASDIRECTED ERIN Stop: 02/16/21 19:59 Last Admin: 02/16/21 19:02 Dose: 1,000 mls/hr Documented by: Potassium Chloride/Sodium Chloride (Normal Saline With 40 Meq Kcl) 1,000 mls @ 250 mls/hr IV ASDIRECTED ERIN Last Admin: 02/17/21 01:48 Dose: 250 mls/hr Documented by: Sodium Bicarbonate 100 meq/ (Dextrose/Water) 1,100 mls @ 150 mls/hr IV ONETIME ONE Stop: 02/17/21 10:39 Last Infusion: 02/17/21 07:55 Dose: 50 mls/hr Documented by: Heparin Sodium/Sodium Chloride (Heparin 25,000 Units In 1/2 Ns 500 Ml) 25,000 units in 500 mls @ 18.768 mls/hr IV TITRATE ERIN; Protocol Last Admin: 02/19/21 03:31 Dose: 22 units/kg/hr, 34.408 mls/hr Documented by: Levofloxacin/Dextrose 500 mg/ (Premix) 100 mls @ 100 mls/hr IV Q48H ERIN Last Admin: 02/18/21 17:21 Dose: 100 mls/hr Documented by: Lactated Ringer's (Ringers, Lactated) 1,000 mls @ 125 mls/hr IV ASDIRECTED ERIN Last Admin: 02/19/21 05:45 Dose: 125 mls/hr Documented by: Levofloxacin/Dextrose 750 mg/ (Premix) 150 mls @ 100 mls/hr IV Q24H [facility] Stop: 02/21/21 11:01 Last Admin: 02/21/21 11:15 Dose: 100 mls/hr Documented by: Potassium Chloride 20 meq/ (Premix) 100 mls @ 50 mls/hr IV ONETIME ONE Stop: 02/20/21 09:22 Last Admin: 02/20/21 08:00 Dose: 50 mls/hr Documented by: Calcium Gluconate 1 gm/ Sodium (Chloride) 110 mls @ 110 mls/hr IV ONETIME ONE Stop: 02/20/21 08:29 Last Admin: 02/20/21 08:14 Dose: 110 mls/hr Documented by: Albumin Human 50 gm/ Premix 200 mls @ 100 mls/hr IV NOW ONE Stop: 02/23/21 13:21 Last Admin: 02/23/21 12:12 Dose: 100 mls/hr Documented by: Insulin Glargine (Insulin Glarg,Human.Rec.Analog 100 Unit/Ml) 35 unit SUBCUT ONETIME ONE Stop: 02/17/21 04:13 Last Admin: 02/17/21 04:28 Dose: 35 units Documented by: Insulin Glargine (Insulin Glarg,Human.Rec.Analog 100 Unit/Ml) 20 unit SUBCUT ONETIME ONE Stop: 02/19/21 09:23 Last Admin: 02/19/21 09:57 Dose: 20 units Documented by: Insulin Glargine (Insulin Glarg,Human.Rec.Analog 100 Unit/Ml) 40 unit SUBCUT BEDTIME [facility] Last Admin: 02/19/21 21:47 Dose: 40 units Documented by: Insulin Glargine (Insulin Glarg,Human.Rec.Analog 100 Unit/Ml) 20 unit SUBCUT BEDTIME [facility] Last Admin: 03/05/21 20:55 Dose: 20 units Documented by: Insulin Glargine (Insulin Glarg,Human.Rec.Analog 100 Unit/Ml) 24 unit SUBCUT BEDTIME [facility] Last Admin: 03/06/21 20:47 Dose: 24 units Documented by: Insulin Human Lispro (Insulin Lispro 100 Units/Ml 3 Ml Vial) 5 unit SUBCUT ONETIME ONE Stop: 02/17/21 04:15 Last Admin: 02/17/21 04:29 Dose: 5 units Documented by: Insulin Human Lispro (Insulin Lispro 100 Units/Ml 3 Ml Vial) 0 unit SUBCUT WITHMEALSANDBED [facility]; Protocol Last Admin: 02/18/21 09:04 Dose: Not Given Documented by: Insulin Human Lispro (Insulin Lispro 100 Units/Ml 3 Ml Vial) 14 unit SUBCUT ONETIME ONE Stop: 02/19/21 12:27 Last Admin: 02/19/21 12:36 Dose: Not Given Documented by: Insulin Human Lispro (Insulin Lispro 100 Units/Ml 3 Ml Vial) 12 unit SUBCUT ONETIME ONE Stop: 02/19/21 12:27 Last Admin: 02/19/21 12:41 Dose: 12 units Documented by: Insulin Human Regular (Insulin Regular, Human 100 Units/Ml 3 Ml Vial) 5 unit IV ONETIME ONE Stop: 02/16/21 14:22 Last Admin: 02/16/21 14:59 Dose: 5 unit Documented by: Insulin Human Regular (Insulin Regular, Human 100 Units/Ml 3 Ml Vial) 10 unit IV STAT STA Stop: 02/16/21 17:11 Last Admin: 02/16/21 17:19 Dose: 10 units Documented by: Insulin Human Regular (Insulin Regular, Human 100 Units/Ml 3 Ml Vial) 10 unit IV ONETIME ONE Stop: 02/16/21 18:13 Last Admin: 02/16/21 18:14 Dose: 10 units Documented by: Lisinopril (Lisinopril 5 Mg Tab) 2.5 mg PO DAILY [facility] Metolazone (Metolazone 2.5 Mg Tab) 5 mg PO ONETIME ONE Stop: 02/27/21 06:01 Last Admin: 02/27/21 06:07 Dose: 5 mg Documented by: Nitroglycerin (Nitroglycerin 0.4 Mg Tab.Sl) 0.4 mg SL ONETIME ONE Stop: 02/18/21 15:41 Last Admin: 02/18/21 15:47 Dose: 0.4 mg Documented by: Nystatin (Nystatin Topical Powder 30 Gm Bottle) 0 gm TOP Q8H [facility] Last Admin: 02/19/21 03:43 Dose: 1 applic Documented by: Nystatin (Nystatin Topical Powder 30 Gm Bottle) 0 gm TOP Q8HR [facility] Last Admin: 02/28/21 22:12 Dose: 1 applic Documented by: Potassium Chloride (Potassium Chloride 10 Meq Tab.Er) 40 meq PO ONETIME ONE Stop: 02/17/21 03:20 Last Admin: 02/17/21 07:20 Dose: Not Given Documented by: Potassium Chloride (Potassium Chloride 10 Meq Tab.Er) 40 meq PO ONETIME ONE Stop: 02/17/21 07:52 Last Admin: 02/17/21 08:43 Dose: 40 meq Documented by: Potassium Chloride (Potassium Chloride 10% 20 Meq/15 Ml Soln 15 Ml Ud Cup) 40 meq PO ONETIME ONE Stop: 02/17/21 17:01 Last Admin: 02/17/21 17:41 Dose: 40 meq Documented by: Potassium Chloride (Potassium Chloride 10 Meq Tab.Er) 20 meq PO DAILY [facility] Sodium Bicarbonate (Sodium Bicarbonate 8.4% 50 Meq/50 Ml Syringe) 50 meq IVPUSH ONETIME ONE Stop: 02/16/21 15:04 Last Admin: 02/16/21 15:08 Dose: 50 meq Documented by: Sodium Bicarbonate (Sodium Bicarbonate 8.4% 50 Meq/50 Ml Syringe) 100 meq IVPUSH ONETIME ONE Stop: 02/16/21 17:24 Last Admin: 02/16/21 17:49 Dose: 100 meq Documented by: Zolpidem Tartrate (Zolpidem 5 Mg Tab) 5 mg PO ONETIME ONE Stop: 02/18/21 22:06 Last Admin: 02/18/21 22:17 Dose: 5 mg Documented by: Zolpidem Tartrate (Zolpidem 5 Mg Tab) 5 mg PO ONETIME ONE Stop: 02/20/21 00:18 Last Admin: 02/20/21 00:38 Dose: 5 mg Documented by: - Exam Urinary Catheter Total Time: 2Days 13Hours General: Alert, Oriented, Cooperative HEENT: Pupils Equal, Pupils Reactive, EOMI Neck: Supple, Trachea Midline, No JVD, No Thyromegaly Lungs: Clear to Auscultation, Normal Respiratory Effort Cardiovascular: Regular Rate, Regular Rhythm GI/Abdominal Exam: Normal Bowel Sounds, Soft, Non-Tender, No Organomegaly Extremities: Normal Inspection, Normal Range of Motion, Non-Tender Skin: Warm, Dry, Intact Neurological: No New Focal Deficit, Normal Speech, Normal Tone, Strength Equal Bilateral, Reflexes Equal Bilateral, Sensation Intact Psy/Mental Status: Alert, Normal Affect, Normal Mood - Patient Data Lab Results Last 24 hrs: Laboratory Results - last 24 hr 03/07/21 03/07/21 03/07/21 Range/Units 08:28 11: 16:57 Sodium (136-145) mmol/L Potassium (3.5-5.1) mmol/L Chloride (98-107) mmol/L Carbon Dioxide (21-32) mmol/L Anion Gap (7-13) mEq/L BUN (7-18) mg/dL Creatinine (0.55-1.02) mg/dL Est Cr Clr Drug Dosing mL/min Estimated GFR (MDRD) Glucose (70-99) mg/dL POC Glucose 96 112 H 248 H (70-99) mg/dL Calcium (8.5-10.1) mg/dL 03/07/21 03/08/21 03/08/21 Range/Units 20:26 05:58 07:31 Sodium 146 H (136-145) mmol/L Potassium 3.4 L (3.5-5.1) mmol/L Chloride 110 H (98-107) mmol/L Carbon Dioxide 29 (21-32) mmol/L Anion Gap 10.4 (7-13) mEq/L BUN 17 (7-18) mg/dL Creatinine 0.68 (0.55-1.02) mg/dL Est Cr Clr Drug Dosing 75.93 mL/min Estimated GFR (MDRD) > 60 Glucose 96 (70-99) mg/dL POC Glucose 275 H 78 (70-99) mg/dL Calcium 8.3 L (8.5-10.1) mg/dL Result Diagrams: 03/04/21 06:05 03/08/21 05:58 Sepsis Event Note - Evaluation Sepsis Screening Result: No Definite Risk - Focused Exam Vital Signs: Vital Signs Temp Pulse Resp BP Pulse Ox 03/08/21 07:38 36.4 C 69 18 127/71 96 03/08/21 04:00 36.7 C 72 18 132/59 L 95 - Problem List Review Problem List Initiated/Reviewed/Updated: Yes - My Orders Last 24 Hours: My Active Orders 03/08/21 09:00 Potassium Chloride [Klor-Con 10] 20 meq PO BID - Assessment Assessment:: Assessment: Failure to thrive Had a care conference with Coreen, staff from the state, staff from the hospital, and her daughter. See social work note for details of the plan. Essentially, Coreen will be referred to snf facility for rehab and for optimizing her diabetes control. Continuous glucose monitor and regular physical therapy visits. Uncontrolled type 2 diabetes mellitus, insulin-dependent Coreen has become a brittle diabetic. Her blood sugars 2 days ago were in the 200s, so her Lantus was increased from 20 to 24 units at bedtime. But yesterday, she slept and did not eat as much as she normally does at night and the following morning her glucose was 47. She was asymptomatic at that time. Coreen states that she was denied food and fluid but nursing staff stated that she was sleeping for the whole night. Diabetic diet continue with the 2 units prandial with meals, 3 times daily Continue lantus 20units daily Continue with sliding scale insulin Continue lisinopril Hypoglycemia protocol Acute coronary syndrome, resolved treat CAD with asa, Plavix cont coreg, zetia, lisinopril Acute on chronic congestive heart failure Will need echo after discharge to further characterize Still has significant LE edema Treat with coreg, Continue lisinopril Start supplemental potassium Follow for need for K supplement replace as needed Hypokalemia Start supplemental potassium Monitor serum potassium regularly DKA with unresponsiveness Resolved Hypernatremia Stable Past history of cerebrovascular accident Weakness Cont pt/ot as tolerated Nursing is watching her skin carefully for signs of breakdown VTE prophylaxis: Is on Lovenox Discharge planning has moved forward to start searching for placement. Once placement is found, possibly early next week, Coreen will be able to be discharged.
[2021-03-08] MEDS: Ferrous Sulfate 325 MG Tab PO SCH (09:31)
[2021-03-08] MEDS: Carvedilol 3.125 MG Tab PO SCH ×2 (09:31→17:33)
[2021-03-08] MEDS: Clopidogrel 75 MG Tab PO SCH (09:32)
[2021-03-08] MEDS: Furosemide 40 MG Tab PO SCH (09:32)
[2021-03-08] MEDS: Potassium Chloride 10 MEQ Tab.ER PO SCH ×3 (09:32→20:53)
[2021-03-08] MEDS: Aspirin 81 MG Tab.EC PO SCH (09:32)
[2021-03-08] MEDS: Lisinopril 10 MG Tab PO SCH (09:33)
[2021-03-08] MEDS: Enoxaparin 40 MG/0.4 ML Syringe SUBCUT SCH (09:33)
[2021-03-08] MEDS: Insulin Lispro 100 Units/ML 3 ML Vial SUBCUT SCH ×7 (09:34→21:02)
[2021-03-08] MEDS: Ezetimibe 10 MG Tab PO SCH (20:52)
[2021-03-08] MEDS: Insulin Glarg,Human.Rec.Analog 100 Unit/ML SUBCUT SCH (21:03)
[2021-03-08] MEDS: Zolpidem 5 MG Tab PO PRN (23:46)
[2021-03-09] MEDS: Melatonin 3 MG Tab PO PRN (01:42)
[2021-03-09] MEDS: Insulin Lispro 100 Units/ML 3 ML Vial SUBCUT SCH ×7 (08:35→20:41)
[2021-03-09] MEDS: Enoxaparin 40 MG/0.4 ML Syringe SUBCUT SCH (08:35)
[2021-03-09] MEDS: Lisinopril 10 MG Tab PO SCH (08:36)
[2021-03-09] MEDS: Aspirin 81 MG Tab.EC PO SCH (08:36)
[2021-03-09] MEDS: Potassium Chloride 10 MEQ Tab.ER PO SCH (08:36)
[2021-03-09] MEDS: Carvedilol 3.125 MG Tab PO SCH ×2 (08:36→17:54)
[2021-03-09] MEDS: Clopidogrel 75 MG Tab PO SCH (08:37)
[2021-03-09] MEDS: Furosemide 40 MG Tab PO SCH (08:37)
[2021-03-09] MEDS: Acetaminophen 500 MG Tab PO PRN ×2 (08:37→20:36)
--- NOTE | 2021-03-09 11:31 | PN ---
DATE: 03/09/2021 SUBJECTIVE: The patient is a 71-year-old female admitted with DKA and non-STEMI and failure to thrive. The patient this morning is feeling much better, and she denies any chest pain or shortness of breath, abdominal pain, nausea, or vomiting. LABORATORY DATA: Lab workup this morning, glucose is 133. OBJECTIVE: Vital Signs: Blood pressure is 150/70, pulse 72, respiration of 18, temperature of 97, saturation is 98% on room air. Heart: Regular rate and rhythm. Normal S1 and S2. No gallops. No rubs. Lungs: Equal bilaterally. No crackles. No wheezing. Abdomen: Soft, nontender. Extremities: Remarkable for trace to 1+ bilateral pedal edema. ASSESSMENT AND PLAN: 1. Failure to thrive. The patient is slowly improving and the patient's appetite is also improving. 2. Uncontrolled type 2 diabetes mellitus, insulin dependent. The patient's blood sugar has been stable on current regimen of her Lantus. 3. Coronary artery disease/[id number] myocardial infarction. The patient is chest pain-free. We will continue with aspirin and Plavix and continue with and lisinopril. 4. Nmtmo-to-[id number] congestive heart failure. The patient has diuresed well. 5. Diabetic ketoacidosis. This has resolved. [facility] /[id number]
[2021-03-09] MEDS: traZODone 50 MG Tab PO SCH (20:36)
[2021-03-09] MEDS: Ezetimibe 10 MG Tab PO SCH (20:36)
[2021-03-09] MEDS: Insulin Glarg,Human.Rec.Analog 100 Unit/ML SUBCUT SCH (20:40)
[2021-03-10 07:12] LABS: ANION GAP 13.9 mEq/L (7-13); CHLORIDE,CL 108 mmol/L (98-107); SODIUM,NA 144 mmol/L (136-145)
[2021-03-10] MEDS: Clopidogrel 75 MG Tab PO SCH (08:20)
[2021-03-10] MEDS: Lisinopril 10 MG Tab PO SCH (08:20)
[2021-03-10] MEDS: Carvedilol 3.125 MG Tab PO SCH ×2 (08:20→17:16)
[2021-03-10] MEDS: Aspirin 81 MG Tab.EC PO SCH (08:20)
[2021-03-10] MEDS: Potassium Chloride 10 MEQ Tab.ER PO SCH (08:20)
[2021-03-10] MEDS: Ferrous Sulfate 325 MG Tab PO SCH ×2 (08:21→12:13)
[2021-03-10] MEDS: Enoxaparin 40 MG/0.4 ML Syringe SUBCUT SCH (08:21)
[2021-03-10] MEDS: Insulin Lispro 100 Units/ML 3 ML Vial SUBCUT SCH ×7 (08:21→21:05)
[2021-03-10] MEDS: Furosemide 40 MG Tab PO SCH (08:21)
--- NOTE | 2021-03-10 12:18 | PCM.PN ---
- General Info Date of Service: 03/10/21 Subjective Update: No new issues reported. Afebrile. Pt is waiting for a SNF bed for discharge. - Patient Data Vitals - Most Recent: Last Vital Signs Temp 97.5 F 03/10/21 11:42 Pulse 69 03/10/21 11:42 Resp 18 03/10/21 11:42 BP 141/67 H 03/10/21 11:42 Pulse Ox 97 03/10/21 11:42 Weight - Most Recent: 182 lb 6.4 oz I&O - Last 24 Hours: Intake & Output 03/09/21 03/10/21 03/10/21 22:59 06:59 14:59 Intake Total 670 100 440 Balance 670 100 440 Lab Results Last 24 Hours: Laboratory Results - last 24 hr 03/09/21 03/09/21 03/10/21 Range/Units 16:40 20:34 05:45 Sodium 144 (136-145) mmol/L Potassium 3.9 (3.5-5.1) mmol/L Chloride 108 H (98-107) mmol/L Carbon Dioxide 26 (21-32) mmol/L Anion Gap 13.9 H (7-13) mEq/L BUN 18 (7-18) mg/dL Creatinine 0.69 (0.55-1.02) mg/dL Est Cr Clr Drug Dosing 73.78 mL/min Estimated GFR (MDRD) > 60 Glucose 184 H (70-99) mg/dL POC Glucose 225 H 230 H (70-99) mg/dL Calcium 8.3 L (8.5-10.1) mg/dL 03/10/21 Range/Units 07:43 Sodium (136-145) mmol/L Potassium (3.5-5.1) mmol/L Chloride (98-107) mmol/L Carbon Dioxide (21-32) mmol/L Anion Gap (7-13) mEq/L BUN (7-18) mg/dL Creatinine (0.55-1.02) mg/dL Est Cr Clr Drug Dosing mL/min Estimated GFR (MDRD) Glucose (70-99) mg/dL POC Glucose 182 H (70-99) mg/dL Calcium (8.5-10.1) mg/dL Med Orders - Current: Current Medications Acetaminophen (Acetaminophen 500 Mg Tab) 500 mg PO Q4H PRN PRN Reason: Pain/Fever Last Admin: 03/09/21 20:36 Dose: 500 mg Documented by: Aspirin (Aspirin 81 Mg Tab.Ec) 81 mg PO DAILY [facility] Last Admin: 03/10/21 08:20 Dose: 81 mg Documented by: Carvedilol (Carvedilol 3.125 Mg Tab) 6.25 mg PO BIDMEALS [facility] Last Admin: 03/10/21 08:20 Dose: 6.25 mg Documented by: Clopidogrel Bisulfate (Clopidogrel 75 Mg Tab) 75 mg PO DAILY [facility] Last Admin: 03/10/21 08:20 Dose: 75 mg Documented by: Dextrose/Water (50% Dextrose In Water 50 Ml Syringe) 25 ml IVPUSH Q15M PRN PRN Reason: Hypoglycemia Last Admin: 02/28/21 08:35 Dose: 25 ml Documented by: Dextrose/Water (50% Dextrose In Water 50 Ml Syringe) 50 ml IVPUSH Q15M PRN PRN Reason: Hypoglycemia Ezetimibe (Ezetimibe 10 Mg Tab) 10 mg PO BEDTIME [facility] Last Admin: 03/09/21 20:36 Dose: 10 mg Documented by: Enoxaparin Sodium (Enoxaparin 40 Mg/0.4 Ml Syringe) 40 mg SUBCUT DAILY [facility] Last Admin: 03/10/21 08:21 Dose: 40 mg Documented by: Ferrous Sulfate (Ferrous Sulfate 325 Mg Tab) 325 mg PO Q48H [facility] Last Admin: 03/10/21 08:21 Dose: 325 mg Documented by: Furosemide (Furosemide 40 Mg Tab) 40 mg PO DAILY [facility] Last Admin: 03/10/21 08:21 Dose: 40 mg Documented by: Glucagon (Glucagon,Human Recombinant 1 Mg Vial) 1 mg IM Q15M PRN PRN Reason: Hypoglycemia Insulin Glargine (Insulin Glarg,Human.Rec.Analog 100 Unit/Ml) 20 unit SUBCUT BEDTIME [facility] Last Admin: 03/09/21 20:40 Dose: 20 units Documented by: Insulin Human Lispro (Insulin Lispro 100 Units/Ml 3 Ml Vial) 0 unit SUBCUT WITHMEALSANDBED [facility]; Protocol Last Admin: 03/10/21 08:21 Dose: 2 units Documented by: Insulin Human Lispro (Insulin Lispro 100 Units/Ml 3 Ml Vial) 2 unit SUBCUT TI DMEALS [facility] Last Admin: 03/10/21 08:22 Dose: 2 units Documented by: Lisinopril (Lisinopril 10 Mg Tab) 10 mg PO DAILY [facility] Last Admin: 03/10/21 08:20 Dose: 10 mg Documented by: Melatonin (Melatonin 3 Mg Tab) 6 mg PO BEDTIME PRN PRN Reason: Sleep Last Admin: 03/09/21 01:42 CDT Dose: 6 mg Documented by: Nystatin (Nystatin Topical Powder 30 Gm Bottle) 1 gm TOP Q8H PRN PRN Reason: Rash Potassium Chloride (Potassium Chloride 10 Meq Tab.Er) 40 meq PO WITHBREAKFAST ERIN Stop: 03/11/21 08:16 Last Admin: 03/10/21 08:20 Dose: 40 meq Documented by: Trazodone HCl (Trazodone 50 Mg Tab) 50 mg PO BEDTIME [facility] Last Admin: 03/09/21 20:36 Dose: 50 mg Documented by: Zolpidem Tartrate (Zolpidem 5 Mg Tab) 5 mg PO BEDTIME PRN PRN Reason: Sleep Last Admin: 03/08/21 23:46 Dose: 5 mg Documented by: Discontinued Medications COVID-19 Vaccine mRNA LNP-S (PFR) (PF) (Covid-19 Vacc, Mrna(Pfizer)/Pf 30 Mcg/0.3 Ml Vial) 30 mcg IM .ONCE ONE Stop: 02/25/21 16:21 Last Admin: 02/25/21 17:11 Dose: Not Given Documented by: Carvedilol (Carvedilol 6.25 Mg Tab) 6.25 mg PO ONETIME ONE Stop: 02/19/21 12:28 Last Admin: 02/19/21 12:36 Dose: Not Given Documented by: Carvedilol (Carvedilol 3.125 Mg Tab) 3.125 mg PO BIDMEALS [facility] Last Admin: 02/28/21 09:52 Dose: 3.125 mg Documented by: Clopidogrel Bisulfate (Clopidogrel 75 Mg Tab) 225 mg PO ONETIME STA Stop: 02/17/21 11:11 Last Admin: 02/17/21 11:24 Dose: 225 mg Documented by: Dextrose/Water (50% Dextrose In Water 50 Ml Syringe) 50 ml IVPUSH Q15M PRN PRN Reason: Hypoglycemia Dextrose/Water (50% Dextrose In Water 50 Ml Syringe) 50 ml IVPUSH Q15M PRN PRN Reason: Hypoglycemia Dextrose/Water (50% Dextrose In Water 50 Ml Syringe) 50 ml IVPUSH Q15M PRN PRN Reason: Hypoglycemia Dextrose/Water (50% Dextrose In Water 50 Ml Syringe) Confirm Administered Dose 50 ml .ROUTE .STK-MED ONE Stop: 02/20/21 07:41 Last Admin: 02/20/21 08:14 Dose: Not Given Documented by: Dextrose/Water (50% Dextrose In Water 50 Ml Syringe) 50 ml IVPUSH ONETIME ONE Stop: 02/26/21 07:46 Last Admin: 02/26/21 07:45 Dose: 50 ml Documented by: Furosemide (Furosemide 20 Mg/2 Ml Vial) 20 mg IVPUSH ONETIME ONE Stop: 02/16/21 15:51 Last Admin: 02/16/21 15:54 Dose: 20 mg Documented by: Furosemide (Furosemide 40 Mg/4 Ml Vial) 40 mg IVPUSH ONETIME ONE Stop: 02/23/21 16:01 Last Admin: 02/23/21 16:00 Dose: 40 mg Documented by: Furosemide (Furosemide 20 Mg Tab) 20 mg PO DAILY [facility] Last Admin: 03/03/21 10:17 Dose: 20 mg Documented by: Furosemide (Furosemide 20 Mg Tab) 20 mg PO BIDDIURETIC [facility] Last Admin: 03/04/21 08:31 Dose: 20 mg Documented by: Furosemide (Furosemide 20 Mg/2 Ml Vial) 20 mg IVPUSH Q8H [facility] Last Admin: 03/07/21 05:58 Dose: 20 mg Documented by: Furosemide (Furosemide 40 Mg Tab) 40 mg PO DAILY [facility] Glucagon (Glucagon,Human Recombinant 1 Mg Vial) 1 mg IM Q15M PRN PRN Reason: Hypoglycemia Glucagon (Glucagon,Human Recombinant 1 Mg Vial) 1 mg IM Q15M PRN PRN Reason: Hypoglycemia Heparin Sodium (Porcine) (Heparin Sodium 5,000 Units/Ml Vial) 4,700 units IV ONETIME ONE Stop: 02/17/21 08:31 Last Admin: 02/17/21 08:34 Dose: 4,700 units Documented by: Heparin Sodium (Porcine) (Heparin Sodium 5,000 Units/Ml Vial) 1,000 units IVPUSH ONETIME ONE Stop: 02/17/21 22:56 Last Admin: 02/17/21 23:14 Dose: 1,000 units Documented by: Heparin Sodium (Porcine) (Heparin Sodium 5,000 Units/Ml Vial) 2,000 units IVPUSH .BOLUS ONE Stop: 02/18/21 09:18 Last Admin: 02/18/21 09:35 Dose: 2,000 units Documented by: Heparin Sodium (Porcine) (Heparin Sodium 5,000 Units/Ml Vial) 2,000 units I VPUSH ONETIME ONE Stop: 02/18/21 22:43 Last Admin: 02/18/21 22:55 Dose: 2,000 units Documented by: Sodium Chloride (Normal Saline) 1,000 mls @ 999 mls/hr IV .BOLUS ONE Stop: 02/16/21 15:00 Last Admin: 02/16/21 17:42 Dose: 999 mls/hr Documented by: Albumin Human (Buminate 5%) 250 mls @ 250 mls/hr IV ASDIRECTED ERIN Last Admin: 02/16/21 15:01 Dose: 250 mls/hr Documented by: Sodium Bicarbonate 100 meq/ (Dextrose/Water) 1,100 mls @ 100 mls/hr IV ONETIME ONE Stop: 02/17/21 02:02 Last Admin: 02/16/21 15:18 Dose: 100 mls/hr Documented by: Insulin Regular in 0.9 % NACL (Myxredlin In Ns 100 Unit/100 Ml) 100 unit in 100 mls @ 7.82 mls/hr IV TITRATE ERIN; Protocol Sodium Bicarbonate 100 meq/ (Dextrose/Water) 1,100 mls @ 999 mls/hr IV ONETIME ONE Stop: 02/16/21 18:27 Last Admin: 02/16/21 22:50 Dose: Not Given Documented by: Sodium Chloride (Normal Saline) 1,000 mls @ 250 mls/hr IV ASDIRECTED ERIN Insulin Regular in 0.9 % NACL (Myxredlin In Ns 100 Unit/100 Ml) 100 unit in 100 mls @ 7.82 mls/hr IV TITRATE ERIN; Protocol Last Titration: 02/17/21 02:36 Dose: 0 units/kg/hr, 0 mls/hr Documented by: Levofloxacin/Dextrose 500 mg/ (Premix) 100 mls @ 100 mls/hr IV Q24H REIN Last Admin: 02/16/21 20:54 Dose: 100 mls/hr Documented by: Sodium Chloride (Normal Saline) 1,000 mls @ 1,000 mls/hr IV ASDIRECTED [facility] Stop: 02/16/21 19:59 Last Admin: 02/16/21 19:02 Dose: 1,000 mls/hr Documented by: Potassium Chloride/Sodium Chloride (Normal Saline With 40 Meq Kcl) 1,000 mls @ 250 mls/hr IV ASDIRECTED [facility] Last Admin: 02/17/21 01:48 Dose: 250 mls/hr Documented by: Sodium Bicarbonate 100 meq/ (Dextrose/Water) 1,100 mls @ 150 mls/hr IV ONETIME ONE Stop: 02/17/21 10:39 Last Infusion: 02/17/21 07:55 Dose: 50 mls/hr Documented by: Heparin Sodium/Sodium Chloride (Heparin 25,000 Units In 1/2 Ns 500 Ml) 25,000 units in 500 mls @ 18.768 mls/hr IV TITRATE [facility]; Protocol Last Admin: 02/19/21 03:31 Dose: 22 units/kg/hr, 34.408 mls/hr Documented by: Levofloxacin/Dextrose 500 mg/ (Premix) 100 mls @ 100 mls/hr IV Q48H [facility] Last Admin: 02/18/21 17:21 Dose: 100 mls/hr Documented by: Lactated Ringer's (Ringers, Lactated) 1,000 mls @ 125 mls/hr IV ASDIRECTED [facility] Last Admin: 02/19/21 05:45 Dose: 125 mls/hr Documented by: Levofloxacin/Dextrose 750 mg/ (Premix) 150 mls @ 100 mls/hr IV Q24H [facility] Stop: 02/21/21 11:01 Last Admin: 02/21/21 11:15 Dose: 100 mls/hr Documented by: Potassium Chloride 20 meq/ (Premix) 100 mls @ 50 mls/hr IV ONETIME ONE Stop: 02/20/21 09:22 Last Admin: 02/20/21 08:00 Dose: 50 mls/hr Documented by: Calcium Gluconate 1 gm/ Sodium (Chloride) 110 mls @ 110 mls/hr IV ONETIME ONE Stop: 02/20/21 08:29 Last Admin: 02/20/21 08:14 Dose: 110 mls/hr Documented by: Albumin Human 50 gm/ Premix 200 mls @ 100 mls/hr IV NOW ONE Stop: 02/23/21 13:21 Last Admin: 02/23/21 12:12 Dose: 100 mls/hr Documented by: Insulin Glargine (Insulin Glarg,Human.Rec.Analog 100 Unit/Ml) 35 unit SUBCUT ONETIME ONE Stop: 02/17/21 04:13 Last Admin: 02/17/21 04:28 Dose: 35 units Documented by: Insulin Glargine (Insulin Glarg,Human.Rec.Analog 100 Unit/Ml) 20 unit SUBCUT ONETIME ONE Stop: 02/19/21 09:23 Last Admin: 02/19/21 09:57 Dose: 20 units Documented by: Insulin Glargine (Insulin Glarg,Human.Rec.Analog 100 Unit/Ml) 40 unit SUBCUT BEDTIME [facility] Last Admin: 02/19/21 21:47 Dose: 40 units Documented by: Insulin Glargine (Insulin Glarg,Human.Rec.Analog 100 Unit/Ml) 20 unit SUBCUT BEDTIME [facility] Last Admin: 03/05/21 20:55 Dose: 20 units Documented by: Insulin Glargine (Insulin Glarg,Human.Rec.Analog 100 Unit/Ml) 24 unit SUBCUT BEDTIME [facility] Last Admin: 03/06/21 20:47 Dose: 24 units Documented by: Insulin Human Lispro (Insulin Lispro 100 Units/Ml 3 Ml Vial) 5 unit SUBCUT ONETIME ONE Stop: 02/17/21 04:15 Last Admin: 02/17/21 04:29 Dose: 5 units Documented by: Insulin Human Lispro (Insulin Lispro 100 Units/Ml 3 Ml Vial) 0 unit SUBCUT WITHMEALSANDBED [facility]; Protocol Last Admin: 02/18/21 09:04 Dose: Not Given Documented by: Insulin Human Lispro (Insulin Lispro 100 Units/Ml 3 Ml Vial) 14 unit SUBCUT ONETIME ONE Stop: 02/19/21 12:27 Last Admin: 02/19/21 12:36 Dose: Not Given Documented by: Insulin Human Lispro (Insulin Lispro 100 Units/Ml 3 Ml Vial) 12 unit SUBCUT ONETIME ONE Stop: 02/19/21 12:27 Last Admin: 02/19/21 12:41 Dose: 12 units Documented by: Insulin Human Regular (Insulin Regular, Human 100 Units/Ml 3 Ml Vial) 5 unit IV ONETIME ONE Stop: 02/16/21 14:22 Last Admin: 02/16/21 14:59 Dose: 5 unit Documented by: Insulin Human Regular (Insulin Regular, Human 100 Units/Ml 3 Ml Vial) 10 unit IV STAT STA Stop: 02/16/21 17:11 Last Admin: 02/16/21 17:19 Dose: 10 units Documented by: Insulin Human Regular (Insulin Regular, Human 100 Units/Ml 3 Ml Vial) 10 unit IV ONETIME ONE Stop: 02/16/21 18:13 Last Admin: 02/16/21 18:14 Dose: 10 units Documented by: Lisinopril (Lisinopril 5 Mg Tab) 2.5 mg PO DAILY [facility] Metolazone (Metolazone 2.5 Mg Tab) 5 mg PO ONETIME ONE Stop: 02/27/21 06:01 Last Admin: 02/27/21 06:07 Dose: 5 mg Documented by: Nitroglycerin (Nitroglycerin 0.4 Mg Tab.Sl) 0.4 mg SL ONETIME ONE Stop: 02/18/21 15:41 Last Admin: 02/18/21 15:47 Dose: 0.4 mg Documented by: Nystatin (Nystatin Topical Powder 30 Gm Bottle) 0 gm TOP Q8H [facility] Last Admin: 02/19/21 03:43 Dose: 1 applic Documented by: Nystatin (Nystatin Topical Powder 30 Gm Bottle) 0 gm TOP Q8HR [facility] Last Admin: 02/28/21 22:12 Dose: 1 applic Documented by: Potassium Chloride (Potassium Chloride 10 Meq Tab.Er) 40 meq PO ONETIME ONE Stop: 02/17/21 03:20 Last Admin: 02/17/21 07:20 Dose: Not Given Documented by: Potassium Chloride (Potassium Chloride 10 Meq Tab.Er) 40 meq PO ONETIME ONE Stop: 02/17/21 07:52 Last Admin: 02/17/21 08:43 Dose: 40 meq Documented by: Potassium Chloride (Potassium Chloride 10% 20 Meq/15 Ml Soln 15 Ml Ud Cup) 40 meq PO ONETIME ONE Stop: 02/17/21 17:01 Last Admin: 02/17/21 17:41 Dose: 40 meq Documented by: Potassium Chloride (Potassium Chloride 10 Meq Tab.Er) 20 meq PO DAILY [facility] Potassium Chloride (Potassium Chloride 10 Meq Tab.Er) 20 meq PO BID [facility] Stop: 03/08/21 21:01 Last Admin: 03/08/21 20:53 Dose: 20 meq Documented by: Sodium Bicarbonate (Sodium Bicarbonate 8.4% 50 Meq/50 Ml Syringe) 50 meq IVPUSH ONETIME ONE Stop: 02/16/21 15:04 Last Admin: 02/16/21 15:08 Dose: 50 meq Documented by: Sodium Bicarbonate (Sodium Bicarbonate 8.4% 50 Meq/50 Ml Syringe) 100 meq IVPUSH ONETIME ONE Stop: 02/16/21 17:24 Last Admin: 02/16/21 17:49 Dose: 100 meq Documented by: Zolpidem Tartrate (Zolpidem 5 Mg Tab) 5 mg PO ONETIME ONE Stop: 02/18/21 22:06 Last Admin: 02/18/21 22:17 Dose: 5 mg Documented by: Zolpidem Tartrate (Zolpidem 5 Mg Tab) 5 mg PO ONETIME ONE Stop: 02/20/21 00:18 Last Admin: 02/20/21 00:38 Dose: 5 mg Documented by: - Exam Urinary Catheter Total Time: 2Days 13Hours Physical Findings Comments:: General: Well developed female. In no acute distress. CVS: S1S2 appreciated. RRR lungs: clear with no rales or wheezes pa: soft, non tender. bowel sounds are present ext: no clubbing cyanosis or edema. neuro: moves all extremities. Unable to ambulate on her own due to lower extremity weakness 3/5 bilateral lower extremities and 5/5 bilateral upper extremities. psych: stable mood and affect. - Patient Data Lab Results Last 24 hrs: Laboratory Results - last 24 hr 03/09/21 03/09/21 03/10/21 Range/Units 16:40 20:34 05:45 Sodium 144 (136-145) mmol/L Potassium 3.9 (3.5-5.1) mmol/L Chloride 108 H (98-107) mmol/L Carbon Dioxide 26 (21-32) mmol/L Anion Gap 13.9 H (7-13) mEq/L BUN 18 (7-18) mg/dL Creatinine 0.69 (0.55-1.02) mg/dL Est Cr Clr Drug Dosing 73.78 mL/min Estimated GFR (MDRD) > 60 Glucose 184 H (70-99) mg/dL POC Glucose 225 H 230 H (70-99) mg/dL Calcium 8.3 L (8.5-10.1) mg/dL 03/10/21 Range/Units 07:43 Sodium (136-145) mmol/L Potassium (3.5-5.1) mmol/L Chloride (98-107) mmol/L Carbon Dioxide (21-32) mmol/L Anion Gap (7-13) mEq/L BUN (7-18) mg/dL Creatinine (0.55-1.02) mg/dL Est Cr Clr Drug Dosing mL/min Estimated GFR (MDRD) Glucose (70-99) mg/dL POC Glucose 182 H (70-99) mg/dL Calcium (8.5-10.1) mg/dL Result Diagrams: 03/04/21 06:05 03/10/21 05:45 Sepsis Event Note - Evaluation Sepsis Screening Result: No Definite Risk - Focused Exam Vital Signs: Vital Signs Temp Pulse Pulse Resp BP BP Pulse Ox 03/10/21 11:42 97.5 F 69 18 141/67 H 97 03/10/21 08:20 70 143/73 H 03/10/21 08:00 97.1 F 70 18 143/63 H 98 03/10/21 04:00 97.8 F 65 20 146/72 H 98 - Problem List Review Problem List Initiated/Reviewed/Updated: Yes - Assessment Assessment:: Assessment: Generalized weakness: continue with PT/OT SNF placement. Failure to thrive Had a care conference with Coreen, staff from the [facility], staff from the [facility], and her daughter. See social work note for details of the plan. Essentially, Coreen will be referred to detention facility for rehab and for optimizing her diabetes control. Continuous glucose monitor and regular physical therapy visits. Uncontrolled type 2 diabetes mellitus, insulin-dependent Coreen has become a brittle diabetic. Her blood sugars 2 days ago were in the 200s, so her Lantus was increased from 20 to 24 units at bedtime. But yesterday, she slept and did not eat as much as she normally does at night and the following morning her glucose was 47. She was asymptomatic at that time. Coreen states that she was denied food and fluid but nursing staff stated that she was sleeping for the whole night. Diabetic diet continue with the 2 units prandial with meals, 3 times daily Continue lantus 20units daily Continue with sliding scale insulin Continue lisinopril Hypoglycemia protocol Acute coronary syndrome, resolved treat CAD with asa, Plavix cont coreg, zetia, lisinopril Chronic congestive heart failure Will need echo after discharge to further characterize Stable Hypokalemia On oral replacement. DKA with unresponsiveness Resolved H/o cerebrovascular accident: medical management . antiplatelets, BP control. Cont pt/ot as tolerated Nursing is watching her skin carefully for signs of breakdown VTE prophylaxis: SQ Lovenox Discharge planning : to SNF when bed available. - Plan Plan:: reviewed care plan with team / awaiting n.h placement as she is non ambulitory and using thang lift. family cannot care for her. ongoing diuresis try to get her into compression stocking and therapy ? managment of diabetes. man of chf.ongoing lasix i.v.. consider spironolactone. maybe entresto if echo supportive. cad stable . anemia stable boh
[2021-03-10] MEDS: Melatonin 3 MG Tab PO PRN (21:04)
[2021-03-10] MEDS: Ezetimibe 10 MG Tab PO SCH (21:04)
[2021-03-10] MEDS: Insulin Glarg,Human.Rec.Analog 100 Unit/ML SUBCUT SCH (21:04)
[2021-03-10] MEDS: traZODone 50 MG Tab PO SCH (21:04)
[2021-03-11] MEDS: Clopidogrel 75 MG Tab PO SCH (09:14)
[2021-03-11] MEDS: Aspirin 81 MG Tab.EC PO SCH (09:14)
[2021-03-11] MEDS: Furosemide 40 MG Tab PO SCH (09:15)
[2021-03-11] MEDS: Lisinopril 10 MG Tab PO SCH (09:15)
[2021-03-11] MEDS: Potassium Chloride 10 MEQ Tab.ER PO SCH (09:15)
[2021-03-11] MEDS: Carvedilol 3.125 MG Tab PO SCH ×2 (09:15→16:59)
[2021-03-11] MEDS: Insulin Lispro 100 Units/ML 3 ML Vial SUBCUT SCH ×7 (09:15→21:03)
[2021-03-11] MEDS: Enoxaparin 40 MG/0.4 ML Syringe SUBCUT SCH (09:15)
--- NOTE | 2021-03-11 11:03 | PCM.PN ---
- General Info Date of Service: 03/11/21 Admission Dx/Problem (Free Text): Patient slept well last night. She has no new complaint this morning. She remains afebrile. Her appetite is not great but okay. - Patient Data Vitals - Most Recent: Last Vital Signs Temp 97.7 F 03/11/21 08:00 Pulse 65 03/11/21 09:15 Resp 18 03/11/21 08:00 BP 122/65 03/11/21 09:15 Pulse Ox 68 L 03/11/21 08:00 Weight - Most Recent: 179 lb 0.246 oz I&O - Last 24 Hours: Intake & Output 03/10/21 03/11/21 03/11/21 22:59 06:59 14:59 Intake Total 200 240 Balance 200 240 Lab Results Last 24 Hours: Laboratory Results - last 24 hr 03/10/21 03/10/21 03/10/21 Range/Units 11:30 16:28 20:28 POC Glucose 196 H 310 H 310 H (70-99) mg/dL 03/11/21 Range/Units 07:34 POC Glucose 175 H (70-99) mg/dL Med Orders - Current: Current Medications Acetaminophen (Acetaminophen 500 Mg Tab) 500 mg PO Q4H PRN PRN Reason: Pain/Fever Last Admin: 03/09/21 20:36 Dose: 500 mg Documented by: Aspirin (Aspirin 81 Mg Tab.Ec) 81 mg PO DAILY [facility] Last Admin: 03/11/21 09:14 Dose: 81 mg Documented by: Carvedilol (Carvedilol 3.125 Mg Tab) 6.25 mg PO BIDMEALS [facility] Last Admin: 03/11/21 09:15 Dose: 6.25 mg Documented by: Clopidogrel Bisulfate (Clopidogrel 75 Mg Tab) 75 mg PO DAILY [facility] Last Admin: 03/11/21 09:14 Dose: 75 mg Documented by: Dextrose/Water (50% Dextrose In Water 50 Ml Syringe) 25 ml IVPUSH Q15M PRN PRN Reason: Hypoglycemia Last Admin: 02/28/21 08:35 Dose: 25 ml Documented by: Dextrose/Water (50% Dextrose In Water 50 Ml Syringe) 50 ml IVPUSH Q15M PRN PRN Reason: Hypoglycemia Ezetimibe (Ezetimibe 10 Mg Tab) 10 mg PO BEDTIME [facility] Last Admin: 03/10/21 21:04 Dose: 10 mg Documented by: Enoxaparin Sodium (Enoxaparin 40 Mg/0.4 Ml Syringe) 40 mg SUBCUT DAILY [facility] Last Admin: 03/11/21 09:15 Dose: 40 mg Documented by: Ferrous Sulfate (Ferrous Sulfate 325 Mg Tab) 325 mg PO Q48H [facility] Last Admin: 03/10/21 12:13 Dose: 325 mg Documented by: Furosemide (Furosemide 40 Mg Tab) 40 mg PO DAILY [facility] Last Admin: 03/11/21 09:15 Dose: 40 mg Documented by: Glucagon (Glucagon,Human Recombinant 1 Mg Vial) 1 mg IM Q15M PRN PRN Reason: Hypoglycemia Insulin Glargine (Insulin Glarg,Human.Rec.Analog 100 Unit/Ml) 20 unit SUBCUT BEDTIME [facility] Last Admin: 03/10/21 21:04 Dose: 20 units Documented by: Insulin Human Lispro (Insulin Lispro 100 Units/Ml 3 Ml Vial) 0 unit SUBCUT WITHMEALSANDBED [facility]; Protocol Last Admin: 03/11/21 09:16 Dose: 2 units Documented by: Insulin Human Lispro (Insulin Lispro 100 Units/Ml 3 Ml Vial) 2 unit SUBCUT TIDMEALS [facility] Last Admin: 03/11/21 09:15 Dose: 2 units Documented by: Lisinopril (Lisinopril 10 Mg Tab) 10 mg PO DAILY [facility] Last Admin: 03/11/21 09:15 Dose: 10 mg Documented by: Melatonin (Melatonin 3 Mg Tab) 6 mg PO BEDTIME PRN PRN Reason: Sleep Last Admin: 03/10/21 21:04 Dose: 6 mg Documented by: Nystatin (Nystatin Topical Powder 30 Gm Bottle) 1 gm TOP Q8H PRN PRN Reason: Rash Pantoprazole Sodium (Pantoprazole 40 Mg Tab.Cr) 40 mg PO ACBREAKFAST [facility] Trazodone HCl (Trazodone 50 Mg Tab) 50 mg PO BEDTIME [facility] Last Admin: 03/10/21 21:04 Dose: 50 mg Documented by: Zolpidem Tartrate (Zolpidem 5 Mg Tab) 5 mg PO BEDTIME PRN PRN Reason: Sleep Last Admin: 03/08/21 23:46 Dose: 5 mg Documented by: Discontinued Medications COVID-19 Vaccine mRNA LNP-S (PFR) (PF) (Covid-19 Vacc, Mrna(Pfizer)/Pf 30 Mcg/0.3 Ml Vial) 30 mcg IM .ONCE ONE Stop: 02/25/21 16:21 Last Admin: 02/25/21 17:11 Dose: Not Given Documented by: Carvedilol (Carvedilol 6.25 Mg Tab) 6.25 mg PO ONETIME ONE Stop: 02/19/21 12:28 Last Admin: 02/19/21 12:36 Dose: Not Given Documented by: Carvedilol (Carvedilol 3.125 Mg Tab) 3.125 mg PO BIDMEALS [facility] Last Admin: 02/28/21 09:52 Dose: 3.125 mg Documented by: Clopidogrel Bisulfate (Clopidogrel 75 Mg Tab) 225 mg PO ONETIME STA Stop: 02/17/21 11:11 Last Admin: 02/17/21 11:24 Dose: 225 mg Documented by: Dextrose/Water (50% Dextrose In Water 50 Ml Syringe) 50 ml IVPUSH Q15M PRN PRN Reason: Hypoglycemia Dextrose/Water (50% Dextrose In Water 50 Ml Syringe) 50 ml IVPUSH Q15M PRN PRN Reason: Hypoglycemia Dextrose/Water (50% Dextrose In Water 50 Ml Syringe) 50 ml IVPUSH Q15M PRN PRN Reason: Hypoglycemia Dextrose/Water (50% Dextrose In Water 50 Ml Syringe) Confirm Administered Dose 50 ml .ROUTE .STK-MED ONE Stop: 02/20/21 07:41 Last Admin: 02/20/21 08:14 Dose: Not Given Documented by: Dextrose/Water (50% Dextrose In Water 50 Ml Syringe) 50 ml IVPUSH ONETIME ONE Stop: 02/26/21 07:46 Last Admin: 02/26/21 07:45 Dose: 50 ml Documented by: Furosemide (Furosemide 20 Mg/2 Ml Vial) 20 mg IVPUSH ONETIME ONE Stop: 02/16/21 15:51 Last Admin: 02/16/21 15:54 Dose: 20 mg Documented by: Furosemide (Furosemide 40 Mg/4 Ml Vial) 40 mg IVPUSH ONETIME ONE Stop: 02/23/21 16:01 Last Admin: 02/23/21 16:00 Dose: 40 mg Documented by: Furosemide (Furosemide 20 Mg Tab) 20 mg PO DAILY [facility] Last Admin: 03/03/21 10:17 Dose: 20 mg Documented by: Furosemide (Furosemide 20 Mg Tab) 20 mg PO BIDDIURETIC [facility] Last Admin: 03/04/21 08:31 Dose: 20 mg Documented by: Furosemide (Furosemide 20 Mg/2 Ml Vial) 20 mg IVPUSH Q8H ERIN Last Admin: 03/07/21 05:58 Dose: 20 mg Documented by: Furosemide (Furosemide 40 Mg Tab) 40 mg PO DAILY ER[facility] Glucagon (Glucagon,Human Recombinant 1 Mg Vial) 1 mg IM Q15M PRN PRN Reason: Hypoglycemia Glucagon (Glucagon,Human Recombinant 1 Mg Vial) 1 mg IM Q15M PRN PRN Reason: Hypoglycemia Heparin Sodium (Porcine) (Heparin Sodium 5,000 Units/Ml Vial) 4,700 units IV ONETIME ONE Stop: 02/17/21 08:31 Last Admin: 02/17/21 08:34 Dose: 4,700 units Documented by: Heparin Sodium (Porcine) (Heparin Sodium 5,000 Units/Ml Vial) 1,000 units IVPUSH ONETIME ONE Stop: 02/17/21 22:56 Last Admin: 02/17/21 23:14 Dose: 1,000 units Documented by: Heparin Sodium (Porcine) (Heparin Sodium 5,000 Units/Ml Vial) 2,000 units IVPUSH .BOLUS ONE Stop: 02/18/21 09:18 Last Admin: 02/18/21 09:35 Dose: 2,000 units Documented by: Heparin Sodium (Porcine) (Heparin Sodium 5,000 Units/Ml Vial) 2,000 units IVPUSH ONETIME ONE Stop: 02/18/21 22:43 Last Admin: 02/18/21 22:55 Dose: 2,000 units Documented by: Sodium Chloride (Normal Saline) 1,000 mls @ 999 mls/hr IV .BOLUS ONE Stop: 02/16/21 15:00 Last Admin: 02/16/21 17:42 Dose: 999 mls/hr Documented by: Albumin Human (Buminate 5%) 250 mls @ 250 mls/hr IV ASDIRECTED [facility] Last Admin: 02/16/21 15:01 Dose: 250 mls/hr Documented by: Sodium Bicarbonate 100 meq/ (Dextrose/Water) 1,100 mls @ 100 mls/hr IV ONETIME ONE Stop: 02/17/21 02:02 Last Admin: 02/16/21 15:18 Dose: 100 mls/hr Documented by: Insulin Regular in 0.9 % NACL (Myxredlin In Ns 100 Unit/100 Ml) 100 unit in 100 mls @ 7.82 mls/hr IV TITRATE ERIN; Protocol Sodium Bicarbonate 100 meq/ (Dextrose/Water) 1,100 mls @ 999 mls/hr IV ONETIME ONE Stop: 02/16/21 18:27 Last Admin: 02/16/21 22:50 Dose: Not Given Documented by: Sodium Chloride (Normal Saline) 1,000 mls @ 250 mls/hr IV ASDIRECTED ERIN Insulin Regular in 0.9 % NACL (Myxredlin In Ns 100 Unit/100 Ml) 100 unit in 100 mls @ 7.82 mls/hr IV TITRATE ERIN; Protocol Last Titration: 02/17/21 02:36 Dose: 0 units/kg/hr, 0 mls/hr Documented by: Levofloxacin/Dextrose 500 mg/ (Premix) 100 mls @ 100 mls/hr IV Q24H ERIN Last Admin: 02/16/21 20:54 Dose: 100 mls/hr Documented by: Sodium Chloride (Normal Saline) 1,000 mls @ 1,000 mls/hr IV ASDIRECTED ERIN Stop: 02/16/21 19:59 Last Admin: 02/16/21 19:02 Dose: 1,000 mls/hr Documented by: Potassium Chloride/Sodium Chloride (Normal Saline With 40 Meq Kcl) 1,000 mls @ 250 mls/hr IV ASDIRECTED ERIN Last Admin: 02/17/21 01:48 Dose: 250 mls/hr Documented by: Sodium Bicarbonate 100 meq/ (Dextrose/Water) 1,100 mls @ 150 mls/hr IV ONETIME ONE Stop: 02/17/21 10:39 Last Infusion: 02/17/21 07:55 Dose: 50 mls/hr Documented by: Heparin Sodium/Sodium Chloride (Heparin 25,000 Units In 1/2 Ns 500 Ml) 25,000 units in 500 mls @ 18.768 mls/hr IV TITRATE ERIN; Protocol Last Admin: 02/19/21 03:31 Dose: 22 units/kg/hr, 34.408 mls/hr Documented by: Levofloxacin/Dextrose 500 mg/ (Premix) 100 mls @ 100 mls/hr IV Q48H ERIN Last Admin: 02/18/21 17:21 Dose: 100 mls/hr Documented by: Lactated Ringer's (Ringers, Lactated) 1,000 mls @ 125 mls/hr IV ASDIRECTED [facility] Last Admin: 02/19/21 05:45 Dose: 125 mls/hr Documented by: Levofloxacin/Dextrose 750 mg/ (Premix) 150 mls @ 100 mls/hr IV Q24H ERIN Stop: 02/21/21 11:01 Last Admin: 02/21/21 11:15 Dose: 100 mls/hr Documented by: Potassium Chloride 20 meq/ (Premix) 100 mls @ 50 mls/hr IV ONETIME ONE Stop: 02/20/21 09:22 Last Admin: 02/20/21 08:00 Dose: 50 mls/hr Documented by: Calcium Gluconate 1 gm/ Sodium (Chloride) 110 mls @ 110 mls/hr IV ONETIME ONE Stop: 02/20/21 08:29 Last Admin: 02/20/21 08:14 Dose: 110 mls/hr Documented by: Albumin Human 50 gm/ Premix 200 mls @ 100 mls/hr IV NOW ONE Stop: 02/23/21 13:21 Last Admin: 02/23/21 12:12 Dose: 100 mls/hr Documented by: Insulin Glargine (Insulin Glarg,Human.Rec.Analog 100 Unit/Ml) 35 unit SUBCUT ONETIME ONE Stop: 02/17/21 04:13 Last Admin: 02/17/21 04:28 Dose: 35 units Documented by: Insulin Glargine (Insulin Glarg,Human.Rec.Analog 100 Unit/Ml) 20 unit SUBCUT ONETIME ONE Stop: 02/19/21 09:23 Last Admin: 02/19/21 09:57 Dose: 20 units Documented by: Insulin Glargine (Insulin Glarg,Human.Rec.Analog 100 Unit/Ml) 40 unit SUBCUT BEDTIME [facility] Last Admin: 02/19/21 21:47 Dose: 40 units Documented by: Insulin Glargine (Insulin Glarg,Human.Rec.Analog 100 Unit/Ml) 20 unit SUBCUT BEDTIME [facility] Last Admin: 03/05/21 20:55 Dose: 20 units Documented by: Insulin Glargine (Insulin Glarg,Human.Rec.Analog 100 Unit/Ml) 24 unit SUBCUT BEDTIME [facility] Last Admin: 03/06/21 20:47 Dose: 24 units Documented by: Insulin Human Lispro (Insulin Lispro 100 Units/Ml 3 Ml Vial) 5 unit SUBCUT ONETIME ONE Stop: 02/17/21 04:15 Last Admin: 02/17/21 04:29 Dose: 5 units Documented by: Insulin Human Lispro (Insulin Lispro 100 Units/Ml 3 Ml Vial) 0 unit SUBCUT WITHMEALSANDBED [facility]; Protocol Last Admin: 02/18/21 09:04 Dose: Not Given Documented by: Insulin Human Lispro (Insulin Lispro 100 Units/Ml 3 Ml Vial) 14 unit SUBCUT ONETIME ONE Stop: 02/19/21 12:27 Last Admin: 02/19/21 12:36 Dose: Not Given Documented by: Insulin Human Lispro (Insulin Lispro 100 Units/Ml 3 Ml Vial) 12 unit SUBCUT ONETIME ONE Stop: 02/19/21 12:27 Last Admin: 02/19/21 12:41 Dose: 12 units Documented by: Insulin Human Regular (Insulin Regular, Human 100 Units/Ml 3 Ml Vial) 5 unit IV ONETIME ONE Stop: 02/16/21 14:22 Last Admin: 02/16/21 14:59 Dose: 5 unit Documented by: Insulin Human Regular (Insulin Regular, Human 100 Units/Ml 3 Ml Vial) 10 unit IV STAT STA Stop: 02/16/21 17:11 Last Admin: 02/16/21 17:19 Dose: 10 units Documented by: Insulin Human Regular (Insulin Regular, Human 100 Units/Ml 3 Ml Vial) 10 unit IV ONETIME ONE Stop: 02/16/21 18:13 Last Admin: 02/16/21 18:14 Dose: 10 units Documented by: Lisinopril (Lisinopril 5 Mg Tab) 2.5 mg PO DAILY [facility] Metolazone (Metolazone 2.5 Mg Tab) 5 mg PO ONETIME ONE Stop: 02/27/21 06:01 Last Admin: 02/27/21 06:07 Dose: 5 mg Documented by: Nitroglycerin (Nitroglycerin 0.4 Mg Tab.Sl) 0.4 mg SL ONETIME ONE Stop: 02/18/21 15:41 Last Admin: 02/18/21 15:47 Dose: 0.4 mg Documented by: Nystatin (Nystatin Topical Powder 30 Gm Bottle) 0 gm TOP Q8H [facility] Last Admin: 02/19/21 03:43 Dose: 1 applic Documented by: Nystatin (Nystatin Topical Powder 30 Gm Bottle) 0 gm TOP Q8HR [facility] Last Admin: 02/28/21 22:12 Dose: 1 applic Documented by: Potassium Chloride (Potassium Chloride 10 Meq Tab.Er) 40 meq PO ONETIME ONE Stop: 02/17/21 03:20 Last Admin: 02/17/21 07:20 Dose: Not Given Documented by: Potassium Chloride (Potassium Chloride 10 Meq Tab.Er) 40 meq PO ONETIME ONE Stop: 02/17/21 07:52 Last Admin: 02/17/21 08:43 Dose: 40 meq Documented by: Potassium Chloride (Potassium Chloride 10% 20 Meq/15 Ml Soln 15 Ml Ud Cup) 40 meq PO ONETIME ONE Stop: 02/17/21 17:01 Last Admin: 02/17/21 17:41 Dose: 40 meq Documented by: Potassium Chloride (Potassium Chloride 10 Meq Tab.Er) 20 meq PO DAILY [facility] Potassium Chloride (Potassium Chloride 10 Meq Tab.Er) 40 meq PO WITHBREAKFAST [facility] Stop: 03/11/21 08:16 Last Admin: 03/11/21 09:15 Dose: 40 meq Documented by: Potassium Chloride (Potassium Chloride 10 Meq Tab.Er) 20 meq PO BID [facility] Stop: 03/08/21 21:01 Last Admin: 03/08/21 20:53 Dose: 20 meq Documented by: Sodium Bicarbonate (Sodium Bicarbonate 8.4% 50 Meq/50 Ml Syringe) 50 meq IVPUSH ONETIME ONE Stop: 02/16/21 15:04 Last Admin: 02/16/21 15:08 Dose: 50 meq Documented by: Sodium Bicarbonate (Sodium Bicarbonate 8.4% 50 Meq/50 Ml Syringe) 100 meq IVPUSH ONETIME ONE Stop: 02/16/21 17:24 Last Admin: 02/16/21 17:49 Dose: 100 meq Documented by: Zolpidem Tartrate (Zolpidem 5 Mg Tab) 5 mg PO ONETIME ONE Stop: 02/18/21 22:06 Last Admin: 02/18/21 22:17 Dose: 5 mg Documented by: Zolpidem Tartrate (Zolpidem 5 Mg Tab) 5 mg PO ONETIME ONE Stop: 02/20/21 00:18 Last Admin: 02/20/21 00:38 Dose: 5 mg Documented by: - Exam Urinary Catheter Total Time: 2Days 13Hours Physical Findings Comments:: General: Elderly female. Awake and alert. In no acute distress CVS: S1 is appreciated regular rhythm no murmurs rubs or gallops Lungs: Diminished bilaterally but clear to auscultation with no rales or wheezes Abdomen: Soft nontender, bowel sounds present. Extremities: There is no clubbing, cyanosis or edema. Peripheral is 2+ Neuro: Sensations intact. Strength is 3 out of 5 both lower extremities and 5 out of 5 in both upper extremities. Gait not examined Psych: Stable mood and affect. - Patient Data Lab Results Last 24 hrs: Laboratory Results - last 24 hr 03/10/21 03/10/21 03/10/21 Range/Units 11:30 16:28 20:28 POC Glucose 196 H 310 H 310 H (70-99) mg/dL 03/11/21 Range/Units 07:34 POC Glucose 175 H (70-99) mg/dL Result Diagrams: 03/04/21 06:05 03/10/21 05:45 Sepsis Event Note - Evaluation Sepsis Screening Result: No Definite Risk - Focused Exam Vital Signs: Vital Signs Temp Pulse Pulse Resp BP BP BP 03/11/21 09:15 65 122/65 03/11/21 08:00 97.7 F 68 18 118/56 L 03/11/21 03:03 97.8 F 65 18 122/65 03/11/21 00:00 98.0 F 68 18 105/53 L Pulse Ox 03/11/21 09:15 03/11/21 08:00 68 L 03/11/21 03:03 94 L 03/11/21 00:00 95 - Problem List Review Problem List Initiated/Reviewed/Updated: Yes - My Orders Last 24 Hours: My Active Orders 03/11/21 09:23 Discontinue Saline Lock [Peripheral IV Discontinue] [OM.PC] Routine 03/12/21 06:00 Pantoprazole [ProTONIX] 40 mg PO ACBREAKFAST - Assessment Assessment:: Assessment: Generalized weakness: continue with PT/OT Awaiting SNF placement. Failure to thrive Had a care conference with Coreen, staff from [facility], staff from the hospital, and her daughter. See social work note for details of the plan. Essentially, Coreen will be referred to retirement facility for rehab and for optimizing her diabetes control. Continuous glucose monitor and regular physical therapy visits. Uncontrolled type 2 diabetes mellitus, insulin-dependent continue with home meds. Demand Ischemia. Resolved. Pt has a h/o CAD and is on Asa, Plavix continue with coreg, zetia, lisinopril Chronic congestive heart failure- stable Will need echo after discharge to further characterize Hypokalemia On oral replacement. H/o cerebrovascular accident: medical management . antiplatelets, BP control. VTE prophylaxis: SQ Lovenox Discharge planning : to SNF when bed available. - Plan Plan:: reviewed care plan with team / awaiting n.h placement as she is non ambulitory and using thang lift. family cannot care for her. ongoing diuresis try to get her into compression stocking and therapy ? managment of diabetes. man of chf.ongoing lasix i.v.. consider spironolactone. maybe entresto if echo supportive. cad stable . anemia stable boh
[2021-03-11] MEDS: traZODone 50 MG Tab PO SCH (21:01)
[2021-03-11] MEDS: Ezetimibe 10 MG Tab PO SCH (21:01)
[2021-03-11] MEDS: Melatonin 3 MG Tab PO PRN (21:01)
[2021-03-11] MEDS: Insulin Glarg,Human.Rec.Analog 100 Unit/ML SUBCUT SCH (21:04)
[2021-03-12] MEDS: Pantoprazole 40 MG Tab.CR PO SCH (05:40)
[2021-03-12] MEDS: Insulin Lispro 100 Units/ML 3 ML Vial SUBCUT SCH ×7 (08:50→20:27)
[2021-03-12] MEDS: Enoxaparin 40 MG/0.4 ML Syringe SUBCUT SCH (08:51)
[2021-03-12] MEDS: Carvedilol 3.125 MG Tab PO SCH ×2 (08:51→17:35)
[2021-03-12] MEDS: Lisinopril 10 MG Tab PO SCH (08:52)
[2021-03-12] MEDS: Aspirin 81 MG Tab.EC PO SCH (08:52)
[2021-03-12] MEDS: Furosemide 40 MG Tab PO SCH (08:52)
[2021-03-12] MEDS: Ferrous Sulfate 325 MG Tab PO SCH (08:52)
[2021-03-12] MEDS: Clopidogrel 75 MG Tab PO SCH (08:52)
--- NOTE | 2021-03-12 12:27 | PCM.PN ---
- General Info Date of Service: 03/12/21 Admission Dx/Problem (Free Text): She has no new complaint this morning. She remains afebrile. she is in good mood Subjective Update: No new issues reported. Afebrile. Pt is waiting for a SNF bed for discharge. - Review of Systems General: Reports: Weakness. Denies: Fever Pulmonary: Denies: Shortness of Breath Cardiovascular: Denies: Chest Pain, Edema Neurological: Denies: Confusion - Patient Data Vitals - Most Recent: Last Vital Signs Temp 97.1 F 03/12/21 12:00 Pulse 69 03/12/21 12:00 Resp 18 03/12/21 12:00 BP 111/56 L 03/12/21 12:00 Pulse Ox 97 03/12/21 12:00 Weight - Most Recent: 163 lb 9.6 oz I&O - Last 24 Hours: Intake & Output 03/11/21 03/12/21 03/12/21 22:59 06:59 14:59 Intake Total 60 60 Balance 60 60 Lab Results Last 24 Hours: Laboratory Results - last 24 hr 03/11/21 03/11/21 03/12/21 Range/Units 16:25 20:45 07:42 POC Glucose 372 H 182 H 167 H (70-99) mg/dL 03/12/21 Range/Units 11:14 POC Glucose 258 H (70-99) mg/dL Med Orders - Current: Current Medications Acetaminophen (Acetaminophen 500 Mg Tab) 500 mg PO Q4H PRN PRN Reason: Pain/Fever Last Admin: 03/09/21 20:36 Dose: 500 mg Documented by: Aspirin (Aspirin 81 Mg Tab.Ec) 81 mg PO DAILY [facility] Last Admin: 03/12/21 08:52 Dose: 81 mg Documented by: Carvedilol (Carvedilol 3.125 Mg Tab) 6.25 mg PO BIDMEALS [facility] Last Admin: 03/12/21 08:51 Dose: 6.25 mg Documented by: Clopidogrel Bisulfate (Clopidogrel 75 Mg Tab) 75 mg PO DAILY [facility] Last Admin: 03/12/21 08:52 Dose: 75 mg Documented by: Dextrose/Water (50% Dextrose In Water 50 Ml Syringe) 25 ml IVPUSH Q15M PRN PRN Reason: Hypoglycemia Last Admin: 02/28/21 08:35 Dose: 25 ml Documented by: Dextrose/Water (50% Dextrose In Water 50 Ml Syringe) 50 ml IVPUSH Q15M PRN PRN Reason: Hypoglycemia Ezetimibe (Ezetimibe 10 Mg Tab) 10 mg PO BEDTIME [facility] Last Admin: 03/11/21 21:01 Dose: 10 mg Documented by: Enoxaparin Sodium (Enoxaparin 40 Mg/0.4 Ml Syringe) 40 mg SUBCUT DAILY [facility] Last Admin: 03/12/21 08:51 Dose: 40 mg Documented by: Ferrous Sulfate (Ferrous Sulfate 325 Mg Tab) 325 mg PO Q48H [facility] Last Admin: 03/12/21 08:52 Dose: 325 mg Documented by: Furosemide (Furosemide 40 Mg Tab) 40 mg PO DAILY [facility] Last Admin: 03/12/21 08:52 Dose: 40 mg Documented by: Glucagon (Glucagon,Human Recombinant 1 Mg Vial) 1 mg IM Q15M PRN PRN Reason: Hypoglycemia Insulin Glargine (Insulin Glarg,Human.Rec.Analog 100 Unit/Ml) 20 unit SUBCUT BEDTIME [facility] Last Admin: 03/11/21 21:04 Dose: 20 units Documented by: Insulin Human Lispro (Insulin Lispro 100 Units/Ml 3 Ml Vial) 0 unit SUBCUT WITHMEALSANDBED [facility]; Protocol Last Admin: 03/12/21 08:50 Dose: 2 units Documented by: Insulin Human Lispro (Insulin Lispro 100 Units/Ml 3 Ml Vial) 2 unit SUBCUT TI DMEALS [facility] Last Admin: 03/12/21 08:50 Dose: 2 units Documented by: Lisinopril (Lisinopril 10 Mg Tab) 10 mg PO DAILY [facility] Last Admin: 03/12/21 08:52 Dose: 10 mg Documented by: Melatonin (Melatonin 3 Mg Tab) 6 mg PO BEDTIME PRN PRN Reason: Sleep Last Admin: 03/11/21 21:01 Dose: 6 mg Documented by: Nystatin (Nystatin Topical Powder 30 Gm Bottle) 1 gm TOP Q8H PRN PRN Reason: Rash Pantoprazole Sodium (Pantoprazole 40 Mg Tab.Cr) 40 mg PO ACBREAKFAST [facility] Last Admin: 03/12/21 05:40 Dose: 40 mg Documented by: Trazodone HCl (Trazodone 50 Mg Tab) 50 mg PO BEDTIME [facility] Last Admin: 03/11/21 21:01 Dose: 50 mg Documented by: Zolpidem Tartrate (Zolpidem 5 Mg Tab) 5 mg PO BEDTIME PRN PRN Reason: Sleep Last Admin: 03/08/21 23:46 Dose: 5 mg Documented by: Discontinued Medications COVID-19 Vaccine mRNA LNP-S (PFR) (PF) (Covid-19 Vacc, Mrna(Pfizer)/Pf 30 Mcg/0.3 Ml Vial) 30 mcg IM .ONCE ONE Stop: 02/25/21 16:21 Last Admin: 02/25/21 17:11 Dose: Not Given Documented by: Carvedilol (Carvedilol 6.25 Mg Tab) 6.25 mg PO ONETIME ONE Stop: 02/19/21 12:28 Last Admin: 02/19/21 12:36 Dose: Not Given Documented by: Carvedilol (Carvedilol 3.125 Mg Tab) 3.125 mg PO BIDMEALS [facility] Last Admin: 02/28/21 09:52 Dose: 3.125 mg Documented by: Clopidogrel Bisulfate (Clopidogrel 75 Mg Tab) 225 mg PO ONETIME STA Stop: 02/17/21 11:11 Last Admin: 02/17/21 11:24 Dose: 225 mg Documented by: Dextrose/Water (50% Dextrose In Water 50 Ml Syringe) 50 ml IVPUSH Q15M PRN PRN Reason: Hypoglycemia Dextrose/Water (50% Dextrose In Water 50 Ml Syringe) 50 ml IVPUSH Q15M PRN PRN Reason: Hypoglycemia Dextrose/Water (50% Dextrose In Water 50 Ml Syringe) 50 ml IVPUSH Q15M PRN PRN Reason: Hypoglycemia Dextrose/Water (50% Dextrose In Water 50 Ml Syringe) Confirm Administered Dose 50 ml .ROUTE .STK-MED ONE Stop: 02/20/21 07:41 Last Admin: 02/20/21 08:14 Dose: Not Given Documented by: Dextrose/Water (50% Dextrose In Water 50 Ml Syringe) 50 ml IVPUSH ONETIME ONE Stop: 02/26/21 07:46 Last Admin: 02/26/21 07:45 Dose: 50 ml Documented by: Furosemide (Furosemide 20 Mg/2 Ml Vial) 20 mg IVPUSH ONETIME ONE Stop: 02/16/21 15:51 Last Admin: 02/16/21 15:54 Dose: 20 mg Documented by: Furosemide (Furosemide 40 Mg/4 Ml Vial) 40 mg IVPUSH ONETIME ONE Stop: 02/23/21 16:01 Last Admin: 02/23/21 16:00 Dose: 40 mg Documented by: Furosemide (Furosemide 20 Mg Tab) 20 mg PO DAILY [facility] Last Admin: 03/03/21 10:17 Dose: 20 mg Documented by: Furosemide (Furosemide 20 Mg Tab) 20 mg PO BIDDIURETIC [facility] Last Admin: 03/04/21 08:31 Dose: 20 mg Documented by: Furosemide (Furosemide 20 Mg/2 Ml Vial) 20 mg IVPUSH Q8H [facility] Last Admin: 03/07/21 05:58 Dose: 20 mg Documented by: Furosemide (Furosemide 40 Mg Tab) 40 mg PO DAILY [facility] Glucagon (Glucagon,Human Recombinant 1 Mg Vial) 1 mg IM Q15M PRN PRN Reason: Hypoglycemia Glucagon (Glucagon,Human Recombinant 1 Mg Vial) 1 mg IM Q15M PRN PRN Reason: Hypoglycemia Heparin Sodium (Porcine) (Heparin Sodium 5,000 Units/Ml Vial) 4,700 units IV ONETIME ONE Stop: 02/17/21 08:31 Last Admin: 02/17/21 08:34 Dose: 4,700 units Documented by: Heparin Sodium (Porcine) (Heparin Sodium 5,000 Units/Ml Vial) 1,000 units IVPUSH ONETIME ONE Stop: 02/17/21 22:56 Last Admin: 02/17/21 23:14 Dose: 1,000 units Documented by: Heparin Sodium (Porcine) (Heparin Sodium 5,000 Units/Ml Vial) 2,000 units IVPUSH .BOLUS ONE Stop: 02/18/21 09:18 Last Admin: 02/18/21 09:35 Dose: 2,000 units Documented by: Heparin Sodium (Porcine) (Heparin Sodium 5,000 Units/Ml Vial) 2,000 units IVPUSH ONETIME ONE Stop: 02/18/21 22:43 Last Admin: 02/18/21 22:55 Dose: 2,000 units Documented by: Sodium Chloride (Normal Saline) 1,000 mls @ 999 mls/hr IV .BOLUS ONE Stop: 02/16/21 15:00 Last Admin: 02/16/21 17:42 Dose: 999 mls/hr Documented by: Albumin Human (Buminate 5%) 250 mls @ 250 mls/hr IV ASDIRECTED [facility] Last Admin: 02/16/21 15:01 Dose: 250 mls/hr Documented by: Sodium Bicarbonate 100 meq/ (Dextrose/Water) 1,100 mls @ 100 mls/hr IV ONETIME ONE Stop: 02/17/21 02:02 Last Admin: 02/16/21 15:18 Dose: 100 mls/hr Documented by: Insulin Regular in 0.9 % NACL (Myxredlin In Ns 100 Unit/100 Ml) 100 unit in 100 mls @ 7.82 mls/hr IV TITRATE [facility]IN; Protocol Sodium Bicarbonate 100 meq/ (Dextrose/Water) 1,100 mls @ 999 mls/hr IV ONETIME ONE Stop: 02/16/21 18:27 Last Admin: 02/16/21 22:50 Dose: Not Given Documented by: Sodium Chloride (Normal Saline) 1,000 mls @ 250 mls/hr IV ASDIRECTED [facility] Insulin Regular in 0.9 % NACL (Myxredlin In Ns 100 Unit/100 Ml) 100 unit in 100 mls @ 7.82 mls/hr IV TITRATE ERIN; Protocol Last Titration: 02/17/21 02:36 Dose: 0 units/kg/hr, 0 mls/hr Documented by: Levofloxacin/Dextrose 500 mg/ (Premix) 100 mls @ 100 mls/hr IV Q24H [facility] Last Admin: 02/16/21 20:54 Dose: 100 mls/hr Documented by: Sodium Chloride (Normal Saline) 1,000 mls @ 1,000 mls/hr IV ASDIRECTED [facility] Stop: 02/16/21 19:59 Last Admin: 02/16/21 19:02 Dose: 1,000 mls/hr Documented by: Potassium Chloride/Sodium Chloride (Normal Saline With 40 Meq Kcl) 1,000 mls @ 250 mls/hr IV ASDIRECTED [facility] Last Admin: 02/17/21 01:48 Dose: 250 mls/hr Documented by: Sodium Bicarbonate 100 meq/ (Dextrose/Water) 1,100 mls @ 150 mls/hr IV ONETIME ONE Stop: 02/17/21 10:39 Last Infusion: 02/17/21 07:55 Dose: 50 mls/hr Documented by: Heparin Sodium/Sodium Chloride (Heparin 25,000 Units In 1/2 Ns 500 Ml) 25,000 units in 500 mls @ 18.768 mls/hr IV TITRATE [facility]; Protocol Last Admin: 02/19/21 03:31 Dose: 22 units/kg/hr, 34.408 mls/hr Documented by: Levofloxacin/Dextrose 500 mg/ (Premix) 100 mls @ 100 mls/hr IV Q48H [facility] Last Admin: 02/18/21 17:21 Dose: 100 mls/hr Documented by: Lactated Ringer's (Ringers, Lactated) 1,000 mls @ 125 mls/hr IV ASDIRECTED [facility] Last Admin: 02/19/21 05:45 Dose: 125 mls/hr Documented by: Levofloxacin/Dextrose 750 mg/ (Premix) 150 mls @ 100 mls/hr IV Q24H [facility] Stop: 02/21/21 11:01 Last Admin: 02/21/21 11:15 Dose: 100 mls/hr Documented by: Potassium Chloride 20 meq/ (Premix) 100 mls @ 50 mls/hr IV ONETIME ONE Stop: 02/20/21 09:22 Last Admin: 02/20/21 08:00 Dose: 50 mls/hr Documented by: Calcium Gluconate 1 gm/ Sodium (Chloride) 110 mls @ 110 mls/hr IV ONETIME ONE Stop: 02/20/21 08:29 Last Admin: 02/20/21 08:14 Dose: 110 mls/hr Documented by: Albumin Human 50 gm/ Premix 200 mls @ 100 mls/hr IV NOW ONE Stop: 02/23/21 13:21 Last Admin: 02/23/21 12:12 Dose: 100 mls/hr Documented by: Insulin Glargine (Insulin Glarg,Human.Rec.Analog 100 Unit/Ml) 35 unit SUBCUT ONETIME ONE Stop: 02/17/21 04:13 Last Admin: 02/17/21 04:28 Dose: 35 units Documented by: Insulin Glargine (Insulin Glarg,Human.Rec.Analog 100 Unit/Ml) 20 unit SUBCUT ONETIME ONE Stop: 02/19/21 09:23 Last Admin: 02/19/21 09:57 Dose: 20 units Documented by: Insulin Glargine (Insulin Glarg,Human.Rec.Analog 100 Unit/Ml) 40 unit SUBCUT BEDTIME [facility] Last Admin: 02/19/21 21:47 Dose: 40 units Documented by: Insulin Glargine (Insulin Glarg,Human.Rec.Analog 100 Unit/Ml) 20 unit SUBCUT BEDTIME [facility] Last Admin: 03/05/21 20:55 Dose: 20 units Documented by: Insulin Glargine (Insulin Glarg,Human.Rec.Analog 100 Unit/Ml) 24 unit SUBCUT BEDTIME [facility] Last Admin: 03/06/21 20:47 Dose: 24 units Documented by: Insulin Human Lispro (Insulin Lispro 100 Units/Ml 3 Ml Vial) 5 unit SUBCUT ONETIME ONE Stop: 02/17/21 04:15 Last Admin: 02/17/21 04:29 Dose: 5 units Documented by: Insulin Human Lispro (Insulin Lispro 100 Units/Ml 3 Ml Vial) 0 unit SUBCUT WITHMEALSANDBED [facility]; Protocol Last Admin: 02/18/21 09:04 Dose: Not Given Documented by: Insulin Human Lispro (Insulin Lispro 100 Units/Ml 3 Ml Vial) 14 unit SUBCUT ONETIME ONE Stop: 02/19/21 12:27 Last Admin: 02/19/21 12:36 Dose: Not Given Documented by: Insulin Human Lispro (Insulin Lispro 100 Units/Ml 3 Ml Vial) 12 unit SUBCUT ONETIME ONE Stop: 02/19/21 12:27 Last Admin: 02/19/21 12:41 Dose: 12 units Documented by: Insulin Human Regular (Insulin Regular, Human 100 Units/Ml 3 Ml Vial) 5 unit IV ONETIME ONE Stop: 02/16/21 14:22 Last Admin: 02/16/21 14:59 Dose: 5 unit Documented by: Insulin Human Regular (Insulin Regular, Human 100 Units/Ml 3 Ml Vial) 10 unit IV STAT STA Stop: 02/16/21 17:11 Last Admin: 02/16/21 17:19 Dose: 10 units Documented by: Insulin Human Regular (Insulin Regular, Human 100 Units/Ml 3 Ml Vial) 10 unit IV ONETIME ONE Stop: 02/16/21 18:13 Last Admin: 02/16/21 18:14 Dose: 10 units Documented by: Lisinopril (Lisinopril 5 Mg Tab) 2.5 mg PO DAILY [facility] Metolazone (Metolazone 2.5 Mg Tab) 5 mg PO ONETIME ONE Stop: 02/27/21 06:01 Last Admin: 02/27/21 06:07 Dose: 5 mg Documented by: Nitroglycerin (Nitroglycerin 0.4 Mg Tab.Sl) 0.4 mg SL ONETIME ONE Stop: 02/18/21 15:41 Last Admin: 02/18/21 15:47 Dose: 0.4 mg Documented by: Nystatin (Nystatin Topical Powder 30 Gm Bottle) 0 gm TOP Q8H [facility] Last Admin: 02/19/21 03:43 Dose: 1 applic Documented by: Nystatin (Nystatin Topical Powder 30 Gm Bottle) 0 gm TOP Q8HR [facility] Last Admin: 02/28/21 22:12 Dose: 1 applic Documented by: Potassium Chloride (Potassium Chloride 10 Meq Tab.Er) 40 meq PO ONETIME ONE Stop: 02/17/21 03:20 Last Admin: 02/17/21 07:20 Dose: Not Given Documented by: Potassium Chloride (Potassium Chloride 10 Meq Tab.Er) 40 meq PO ONETIME ONE Stop: 02/17/21 07:52 Last Admin: 02/17/21 08:43 Dose: 40 meq Documented by: Potassium Chloride (Potassium Chloride 10% 20 Meq/15 Ml Soln 15 Ml Ud Cup) 40 meq PO ONETIME ONE Stop: 02/17/21 17:01 Last Admin: 02/17/21 17:41 Dose: 40 meq Documented by: Potassium Chloride (Potassium Chloride 10 Meq Tab.Er) 20 meq PO DAILY [facility] Potassium Chloride (Potassium Chloride 10 Meq Tab.Er) 40 meq PO WITHBREAKFAST [facility] Stop: 03/11/21 08:16 Last Admin: 03/11/21 09:15 Dose: 40 meq Documented by: Potassium Chloride (Potassium Chloride 10 Meq Tab.Er) 20 meq PO BID [facility] Stop: 03/08/21 21:01 Last Admin: 03/08/21 20:53 Dose: 20 meq Documented by: Sodium Bicarbonate (Sodium Bicarbonate 8.4% 50 Meq/50 Ml Syringe) 50 meq IVPUSH ONETIME ONE Stop: 02/16/21 15:04 Last Admin: 02/16/21 15:08 Dose: 50 meq Documented by: Sodium Bicarbonate (Sodium Bicarbonate 8.4% 50 Meq/50 Ml Syringe) 100 meq IVP [facility] ONETIME ONE Stop: 02/16/21 17:24 Last Admin: 02/16/21 17:49 Dose: 100 meq Documented by: Zolpidem Tartrate (Zolpidem 5 Mg Tab) 5 mg PO ONETIME ONE Stop: 02/18/21 22:06 Last Admin: 02/18/21 22:17 Dose: 5 mg Documented by: Zolpidem Tartrate (Zolpidem 5 Mg Tab) 5 mg PO ONETIME ONE Stop: 02/20/21 00:18 Last Admin: 02/20/21 00:38 Dose: 5 mg Documented by: - Exam Quality Assessment: No: Supplemental Oxygen Urinary Catheter Total Time: 2Days 13Hours General: Alert, Oriented Lungs: Clear to Auscultation, Normal Respiratory Effort Cardiovascular: Regular Rate, Regular Rhythm Extremities: No Pedal Edema - Patient Data Lab Results Last 24 hrs: Laboratory Results - last 24 hr 03/11/21 03/11/21 03/12/21 Range/Units 16:25 20:45 07:42 POC Glucose 372 H 182 H 167 H (70-99) mg/dL 03/12/21 Range/Units 11:14 POC Glucose 258 H (70-99) mg/dL Result Diagrams: 03/04/21 06:05 03/10/21 05:45 Sepsis Event Note - Evaluation Sepsis Screening Result: No Definite Risk - Focused Exam Vital Signs: Vital Signs Temp Pulse Pulse Resp BP BP Pulse Ox 03/12/21 12:00 97.1 F 69 18 111/56 L 97 03/12/21 08:52 144/71 H 03/12/21 08:51 68 144/71 H 03/12/21 07:53 97.2 F 68 18 144/71 H 96 03/12/21 04:00 97.6 F 68 15 118/55 L 93 L - Problem List & Annotations (1) Acute coronary syndrome with high troponin SNOMED Code(s): 908602092, 299182285 Code(s): I24.9 - ACUTE ISCHEMIC HEART DISEASE, UNSPECIFIED Status: Acute Current Visit: Yes (2) Congestive heart failure SNOMED Code(s): 18260091 Code(s): I50.9 - HEART FAILURE, UNSPECIFIED Status: Acute Priority: Medium Current Visit: Yes Onset Date: ~03/05/21 Qualifiers: Heart failure type: combined systolic and diastolic Heart failure chronicity: acute on chronic Qualified Code(s): I50.43 - Acute on chronic co mbined systolic (congestive) and diastolic (congestive) heart failure (3) DKA (diabetic ketoacidosis) SNOMED Code(s): 635453366, 855203080 Code(s): E11.10 - TYPE 2 DIABETES MELLITUS WITH KETOACIDOSIS WITHOUT COMA Status: Chronic Current Visit: Yes Qualifiers: Diabetes mellitus type: type 2 Diabetes mellitus complication detail: without coma Qualified Code(s): E11.10 - Type 2 diabetes mellitus with ketoacidosis without coma (4) Metabolic acidosis due to diabetes mellitus SNOMED Code(s): 218138675 Code(s): E11.69 - TYPE 2 DIABETES MELLITUS WITH OTHER SPECIFIED COMPLICATION; E87.2 - ACIDOSIS Status: Acute Current Visit: No - Problem List Review Problem List Initiated/Reviewed/Updated: Yes - My Orders Last 24 Hours: My Active Orders 03/13/21 05:15 BASIC METABOLIC PANEL,BMP [CHEM] AM CBC WITH AUTO DIFF [HEME] AM - Assessment Assessment:: Assessment: Generalized weakness: continue with PT/OT Awaiting SNF placement. difficulty with finances, lack of insurance Uncontrolled type 2 diabetes mellitus, insulin-dependent continue with home meds. Demand Ischemia. Resolved. Pt has a h/o CAD and is on Asa, Plavix continue with coreg, zetia, lisinopril Chronic congestive heart failure- resolved Will need out pt echo after discharge to further characterize Hypokalemia On oral replacement. recheck bmp in am H/o cerebrovascular accident: medical management . antiplatelets, BP control. VTE prophylaxis: SQ Lovenox Discharge planning : to SNF when bed available.
[2021-03-12] MEDS: Insulin Glarg,Human.Rec.Analog 100 Unit/ML SUBCUT SCH (20:26)
[2021-03-12] MEDS: Ezetimibe 10 MG Tab PO SCH (20:27)
[2021-03-12] MEDS: traZODone 50 MG Tab PO SCH (20:27)
[2021-03-13] MEDS: Pantoprazole 40 MG Tab.CR PO SCH (06:29)
[2021-03-13 08:58] LABS: ANION GAP 14.6 mEq/L (7-13); CHLORIDE,CL 106 mmol/L (98-107); SODIUM,NA 141 mmol/L (136-145)
[2021-03-13] MEDS: Aspirin 81 MG Tab.EC PO SCH (09:18)
[2021-03-13] MEDS: Furosemide 40 MG Tab PO SCH (09:18)
[2021-03-13] MEDS: Lisinopril 10 MG Tab PO SCH (09:18)
[2021-03-13] MEDS: Clopidogrel 75 MG Tab PO SCH (09:18)
[2021-03-13] MEDS: Carvedilol 3.125 MG Tab PO SCH ×2 (09:19→17:39)
[2021-03-13] MEDS: Enoxaparin 40 MG/0.4 ML Syringe SUBCUT SCH (09:19)
[2021-03-13] MEDS: Insulin Lispro 100 Units/ML 3 ML Vial SUBCUT SCH ×7 (09:20→21:17)
--- NOTE | 2021-03-13 10:59 | PCM.PN ---
- General Info Date of Service: 03/13/21 Subjective Update: She has no new complaint this morning. She remains afebrile. sleeping good, minimally active Pt is waiting for a SNF bed for discharge. Functional Status: Reports: Pain Controlled, Tolerating Diet. Denies: Ambulating - Review of Systems General: Reports: Weakness Pulmonary: Denies: Shortness of Breath Cardiovascular: Denies: Chest Pain, Edema Neurological: Denies: Confusion - Patient Data Vitals - Most Recent: Last Vital Signs Temp 97.4 F 03/13/21 08:22 Pulse 73 03/13/21 09:19 Resp 20 03/13/21 08:22 BP 150/84 H 03/13/21 09:19 Pulse Ox 95 03/13/21 08:22 Weight - Most Recent: 176 lb 6.4 oz I&O - Last 24 Hours: Intake & Output 03/12/21 03/13/21 03/13/21 22:59 06:59 14:59 Intake Total 150 100 Balance 150 100 Lab Results Last 24 Hours: Laboratory Results - last 24 hr 03/12/21 03/12/21 03/12/21 Range/Units 11:14 17:18 20:15 WBC (5.0-10.0) 10^3/uL RBC (4.2-5.4) 10^6/uL Hgb (12.0-16.0) g/dL Hct (37.0-47.0) % MCV (80-100) fL MCH (27.0-34.0) pg MCHC (33.0-35.0) g/dL Plt Count (150-450) 10^3/uL Neut % (Auto) (42.2-75.2) % Lymph % (Auto) (20.5-50.1) % [place] % (Auto) (2-8) % Eos % (Auto) (1.0-3.0) % Baso % (Auto) (0.0-1.0) % Sodium (136-145) mmol/L Potassium (3.5-5.1) mmol/L Chloride (98-107) mmol/L Carbon Dioxide (21-32) mmol/L Anion Gap (7-13) mEq/L BUN (7-18) mg/dL Creatinine (0.55-1.02) mg/dL Est Cr Clr Drug Dosing mL/min Estimated GFR (MDRD) Glucose (70-99) mg/dL POC Glucose 258 H 324 H 192 H (70-99) mg/dL Calcium (8.5-10.1) mg/dL 03/13/21 03/13/21 03/13/21 Range/Units 07:59 08:36 08:36 WBC 4.9 L (5.0-10.0) 10^3/uL RBC 4.49 (4.2-5.4) 10^6/uL Hgb 10.2 L (12.0-16.0) g/dL Hct 33.1 L (37.0-47.0) % MCV 73.7 L (80-100) fL MCH 22.7 L (27.0-34.0) pg MCHC 30.8 L (33.0-35.0) g/dL Plt Count 193 (150-450) 10^3/uL Neut % (Auto) 60.0 (42.2-75.2) % Lymph % (Auto) 26.0 (20.5-50.1) % [place] % (Auto) 13.8 H (2-8) % Eos % (Auto) 0.2 L (1.0-3.0) % Baso % (Auto) 0.0 (0.0-1.0) % Sodium 141 (136-145) mmol/L Potassium 4.6 (3.5-5.1) mmol/L Chloride 106 (98-107) mmol/L Carbon Dioxide 25 (21-32) mmol/L Anion Gap 14.6 H (7-13) mEq/L BUN 19 H (7-18) mg/dL Creatinine 0.79 (0.55-1.02) mg/dL Est Cr Clr Drug Dosing 64.44 mL/min Estimated GFR (MDRD) > 60 Glucose 208 H (70-99) mg/dL POC Glucose 144 H (70-99) mg/dL Calcium 8.6 (8.5-10.1) mg/dL Med Orders - Current: Current Medications Acetaminophen (Acetaminophen 500 Mg Tab) 500 mg PO Q4H PRN PRN Reason: Pain/Fever Last Admin: 03/09/21 20:36 Dose: 500 mg Documented by: Aspirin (Aspirin 81 Mg Tab.Ec) 81 mg PO DAILY ERIN Last Admin: 03/13/21 09:18 Dose: 81 mg Documented by: Carvedilol (Carvedilol 3.125 Mg Tab) 6.25 mg PO BIDMEALS [facility], [facility] Last Admin: 03/13/21 09:19 Dose: 6.25 mg Documented by: Clopidogrel Bisulfate (Clopidogrel 75 Mg Tab) 75 mg PO DAILY [facility], [facility] Last Admin: 03/13/21 09:18 Dose: 75 mg Documented by: Dextrose/Water (50% Dextrose In Water 50 Ml Syringe) 25 ml IVPUSH Q15M PRN PRN Reason: Hypoglycemia Last Admin: 02/28/21 08:35 Dose: 25 ml Documented by: Dextrose/Water (50% Dextrose In Water 50 Ml Syringe) 50 ml IVPUSH Q15M PRN PRN Reason: Hypoglycemia Ezetimibe (Ezetimibe 10 Mg Tab) 10 mg PO BEDTIME [facility], [facility] Last Admin: 03/12/21 20:27 Dose: 10 mg Documented by: Enoxaparin Sodium (Enoxaparin 40 Mg/0.4 Ml Syringe) 40 mg SUBCUT DAILY [facility], [facility] Last Admin: 03/13/21 09:19 Dose: 40 mg Documented by: Ferrous Sulfate (Ferrous Sulfate 325 Mg Tab) 325 mg PO Q48H [facility], [facility] Last Admin: 03/12/21 08:52 Dose: 325 mg Documented by: Furosemide (Furosemide 40 Mg Tab) 40 mg PO DAILY [facility], [facility] Last Admin: 03/13/21 09:18 Dose: 40 mg Documented by: Glucagon (Glucagon,Human Recombinant 1 Mg Vial) 1 mg IM Q15M PRN PRN Reason: Hypoglycemia Insulin Glargine (Insulin Glarg,Human.Rec.Analog 100 Unit/Ml) 20 unit SUBCUT BEDTIME [facility], [facility] Last Admin: 03/12/21 20:26 Dose: 20 units Documented by: Insulin Human Lispro (Insulin Lispro 100 Units/Ml 3 Ml Vial) 0 unit SUBCUT WITHMEALSANDBED [facility]LY [facility], [facility]; Protocol Last Admin: 03/13/21 09:24 Dose: Not Given Documented by: Insulin Human Lispro (Insulin Lispro 100 Units/Ml 3 Ml Vial) 2 unit SUBCUT TIDMEALS [facility], [facility] Last Admin: 03/13/21 09:20 Dose: 2 units Documented by: Lisinopril (Lisinopril 10 Mg Tab) 10 mg PO DAILY [facility], [facility] Last Admin: 03/13/21 09:18 Dose: 10 mg Documented by: Melatonin (Melatonin 3 Mg Tab) 6 mg PO BEDTIME PRN PRN Reason: Sleep Last Admin: 03/11/21 21:01 Dose: 6 mg Documented by: Nystatin (Nystatin Topical Powder 30 Gm Bottle) 1 gm TOP Q8H PRN PRN Reason: Rash Pantoprazole Sodium (Pantoprazole 40 Mg Tab.Cr) 40 mg PO ACBREAKFAST [facility], [facility] Last Admin: 03/13/21 06:29 Dose: 40 mg Documented by: Trazodone HCl (Trazodone 50 Mg Tab) 50 mg PO BEDTIME [facility], [facility] Last Admin: 03/12/21 20:27 Dose: 50 mg Documented by: Zolpidem Tartrate (Zolpidem 5 Mg Tab) 5 mg PO BEDTIME PRN PRN Reason: Sleep Last Admin: 03/08/21 23:46 Dose: 5 mg Documented by: Discontinued Medications COVID-19 Vaccine mRNA LNP-S (PFR) (PF) (Covid-19 Vacc, Mrna(Pfizer)/Pf 30 Mcg/0.3 Ml Vial) 30 mcg IM .ONCE ONE Stop: 02/25/21 16:21 Last Admin: 02/25/21 17:11 Dose: Not Given Documented by: Carvedilol (Carvedilol 6.25 Mg Tab) 6.25 mg PO ONETIME ONE Stop: 02/19/21 12:28 Last Admin: 02/19/21 12:36 Dose: Not Given Documented by: Carvedilol (Carvedilol 3.125 Mg Tab) 3.125 mg PO BIDMEALS [facility], [facility] Last Admin: 02/28/21 09:52 Dose: 3.125 mg Documented by: Clopidogrel Bisulfate (Clopidogrel 75 Mg Tab) 225 mg PO ONETIME STA Stop: 02/17/21 11:11 Last Admin: 02/17/21 11:24 Dose: 225 mg Documented by: Dextrose/Water (50% Dextrose In Water 50 Ml Syringe) 50 ml IVPUSH Q15M PRN PRN Reason: Hypoglycemia Dextrose/Water (50% Dextrose In Water 50 Ml Syringe) 50 ml IVPUSH Q15M PRN PRN Reason: Hypoglycemia Dextrose/Water (50% Dextrose In Water 50 Ml Syringe) 50 ml IVPUSH Q15M PRN PRN Reason: Hypoglycemia Dextrose/Water (50% Dextrose In Water 50 Ml Syringe) Confirm Administered Dose 50 ml .ROUTE .STK-MED ONE Stop: 02/20/21 07:41 Last Admin: 02/20/21 08:14 Dose: Not Given Documented by: Dextrose/Water (50% Dextrose In Water 50 Ml Syringe) 50 ml IVPUSH ONETIME ONE Stop: 02/26/21 07:46 Last Admin: 02/26/21 07:45 Dose: 50 ml Documented by: Furosemide (Furosemide 20 Mg/2 Ml Vial) 20 mg IVPUSH ONETIME ONE Stop: 02/16/21 15:51 Last Admin: 02/16/21 15:54 Dose: 20 mg Documented by: Furosemide (Furosemide 40 Mg/4 Ml Vial) 40 mg IVPUSH ONETIME ONE Stop: 02/23/21 16:01 Last Admin: 02/23/21 16:00 Dose: 40 mg Documented by: Furosemide (Furosemide 20 Mg Tab) 20 mg PO DAILY [facility], [facility] Last Admin: 03/03/21 10:17 Dose: 20 mg Documented by: Furosemide (Furosemide 20 Mg Tab) 20 mg PO BIDDIURETIC [facility], [facility] Last Admin: 03/04/21 08:31 Dose: 20 mg Documented by: Furosemide (Furosemide 20 Mg/2 Ml Vial) 20 mg IVPUSH Q8H [facility], [facility] Last Admin: 03/07/21 05:58 Dose: 20 mg Documented by: Furosemide (Furosemide 40 Mg Tab) 40 mg PO DAILY [facility], [facility] Glucagon (Glucagon,Human Recombinant 1 Mg Vial) 1 mg IM Q15M PRN PRN Reason: Hypoglycemia Glucagon (Glucagon,Human Recombinant 1 Mg Vial) 1 mg IM Q15M PRN PRN Reason: Hypoglycemia Heparin Sodium (Porcine) (Heparin Sodium 5,000 Units/Ml Vial) 4,700 units IV ONETIME ONE Stop: 02/17/21 08:31 Last Admin: 02/17/21 08:34 Dose: 4,700 units Documented by: Heparin Sodium (Porcine) (Heparin Sodium 5,000 Units/Ml Vial) 1,000 units IVPUSH ONETIME ONE Stop: 02/17/21 22:56 Last Admin: 02/17/21 23:14 Dose: 1,000 units Documented by: Heparin Sodium (Porcine) (Heparin Sodium 5,000 Units/Ml Vial) 2,000 units IVPUSH .BOLUS ONE Stop: 02/18/21 09:18 Last Admin: 02/18/21 09:35 Dose: 2,000 units Documented by: Heparin Sodium (Porcine) (Heparin Sodium 5,000 Units/Ml Vial) 2,000 units IVPUSH ONETIME ONE Stop: 02/18/21 22:43 Last Admin: 02/18/21 22:55 Dose: 2,000 units Documented by: Sodium Chloride (Normal Saline) 1,000 mls @ 999 mls/hr IV .BOLUS ONE Stop: 02/16/21 15:00 Last Admin: 02/16/21 17:42 Dose: 999 mls/hr Documented by: Albumin Human (Buminate 5%) 250 mls @ 250 mls/hr IV ASDIRECTED ERIN Last Admin: 02/16/21 15:01 Dose: 250 mls/hr Documented by: Sodium Bicarbonate 100 meq/ (Dextrose/Water) 1,100 mls @ 100 mls/hr IV ONETIME ONE Stop: 02/17/21 02:02 Last Admin: 02/16/21 15:18 Dose: 100 mls/hr Documented by: Insulin Regular in 0.9 % NACL (Myxredlin In Ns 100 Unit/100 Ml) 100 unit in 100 mls @ 7.82 mls/hr IV TITRATE ERIN; Protocol Sodium Bicarbonate 100 meq/ (Dextrose/Water) 1,100 mls @ 999 mls/hr IV ONETIME ONE Stop: 02/16/21 18:27 Last Admin: 02/16/21 22:50 Dose: Not Given Documented by: Sodium Chloride (Normal Saline) 1,000 mls @ 250 mls/hr IV ASDIRECTED ERIN Insulin Regular in 0.9 % NACL (Myxredlin In Ns 100 Unit/100 Ml) 100 unit in 100 mls @ 7.82 mls/hr IV TITRATE ERIN; Protocol Last Titration: 02/17/21 02:36 Dose: 0 units/kg/hr, 0 mls/hr Documented by: Levofloxacin/Dextrose 500 mg/ (Premix) 100 mls @ 100 mls/hr IV Q24H ERIN Last Admin: 02/16/21 20:54 Dose: 100 mls/hr Documented by: Sodium Chloride (Normal Saline) 1,000 mls @ 1,000 mls/hr IV ASDIRECTED ERIN Stop: 02/16/21 19:59 Last Admin: 02/16/21 19:02 Dose: 1,000 mls/hr Documented by: Potassium Chloride/Sodium Chloride (Normal Saline With 40 Meq Kcl) 1,000 mls @ 250 mls/hr IV ASDIRECTED [facility], [facility] Last Admin: 02/17/21 01:48 Dose: 250 mls/hr Documented by: Sodium Bicarbonate 100 meq/ (Dextrose/Water) 1,100 mls @ 150 mls/hr IV ONETIME ONE Stop: 02/17/21 10:39 Last Infusion: 02/17/21 07:55 Dose: 50 mls/hr Documented by: Heparin Sodium/Sodium Chloride (Heparin 25,000 Units In 1/2 Ns 500 Ml) 25,000 units in 500 mls @ 18.768 mls/hr IV TITRATE ERIN; Protocol Last Admin: 02/19/21 03:31 Dose: 22 units/kg/hr, 34.408 mls/hr Documented by: Levofloxacin/Dextrose 500 mg/ (Premix) 100 mls @ 100 mls/hr IV Q48H [facility], [facility] Last Admin: 02/18/21 17:21 Dose: 100 mls/hr Documented by: Lactated Ringer's (Ringers, Lactated) 1,000 mls @ 125 mls/hr IV ASDIRECTED [facility], [facility]–1983 Last Admin: 02/19/21 05:45 Dose: 125 mls/hr Documented by: Levofloxacin/Dextrose 750 mg/ (Premix) 150 mls @ 100 mls/hr IV Q24H [facility], [facility]1983 Stop: 02/21/21 11:01 Last Admin: 02/21/21 11:15 Dose: 100 mls/hr Documented by: Potassium Chloride 20 meq/ (Premix) 100 mls @ 50 mls/hr IV ONETIME ONE Stop: 02/20/21 09:22 Last Admin: 02/20/21 08:00 Dose: 50 mls/hr Documented by: Calcium Gluconate 1 gm/ Sodium (Chloride) 110 mls @ 110 mls/hr IV ONETIME ONE Stop: 02/20/21 08:29 Last Admin: 02/20/21 08:14 Dose: 110 mls/hr Documented by: Albumin Human 50 gm/ Premix 200 mls @ 100 mls/hr IV NOW ONE Stop: 02/23/21 13:21 Last Admin: 02/23/21 12:12 Dose: 100 mls/hr Documented by: Insulin Glargine (Insulin Glarg,Human.Rec.Analog 100 Unit/Ml) 35 unit SUBCUT ONETIME ONE Stop: 02/17/21 04:13 Last Admin: 02/17/21 04:28 Dose: 35 units Documented by: Insulin Glargine (Insulin Glarg,Human.Rec.Analog 100 Unit/Ml) 20 unit SUBCUT ONETIME ONE Stop: 02/19/21 09:23 Last Admin: 02/19/21 09:57 Dose: 20 units Documented by: Insulin Glargine (Insulin Glarg,Human.Rec.Analog 100 Unit/Ml) 40 unit SUBCUT BEDTIME [facility], [facility]1983 Last Admin: 02/19/21 21:47 Dose: 40 units Documented by: Insulin Glargine (Insulin Glarg,Human.Rec.Analog 100 Unit/Ml) 20 unit SUBCUT BEDTIME [facility], [facility]1983 Last Admin: 03/05/21 20:55 Dose: 20 units Documented by: Insulin Glargine (Insulin Glarg,Human.Rec.Analog 100 Unit/Ml) 24 unit SUBCUT BEDTIME [facility], [facility]1983 Last Admin: 03/06/21 20:47 Dose: 24 units Documented by: Insulin Human Lispro (Insulin Lispro 100 Units/Ml 3 Ml Vial) 5 unit SUBCUT ONETIME ONE Stop: 02/17/21 04:15 Last Admin: 02/17/21 04:29 Dose: 5 units Documented by: Insulin Human Lispro (Insulin Lispro 100 Units/Ml 3 Ml Vial) 0 unit SUBCUT WITHMEALSANDBED [facility], [facility]; Protocol Last Admin: 02/18/21 09:04 Dose: Not Given Documented by: Insulin Human Lispro (Insulin Lispro 100 Units/Ml 3 Ml Vial) 14 unit SUBCUT ONETIME ONE Stop: 02/19/21 12:27 Last Admin: 02/19/21 12:36 Dose: Not Given Documented by: Insulin Human Lispro (Insulin Lispro 100 Units/Ml 3 Ml Vial) 12 unit SUBCUT ONETIME ONE Stop: 02/19/21 12:27 Last Admin: 02/19/21 12:41 Dose: 12 units Documented by: Insulin Human Regular (Insulin Regular, Human 100 Units/Ml 3 Ml Vial) 5 unit IV ONETIME ONE Stop: 02/16/21 14:22 Last Admin: 02/16/21 14:59 Dose: 5 unit Documented by: Insulin Human Regular (Insulin Regular, Human 100 Units/Ml 3 Ml Vial) 10 unit IV STAT STA Stop: 02/16/21 17:11 Last Admin: 02/16/21 17:19 Dose: 10 units Documented by: Insulin Human Regular (Insulin Regular, Human 100 Units/Ml 3 Ml Vial) 10 unit IV ONETIME ONE Stop: 02/16/21 18:13 Last Admin: 02/16/21 18:14 Dose: 10 units Documented by: Lisinopril (Lisinopril 5 Mg Tab) 2.5 mg PO DAILY [facility], [facility] Metolazone (Metolazone 2.5 Mg Tab) 5 mg PO ONETIME ONE Stop: 02/27/21 06:01 Last Admin: 02/27/21 06:07 Dose: 5 mg Documented by: Nitroglycerin (Nitroglycerin 0.4 Mg Tab.Sl) 0.4 mg SL ONETIME ONE Stop: 02/18/21 15:41 Last Admin: 02/18/21 15:47 Dose: 0.4 mg Documented by: Nystatin (Nystatin Topical Powder 30 Gm Bottle) 0 gm TOP Q8H [facility] Last Admin: 02/19/21 03:43 Dose: 1 applic Documented by: Nystatin (Nystatin Topical Powder 30 Gm Bottle) 0 gm TOP Q8HR [facility] Last Admin: 02/28/21 22:12 Dose: 1 applic Documented by: Potassium Chloride (Potassium Chloride 10 Meq Tab.Er) 40 meq PO ONETIME ONE Stop: 02/17/21 03:20 Last Admin: 02/17/21 07:20 Dose: Not Given Documented by: Potassium Chloride (Potassium Chloride 10 Meq Tab.Er) 40 meq PO ONETIME ONE Stop: 02/17/21 07:52 Last Admin: 02/17/21 08:43 Dose: 40 meq Documented by: Potassium Chloride (Potassium Chloride 10% 20 Meq/15 Ml Soln 15 Ml Ud Cup) 40 meq PO ONETIME ONE Stop: 02/17/21 17:01 Last Admin: 02/17/21 17:41 Dose: 40 meq Documented by: Potassium Chloride (Potassium Chloride 10 Meq Tab.Er) 20 meq PO DAILY [facility] Potassium Chloride (Potassium Chloride 10 Meq Tab.Er) 40 meq PO WITHBREAKFAST [facility], [facility]1983 Stop: 03/11/21 08:16 Last Admin: 03/11/21 09:15 Dose: 40 meq Documented by: Potassium Chloride (Potassium Chloride 10 Meq Tab.Er) 20 meq PO BID [facility]1983 Stop: 03/08/21 21:01 Last Admin: 03/08/21 20:53 Dose: 20 meq Documented by: Sodium Bicarbonate (Sodium Bicarbonate 8.4% 50 Meq/50 Ml Syringe) 50 meq IVPUSH ONETIME ONE Stop: 02/16/21 15:04 Last Admin: 02/16/21 15:08 Dose: 50 meq Documented by: Sodium Bicarbonate (Sodium Bicarbonate 8.4% 50 Meq/50 Ml Syringe) 100 meq IVPUSH ONETIME ONE Stop: 02/16/21 17:24 Last Admin: 02/16/21 17:49 Dose: 100 meq Documented by: Zolpidem Tartrate (Zolpidem 5 Mg Tab) 5 mg PO ONETIME ONE Stop: 02/18/21 22:06 Last Admin: 02/18/21 22:17 Dose: 5 mg Documented by: Zolpidem Tartrate (Zolpidem 5 Mg Tab) 5 mg PO ONETIME ONE Stop: 02/20/21 00:18 Last Admin: 02/20/21 00:38 Dose: 5 mg Documented by: - Exam Urinary Catheter Total Time: 2Days 13Hours General: Alert, Oriented Neck: Supple Lungs: Clear to Auscultation, Normal Respiratory Effort Cardiovascular: Regular Rate, Regular Rhythm Extremities: No: Pedal Edema - Patient Data Lab Results Last 24 hrs: Laboratory Results - last 24 hr 03/12/21 03/12/21 03/12/21 Range/Units 11:14 17:18 20:15 WBC (5.0-10.0) 10^3/uL RBC (4.2-5.4) 10^6/uL Hgb (12.0-16.0) g/dL Hct (37.0-47.0) % MCV (80-100) fL MCH (27.0-34.0) pg MCHC (33.0-35.0) g/dL Plt Count (150-450) 10^3/uL Neut % (Auto) (42.2-75.2) % Lymph % (Auto) (20.5-50.1) % [place] % (Auto) (2-8) % Eos % (Auto) (1.0-3.0) % Baso % (Auto) (0.0-1.0) % Sodium (136-145) mmol/L Potassium (3.5-5.1) mmol/L Chloride (98-107) mmol/L Carbon Dioxide (21-32) mmol/L Anion Gap (7-13) mEq/L BUN (7-18) mg/dL Creatinine (0.55-1.02) mg/dL Est Cr Clr Drug Dosing mL/min Estimated GFR (MDRD) Glucose (70-99) mg/dL POC Glucose 258 H 324 H 192 H (70-99) mg/dL Calcium (8.5-10.1) mg/dL 03/13/21 03/13/21 03/13/21 Range/Units 07:59 08:36 08:36 WBC 4.9 L (5.0-10.0) 10^3/uL RBC 4.49 (4.2-5.4) 10^6/uL Hgb 10.2 L (12.0-16.0) g/dL Hct 33.1 L (37.0-47.0) % MCV 73.7 L (80-100) fL MCH 22.7 L (27.0-34.0) pg MCHC 30.8 L (33.0-35.0) g/dL Plt Count 193 (150-450) 10^3/uL Neut % (Auto) 60.0 (42.2-75.2) % Lymph % (Auto) 26.0 (20.5-50.1) % [place] % (Auto) 13.8 H (2-8) % Eos % (Auto) 0.2 L (1.0-3.0) % Baso % (Auto) 0.0 (0.0-1.0) % Sodium 141 (136-145) mmol/L Potassium 4.6 (3.5-5.1) mmol/L Chloride 106 (98-107) mmol/L Carbon Dioxide 25 (21-32) mmol/L Anion Gap 14.6 H (7-13) mEq/L BUN 19 H (7-18) mg/dL Creatinine 0.79 (0.55-1.02) mg/dL Est Cr Clr Drug Dosing 64.44 mL/min Estimated GFR (MDRD) > 60 Glucose 208 H (70-99) mg/dL POC Glucose 144 H (70-99) mg/dL Calcium 8.6 (8.5-10.1) mg/dL Result Diagrams: 03/13/21 08:36 03/13/21 08:36 Sepsis Event Note - Evaluation Sepsis Screening Result: No Definite Risk - Focused Exam Vital Signs: Vital Signs Temp Pulse Pulse Resp BP BP Pulse Ox 03/13/21 09:19 73 150/84 H 03/13/21 09:18 150/84 H 03/13/21 08:22 97.4 F 73 20 150/84 H 95 - Problem List & Annotations (1) Acute coronary syndrome with high troponin SNOMED Code(s): 308679730, 851864785 Code(s): I24.9 - ACUTE ISCHEMIC HEART DISEASE, UNSPECIFIED Status: Acute Current Visit: Yes (2) Congestive heart failure SNOMED Code(s): 48011878 Code(s): I50.9 - HEART FAILURE, UNSPECIFIED Status: Acute Priority: Medium Current Visit: Yes Onset Date: ~03/05/21 Qualifiers: Heart failure type: combined systolic and diastolic Heart failure chronicity: acute on chronic Qualified Code(s): I50.43 - Acute on chronic combined systolic (congestive) and diastolic (congestive) heart failure (3) DKA (diabetic ketoacidosis) SNOMED Code(s): 953614298, 943957711 Code(s): E11.10 - TYPE 2 DIABETES MELLITUS WITH KETOACIDOSIS WITHOUT COMA Status: Chronic Current Visit: Yes Qualifiers: Diabetes mellitus type: type 2 Diabetes mellitus complication detail: without coma Qualified Code(s): E11.10 - Type 2 diabetes mellitus with ketoacidosis without coma (4) Metabolic acidosis due to diabetes mellitus SNOMED Code(s): 470302737 Code(s): E11.69 - TYPE 2 DIABETES MELLITUS WITH OTHER SPECIFIED COMPLICATION; E87.2 - ACIDOSIS Status: Acute Current Visit: No - Problem List Review Problem List Initiated/Reviewed/Updated: Yes - Assessment Assessment:: Assessment: Generalized weakness: continue with PT/OT Awaiting SNF placement. difficulty finding accepting facility due to finances, lack of insurance type 2 diabetes mellitus, insulin-dependent continue with lantus, humolog Demand Ischemia. Resolved. Pt has a h/o CAD and is on Asa, Plavix continue with coreg, zetia, lisinopril Chronic congestive heart failure- resolved cont lisinopril, coreg, lasix Will need out pt echo after discharge to further characterize Hypokalemia On oral replacement. recheck bmp periodically H/o cerebrovascular accident: treat with asa BP control. VTE prophylaxis: SQ Lovenox Discharge planning : to SNF when bed available.
[2021-03-13] MEDS: Ezetimibe 10 MG Tab PO SCH (21:17)
[2021-03-13] MEDS: Zolpidem 5 MG Tab PO PRN (21:17)
[2021-03-13] MEDS: traZODone 50 MG Tab PO SCH (21:17)
[2021-03-13] MEDS: Insulin Glarg,Human.Rec.Analog 100 Unit/ML SUBCUT SCH (21:19)
[2021-03-14] MEDS: Pantoprazole 40 MG Tab.CR PO SCH (06:29)
--- NOTE | 2021-03-14 07:53 | PCM.PN ---
- General Info Date of Service: 03/14/21 Admission Dx/Problem (Free Text): She has no new complaint this morning. She remains afebrile. she slept well Functional Status: Reports: Pain Controlled, Tolerating Diet. Denies: Ambulating - Review of Systems General: Reports: Weakness Pulmonary: Denies: Shortness of Breath Cardiovascular: Reports: Chest Pain. Denies: Edema Genitourinary: Denies: Dysuria Neurological: Reports: Confusion (mild, somewhat limited insight into condition ) - Patient Data Vitals - Most Recent: Last Vital Signs Temp 98 F 03/14/21 04:00 Pulse 74 03/14/21 04:00 Resp 18 03/14/21 04:00 BP 139/85 03/14/21 04:00 Pulse Ox 96 03/14/21 04:00 Weight - Most Recent: 176 lb 6.4 oz I&O - Last 24 Hours: Intake & Output 03/13/21 03/14/21 03/14/21 22:59 06:59 14:59 Intake Total 360 100 Balance 360 100 Lab Results Last 24 Hours: Laboratory Results - last 24 hr 03/13/21 03/13/21 03/13/21 Range/Units 07:59 08:36 08:36 WBC 4.9 L (5.0-10.0) 10^3/uL RBC 4.49 (4.2-5.4) 10^6/uL Hgb 10.2 L (12.0-16.0) g/dL Hct 33.1 L (37.0-47.0) % MCV 73.7 L (80-100) fL MCH 22.7 L (27.0-34.0) pg MCHC 30.8 L (33.0-35.0) g/dL Plt Count 193 (150-450) 10^3/uL Neut % (Auto) 60.0 (42.2-75.2) % Lymph % (Auto) 26.0 (20.5-50.1) % Hays % (Auto) 13.8 H (2-8) % Eos % (Auto) 0.2 L (1.0-3.0) % Baso % (Auto) 0.0 (0.0-1.0) % Sodium 141 (136-145) mmol/L Potassium 4.6 (3.5-5.1) mmol/L Chloride 106 (98-107) mmol/L Carbon Dioxide 25 (21-32) mmol/L Anion Gap 14.6 H (7-13) mEq/L BUN 19 H (7-18) mg/dL Creatinine 0.79 (0.55-1.02) mg/dL Est Cr Clr Drug Dosing 64.44 mL/min Estimated GFR (MDRD) > 60 Glucose 208 H (70-99) mg/dL POC Glucose 144 H (70-99) mg/dL Calcium 8.6 (8.5-10.1) mg/dL 03/13/21 03/13/21 03/13/21 Range/Units 11:30 16:23 20:20 WBC (5.0-10.0) 10^3/uL RBC (4.2-5.4) 10^6/uL Hgb (12.0-16.0) g/dL Hct (37.0-47.0) % MCV (80-100) fL MCH (27.0-34.0) pg MCHC (33.0-35.0) g/dL Plt Count (150-450) 10^3/uL Neut % (Auto) (42.2-75.2) % Lymph % (Auto) (20.5-50.1) % Hays % (Auto) (2-8) % Eos % (Auto) (1.0-3.0) % Baso % (Auto) (0.0-1.0) % Sodium (136-145) mmol/L Potassium (3.5-5.1) mmol/L Chloride (98-107) mmol/L Carbon Dioxide (21-32) mmol/L Anion Gap (7-13) mEq/L BUN (7-18) mg/dL Creatinine (0.55-1.02) mg/dL Est Cr Clr Drug Dosing mL/min Estimated GFR (MDRD) Glucose (70-99) mg/dL POC Glucose 217 H 261 H 225 H (70-99) mg/dL Calcium (8.5-10.1) mg/dL Med Orders - Current: Current Medications Acetaminophen (Acetaminophen 500 Mg Tab) 500 mg PO Q4H PRN PRN Reason: Pain/Fever Last Admin: 03/09/21 20:36 Dose: 500 mg Documented by: Aspirin (Aspirin 81 Mg Tab.Ec) 81 mg PO DAILY [facility] Last Admin: 03/13/21 09:18 Dose: 81 mg Documented by: Carvedilol (Carvedilol 3.125 Mg Tab) 6.25 mg PO BIDMEALS [facility] Last Admin: 03/13/21 17:39 Dose: 6.25 mg Documented by: Clopidogrel Bisulfate (Clopidogrel 75 Mg Tab) 75 mg PO DAILY [facility] Last Admin: 03/13/21 09:18 Dose: 75 mg Documented by: Dextrose/Water (50% Dextrose In Water 50 Ml Syringe) 25 ml IVPUSH Q15M PRN PRN Reason: Hypoglycemia Last Admin: 02/28/21 08:35 Dose: 25 ml Documented by: Dextrose/Water (50% Dextrose In Water 50 Ml Syringe) 50 ml IVPUSH Q15M PRN PRN Reason: Hypoglycemia Ezetimibe (Ezetimibe 10 Mg Tab) 10 mg PO BEDTIME [facility] Last Admin: 03/13/21 21:17 Dose: 10 mg Documented by: Enoxaparin Sodium (Enoxaparin 40 Mg/0.4 Ml Syringe) 40 mg SUBCUT DAILY [facility] Last Admin: 03/13/21 09:19 Dose: 40 mg Documented by: Ferrous Sulfate (Ferrous Sulfate 325 Mg Tab) 325 mg PO Q48H [facility] Last Admin: 03/12/21 08:52 Dose: 325 mg Documented by: Furosemide (Furosemide 40 Mg Tab) 40 mg PO DAILY [facility] Last Admin: 03/13/21 09:18 Dose: 40 mg Documented by: Glucagon (Glucagon,Human Recombinant 1 Mg Vial) 1 mg IM Q15M PRN PRN Reason: Hypoglycemia Insulin Glargine (Insulin Glarg,Human.Rec.Analog 100 Unit/Ml) 20 unit SUBCUT BEDTIME [facility] Last Admin: 03/13/21 21:19 Dose: 20 units Documented by: Insulin Human Lispro (Insulin Lispro 100 Units/Ml 3 Ml Vial) 0 unit SUBCUT WITHMEALSANDBED [facility]; Protocol Last Admin: 03/13/21 21:17 Dose: 4 units Documented by: Insulin Human Lispro (Insulin Lispro 100 Units/Ml 3 Ml Vial) 2 unit SUBCUT TIDMEALS [facility] Last Admin: 03/13/21 17:37 Dose: 2 units Documented by: Lisinopril (Lisinopril 10 Mg Tab) 10 mg PO DAILY [facility] Last Admin: 03/13/21 09:18 Dose: 10 mg Documented by: Melatonin (Melatonin 3 Mg Tab) 6 mg PO BEDTIME PRN PRN Reason: Sleep Last Admin: 03/11/21 21:01 Dose: 6 mg Documented by: Nystatin (Nystatin Topical Powder 30 Gm Bottle) 1 gm TOP Q8H PRN PRN Reason: Rash Pantoprazole Sodium (Pantoprazole 40 Mg Tab.Cr) 40 mg PO ACBREAKFAST [facility] Last Admin: 03/14/21 06:29 Dose: 40 mg Documented by: Trazodone HCl (Trazodone 50 Mg Tab) 50 mg PO BEDTIME [facility] Last Admin: 03/13/21 21:17 Dose: 50 mg Documented by: Zolpidem Tartrate (Zolpidem 5 Mg Tab) 5 mg PO BEDTIME PRN PRN Reason: Sleep Last Admin: 03/13/21 21:17 Dose: 5 mg Documented by: Discontinued Medications COVID-19 Vaccine mRNA LNP-S (PFR) () (Covid-19 Vacc, Mrna(Pfizer)/Pf 30 Mc g/0.3 Ml Vial) 30 mcg IM .ONCE ONE Stop: 02/25/21 16:21 Last Admin: 02/25/21 17:11 Dose: Not Given Documented by: Carvedilol (Carvedilol 6.25 Mg Tab) 6.25 mg PO ONETIME ONE Stop: 02/19/21 12:28 Last Admin: 02/19/21 12:36 Dose: Not Given Documented by: Carvedilol (Carvedilol 3.125 Mg Tab) 3.125 mg PO BIDMEALS [facility] Last Admin: 02/28/21 09:52 Dose: 3.125 mg Documented by: Clopidogrel Bisulfate (Clopidogrel 75 Mg Tab) 225 mg PO ONETIME STA Stop: 02/17/21 11:11 Last Admin: 02/17/21 11:24 Dose: 225 mg Documented by: Dextrose/Water (50% Dextrose In Water 50 Ml Syringe) 50 ml IVPUSH Q15M PRN PRN Reason: Hypoglycemia Dextrose/Water (50% Dextrose In Water 50 Ml Syringe) 50 ml IVPUSH Q15M PRN PRN Reason: Hypoglycemia Dextrose/Water (50% Dextrose In Water 50 Ml Syringe) 50 ml IVPUSH Q15M PRN PRN Reason: Hypoglycemia Dextrose/Water (50% Dextrose In Water 50 Ml Syringe) Confirm Administered Dose 50 ml .ROUTE .STK-MED ONE Stop: 02/20/21 07:41 Last Admin: 02/20/21 08:14 Dose: Not Given Documented by: Dextrose/Water (50% Dextrose In Water 50 Ml Syringe) 50 ml IVPUSH ONETIME ONE Stop: 02/26/21 07:46 Last Admin: 02/26/21 07:45 Dose: 50 ml Documented by: Furosemide (Furosemide 20 Mg/2 Ml Vial) 20 mg IVPUSH ONETIME ONE Stop: 02/16/21 15:51 Last Admin: 02/16/21 15:54 Dose: 20 mg Documented by: Furosemide (Furosemide 40 Mg/4 Ml Vial) 40 mg IVPUSH ONETIME ONE Stop: 02/23/21 16:01 Last Admin: 02/23/21 16:00 Dose: 40 mg Documented by: Furosemide (Furosemide 20 Mg Tab) 20 mg PO DAILY [facility] Last Admin: 03/03/21 10:17 Dose: 20 mg Documented by: Furosemide (Furosemide 20 Mg Tab) 20 mg PO BIDDIURETIC [facility] Last Admin: 03/04/21 08:31 Dose: 20 mg Documented by: Furosemide (Furosemide 20 Mg/2 Ml Vial) 20 mg IVPUSH Q8H [facility] Last Admin: 03/07/21 05:58 Dose: 20 mg Documented by: Furosemide (Furosemide 40 Mg Tab) 40 mg PO DAILY [facility] Glucagon (Glucagon,Human Recombinant 1 Mg Vial) 1 mg IM Q15M PRN PRN Reason: Hypoglycemia Glucagon (Glucagon,Human Recombinant 1 Mg Vial) 1 mg IM Q15M PRN PRN Reason: Hypoglycemia Heparin Sodium (Porcine) (Heparin Sodium 5,000 Units/Ml Vial) 4,700 units IV ONETIME ONE Stop: 02/17/21 08:31 Last Admin: 02/17/21 08:34 Dose: 4,700 units Documented by: Heparin Sodium (Porcine) (Heparin Sodium 5,000 Units/Ml Vial) 1,000 units IVPUSH ONETIME ONE Stop: 02/17/21 22:56 Last Admin: 02/17/21 23:14 Dose: 1,000 units Documented by: Heparin Sodium (Porcine) (Heparin Sodium 5,000 Units/Ml Vial) 2,000 units IVPUSH .BOLUS ONE Stop: 02/18/21 09:18 Last Admin: 02/18/21 09:35 Dose: 2,000 units Documented by: Heparin Sodium (Porcine) (Heparin Sodium 5,000 Units/Ml Vial) 2,000 units IVPUSH ONETIME ONE Stop: 02/18/21 22:43 Last Admin: 02/18/21 22:55 Dose: 2,000 units Documented by: Sodium Chloride (Normal Saline) 1,000 mls @ 999 mls/hr IV .BOLUS ONE Stop: 02/16/21 15:00 Last Admin: 02/16/21 17:42 Dose: 999 mls/hr Documented by: Albumin Human (Buminate 5%) 250 mls @ 250 mls/hr IV ASDIRECTED [facility] Last Admin: 02/16/21 15:01 Dose: 250 mls/hr Documented by: Sodium Bicarbonate 100 meq/ (Dextrose/Water) 1,100 mls @ 100 mls/hr IV ONETIME ONE Stop: 02/17/21 02:02 Last Admin: 02/16/21 15:18 Dose: 100 mls/hr Documented by: Insulin Regular in 0.9 % NACL (Myxredlin In Ns 100 Unit/100 Ml) 100 unit in 100 mls @ 7.82 mls/hr IV TITRATE [facility]; Protocol Sodium Bicarbonate 100 meq/ (Dextrose/Water) 1,100 mls @ 999 mls/hr IV ONETIME ONE Stop: 02/16/21 18:27 Last Admin: 02/16/21 22:50 Dose: Not Given Documented by: Sodium Chloride (Normal Saline) 1,000 mls @ 250 mls/hr IV ASDIRECTED ERIN Insulin Regular in 0.9 % NACL (Myxredlin In Ns 100 Unit/100 Ml) 100 unit in 100 mls @ 7.82 mls/hr IV TITRATE [facility]; Protocol Last Titration: 02/17/21 02:36 Dose: 0 units/kg/hr, 0 mls/hr Documented by: Levofloxacin/Dextrose 500 mg/ (Premix) 100 mls @ 100 mls/hr IV Q24H [facility] Last Admin: 02/16/21 20:54 Dose: 100 mls/hr Documented by: Sodium Chloride (Normal Saline) 1,000 mls @ 1,000 mls/hr IV ASDIRECTED ERIN Stop: 02/16/21 19:59 Last Admin: 02/16/21 19:02 Dose: 1,000 mls/hr Documented by: Potassium Chloride/Sodium Chloride (Normal Saline With 40 Meq Kcl) 1,000 mls @ 250 mls/hr IV ASDIRECTED [facility] Last Admin: 02/17/21 01:48 Dose: 250 mls/hr Documented by: Sodium Bicarbonate 100 meq/ (Dextrose/Water) 1,100 mls @ 150 mls/hr IV ONETIME ONE Stop: 02/17/21 10:39 Last Infusion: 02/17/21 07:55 Dose: 50 mls/hr Documented by: Heparin Sodium/Sodium Chloride (Heparin 25,000 Units In 1/2 Ns 500 Ml) 25,000 units in 500 mls @ 18.768 mls/hr IV TITRATE [facility]; Protocol Last Admin: 02/19/21 03:31 Dose: 22 units/kg/hr, 34.408 mls/hr Documented by: Levofloxacin/Dextrose 500 mg/ (Premix) 100 mls @ 100 mls/hr IV Q48H [facility] Last Admin: 02/18/21 17:21 Dose: 100 mls/hr Documented by: Lactated Ringer's (Ringers, Lactated) 1,000 mls @ 125 mls/hr IV ASDIRECTED [facility] Last Admin: 02/19/21 05:45 Dose: 125 mls/hr Documented by: Levofloxacin/Dextrose 750 mg/ (Premix) 150 mls @ 100 mls/hr IV Q24H [facility] Stop: 02/21/21 11:01 Last Admin: 02/21/21 11:15 Dose: 100 mls/hr Documented by: Potassium Chloride 20 meq/ (Premix) 100 mls @ 50 mls/hr IV ONETIME ONE Stop: 02/20/21 09:22 Last Admin: 02/20/21 08:00 Dose: 50 mls/hr Documented by: Calcium Gluconate 1 gm/ Sodium (Chloride) 110 mls @ 110 mls/hr IV ONETIME ONE Stop: 02/20/21 08:29 Last Admin: 02/20/21 08:14 Dose: 110 mls/hr Documented by: Albumin Human 50 gm/ Premix 200 mls @ 100 mls/hr IV NOW ONE Stop: 02/23/21 13:21 Last Admin: 02/23/21 12:12 Dose: 100 mls/hr Documented by: Insulin Glargine (Insulin Glarg,Human.Rec.Analog 100 Unit/Ml) 35 unit SUBCUT ONETIME ONE Stop: 02/17/21 04:13 Last Admin: 02/17/21 04:28 Dose: 35 units Documented by: Insulin Glargine (Insulin Glarg,Human.Rec.Analog 100 Unit/Ml) 20 unit SUBCUT ONETIME ONE Stop: 02/19/21 09:23 Last Admin: 02/19/21 09:57 Dose: 20 units Documented by: Insulin Glargine (Insulin Glarg,Human.Rec.Analog 100 Unit/Ml) 40 unit SUBCUT BEDTIME [facility] Last Admin: 02/19/21 21:47 Dose: 40 units Documented by: Insulin Glargine (Insulin Glarg,Human.Rec.Analog 100 Unit/Ml) 20 unit SUBCUT BEDTIME [facility] Last Admin: 03/05/21 20:55 Dose: 20 units Documented by: Insulin Glargine (Insulin Glarg,Human.Rec.Analog 100 Unit/Ml) 24 unit SUBCUT BEDTIME [facility] Last Admin: 03/06/21 20:47 Dose: 24 units Documented by: Insulin Human Lispro (Insulin Lispro 100 Units/Ml 3 Ml Vial) 5 unit SUBCUT ONETIME ONE Stop: 02/17/21 04:15 Last Admin: 02/17/21 04:29 Dose: 5 units Documented by: Insulin Human Lispro (Insulin Lispro 100 Units/Ml 3 Ml Vial) 0 unit SUBCUT WITHMEALSANDBED [facility]; Protocol Last Admin: 02/18/21 09:04 Dose: Not Given Documented by: Insulin Human Lispro (Insulin Lispro 100 Units/Ml 3 Ml Vial) 14 unit SUBCUT ONETIME ONE Stop: 02/19/21 12:27 Last Admin: 02/19/21 12:36 Dose: Not Given Documented by: Insulin Human Lispro (Insulin Lispro 100 Units/Ml 3 Ml Vial) 12 unit SUBCUT ONETIME ONE Stop: 02/19/21 12:27 Last Admin: 02/19/21 12:41 Dose: 12 units Documented by: Insulin Human Regular (Insulin Regular, Human 100 Units/Ml 3 Ml Vial) 5 unit IV ONETIME ONE Stop: 02/16/21 14:22 Last Admin: 02/16/21 14:59 Dose: 5 unit Documented by: Insulin Human Regular (Insulin Regular, Human 100 Units/Ml 3 Ml Vial) 10 unit IV STAT STA Stop: 02/16/21 17:11 Last Admin: 02/16/21 17:19 Dose: 10 units Documented by: Insulin Human Regular (Insulin Regular, Human 100 Units/Ml 3 Ml Vial) 10 unit IV ONETIME ONE Stop: 02/16/21 18:13 Last Admin: 02/16/21 18:14 Dose: 10 units Documented by: Lisinopril (Lisinopril 5 Mg Tab) 2.5 mg PO DAILY [facility] Metolazone (Metolazone 2.5 Mg Tab) 5 mg PO ONETIME ONE Stop: 02/27/21 06:01 Last Admin: 02/27/21 06:07 Dose: 5 mg Documented by: Nitroglycerin (Nitroglycerin 0.4 Mg Tab.Sl) 0.4 mg SL ONETIME ONE Stop: 02/18/21 15:41 Last Admin: 02/18/21 15:47 Dose: 0.4 mg Documented by: Nystatin (Nystatin Topical Powder 30 Gm Bottle) 0 gm TOP Q8H [facility] Last Admin: 02/19/21 03:43 Dose: 1 applic Documented by: Nystatin (Nystatin Topical Powder 30 Gm Bottle) 0 gm TOP Q8HR [facility] Last Admin: 02/28/21 22:12 Dose: 1 applic Documented by: Potassium Chloride (Potassium Chloride 10 Meq Tab.Er) 40 meq PO ONETIME ONE Stop: 02/17/21 03:20 Last Admin: 02/17/21 07:20 Dose: Not Given Documented by: Potassium Chloride (Potassium Chloride 10 Meq Tab.Er) 40 meq PO ONETIME ONE Stop: 02/17/21 07:52 Last Admin: 02/17/21 08:43 Dose: 40 meq Documented by: Potassium Chloride (Potassium Chloride 10% 20 Meq/15 Ml Soln 15 Ml Ud Cup) 40 meq PO ONETIME ONE Stop: 02/17/21 17:01 Last Admin: 02/17/21 17:41 Dose: 40 meq Documented by: Potassium Chloride (Potassium Chloride 10 Meq Tab.Er) 20 meq PO DAILY [facility] Potassium Chloride (Potassium Chloride 10 Meq Tab.Er) 40 meq PO WITHBREAKFAST [facility] Stop: 03/11/21 08:16 Last Admin: 03/11/21 09:15 Dose: 40 meq Documented by: Potassium Chloride (Potassium Chloride 10 Meq Tab.Er) 20 meq PO BID [facility] Stop: 03/08/21 21:01 Last Admin: 03/08/21 20:53 Dose: 20 meq Documented by: Sodium Bicarbonate (Sodium Bicarbonate 8.4% 50 Meq/50 Ml Syringe) 50 meq IVPUSH ONETIME ONE Stop: 02/16/21 15:04 Last Admin: 02/16/21 15:08 Dose: 50 meq Documented by: Sodium Bicarbonate (Sodium Bicarbonate 8.4% 50 Meq/50 Ml Syringe) 100 meq IVPUSH ONETIME ONE Stop: 02/16/21 17:24 Last Admin: 02/16/21 17:49 Dose: 100 meq Documented by: Zolpidem Tartrate (Zolpidem 5 Mg Tab) 5 mg PO ONETIME ONE Stop: 02/18/21 22:06 Last Admin: 02/18/21 22:17 Dose: 5 mg Documented by: Zolpidem Tartrate (Zolpidem 5 Mg Tab) 5 mg PO ONETIME ONE Stop: 02/20/21 00:18 Last Admin: 02/20/21 00:38 Dose: 5 mg Documented by: - Exam Urinary Catheter Total Time: 2Days 13Hours General: Alert, Oriented Lungs: Clear to Auscultation, Normal Respiratory Effort Cardiovascular: Regular Rate, Regular Rhythm GI/Abdominal Exam: Normal Bowel Sounds, Soft, Non-Tender Extremities: No Pedal Edema - Patient Data Lab Results Last 24 hrs: Laboratory Results - last 24 hr 03/13/21 03/13/21 03/13/21 Range/Units 07:59 08:36 08:36 WBC 4.9 L (5.0-10.0) 10^3/uL RBC 4.49 (4.2-5.4) 10^6/uL Hgb 10.2 L (12.0-16.0) g/dL Hct 33.1 L (37.0-47.0) % MCV 73.7 L (80-100) fL MCH 22.7 L (27.0-34.0) pg MCHC 30.8 L (33.0-35.0) g/dL Plt Count 193 (150-450) 10^3/uL Neut % (Auto) 60.0 (42.2-75.2) % Lymph % (Auto) 26.0 (20.5-50.1) % Hays % (Auto) 13.8 H (2-8) % Eos % (Auto) 0.2 L (1.0-3.0) % Baso % (Auto) 0.0 (0.0-1.0) % Sodium 141 (136-145) mmol/L Potassium 4.6 (3.5-5.1) mmol/L Chloride 106 (98-107) mmol/L Carbon Dioxide 25 (21-32) mmol/L Anion Gap 14.6 H (7-13) mEq/L BUN 19 H (7-18) mg/dL Creatinine 0.79 (0.55-1.02) mg/dL Est Cr Clr Drug Dosing 64.44 mL/min Estimated GFR (MDRD) > 60 Glucose 208 H (70-99) mg/dL POC Glucose 144 H (70-99) mg/dL Calcium 8.6 (8.5-10.1) mg/dL 03/13/21 03/13/21 03/13/21 Range/Units 11:30 16:23 20:20 WBC (5.0-10.0) 10^3/uL RBC (4.2-5.4) 10^6/uL Hgb (12.0-16.0) g/dL Hct (37.0-47.0) % MCV (80-100) fL MCH (27.0-34.0) pg MCHC (33.0-35.0) g/dL Plt Count (150-450) 10^3/uL Neut % (Auto) (42.2-75.2) % Lymph % (Auto) (20.5-50.1) % Hays % (Auto) (2-8) % Eos % (Auto) (1.0-3.0) % Baso % (Auto) (0.0-1.0) % Sodium (136-145) mmol/L Potassium (3.5-5.1) mmol/L Chloride (98-107) mmol/L Carbon Dioxide (21-32) mmol/L Anion Gap (7-13) mEq/L BUN (7-18) mg/dL Creatinine (0.55-1.02) mg/dL Est Cr Clr Drug Dosing mL/min Estimated GFR (MDRD) Glucose (70-99) mg/dL POC Glucose 217 H 261 H 225 H (70-99) mg/dL Calcium (8.5-10.1) mg/dL Result Diagrams: 03/13/21 08:36 03/13/21 08:36 Sepsis Event Note - Evaluation Sepsis Screening Result: No Definite Risk - Focused Exam Vital Signs: Vital Signs Temp Pulse Resp BP Pulse Ox 03/14/21 04:00 98 F 74 18 139/85 96 - Problem List & Annotations (1) Acute coronary syndrome with high troponin SNOMED Code(s): 714597826, 083207158 Code(s): I24.9 - ACUTE ISCHEMIC HEART DISEASE, UNSPECIFIED Status: Acute Current Visit: Yes (2) Congestive heart failure SNOMED Code(s): 32488786 Code(s): I50.9 - HEART FAILURE, UNSPECIFIED Status: Acute Priority: Medium Current Visit: Yes Onset Date: ~03/05/21 Qualifiers: Heart failure type: combined systolic and diastolic Heart failure chronicity: acute on chronic Qualified Code(s): I50.43 - Acute on chronic combined systolic (congestive) and diastolic (congestive) heart failure (3) DKA (diabetic ketoacidosis) SNOMED Code(s): 755621151, 520835706 Code(s): E11.10 - TYPE 2 DIABETES MELLITUS WITH KETOACIDOSIS WITHOUT COMA Status: Chronic Current Visit: Yes Qualifiers: Diabetes mellitus type: type 2 Diabetes mellitus complication detail: wit hout coma Qualified Code(s): E11.10 - Type 2 diabetes mellitus with ketoa cidosis without coma (4) Metabolic acidosis due to diabetes mellitus SNOMED Code(s): 505550258 Code(s): E11.69 - TYPE 2 DIABETES MELLITUS WITH OTHER SPECIFIED COMPLICATION; E87.2 - ACIDOSIS Status: Acute Current Visit: No - Problem List Review Problem List Initiated/Reviewed/Updated: Yes - Assessment Assessment:: Assessment: Generalized weakness: continue with PT/OT Awaiting SNF placement. difficulty finding accepting facility due to finances, lack of insurance type 2 diabetes mellitus, insulin-dependent continue with lantus, humolog Demand Ischemia. Resolved. Pt has a h/o CAD and is on Asa, Plavix controlled continue with coreg, zetia, lisinopril Chronic congestive heart failure- resolved cont lisinopril, coreg, lasix Will need out pt echo after discharge to further characterize Hypokalemia resolved On oral replacement. recheck bmp periodically H/o cerebrovascular accident: treat with asa BP control. VTE prophylaxis: SQ Lovenox Discharge planning : to SNF when bed available. discussed with SW - Plan Plan:: .
[2021-03-14] MEDS: Furosemide 40 MG Tab PO SCH (08:49)
[2021-03-14] MEDS: Aspirin 81 MG Tab.EC PO SCH (08:49)
[2021-03-14] MEDS: Clopidogrel 75 MG Tab PO SCH (08:49)
[2021-03-14] MEDS: Carvedilol 3.125 MG Tab PO SCH ×2 (08:50→17:31)
[2021-03-14] MEDS: Ferrous Sulfate 325 MG Tab PO SCH (08:50)
[2021-03-14] MEDS: Lisinopril 10 MG Tab PO SCH (08:50)
[2021-03-14] MEDS: Insulin Lispro 100 Units/ML 3 ML Vial SUBCUT SCH ×7 (08:51→20:37)
[2021-03-14] MEDS: Enoxaparin 40 MG/0.4 ML Syringe SUBCUT SCH (08:53)
[2021-03-14] MEDS: traZODone 50 MG Tab PO SCH (20:06)
[2021-03-14] MEDS: Ezetimibe 10 MG Tab PO SCH (20:06)
[2021-03-14] MEDS: Insulin Glarg,Human.Rec.Analog 100 Unit/ML SUBCUT SCH (20:37)
[2021-03-14] MEDS: Zolpidem 5 MG Tab PO PRN (22:03)
[2021-03-15] MEDS: Pantoprazole 40 MG Tab.CR PO SCH (05:51)
[2021-03-15] MEDS: Carvedilol 3.125 MG Tab PO SCH ×2 (10:36→18:15)
[2021-03-15] MEDS: Aspirin 81 MG Tab.EC PO SCH (10:36)
[2021-03-15] MEDS: Enoxaparin 40 MG/0.4 ML Syringe SUBCUT SCH (10:37)
[2021-03-15] MEDS: Lisinopril 10 MG Tab PO SCH (10:37)
[2021-03-15] MEDS: Clopidogrel 75 MG Tab PO SCH (10:37)
[2021-03-15] MEDS: Furosemide 40 MG Tab PO SCH (10:37)
[2021-03-15] MEDS: Insulin Lispro 100 Units/ML 3 ML Vial SUBCUT SCH ×7 (10:42→20:29)
--- NOTE | 2021-03-15 13:31 | PCM.PN ---
- General Info Date of Service: 03/15/21 Admission Dx/Problem (Free Text): She has no new complaints this morning. She remains afebrile. she is eating well, did not get out of bed Functional Status: Reports: Pain Controlled, Tolerating Diet. Denies: Ambulating - Review of Systems Pulmonary: Denies: Shortness of Breath Cardiovascular: Denies: Chest Pain, Edema Genitourinary: Denies: Dysuria Neurological: Reports: Difficulty Walking Psychiatric: Denies: Confusion - Patient Data Vitals - Most Recent: Last Vital Signs Temp 96.0 F L 03/15/21 12:00 Pulse 71 03/15/21 12:00 Resp 18 03/15/21 12:00 BP 121/59 L 03/15/21 12:00 Pulse Ox 97 03/15/21 12:00 Weight - Most Recent: 176 lb 5.6 oz I&O - Last 24 Hours: Intake & Output 03/14/21 03/15/21 03/15/21 22:59 06:59 14:59 Intake Total 490 240 Balance 490 240 Lab Results Last 24 Hours: Laboratory Results - last 24 hr 03/14/21 03/14/21 03/15/21 Range/Units 16:52 20:34 07:32 POC Glucose 305 H 310 H 291 H (70-99) mg/dL 03/15/21 Range/Units 11:47 POC Glucose 362 H (70-99) mg/dL Med Orders - Current: Current Medications Acetaminophen (Acetaminophen 500 Mg Tab) 500 mg PO Q4H PRN PRN Reason: Pain/Fever Last Admin: 03/09/21 20:36 Dose: 500 mg Documented by: Aspirin (Aspirin 81 Mg Tab.Ec) 81 mg PO DAILY [facility] Last Admin: 03/15/21 10:36 Dose: 81 mg Documented by: Carvedilol (Carvedilol 3.125 Mg Tab) 6.25 mg PO BIDMEALS [facility] Last Admin: 03/15/21 10:36 Dose: 6.25 mg Documented by: Clopidogrel Bisulfate (Clopidogrel 75 Mg Tab) 75 mg PO DAILY [facility] Last Admin: 03/15/21 10:37 Dose: 75 mg Documented by: Dextrose/Water (50% Dextrose In Water 50 Ml Syringe) 25 ml IVPUSH Q15M PRN PRN Reason: Hypoglycemia Last Admin: 02/28/21 08:35 Dose: 25 ml Documented by: Dextrose/Water (50% Dextrose In Water 50 Ml Syringe) 50 ml IVPUSH Q15M PRN PRN Reason: Hypoglycemia Ezetimibe (Ezetimibe 10 Mg Tab) 10 mg PO BEDTIME [facility] Last Admin: 03/14/21 20:06 Dose: 10 mg Documented by: Enoxaparin Sodium (Enoxaparin 40 Mg/0.4 Ml Syringe) 40 mg SUBCUT DAILY [facility] Last Admin: 03/15/21 10:37 Dose: 40 mg Documented by: Ferrous Sulfate (Ferrous Sulfate 325 Mg Tab) 325 mg PO Q48H [facility] Last Admin: 03/14/21 08:50 Dose: 325 mg Documented by: Furosemide (Furosemide 40 Mg Tab) 40 mg PO DAILY [facility] Last Admin: 03/15/21 10:37 Dose: 40 mg Documented by: Glucagon (Glucagon,Human Recombinant 1 Mg Vial) 1 mg IM Q15M PRN PRN Reason: Hypoglycemia Insulin Glargine (Insulin Glarg,Human.Rec.Analog 100 Unit/Ml) 20 unit SUBCUT BEDTIME [facility] Last Admin: 03/14/21 20:37 Dose: 20 units Documented by: Insulin Human Lispro (Insulin Lispro 100 Units/Ml 3 Ml Vial) 0 unit SUBCUT WITHMEALSANDBED [facility]; Protocol Last Admin: 03/15/21 10:42 Dose: 6 units Documented by: Insulin Human Lispro (Insulin Lispro 100 Units/Ml 3 Ml Vial) 2 unit SUBCUT TIDMEALS [facility] Last Admin: 03/15/21 10:49 Dose: 2 units Documented by: Lisinopril (Lisinopril 10 Mg Tab) 10 mg PO DAILY [facility] Last Admin: 03/15/21 10:37 Dose: 10 mg Documented by: Melatonin (Melatonin 3 Mg Tab) 6 mg PO BEDTIME PRN PRN Reason: Sleep Last Admin: 03/11/21 21:01 Dose: 6 mg Documented by: Nystatin (Nystatin Topical Powder 30 Gm Bottle) 1 gm TOP Q8H PRN PRN Reason: Rash Pantoprazole Sodium (Pantoprazole 40 Mg Tab.Cr) 40 mg PO ACBREAKFAST [facility] Last Admin: 03/15/21 05:51 Dose: 40 mg Documented by: Trazodone HCl (Trazodone 50 Mg Tab) 50 mg PO BEDTIME [facility] Last Admin: 03/14/21 20:06 Dose: 50 mg Documented by: Zolpidem Tartrate (Zolpidem 5 Mg Tab) 5 mg PO BEDTIME PRN PRN Reason: Sleep Last Admin: 03/14/21 22:03 Dose: 5 mg Documented by: Discontinued Medications COVID-19 Vaccine mRNA LNP-S (PFR) (PF) (Covid-19 Vacc, Mrna(Pfizer)/Pf 30 Mcg/0.3 Ml Vial) 30 mcg IM .ONCE ONE Stop: 02/25/21 16:21 Last Admin: 02/25/21 17:11 Dose: Not Given Documented by: Carvedilol (Carvedilol 6.25 Mg Tab) 6.25 mg PO ONETIME ONE Stop: 02/19/21 12:28 Last Admin: 02/19/21 12:36 Dose: Not Given Documented by: Carvedilol (Carvedilol 3.125 Mg Tab) 3.125 mg PO BIDMEALS ERIN Last Admin: 02/28/21 09:52 Dose: 3.125 mg Documented by: Clopidogrel Bisulfate (Clopidogrel 75 Mg Tab) 225 mg PO ONETIME STA Stop: 02/17/21 11:11 Last Admin: 02/17/21 11:24 Dose: 225 mg Documented by: Dextrose/Water (50% Dextrose In Water 50 Ml Syringe) 50 ml IVPUSH Q15M PRN PRN Reason: Hypoglycemia Dextrose/Water (50% Dextrose In Water 50 Ml Syringe) 50 ml IVPUSH Q15M PRN PRN Reason: Hypoglycemia Dextrose/Water (50% Dextrose In Water 50 Ml Syringe) 50 ml IVPUSH Q15M PRN PRN Reason: Hypoglycemia Dextrose/Water (50% Dextrose In Water 50 Ml Syringe) Confirm Administered Dose 50 ml .ROUTE .STK-MED ONE Stop: 02/20/21 07:41 Last Admin: 02/20/21 08:14 Dose: Not Given Documented by: Dextrose/Water (50% Dextrose In Water 50 Ml Syringe) 50 ml IVPUSH ONETIME ONE Stop: 02/26/21 07:46 Last Admin: 02/26/21 07:45 Dose: 50 ml Documented by: Furosemide (Furosemide 20 Mg/2 Ml Vial) 20 mg IVPUSH ONETIME ONE Stop: 02/16/21 15:51 Last Admin: 02/16/21 15:54 Dose: 20 mg Documented by: Furosemide (Furosemide 40 Mg/4 Ml Vial) 40 mg IVPUSH ONETIME ONE Stop: 02/23/21 16:01 Last Admin: 02/23/21 16:00 Dose: 40 mg Documented by: Furosemide (Furosemide 20 Mg Tab) 20 mg PO DAILY [facility] Last Admin: 03/03/21 10:17 Dose: 20 mg Documented by: Furosemide (Furosemide 20 Mg Tab) 20 mg PO BIDDIURETIC [facility] Last Admin: 03/04/21 08:31 Dose: 20 mg Documented by: Furosemide (Furosemide 20 Mg/2 Ml Vial) 20 mg IVPUSH Q8H [facility] Last Admin: 03/07/21 05:58 Dose: 20 mg Documented by: Furosemide (Furosemide 40 Mg Tab) 40 mg PO DAILY [facility] Glucagon (Glucagon,Human Recombinant 1 Mg Vial) 1 mg IM Q15M PRN PRN Reason: Hypoglycemia Glucagon (Glucagon,Human Recombinant 1 Mg Vial) 1 mg IM Q15M PRN PRN Reason: Hypoglycemia Heparin Sodium (Porcine) (Heparin Sodium 5,000 Units/Ml Vial) 4,700 units IV O NETIME ONE Stop: 02/17/21 08:31 Last Admin: 02/17/21 08:34 Dose: 4,700 units Documented by: Heparin Sodium (Porcine) (Heparin Sodium 5,000 Units/Ml Vial) 1,000 units IVPUSH ONETIME ONE Stop: 02/17/21 22:56 Last Admin: 02/17/21 23:14 Dose: 1,000 units Documented by: Heparin Sodium (Porcine) (Heparin Sodium 5,000 Units/Ml Vial) 2,000 units IVPUSH .BOLUS ONE Stop: 02/18/21 09:18 Last Admin: 02/18/21 09:35 Dose: 2,000 units Documented by: Heparin Sodium (Porcine) (Heparin Sodium 5,000 Units/Ml Vial) 2,000 units IVPUSH ONETIME ONE Stop: 02/18/21 22:43 Last Admin: 02/18/21 22:55 Dose: 2,000 units Documented by: Sodium Chloride (Normal Saline) 1,000 mls @ 999 mls/hr IV .BOLUS ONE Stop: 02/16/21 15:00 Last Admin: 02/16/21 17:42 Dose: 999 mls/hr Documented by: Albumin Human (Buminate 5%) 250 mls @ 250 mls/hr IV ASDIRECTED [facility] Last Admin: 02/16/21 15:01 Dose: 250 mls/hr Documented by: Sodium Bicarbonate 100 meq/ (Dextrose/Water) 1,100 mls @ 100 mls/hr IV ONETIME ONE Stop: 02/17/21 02:02 Last Admin: 02/16/21 15:18 Dose: 100 mls/hr Documented by: Insulin Regular in 0.9 % NACL (Myxredlin In Ns 100 Unit/100 Ml) 100 unit in 100 mls @ 7.82 mls/hr IV TITRATE ERIN; Protocol Sodium Bicarbonate 100 meq/ (Dextrose/Water) 1,100 mls @ 999 mls/hr IV ONETIME ONE Stop: 02/16/21 18:27 Last Admin: 02/16/21 22:50 Dose: Not Given Documented by: Sodium Chloride (Normal Saline) 1,000 mls @ 250 mls/hr IV ASDIRECTED ERIN Insulin Regular in 0.9 % NACL (Myxredlin In Ns 100 Unit/100 Ml) 100 unit in 100 mls @ 7.82 mls/hr IV TITRATE ERIN; Protocol Last Titration: 02/17/21 02:36 Dose: 0 units/kg/hr, 0 mls/hr Documented by: Levofloxacin/Dextrose 500 mg/ (Premix) 100 mls @ 100 mls/hr IV Q24H ERIN Last Admin: 02/16/21 20:54 Dose: 100 mls/hr Documented by: Sodium Chloride (Normal Saline) 1,000 mls @ 1,000 mls/hr IV ASDIRECTED ERIN Stop: 02/16/21 19:59 Last Admin: 02/16/21 19:02 Dose: 1,000 mls/hr Documented by: Potassium Chloride/Sodium Chloride (Normal Saline With 40 Meq Kcl) 1,000 mls @ 250 mls/hr IV ASDIRECTED ERIN Last Admin: 02/17/21 01:48 Dose: 250 mls/hr Documented by: Sodium Bicarbonate 100 meq/ (Dextrose/Water) 1,100 mls @ 150 mls/hr IV ONETIME ONE Stop: 02/17/21 10:39 Last Infusion: 02/17/21 07:55 Dose: 50 mls/hr Documented by: Heparin Sodium/Sodium Chloride (Heparin 25,000 Units In 1/2 Ns 500 Ml) 25,000 units in 500 mls @ 18.768 mls/hr IV TITRATE ERIN; Protocol Last Admin: 02/19/21 03:31 Dose: 22 units/kg/hr, 34.408 mls/hr Documented by: Levofloxacin/Dextrose 500 mg/ (Premix) 100 mls @ 100 mls/hr IV Q48H ERIN Last Admin: 02/18/21 17:21 Dose: 100 mls/hr Documented by: Lactated Ringer's (Ringers, Lactated) 1,000 mls @ 125 mls/hr IV ASDIRECTED ERIN Last Admin: 02/19/21 05:45 Dose: 125 mls/hr Documented by: Levofloxacin/Dextrose 750 mg/ (Premix) 150 mls @ 100 mls/hr IV Q24H ERIN Stop: 02/21/21 11:01 Last Admin: 02/21/21 11:15 Dose: 100 mls/hr Documented by: Potassium Chloride 20 meq/ (Premix) 100 mls @ 50 mls/hr IV ONETIME ONE Stop: 02/20/21 09:22 Last Admin: 02/20/21 08:00 Dose: 50 mls/hr Documented by: Calcium Gluconate 1 gm/ Sodium (Chloride) 110 mls @ 110 mls/hr IV ONETIME ONE Stop: 02/20/21 08:29 Last Admin: 02/20/21 08:14 Dose: 110 mls/hr Documented by: Albumin Human 50 gm/ Premix 200 mls @ 100 mls/hr IV NOW ONE Stop: 02/23/21 13:21 Last Admin: 02/23/21 12:12 Dose: 100 mls/hr Documented by: Insulin Glargine (Insulin Glarg,Human.Rec.Analog 100 Unit/Ml) 35 unit SUBCUT ONETIME ONE Stop: 02/17/21 04:13 Last Admin: 02/17/21 04:28 Dose: 35 units Documented by: Insulin Glargine (Insulin Glarg,Human.Rec.Analog 100 Unit/Ml) 20 unit SUBCUT ONETIME ONE Stop: 02/19/21 09:23 Last Admin: 02/19/21 09:57 Dose: 20 units Documented by: Insulin Glargine (Insulin Glarg,Human.Rec.Analog 100 Unit/Ml) 40 unit SUBCUT BEDTIME ERIN Last Admin: 02/19/21 21:47 Dose: 40 units Documented by: Insulin Glargine (Insulin Glarg,Human.Rec.Analog 100 Unit/Ml) 20 unit SUBCUT BEDTIME [facility] Last Admin: 03/05/21 20:55 Dose: 20 units Documented by: Insulin Glargine (Insulin Glarg,Human.Rec.Analog 100 Unit/Ml) 24 unit SUBCUT BEDTIME [facility] Last Admin: 03/06/21 20:47 Dose: 24 units Documented by: Insulin Human Lispro (Insulin Lispro 100 Units/Ml 3 Ml Vial) 5 unit SUBCUT ONETIME ONE Stop: 02/17/21 04:15 Last Admin: 02/17/21 04:29 Dose: 5 units Documented by: Insulin Human Lispro (Insulin Lispro 100 Units/Ml 3 Ml Vial) 0 unit SUBCUT WITHMEALSANDBED [facility]; Protocol Last Admin: 02/18/21 09:04 Dose: Not Given Documented by: Insulin Human Lispro (Insulin Lispro 100 Units/Ml 3 Ml Vial) 14 unit SUBCUT ONETIME ONE Stop: 02/19/21 12:27 Last Admin: 02/19/21 12:36 Dose: Not Given Documented by: Insulin Human Lispro (Insulin Lispro 100 Units/Ml 3 Ml Vial) 12 unit SUBCUT ONETIME ONE Stop: 02/19/21 12:27 Last Admin: 02/19/21 12:41 Dose: 12 units Documented by: Insulin Human Regular (Insulin Regular, Human 100 Units/Ml 3 Ml Vial) 5 unit IV ONETIME ONE Stop: 02/16/21 14:22 Last Admin: 02/16/21 14:59 Dose: 5 unit Documented by: Insulin Human Regular (Insulin Regular, Human 100 Units/Ml 3 Ml Vial) 10 unit IV STAT STA Stop: 02/16/21 17:11 Last Admin: 02/16/21 17:19 Dose: 10 units Documented by: Insulin Human Regular (Insulin Regular, Human 100 Units/Ml 3 Ml Vial) 10 unit IV ONETIME ONE Stop: 02/16/21 18:13 Last Admin: 02/16/21 18:14 Dose: 10 units Documented by: Lisinopril (Lisinopril 5 Mg Tab) 2.5 mg PO DAILY [facility] Metolazone (Metolazone 2.5 Mg Tab) 5 mg PO ONETIME ONE Stop: 02/27/21 06:01 Last Admin: 02/27/21 06:07 Dose: 5 mg Documented by: Nitroglycerin (Nitroglycerin 0.4 Mg Tab.Sl) 0.4 mg SL ONETIME ONE Stop: 02/18/21 15:41 Last Admin: 02/18/21 15:47 Dose: 0.4 mg Documented by: Nystatin (Nystatin Topical Powder 30 Gm Bottle) 0 gm TOP Q8H [facility] Last Admin: 02/19/21 03:43 Dose: 1 applic Documented by: Nystatin (Nystatin Topical Powder 30 Gm Bottle) 0 gm TOP Q8HR [facility] Last Admin: 02/28/21 22:12 Dose: 1 applic Documented by: Potassium Chloride (Potassium Chloride 10 Meq Tab.Er) 40 meq PO ONETIME ONE Stop: 02/17/21 03:20 Last Admin: 02/17/21 07:20 Dose: Not Given Documented by: Potassium Chloride (Potassium Chloride 10 Meq Tab.Er) 40 meq PO ONETIME ONE Stop: 02/17/21 07:52 Last Admin: 02/17/21 08:43 Dose: 40 meq Documented by: Potassium Chloride (Potassium Chloride 10% 20 Meq/15 Ml Soln 15 Ml Ud Cup) 40 meq PO ONETIME ONE Stop: 02/17/21 17:01 Last Admin: 02/17/21 17:41 Dose: 40 meq Documented by: Potassium Chloride (Potassium Chloride 10 Meq Tab.Er) 20 meq PO DAILY [facility] Potassium Chloride (Potassium Chloride 10 Meq Tab.Er) 40 meq PO WITHBREAKFAST [facility] Stop: 03/11/21 08:16 Last Admin: 03/11/21 09:15 Dose: 40 meq Documented by: Potassium Chloride (Potassium Chloride 10 Meq Tab.Er) 20 meq PO BID [facility] Stop: 03/08/21 21:01 Last Admin: 03/08/21 20:53 Dose: 20 meq Documented by: Sodium Bicarbonate (Sodium Bicarbonate 8.4% 50 Meq/50 Ml Syringe) 50 meq IVPUSH ONETIME ONE Stop: 02/16/21 15:04 Last Admin: 02/16/21 15:08 Dose: 50 meq Documented by: Sodium Bicarbonate (Sodium Bicarbonate 8.4% 50 Meq/50 Ml Syringe) 100 meq IVPUSH ONETIME ONE Stop: 02/16/21 17:24 Last Admin: 02/16/21 17:49 Dose: 100 meq Documented by: Zolpidem Tartrate (Zolpidem 5 Mg Tab) 5 mg PO ONETIME ONE Stop: 02/18/21 22:06 Last Admin: 02/18/21 22:17 Dose: 5 mg Documented by: Zolpidem Tartrate (Zolpidem 5 Mg Tab) 5 mg PO ONETIME ONE Stop: 02/20/21 00:18 Last Admin: 02/20/21 00:38 Dose: 5 mg Documented by: - Exam Urinary Catheter Total Time: 2Days 13Hours General: Alert, Oriented Neck: Supple Lungs: Clear to Auscultation, Normal Respiratory Effort Cardiovascular: Regular Rate, Regular Rhythm GI/Abdominal Exam: Normal Bowel Sounds, Soft, Non-Tender Extremities: No Pedal Edema - Patient Data Lab Results Last 24 hrs: Laboratory Results - last 24 hr 03/14/21 03/14/21 03/15/21 Range/Units 16:52 20:34 07:32 POC Glucose 305 H 310 H 291 H (70-99) mg/dL 03/15/21 Range/Units 11:47 POC Glucose 362 H (70-99) mg/dL Result Diagrams: 03/13/21 08:36 03/13/21 08:36 Sepsis Event Note - Evaluation Sepsis Screening Result: No Definite Risk - Focused Exam Vital Signs: Vital Signs Temp Pulse Pulse Resp BP BP Pulse Ox 03/15/21 12:00 96.0 F L 71 18 121/59 L 97 03/15/21 10:37 136/72 03/15/21 10:36 72 136/72 03/15/21 07:43 96.6 F L 72 18 136/72 95 - Problem List & Annotations (1) Acute coronary syndrome with high troponin SNOMED Code(s): 688806303, 001900604 Code(s): I24.9 - ACUTE ISCHEMIC HEART DISEASE, UNSPECIFIED Status: Acute Current Visit: Yes (2) Congestive heart failure SNOMED Code(s): 63929798 Code(s): I50.9 - HEART FAILURE, UNSPECIFIED Status: Acute Priority: Medium Current Visit: Yes Onset Date: ~03/05/21 Qualifiers: Heart failure type: combined systolic and diastolic Heart failure chronicity: acute on chronic Qualified Code(s): I50.43 - Acute on chronic combined systolic (congestive) and diastolic (congestive) heart failure (3) DKA (diabetic ketoacidosis) SNOMED Code(s): 581865678, 648498261 Code(s): E11.10 - TYPE 2 DIABETES MELLITUS WITH KETOACIDOSIS WITHOUT COMA Status: Chronic Current Visit: Yes Qualifiers: Diabetes mellitus type: type 2 Diabetes mellitus complication detail: without coma Qualified Code(s): E11.10 - Type 2 diabetes mellitus with ketoacidosis without coma (4) Metabolic acidosis due to diabetes mellitus SNOMED Code(s): 430624239 Code(s): E11.69 - TYPE 2 DIABETES MELLITUS WITH OTHER SPECIFIED COMPLICATION; E87.2 - ACIDOSIS Status: Acute Current Visit: No - Problem List Review Problem List Initiated/Reviewed/Updated: Yes - Assessment Assessment:: Assessment: Generalized weakness: continue with PT/OT d/w family- family will be able to provide 24 caregiver plan to discharge home with home care type 2 diabetes mellitus, insulin-dependent continue with lantus, humolog Demand Ischemia. Resolved. Pt has a h/o CAD and is on Asa, Plavix controlled continue with coreg, zetia, lisinopril Chronic congestive heart failure- resolved cont lisinopril, coreg, lasix Will need out pt echo after discharge to further characterize Hypokalemia resolved On oral replacement. recheck bmp periodically H/o cerebrovascular accident: treat with asa BP control. VTE prophylaxis: SQ Lovenox Discharge planning : home with home care - Plan Plan:: .
[2021-03-15] MEDS: traZODone 50 MG Tab PO SCH (20:30)
[2021-03-15] MEDS: Insulin Glarg,Human.Rec.Analog 100 Unit/ML SUBCUT SCH (20:30)
[2021-03-15] MEDS: Ezetimibe 10 MG Tab PO SCH (20:30)
[2021-03-15] MEDS: Zolpidem 5 MG Tab PO PRN (20:30)
[2021-03-16] MEDS: Pantoprazole 40 MG Tab.CR PO SCH (06:01)
[2021-03-16] MEDS: Insulin Lispro 100 Units/ML 3 ML Vial SUBCUT SCH ×7 (08:29→20:44)
[2021-03-16] MEDS: Enoxaparin 40 MG/0.4 ML Syringe SUBCUT SCH (08:30)
[2021-03-16] MEDS: Aspirin 81 MG Tab.EC PO SCH (08:31)
[2021-03-16] MEDS: Carvedilol 3.125 MG Tab PO SCH ×2 (08:31→17:23)
[2021-03-16] MEDS: Clopidogrel 75 MG Tab PO SCH (08:31)
[2021-03-16] MEDS: Ferrous Sulfate 325 MG Tab PO SCH (08:31)
[2021-03-16] MEDS: Furosemide 40 MG Tab PO SCH (08:31)
[2021-03-16] MEDS: Lisinopril 10 MG Tab PO SCH (08:31)
--- NOTE | 2021-03-16 12:26 | PCM.PN ---
- General Info Date of Service: 03/16/21 Admission Dx/Problem (Free Text): She has no new complaints this morning. She remains afebrile. she is eating well, Functional Status: Reports: Pain Controlled, Tolerating Diet. Denies: Ambulating - Review of Systems Pulmonary: Denies: Shortness of Breath Cardiovascular: Denies: Chest Pain Neurological: Denies: Confusion - Patient Data Vitals - Most Recent: Last Vital Signs Temp 98.5 F 03/16/21 12:00 Pulse 78 03/16/21 12:00 Resp 20 03/16/21 12:00 BP 123/79 03/16/21 12:00 Pulse Ox 96 03/16/21 07:50 Weight - Most Recent: 178 lb 1.2 oz I&O - Last 24 Hours: Intake & Output 03/15/21 03/16/21 03/16/21 22:59 06:59 14:59 Intake Total 330 240 Balance 330 240 Lab Results Last 24 Hours: Laboratory Results - last 24 hr 03/15/21 03/15/21 03/16/21 Range/Units 17:05 20:26 07:34 POC Glucose 112 H 216 H 217 H (70-99) mg/dL 03/16/21 Range/Units 11:43 POC Glucose 306 H (70-99) mg/dL Med Orders - Current: Current Medications Acetaminophen (Acetaminophen 500 Mg Tab) 500 mg PO Q4H PRN PRN Reason: Pain/Fever Last Admin: 03/09/21 20:36 Dose: 500 mg Documented by: Aspirin (Aspirin 81 Mg Tab.Ec) 81 mg PO DAILY [facility] Last Admin: 03/16/21 08:31 Dose: 81 mg Documented by: Carvedilol (Carvedilol 3.125 Mg Tab) 6.25 mg PO BIDMEALS [facility] Last Admin: 03/16/21 08:31 Dose: 6.25 mg Documented by: Clopidogrel Bisulfate (Clopidogrel 75 Mg Tab) 75 mg PO DAILY [facility] Last Admin: 03/16/21 08:31 Dose: 75 mg Documented by: Dextrose/Water (50% Dextrose In Water 50 Ml Syringe) 25 ml IVPUSH Q15M PRN PRN Reason: Hypoglycemia Last Admin: 02/28/21 08:35 Dose: 25 ml Documented by: Dextrose/Water (50% Dextrose In Water 50 Ml Syringe) 50 ml IVPUSH Q15M PRN PRN Reason: Hypoglycemia Ezetimibe (Ezetimibe 10 Mg Tab) 10 mg PO BEDTIME [facility] Last Admin: 03/15/21 20:30 Dose: 10 mg Documented by: Enoxaparin Sodium (Enoxaparin 40 Mg/0.4 Ml Syringe) 40 mg SUBCUT DAILY [facility] Last Admin: 03/16/21 08:30 Dose: 40 mg Documented by: Ferrous Sulfate (Ferrous Sulfate 325 Mg Tab) 325 mg PO Q48H [facility] Last Admin: 03/16/21 08:31 Dose: 325 mg Documented by: Furosemide (Furosemide 40 Mg Tab) 40 mg PO DAILY [facility] Last Admin: 03/16/21 08:31 Dose: 40 mg Documented by: Glucagon (Glucagon,Human Recombinant 1 Mg Vial) 1 mg IM Q15M PRN PRN Reason: Hypoglycemia Insulin Glargine (Insulin Glarg,Human.Rec.Analog 100 Unit/Ml) 20 unit SUBCUT BE DTIME [facility] Last Admin: 03/15/21 20:30 Dose: 20 units Documented by: Insulin Human Lispro (Insulin Lispro 100 Units/Ml 3 Ml Vial) 0 unit SUBCUT WITHMEALSANDBED [facility]; Protocol Last Admin: 03/16/21 12:19 Dose: 8 units Documented by: Insulin Human Lispro (Insulin Lispro 100 Units/Ml 3 Ml Vial) 2 unit SUBCUT TIDMEALS [facility] Last Admin: 03/16/21 12:20 Dose: 2 units Documented by: Lisinopril (Lisinopril 10 Mg Tab) 10 mg PO DAILY [facility] Last Admin: 03/16/21 08:31 Dose: 10 mg Documented by: Melatonin (Melatonin 3 Mg Tab) 6 mg PO BEDTIME PRN PRN Reason: Sleep Last Admin: 03/11/21 21:01 Dose: 6 mg Documented by: Nystatin (Nystatin Topical Powder 30 Gm Bottle) 1 gm TOP Q8H PRN PRN Reason: Rash Pantoprazole Sodium (Pantoprazole 40 Mg Tab.Cr) 40 mg PO ACBREAKFAST [facility] Last Admin: 03/16/21 06:01 Dose: 40 mg Documented by: Trazodone HCl (Trazodone 50 Mg Tab) 50 mg PO BEDTIME [facility] Last Admin: 03/15/21 20:30 Dose: 50 mg Documented by: Zolpidem Tartrate (Zolpidem 5 Mg Tab) 5 mg PO BEDTIME PRN PRN Reason: Sleep Last Admin: 03/15/21 20:30 Dose: 5 mg Documented by: Discontinued Medications COVID-19 Vaccine mRNA LNP-S (PFR) (PF) (Covid-19 Vacc, Mrna(Pfizer)/Pf 30 Mcg/0. 3 Ml Vial) 30 mcg IM .ONCE ONE Stop: 02/25/21 16:21 Last Admin: 02/25/21 17:11 Dose: Not Given Documented by: Carvedilol (Carvedilol 6.25 Mg Tab) 6.25 mg PO ONETIME ONE Stop: 02/19/21 12:28 Last Admin: 02/19/21 12:36 Dose: Not Given Documented by: Carvedilol (Carvedilol 3.125 Mg Tab) 3.125 mg PO BIDMEALS ERIN Last Admin: 02/28/21 09:52 Dose: 3.125 mg Documented by: Clopidogrel Bisulfate (Clopidogrel 75 Mg Tab) 225 mg PO ONETIME STA Stop: 02/17/21 11:11 Last Admin: 02/17/21 11:24 Dose: 225 mg Documented by: Dextrose/Water (50% Dextrose In Water 50 Ml Syringe) 50 ml IVPUSH Q15M PRN PRN Reason: Hypoglycemia Dextrose/Water (50% Dextrose In Water 50 Ml Syringe) 50 ml IVPUSH Q15M PRN PRN Reason: Hypoglycemia Dextrose/Water (50% Dextrose In Water 50 Ml Syringe) 50 ml IVPUSH Q15M PRN PRN Reason: Hypoglycemia Dextrose/Water (50% Dextrose In Water 50 Ml Syringe) Confirm Administered Dose 50 ml .ROUTE .STK-MED ONE Stop: 02/20/21 07:41 Last Admin: 02/20/21 08:14 Dose: Not Given Documented by: Dextrose/Water (50% Dextrose In Water 50 Ml Syringe) 50 ml IVPUSH ONETIME ONE Stop: 02/26/21 07:46 Last Admin: 02/26/21 07:45 Dose: 50 ml Documented by: Furosemide (Furosemide 20 Mg/2 Ml Vial) 20 mg IVPUSH ONETIME ONE Stop: 02/16/21 15:51 Last Admin: 02/16/21 15:54 Dose: 20 mg Documented by: Furosemide (Furosemide 40 Mg/4 Ml Vial) 40 mg IVPUSH ONETIME ONE Stop: 02/23/21 16:01 Last Admin: 02/23/21 16:00 Dose: 40 mg Documented by: Furosemide (Furosemide 20 Mg Tab) 20 mg PO DAILY [facility] Last Admin: 03/03/21 10:17 Dose: 20 mg Documented by: Furosemide (Furosemide 20 Mg Tab) 20 mg PO BIDDIURETIC ERIN Last Admin: 03/04/21 08:31 Dose: 20 mg Documented by: Furosemide (Furosemide 20 Mg/2 Ml Vial) 20 mg IVPUSH Q8H [facility] Last Admin: 03/07/21 05:58 Dose: 20 mg Documented by: Furosemide (Furosemide 40 Mg Tab) 40 mg PO DAILY [facility] Glucagon (Glucagon,Human Recombinant 1 Mg Vial) 1 mg IM Q15M PRN PRN Reason: Hypoglycemia Glucagon (Glucagon,Human Recombinant 1 Mg Vial) 1 mg IM Q15M PRN PRN Reason: Hypoglycemia Heparin Sodium (Porcine) (Heparin Sodium 5,000 Units/Ml Vial) 4,700 units IV ONETIME ONE Stop: 02/17/21 08:31 Last Admin: 02/17/21 08:34 Dose: 4,700 units Documented by: Heparin Sodium (Porcine) (Heparin Sodium 5,000 Units/Ml Vial) 1,000 units IVPUSH ONETIME ONE Stop: 02/17/21 22:56 Last Admin: 02/17/21 23:14 Dose: 1,000 units Documented by: Heparin Sodium (Porcine) (Heparin Sodium 5,000 Units/Ml Vial) 2,000 units I VPUSH .BOLUS ONE Stop: 02/18/21 09:18 Last Admin: 02/18/21 09:35 Dose: 2,000 units Documented by: Heparin Sodium (Porcine) (Heparin Sodium 5,000 Units/Ml Vial) 2,000 units IVPUSH ONETIME ONE Stop: 02/18/21 22:43 Last Admin: 02/18/21 22:55 Dose: 2,000 units Documented by: Sodium Chloride (Normal Saline) 1,000 mls @ 999 mls/hr IV .BOLUS ONE Stop: 02/16/21 15:00 Last Admin: 02/16/21 17:42 Dose: 999 mls/hr Documented by: Albumin Human (Buminate 5%) 250 mls @ 250 mls/hr IV ASDIRECTED [facility] Last Admin: 02/16/21 15:01 Dose: 250 mls/hr Documented by: Sodium Bicarbonate 100 meq/ (Dextrose/Water) 1,100 mls @ 100 mls/hr IV ONETIME ONE Stop: 02/17/21 02:02 Last Admin: 02/16/21 15:18 Dose: 100 mls/hr Documented by: Insulin Regular in 0.9 % NACL (Myxredlin In Ns 100 Unit/100 Ml) 100 unit in 100 mls @ 7.82 mls/hr IV TITRATE ERIN; Protocol Sodium Bicarbonate 100 meq/ (Dextrose/Water) 1,100 mls @ 999 mls/hr IV ONETIME ONE Stop: 02/16/21 18:27 Last Admin: 02/16/21 22:50 Dose: Not Given Documented by: Sodium Chloride (Normal Saline) 1,000 mls @ 250 mls/hr IV ASDIRECTED [facility] Insulin Regular in 0.9 % NACL (Myxredlin In Ns 100 Unit/100 Ml) 100 unit in 100 mls @ 7.82 mls/hr IV TITRATE ERIN; Protocol Last Titration: 02/17/21 02:36 Dose: 0 units/kg/hr, 0 mls/hr Documented by: Levofloxacin/Dextrose 500 mg/ (Premix) 100 mls @ 100 mls/hr IV Q24H [facility] Last Admin: 02/16/21 20:54 Dose: 100 mls/hr Documented by: Sodium Chloride (Normal Saline) 1,000 mls @ 1,000 mls/hr IV ASDIRECTED [facility] Stop: 02/16/21 19:59 Last Admin: 02/16/21 19:02 Dose: 1,000 mls/hr Documented by: Potassium Chloride/Sodium Chloride (Normal Saline With 40 Meq Kcl) 1,000 mls @ 250 mls/hr IV ASDIRECTED [facility] Last Admin: 02/17/21 01:48 Dose: 250 mls/hr Documented by: Sodium Bicarbonate 100 meq/ (Dextrose/Water) 1,100 mls @ 150 mls/hr IV ONETIME ONE Stop: 02/17/21 10:39 Last Infusion: 02/17/21 07:55 Dose: 50 mls/hr Documented by: Heparin Sodium/Sodium Chloride (Heparin 25,000 Units In 1/2 Ns 500 Ml) 25,000 units in 500 mls @ 18.768 mls/hr IV TITRATE [facility]; Protocol Last Admin: 02/19/21 03:31 Dose: 22 units/kg/hr, 34.408 mls/hr Documented by: Levofloxacin/Dextrose 500 mg/ (Premix) 100 mls @ 100 mls/hr IV Q48H [facility] Last Admin: 02/18/21 17:21 Dose: 100 mls/hr Documented by: Lactated Ringer's (Ringers, Lactated) 1,000 mls @ 125 mls/hr IV ASDIRECTED [facility] Last Admin: 02/19/21 05:45 Dose: 125 mls/hr Documented by: Levofloxacin/Dextrose 750 mg/ (Premix) 150 mls @ 100 mls/hr IV Q24H [facility] Stop: 02/21/21 11:01 Last Admin: 02/21/21 11:15 Dose: 100 mls/hr Documented by: Potassium Chloride 20 meq/ (Premix) 100 mls @ 50 mls/hr IV ONETIME ONE Stop: 02/20/21 09:22 Last Admin: 02/20/21 08:00 Dose: 50 mls/hr Documented by: Calcium Gluconate 1 gm/ Sodium (Chloride) 110 mls @ 110 mls/hr IV ONETIME ONE Stop: 02/20/21 08:29 Last Admin: 02/20/21 08:14 Dose: 110 mls/hr Documented by: Albumin Human 50 gm/ Premix 200 mls @ 100 mls/hr IV NOW ONE Stop: 02/23/21 13:21 Last Admin: 02/23/21 12:12 Dose: 100 mls/hr Documented by: Insulin Glargine (Insulin Glarg,Human.Rec.Analog 100 Unit/Ml) 35 unit SUBCUT ONETIME ONE Stop: 02/17/21 04:13 Last Admin: 02/17/21 04:28 Dose: 35 units Documented by: Insulin Glargine (Insulin Glarg,Human.Rec.Analog 100 Unit/Ml) 20 unit SUBCUT ONETIME ONE Stop: 02/19/21 09:23 Last Admin: 02/19/21 09:57 Dose: 20 units Documented by: Insulin Glargine (Insulin Glarg,Human.Rec.Analog 100 Unit/Ml) 40 unit SUBCUT BEDTIME [facility] Last Admin: 02/19/21 21:47 Dose: 40 units Documented by: Insulin Glargine (Insulin Glarg,Human.Rec.Analog 100 Unit/Ml) 20 unit SUBCUT BEDTIME [facility] Last Admin: 03/05/21 20:55 Dose: 20 units Documented by: Insulin Glargine (Insulin Glarg,Human.Rec.Analog 100 Unit/Ml) 24 unit SUBCUT B EDTIME [facility] Last Admin: 03/06/21 20:47 Dose: 24 units Documented by: Insulin Human Lispro (Insulin Lispro 100 Units/Ml 3 Ml Vial) 5 unit SUBCUT ONETIME ONE Stop: 02/17/21 04:15 Last Admin: 02/17/21 04:29 Dose: 5 units Documented by: Insulin Human Lispro (Insulin Lispro 100 Units/Ml 3 Ml Vial) 0 unit SUBCUT WITHMEALSANDBED [facility]; Protocol Last Admin: 02/18/21 09:04 Dose: Not Given Documented by: Insulin Human Lispro (Insulin Lispro 100 Units/Ml 3 Ml Vial) 14 unit SUBCUT ONETIME ONE Stop: 02/19/21 12:27 Last Admin: 02/19/21 12:36 Dose: Not Given Documented by: Insulin Human Lispro (Insulin Lispro 100 Units/Ml 3 Ml Vial) 12 unit SUBCUT ONETIME ONE Stop: 02/19/21 12:27 Last Admin: 02/19/21 12:41 Dose: 12 units Documented by: Insulin Human Regular (Insulin Regular, Human 100 Units/Ml 3 Ml Vial) 5 unit IV ONETIME ONE Stop: 02/16/21 14:22 Last Admin: 02/16/21 14:59 Dose: 5 unit Documented by: Insulin Human Regular (Insulin Regular, Human 100 Units/Ml 3 Ml Vial) 10 unit IV STAT STA Stop: 02/16/21 17:11 Last Admin: 02/16/21 17:19 Dose: 10 units Documented by: Insulin Human Regular (Insulin Regular, Human 100 Units/Ml 3 Ml Vial) 10 unit IV ONETIME ONE Stop: 02/16/21 18:13 Last Admin: 02/16/21 18:14 Dose: 10 units Documented by: Lisinopril (Lisinopril 5 Mg Tab) 2.5 mg PO DAILY [facility] Metolazone (Metolazone 2.5 Mg Tab) 5 mg PO ONETIME ONE Stop: 02/27/21 06:01 Last Admin: 02/27/21 06:07 Dose: 5 mg Documented by: Nitroglycerin (Nitroglycerin 0.4 Mg Tab.Sl) 0.4 mg SL ONETIME ONE Stop: 02/18/21 15:41 Last Admin: 02/18/21 15:47 Dose: 0.4 mg Documented by: Nystatin (Nystatin Topical Powder 30 Gm Bottle) 0 gm TOP Q8H [facility] Last Admin: 02/19/21 03:43 Dose: 1 applic Documented by: Nystatin (Nystatin Topical Powder 30 Gm Bottle) 0 gm TOP Q8HR [facility] Last Admin: 02/28/21 22:12 Dose: 1 applic Documented by: Potassium Chloride (Potassium Chloride 10 Meq Tab.Er) 40 meq PO ONETIME ONE Stop: 02/17/21 03:20 Last Admin: 02/17/21 07:20 Dose: Not Given Documented by: Potassium Chloride (Potassium Chloride 10 Meq Tab.Er) 40 meq PO ONETIME ONE Stop: 02/17/21 07:52 Last Admin: 02/17/21 08:43 Dose: 40 meq Documented by: Potassium Chloride (Potassium Chloride 10% 20 Meq/15 Ml Soln 15 Ml Ud Cup) 40 meq PO ONETIME ONE Stop: 02/17/21 17:01 Last Admin: 02/17/21 17:41 Dose: 40 meq Documented by: Potassium Chloride (Potassium Chloride 10 Meq Tab.Er) 20 meq PO DAILY [facility] Potassium Chloride (Potassium Chloride 10 Meq Tab.Er) 40 meq PO WITHBREAKFAST [facility] Stop: 03/11/21 08:16 Last Admin: 03/11/21 09:15 Dose: 40 meq Documented by: Potassium Chloride (Potassium Chloride 10 Meq Tab.Er) 20 meq PO BID [facility] Stop: 03/08/21 21:01 Last Admin: 03/08/21 20:53 Dose: 20 meq Documented by: Sodium Bicarbonate (Sodium Bicarbonate 8.4% 50 Meq/50 Ml Syringe) 50 meq IVPUSH ONETIME ONE Stop: 02/16/21 15:04 Last Admin: 02/16/21 15:08 Dose: 50 meq Documented by: Sodium Bicarbonate (Sodium Bicarbonate 8.4% 50 Meq/50 Ml Syringe) 100 meq IVPUSH ONETIME ONE Stop: 02/16/21 17:24 Last Admin: 02/16/21 17:49 Dose: 100 meq Documented by: Zolpidem Tartrate (Zolpidem 5 Mg Tab) 5 mg PO ONETIME ONE Stop: 02/18/21 22:06 Last Admin: 02/18/21 22:17 Dose: 5 mg Documented by: Zolpidem Tartrate (Zolpidem 5 Mg Tab) 5 mg PO ONETIME ONE Stop: 02/20/21 00:18 Last Admin: 02/20/21 00:38 Dose: 5 mg Documented by: - Exam Urinary Catheter Total Time: 2Days 13Hours General: Alert, Oriented Neck: Supple Lungs: Clear to Auscultation, Normal Respiratory Effort Cardiovascular: Regular Rate, Regular Rhythm GI/Abdominal Exam: Normal Bowel Sounds, Soft, Non-Tender Extremities: No Pedal Edema Skin: Warm Neurological: No New Focal Deficit Psy/Mental Status: Alert, Normal Affect, Normal Mood - Patient Data Lab Results Last 24 hrs: Laboratory Results - last 24 hr 03/15/21 03/15/21 03/16/21 Range/Units 17:05 20:26 07:34 POC Glucose 112 H 216 H 217 H (70-99) mg/dL 03/16/21 Range/Units 11:43 POC Glucose 306 H (70-99) mg/dL Result Diagrams: 03/13/21 08:36 03/13/21 08:36 Sepsis Event Note - Evaluation Sepsis Screening Result: No Definite Risk - Focused Exam Vital Signs: Vital Signs Temp Pulse Pulse Resp BP BP BP 03/16/21 12:00 98.5 F 78 20 123/79 03/16/21 08:31 75 143/77 H 03/16/21 07:50 96.5 F L 75 18 143/77 H Pulse Ox 03/16/21 12:00 03/16/21 08:31 03/16/21 07:50 96 - Problem List & Annotations (1) Acute coronary syndrome with high troponin SNOMED Code(s): 809506263, 026871721 Code(s): I24.9 - ACUTE ISCHEMIC HEART DISEASE, UNSPECIFIED Status: Acute Current Visit: Yes (2) Congestive heart failure SNOMED Code(s): 41254817 Code(s): I50.9 - HEART FAILURE, UNSPECIFIED Status: Acute Priority: Medium Current Visit: Yes Onset Date: ~03/05/21 Qualifiers: Heart failure type: combined systolic and diastolic Heart failure chronicity: acute on chronic Qualified Code(s): I50.43 - Acute on chronic combined systolic (congestive) and diastolic (congestive) heart failure (3) DKA (diabetic ketoacidosis) SNOMED Code(s): 307580949, 063142061 Code(s): E11.10 - TYPE 2 DIABETES MELLITUS WITH KETOACIDOSIS WITHOUT COMA Status: Chronic Current Visit: Yes Qualifiers: Diabetes mellitus type: type 2 Diabetes mellitus complication detail: without coma Qualified Code(s): E11.10 - Type 2 diabetes mellitus with ketoacidosis without coma (4) Metabolic acidosis due to diabetes mellitus SNOMED Code(s): 518961974 Code(s): E11.69 - TYPE 2 DIABETES MELLITUS WITH OTHER SPECIFIED COMPLICATION; E87.2 - ACIDOSIS Status: Acute Current Visit: No - Problem List Review Problem List Initiated/Reviewed/Updated: Yes - Assessment Assessment:: Assessment: Generalized weakness: continue with PT/OT d/w family- family will be able to provide 23/11 caregiver plan to discharge home with home care and family type 2 diabetes mellitus, insulin-dependent continue with lantus, humolog Demand Ischemia. Resolved. Pt has a h/o CAD and is on Asa, Plavix controlled continue with coreg, zetia, lisinopril Chronic congestive heart failure- resolved cont lisinopril, coreg, lasix Will need out pt echo after discharge to further characterize Hypokalemia resolved On oral replacement. recheck bmp periodically after discharge H/o cerebrovascular accident: treat with asa BP control. VTE prophylaxis: SQ Lovenox Discharge planning : home with home care with family - Plan Plan:: .
[2021-03-16] MEDS: Acetaminophen 500 MG Tab PO PRN (16:01)
[2021-03-16] MEDS: traZODone 50 MG Tab PO SCH (20:42)
[2021-03-16] MEDS: Zolpidem 5 MG Tab PO PRN (20:42)
[2021-03-16] MEDS: Ezetimibe 10 MG Tab PO SCH (20:42)
[2021-03-16] MEDS: Insulin Glarg,Human.Rec.Analog 100 Unit/ML SUBCUT SCH (20:43)
[2021-03-17] MEDS: Pantoprazole 40 MG Tab.CR PO SCH (05:15)
[2021-03-17] MEDS: Furosemide 40 MG Tab PO SCH (09:32)
[2021-03-17] MEDS: Carvedilol 3.125 MG Tab PO SCH (09:33)
[2021-03-17] MEDS: Lisinopril 10 MG Tab PO SCH (09:34)
[2021-03-17] MEDS: Aspirin 81 MG Tab.EC PO SCH ×2 (09:34→09:35)
[2021-03-17] MEDS: Insulin Lispro 100 Units/ML 3 ML Vial SUBCUT SCH ×4 (09:37→12:54)
[2021-03-17] MEDS: Clopidogrel 75 MG Tab PO SCH (09:38)
[2021-03-17] MEDS: Enoxaparin 40 MG/0.4 ML Syringe SUBCUT SCH (09:39)
--- NOTE | 2021-03-17 11:25 | PCM.DCSUM1 ---
Discharge Summary - Hospital Course Free Text/Narrative:: admitted with weakness, dka discharge home with home care skilled nurse for diabetes management, patient education pt for [facility] ot for home safety eval and adls training Generalized weakness: continue with PT/OT d/w family- family will be able to provide / caregiver type 2 diabetes mellitus, insulin-dependent continue with lantus, humolog type II non st mi with Demand Ischemia. Resolved. Pt has a h/o CAD and is on Asa, Plavix controlled continue with coreg, zetia, lisinopril acute on Chronic congestive heart failure resolved cont lisinopril, coreg, lasix Will need out pt echo after discharge to further characterize Hypokalemia resolved On oral replacement. recheck bmp periodically after discharge H/o cerebrovascular accident: treat with asa BP control. Diagnosis: Stroke: No - Discharge Data Discharge Date: 03/17/21 Discharge Disposition: Home, W Home Health Agency 06 Condition: Good - Referral to Home Health Date of Face to Face Encounter: 03/17/21 Reason for Homebound Status: weakness Primary Care Physician: PCP None Skilled Need: skilled nurse for diabetes management, patient education. [facility] eval and adls training - Discharge Diagnosis/Problem(s) (1) Acute coronary syndrome with high troponin SNOMED Code(s): 451292141, 901887986 ICD Code: I24.9 - ACUTE ISCHEMIC HEART DISEASE, UNSPECIFIED Status: Acute Current Visit: Yes (2) Congestive heart failure SNOMED Code(s): 52866608 ICD Code: I50.9 - HEART FAILURE, UNSPECIFIED Status: Acute Priority: Medium Current Visit: Yes Onset Date: ~03/05/21 Qualifiers: Heart failure type: combined systolic and diastolic Heart failure chronicity: acute on chronic Qualified Code(s): I50.43 - Acute on chronic combined systolic (congestive) and diastolic (congestive) heart failure (3) DKA (diabetic ketoacidosis) SNOMED Code(s): 924049783, 841040747 ICD Code: E11.10 - TYPE 2 DIABETES MELLITUS WITH KETOACIDOSIS WITHOUT COMA Status: Chronic Current Visit: Yes Qualifiers: Diabetes mellitus type: type 2 Diabetes mellitus complication detail: without coma Qualified Code(s): E11.10 - Type 2 diabetes mellitus with ketoacidosis without coma (4) Metabolic acidosis due to diabetes mellitus SNOMED Code(s): 781697822 ICD Code: E11.69 - TYPE 2 DIABETES MELLITUS WITH OTHER SPECIFIED COMPLICATION; E87.2 - ACIDOSIS Status: Acute Current Visit: No - Patient Summary/Data Consults: Consultations 02/21/21 09:19 Consult to Physical Therapy [PT Evaluation and Treatment] [CONS] Routine 02/21/21 09:20 Consult to Occupational Therapy [OT Evaluation and Treatment] [CONS] Routine - Patient Instructions Diet: Heart Healthy Diet Activity: As Tolerated - Discharge Plan *PRESCRIPTION DRUG MONITORING PROGRAM REVIEWED*: Not Applicable *COPY OF PRESCRIPTION DRUG MONITORING REPORT IN PATIENT STEFANO: Not Applicable Prescriptions/Med Rec: carvediloL [Coreg] 6.25 mg PO BIDMEALS #60 tablet Ferrous Sulfate 325 mg PO DAILY #15 tablet Insulin Lispro [HumaLOG] 2 unit SUBCUT TIDMEALS #1 vial Insulin Glarg,Human.Rec.Analog [Lantus] 20 unit SUBCUT BEDTIME #1 vial Furosemide [Lasix] 40 mg PO DAILY #30 tablet Pantoprazole [ProTONIX] 40 mg PO ACBREAKFAST #30 tab.cr traZODone 50 mg PO BEDTIME #30 tablet Ezetimibe [Zetia] 10 mg PO BEDTIME #30 tablet Home Medications: Home Meds Lisinopril 10 mg PO DAILY 05/25/15 [History] Clopidogrel Bisulfate [Plavix] 75 mg PO DAILY 09/12/20 [History] Aspirin [Aspirin EC] 81 mg PO DAILY 10/10/20 [History] Nitroglycerin [Nitrostat] 0.4 mg SL ASDIRECTED PRN 10/10/20 [History] Zolpidem [Ambien] 5 mg PO BEDTIME PRN 02/18/21 [History] Ezetimibe [Zetia] 10 mg PO BEDTIME #30 tablet 03/17/21 [Rx] Ferrous Sulfate 325 mg PO DAILY #15 tablet 03/17/21 [Rx] Furosemide [Lasix] 40 mg PO DAILY #30 tablet 03/17/21 [Rx] Insulin Glarg,Human.Rec.Analog [Lantus] 20 unit SUBCUT BEDTIME #1 vial 03/17/21 [Rx] Insulin Lispro [HumaLOG] 2 unit SUBCUT TIDMEALS #1 vial 03/17/21 [Rx] Pantoprazole [ProTONIX] 40 mg PO ACBREAKFAST #30 tab.cr 03/17/21 [Rx] carvediloL [Coreg] 6.25 mg PO BIDMEALS #60 tablet 03/17/21 [Rx] traZODone 50 mg PO BEDTIME #30 tablet 03/17/21 [Rx] Oxygen Therapy Mode: Room Air Patient Handouts: Heart Failure, Diagnosis, [id number] Referrals: Metaferia,Davi, [facility] [Ordering Only Provider] - - Discharge Summary/Plan Comment DC Time >30 min.: Yes Total # of Minutes for Discharge Time: 35 min arranging and writing referral for home care - General Info Date of Service: 03/17/21 Admission Dx/Problem (Free Text: She has no new complaints this morning. She remains afebrile. she is eating well, Functional Status: Reports: Pain Controlled, Tolerating Diet. Denies: Ambulating - Review of Systems General: Reports: Weakness Pulmonary: Denies: Shortness of Breath Cardiovascular: Denies: Chest Pain, Edema Gastrointestinal: Denies: Abdominal Pain Neurological: Denies: Confusion - Patient Data Vitals - Most Recent: Last Vital Signs Temp 96.0 F L 03/17/21 07:56 Pulse 75 03/17/21 09:33 Resp 18 03/17/21 07:56 BP 135/77 03/17/21 09:34 Pulse Ox 95 03/17/21 07:56 Weight - Most Recent: 178 lb 1.2 oz I&O - Last 24 hours: Intake & Output 03/16/21 03/17/21 03/17/21 22:59 06:59 14:59 Intake Total 520 240 Balance 520 240 Lab Results - Last 24 hrs: Laboratory Results - last 24 hr 03/16/21 03/16/21 03/16/21 Range/Units 11:43 16:49 20:38 POC Glucose 306 H 194 H 254 H (70-99) mg/dL 03/17/21 Range/Units 07:42 POC Glucose 124 H (70-99) mg/dL Med Orders - Current: Current Medications Acetaminophen (Acetaminophen 500 Mg Tab) 500 mg PO Q4H PRN PRN Reason: Pain/Fever Last Admin: 03/16/21 16:01 Dose: 500 mg Documented by: Aspirin (Aspirin 81 Mg Tab.Ec) 81 mg PO DAILY ERIN Last Admin: 03/17/21 09:35 Dose: 81 mg Documented by: Carvedilol (Carvedilol 3.125 Mg Tab) 6.25 mg PO BIDMEALS [facility] Last Admin: 03/17/21 09:33 Dose: 6.25 mg Documented by: Clopidogrel Bisulfate (Clopidogrel 75 Mg Tab) 75 mg PO DAILY [facility] Last Admin: 03/17/21 09:38 Dose: 75 mg Documented by: Dextrose/Water (50% Dextrose In Water 50 Ml Syringe) 25 ml IVPUSH Q15M PRN PRN Reason: Hypoglycemia Last Admin: 02/28/21 08:35 Dose: 25 ml Documented by: Dextrose/Water (50% Dextrose In Water 50 Ml Syringe) 50 ml IVPUSH Q15M PRN PRN Reason: Hypoglycemia Ezetimibe (Ezetimibe 10 Mg Tab) 10 mg PO BEDTIME [facility] Last Admin: 03/16/21 20:42 Dose: 10 mg Documented by: Enoxaparin Sodium (Enoxaparin 40 Mg/0.4 Ml Syringe) 40 mg SUBCUT DAILY [facility] Last Admin: 03/17/21 09:39 Dose: 40 mg Documented by: Ferrous Sulfate (Ferrous Sulfate 325 Mg Tab) 325 mg PO Q48H [facility] Last Admin: 03/16/21 08:31 Dose: 325 mg Documented by: Furosemide (Furosemide 40 Mg Tab) 40 mg PO DAILY [facility] Last Admin: 03/17/21 09:32 Dose: 40 mg Documented by: Glucagon (Glucagon,Human Recombinant 1 Mg Vial) 1 mg IM Q15M PRN PRN Reason: Hypoglycemia Insulin Glargine (Insulin Glarg,Human.Rec.Analog 100 Unit/Ml) 20 unit SUBCUT BEDTIME [facility] Last Admin: 03/16/21 20:43 Dose: 20 units Documented by: Insulin Human Lispro (Insulin Lispro 100 Units/Ml 3 Ml Vial) 0 unit SUBCUT WITHMEALSANDBED [facility]; Protocol Last Admin: 03/17/21 09:38 Dose: Not Given Documented by: Insulin Human Lispro (Insulin Lispro 100 Units/Ml 3 Ml Vial) 2 unit SUBCUT TIDMEALS [facility] Last Admin: 03/17/21 09:37 Dose: 2 units Documented by: Lisinopril (Lisinopril 10 Mg Tab) 10 mg PO DAILY [facility] Last Admin: 03/17/21 09:34 Dose: 10 mg Documented by: Melatonin (Melatonin 3 Mg Tab) 6 mg PO BEDTIME PRN PRN Reason: Sleep Last Admin: 03/11/21 21:01 Dose: 6 mg Documented by: Nystatin (Nystatin Topical Powder 30 Gm Bottle) 1 gm TOP Q8H PRN PRN Reason: Rash Pantoprazole Sodium (Pantoprazole 40 Mg Tab.Cr) 40 mg PO ACBREAKFAST [facility] Last Admin: 03/17/21 05:15 Dose: 40 mg Documented by: Trazodone HCl (Trazodone 50 Mg Tab) 50 mg PO BEDTIME [facility] Last Admin: 03/16/21 20:42 Dose: 50 mg Documented by: Zolpidem Tartrate (Zolpidem 5 Mg Tab) 5 mg PO BEDTIME PRN PRN Reason: Sleep Last Admin: 03/16/21 20:42 Dose: 5 mg Documented by: Discontinued Medications COVID-19 Vaccine mRNA LNP-S (PFR) () (Covid-19 Vacc, Mrna(Pfizer)/Pf 30 Mc g/0.3 Ml Vial) 30 mcg IM .ONCE ONE Stop: 02/25/21 16:21 Last Admin: 02/25/21 17:11 Dose: Not Given Documented by: Carvedilol (Carvedilol 6.25 Mg Tab) 6.25 mg PO ONETIME ONE Stop: 02/19/21 12:28 Last Admin: 02/19/21 12:36 Dose: Not Given Documented by: Carvedilol (Carvedilol 3.125 Mg Tab) 3.125 mg PO BIDMEALS [facility] Last Admin: 02/28/21 09:52 Dose: 3.125 mg Documented by: Clopidogrel Bisulfate (Clopidogrel 75 Mg Tab) 225 mg PO ONETIME STA Stop: 02/17/21 11:11 Last Admin: 02/17/21 11:24 Dose: 225 mg Documented by: Dextrose/Water (50% Dextrose In Water 50 Ml Syringe) 50 ml IVPUSH Q15M PRN PRN Reason: Hypoglycemia Dextrose/Water (50% Dextrose In Water 50 Ml Syringe) 50 ml IVPUSH Q15M PRN PRN Reason: Hypoglycemia Dextrose/Water (50% Dextrose In Water 50 Ml Syringe) 50 ml IVPUSH Q15M PRN PRN Reason: Hypoglycemia Dextrose/Water (50% Dextrose In Water 50 Ml Syringe) Confirm Administered Dose 50 ml .ROUTE .STK-MED ONE Stop: 02/20/21 07:41 Last Admin: 02/20/21 08:14 Dose: Not Given Documented by: Dextrose/Water (50% Dextrose In Water 50 Ml Syringe) 50 ml IVPUSH ONETIME ONE Stop: 02/26/21 07:46 Last Admin: 02/26/21 07:45 Dose: 50 ml Documented by: Furosemide (Furosemide 20 Mg/2 Ml Vial) 20 mg IVPUSH ONETIME ONE Stop: 02/16/21 15:51 Last Admin: 02/16/21 15:54 Dose: 20 mg Documented by: Furosemide (Furosemide 40 Mg/4 Ml Vial) 40 mg IVPUSH ONETIME ONE Stop: 02/23/21 16:01 Last Admin: 02/23/21 16:00 Dose: 40 mg Documented by: Furosemide (Furosemide 20 Mg Tab) 20 mg PO DAILY [facility] Last Admin: 03/03/21 10:17 Dose: 20 mg Documented by: Furosemide (Furosemide 20 Mg Tab) 20 mg PO BIDDIURETIC [facility] Last Admin: 03/04/21 08:31 Dose: 20 mg Documented by: Furosemide (Furosemide 20 Mg/2 Ml Vial) 20 mg IVPUSH Q8H [facility] Last Admin: 03/07/21 05:58 Dose: 20 mg Documented by: Furosemide (Furosemide 40 Mg Tab) 40 mg PO DAILY [facility] Glucagon (Glucagon,Human Recombinant 1 Mg Vial) 1 mg IM Q15M PRN PRN Reason: Hypoglycemia Glucagon (Glucagon,Human Recombinant 1 Mg Vial) 1 mg IM Q15M PRN PRN Reason: Hypoglycemia Heparin Sodium (Porcine) (Heparin Sodium 5,000 Units/Ml Vial) 4,700 units IV ONETIME ONE Stop: 02/17/21 08:31 Last Admin: 02/17/21 08:34 Dose: 4,700 units Documented by: Heparin Sodium (Porcine) (Heparin Sodium 5,000 Units/Ml Vial) 1,000 units IVPUSH ONETIME ONE Stop: 02/17/21 22:56 Last Admin: 02/17/21 23:14 Dose: 1,000 units Documented by: Heparin Sodium (Porcine) (Heparin Sodium 5,000 Units/Ml Vial) 2,000 units IVPUSH .BOLUS ONE Stop: 02/18/21 09:18 Last Admin: 02/18/21 09:35 Dose: 2,000 units Documented by: Heparin Sodium (Porcine) (Heparin Sodium 5,000 Units/Ml Vial) 2,000 units IVPUSH ONETIME ONE Stop: 02/18/21 22:43 Last Admin: 02/18/21 22:55 Dose: 2,000 units Documented by: Sodium Chloride (Normal Saline) 1,000 mls @ 999 mls/hr IV .BOLUS ONE Stop: 02/16/21 15:00 Last Admin: 02/16/21 17:42 Dose: 999 mls/hr Documented by: Albumin Human (Buminate 5%) 250 mls @ 250 mls/hr IV ASDIRECTED ERIN Last Admin: 02/16/21 15:01 Dose: 250 mls/hr Documented by: Sodium Bicarbonate 100 meq/ (Dextrose/Water) 1,100 mls @ 100 mls/hr IV ONETIME ONE Stop: 02/17/21 02:02 Last Admin: 02/16/21 15:18 Dose: 100 mls/hr Documented by: Insulin Regular in 0.9 % NACL (Myxredlin In Ns 100 Unit/100 Ml) 100 unit in 100 mls @ 7.82 mls/hr IV TITRATE ERIN; Protocol Sodium Bicarbonate 100 meq/ (Dextrose/Water) 1,100 mls @ 999 mls/hr IV ONETIME ONE Stop: 02/16/21 18:27 Last Admin: 02/16/21 22:50 Dose: Not Given Documented by: Sodium Chloride (Normal Saline) 1,000 mls @ 250 mls/hr IV ASDIRECTED [facility] Insulin Regular in 0.9 % NACL (Myxredlin In Ns 100 Unit/100 Ml) 100 unit in 100 mls @ 7.82 mls/hr IV TITRATE ERIN; Protocol Last Titration: 02/17/21 02:36 Dose: 0 units/kg/hr, 0 mls/hr Documented by: Levofloxacin/Dextrose 500 mg/ (Premix) 100 mls @ 100 mls/hr IV Q24H ERIN Last Admin: 02/16/21 20:54 Dose: 100 mls/hr Documented by: Sodium Chloride (Normal Saline) 1,000 mls @ 1,000 mls/hr IV ASDIRECTED ERIN Stop: 02/16/21 19:59 Last Admin: 02/16/21 19:02 Dose: 1,000 mls/hr Documented by: Potassium Chloride/Sodium Chloride (Normal Saline With 40 Meq Kcl) 1,000 mls @ 250 mls/hr IV ASDIRECTED [facility] Last Admin: 02/17/21 01:48 Dose: 250 mls/hr Documented by: Sodium Bicarbonate 100 meq/ (Dextrose/Water) 1,100 mls @ 150 mls/hr IV ONETIME ONE Stop: 02/17/21 10:39 Last Infusion: 02/17/21 07:55 Dose: 50 mls/hr Documented by: Heparin Sodium/Sodium Chloride (Heparin 25,000 Units In 1/2 Ns 500 Ml) 25,000 units in 500 mls @ 18.768 mls/hr IV TITRATE ERIN; Protocol Last Admin: 02/19/21 03:31 Dose: 22 units/kg/hr, 34.408 mls/hr Documented by: Levofloxacin/Dextrose 500 mg/ (Premix) 100 mls @ 100 mls/hr IV Q48H [facility] Last Admin: 02/18/21 17:21 Dose: 100 mls/hr Documented by: Lactated Ringer's (Ringers, Lactated) 1,000 mls @ 125 mls/hr IV ASDIRECTED [facility] Last Admin: 02/19/21 05:45 Dose: 125 mls/hr Documented by: Levofloxacin/Dextrose 750 mg/ (Premix) 150 mls @ 100 mls/hr IV Q24H [facility] Stop: 02/21/21 11:01 Last Admin: 02/21/21 11:15 Dose: 100 mls/hr Documented by: Potassium Chloride 20 meq/ (Premix) 100 mls @ 50 mls/hr IV ONETIME ONE Stop: 02/20/21 09:22 Last Admin: 02/20/21 08:00 Dose: 50 mls/hr Documented by: Calcium Gluconate 1 gm/ Sodium (Chloride) 110 mls @ 110 mls/hr IV ONETIME ONE Stop: 02/20/21 08:29 Last Admin: 02/20/21 08:14 Dose: 110 mls/hr Documented by: Albumin Human 50 gm/ Premix 200 mls @ 100 mls/hr IV NOW ONE Stop: 02/23/21 13:21 Last Admin: 02/23/21 12:12 Dose: 100 mls/hr Documented by: Insulin Glargine (Insulin Glarg,Human.Rec.Analog 100 Unit/Ml) 35 unit SUBCUT ONETIME ONE Stop: 02/17/21 04:13 Last Admin: 02/17/21 04:28 Dose: 35 units Documented by: Insulin Glargine (Insulin Glarg,Human.Rec.Analog 100 Unit/Ml) 20 unit SUBCUT ONETIME ONE Stop: 02/19/21 09:23 Last Admin: 02/19/21 09:57 Dose: 20 units Documented by: Insulin Glargine (Insulin Glarg,Human.Rec.Analog 100 Unit/Ml) 40 unit SUBCUT BEDTIME [facility] Last Admin: 02/19/21 21:47 Dose: 40 units Documented by: Insulin Glargine (Insulin Glarg,Human.Rec.Analog 100 Unit/Ml) 20 unit SUBCUT BEDTIME [facility] Last Admin: 03/05/21 20:55 Dose: 20 units Documented by: Insulin Glargine (Insulin Glarg,Human.Rec.Analog 100 Unit/Ml) 24 unit SUBCUT BEDTIME [facility] Last Admin: 03/06/21 20:47 Dose: 24 units Documented by: Insulin Human Lispro (Insulin Lispro 100 Units/Ml 3 Ml Vial) 5 unit SUBCUT ONETIME ONE Stop: 02/17/21 04:15 Last Admin: 02/17/21 04:29 Dose: 5 units Documented by: Insulin Human Lispro (Insulin Lispro 100 Units/Ml 3 Ml Vial) 0 unit SUBCUT WITHMEALSANDBED [facility]; Protocol Last Admin: 02/18/21 09:04 Dose: Not Given Documented by: Insulin Human Lispro (Insulin Lispro 100 Units/Ml 3 Ml Vial) 14 unit SUBCUT ONETIME ONE Stop: 02/19/21 12:27 Last Admin: 02/19/21 12:36 Dose: Not Given Documented by: Insulin Human Lispro (Insulin Lispro 100 Units/Ml 3 Ml Vial) 12 unit SUBCUT ONETIME ONE Stop: 02/19/21 12:27 Last Admin: 02/19/21 12:41 Dose: 12 units Documented by: Insulin Human Regular (Insulin Regular, Human 100 Units/Ml 3 Ml Vial) 5 unit IV ONETIME ONE Stop: 02/16/21 14:22 Last Admin: 02/16/21 14:59 Dose: 5 unit Documented by: Insulin Human Regular (Insulin Regular, Human 100 Units/Ml 3 Ml Vial) 10 unit IV STAT STA Stop: 02/16/21 17:11 Last Admin: 02/16/21 17:19 Dose: 10 units Documented by: Insulin Human Regular (Insulin Regular, Human 100 Units/Ml 3 Ml Vial) 10 unit IV ONETIME ONE Stop: 02/16/21 18:13 Last Admin: 02/16/21 18:14 Dose: 10 units Documented by: Lisinopril (Lisinopril 5 Mg Tab) 2.5 mg PO DAILY [facility] Metolazone (Metolazone 2.5 Mg Tab) 5 mg PO ONETIME ONE Stop: 02/27/21 06:01 Last Admin: 02/27/21 06:07 Dose: 5 mg Documented by: Nitroglycerin (Nitroglycerin 0.4 Mg Tab.Sl) 0.4 mg SL ONETIME ONE Stop: 02/18/21 15:41 Last Admin: 02/18/21 15:47 Dose: 0.4 mg Documented by: Nystatin (Nystatin Topical Powder 30 Gm Bottle) 0 gm TOP Q8H [facility] Last Admin: 02/19/21 03:43 Dose: 1 applic Documented by: Nystatin (Nystatin Topical Powder 30 Gm Bottle) 0 gm TOP Q8HR [facility] Last Admin: 02/28/21 22:12 Dose: 1 applic Documented by: Potassium Chloride (Potassium Chloride 10 Meq Tab.Er) 40 meq PO ONETIME ONE Stop: 02/17/21 03:20 Last Admin: 02/17/21 07:20 Dose: Not Given Documented by: Potassium Chloride (Potassium Chloride 10 Meq Tab.Er) 40 meq PO ONETIME ONE Stop: 02/17/21 07:52 Last Admin: 02/17/21 08:43 Dose: 40 meq Documented by: Potassium Chloride (Potassium Chloride 10% 20 Meq/15 Ml Soln 15 Ml Ud Cup) 40 meq PO ONETIME ONE Stop: 02/17/21 17:01 Last Admin: 02/17/21 17:41 Dose: 40 meq Documented by: Potassium Chloride (Potassium Chloride 10 Meq Tab.Er) 20 meq PO DAILY [facility] Potassium Chloride (Potassium Chloride 10 Meq Tab.Er) 40 meq PO WITHBREAKFAST [facility] Stop: 03/11/21 08:16 Last Admin: 03/11/21 09:15 Dose: 40 meq Documented by: Potassium Chloride (Potassium Chloride 10 Meq Tab.Er) 20 meq PO BID ERIN Stop: 03/08/21 21:01 Last Admin: 03/08/21 20:53 Dose: 20 meq Documented by: Sodium Bicarbonate (Sodium Bicarbonate 8.4% 50 Meq/50 Ml Syringe) 50 meq IVPUSH ONETIME ONE Stop: 02/16/21 15:04 Last Admin: 02/16/21 15:08 Dose: 50 meq Documented by: Sodium Bicarbonate (Sodium Bicarbonate 8.4% 50 Meq/50 Ml Syringe) 100 meq IVPUSH ONETIME ONE Stop: 02/16/21 17:24 Last Admin: 02/16/21 17:49 Dose: 100 meq Documented by: Zolpidem Tartrate (Zolpidem 5 Mg Tab) 5 mg PO ONETIME ONE Stop: 02/18/21 22:06 Last Admin: 02/18/21 22:17 Dose: 5 mg Documented by: Zolpidem Tartrate (Zolpidem 5 Mg Tab) 5 mg PO ONETIME ONE Stop: 02/20/21 00:18 Last Admin: 02/20/21 00:38 Dose: 5 mg Documented by: - Exam Quality Assessment: Denies: Supplemental Oxygen General: Reports: Alert, Oriented Lungs: Reports: Clear to Auscultation, Normal Respiratory Effort Cardiovascular: Reports: Regular Rate, Regular Rhythm Extremities: No Pedal Edema Skin: Reports: Warm, Dry Psy/Mental Status: Reports: Alert, Normal Affect, Normal Mood
[2021-03-17 11:45] VITALS: BP 127/55; PULSE 73
== END 2021-03-17 15:00 | disposition home health service (06) | DRG 280 ==
LOC: DL.ED 13:44 → DL.MS 16:55
PROVIDERS: ADMIT Internal Medicine; ATTEND Hospitalist
DX: I13.0 Hypertensive heart and chronic kidney disease with heart failure and stage 1 through stage 4 chronic kidney disease, or unspecified chronic kidney disease (principal); E11.10 Type 2 diabetes mellitus with ketoacidosis without coma; R77.8 Other specified abnormalities of plasma proteins; I21.A1 Myocardial infarction type 2; I50.43 Acute on chronic combined systolic (congestive) and diastolic (congestive) heart failure; G93.41 Metabolic encephalopathy; N17.9 Acute kidney failure, unspecified; I11.0 Hypertensive heart disease with heart failure; I24.9 Acute ischemic heart disease, unspecified; R53.1 Weakness; I25.10 Atherosclerotic heart disease of native coronary artery without angina pectoris; E87.6 Hypokalemia; Z79.02 Long term (current) use of antithrombotics/antiplatelets; I50.9 Heart failure, unspecified; J44.9 Chronic obstructive pulmonary disease, unspecified; R32 Unspecified urinary incontinence; G43.909 Migraine, unspecified, not intractable, without status migrainosus; L89.312 Pressure ulcer of right buttock, stage 2; Z20.822 Contact with and (suspected) exposure to COVID-19; Z86.19 Personal history of other infectious and parasitic diseases; Z86.73 Personal history of transient ischemic attack (TIA), and cerebral infarction without residual deficits; Z79.4 Long term (current) use of insulin; Z79.899 Other long term (current) drug therapy; Z79.82 Long term (current) use of aspirin; Z88.8 Allergy status to other drugs, medicaments and biological substances; Z88.0 Allergy status to penicillin; I25.2 Old myocardial infarction; Z95.1 Presence of aortocoronary bypass graft; Z90.49 Acquired absence of other specified parts of digestive tract; Z90.710 Acquired absence of both cervix and uterus
CPT/HCPCS: 36415; 70450; 71045; 80053; 81001; 82009; 82550; 82947 ×3; 83605; 83735; 83880; 84484; 85025; 86140; 87086; 87088; 87186 ×2; 93005; J1815; J1940; J7060; P9045; U0002; 36410; 51702; 80048; 82803; 83036; 83540; 83550; 84100; 85730; 87493; 91300; 99231; 99232; 99239; 99291; 99292; A9270-GY; J0610; J1644; J1650; J1956; J3480; J7030; J7120; P9047

== ENCOUNTER 2021-05-04 17:17 | Inpatient (IN) | payer MEDICARE, BC ==
[2021-05-04] MEDS ORDERED: Sodium Chloride 0.9% 10 ML Syringe FLUSH PRN (17:22)
[2021-05-04] MEDS: Norepinephrine 4 MG in Dextrose 5% in Water 246 ML IV SCH ×2 (18:00)
[2021-05-04 18:28] LABS: ANION GAP 22.8 mEq/L (7-13); CHLORIDE,CL 94 mmol/L (98-107); SODIUM,NA 131 mmol/L (136-145)
[2021-05-04] MEDS: Sodium Chloride 0.9% 10 ML Syringe FLUSH PRN (18:45)
--- NOTE | 2021-05-04 19:05 | CR ---
PROCEDURE INFORMATION: Exam: XR Chest Exam date and time: 05/04/2021 6:24 PM Age: 71 years old Clinical indication: Other: Sepsis TECHNIQUE: Imaging protocol: XR of the chest. Views: 1 view. Total images: 1 COMPARISON: CR Chest 1V Frontal 02/16/2021 3:06 PM FINDINGS: Lungs: Mild central vascular congestion. Mild alveolar opacities in the peripheral right mid lung and right base concerning for early/mild changes of multifocal pneumonia. Pleural spaces: No pleural effusion. No pneumothorax. Heart/Mediastinum: Heart size upper limits of normal. Prior median sternotomy. No tracheal/mediastinal shift. Vasculature: The aorta demonstrates mild ectasia/tortuosity and mild calcific atherosclerosis. Bones/joints: No acute osseous abnormalities are identified. Osteopenia. IMPRESSION: Faint alveolar opacities in the peripheral right mid lung and right base concerning for early/mild changes of multifocal pneumonia.
[2021-05-04 19:21] LABS: BASE EXCESS VENOUS -5.3 mmol/l ((-2)-(+3)); BICARBONATE,VENOUS 19 mmol/l (19-25); O2 DELIVERY DEVICE ROOM AIR; O2 SATURATION VENOUS 94.3 % (60-80); PCO2 VENOUS 35 mmHg (41-51); PH,VENOUS 7.35 (7.31-7.41); PO2 VENOUS 67 mmHg (35-42)
[2021-05-04 19:26] LABS: O2 FLOW RATE 0
[2021-05-04 20:00] LABS: AMPHETAMINES,URINE NEGATIVE (NEGATIVE); BARBITURATES,URINE NEGATIVE (NEGATIVE); BENZODIAZEPINE,URINE NEGATIVE (NEGATIVE); MDMA (ECSTASY), URINE NEGATIVE (NEGATIVE); METHADONE,URINE NEGATIVE (NEGATIVE); METHAMPHETAMINES,URINE NEGATIVE (NEGATIVE); OPIATES,URINE NEGATIVE (NEGATIVE); OXYCODONE,URINE NEGATIVE (NEGATIVE); PHENCYCLIDINE,URINE NEGATIVE (NEGATIVE); TCA,URINE NEGATIVE (NEGATIVE)
[2021-05-04] MEDS ORDERED: Ciprofloxacin in D5W 400 MG in Premix Bag 1 BAG IV ONE ×2 (20:22)
[2021-05-04] MEDS ORDERED: Lidocaine 2% 100 MG/5 ML Syringe IOSS ONE (22:11)
--- NOTE | 2021-05-04 22:51 | PCM.HP ---
H&P History of Present Illness - General Date of Service: 05/04/21 Admit Problem/Dx: Admission Diagnosis/Problem Admission Diagnosis/Problem Diabetic ketoacidosis Source of Information: EMS, Old Records History Limitations: Reports: Altered Mental Status - History of Present Illness Initial Comments - Free Text/Narative: 71-year-old female, , with significant past medical history of uncontrolled diabetes (last A1c greater than 12), complicated with diabetic neuropathy and DKA in the past, heart failure with preserved ejection fraction and grade 1 diastolic function, hypertension, CAD and PAD (PCI done on 03/02/20toSVG/RCA anastomosis with 1 drug-eluting stent, and angioplasty of the left tibial peroneal trunk and peroneal, DCB ( Drug Coated Bal[place]) angioplasty of left SFAon 03/04/20)who was admitted to [facility] with altered mental status and severe DKA from 09/29-10/04/20. Today ( 05/04/21) she was brought to ED via [facility] via stretcher with c/o not feeling well in general, and very weak. Pt is lethargic and confused, not answering questions appropriately. Denies fever, or pain. Admits to cough and her blood sugar was 628, she was hypotensive and started her on Levophed in ER and insulin drip. U/A showed positive nitrite and WBC elevated, likely sepsis secondary to UTI. Patient also had chest x-ray done and the impression was: Faint alveolar opacities in the peripheral right midlung and right base concerning for early/mild changes of multifocal pneumonia. Onset of Symptoms: Reports: Gradual Duration of Symptoms: Reports: Getting Worse Associated Symptoms: Reports: Confusion - Related Data Allergies/Adverse Reactions: Allergies Allergy/AdvReac Type Severity Reaction Status Date / Time atorvastatin Allergy Rash Verified 05/04/21 18:27 Penicillins Allergy Rash Verified 05/04/21 18:27 simvastatin Allergy Rash Verified 05/04/21 18:27 Home Medications: Home Meds Lisinopril 10 mg PO DAILY 05/25/15 [History] Clopidogrel Bisulfate [Plavix] 75 mg PO DAILY 09/12/20 [History] Aspirin [Aspirin EC] 81 mg PO DAILY 10/10/20 [History] Nitroglycerin [Nitrostat] 0.4 mg SL ASDIRECTED PRN 10/10/20 [History] Zolpidem [Ambien] 5 mg PO BEDTIME PRN 02/18/21 [History] Ezetimibe [Zetia] 10 mg PO BEDTIME #30 tablet 03/17/21 [Rx] Ferrous Sulfate 325 mg PO DAILY #15 tablet 03/17/21 [Rx] Furosemide [Lasix] 40 mg PO DAILY #30 tablet 03/17/21 [Rx] Pantoprazole [ProTONIX] 40 mg PO ACBREAKFAST #30 tab.cr 03/17/21 [Rx] carvediloL [Coreg] 6.25 mg PO BIDMEALS #60 tablet 03/17/21 [Rx] Ascorbic Acid [Vitamin C] 250 mg PO DAILY 04/09/21 [History] Diclofenac Sodium 2 gm TP QID 04/09/21 [History] Potassium Chloride 10 meq PO WITHBREAKFAST 04/09/21 [History] Insulin Glarg,Human.Rec.Analog [Lantus] 15 unit SUBCUT BEDTIME 28 Days ml 04/10/21 [Rx] Insulin Lispro [HumaLOG] 3 unit SUBCUT TIDMEALS 28 Days vial 04/10/21 [Rx] Past Medical History HEENT History: Reports: None Cardiovascular History: Reports: Heart Failure, Hypertension, CT, Other (See Below) Respiratory History: Reports: COPD Gastrointestinal History: Reports: Cholelithiasis, GERD Genitourinary History: Reports: Urinary Incontinence MANAGER OF MEDICAL History: Reports: Musculoskeletal History: Reports: None Neurological History: Reports: CVA, Migraines Psychiatric History: Reports: Anxiety Endocrine/Metabolic History: Reports: Diabetes, Type II, Other (See Below) Hematologic History: Reports: None Immunologic History: Reports: None Oncologic (Cancer) History: Reports: None Dermatologic History: Reports: None - Infectious Disease History Infectious Disease History: Reports: Hepatitis B, MRSA, Shingles - Past Surgical History Head Surgeries/Procedures: Reports: None HEENT Surgical History: Reports: None Cardiovascular Surgical History: Reports: Coronary Artery Bypass GI Surgical History: Reports: Appendectomy, Cholecystectomy, Hernia, Inguinal Female Surgical History: Reports: Section, Hysterectomy Endocrine Surgical History: Reports: None Neurological Surgical History: Reports: None Social & Family History - Family History Family Medical History: No Pertinent Family History - Tobacco Use Tobacco Use Status *Q: Unknown Ever Used Tobacco - Caffeine Use Caffeine Use: Reports: Coffee - Recreational Drug Use Recreational Drug Use: No - Living Situation & Occupation Living situation: Reports: Alone Occupation: Retired H&P Review of Systems - Review of Systems: Review Of Systems: See Below General: Reports: Weakness, Decreased Appetite HEENT: Denies: Sinus Congestion, Sore Throat, Visual Changes Pulmonary: Denies: Shortness of Breath, Cough, Sputum Cardiovascular: Reports: Edema. Denies: Chest Pain, Dyspnea on Exertion Gastrointestinal: Denies: Abdominal Pain, Diarrhea, Nausea, Vomiting Genitourinary: Denies: Dysuria, Frequency, Burning Musculoskeletal: Denies: Neck Pain, Joint Swelling, Muscle Stiffness Skin: Denies: Jaundice, Dryness, Bruising, Pruritis, Rash Psychiatric: Denies: Anxiety, Agitation Neurological: Reports: Confusion, Weakness. Denies: Tremors Exam - Exam Exam: See Below - Vital Signs Vital Signs: Last Vital Signs Temp 36.4 C 05/04/21 17:18 Pulse 73 05/04/21 17:18 Resp 20 05/04/21 17:18 BP 52/12 L 05/04/21 17:18 Pulse Ox 96 05/04/21 17:18 Weight: 67.387 kg - Exam Quality Assessment: Urinary Catheter, DVT Prophylaxis. No: Supplemental Oxygen General: Alert, Oriented (has mild confusionj), Mild Distress HEENT: Conjunctiva Clear, EOMI, Mucosa Moist & [place] Neck: Supple. No: JVD, Thyromegaly Lungs: Clear to Auscultation, Normal Respiratory Effort, Crackles. No: Wheezing Cardiovascular: Systolic Murmur. No: Regular Rate, Regular Rhythm, Normal S1, Normal S2 GI/Abdominal Exam: Normal Bowel Sounds, Non-Tender, No Distention. No: Guarding, Rigid (Female) Exam: Deferred Rectal (Female) Exam: Deferred Back Exam: Normal Inspection Extremities: Normal Inspection, Pedal Edema (trace) Skin: Warm, Dry, Intact Neurological: Cranial Nerves Intact, Reflexes Equal Bilateral Neuro Extensive - Mental Status: Alert, Oriented x3, Normal Mood/Affect, Normal Cognition, Memory Intact Neuro Extensive - Motor, Sensory, Reflexes: CN II-XII Intact Psychiatric: Alert, Normal Affect, Normal Mood - Patient Data Lab Results Last 24 hrs: Laboratory Results - last 24 hr 05/04/21 05/04/21 05/04/21 Range/Units 17:45 17:45 17:45 WBC 5.2 (5.0-10.0) 10^3/uL RBC 4.66 (4.2-5.4) 10^6/uL Hgb 11.3 L (12.0-16.0) g/dL Hct 34.5 L (37.0-47.0) % MCV 74.0 L (80-100) fL MCH 24.2 L (27.0-34.0) pg MCHC 32.8 L (33.0-35.0) g/dL Plt Count 164 (150-450) 10^3/uL Neut % (Auto) 58.4 (42.2-75.2) % Lymph % (Auto) 31.5 (20.5-50.1) % [place] % (Auto) 9.9 H (2-8) % Eos % (Auto) 0.0 L (1.0-3.0) % Baso % (Auto) 0.2 (0.0-1.0) % VBG pH (7.31-7.41) VBG pCO2 (41-51) mmHg VBG pO2 (35-42) mmHg VBG HCO3 (19-25) mmol/l VBG O2 Saturation (60-80) % VBG Base Excess ((-2)-(+3)) mmol/l O2 Delivery Device Oxygen Flow Rate Sodium 131 L (136-145) mmol/L Potassium 3.8 (3.5-5.1) mmol/L Chloride 94 L (98-107) mmol/L Carbon Dioxide 18 L (21-32) mmol/L Anion Gap 22.8 H (7-13) mEq/L BUN 61 H D (7-18) mg/dL Creatinine 2.16 H D (0.55-1.02) mg/dL Est Cr Clr Drug Dosing TNP Estimated GFR (MDRD) 23 BUN/Creatinine Ratio 28.2 (No establ ref range) Glucose 621 H* (70-99) mg/dL POC Glucose (70-99) mg/dL Lactic Acid 2.8 H* (0.4-2.0) mmol/L Calcium 8.3 L (8.5-10.1) mg/dL Phosphorus 3.1 (2.6-4.7) mg/dL Magnesium 2.4 (1.8-2.4) mg/dL Total Bilirubin 0.5 (0.2-1.0) mg/dL AST 9 L (15-37) U/L ALT 13 L (14-59) U/L Alkaline Phosphatase 123 H (46-116) U/L Troponin I High Sens 68 H* (<=51) pg/mL B-Natriuretic Peptide 1080 H (0-100) pg/ml Total Protein 6.0 L (6.4-8.2) g/dL Albumin 2.7 L (3.4-5.0) g/dL Globulin 3.3 Albumin/Globulin Ratio 0.82 Urine Color (YELLOW) Urine Appearance (CLEAR) Urine pH (5.0-9.0) Ur Specific Jacob (1.005-1.030) Urine Protein (NEGATIVE) Urine Glucose (UA) (NEGATIVE) Urine Ketones (NEGATIVE) Urine Occult Blood (NEGATIVE) Urine Nitrite (NEGATIVE) Urine Bilirubin (NEGATIVE) Urine Urobilinogen (0.2-1.0) mg/dL Ur Leukocyte Esterase (NEGATIVE) Urine RBC (0-5) /HPF Urine WBC (0-5/HPF) /HPF Ur Epithelial Cells (NOT SEEN) /HPF Urine Bacteria (0-FEW/HPF) /HPF Urine Opiates Screen (NEGATIVE) Ur Oxycodone Screen (NEGATIVE) Urine Methadone Screen (NEGATIVE) Ur Barbiturates Screen (NEGATIVE) U Tricyclic Antidepress (NEGATIVE) Ur Phencyclidine Scrn (NEGATIVE) Ur Amphetamine Screen (NEGATIVE) U Methamphetamines Scrn (NEGATIVE) Urine MDMA Screen (NEGATIVE) U Benzodiazepines Scrn (NEGATIVE) Urine Cocaine Screen (NEGATIVE) U Marijuana (THC) Screen (NEGATIVE) Ethyl Alcohol 3 (0) mg/dL Ketones Moderate-40 mg/dl SARS-CoV-2 RNA (AYUSH) (NEGATIVE) 05/04/21 05/04/21 05/04/21 Range/Units 18:50 19:20 19:32 WBC (5.0-10.0) 10^3/uL RBC (4.2-5.4) 10^6/uL Hgb (12.0-16.0) g/dL Hct (37.0-47.0) % MCV (80-100) fL MCH (27.0-34.0) pg MCHC (33.0-35.0) g/dL Plt Count (150-450) 10^3/uL Neut % (Auto) (42.2-75.2) % Lymph % (Auto) (20.5-50.1) % [place] % (Auto) (2-8) % Eos % (Auto) (1.0-3.0) % Baso % (Auto) (0.0-1.0) % VBG pH 7.35 (7.31-7.41) VBG pCO2 35 L (41-51) mmHg VBG pO2 67 H (35-42) mmHg VBG HCO3 19 (19-25) mmol/l VBG O2 Saturation 94.3 H (60-80) % VBG Base Excess -5.3 L ((-2)-(+3)) mmol/l O2 Delivery Device Room air Oxygen Flow Rate 0 Sodium (136-145) mmol/L Potassium (3.5-5.1) mmol/L Chloride (98-107) mmol/L Carbon Dioxide (21-32) mmol/L Anion Gap (7-13) mEq/L BUN (7-18) mg/dL Creatinine (0.55-1.02) mg/dL Est Cr Clr Drug Dosing Estimated GFR (MDRD) BUN/Creatinine Ratio (No establ ref range) Glucose (70-99) mg/dL POC Glucose 518 H* (70-99) mg/dL Lactic Acid (0.4-2.0) mmol/L Calcium (8.5-10.1) mg/dL Phosphorus (2.6-4.7) mg/dL Magnesium (1.8-2.4) mg/dL Total Bilirubin (0.2-1.0) mg/dL AST (15-37) U/L ALT (14-59) U/L Alkaline Phosphatase (46-116) U/L Troponin I High Sens (<=51) pg/mL B-Natriuretic Peptide (0-100) pg/ml Total Protein (6.4-8.2) g/dL Albumin (3.4-5.0) g/dL Globulin Albumin/Globulin Ratio Urine Color (YELLOW) Urine Appearance (CLEAR) Urine pH (5.0-9.0) Ur Specific Jacob (1.005-1.030) Urine Protein (NEGATIVE) Urine Glucose (UA) (NEGATIVE) Urine Ketones (NEGATIVE) Urine Occult Blood (NEGATIVE) Urine Nitrite (NEGATIVE) Urine Bilirubin (NEGATIVE) Urine Urobilinogen (0.2-1.0) mg/dL Ur Leukocyte Esterase (NEGATIVE) Urine RBC (0-5) /HPF Urine WBC (0-5/HPF) /HPF Ur Epithelial Cells (NOT SEEN) /HPF Urine Bacteria (0-FEW/HPF) /HPF Urine Opiates Screen (NEGATIVE) Ur Oxycodone Screen (NEGATIVE) Urine Methadone Screen (NEGATIVE) Ur Barbiturates Screen (NEGATIVE) U Tricyclic Antidepress (NEGATIVE) Ur Phencyclidine Scrn (NEGATIVE) Ur Amphetamine Screen (NEGATIVE) U Methamphetamines Scrn (NEGATIVE) Urine MDMA Screen (NEGATIVE) U Benzodiazepines Scrn (NEGATIVE) Urine Cocaine Screen (NEGATIVE) U Marijuana (THC) Screen (NEGATIVE) Ethyl Alcohol (0) mg/dL Ketones SARS-CoV-2 RNA (AYUSH) Negative (NEGATIVE) 05/04/21 05/04/21 05/04/21 Range/Units 19:54 19:54 20:28 WBC (5.0-10.0) 10^3/uL RBC (4.2-5.4) 10^6/uL Hgb (12.0-16.0) g/dL Hct (37.0-47.0) % MCV (80-100) fL MCH (27.0-34.0) pg MCHC (33.0-35.0) g/dL Plt Count (150-450) 10^3/uL Neut % (Auto) (42.2-75.2) % Lymph % (Auto) (20.5-50.1) % [place] % (Auto) (2-8) % Eos % (Auto) (1.0-3.0) % Baso % (Auto) (0.0-1.0) % VBG pH (7.31-7.41) VBG pCO2 (41-51) mmHg VBG pO2 (35-42) mmHg VBG HCO3 (19-25) mmol/l VBG O2 Saturation (60-80) % VBG Base Excess ((-2)-(+3)) mmol/l O2 Delivery Device Oxygen Flow Rate Sodium (136-145) mmol/L Potassium (3.5-5.1) mmol/L Chloride (98-107) mmol/L Carbon Dioxide (21-32) mmol/L Anion Gap (7-13) mEq/L BUN (7-18) mg/dL Creatinine (0.55-1.02) mg/dL Est Cr Clr Drug Dosing Estimated GFR (MDRD) BUN/Creatinine Ratio (No establ ref range) Glucose (70-99) mg/dL POC Glucose 430 H* (70-99) mg/dL Lactic Acid (0.4-2.0) mmol/L Calcium (8.5-10.1) mg/dL Phosphorus (2.6-4.7) mg/dL Magnesium (1.8-2.4) mg/dL Total Bilirubin (0.2-1.0) mg/dL AST (15-37) U/L ALT (14-59) U/L Alkaline Phosphatase (46-116) U/L Troponin I High Sens (<=51) pg/mL B-Natriuretic Peptide (0-100) pg/ml Total Protein (6.4-8.2) g/dL Albumin (3.4-5.0) g/dL Globulin Albumin/Globulin Ratio Urine Color Yellow (YELLOW) Urine Appearance Slightly cloudy (CLEAR) Urine pH 5.5 (5.0-9.0) Ur Specific Jacob 1.020 (1.005-1.030) Urine Protein Trace H (NEGATIVE) Urine Glucose (UA) >=1000 H (NEGATIVE) Urine Ketones Trace H (NEGATIVE) Urine Occult Blood Negative (NEGATIVE) Urine Nitrite Positive H (NEGATIVE) Urine Bilirubin Small H (NEGATIVE) Urine Urobilinogen 1.0 (0.2-1.0) mg/dL Ur Leukocyte Esterase Small H (NEGATIVE) Urine RBC Not seen (0-5) /HPF Urine WBC 75-100 H (0-5/HPF) /HPF Ur Epithelial Cells Not seen (NOT SEEN) /HPF Urine Bacteria Many H (0-FEW/HPF) /HPF Urine Opiates Screen Negative (NEGATIVE) Ur Oxycodone Screen Negative (NEGATIVE) Urine Methadone Screen Negative (NEGATIVE) Ur Barbiturates Screen Negative (NEGATIVE) U Tricyclic Antidepress Negative (NEGATIVE) Ur Phencyclidine Scrn Negative (NEGATIVE) Ur Amphetamine Screen Negative (NEGATIVE) U Methamphetamines Scrn Negative (NEGATIVE) Urine MDMA Screen Negative (NEGATIVE) U Benzodiazepines Scrn Negative (NEGATIVE) Urine Cocaine Screen Negative (NEGATIVE) U Marijuana (THC) Screen Negative (NEGATIVE) Ethyl Alcohol (0) mg/dL Ketones SARS-CoV-2 RNA (AYUSH) (NEGATIVE) 05/04/21 05/04/21 Range/Units 21:55 22:00 WBC (5.0-10.0) 10^3/uL RBC (4.2-5.4) 10^6/uL Hgb (12.0-16.0) g/dL Hct (37.0-47.0) % MCV (80-100) fL MCH (27.0-34.0) pg MCHC (33.0-35.0) g/dL Plt Count (150-450) 10^3/uL Neut % (Auto) (42.2-75.2) % Lymph % (Auto) (20.5-50.1) % [place] % (Auto) (2-8) % Eos % (Auto) (1.0-3.0) % Baso % (Auto) (0.0-1.0) % VBG pH (7.31-7.41) VBG pCO2 (41-51) mmHg VBG pO2 (35-42) mmHg VBG HCO3 (19-25) mmol/l VBG O2 Saturation (60-80) % VBG Base Excess ((-2)-(+3)) mmol/l O2 Delivery Device Oxygen Flow Rate Sodium (136-145) mmol/L Potassium (3.5-5.1) mmol/L Chloride (98-107) mmol/L Carbon Dioxide (21-32) mmol/L Anion Gap (7-13) mEq/L BUN (7-18) mg/dL Creatinine (0.55-1.02) mg/dL Est Cr Clr Drug Dosing Estimated GFR (MDRD) BUN/Creatinine Ratio (No establ ref range) Glucose (70-99) mg/dL POC Glucose 359 H (70-99) mg/dL Lactic Acid 2.4 H* (0.4-2.0) mmol/L Calcium (8.5-10.1) mg/dL Phosphorus (2.6-4.7) mg/dL Magnesium (1.8-2.4) mg/dL Total Bilirubin (0.2-1.0) mg/dL AST (15-37) U/L ALT (14-59) U/L Alkaline Phosphatase (46-116) U/L Troponin I High Sens (<=51) pg/mL B-Natriuretic Peptide (0-100) pg/ml Total Protein (6.4-8.2) g/dL Albumin (3.4-5.0) g/dL Globulin Albumin/Globulin Ratio Urine Color (YELLOW) Urine Appearance (CLEAR) Urine pH (5.0-9.0) Ur Specific [place] (1.005-1.030) Urine Protein (NEGATIVE) Urine Glucose (UA) (NEGATIVE) Urine Ketones (NEGATIVE) Urine Occult Blood (NEGATIVE) Urine Nitrite (NEGATIVE) Urine Bilirubin (NEGATIVE) Urine Urobilinogen (0.2-1.0) mg/dL Ur Leukocyte Esterase (NEGATIVE) Urine RBC (0-5) /HPF Urine WBC (0-5/HPF) /HPF Ur Epithelial Cells (NOT SEEN) /HPF Urine Bacteria (0-FEW/HPF) /HPF Urine Opiates Screen (NEGATIVE) Ur Oxycodone Screen (NEGATIVE) Urine Methadone Screen (NEGATIVE) Ur Barbiturates Screen (NEGATIVE) U Tricyclic Antidepress (NEGATIVE) Ur Phencyclidine Scrn (NEGATIVE) Ur Amphetamine Screen (NEGATIVE) U Methamphetamines Scrn (NEGATIVE) Urine MDMA Screen (NEGATIVE) U Benzodiazepines Scrn (NEGATIVE) Urine Cocaine Screen (NEGATIVE) U Marijuana (THC) Screen (NEGATIVE) Ethyl Alcohol (0) mg/dL Ketones SARS-CoV-2 RNA (AYUSH) (NEGATIVE) Result Diagrams: 05/04/21 17:45 05/04/21 23:58 Lorenzo Results Last 24 hrs: Microbiology 05/04/21 22:00 Anaerobic Blood Culture - Final Blood - Arm, Right 05/04/21 18:25 Influenza Type A Antigen Screen - Final Nasal, Unspecified NEGATIVE INFLUENZA A VIRUS AG REFERENCE RANGE: NEGATIVE Influenza Type B Antigen Screen - Final NEGATIVE INFLUENZA B VIRUS AG REFERENCE RANGE: NEGATIVE 05/04/21 17:45 Anaerobic Blood Culture - Final Blood - Arm, Right - Problem List (1) DKA, type 2 SNOMED Code(s): 231844565, 030013325 ICD Code: E11.10 - TYPE 2 DIABETES MELLITUS WITH KETOACIDOSIS WITHOUT COMA Status: Acute Current Visit: No Qualifiers: Diabetes mellitus complication detail: without coma Qualified Code(s): E11.10 - Type 2 diabetes mellitus with ketoacidosis without coma (2) Elevated troponin SNOMED Code(s): 123968869, 030080687, 416361693 ICD Code: R77.8 - OTHER SPECIFIED ABNORMALITIES OF PLASMA PROTEINS Status: Acute Current Visit: No (3) Metabolic acidosis due to diabetes mellitus SNOMED Code(s): 494949392 ICD Code: E11.69 - TYPE 2 DIABETES MELLITUS WITH OTHER SPECIFIED COMPLICATION; E87.2 - ACIDOSIS Status: Acute Current Visit: No (4) Sepsis SNOMED Code(s): 91148032 ICD Code: A41.9 - SEPSIS, UNSPECIFIED ORGANISM Status: Acute Current Visit: No Qualifiers: Sepsis type: sepsis due to unspecified organism Sepsis acute organ dysfunction status: with acute organ dysfunction Severe sepsis acute organ dysfunction type: unspecified Severe sepsis shock status: with septic shock Qualified Code(s): A41.9 - Sepsis, unspecified organism; R65.21 - Severe sepsis with septic shock Problem List Initiated/Reviewed/Updated: Yes Orders Last 24hrs: Active Orders 24 hr Category Date Time Status Admission Diagnosis [ADT] Stat ADT 05/04/21 21:52 Ordered Admission Status [Patient Status] [ADT] Routine ADT 05/04/21 21:52 Active Blood Glucose Check, Bedside [RC] ONETIME Care 05/04/21 17:18 Active Cardiac Monitoring [RC] . DIRECTED Care 05/04/21 21:52 Active EKG 12 Lead [EKG Documentation Completion] [RC] STAT Care 05/04/21 17:20 Active Rogers Catheter Insertion [Insert Urinary Catheter] [OM. Care 05/04/21 17:21 Ordered PC] Stat Peripheral IV Care [RC] . DIRECTED Care 05/04/21 17:21 Active Peripheral IV Care [RC] . DIRECTED Care 05/04/21 17:23 Active Urinary Catheter Assessment [RC] ASDIRECTED Care 05/04/21 17:21 Active CULTURE BLOOD [BC] Stat Lab 05/04/21 17:45 Results CULTURE BLOOD [BC] Stat Lab 05/04/21 22:00 Results CULTURE URINE [RM] Stat Lab 05/04/21 19:54 Received Insulin Regular in 0.9 % NACL [Myxredlin in NS 100 UNIT Med 05/04/21 20:15 Ac tive /100 ML] 100 unit in 100 ml IV TITRATE Norepinephrine [Levophed] 4 mg Med 05/04/21 17:45 Active Dextrose 5% in Water 246 ml IV TITRATE Sodium Chloride 0.9% [Saline Flush] Med 05/04/21 17:21 Active 10 ml FLUSH ASDIRECTED PRN Sodium Chloride 0.9% [Saline Flush] Med 05/04/21 17:22 Active 10 ml FLUSH ASDIRECTED PRN Blood Culture x2 Reflex Set [OM.PC] Stat Ot 05/04/21 17:18 Ordered Isolation [COMM] Routine Oth 05/04/21 17:21 Active Peripheral IV Insertion Adult [OM.PC] Stat Oth 05/04/21 17:20 Ordered Peripheral IV Insertion Adult [OM.PC] Stat Oth 05/04/21 17:22 Ordered Medication Orders Norepinephrine Bitartrate 4 mg (/ Dextrose/Water) 250 mls @ 22.5 mls/hr IV TITRATE ERIN; Protocol Last Titration: 05/04/21 18:30 Dose: 4 mcg/min, 15 mls/hr Documented by: Admin: 05/04/21 18:00 Dose: 6 mcg/min, 22.5 mls/hr Documented by: VICKEY Insulin Regular in 0.9 % NACL (Myxredlin In Ns 100 Unit/100 Ml) 100 unit in 100 mls @ 6.739 mls/hr IV TITRATE ERIN; Protocol Last Admin: 05/04/21 20:43 Dose: 0.1 units/kg/hr, 6.739 mls/hr Documented by: TOMY Freemanigned by: LINA Sodium Chloride (Sodium Chloride 0.9% 10 Ml Syringe) 10 ml FLUSH ASDIRECTED PRN PRN Reason: Keep Vein Open Last Admin: 05/04/21 18:45 Dose: 10 ml Documented by: VICKEY Sodium Chloride (Sodium Chloride 0.9% 10 Ml Syringe) 10 ml FLUSH ASDIRECTED PRN PRN Reason: Keep Vein Open Last Admin: 05/04/21 18:45 Dose: 10 ml Documented by: VICKEY Assessment/Plan Comment:: Ms. Martinez, is a 71-year-old female with history of diabetes which poorly controlled, came with diabetic ketoacidosis, he is on insulin drip also on septic shock secondary to urinary tract infection and multifocal pneumonia. Impression and plan: 1. Severe hypotension this is most likely secondary to septic shock/severe sepsis secondary to urinary tract infection as well as multifocal pneumonia. The patient is on Levophed, will titrate to keep the blood pressure at greater than 110 mmHg and map at or greater than 60. We will follow the blood culture and also will continue her with vancomycin and zosyn. 2. Diabetic ketoacidosis: Patient has diabetes type 2 for long time which is poorly controlled came with a very elevated blood sugar and now she is on insulin drip and will continue to titrate and once blood sugar is around 120 then will switch to Humalog insulin with fingerstick monitoring and sliding scale coverage. 3. Metabolic acidosis this is secondary to diabetic ketoacidosis and for that we do not need any bicarbonate infusion with the correction of the blood sugar the gap will be automatically corrected. We will start her on gentle hydration with normal saline at 50 mL/h. 4. Acute kidney injury: This is secondary to severe hypotension, dehydration, decreased renal perfusion leading to ischemic injury versus ATN. We will start her on gentle hydration with normal saline at 50 mL/h. 5. Diabetes 2: The patient has no history of diabetes which is poorly controlled once her hyperglycemia corrected and ketosis corrected then will start her on insulin which is her home regimen with a fingerstick sliding scale coverage GI prophylaxis: We will start her on Protonix 40 mg p.o. daily. DVT prophylaxis: We will start her on enoxaparin 40 mg subq daily. CODE STATUS; the CODE STATUS was discussed with the patient and she is full code. This dictation is done via [employer] dictation system.
[2021-05-05 00:12] LABS: ANION GAP 19.5 mEq/L (7-13)
[2021-05-05] MEDS ORDERED: Terbutaline 1 MG/ML SDV SUBCUT ONE (00:48)
[2021-05-05] MEDS ORDERED: Docusate Sodium 100 MG Cap PO PRN (00:50)
[2021-05-05] MEDS ORDERED: 50% Dextrose in Water 50 ML Syringe IVPUSH PRN ×3 (00:56→21:57)
[2021-05-05] MEDS ORDERED: Glucagon,Human Recombinant 1 MG Vial IM PRN ×3 (00:56→21:57)
[2021-05-05] MEDS ORDERED: VANCOmycin 1.5 GM/300 ML 1.5 GM in Premix Bag 1 BAG IV ONE (01:30)
[2021-05-05] MEDS: Piperacillin/Tazobactam 3.375 GM in Sodium Chloride 0.9% 100 ML IV SCH ×4 (01:31→19:18)
[2021-05-05] MEDS ORDERED: Sodium Chloride 0.9% 0 ML ONE (01:57)
[2021-05-05] MEDS: Norepinephrine 4 MG in Dextrose 5% in Water 246 ML IV SCH ×2 (05:10)
[2021-05-05 07:00] LABS: ANION GAP 20.4 mEq/L (7-13)
[2021-05-05] MEDS ORDERED: Sodium Chloride 0.9% 1,000 ML IV ONE (11:17)
[2021-05-05] MEDS: Insulin Lispro 100 Units/ML 3 ML Vial SUBCUT SCH ×4 (11:34→20:38)
[2021-05-05] MEDS ORDERED: Insulin Lispro 100 Units/ML 3 ML Vial SUBCUT ONE (11:37)
[2021-05-05] MEDS: Enoxaparin 40 MG/0.4 ML Syringe SUBCUT SCH (11:59)
[2021-05-05] MEDS ORDERED: Sodium Chloride 0.9% 1,000 ML IV SCH ×3 (13:45→22:45)
[2021-05-05 16:50] LABS: ANION GAP 17.9 mEq/L (7-13)
--- NOTE | 2021-05-05 17:17 | PCM.PN ---
- General Info Date of Service: 05/05/21 - Patient Data Vitals - Most Recent: Last Vital Signs Temp 98.6 F 05/05/21 16:00 Pulse 76 05/05/21 12:00 Resp 16 05/05/21 16:00 BP 98/59 L 05/05/21 16:00 Pulse Ox 97 05/05/21 16:00 Weight - Most Recent: 152 lb I&O - Last 24 Hours: Intake & Output 05/05/21 05/05/21 05/05/21 06:59 14:59 22:59 Intake Total 980 1000 Output Total 400 500 Balance -951 [id number] Lab Results Last 24 Hours: Laboratory Results - last 24 hr 05/04/21 05/04/21 05/04/21 Range/Units 17:45 17:45 17:45 WBC 5.2 (5.0-10.0) 10^3/uL RBC 4.66 (4.2-5.4) 10^6/uL Hgb 11.3 L (12.0-16.0) g/dL Hct 34.5 L (37.0-47.0) % MCV 74.0 L (80-100) fL MCH 24.2 L (27.0-34.0) pg MCHC 32.8 L (33.0-35.0) g/dL Plt Count 164 (150-450) 10^3/uL Neut % (Auto) 58.4 (42.2-75.2) % Lymph % (Auto) 31.5 (20.5-50.1) % [place] % (Auto) 9.9 H (2-8) % Eos % (Auto) 0.0 L (1.0-3.0) % Baso % (Auto) 0.2 (0.0-1.0) % VBG pH (7.31-7.41) VBG pCO2 (41-51) mmHg VBG pO2 (35-42) mmHg VBG HCO3 (19-25) mmol/l VBG O2 Saturation (60-80) % VBG Base Excess ((-2)-(+3)) mmol/l O2 Delivery Device Oxygen Flow Rate Sodium 131 L (136-145) mmol/L Potassium 3.8 (3.5-5.1) mmol/L Chloride 94 L (98-107) mmol/L Carbon Dioxide 18 L (21-32) mmol/L Anion Gap 22.8 H (7-13) mEq/L BUN 61 H D (7-18) mg/dL Creatinine 2.16 H D (0.55-1.02) mg/dL Est Cr Clr Drug Dosing TNP Estimated GFR (MDRD) 23 BUN/Creatinine Ratio 28.2 (No establ ref range) Glucose 621 H* (70-99) mg/dL POC Glucose (70-99) mg/dL Lactic Acid 2.8 H* (0.4-2.0) mmol/L Calcium 8.3 L (8.5-10.1) mg/dL Phosphorus 3.1 (2.6-4.7) mg/dL Magnesium 2.4 (1.8-2.4) mg/dL Total Bilirubin 0.5 (0.2-1.0) mg/dL AST 9 L (15-37) U/L ALT 13 L (14-59) U/L Alkaline Phosphatase 123 H (46-116) U/L Troponin I High Sens 68 H* (<=51) pg/mL B-Natriuretic Peptide 1080 H (0-100) pg/ml Total Protein 6.0 L (6.4-8.2) g/dL Albumin 2.7 L (3.4-5.0) g/dL Globulin 3.3 Albumin/Globulin Ratio 0.82 Urine Color (YELLOW) Urine Appearance (CLEAR) Urine pH (5.0-9.0) Ur Specific [place] (1.005-1.030) Urine Protein (NEGATIVE) Urine Glucose (UA) (NEGATIVE) Urine Ketones (NEGATIVE) Urine Occult Blood (NEGATIVE) Urine Nitrite (NEGATIVE) Urine Bilirubin (NEGATIVE) Urine Urobilinogen (0.2-1.0) mg/dL Ur Leukocyte Esterase (NEGATIVE) Urine RBC (0-5) /HPF Urine WBC (0-5/HPF) /HPF Ur Epithelial Cells (NOT SEEN) /HPF Urine Bacteria (0-FEW/HPF) /HPF Urine Opiates Screen (NEGATIVE) Ur Oxycodone Screen (NEGATIVE) Urine Methadone Screen (NEGATIVE) Ur Barbiturates Screen (NEGATIVE) U Tricyclic Antidepress (NEGATIVE) Ur Phencyclidine Scrn (NEGATIVE) Ur Amphetamine Screen (NEGATIVE) U Methamphetamines Scrn (NEGATIVE) Urine MDMA Screen (NEGATIVE) U Benzodiazepines Scrn (NEGATIVE) Urine Cocaine Screen (NEGATIVE) U Marijuana (THC) Screen (NEGATIVE) Ethyl Alcohol 3 (0) mg/dL Ketones Moderate-40 mg/dl SARS-CoV-2 RNA (AYUSH) (NEGATIVE) 05/04/21 05/04/21 05/04/21 Range/Units 18:50 19:20 19:32 WBC (5.0-10.0) 10^3/uL RBC (4.2-5.4) 10^6/uL Hgb (12.0-16.0) g/dL Hct (37.0-47.0) % MCV (80-100) fL MCH (27.0-34.0) pg MCHC (33.0-35.0) g/dL Plt Count (150-450) 10^3/uL Neut % (Auto) (42.2-75.2) % Lymph % (Auto) (20.5-50.1) % [place] % (Auto) (2-8) % Eos % (Auto) (1.0-3.0) % Baso % (Auto) (0.0-1.0) % VBG pH 7.35 (7.31-7.41) VBG pCO2 35 L (41-51) mmHg VBG pO2 67 H (35-42) mmHg VBG HCO3 19 (19-25) mmol/l VBG O2 Saturation 94.3 H (60-80) % VBG Base Excess -5.3 L ((-2)-(+3)) mmol/l O2 Delivery Device Room air Oxygen Flow Rate 0 Sodium (136-145) mmol/L Potassium (3.5-5.1) mmol/L Chloride (98-107) mmol/L Carbon Dioxide (21-32) mmol/L Anion Gap (7-13) mEq/L BUN (7-18) mg/dL Creatinine (0.55-1.02) mg/dL Est Cr Clr Drug Dosing Estimated GFR (MDRD) BUN/Creatinine Ratio (No establ ref range) Glucose (70-99) mg/dL POC Glucose 518 H* (70-99) mg/dL Lactic Acid (0.4-2.0) mmol/L Calcium (8.5-10.1) mg/dL Phosphorus (2.6-4.7) mg/dL Magnesium (1.8-2.4) mg/dL Total Bilirubin (0.2-1.0) mg/dL AST (15-37) U/L ALT (14-59) U/L Alkaline Phosphatase (46-116) U/L Troponin I High Sens (<=51) pg/mL B-Natriuretic Peptide (0-100) pg/ml Total Protein (6.4-8.2) g/dL Albumin (3.4-5.0) g/dL Globulin Albumin/Globulin Ratio Urine Color (YELLOW) Urine Appearance (CLEAR) Urine pH (5.0-9.0) Ur Specific [place] (1.005-1.030) Urine Protein (NEGATIVE) Urine Glucose (UA) (NEGATIVE) Urine Ketones (NEGATIVE) Urine Occult Blood (NEGATIVE) Urine Nitrite (NEGATIVE) Urine Bilirubin (NEGATIVE) Urine Urobilinogen (0.2-1.0) mg/dL Ur Leukocyte Esterase (NEGATIVE) Urine RBC (0-5) /HPF Urine WBC (0-5/HPF) /HPF Ur Epithelial Cells (NOT SEEN) /HPF Urine Bacteria (0-FEW/HPF) /HPF Urine Opiates Screen (NEGATIVE) Ur Oxycodone Screen (NEGATIVE) Urine Methadone Screen (NEGATIVE) Ur Barbiturates Screen (NEGATIVE) U Tricyclic Antidepress (NEGATIVE) Ur Phencyclidine Scrn (NEGATIVE) Ur Amphetamine Screen (NEGATIVE) U Methamphetamines Scrn (NEGATIVE) Urine MDMA Screen (NEGATIVE) U Benzodiazepines Scrn (NEGATIVE) Urine Cocaine Screen (NEGATIVE) U Marijuana (THC) Screen (NEGATIVE) Ethyl Alcohol (0) mg/dL Ketones SARS-CoV-2 RNA (AYUSH) Negative (NEGATIVE) 05/04/21 05/04/21 05/04/21 Range/Units 19:54 19:54 20:28 WBC (5.0-10.0) 10^3/uL RBC (4.2-5.4) 10^6/uL Hgb (12.0-16.0) g/dL Hct (37.0-47.0) % MCV (80-100) fL MCH (27.0-34.0) pg MCHC (33.0-35.0) g/dL Plt Count (150-450) 10^3/uL Neut % (Auto) (42.2-75.2) % Lymph % (Auto) (20.5-50.1) % [place] % (Auto) (2-8) % Eos % (Auto) (1.0-3.0) % Baso % (Auto) (0.0-1.0) % VBG pH (7.31-7.41) VBG pCO2 (41-51) mmHg VBG pO2 (35-42) mmHg VBG HCO3 (19-25) mmol/l VBG O2 Saturation (60-80) % VBG Base Excess ((-2)-(+3)) mmol/l O2 Delivery Device Oxygen Flow Rate Sodium (136-145) mmol/L Potassium (3.5-5.1) mmol/L Chloride (98-107) mmol/L Carbon Dioxide (21-32) mmol/L Anion Gap (7-13) mEq/L BUN (7-18) mg/dL Creatinine (0.55-1.02) mg/dL Est Cr Clr Drug Dosing Estimated GFR (MDRD) BUN/Creatinine Ratio (No establ ref range) Glucose (70-99) mg/dL POC Glucose 430 H* (70-99) mg/dL Lactic Acid (0.4-2.0) mmol/L Calcium (8.5-10.1) mg/dL Phosphorus (2.6-4.7) mg/dL Magnesium (1.8-2.4) mg/dL Total Bilirubin (0.2-1.0) mg/dL AST (15-37) U/L ALT (14-59) U/L Alkaline Phosphatase (46-116) U/L Troponin I High Sens (<=51) pg/mL B-Natriuretic Peptide (0-100) pg/ml Total Protein (6.4-8.2) g/dL Albumin (3.4-5.0) g/dL Globulin Albumin/Globulin Ratio Urine Color Yellow (YELLOW) Urine Appearance Slightly cloudy (CLEAR) Urine pH 5.5 (5.0-9.0) Ur Specific [place] 1.020 (1.005-1.030) Urine Protein Trace H (NEGATIVE) Urine Glucose (UA) >=1000 H (NEGATIVE) Urine Ketones Trace H (NEGATIVE) Urine Occult Blood Negative (NEGATIVE) Urine Nitrite Positive H (NEGATIVE) Urine Bilirubin Small H (NEGATIVE) Urine Urobilinogen 1.0 (0.2-1.0) mg/dL Ur Leukocyte Esterase Small H (NEGATIVE) Urine RBC Not seen (0-5) /HPF Urine WBC 75-100 H (0-5/HPF) /HPF Ur Epithelial Cells Not seen (NOT SEEN) /HPF Urine Bacteria Many H (0-FEW/HPF) /HPF Urine Opiates Screen Negative (NEGATIVE) Ur Oxycodone Screen Negative (NEGATIVE) Urine Methadone Screen Negative (NEGATIVE) Ur Barbiturates Screen Negative (NEGATIVE) U Tricyclic Antidepress Negative (NEGATIVE) Ur Phencyclidine Scrn Negative (NEGATIVE) Ur Amphetamine Screen Negative (NEGATIVE) U Methamphetamines Scrn Negative (NEGATIVE) Urine MDMA Screen Negative (NEGATIVE) U Benzodiazepines Scrn Negative (NEGATIVE) Urine Cocaine Screen Negative (NEGATIVE) U Marijuana (THC) Screen Negative (NEGATIVE) Ethyl Alcohol (0) mg/dL Ketones SARS-CoV-2 RNA (AYUSH) (NEGATIVE) 05/04/21 05/04/21 05/04/21 Range/Units 21:55 22:00 23:36 WBC (5.0-10.0) 10^3/uL RBC (4.2-5.4) 10^6/uL Hgb (12.0-16.0) g/dL Hct (37.0-47.0) % MCV (80-100) fL MCH (27.0-34.0) pg MCHC (33.0-35.0) g/dL Plt Count (150-450) 10^3/uL Neut % (Auto) (42.2-75.2) % Lymph % (Auto) (20.5-50.1) % [place] % (Auto) (2-8) % Eos % (Auto) (1.0-3.0) % Baso % (Auto) (0.0-1.0) % VBG pH (7.31-7.41) VBG pCO2 (41-51) mmHg VBG pO2 (35-42) mmHg VBG HCO3 (19-25) mmol/l VBG O2 Saturation (60-80) % VBG Base Excess ((-2)-(+3)) mmol/l O2 Delivery Device Oxygen Flow Rate Sodium (136-145) mmol/L Potassium (3.5-5.1) mmol/L Chloride (98-107) mmol/L Carbon Dioxide (21-32) mmol/L Anion Gap (7-13) mEq/L BUN (7-18) mg/dL Creatinine (0.55-1.02) mg/dL Est Cr Clr Drug Dosing Estimated GFR (MDRD) BUN/Creatinine Ratio (No establ ref range) Glucose (70-99) mg/dL POC Glucose 359 H 257 H (70-99) mg/dL Lactic Acid 2.4 H* (0.4-2.0) mmol/L Calcium (8.5-10.1) mg/dL Phosphorus (2.6-4.7) mg/dL Magnesium (1.8-2.4) mg/dL Total Bilirubin (0.2-1.0) mg/dL AST (15-37) U/L ALT (14-59) U/L Alkaline Phosphatase (46-116) U/L Troponin I High Sens (<=51) pg/mL B-Natriuretic Peptide (0-100) pg/ml Total Protein (6.4-8.2) g/dL Albumin (3.4-5.0) g/dL Globulin Albumin/Globulin Ratio Urine Color (YELLOW) Urine Appearance (CLEAR) Urine pH (5.0-9.0) Ur Specific [place] (1.005-1.030) Urine Protein (NEGATIVE) Urine Glucose (UA) (NEGATIVE) Urine Ketones (NEGATIVE) Urine Occult Blood (NEGATIVE) Urine Nitrite (NEGATIVE) Urine Bilirubin (NEGATIVE) Urine Urobilinogen (0.2-1.0) mg/dL Ur Leukocyte Esterase (NEGATIVE) Urine RBC (0-5) /HPF Urine WBC (0-5/HPF) /HPF Ur Epithelial Cells (NOT SEEN) /HPF Urine Bacteria (0-FEW/HPF) /HPF Urine Opiates Screen (NEGATIVE) Ur Oxycodone Screen (NEGATIVE) Urine Methadone Screen (NEGATIVE) Ur Barbiturates Screen (NEGATIVE) U Tricyclic Antidepress (NEGATIVE) Ur Phencyclidine Scrn (NEGATIVE) Ur Amphetamine Screen (NEGATIVE) U Methamphetamines Scrn (NEGATIVE) Urine MDMA Screen (NEGATIVE) U Benzodiazepines Scrn (NEGATIVE) Urine Cocaine Screen (NEGATIVE) U Marijuana (THC) Screen (NEGATIVE) Ethyl Alcohol (0) mg/dL Ketones SARS-CoV-2 RNA (AYUSH) (NEGATIVE) 05/04/21 05/04/21 05/05/21 Range/Units 23:58 23:58 00:51 WBC (5.0-10.0) 10^3/uL RBC (4.2-5.4) 10^6/uL Hgb (12.0-16.0) g/dL Hct (37.0-47.0) % MCV (80-100) fL MCH (27.0-34.0) pg MCHC (33.0-35.0) g/dL Plt Count (150-450) 10^3/uL Neut % (Auto) (42.2-75.2) % Lymph % (Auto) (20.5-50.1) % [place] % (Auto) (2-8) % Eos % (Auto) (1.0-3.0) % Baso % (Auto) (0.0-1.0) % VBG pH (7.31-7.41) VBG pCO2 (41-51) mmHg VBG pO2 (35-42) mmHg VBG HCO3 (19-25) mmol/l VBG O2 Saturation (60-80) % VBG Base Excess ((-2)-(+3)) mmol/l O2 Delivery Device Oxygen Flow Rate Sodium 137 (136-145) mmol/L Potassium 3.5 (3.5-5.1) mmol/L Chloride 101 (98-107) mmol/L Carbon Dioxide 20 L (21-32) mmol/L Anion Gap 19.5 H (7-13) mEq/L BUN 58 H (7-18) mg/dL Creatinine 1.75 H (0.55-1.02) mg/dL Est Cr Clr Drug Dosing 25.83 Estimated GFR (MDRD) 29 BUN/Creatinine Ratio (No establ ref range) Glucose 245 H (70-99) mg/dL POC Glucose 153 H (70-99) mg/dL Lactic Acid (0.4-2.0) mmol/L Calcium 8.5 (8.5-10.1) mg/dL Phosphorus (2.6-4.7) mg/dL Magnesium (1.8-2.4) mg/dL Total Bilirubin (0.2-1.0) mg/dL AST (15-37) U/L ALT (14-59) U/L Alkaline Phosphatase (46-116) U/L Troponin I High Sens 80 H* (<=51) pg/mL B-Natriuretic Peptide (0-100) pg/ml Total Protein (6.4-8.2) g/dL Albumin (3.4-5.0) g/dL Globulin Albumin/Globulin Ratio Urine Color (YELLOW) Urine Appearance (CLEAR) Urine pH (5.0-9.0) Ur Specific [place] (1.005-1.030) Urine Protein (NEGATIVE) Urine Glucose (UA) (NEGATIVE) Urine Ketones (NEGATIVE) Urine Occult Blood (NEGATIVE) Urine Nitrite (NEGATIVE) Urine Bilirubin (NEGATIVE) Urine Urobilinogen (0.2-1.0) mg/dL Ur Leukocyte Esterase (NEGATIVE) Urine RBC (0-5) /HPF Urine WBC (0-5/HPF) /HPF Ur Epithelial Cells (NOT SEEN) /HPF Urine Bacteria (0-FEW/HPF) /HPF Urine Opiates Screen (NEGATIVE) Ur Oxycodone Screen (NEGATIVE) Urine Methadone Screen (NEGATIVE) Ur Barbiturates Screen (NEGATIVE) U Tricyclic Antidepress (NEGATIVE) Ur Phencyclidine Scrn (NEGATIVE) Ur Amphetamine Screen (NEGATIVE) U Methamphetamines Scrn (NEGATIVE) Urine MDMA Screen (NEGATIVE) U Benzodiazepines Scrn (NEGATIVE) Urine Cocaine Screen (NEGATIVE) U Marijuana (THC) Screen (NEGATIVE) Ethyl Alcohol (0) mg/dL Ketones SARS-CoV-2 RNA (AYUSH) (NEGATIVE) 05/05/21 05/05/21 05/05/21 Range/Units 02:02 06:24 06:24 WBC 9.8 (5.0-10.0) 10^3/uL RBC 5.20 (4.2-5.4) 10^6/uL Hgb 12.5 (12.0-16.0) g/dL Hct 37.0 (37.0-47.0) % MCV 71.2 L (80-100) fL MCH 24.0 L (27.0-34.0) pg MCHC 33.8 (33.0-35.0) g/dL Plt Count 232 (150-450) 10^3/uL Neut % (Auto) (42.2-75.2) % Lymph % (Auto) (20.5-50.1) % [place] % (Auto) (2-8) % Eos % (Auto) (1.0-3.0) % Baso % (Auto) (0.0-1.0) % VBG pH (7.31-7.41) VBG pCO2 (41-51) mmHg VBG pO2 (35-42) mmHg VBG HCO3 (19-25) mmol/l VBG O2 Saturation (60-80) % VBG Base Excess ((-2)-(+3)) mmol/l O2 Delivery Device Oxygen Flow Rate Sodium 137 (136-145) mmol/L Potassium 3.4 L (3.5-5.1) mmol/L Chloride 101 (98-107) mmol/L Carbon Dioxide 19 L (21-32) mmol/L Anion Gap 20.4 H (7-13) mEq/L BUN 55 H (7-18) mg/dL Creatinine 1.49 H (0.55-1.02) mg/dL Est Cr Clr Drug Dosing 30.34 Estimated GFR (MDRD) 35 BUN/Creatinine Ratio (No establ ref range) Glucose 253 H (70-99) mg/dL POC Glucose 145 H (70-99) mg/dL Lactic Acid (0.4-2.0) mmol/L Calcium 8.4 L (8.5-10.1) mg/dL Phosphorus (2.6-4.7) mg/dL Magnesium (1.8-2.4) mg/dL Total Bilirubin (0.2-1.0) mg/dL AST (15-37) U/L ALT (14-59) U/L Alkaline Phosphatase (46-116) U/L Troponin I High Sens (<=51) pg/mL B-Natriuretic Peptide (0-100) pg/ml Total Protein (6.4-8.2) g/dL Albumin (3.4-5.0) g/dL Globulin Albumin/Globulin Ratio Urine Color (YELLOW) Urine Appearance (CLEAR) Urine pH (5.0-9.0) Ur Specific [place] (1.005-1.030) Urine Protein (NEGATIVE) Urine Glucose (UA) (NEGATIVE) Urine Ketones (NEGATIVE) Urine Occult Blood (NEGATIVE) Urine Nitrite (NEGATIVE) Urine Bilirubin (NEGATIVE) Urine Urobilinogen (0.2-1.0) mg/dL Ur Leukocyte Esterase (NEGATIVE) Urine RBC (0-5) /HPF Urine WBC (0-5/HPF) /HPF Ur Epithelial Cells (NOT SEEN) /HPF Urine Bacteria (0-FEW/HPF) /HPF Urine Opiates Screen (NEGATIVE) Ur Oxycodone Screen (NEGATIVE) Urine Methadone Screen (NEGATIVE) Ur Barbiturates Screen (NEGATIVE) U Tricyclic Antidepress (NEGATIVE) Ur Phencyclidine Scrn (NEGATIVE) Ur Amphetamine Screen (NEGATIVE) U Methamphetamines Scrn (NEGATIVE) Urine MDMA Screen (NEGATIVE) U Benzodiazepines Scrn (NEGATIVE) Urine Cocaine Screen (NEGATIVE) U Marijuana (THC) Screen (NEGATIVE) Ethyl Alcohol (0) mg/dL Ketones SARS-CoV-2 RNA (AYUHS) (NEGATIVE) 05/05/21 05/05/21 05/05/21 Range/Units 06:24 07:52 11:30 WBC (5.0-10.0) 10^3/uL RBC (4.2-5.4) 10^6/uL Hgb (12.0-16.0) g/dL Hct (37.0-47.0) % MCV (80-100) fL MCH (27.0-34.0) pg MCHC (33.0-35.0) g/dL Plt Count (150-450) 10^3/uL Neut % (Auto) (42.2-75.2) % Lymph % (Auto) (20.5-50.1) % [place] % (Auto) (2-8) % Eos % (Auto) (1.0-3.0) % Baso % (Auto) (0.0-1.0) % VBG pH (7.31-7.41) VBG pCO2 (41-51) mmHg VBG pO2 (35-42) mmHg VBG HCO3 (19-25) mmol/l VBG O2 Saturation (60-80) % VBG Base Excess ((-2)-(+3)) mmol/l O2 Delivery Device Oxygen Flow Rate Sodium (136-145) mmol/L Potassium (3.5-5.1) mmol/L Chloride (98-107) mmol/L Carbon Dioxide (21-32) mmol/L Anion Gap (7-13) mEq/L BUN (7-18) mg/dL Creatinine (0.55-1.02) mg/dL Est Cr Clr Drug Dosing Estimated GFR (MDRD) BUN/Creatinine Ratio (No establ ref range) Glucose (70-99) mg/dL POC Glucose 255 H 434 H* (70-99) mg/dL Lactic Acid (0.4-2.0) mmol/L Calcium (8.5-10.1) mg/dL Phosphorus (2.6-4.7) mg/dL Magnesium (1.8-2.4) mg/dL Total Bilirubin (0.2-1.0) mg/dL AST (15-37) U/L ALT (14-59) U/L Alkaline Phosphatase (46-116) U/L Troponin I High Sens 70 H* (<=51) pg/mL B-Natriuretic Peptide (0-100) pg/ml Total Protein (6.4-8.2) g/dL Albumin (3.4-5.0) g/dL Globulin Albumin/Globulin Ratio Urine Color (YELLOW) Urine Appearance (CLEAR) Urine pH (5.0-9.0) Ur Specific [place] (1.005-1.030) Urine Protein (NEGATIVE) Urine Glucose (UA) (NEGATIVE) Urine Ketones (NEGATIVE) Urine Occult Blood (NEGATIVE) Urine Nitrite (NEGATIVE) Urine Bilirubin (NEGATIVE) Urine Urobilinogen (0.2-1.0) mg/dL Ur Leukocyte Esterase (NEGATIVE) Urine RBC (0-5) /HPF Urine WBC (0-5/HPF) /HPF Ur Epithelial Cells (NOT SEEN) /HPF Urine Bacteria (0-FEW/HPF) /HPF Urine Opiates Screen (NEGATIVE) Ur Oxycodone Screen (NEGATIVE) Urine Methadone Screen (NEGATIVE) Ur Barbiturates Screen (NEGATIVE) U Tricyclic Antidepress (NEGATIVE) Ur Phencyclidine Scrn (NEGATIVE) Ur Amphetamine Screen (NEGATIVE) U Methamphetamines Scrn (NEGATIVE) Urine MDMA Screen (NEGATIVE) U Benzodiazepines Scrn (NEGATIVE) Urine Cocaine Screen (NEGATIVE) U Marijuana (THC) Screen (NEGATIVE) Ethyl Alcohol (0) mg/dL Ketones SARS-CoV-2 RNA (AYUSH) (NEGATIVE) 05/05/21 05/05/21 Range/Units 15:17 16:19 WBC (5.0-10.0) 10^3/uL RBC (4.2-5.4) 10^6/uL Hgb (12.0-16.0) g/dL Hct (37.0-47.0) % MCV (80-100) fL MCH (27.0-34.0) pg MCHC (33.0-35.0) g/dL Plt Count (150-450) 10^3/uL Neut % (Auto) (42.2-75.2) % Lymph % (Auto) (20.5-50.1) % [place] % (Auto) (2-8) % Eos % (Auto) (1.0-3.0) % Baso % (Auto) (0.0-1.0) % VBG pH (7.31-7.41) VBG pCO2 (41-51) mmHg VBG pO2 (35-42) mmHg VBG HCO3 (19-25) mmol/l VBG O2 Saturation (60-80) % VBG Base Excess ((-2)-(+3)) mmol/l O2 Delivery Device Oxygen Flow Rate Sodium 136 (136-145) mmol/L Potassium 3.9 (3.5-5.1) mmol/L Chloride 102 (98-107) mmol/L Carbon Dioxide 20 L (21-32) mmol/L Anion Gap 17.9 H (7-13) mEq/L BUN 49 H (7-18) mg/dL Creatinine 1.50 H (0.55-1.02) mg/dL Est Cr Clr Drug Dosing 30.14 Estimated GFR (MDRD) 34 BUN/Creatinine Ratio (No establ ref range) Glucose 563 H* (70-99) mg/dL POC Glucose 503 H* (70-99) mg/dL Lactic Acid (0.4-2.0) mmol/L Calcium 7.5 L (8.5-10.1) mg/dL Phosphorus (2.6-4.7) mg/dL Magnesium (1.8-2.4) mg/dL Total Bilirubin (0.2-1.0) mg/dL AST (15-37) U/L ALT (14-59) U/L Alkaline Phosphatase (46-116) U/L Troponin I High Sens 43 (<=51) pg/mL B-Natriuretic Peptide (0-100) pg/ml Total Protein (6.4-8.2) g/dL Albumin (3.4-5.0) g/dL Globulin Albumin/Globulin Ratio Urine Color (YELLOW) Urine Appearance (CLEAR) Urine pH (5.0-9.0) Ur Specific [place] (1.005-1.030) Urine Protein (NEGATIVE) Urine Glucose (UA) (NEGATIVE) Urine Ketones (NEGATIVE) Urine Occult Blood (NEGATIVE) Urine Nitrite (NEGATIVE) Urine Bilirubin (NEGATIVE) Urine Urobilinogen (0.2-1.0) mg/dL Ur Leukocyte Esterase (NEGATIVE) Urine RBC (0-5) /HPF Urine WBC (0-5/HPF) /HPF Ur Epithelial Cells (NOT SEEN) /HPF Urine Bacteria (0-FEW/HPF) /HPF Urine Opiates Screen (NEGATIVE) Ur Oxycodone Screen (NEGATIVE) Urine Methadone Screen (NEGATIVE) Ur Barbiturates Screen (NEGATIVE) U Tricyclic Antidepress (NEGATIVE) Ur Phencyclidine Scrn (NEGATIVE) Ur Amphetamine Screen (NEGATIVE) U Methamphetamines Scrn (NEGATIVE) Urine MDMA Screen (NEGATIVE) U Benzodiazepines Scrn (NEGATIVE) Urine Cocaine Screen (NEGATIVE) U Marijuana (THC) Screen (NEGATIVE) Ethyl Alcohol (0) mg/dL Ketones SARS-CoV-2 RNA (AYUSH) (NEGATIVE) Lorenzo Results Last 24 Hours: Microbiology 05/04/21 19:54 Urine Culture - Preliminary Urine, Catheterized 05/04/21 22:00 Anaerobic Blood Culture - Final Blood - Arm, Right 05/04/21 18:25 Influenza Type A Antigen Screen - Final Nasal, Unspecified NEGATIVE INFLUENZA A VIRUS AG REFERENCE RANGE: NEGATIVE Influenza Type B Antigen Screen - Final NEGATIVE INFLUENZA B VIRUS AG REFERENCE RANGE: NEGATIVE 05/04/21 17:45 Anaerobic Blood Culture - Final Blood - Arm, Right Med Orders - Current: Current Medications Acetaminophen (Acetaminophen 325 Mg Tab) 650 mg PO Q4H PRN PRN Reason: Pain (mild 1-3 )/fever Dextrose/Water (50% Dextrose In Water 50 Ml Syringe) 50 ml IVPUSH Q15M PRN PRN Reason: Hypoglycemia Docusate Sodium (Docusate Sodium 100 Mg Cap) 100 mg PO DAILY PRN PRN Reason: Constipation Enoxaparin Sodium (Enoxaparin 40 Mg/0.4 Ml Syringe) 40 mg SUBCUT DAILY ERIN Last Admin: 05/05/21 11:59 Dose: 40 mg Documented by: Glucagon (Glucagon,Human Recombinant 1 Mg Vial) 1 mg IM Q15M PRN PRN Reason: Hypoglycemia Norepinephrine Bitartrate 4 mg (/ Dextrose/Water) 250 mls @ 22.5 mls/hr IV TITRATE ERIN; Protocol Last Titration: 05/05/21 16:21 Dose: 0 mcg/min, 0 mls/hr Documented by: Insulin Regular in 0.9 % NACL (Myxredlin In Ns 100 Unit/100 Ml) 100 unit in 100 mls @ 6.739 mls/hr IV TITRATE ERIN; Protocol Last Titration: 05/05/21 16:12 Dose: 0.1 units/kg/hr, 7 mls/hr Documented by: Piperacillin Sod/Tazobactam (Sod 3.375 gm/ Sodium Chloride) 100 mls @ 200 mls/hr IV Q6H ERIN Last Admin: 05/05/21 12:03 Dose: 200 mls/hr Documented by: Sodium Chloride (Normal Saline) 1,000 mls @ 150 mls/hr IV ASDIRECTED ERIN Stop: 05/05/21 20:46 Last Admin: 05/05/21 15:24 Dose: 150 mls/hr Documented by: Insulin Human Lispro (Insulin Lispro 100 Units/Ml 3 Ml Vial) 0 unit SUBCUT WITHMEALSANDBED ERIN; Protocol Last Admin: 05/05/21 12:03 Dose: Not Given Documented by: Sodium Chloride (Sodium Chloride 0.9% 10 Ml Syringe) 10 ml FLUSH ASDIRECTED PRN PRN Reason: Keep Vein Open Last Admin: 05/04/21 18:45 Dose: 10 ml Documented by: Discontinued Medications Dextrose/Water (50% Dextrose In Water 50 Ml Syringe) 50 ml IVPUSH Q15M PRN PRN Reason: Hypoglycemia Glucagon (Glucagon,Human Recombinant 1 Mg Vial) 1 mg IM Q15M PRN PRN Reason: Hypoglycemia Insulin Regular in 0.9 % NACL (Myxredlin In Ns 100 Unit/100 Ml) 100 unit in 100 mls @ 6.739 mls/hr IV TITRATE ERIN; Protocol Ciprofloxacin/Dextrose 400 mg/ (Premix) 200 mls @ 200 mls/hr IV ONETIME ONE Stop: 05/04/21 21:21 Last Admin: 05/04/21 21:31 Dose: 200 mls/hr Documented by: Vancomycin HCl 1.5 gm/ Premix 300 mls @ 200 mls/hr IV ONETIME ONE Stop: 05/05/21 02:59 Last Admin: 05/05/21 02:46 Dose: 200 mls/hr Documented by: Sodium Chloride (Normal Saline Advbag) Confirm Administered Dose 100 mls @ as directed .ROUTE .STK-MED ONE Stop: 05/05/21 01:58 Last Admin: 05/05/21 02:08 Dose: Not Given Documented by: Vancomycin HCl 1 gm/ Sodium (Chloride) 250 mls @ 166.667 mls/hr IV Q48H ERIN Sodium Chloride (Normal Saline) 1,000 mls @ 500 mls/hr IV ONETIME ONE Stop: 05/05/21 13:16 Last Admin: 05/05/21 11:30 Dose: 300 mls/hr Documented by: Insulin Human Lispro (Insulin Lispro 100 Units/Ml 3 Ml Vial) 10 unit SUBCUT ONETIME ONE Stop: 05/05/21 11:38 Last Admin: 05/05/21 12:02 Dose: 10 units Documented by: Lidocaine HCl (Lidocaine 2% 100 Mg/5 Ml Syringe) 20 mg IOSS ONETIME ONE Stop: 05/04/21 22:12 Last Admin: 05/04/21 23:45 Dose: 20 mg Documented by: Sodium Chloride (Sodium Chloride 0.9% 10 Ml Syringe) 10 ml FLUSH ASDIRECTED PRN PRN Reason: Keep Vein Open Last Admin: 05/04/21 18:45 Dose: 10 ml Documented by: Terbutaline Sulfate (Terbutaline 1 Mg/Ml Sdv) 1 mg SUBCUT ONETIME ONE Stop: 05/05/21 00:49 Last Admin: 05/05/21 01:23 Dose: 1 mg Documented by: Vancomycin HCl (Pharmacy To Dose - Vancomycin) 1 dose .XX ASDIRECTED ERIN - Exam Urinary Catheter Total Time: 0Days 12Hours - Patient Data Lab Results Last 24 hrs: Laboratory Results - last 24 hr 05/04/21 05/04/21 05/04/21 Range/Units 17:45 17:45 17:45 WBC 5.2 (5.0-10.0) 10^3/uL RBC 4.66 (4.2-5.4) 10^6/uL Hgb 11.3 L (12.0-16.0) g/dL Hct 34.5 L (37.0-47.0) % MCV 74.0 L (80-100) fL MCH 24.2 L (27.0-34.0) pg MCHC 32.8 L (33.0-35.0) g/dL Plt Count 164 (150-450) 10^3/uL Neut % (Auto) 58.4 (42.2-75.2) % Lymph % (Auto) 31.5 (20.5-50.1) % [place] % (Auto) 9.9 H (2-8) % Eos % (Auto) 0.0 L (1.0-3.0) % Baso % (Auto) 0.2 (0.0-1.0) % VBG pH (7.31-7.41) VBG pCO2 (41-51) mmHg VBG pO2 (35-42) mmHg VBG HCO3 (19-25) mmol/l VBG O2 Saturation (60-80) % VBG Base Excess ((-2)-(+3)) mmol/l O2 Delivery Device Oxygen Flow Rate Sodium 131 L (136-145) mmol/L Potassium 3.8 (3.5-5.1) mmol/L Chloride 94 L (98-107) mmol/L Carbon Dioxide 18 L (21-32) mmol/L Anion Gap 22.8 H (7-13) mEq/L BUN 61 H D (7-18) mg/dL Creatinine 2.16 H D (0.55-1.02) mg/dL Est Cr Clr Drug Dosing TNP Estimated GFR (MDRD) 23 BUN/Creatinine Ratio 28.2 (No establ ref range) Glucose 621 H* (70-99) mg/dL POC Glucose (70-99) mg/dL Lactic Acid 2.8 H* (0.4-2.0) mmol/L Calcium 8.3 L (8.5-10.1) mg/dL Phosphorus 3.1 (2.6-4.7) mg/dL Magnesium 2.4 (1.8-2.4) mg/dL Total Bilirubin 0.5 (0.2-1.0) mg/dL AST 9 L (15-37) U/L ALT 13 L (14-59) U/L Alkaline Phosphatase 123 H (46-116) U/L Troponin I High Sens 68 H* (<=51) pg/mL B-Natriuretic Peptide 1080 H (0-100) pg/ml Total Protein 6.0 L (6.4-8.2) g/dL Albumin 2.7 L (3.4-5.0) g/dL Globulin 3.3 Albumin/Globulin Ratio 0.82 Urine Color (YELLOW) Urine Appearance (CLEAR) Urine pH (5.0-9.0) Ur Specific [place] (1.005-1.030) Urine Protein (NEGATIVE) Urine Glucose (UA) (NEGATIVE) Urine Ketones (NEGATIVE) Urine Occult Blood (NEGATIVE) Urine Nitrite (NEGATIVE) Urine Bilirubin (NEGATIVE) Urine Urobilinogen (0.2-1.0) mg/dL Ur Leukocyte Esterase (NEGATIVE) Urine RBC (0-5) /HPF Urine WBC (0-5/HPF) /HPF Ur Epithelial Cells (NOT SEEN) /HPF Urine Bacteria (0-FEW/HPF) /HPF Urine Opiates Screen (NEGATIVE) Ur Oxycodone Screen (NEGATIVE) Urine Methadone Screen (NEGATIVE) Ur Barbiturates Screen (NEGATIVE) U Tricyclic Antidepress (NEGATIVE) Ur Phencyclidine Scrn (NEGATIVE) Ur Amphetamine Screen (NEGATIVE) U Methamphetamines Scrn (NEGATIVE) Urine MDMA Screen (NEGATIVE) U Benzodiazepines Scrn (NEGATIVE) Urine Cocaine Screen (NEGATIVE) U Marijuana (THC) Screen (NEGATIVE) Ethyl Alcohol 3 (0) mg/dL Ketones Moderate-40 mg/dl SARS-CoV-2 RNA (AYUSH) (NEGATIVE) 05/04/21 05/04/21 05/04/21 Range/Units 18:50 19:20 19:32 WBC (5.0-10.0) 10^3/uL RBC (4.2-5.4) 10^6/uL Hgb (12.0-16.0) g/dL Hct (37.0-47.0) % MCV (80-100) fL MCH (27.0-34.0) pg MCHC (33.0-35.0) g/dL Plt Count (150-450) 10^3/uL Neut % (Auto) (42.2-75.2) % Lymph % (Auto) (20.5-50.1) % [place] % (Auto) (2-8) % Eos % (Auto) (1.0-3.0) % Baso % (Auto) (0.0-1.0) % VBG pH 7.35 (7.31-7.41) VBG pCO2 35 L (41-51) mmHg VBG pO2 67 H (35-42) mmHg VBG HCO3 19 (19-25) mmol/l VBG O2 Saturation 94.3 H (60-80) % VBG Base Excess -5.3 L ((-2)-(+3)) mmol/l O2 Delivery Device Room air Oxygen Flow Rate 0 Sodium (136-145) mmol/L Potassium (3.5-5.1) mmol/L Chloride (98-107) mmol/L Carbon Dioxide (21-32) mmol/L Anion Gap (7-13) mEq/L BUN (7-18) mg/dL Creatinine (0.55-1.02) mg/dL Est Cr Clr Drug Dosing Estimated GFR (MDRD) BUN/Creatinine Ratio (No establ ref range) Glucose (70-99) mg/dL POC Glucose 518 H* (70-99) mg/dL Lactic Acid (0.4-2.0) mmol/L Calcium (8.5-10.1) mg/dL Phosphorus (2.6-4.7) mg/dL Magnesium (1.8-2.4) mg/dL Total Bilirubin (0.2-1.0) mg/dL AST (15-37) U/L ALT (14-59) U/L Alkaline Phosphatase (46-116) U/L Troponin I High Sens (<=51) pg/mL B-Natriuretic Peptide (0-100) pg/ml Total Protein (6.4-8.2) g/dL Albumin (3.4-5.0) g/dL Globulin Albumin/Globulin Ratio Urine Color (YELLOW) Urine Appearance (CLEAR) Urine pH (5.0-9.0) Ur Specific [place] (1.005-1.030) Urine Protein (NEGATIVE) Urine Glucose (UA) (NEGATIVE) Urine Ketones (NEGATIVE) Urine Occult Blood (NEGATIVE) Urine Nitrite (NEGATIVE) Urine Bilirubin (NEGATIVE) Urine Urobilinogen (0.2-1.0) mg/dL Ur Leukocyte Esterase (NEGATIVE) Urine RBC (0-5) /HPF Urine WBC (0-5/HPF) /HPF Ur Epithelial Cells (NOT SEEN) /HPF Urine Bacteria (0-FEW/HPF) /HPF Urine Opiates Screen (NEGATIVE) Ur Oxycodone Screen (NEGATIVE) Urine Methadone Screen (NEGATIVE) Ur Barbiturates Screen (NEGATIVE) U Tricyclic Antidepress (NEGATIVE) Ur Phencyclidine Scrn (NEGATIVE) Ur Amphetamine Screen (NEGATIVE) U Methamphetamines Scrn (NEGATIVE) Urine MDMA Screen (NEGATIVE) U Benzodiazepines Scrn (NEGATIVE) Urine Cocaine Screen (NEGATIVE) U Marijuana (THC) Screen (NEGATIVE) Ethyl Alcohol (0) mg/dL Ketones SARS-CoV-2 RNA (AYUSH) Negative (NEGATIVE) 05/04/21 05/04/21 05/04/21 Range/Units 19:54 19:54 20:28 WBC (5.0-10.0) 10^3/uL RBC (4.2-5.4) 10^6/uL Hgb (12.0-16.0) g/dL Hct (37.0-47.0) % MCV (80-100) fL MCH (27.0-34.0) pg MCHC (33.0-35.0) g/dL Plt Count (150-450) 10^3/uL Neut % (Auto) (42.2-75.2) % Lymph % (Auto) (20.5-50.1) % [place] % (Auto) (2-8) % Eos % (Auto) (1.0-3.0) % Baso % (Auto) (0.0-1.0) % VBG pH (7.31-7.41) VBG pCO2 (41-51) mmHg VBG pO2 (35-42) mmHg VBG HCO3 (19-25) mmol/l VBG O2 Saturation (60-80) % VBG Base Excess ((-2)-(+3)) mmol/l O2 Delivery Device Oxygen Flow Rate Sodium (136-145) mmol/L Potassium (3.5-5.1) mmol/L Chloride (98-107) mmol/L Carbon Dioxide (21-32) mmol/L Anion Gap (7-13) mEq/L BUN (7-18) mg/dL Creatinine (0.55-1.02) mg/dL Est Cr Clr Drug Dosing Estimated GFR (MDRD) BUN/Creatinine Ratio (No establ ref range) Glucose (70-99) mg/dL POC Glucose 430 H* (70-99) mg/dL Lactic Acid (0.4-2.0) mmol/L Calcium (8.5-10.1) mg/dL Phosphorus (2.6-4.7) mg/dL Magnesium (1.8-2.4) mg/dL Total Bilirubin (0.2-1.0) mg/dL AST (15-37) U/L ALT (14-59) U/L Alkaline Phosphatase (46-116) U/L Troponin I High Sens (<=51) pg/mL B-Natriuretic Peptide (0-100) pg/ml Total Protein (6.4-8.2) g/dL Albumin (3.4-5.0) g/dL Globulin Albumin/Globulin Ratio Urine Color Yellow (YELLOW) Urine Appearance Slightly cloudy (CLEAR) Urine pH 5.5 (5.0-9.0) Ur Specific [place] 1.020 (1.005-1.030) Urine Protein Trace H (NEGATIVE) Urine Glucose (UA) >=1000 H (NEGATIVE) Urine Ketones Trace H (NEGATIVE) Urine Occult Blood Negative (NEGATIVE) Urine Nitrite Positive H (NEGATIVE) Urine Bilirubin Small H (NEGATIVE) Urine Urobilinogen 1.0 (0.2-1.0) mg/dL Ur Leukocyte Esterase Small H (NEGATIVE) Urine RBC Not seen (0-5) /HPF Urine WBC 75-100 H (0-5/HPF) /HPF Ur Epithelial Cells Not seen (NOT SEEN) /HPF Urine Bacteria Many H (0-FEW/HPF) /HPF Urine Opiates Screen Negative (NEGATIVE) Ur Oxycodone Screen Negative (NEGATIVE) Urine Methadone Screen Negative (NEGATIVE) Ur Barbiturates Screen Negative (NEGATIVE) U Tricyclic Antidepress Negative (NEGATIVE) Ur Phencyclidine Scrn Negative (NEGATIVE) Ur Amphetamine Screen Negative (NEGATIVE) U Methamphetamines Scrn Negative (NEGATIVE) Urine MDMA Screen Negative (NEGATIVE) U Benzodiazepines Scrn Negative (NEGATIVE) Urine Cocaine Screen Negative (NEGATIVE) U Marijuana (THC) Screen Negative (NEGATIVE) Ethyl Alcohol (0) mg/dL Ketones SARS-CoV-2 RNA (AYUSH) (NEGATIVE) 05/04/21 05/04/21 05/04/21 Range/Units 21:55 22:00 23:36 WBC (5.0-10.0) 10^3/uL RBC (4.2-5.4) 10^6/uL Hgb (12.0-16.0) g/dL Hct (37.0-47.0) % MCV (80-100) fL MCH (27.0-34.0) pg MCHC (33.0-35.0) g/dL Plt Count (150-450) 10^3/uL Neut % (Auto) (42.2-75.2) % Lymph % (Auto) (20.5-50.1) % [place] % (Auto) (2-8) % Eos % (Auto) (1.0-3.0) % Baso % (Auto) (0.0-1.0) % VBG pH (7.31-7.41) VBG pCO2 (41-51) mmHg VBG pO2 (35-42) mmHg VBG HCO3 (19-25) mmol/l VBG O2 Saturation (60-80) % VBG Base Excess ((-2)-(+3)) mmol/l O2 Delivery Device Oxygen Flow Rate Sodium (136-145) mmol/L Potassium (3.5-5.1) mmol/L Chloride (98-107) mmol/L Carbon Dioxide (21-32) mmol/L Anion Gap (7-13) mEq/L BUN (7-18) mg/dL Creatinine (0.55-1.02) mg/dL Est Cr Clr Drug Dosing Estimated GFR (MDRD) BUN/Creatinine Ratio (No establ ref range) Glucose (70-99) mg/dL POC Glucose 359 H 257 H (70-99) mg/dL Lactic Acid 2.4 H* (0.4-2.0) mmol/L Calcium (8.5-10.1) mg/dL Phosphorus (2.6-4.7) mg/dL Magnesium (1.8-2.4) mg/dL Total Bilirubin (0.2-1.0) mg/dL AST (15-37) U/L ALT (14-59) U/L Alkaline Phosphatase (46-116) U/L Troponin I High Sens (<=51) pg/mL B-Natriuretic Peptide (0-100) pg/ml Total Protein (6.4-8.2) g/dL Albumin (3.4-5.0) g/dL Globulin Albumin/Globulin Ratio Urine Color (YELLOW) Urine Appearance (CLEAR) Urine pH (5.0-9.0) Ur Specific [place] (1.005-1.030) Urine Protein (NEGATIVE) Urine Glucose (UA) (NEGATIVE) Urine Ketones (NEGATIVE) Urine Occult Blood (NEGATIVE) Urine Nitrite (NEGATIVE) Urine Bilirubin (NEGATIVE) Urine Urobilinogen (0.2-1.0) mg/dL Ur Leukocyte Esterase (NEGATIVE) Urine RBC (0-5) /HPF Urine WBC (0-5/HPF) /HPF Ur Epithelial Cells (NOT SEEN) /HPF Urine Bacteria (0-FEW/HPF) /HPF Urine Opiates Screen (NEGATIVE) Ur Oxycodone Screen (NEGATIVE) Urine Methadone Screen (NEGATIVE) Ur Barbiturates Screen (NEGATIVE) U Tricyclic Antidepress (NEGATIVE) Ur Phencyclidine Scrn (NEGATIVE) Ur Amphetamine Screen (NEGATIVE) U Methamphetamines Scrn (NEGATIVE) Urine MDMA Screen (NEGATIVE) U Benzodiazepines Scrn (NEGATIVE) Urine Cocaine Screen (NEGATIVE) U Marijuana (THC) Screen (NEGATIVE) Ethyl Alcohol (0) mg/dL Ketones SARS-CoV-2 RNA (AYUSH) (NEGATIVE) 05/04/21 05/04/21 05/05/21 Range/Units 23:58 23:58 00:51 WBC (5.0-10.0) 10^3/uL RBC (4.2-5.4) 10^6/uL Hgb (12.0-16.0) g/dL Hct (37.0-47.0) % MCV (80-100) fL MCH (27.0-34.0) pg MCHC (33.0-35.0) g/dL Plt Count (150-450) 10^3/uL Neut % (Auto) (42.2-75.2) % Lymph % (Auto) (20.5-50.1) % [place] % (Auto) (2-8) % Eos % (Auto) (1.0-3.0) % Baso % (Auto) (0.0-1.0) % VBG pH (7.31-7.41) VBG pCO2 (41-51) mmHg VBG pO2 (35-42) mmHg VBG HCO3 (19-25) mmol/l VBG O2 Saturation (60-80) % VBG Base Excess ((-2)-(+3)) mmol/l O2 Delivery Device Oxygen Flow Rate Sodium 137 (136-145) mmol/L Potassium 3.5 (3.5-5.1) mmol/L Chloride 101 (98-107) mmol/L Carbon Dioxide 20 L (21-32) mmol/L Anion Gap 19.5 H (7-13) mEq/L BUN 58 H (7-18) mg/dL Creatinine 1.75 H (0.55-1.02) mg/dL Est Cr Clr Drug Dosing 25.83 Estimated GFR (MDRD) 29 BUN/Creatinine Ratio (No establ ref range) Glucose 245 H (70-99) mg/dL POC Glucose 153 H (70-99) mg/dL Lactic Acid (0.4-2.0) mmol/L Calcium 8.5 (8.5-10.1) mg/dL Phosphorus (2.6-4.7) mg/dL Magnesium (1.8-2.4) mg/dL Total Bilirubin (0.2-1.0) mg/dL AST (15-37) U/L ALT (14-59) U/L Alkaline Phosphatase (46-116) U/L Troponin I High Sens 80 H* (<=51) pg/mL B-Natriuretic Peptide (0-100) pg/ml Total Protein (6.4-8.2) g/dL Albumin (3.4-5.0) g/dL Globulin Albumin/Globulin Ratio Urine Color (YELLOW) Urine Appearance (CLEAR) Urine pH (5.0-9.0) Ur Specific [place] (1.005-1.030) Urine Protein (NEGATIVE) Urine Glucose (UA) (NEGATIVE) Urine Ketones (NEGATIVE) Urine Occult Blood (NEGATIVE) Urine Nitrite (NEGATIVE) Urine Bilirubin (NEGATIVE) Urine Urobilinogen (0.2-1.0) mg/dL Ur Leukocyte Esterase (NEGATIVE) Urine RBC (0-5) /HPF Urine WBC (0-5/HPF) /HPF Ur Epithelial Cells (NOT SEEN) /HPF Urine Bacteria (0-FEW/HPF) /HPF Urine Opiates Screen (NEGATIVE) Ur Oxycodone Screen (NEGATIVE) Urine Methadone Screen (NEGATIVE) Ur Barbiturates Screen (NEGATIVE) U Tricyclic Antidepress (NEGATIVE) Ur Phencyclidine Scrn (NEGATIVE) Ur Amphetamine Screen (NEGATIVE) U Methamphetamines Scrn (NEGATIVE) Urine MDMA Screen (NEGATIVE) U Benzodiazepines Scrn (NEGATIVE) Urine Cocaine Screen (NEGATIVE) U Marijuana (THC) Screen (NEGATIVE) Ethyl Alcohol (0) mg/dL Ketones SARS-CoV-2 RNA (AYUSH) (NEGATIVE) 05/05/21 05/05/21 05/05/21 Range/Units 02:02 06:24 06:24 WBC 9.8 (5.0-10.0) 10^3/uL RBC 5.20 (4.2-5.4) 10^6/uL Hgb 12.5 (12.0-16.0) g/dL Hct 37.0 (37.0-47.0) % MCV 71.2 L (80-100) fL MCH 24.0 L (27.0-34.0) pg MCHC 33.8 (33.0-35.0) g/dL Plt Count 232 (150-450) 10^3/uL Neut % (Auto) (42.2-75.2) % Lymph % (Auto) (20.5-50.1) % [place] % (Auto) (2-8) % Eos % (Auto) (1.0-3.0) % Baso % (Auto) (0.0-1.0) % VBG pH (7.31-7.41) VBG pCO2 (41-51) mmHg VBG pO2 (35-42) mmHg VBG HCO3 (19-25) mmol/l VBG O2 Saturation (60-80) % VBG Base Excess ((-2)-(+3)) mmol/l O2 Delivery Device Oxygen Flow Rate Sodium 137 (136-145) mmol/L Potassium 3.4 L (3.5-5.1) mmol/L Chloride 101 (98-107) mmol/L Carbon Dioxide 19 L (21-32) mmol/L Anion Gap 20.4 H (7-13) mEq/L BUN 55 H (7-18) mg/dL Creatinine 1.49 H (0.55-1.02) mg/dL Est Cr Clr Drug Dosing 30.34 Estimated GFR (MDRD) 35 BUN/Creatinine Ratio (No establ ref range) Glucose 253 H (70-99) mg/dL POC Glucose 145 H (70-99) mg/dL Lactic Acid (0.4-2.0) mmol/L Calcium 8.4 L (8.5-10.1) mg/dL Phosphorus (2.6-4.7) mg/dL Magnesium (1.8-2.4) mg/dL Total Bilirubin (0.2-1.0) mg/dL AST (15-37) U/L ALT (14-59) U/L Alkaline Phosphatase (46-116) U/L Troponin I High Sens (<=51) pg/mL B-Natriuretic Peptide (0-100) pg/ml Total Protein (6.4-8.2) g/dL Albumin (3.4-5.0) g/dL Globulin Albumin/Globulin Ratio Urine Color (YELLOW) Urine Appearance (CLEAR) Urine pH (5.0-9.0) Ur Specific [place] (1.005-1.030) Urine Protein (NEGATIVE) Urine Glucose (UA) (NEGATIVE) Urine Ketones (NEGATIVE) Urine Occult Blood (NEGATIVE) Urine Nitrite (NEGATIVE) Urine Bilirubin (NEGATIVE) Urine Urobilinogen (0.2-1.0) mg/dL Ur Leukocyte Esterase (NEGATIVE) Urine RBC (0-5) /HPF Urine WBC (0-5/HPF) /HPF Ur Epithelial Cells (NOT SEEN) /HPF Urine Bacteria (0-FEW/HPF) /HPF Urine Opiates Screen (NEGATIVE) Ur Oxycodone Screen (NEGATIVE) Urine Methadone Screen (NEGATIVE) Ur Barbiturates Screen (NEGATIVE) U Tricyclic Antidepress (NEGATIVE) Ur Phencyclidine Scrn (NEGATIVE) Ur Amphetamine Screen (NEGATIVE) U Methamphetamines Scrn (NEGATIVE) Urine MDMA Screen (NEGATIVE) U Benzodiazepines Scrn (NEGATIVE) Urine Cocaine Screen (NEGATIVE) U Marijuana (THC) Screen (NEGATIVE) Ethyl Alcohol (0) mg/dL Ketones SARS-CoV-2 RNA (AYUSH) (NEGATIVE) 05/05/21 05/05/21 05/05/21 Range/Units 06:24 07:52 11:30 WBC (5.0-10.0) 10^3/uL RBC (4.2-5.4) 10^6/uL Hgb (12.0-16.0) g/dL Hct (37.0-47.0) % MCV (80-100) fL MCH (27.0-34.0) pg MCHC (33.0-35.0) g/dL Plt Count (150-450) 10^3/uL Neut % (Auto) (42.2-75.2) % Lymph % (Auto) (20.5-50.1) % [place] % (Auto) (2-8) % Eos % (Auto) (1.0-3.0) % Baso % (Auto) (0.0-1.0) % VBG pH (7.31-7.41) VBG pCO2 (41-51) mmHg VBG pO2 (35-42) mmHg VBG HCO3 (19-25) mmol/l VBG O2 Saturation (60-80) % VBG Base Excess ((-2)-(+3)) mmol/l O2 Delivery Device Oxygen Flow Rate Sodium (136-145) mmol/L Potassium (3.5-5.1) mmol/L Chloride (98-107) mmol/L Carbon Dioxide (21-32) mmol/L Anion Gap (7-13) mEq/L BUN (7-18) mg/dL Creatinine (0.55-1.02) mg/dL Est Cr Clr Drug Dosing Estimated GFR (MDRD) BUN/Creatinine Ratio (No establ ref range) Glucose (70-99) mg/dL POC Glucose 255 H 434 H* (70-99) mg/dL Lactic Acid (0.4-2.0) mmol/L Calcium (8.5-10.1) mg/dL Phosphorus (2.6-4.7) mg/dL Magnesium (1.8-2.4) mg/dL Total Bilirubin (0.2-1.0) mg/dL AST (15-37) U/L ALT (14-59) U/L Alkaline Phosphatase (46-116) U/L Troponin I High Sens 70 H* (<=51) pg/mL B-Natriuretic Peptide (0-100) pg/ml Total Protein (6.4-8.2) g/dL Albumin (3.4-5.0) g/dL Globulin Albumin/Globulin Ratio Urine Color (YELLOW) Urine Appearance (CLEAR) Urine pH (5.0-9.0) Ur Specific [place] (1.005-1.030) Urine Protein (NEGATIVE) Urine Glucose (UA) (NEGATIVE) Urine Ketones (NEGATIVE) Urine Occult Blood (NEGATIVE) Urine Nitrite (NEGATIVE) Urine Bilirubin (NEGATIVE) Urine Urobilinogen (0.2-1.0) mg/dL Ur Leukocyte Esterase (NEGATIVE) Urine RBC (0-5) /HPF Urine WBC (0-5/HPF) /HPF Ur Epithelial Cells (NOT SEEN) /HPF Urine Bacteria (0-FEW/HPF) /HPF Urine Opiates Screen (NEGATIVE) Ur Oxycodone Screen (NEGATIVE) Urine Methadone Screen (NEGATIVE) Ur Barbiturates Screen (NEGATIVE) U Tricyclic Antidepress (NEGATIVE) Ur Phencyclidine Scrn (NEGATIVE) Ur Amphetamine Screen (NEGATIVE) U Methamphetamines Scrn (NEGATIVE) Urine MDMA Screen (NEGATIVE) U Benzodiazepines Scrn (NEGATIVE) Urine Cocaine Screen (NEGATIVE) U Marijuana (THC) Screen (NEGATIVE) Ethyl Alcohol (0) mg/dL Ketones SARS-CoV-2 RNA (AYUSH) (NEGATIVE) 05/05/21 05/05/21 Range/Units 15:17 16:19 WBC (5.0-10.0) 10^3/uL RBC (4.2-5.4) 10^6/uL Hgb (12.0-16.0) g/dL Hct (37.0-47.0) % MCV (80-100) fL MCH (27.0-34.0) pg MCHC (33.0-35.0) g/dL Plt Count (150-450) 10^3/uL Neut % (Auto) (42.2-75.2) % Lymph % (Auto) (20.5-50.1) % [place] % (Auto) (2-8) % Eos % (Auto) (1.0-3.0) % Baso % (Auto) (0.0-1.0) % VBG pH (7.31-7.41) VBG pCO2 (41-51) mmHg VBG pO2 (35-42) mmHg VBG HCO3 (19-25) mmol/l VBG O2 Saturation (60-80) % VBG Base Excess ((-2)-(+3)) mmol/l O2 Delivery Device Oxygen Flow Rate Sodium 136 (136-145) mmol/L Potassium 3.9 (3.5-5.1) mmol/L Chloride 102 (98-107) mmol/L Carbon Dioxide 20 L (21-32) mmol/L Anion Gap 17.9 H (7-13) mEq/L BUN 49 H (7-18) mg/dL Creatinine 1.50 H (0.55-1.02) mg/dL Est Cr Clr Drug Dosing 30.14 Estimated GFR (MDRD) 34 BUN/Creatinine Ratio (No establ ref range) Glucose 563 H* (70-99) mg/dL POC Glucose 503 H* (70-99) mg/dL Lactic Acid (0.4-2.0) mmol/L Calcium 7.5 L (8.5-10.1) mg/dL Phosphorus (2.6-4.7) mg/dL Magnesium (1.8-2.4) mg/dL Total Bilirubin (0.2-1.0) mg/dL AST (15-37) U/L ALT (14-59) U/L Alkaline Phosphatase (46-116) U/L Troponin I High Sens 43 (<=51) pg/mL B-Natriuretic Peptide (0-100) pg/ml Total Protein (6.4-8.2) g/dL Albumin (3.4-5.0) g/dL Globulin Albumin/Globulin Ratio Urine Color (YELLOW) Urine Appearance (CLEAR) Urine pH (5.0-9.0) Ur Specific [place] (1.005-1.030) Urine Protein (NEGATIVE) Urine Glucose (UA) (NEGATIVE) Urine Ketones (NEGATIVE) Urine Occult Blood (NEGATIVE) Urine Nitrite (NEGATIVE) Urine Bilirubin (NEGATIVE) Urine Urobilinogen (0.2-1.0) mg/dL Ur Leukocyte Esterase (NEGATIVE) Urine RBC (0-5) /HPF Urine WBC (0-5/HPF) /HPF Ur Epithelial Cells (NOT SEEN) /HPF Urine Bacteria (0-FEW/HPF) /HPF Urine Opiates Screen (NEGATIVE) Ur Oxycodone Screen (NEGATIVE) Urine Methadone Screen (NEGATIVE) Ur Barbiturates Screen (NEGATIVE) U Tricyclic Antidepress (NEGATIVE) Ur Phencyclidine Scrn (NEGATIVE) Ur Amphetamine Screen (NEGATIVE) U Methamphetamines Scrn (NEGATIVE) Urine MDMA Screen (NEGATIVE) U Benzodiazepines Scrn (NEGATIVE) Urine Cocaine Screen (NEGATIVE) U Marijuana (THC) Screen (NEGATIVE) Ethyl Alcohol (0) mg/dL Ketones SARS-CoV-2 RNA (AYUSH) (NEGATIVE) Result Diagrams: 05/06/21 05:40 05/06/21 05:40 Lorenzo Results Last 24 hrs: Microbiology 05/04/21 19:54 Urine Culture - Preliminary Urine, Catheterized 05/04/21 22:00 Anaerobic Blood Culture - Final Blood - Arm, Right 05/04/21 18:25 Influenza Type A Antigen Screen - Final Nasal, Unspecified NEGATIVE INFLUENZA A VIRUS AG REFERENCE RANGE: NEGATIVE Influenza Type B Antigen Screen - Final NEGATIVE INFLUENZA B VIRUS AG REFERENCE RANGE: NEGATIVE 05/04/21 17:45 Anaerobic Blood Culture - Final Blood - Arm, Right Sepsis Event Note - Evaluation Sepsis Screening Result: Possible Sepsis Risk - Focused Exam Vital Signs: Vital Signs Temp Pulse Resp BP Pulse Ox 05/05/21 16:00 98.6 F 16 98/59 L 97 05/05/21 12:00 97.9 F 76 18 114/54 L 96 05/05/21 08:00 98.8 F 78 18 87/53 L 96 - Problem List Review Problem List Initiated/Reviewed/Updated: No - My Orders Last 24 Hours: My Active Orders 05/05/21 11:37 Dextrose 50% in Water 50 ml IVPUSH Q15M PRN Glucagon,Human Recombinant [GlucaGen] 1 mg IM Q15M PRN 05/05/21 13:45 Sodium Chloride 0.9% [Normal Saline] 1,000 ml IV ASDIRECTED 05/05/21 15:08 METH-RESIST S.AUR,MRSA BY PCR [MOLEC] Routine 05/05/21 16:19 PROCALCITONIN [REF] Routine - Plan Plan:: SUBJECTIVE: Alert and oriented to place and time this morning; does not want to engage in conversation. Does not know why she is in hospital, does not remember yesterday's events. On questioning, unable to give me names of any of her home meds. Mentions no symptoms of recent concern to her; ROS negative for concerning findings, although patient's input is unreliable. I spoke to her daughter who mentions noticing several days of increased cough and fever (unclear how high) in patient. OBJECTIVE: SBP 90s on norepi infusion. Heart, lung, abdomen exams unremarkable. Alert, oriented x2, motor strength 4/5 in all groups. Physical exam otherwise negative for concerning findings. I viewed lab and imaging results in chart. ASSESSMENT / PLAN: Coreen was admitted on 05/04 for an episode altered mentation (stupor) and hypotension with SBP in 50s requiring immediate intra-osseous access and norepi infusion. Acute encephalopathy. Improved by 05/05. Severe sepsis (daughter's report of fever at home; RR and lactate elevated on admission). Septic shock ruled out on BP response to IV fluid infusion on 05/05. Albumin 25g IV on 05/05, IV fluid infusion continued. Comm acq pneumonia of both lungs. Diagnosis supported by bilat infiltrates on CXR. MRSA nasal screen ordered 05/05; vanc discontinued in interim, zosyn to continue. Complicated UTI. Urine culture showing G -ve bacilli; on zosyn. SHANTEL. Likely pre-renal. Cr 2 on presentation <-- 0.7 in 03/2021. Acute hyperglycemia without ketosis in severely uncontrolled type 2 diabetic. Gluc improved then bladimir to high 500s on 05/05; insulin infusion restarted. CAD, h/o stent to bypass graft in 02/2020. Severe peripheral artery disease, presence of stents. Chronic diastolic heart failure. Lasix held in setting hypotension. Concern for vulnerable adult. Staff aware; she might need discussion of SNF placement. Since BP improved on fluid infusion, will keep patient hospitalized in [place] instead of transferring. Lovenox subcu Full code; discussed with patient and daughter.
[2021-05-05] MEDS: Acetaminophen 325 MG Tab PO PRN (19:16)
[2021-05-05] MEDS: Sodium Chloride 0.9% 10 ML Syringe FLUSH PRN (19:28)
[2021-05-05] MEDS ORDERED: Albumin Human 50 GM in Premix Bag 1 BAG IV ONE (21:30)
[2021-05-05] MEDS ORDERED: Insulin Glarg,Human.Rec.Analog 100 Unit/ML SUBCUT SCH (21:58)
[2021-05-05] MEDS: Polyethylene Glycol 3350 Powder 17 GM Packet PO SCH (22:19)
[2021-05-05] MEDS: Melatonin 3 MG Tab PO PRN (22:22)
[2021-05-06] MEDS: Piperacillin/Tazobactam 3.375 GM in Sodium Chloride 0.9% 100 ML IV SCH ×4 (01:34→18:10)
[2021-05-06 06:31] LABS: ANION GAP 16.4 mEq/L (7-13)
[2021-05-06] MEDS: Polyethylene Glycol 3350 Powder 17 GM Packet PO SCH ×2 (08:43→21:10)
[2021-05-06] MEDS: Enoxaparin 40 MG/0.4 ML Syringe SUBCUT SCH (08:43)
[2021-05-06] MEDS: Insulin Lispro 100 Units/ML 3 ML Vial SUBCUT SCH ×4 (08:48→21:13)
[2021-05-06] MEDS ORDERED: Potassium Chloride 10 MEQ Tab.ER PO ONE (11:54)
[2021-05-06] MEDS: Insulin Glarg,Human.Rec.Analog 100 Unit/ML SUBCUT SCH (17:43)
--- NOTE | 2021-05-06 20:51 | PCM.PN ---
- General Info Date of Service: 05/06/21 - Patient Data Vitals - Most Recent: Last Vital Signs Temp 98.7 F 05/06/21 20:00 Pulse 82 05/06/21 20:00 Resp 23 H 05/06/21 20:00 BP 127/59 L 05/06/21 20:00 Pulse Ox 96 05/06/21 20:00 Weight - Most Recent: 155 lb 11.2 oz I&O - Last 24 Hours: Intake & Output 05/06/21 05/06/21 05/06/21 06:59 14:59 22:59 Intake Total 700 550 Output Total 1050 750 Balance -350 -200 Lab Results Last 24 Hours: Laboratory Results - last 24 hr 05/05/21 05/05/21 05/05/21 Range/Units 20:35 21:36 22:27 WBC (5.0-10.0) 10^3/uL RBC (4.2-5.4) 10^6/uL Hgb (12.0-16.0) g/dL Hct (37.0-47.0) % MCV (80-100) fL MCH (27.0-34.0) pg MCHC (33.0-35.0) g/dL Plt Count (150-450) 10^3/uL Sodium (136-145) mmol/L Potassium (3.5-5.1) mmol/L Chloride (98-107) mmol/L Carbon Dioxide (21-32) mmol/L Anion Gap (7-13) mEq/L BUN (7-18) mg/dL Creatinine (0.55-1.02) mg/dL Est Cr Clr Drug Dosing mL/min Estimated GFR (MDRD) Glucose (70-99) mg/dL POC Glucose 288 H 270 H 193 H (70-99) mg/dL Calcium (8.5-10.1) mg/dL Phosphorus (2.6-4.7) mg/dL 05/06/21 05/06/21 05/06/21 Range/Units 02:07 04:41 05:40 WBC 5.5 (5.0-10.0) 10^3/uL RBC 4.27 (4.2-5.4) 10^6/uL Hgb 10.4 L D (12.0-16.0) g/dL Hct 31.3 L (37.0-47.0) % MCV 73.3 L (80-100) fL MCH 24.4 L (27.0-34.0) pg MCHC 33.2 (33.0-35.0) g/dL Plt Count 143 L D (150-450) 10^3/uL Sodium (136-145) mmol/L Potassium (3.5-5.1) mmol/L Chloride (98-107) mmol/L Carbon Dioxide (21-32) mmol/L Anion Gap (7-13) mEq/L BUN (7-18) mg/dL Creatinine (0.55-1.02) mg/dL Est Cr Clr Drug Dosing mL/min Estimated GFR (MDRD) Glucose (70-99) mg/dL POC Glucose 177 H 222 H (70-99) mg/dL Calcium (8.5-10.1) mg/dL Phosphorus (2.6-4.7) mg/dL 05/06/21 05/06/21 05/06/21 Range/Units 05:40 08:03 11:51 WBC (5.0-10.0) 10^3/uL RBC (4.2-5.4) 10^6/uL Hgb (12.0-16.0) g/dL Hct (37.0-47.0) % MCV (80-100) fL MCH (27.0-34.0) pg MCHC (33.0-35.0) g/dL Plt Count (150-450) 10^3/uL Sodium 142 (136-145) mmol/L Potassium 3.4 L (3.5-5.1) mmol/L Chloride 108 H (98-107) mmol/L Carbon Dioxide 21 (21-32) mmol/L Anion Gap 16.4 H (7-13) mEq/L BUN 36 H (7-18) mg/dL Creatinine 1.00 (0.55-1.02) mg/dL Est Cr Clr Drug Dosing 45.20 mL/min Estimated GFR (MDRD) 55 Glucose 254 H (70-99) mg/dL POC Glucose 260 H 191 H (70-99) mg/dL Calcium 7.7 L (8.5-10.1) mg/dL Phosphorus 2.8 (2.6-4.7) mg/dL 05/06/21 05/06/21 Range/Units 16:31 20:18 WBC (5.0-10.0) 10^3/uL RBC (4.2-5.4) 10^6/uL Hgb (12.0-16.0) g/dL Hct (37.0-47.0) % MCV (80-100) fL MCH (27.0-34.0) pg MCHC (33.0-35.0) g/dL Plt Count (150-450) 10^3/uL Sodium (136-145) mmol/L Potassium (3.5-5.1) mmol/L Chloride (98-107) mmol/L Carbon Dioxide (21-32) mmol/L Anion Gap (7-13) mEq/L BUN (7-18) mg/dL Creatinine (0.55-1.02) mg/dL Est Cr Clr Drug Dosing mL/min Estimated GFR (MDRD) Glucose (70-99) mg/dL POC Glucose 317 H 246 H (70-99) mg/dL Calcium (8.5-10.1) mg/dL Phosphorus (2.6-4.7) mg/dL Lorenzo Results Last 24 Hours: Microbiology 05/04/21 17:45 Aerobic Blood Culture - Preliminary Blood - Arm, Right NO GROWTH AFTER 2 DAYS Anaerobic Blood Culture - Final 05/04/21 19:54 Urine Culture - Preliminary Urine, Catheterized 05/04/21 22:00 Aerobic Blood Culture - Preliminary Blood - Arm, Right NO GROWTH AFTER 1 DAY Anaerobic Blood Culture - Final Med Orders - Current: Current Medications Acetaminophen (Acetaminophen 325 Mg Tab) 650 mg PO Q4H PRN PRN Reason: Pain (mild 1-3 )/fever Last Admin: 05/05/21 19:16 Dose: 650 mg Documented by: Ciprofloxacin (Ciprofloxacin 500 Mg Tab) 500 mg PO BID [facility] Dextrose/Water (50% Dextrose In Water 50 Ml Syringe) 50 ml IVPUSH Q15M PRN PRN Reason: Hypoglycemia Docusate Sodium (Docusate Sodium 100 Mg Cap) 100 mg PO DAILY PRN PRN Reason: Constipation Enoxaparin Sodium (Enoxaparin 40 Mg/0.4 Ml Syringe) 40 mg SUBCUT DAILY [facility] Last Admin: 05/06/21 08:43 Dose: 40 mg Documented by: Furosemide (Furosemide 40 Mg Tab) 40 mg PO DAILY [facility] Glucagon (Glucagon,Human Recombinant 1 Mg Vial) 1 mg IM Q15M PRN PRN Reason: Hypoglycemia Insulin Glargine (Insulin Glarg,Human.Rec.Analog 100 Unit/Ml) 15 unit SUBCUT BEDTIME [facility] Last Admin: 05/06/21 17:43 Dose: 15 units Documented by: Insulin Human Lispro (Insulin Lispro 100 Units/Ml 3 Ml Vial) 0 unit SUBCUT WITHMEALSANDBED [facility]; Protocol Last Admin: 05/06/21 17:39 Dose: 12 units Documented by: Melatonin (Melatonin 3 Mg Tab) 6 mg PO BEDTIME PRN PRN Reason: Insomnia Last Admin: 05/05/21 22:22 Dose: 6 mg Documented by: Polyethylene Glycol (Polyethylene Glycol 3350 Powder 17 Gm Packet) 17 gm PO BID [facility] Last Admin: 05/06/21 08:43 Dose: 17 gm Documented by: Sodium Chloride (Sodium Chloride 0.9% 10 Ml Syringe) 10 ml FLUSH ASDIRECTED PRN PRN Reason: Keep Vein Open Last Admin: 05/05/21 19:28 Dose: 10 ml Documented by: Zolpidem Tartrate (Zolpidem 5 Mg Tab) 2.5 mg PO BEDTIME PRN PRN Reason: Insomnia Discontinued Medications Dextrose/Water (50% Dextrose In Water 50 Ml Syringe) 50 ml IVPUSH Q15M PRN PRN Reason: Hypoglycemia Glucagon (Glucagon,Human Recombinant 1 Mg Vial) 1 mg IM Q15M PRN PRN Reason: Hypoglycemia Insulin Regular in 0.9 % NACL (Myxredlin In Ns 100 Unit/100 Ml) 100 unit in 100 mls @ 6.739 mls/hr IV TITRATE ERIN; Protocol Norepinephrine Bitartrate 4 mg (/ Dextrose/Water) 250 mls @ 22.5 mls/hr IV TITRATE ERIN; Protocol Last Titration: 05/05/21 16:21 Dose: 0 mcg/min, 0 mls/hr Documented by: Insulin Regular in 0.9 % NACL (Myxredlin In Ns 100 Unit/100 Ml) 100 unit in 100 mls @ 6.739 mls/hr IV TITRATE ERIN; Protocol Last Titration: 05/05/21 22:29 Dose: 0 units/kg/hr, 0 mls/hr Documented by: Ciprofloxacin/Dextrose 400 mg/ (Premix) 200 mls @ 200 mls/hr IV ONETIME ONE Stop: 05/04/21 21:21 Last Admin: 05/04/21 21:31 Dose: 200 mls/hr Documented by: Piperacillin Sod/Tazobactam (Sod 3.375 gm/ Sodium Chloride) 100 mls @ 200 mls/hr IV Q6H [facility] Last Infusion: 05/06/21 18:51 Dose: Infused Documented by: Vancomycin HCl 1.5 gm/ Premix 300 mls @ 200 mls/hr IV ONETIME ONE Stop: 05/05/21 02:59 Last Admin: 05/05/21 02:46 Dose: 200 mls/hr Documented by: Sodium Chloride (Normal Saline Advbag) Confirm Administered Dose 100 mls @ as directed .ROUTE .STK-MED ONE Stop: 05/05/21 01:58 Last Admin: 05/05/21 02:08 Dose: Not Given Documented by: Vancomycin HCl 1 gm/ Sodium (Chloride) 250 mls @ 166.667 mls/hr IV Q48H [facility] Sodium Chloride (Normal Saline) 1,000 mls @ 500 mls/hr IV ONETIME ONE Stop: 05/05/21 13:16 Last Admin: 05/05/21 11:30 Dose: 300 mls/hr Documented by: Sodium Chloride (Normal Saline) 1,000 mls @ 150 mls/hr IV ASDIRECTED [facility] Stop: 05/05/21 20:46 Last Admin: 05/05/21 15:24 Dose: 150 mls/hr Documented by: Albumin Human 50 gm/ Premix 200 mls @ 100 mls/hr IV NOW ONE Stop: 05/05/21 23:29 Last Admin: 05/05/21 22:02 Dose: 100 mls/hr Documented by: Sodium Chloride (Normal Saline) 1,000 mls @ 125 mls/hr IV ASDIRECTED [facility] Stop: 05/06/21 06:01 Sodium Chloride (Normal Saline) 1,000 mls @ 75 mls/hr IV ASDIRECTED [facility] Stop: 05/06/21 12:45 Last Admin: 05/06/21 04:06 Dose: 75 mls/hr Documented by: Insulin Glargine (Insulin Glarg,Human.Rec.Analog 100 Unit/Ml) 10 unit SUBCUT BEDTIME [facility] Last Admin: 01/03/22 22:21 Dose: 10 units Documented by: Insulin Human Lispro (Insulin Lispro 100 Units/Ml 3 Ml Vial) 10 unit SUBCUT ONETIME ONE Stop: 05/05/21 11:38 Last Admin: 05/05/21 12:02 Dose: 10 units Documented by: Lidocaine HCl (Lidocaine 2% 100 Mg/5 Ml Syringe) 20 mg IOSS ONETIME ONE Stop: 05/04/21 22:12 Last Admin: 05/04/21 23:45 Dose: 20 mg Documented by: Potassium Chloride (Potassium Chloride 10 Meq Tab.Er) 40 meq PO ONETIME ONE Stop: 05/06/21 11:55 Last Admin: 05/06/21 12:29 Dose: 40 meq Documented by: Sodium Chloride (Sodium Chloride 0.9% 10 Ml Syringe) 10 ml FLUSH ASDIRECTED PRN PRN Reason: Keep Vein Open Last Admin: 05/04/21 18:45 Dose: 10 ml Documented by: Terbutaline Sulfate (Terbutaline 1 Mg/Ml Sdv) 1 mg SUBCUT ONETIME ONE Stop: 05/05/21 00:49 Last Admin: 05/05/21 01:23 Dose: 1 mg Documented by: Vancomycin HCl (Pharmacy To Dose - Vancomycin) 1 dose .XX ASDIRECTED [facility] - Exam Urinary Catheter Total Time: 1Days 19Hours - Patient Data Lab Results Last 24 hrs: Laboratory Results - last 24 hr 05/05/21 05/05/21 05/05/21 Range/Units 20:35 21:36 22:27 WBC (5.0-10.0) 10^3/uL RBC (4.2-5.4) 10^6/uL Hgb (12.0-16.0) g/dL Hct (37.0-47.0) % MCV (80-100) fL MCH (27.0-34.0) pg MCHC (33.0-35.0) g/dL Plt Count (150-450) 10^3/uL Sodium (136-145) mmol/L Potassium (3.5-5.1) mmol/L Chloride (98-107) mmol/L Carbon Dioxide (21-32) mmol/L Anion Gap (7-13) mEq/L BUN (7-18) mg/dL Creatinine (0.55-1.02) mg/dL Est Cr Clr Drug Dosing mL/min Estimated GFR (MDRD) Glucose (70-99) mg/dL POC Glucose 288 H 270 H 193 H (70-99) mg/dL Calcium (8.5-10.1) mg/dL Phosphorus (2.6-4.7) mg/dL 05/06/21 05/06/21 05/06/21 Range/Units 02:07 04:41 05:40 WBC 5.5 (5.0-10.0) 10^3/uL RBC 4.27 (4.2-5.4) 10^6/uL Hgb 10.4 L D (12.0-16.0) g/dL Hct 31.3 L (37.0-47.0) % MCV 73.3 L (80-100) fL MCH 24.4 L (27.0-34.0) pg MCHC 33.2 (33.0-35.0) g/dL Plt Count 143 L D (150-450) 10^3/uL Sodium (136-145) mmol/L Potassium (3.5-5.1) mmol/L Chloride (98-107) mmol/L Carbon Dioxide (21-32) mmol/L Anion Gap (7-13) mEq/L BUN (7-18) mg/dL Creatinine (0.55-1.02) mg/dL Est Cr Clr Drug Dosing mL/min Estimated GFR (MDRD) Glucose (70-99) mg/dL POC Glucose 177 H 222 H (70-99) mg/dL Calcium (8.5-10.1) mg/dL Phosphorus (2.6-4.7) mg/dL 05/06/21 05/06/21 05/06/21 Range/Units 05:40 08:03 11:51 WBC (5.0-10.0) 10^3/uL RBC (4.2-5.4) 10^6/uL Hgb (12.0-16.0) g/dL Hct (37.0-47.0) % MCV (80-100) fL MCH (27.0-34.0) pg MCHC (33.0-35.0) g/dL Plt Count (150-450) 10^3/uL Sodium 142 (136-145) mmol/L Potassium 3.4 L (3.5-5.1) mmol/L Chloride 108 H (98-107) mmol/L Carbon Dioxide 21 (21-32) mmol/L Anion Gap 16.4 H (7-13) mEq/L BUN 36 H (7-18) mg/dL Creatinine 1.00 (0.55-1.02) mg/dL Est Cr Clr Drug Dosing 45.20 mL/min Estimated GFR (MDRD) 55 Glucose 254 H (70-99) mg/dL POC Glucose 260 H 191 H (70-99) mg/dL Calcium 7.7 L (8.5-10.1) mg/dL Phosphorus 2.8 (2.6-4.7) mg/dL 05/06/21 05/06/21 Range/Units 16:31 20:18 WBC (5.0-10.0) 10^3/uL RBC (4.2-5.4) 10^6/uL Hgb (12.0-16.0) g/dL Hct (37.0-47.0) % MCV (80-100) fL MCH (27.0-34.0) pg MCHC (33.0-35.0) g/dL Plt Count (150-450) 10^3/uL Sodium (136-145) mmol/L Potassium (3.5-5.1) mmol/L Chloride (98-107) mmol/L Carbon Dioxide (21-32) mmol/L Anion Gap (7-13) mEq/L BUN (7-18) mg/dL Creatinine (0.55-1.02) mg/dL Est Cr Clr Drug Dosing mL/min Estimated GFR (MDRD) Glucose (70-99) mg/dL POC Glucose 317 H 246 H (70-99) mg/dL Calcium (8.5-10.1) mg/dL Phosphorus (2.6-4.7) mg/dL Result Diagrams: 05/06/21 05:40 05/06/21 05:40 Lorenzo Results Last 24 hrs: Microbiology 05/04/21 17:45 Aerobic Blood Culture - Preliminary Blood - Arm, Right NO GROWTH AFTER 2 DAYS Anaerobic Blood Culture - Final 05/04/21 19:54 Urine Culture - Preliminary Urine, Catheterized 05/04/21 22:00 Aerobic Blood Culture - Preliminary Blood - Arm, Right NO GROWTH AFTER 1 DAY Anaerobic Blood Culture - Final Sepsis Event Note - Evaluation Sepsis Screening Result: No Definite Risk - Focused Exam Vital Signs: Vital Signs Temp Pulse Resp BP Pulse Ox 05/06/21 20:00 98.7 F 82 23 H 127/59 L 96 05/06/21 16:00 97.9 F 105 H 30 H 167/80 H 94 L 05/06/21 12:00 98.1 F 76 20 132/61 98 - Problem List Review Problem List Initiated/Reviewed/Updated: Yes - My Orders Last 24 Hours: My Active Orders 05/05/21 22:10 Melatonin 6 mg PO BEDTIME PRN 05/05/21 22:15 polyethylene glycoL 3350 [MiraLAX] 17 gm PO BID 05/06/21 17:15 Insulin Glarg,Human.Rec.Analog [LantUS] 15 unit SUBCUT BEDTIME 05/06/21 20:45 Furosemide [Lasix] 40 mg PO DAILY 05/06/21 21:00 Ciprofloxacin [Ciprofloxacin HCl] 500 mg PO BID Zolpidem [Ambien] 2.5 mg PO BEDTIME PRN 05/07/21 05:11 BASIC METABOLIC PANEL,BMP [CHEM] AM CBC W/O DIFF,HEMOGRAM [HEME] AM 05/08/21 05:11 BASIC METABOLIC PANEL,BMP [CHEM] AM CBC W/O DIFF,HEMOGRAM [HEME] AM 05/09/21 05:11 BASIC METABOLIC PANEL,BMP [CHEM] AM CBC W/O DIFF,HEMOGRAM [HEME] AM 05/10/21 05:11 BASIC METABOLIC PANEL,BMP [CHEM] AM CBC W/O DIFF,HEMOGRAM [HEME] AM - Assessment Assessment:: SUBJECTIVE: Improved lethargy this AM. Does not remember what brought her to hospital. Denies any symptoms of recent concern. Unable to recall her past medical history and current medications. I - Plan Plan:: SUBJECTIVE: Alert, oriented to place, person and time this morning. Pleasant and engages in conversation; does not remember circumstances of current hospitalization; mentions that she only takes "20 units of insulin three times daily" and "no other medication" at home. Home glucose in the past couple of weeks has been as high 700s. ROS otherwise negative for new findings. OBJECTIVE: Vitals normal. Heart, lung, abdomen exams unremarkable. Alert, oriented x3, motor strength 5/5 in all groups. Physical exam otherwise negative for concerning findings. I viewed lab and imaging results in chart. ASSESSMENT / PLAN: Coreen was admitted on 05/04 for an episode altered mentation (stupor) and hypotension with SBP in 50s requiring immediate intra-osseous access and norepi infusion. Was hospitalized 04/08- for general weakness and 02/16-03/17/21 for heart failure, NSTEMI and hyperglycemia. Acute encephalopathy. Improved by 05/05, resolved by 05/06. Severe sepsis (daughter's report of fever at home; RR and lactate elevated on admission). Septic shock ruled out on BP response to IV fluid infusion on 05/05. Albumin 25g IV on 05/05, IV fluid infusion continued and stopped on 05/06 on normalization of BP. Comm acq pneumonia of both lungs. Diagnosis supported by bilat infiltrates on CXR. MRSA nasal screen ordered 05/05; IV zosyn switched to oral cipro on 05/06. Complicated UTI. Urine culture showing G -ve bacilli; culture pending; on above abx. SHANTEL, resolved by 05/06. Likely pre-renal; Cr 2 on presentation <-- 0.7 in 03/2021. Acute hyperglycemia without ketosis in severely uncontrolled type 2 diabetic. Gluc improved then bladimir to high 500s on 05/05; insulin infusion continued on 05/05 and stopped on 05/06 with resumption of home lantus. Chronic diastolic heart failure. Home Lasix resumed 05/06. CAD, h/o stent to bypass graft in 02/2020. Severe peripheral artery disease, presence of stents. Concern for vulnerable adult. Despite recurrent hospitalization, she does not seem concerned about seriousness of her chronic illnesses and admits to medication non-compliance. Staff aware; she might need discussion of SNF placement. Lovenox subcu Full code; discussed with patient and daughter.
[2021-05-06] MEDS ORDERED: Insulin Glarg,Human.Rec.Analog 100 Unit/ML SUBCUT SCH (21:00)
[2021-05-06] MEDS ORDERED: Zolpidem 5 MG Tab PO PRN (21:00)
[2021-05-06] MEDS: Ciprofloxacin 500 MG Tab PO SCH (21:10)
[2021-05-07 07:42] LABS: ANION GAP 18.2 mEq/L (7-13); CHLORIDE,CL 107 mmol/L (98-107); SODIUM,NA 141 mmol/L (136-145)
[2021-05-07] MEDS: Insulin Lispro 100 Units/ML 3 ML Vial SUBCUT SCH ×4 (08:11→21:52)
[2021-05-07] MEDS: Polyethylene Glycol 3350 Powder 17 GM Packet PO SCH ×2 (09:26→21:55)
[2021-05-07] MEDS: Ciprofloxacin 500 MG Tab PO SCH ×2 (09:26→21:55)
[2021-05-07] MEDS: Furosemide 40 MG Tab PO SCH (09:26)
[2021-05-07] MEDS: Enoxaparin 40 MG/0.4 ML Syringe SUBCUT SCH (09:26)
[2021-05-07] MEDS: Acetaminophen 325 MG Tab PO PRN (15:13)
--- NOTE | 2021-05-07 15:36 | PCM.DCSUM1 ---
Discharge Summary - Hospital Course Free Text/Narrative:: feeling better no cp, no sob strength is improving duration of illness is days has been up in wheelchair - Discharge Data Discharge Disposition: Home, Self-Care 01 Condition: Serious - Referral to Home Health Primary Care Physician: PCP None - Patient Summary/Data Consults: Consultations 05/07/21 10:00 Consult to Occupational Therapy [OT Evaluation and Treatment] [CONS] Routine PT Evaluation and Treatment [CONS] Routine - Discharge Plan Home Medications: Home Meds Lisinopril 10 mg PO DAILY 05/25/15 [History] Clopidogrel Bisulfate [Plavix] 75 mg PO DAILY 09/12/20 [History] Zolpidem [Ambien] 5 mg PO BEDTIME PRN 02/18/21 [History] Ezetimibe [Zetia] 10 mg PO BEDTIME #30 tablet 03/17/21 [Rx] Ferrous Sulfate 325 mg PO DAILY #15 tablet 03/17/21 [Rx] Furosemide [Lasix] 40 mg PO DAILY #30 tablet 03/17/21 [Rx] Pantoprazole [ProTONIX] 40 mg PO ACBREAKFAST #30 tab.cr 03/17/21 [Rx] carvediloL [Coreg] 6.25 mg PO BIDMEALS #60 tablet 03/17/21 [Rx] Furosemide 10 mg PO DAILY 05/05/21 [History] Insulin Detemir [Levemir Flextouch] 40 units SQ QAM 05/05/21 [History] Insulin Glargine,Hum.Rec.Anlog [Basaglar Kwikpen U-100] 20 units SQ BEDTIME 05/05/21 [History] Insulin Lispro [HumaLOG] 2 unit SUBCUT TIDMEALS 05/05/21 [History] Insulin Lispro [Humalog] 2 units SQ TIDMEALS 05/05/21 [History] traZODone 50 mg PO BEDTIME 05/05/21 [History] Forms: ED Department Discharge Referrals: PCP,None [Primary Care Provider] - - Patient Data Vitals - Most Recent: Last Vital Signs Temp 98.0 F 05/07/21 12:00 Pulse 73 05/07/21 12:00 Resp 18 05/07/21 12:00 BP 158/78 H 05/07/21 12:00 Pulse Ox 100 05/07/21 12:00 Weight - Most Recent: 155 lb 11.2 oz I&O - Last 24 hours: Intake & Output 05/07/21 05/07/21 05/07/21 06:59 14:59 22:59 Intake Total 250 460 Output Total 1500 Balance -1250 460 Lab Results - Last 24 hrs: Laboratory Results - last 24 hr 05/05/21 05/06/21 05/06/21 Range/Units 16:19 16:31 20:18 WBC (5.0-10.0) 10^3/uL RBC (4.2-5.4) 10^6/uL Hgb (12.0-16.0) g/dL Hct (37.0-47.0) % MCV (80-100) fL MCH (27.0-34.0) pg MCHC (33.0-35.0) g/dL Plt Count (150-450) 10^3/uL Sodium (136-145) mmol/L Potassium (3.5-5.1) mmol/L Chloride (98-107) mmol/L Carbon Dioxide (21-32) mmol/L Anion Gap (7-13) mEq/L BUN (7-18) mg/dL Creatinine (0.55-1.02) mg/dL Est Cr Clr Drug Dosing mL/min Estimated GFR (MDRD) Glucose (70-99) mg/dL POC Glucose 317 H 246 H (70-99) mg/dL Calcium (8.5-10.1) mg/dL Procalcitonin 0.15 H ng/mL 05/07/21 05/07/21 05/07/21 Range/Units 02:19 07:10 07:10 WBC 6.2 (5.0-10.0) 10^3/uL RBC 4.96 (4.2-5.4) 10^6/uL Hgb 12.1 D (12.0-16.0) g/dL Hct 36.4 L (37.0-47.0) % MCV 73.4 L (80-100) fL MCH 24.4 L (27.0-34.0) pg MCHC 33.2 (33.0-35.0) g/dL Plt Count 112 L (150-450) 10^3/uL Sodium 141 (136-145) mmol/L Potassium 4.2 (3.5-5.1) mmol/L Chloride 107 (98-107) mmol/L Carbon Dioxide 20 L (21-32) mmol/L Anion Gap 18.2 H (7-13) mEq/L BUN 20 H (7-18) mg/dL Creatinine 0.68 (0.55-1.02) mg/dL Est Cr Clr Drug Dosing 66.48 mL/min Estimated GFR (MDRD) > 60 Glucose 311 H (70-99) mg/dL POC Glucose 169 H (70-99) mg/dL Calcium 8.4 L (8.5-10.1) mg/dL Procalcitonin ng/mL 05/07/21 05/07/21 Range/Units 07:54 11:39 WBC (5.0-10.0) 10^3/uL RBC (4.2-5.4) 10^6/uL Hgb (12.0-16.0) g/dL Hct (37.0-47.0) % MCV (80-100) fL MCH (27.0-34.0) pg MCHC (33.0-35.0) g/dL Plt Count (150-450) 10^3/uL Sodium (136-145) mmol/L Potassium (3.5-5.1) mmol/L Chloride (98-107) mmol/L Carbon Dioxide (21-32) mmol/L Anion Gap (7-13) mEq/L BUN (7-18) mg/dL Creatinine (0.55-1.02) mg/dL Est Cr Clr Drug Dosing mL/min Estimated GFR (MDRD) Glucose (70-99) mg/dL POC Glucose 339 H 280 H (70-99) mg/dL Calcium (8.5-10.1) mg/dL Procalcitonin ng/mL MIKEY Results - Last 24 hrs: Microbiology 05/04/21 19:54 Urine Culture - Final Urine, Catheterized Escherichia Coli 05/04/21 22:00 Aerobic Blood Culture - Preliminary Blood - Arm, Right NO GROWTH AFTER 2 DAYS Anaerobic Blood Culture - Final 05/04/21 17:45 Aerobic Blood Culture - Preliminary Blood - Arm, Right NO GROWTH AFTER 2 DAYS Anaerobic Blood Culture - Final Med Orders - Current: Current Medications Acetaminophen (Acetaminophen 325 Mg Tab) 650 mg PO Q4H PRN PRN Reason: Pain (mild 1-3 )/fever Last Admin: 05/07/21 15:13 Dose: 650 mg Documented by: Ciprofloxacin (Ciprofloxacin 500 Mg Tab) 500 mg PO BID [facility] Last Admin: 05/07/21 09:26 Dose: 500 mg Documented by: Dextrose/Water (50% Dextrose In Water 50 Ml Syringe) 50 ml IVPUSH Q15M PRN PRN Reason: Hypoglycemia Docusate Sodium (Docusate Sodium 100 Mg Cap) 100 mg PO DAILY PRN PRN Reason: Constipation Enoxaparin Sodium (Enoxaparin 40 Mg/0.4 Ml Syringe) 40 mg SUBCUT DAILY [facility] Last Admin: 05/07/21 09:26 Dose: 40 mg Documented by: Furosemide (Furosemide 40 Mg Tab) 40 mg PO DAILY [facility] Last Admin: 05/07/21 09:26 Dose: 40 mg Documented by: Glucagon (Glucagon,Human Recombinant 1 Mg Vial) 1 mg IM Q15M PRN PRN Reason: Hypoglycemia Insulin Glargine (Insulin Glarg,Human.Rec.Analog 100 Unit/Ml) 15 unit SUBCUT BEDTIME [facility] Last Admin: 05/06/21 17:43 Dose: 15 units Documented by: Insulin Human Lispro (Insulin Lispro 100 Units/Ml 3 Ml Vial) 0 unit SUBCUT WITHMEALSANDBED [facility]; Protocol Last Admin: 05/07/21 13:02 Dose: 9 units Documented by: Melatonin (Melatonin 3 Mg Tab) 6 mg PO BEDTIME PRN PRN Reason: Insomnia Last Admin: 05/05/21 22:22 Dose: 6 mg Documented by: Polyethylene Glycol (Polyethylene Glycol 3350 Powder 17 Gm Packet) 17 gm PO BID [facility] Last Admin: 05/07/21 09:26 Dose: 17 gm Documented by: Sodium Chloride (Sodium Chloride 0.9% 10 Ml Syringe) 10 ml FLUSH ASDIRECTED PRN PRN Reason: Keep Vein Open Last Admin: 05/05/21 19:28 Dose: 10 ml Documented by: Zolpidem Tartrate (Zolpidem 5 Mg Tab) 2.5 mg PO BEDTIME PRN PRN Reason: Insomnia Last Admin: 05/06/21 21:11 Dose: 2.5 mg Documented by: Discontinued Medications Dextrose/Water (50% Dextrose In Water 50 Ml Syringe) 50 ml IVPUSH Q15M PRN PRN Reason: Hypoglycemia Glucagon (Glucagon,Human Recombinant 1 Mg Vial) 1 mg IM Q15M PRN PRN Reason: Hypoglycemia Insulin Regular in 0.9 % NACL (Myxredlin In Ns 100 Unit/100 Ml) 100 unit in 100 mls @ 6.739 mls/hr IV TITRATE ERIN; Protocol Norepinephrine Bitartrate 4 mg (/ Dextrose/Water) 250 mls @ 22.5 mls/hr IV TITRATE ERIN; Protocol Last Titration: 05/05/21 16:21 Dose: 0 mcg/min, 0 mls/hr Documented by: Insulin Regular in 0.9 % NACL (Myxredlin In Ns 100 Unit/100 Ml) 100 unit in 100 mls @ 6.739 mls/hr IV TITRATE ERIN; Protocol Last Titration: 05/05/21 22:29 Dose: 0 units/kg/hr, 0 mls/hr Documented by: Ciprofloxacin/Dextrose 400 mg/ (Premix) 200 mls @ 200 mls/hr IV ONETIME ONE Stop: 05/04/21 21:21 Last Admin: 05/04/21 21:31 Dose: 200 mls/hr Documented by: Piperacillin Sod/Tazobactam (Sod 3.375 gm/ Sodium Chloride) 100 mls @ 200 mls/hr IV Q6H ERIN Last Infusion: 05/06/21 18:51 Dose: Infused Documented by: Vancomycin HCl 1.5 gm/ Premix 300 mls @ 200 mls/hr IV ONETIME ONE Stop: 05/05/21 02:59 Last Admin: 05/05/21 02:46 Dose: 200 mls/hr Documented by: Sodium Chloride (Normal Saline Advbag) Confirm Administered Dose 100 mls @ as directed .ROUTE .STK-MED ONE Stop: 05/05/21 01:58 Last Admin: 05/05/21 02:08 Dose: Not Given Documented by: Vancomycin HCl 1 gm/ Sodium (Chloride) 250 mls @ 166.667 mls/hr IV Q48H ERIN Sodium Chloride (Normal Saline) 1,000 mls @ 500 mls/hr IV ONETIME ONE Stop: 05/05/21 13:16 Last Admin: 05/05/21 11:30 Dose: 300 mls/hr Documented by: Sodium Chloride (Normal Saline) 1,000 mls @ 150 mls/hr IV ASDIRECTED ERIN Stop: 05/05/21 20:46 Last Admin: 05/05/21 15:24 Dose: 150 mls/hr Documented by: Albumin Human 50 gm/ Premix 200 mls @ 100 mls/hr IV NOW ONE Stop: 05/05/21 23:29 Last Admin: 05/05/21 22:02 Dose: 100 mls/hr Documented by: Sodium Chloride (Normal Saline) 1,000 mls @ 125 mls/hr IV ASDIRECTED [facility] Stop: 05/06/21 06:01 Sodium Chloride (Normal Saline) 1,000 mls @ 75 mls/hr IV ASDIRECTED [facility] Stop: 05/06/21 12:45 Last Admin: 05/06/21 04:06 Dose: 75 mls/hr Documented by: Insulin Glargine (Insulin Glarg,Human.Rec.Analog 100 Unit/Ml) 10 unit SUBCUT BEDTIME ERIN Last Admin: 05/05/21 22:21 Dose: 10 units Documented by: Insulin Human Lispro (Insulin Lispro 100 Units/Ml 3 Ml Vial) 10 unit SUBCUT ONETIME ONE Stop: 05/05/21 11:38 Last Admin: 05/05/21 12:02 Dose: 10 units Documented by: Lidocaine HCl (Lidocaine 2% 100 Mg/5 Ml Syringe) 20 mg IOSS ONETIME ONE Stop: 05/04/21 22:12 Last Admin: 05/04/21 23:45 Dose: 20 mg Documented by: Potassium Chloride (Potassium Chloride 10 Meq Tab.Er) 40 meq PO ONETIME ONE Stop: 05/06/21 11:55 Last Admin: 05/06/21 12:29 Dose: 40 meq Documented by: Sodium Chloride (Sodium Chloride 0.9% 10 Ml Syringe) 10 ml FLUSH ASDIRECTED PRN PRN Reason: Keep Vein Open Last Admin: 05/04/21 18:45 Dose: 10 ml Documented by: Terbutaline Sulfate (Terbutaline 1 Mg/Ml Sdv) 1 mg SUBCUT ONETIME ONE Stop: 05/05/21 00:49 Last Admin: 05/05/21 01:23 Dose: 1 mg Documented by: Vancomycin HCl (Pharmacy To Dose - Vancomycin) 1 dose .XX ASDIRECTED ERIN
--- NOTE | 2021-05-07 15:43 | PCM.PN ---
- General Info Date of Service: 05/07/21 Admission Dx/Problem (Free Text): Admission Diagnosis/Problem Admission Diagnosis/Problem Diabetic ketoacidosis Subjective Update: feeling better has been working with pt/ot no associated sob BSs are still high BP improved off pressors Functional Status: Reports: Pain Controlled, Tolerating Diet - Review of Systems Pulmonary: Denies: Shortness of Breath Cardiovascular: Denies: Chest Pain, Edema Gastrointestinal: Denies: Abdominal Pain Genitourinary: Denies: Dysuria Neurological: Denies: Confusion - Patient Data Vitals - Most Recent: Last Vital Signs Temp 98.0 F 05/07/21 12:00 Pulse 73 05/07/21 12:00 Resp 18 05/07/21 12:00 BP 158/78 H 05/07/21 12:00 Pulse Ox 100 05/07/21 12:00 Weight - Most Recent: 155 lb 11.2 oz I&O - Last 24 Hours: Intake & Output 05/07/21 05/07/21 05/07/21 06:59 14:59 22:59 Intake Total 250 460 Output Total 1500 Balance -1250 460 Lab Results Last 24 Hours: Laboratory Results - last 24 hr 05/05/21 05/06/21 05/06/21 Range/Units 16:19 16:31 20:18 WBC (5.0-10.0) 10^3/uL RBC (4.2-5.4) 10^6/uL Hgb (12.0-16.0) g/dL Hct (37.0-47.0) % MCV (80-100) fL MCH (27.0-34.0) pg MCHC (33.0-35.0) g/dL Plt Count (150-450) 10^3/uL Sodium (136-145) mmol/L Potassium (3.5-5.1) mmol/L Chloride (98-107) mmol/L Carbon Dioxide (21-32) mmol/L Anion Gap (7-13) mEq/L BUN (7-18) mg/dL Creatinine (0.55-1.02) mg/dL Est Cr Clr Drug Dosing mL/min Estimated GFR (MDRD) Glucose (70-99) mg/dL POC Glucose 317 H 246 H (70-99) mg/dL Calcium (8.5-10.1) mg/dL Procalcitonin 0.15 H ng/mL 05/07/21 05/07/21 05/07/21 Range/Units 02:19 07:10 07:10 WBC 6.2 (5.0-10.0) 10^3/uL RBC 4.96 (4.2-5.4) 10^6/uL Hgb 12.1 D (12.0-16.0) g/dL Hct 36.4 L (37.0-47.0) % MCV 73.4 L (80-100) fL MCH 24.4 L (27.0-34.0) pg MCHC 33.2 (33.0-35.0) g/dL Plt Count 112 L (150-450) 10^3/uL Sodium 141 (136-145) mmol/L Potassium 4.2 (3.5-5.1) mmol/L Chloride 107 (98-107) mmol/L Carbon Dioxide 20 L (21-32) mmol/L Anion Gap 18.2 H (7-13) mEq/L BUN 20 H (7-18) mg/dL Creatinine 0.68 (0.55-1.02) mg/dL Est Cr Clr Drug Dosing 66.48 mL/min Estimated GFR (MDRD) > 60 Glucose 311 H (70-99) mg/dL POC Glucose 169 H (70-99) mg/dL Calcium 8.4 L (8.5-10.1) mg/dL Procalcitonin ng/mL 05/07/21 05/07/21 Range/Units 07:54 11:39 WBC (5.0-10.0) 10^3/uL RBC (4.2-5.4) 10^6/uL Hgb (12.0-16.0) g/dL Hct (37.0-47.0) % MCV (80-100) fL MCH (27.0-34.0) pg MCHC (33.0-35.0) g/dL Plt Count (150-450) 10^3/uL Sodium (136-145) mmol/L Potassium (3.5-5.1) mmol/L Chloride (98-107) mmol/L Carbon Dioxide (21-32) mmol/L Anion Gap (7-13) mEq/L BUN (7-18) mg/dL Creatinine (0.55-1.02) mg/dL Est Cr Clr Drug Dosing mL/min Estimated GFR (MDRD) Glucose (70-99) mg/dL POC Glucose 339 H 280 H (70-99) mg/dL Calcium (8.5-10.1) mg/dL Procalcitonin ng/mL Lorenzo Results Last 24 Hours: Microbiology 05/04/21 19:54 Urine Culture - Final Urine, Catheterized Escherichia Coli 05/04/21 22:00 Aerobic Blood Culture - Preliminary Blood - Arm, Right NO GROWTH AFTER 2 DAYS Anaerobic Blood Culture - Final 05/04/21 17:45 Aerobic Blood Culture - Preliminary Blood - Arm, Right NO GROWTH AFTER 2 DAYS Anaerobic Blood Culture - Final Med Orders - Current: Current Medications Acetaminophen (Acetaminophen 325 Mg Tab) 650 mg PO Q4H PRN PRN Reason: Pain (mild 1-3 )/fever Last Admin: 05/07/21 15:13 Dose: 650 mg Documented by: Ciprofloxacin (Ciprofloxacin 500 Mg Tab) 500 mg PO BID [facility] Last Admin: 05/07/21 09:26 Dose: 500 mg Documented by: Dextrose/Water (50% Dextrose In Water 50 Ml Syringe) 50 ml IVPUSH Q15M PRN PRN Reason: Hypoglycemia Docusate Sodium (Docusate Sodium 100 Mg Cap) 100 mg PO DAILY PRN PRN Reason: Constipation Enoxaparin Sodium (Enoxaparin 40 Mg/0.4 Ml Syringe) 40 mg SUBCUT DAILY [facility] Last Admin: 05/07/21 09:26 Dose: 40 mg Documented by: Furosemide (Furosemide 40 Mg Tab) 40 mg PO DAILY [facility] Last Admin: 05/07/21 09:26 Dose: 40 mg Documented by: Glucagon (Glucagon,Human Recombinant 1 Mg Vial) 1 mg IM Q15M PRN PRN Reason: Hypoglycemia Insulin Glargine (Insulin Glarg,Human.Rec.Analog 100 Unit/Ml) 15 unit SUBCUT BEDTIME [facility] Last Admin: 05/06/21 17:43 Dose: 15 units Documented by: Insulin Human Lispro (Insulin Lispro 100 Units/Ml 3 Ml Vial) 0 unit SUBCUT WITHMEALSANDBED [facility]; Protocol Last Admin: 05/07/21 13:02 Dose: 9 units Documented by: Melatonin (Melatonin 3 Mg Tab) 6 mg PO BEDTIME PRN PRN Reason: Insomnia Last Admin: 05/05/21 22:22 Dose: 6 mg Documented by: Polyethylene Glycol (Polyethylene Glycol 3350 Powder 17 Gm Packet) 17 gm PO BID ERIN Last Admin: 05/07/21 09:26 Dose: 17 gm Documented by: Sodium Chloride (Sodium Chloride 0.9% 10 Ml Syringe) 10 ml FLUSH ASDIRECTED PRN PRN Reason: Keep Vein Open Last Admin: 05/05/21 19:28 Dose: 10 ml Documented by: Zolpidem Tartrate (Zolpidem 5 Mg Tab) 2.5 mg PO BEDTIME PRN PRN Reason: Insomnia Last Admin: 05/06/21 21:11 Dose: 2.5 mg Documented by: Discontinued Medications Dextrose/Water (50% Dextrose In Water 50 Ml Syringe) 50 ml IVPUSH Q15M PRN PRN Reason: Hypoglycemia Glucagon (Glucagon,Human Recombinant 1 Mg Vial) 1 mg IM Q15M PRN PRN Reason: Hypoglycemia Insulin Regular in 0.9 % NACL (Myxredlin In Ns 100 Unit/100 Ml) 100 unit in 100 mls @ 6.739 mls/hr IV TITRATE ERIN; Protocol Norepinephrine Bitartrate 4 mg (/ Dextrose/Water) 250 mls @ 22.5 mls/hr IV TITRATE ERIN; Protocol Last Titration: 05/05/21 16:21 Dose: 0 mcg/min, 0 mls/hr Documented by: Insulin Regular in 0.9 % NACL (Myxredlin In Ns 100 Unit/100 Ml) 100 unit in 100 mls @ 6.739 mls/hr IV TITRATE ERIN; Protocol Last Titration: 05/05/21 22:29 Dose: 0 units/kg/hr, 0 mls/hr Documented by: Ciprofloxacin/Dextrose 400 mg/ (Premix) 200 mls @ 200 mls/hr IV ONETIME ONE Stop: 05/04/21 21:21 Last Admin: 05/04/21 21:31 Dose: 200 mls/hr Documented by: Piperacillin Sod/Tazobactam (Sod 3.375 gm/ Sodium Chloride) 100 mls @ 200 mls/h r IV Q6H ERIN Last Infusion: 05/06/21 18:51 Dose: Infused Documented by: Vancomycin HCl 1.5 gm/ Premix 300 mls @ 200 mls/hr IV ONETIME ONE Stop: 05/05/21 02:59 Last Admin: 05/05/21 02:46 Dose: 200 mls/hr Documented by: Sodium Chloride (Normal Saline Advbag) Confirm Administered Dose 100 mls @ as directed .ROUTE .STK-MED ONE Stop: 05/05/21 01:58 Last Admin: 05/05/21 02:08 Dose: Not Given Documented by: Vancomycin HCl 1 gm/ Sodium (Chloride) 250 mls @ 166.667 mls/hr IV Q48H [facility] Sodium Chloride (Normal Saline) 1,000 mls @ 500 mls/hr IV ONETIME ONE Stop: 05/05/21 13:16 Last Admin: 05/05/21 11:30 Dose: 300 mls/hr Documented by: Sodium Chloride (Normal Saline) 1,000 mls @ 150 mls/hr IV ASDIRECTED [facility] Stop: 05/05/21 20:46 Last Admin: 05/05/21 15:24 Dose: 150 mls/hr Documented by: Albumin Human 50 gm/ Premix 200 mls @ 100 mls/hr IV NOW ONE Stop: 05/05/21 23:29 Last Admin: 05/05/21 22:02 Dose: 100 mls/hr Documented by: Sodium Chloride (Normal Saline) 1,000 mls @ 125 mls/hr IV ASDIRECTED [facility] Stop: 05/06/21 06:01 Sodium Chloride (Normal Saline) 1,000 mls @ 75 mls/hr IV ASDIRECTED [facility] Stop: 05/06/21 12:45 Last Admin: 05/06/21 04:06 Dose: 75 mls/hr Documented by: Insulin Glargine (Insulin Glarg,Human.Rec.Analog 100 Unit/Ml) 10 unit SUBCUT BEDTIME [facility] Last Admin: 05/05/21 22:21 Dose: 10 units Documented by: Insulin Human Lispro (Insulin Lispro 100 Units/Ml 3 Ml Vial) 10 unit SUBCUT ONETIME ONE Stop: 05/05/21 11:38 Last Admin: 05/05/21 12:02 Dose: 10 units Documented by: Lidocaine HCl (Lidocaine 2% 100 Mg/5 Ml Syringe) 20 mg IOSS ONETIME ONE Stop: 05/04/21 22:12 Last Admin: 05/04/21 23:45 Dose: 20 mg Documented by: Potassium Chloride (Potassium Chloride 10 Meq Tab.Er) 40 meq PO ONETIME ONE Stop: 05/06/21 11:55 Last Admin: 05/06/21 12:29 Dose: 40 meq Documented by: Sodium Chloride (Sodium Chloride 0.9% 10 Ml Syringe) 10 ml FLUSH ASDIRECTED PRN PRN Reason: Keep Vein Open Last Admin: 05/04/21 18:45 Dose: 10 ml Documented by: Terbutaline Sulfate (Terbutaline 1 Mg/Ml Sdv) 1 mg SUBCUT ONETIME ONE Stop: 05/05/21 00:49 Last Admin: 05/05/21 01:23 Dose: 1 mg Documented by: Vancomycin HCl (Pharmacy To Dose - Vancomycin) 1 dose .XX ASDIRECTED ERIN - Exam Urinary Catheter Total Time: 2Days 17Hours General: Alert, Oriented Lungs: Clear to Auscultation Cardiovascular: Regular Rate, Regular Rhythm GI/Abdominal Exam: Normal Bowel Sounds, Soft, Non-Tender Extremities: No Pedal Edema Skin: Warm, Dry Neurological: No New Focal Deficit Psy/Mental Status: Alert, Normal Affect, Normal Mood - Patient Data Lab Results Last 24 hrs: Laboratory Results - last 24 hr 05/05/21 05/06/21 05/06/21 Range/Units 16:19 16:31 20:18 WBC (5.0-10.0) 10^3/uL RBC (4.2-5.4) 10^6/uL Hgb (12.0-16.0) g/dL Hct (37.0-47.0) % MCV (80-100) fL MCH (27.0-34.0) pg MCHC (33.0-35.0) g/dL Plt Count (150-450) 10^3/uL Sodium (136-145) mmol/L Potassium (3.5-5.1) mmol/L Chloride (98-107) mmol/L Carbon Dioxide (21-32) mmol/L Anion Gap (7-13) mEq/L BUN (7-18) mg/dL Creatinine (0.55-1.02) mg/dL Est Cr Clr Drug Dosing mL/min Estimated GFR (MDRD) Glucose (70-99) mg/dL POC Glucose 317 H 246 H (70-99) mg/dL Calcium (8.5-10.1) mg/dL Procalcitonin 0.15 H ng/mL 05/07/21 05/07/21 05/07/21 Range/Units 02:19 07:10 07:10 WBC 6.2 (5.0-10.0) 10^3/uL RBC 4.96 (4.2-5.4) 10^6/uL Hgb 12.1 D (12.0-16.0) g/dL Hct 36.4 L (37.0-47.0) % MCV 73.4 L (80-100) fL MCH 24.4 L (27.0-34.0) pg MCHC 33.2 (33.0-35.0) g/dL Plt Count 112 L (150-450) 10^3/uL Sodium 141 (136-145) mmol/L Potassium 4.2 (3.5-5.1) mmol/L Chloride 107 (98-107) mmol/L Carbon Dioxide 20 L (21-32) mmol/L Anion Gap 18.2 H (7-13) mEq/L BUN 20 H (7-18) mg/dL Creatinine 0.68 (0.55-1.02) mg/dL Est Cr Clr Drug Dosing 66.48 mL/min Estimated GFR (MDRD) > 60 Glucose 311 H (70-99) mg/dL POC Glucose 169 H (70-99) mg/dL Calcium 8.4 L (8.5-10.1) mg/dL Procalcitonin ng/mL 05/07/21 05/07/21 Range/Units 07:54 11:39 WBC (5.0-10.0) 10^3/uL RBC (4.2-5.4) 10^6/uL Hgb (12.0-16.0) g/dL Hct (37.0-47.0) % MCV (80-100) fL MCH (27.0-34.0) pg MCHC (33.0-35.0) g/dL Plt Count (150-450) 10^3/uL Sodium (136-145) mmol/L Potassium (3.5-5.1) mmol/L Chloride (98-107) mmol/L Carbon Dioxide (21-32) mmol/L Anion Gap (7-13) mEq/L BUN (7-18) mg/dL Creatinine (0.55-1.02) mg/dL Est Cr Clr Drug Dosing mL/min Estimated GFR (MDRD) Glucose (70-99) mg/dL POC Glucose 339 H 280 H (70-99) mg/dL Calcium (8.5-10.1) mg/dL Procalcitonin ng/mL Result Diagrams: 05/07/21 07:10 05/07/21 07:10 Lorenzo Results Last 24 hrs: Microbiology 05/04/21 19:54 Urine Culture - Final Urine, Catheterized Escherichia Coli 05/04/21 22:00 Aerobic Blood Culture - Preliminary Blood - Arm, Right NO GROWTH AFTER 2 DAYS Anaerobic Blood Culture - Final 05/04/21 17:45 Aerobic Blood Culture - Preliminary Blood - Arm, Right NO GROWTH AFTER 2 DAYS Anaerobic Blood Culture - Final Sepsis Event Note - Evaluation Sepsis Screening Result: No Definite Risk - Focused Exam Vital Signs: Vital Signs Temp Pulse Resp BP Pulse Ox 05/07/21 12:00 98.0 F 73 18 158/78 H 100 05/07/21 08:00 97.8 F 75 18 163/82 H 100 05/07/21 04:00 97.4 F 75 26 H 150/83 H 96 - Problem List & Annotations (1) Congestive heart failure SNOMED Code(s): 34066329 Code(s): I50.9 - HEART FAILURE, UNSPECIFIED Status: Acute Priority: Medium Current Visit: No Onset Date: ~03/05/21 Qualifiers: Heart failure type: combined systolic and diastolic Heart failure chronicity: acute on chronic Qualified Code(s): I50.43 - Acute on chronic combined systolic (congestive) and diastolic (congestive) heart failure (2) DKA, type 2 SNOMED Code(s): 894410353, 907820117 Code(s): E11.10 - TYPE 2 DIABETES MELLITUS WITH KETOACIDOSIS WITHOUT COMA Status: Acute Current Visit: No Qualifiers: Diabetes mellitus complication detail: without coma Qualified Code(s): E11.10 - Type 2 diabetes mellitus with ketoacidosis without coma (3) Diabetes mellitus SNOMED Code(s): 35107551 Code(s): E11.9 - TYPE 2 DIABETES MELLITUS WITHOUT COMPLICATIONS Status: Acute Current Visit: No Qualifiers: Diabetes mellitus type: type 2 Diabetes mellitus complication status: without complication (4) Metabolic acidosis due to diabetes mellitus SNOMED Code(s): 946312515 Code(s): E11.69 - TYPE 2 DIABETES MELLITUS WITH OTHER SPECIFIED COMPLICATION; E87.2 - ACIDOSIS Status: Acute Current Visit: No (5) DKA (diabetic ketoacidosis) SNOMED Code(s): 413795432, 255254581 Code(s): E11.10 - TYPE 2 DIABETES MELLITUS WITH KETOACIDOSIS WITHOUT COMA Status: Chronic Current Visit: No Qualifiers: Diabetes mellitus type: type 2 Diabetes mellitus complication detail: without coma Qualified Code(s): E11.10 - Type 2 diabetes mellitus with ketoacidosis without coma (6) Unable to walk SNOMED Code(s): 124437234 Code(s): R26.2 - DIFFICULTY IN WALKING, NOT ELSEWHERE CLASSIFIED Status: Chronic Current Visit: No (7) Weakness SNOMED Code(s): 15262752 Code(s): R53.1 - WEAKNESS Status: Chronic Priority: High Current Visit: No Onset Date: ~03/05/21 Annotation/Comment:: non ambulitory sec to weakness and oa and neuropathy . also deconditioning. - Problem List Review Problem List Initiated/Reviewed/Updated: Yes - My Orders Last 24 Hours: My Active Orders 05/07/21 10:00 Consult to Occupational Therapy [OT Evaluation and Treatment] [CONS] Routine PT Evaluation and Treatment [CONS] Routine - Plan Plan:: h/o CAD, dm, chf with preserved EF, htn admitted with uncontrolled BS due to not using her insulin dx. with sepsis with septic shock due to uti, possible pneumonia septic shock with Severe hypotension this is most likely secondary to septic shock/severe sepsis secondary to urinary tract infection as well as multifocal pneumonia initially was treated with IVF and Levophed pressor resolved by now UTI Pneumonia, community acquired Blood cx: neg Urine cx: E coli pansensitive Treated with zosyna and vanc can discharge on PO cipro DM, DKA present on admission Uncontrolled on admission Was treated with insulin drip Now transitioned to glargine and supplemental insulin Hypoglycemia protocol as needed Acute kidney injury Resolved with hydration Chronic diastolic chf Resumed lasix Cad PAD Start asa Dvt prophylaxis with lovenox Working well with pt/ot Strength is improving Wants to be discharge home lives with family
[2021-05-07] MEDS: Insulin Glarg,Human.Rec.Analog 100 Unit/ML SUBCUT SCH (21:52)
[2021-05-07] MEDS: Melatonin 3 MG Tab PO PRN (23:08)
[2021-05-08 06:49] LABS: ANION GAP 14.6 mEq/L (7-13); CHLORIDE,CL 108 mmol/L (98-107); SODIUM,NA 143 mmol/L (136-145)
[2021-05-08] MEDS ORDERED: Aspirin 81 MG Tab.Chew PO SCH (08:00)
[2021-05-08] MEDS: Enoxaparin 40 MG/0.4 ML Syringe SUBCUT SCH (08:01)
[2021-05-08] MEDS: Furosemide 40 MG Tab PO SCH (08:01)
[2021-05-08] MEDS: Polyethylene Glycol 3350 Powder 17 GM Packet PO SCH (08:01)
[2021-05-08] MEDS: Ciprofloxacin 500 MG Tab PO SCH (08:01)
[2021-05-08] MEDS: Insulin Lispro 100 Units/ML 3 ML Vial SUBCUT SCH ×2 (08:04→12:37)
--- NOTE | 2021-05-08 12:36 | PCM.DCSUM1 ---
Discharge Summary - Hospital Course Free Text/Narrative:: h/o CAD, dm, chf with preserved EF, htn admitted with uncontrolled BS due to not using her insulin dx. with sepsis with septic shock due to uti, possible pneumonia septic shock with Severe hypotension this is most likely secondary to septic shock/severe sepsis secondary to urinary tract infection as well as multifocal pneumonia initially was treated with IVF and Levophed pressor resolved by now BP is elevated resume lisinopril and coreg UTI Pneumonia, community acquired Blood cx: neg Urine cx: E coli pansensitive Treated with zosyna and vanc can discharge on PO cipro DM, DKA present on admission Uncontrolled on admission Was treated with insulin drip Now transitioned to glargine and supplemental insulin follwo as out pt Acute kidney injury Resolved with hydration Chronic diastolic chf Resumed lasix Cad PAD Started asa Wants to be discharge home to live with family will have [facility] home care following Diagnosis: Stroke: No - Discharge Data Discharge Date: 05/08/21 Discharge Disposition: Home, Self-Care 01 Condition: Serious - Referral to Home Health Primary Care Physician: PCP None - Discharge Diagnosis/Problem(s) (1) Congestive heart failure SNOMED Code(s): 18455019 ICD Code: I50.9 - HEART FAILURE, UNSPECIFIED Status: Acute Priority: Medium Current Visit: No Onset Date: ~03/05/21 Qualifiers: Heart failure type: combined systolic and diastolic Heart failure chronicity: acute on chronic Qualified Code(s): I50.43 - Acute on chronic combined systolic (congestive) and diastolic (congestive) heart failure (2) DKA, type 2 SNOMED Code(s): 176858024, 124314672 ICD Code: E11.10 - TYPE 2 DIABETES MELLITUS WITH KETOACIDOSIS WITHOUT COMA Status: Acute Current Visit: No Qualifiers: Diabetes mellitus complication detail: without coma Qualified Code(s): E11.10 - Type 2 diabetes mellitus with ketoacidosis without coma (3) Diabetes mellitus SNOMED Code(s): 85575473 ICD Code: E11.9 - TYPE 2 DIABETES MELLITUS WITHOUT COMPLICATIONS Status: Acute Current Visit: No Qualifiers: Diabetes mellitus type: type 2 Diabetes mellitus complication status: without complication (4) Metabolic acidosis due to diabetes mellitus SNOMED Code(s): 149497126 ICD Code: E11.69 - TYPE 2 DIABETES MELLITUS WITH OTHER SPECIFIED COMPLICATION; E87.2 - ACIDOSIS Status: Acute Current Visit: No (5) DKA (diabetic ketoacidosis) SNOMED Code(s): 667557212, 369343030 ICD Code: E11.10 - TYPE 2 DIABETES MELLITUS WITH KETOACIDOSIS WITHOUT COMA Status: Chronic Current Visit: No Qualifiers: Diabetes mellitus type: type 2 Diabetes mellitus complication detail: without coma Qualified Code(s): E11.10 - Type 2 diabetes mellitus with ketoacidosis without coma (6) Unable to walk SNOMED Code(s): 368518016 ICD Code: R26.2 - DIFFICULTY IN WALKING, NOT ELSEWHERE CLASSIFIED Status: Chronic Current Visit: No (7) Weakness SNOMED Code(s): 43541306 ICD Code: R53.1 - WEAKNESS Status: Chronic Priority: High Current Visit: No Onset Date: ~03/05/21 Problem Details: non ambulitory sec to weakness and oa and neuropathy . also deconditioning. - Patient Summary/Data Consults: Consultations 05/07/21 10:00 Consult to Occupational Therapy [OT Evaluation and Treatment] [CONS] Routine PT Evaluation and Treatment [CONS] Routine - Discharge Plan *PRESCRIPTION DRUG MONITORING PROGRAM REVIEWED*: Not Applicable *COPY OF PRESCRIPTION DRUG MONITORING REPORT IN PATIENT STEFANO: Not Applicable Prescriptions/Med Rec: Aspirin [Adult Aspirin Regimen] 81 mg PO DAILY #30 tablet. Ciprofloxacin [Ciprofloxacin HCl] 500 mg PO BID #10 tablet Home Medications: Home Meds Lisinopril 10 mg PO DAILY 05/25/15 [History] Clopidogrel Bisulfate [Plavix] 75 mg PO DAILY 09/12/20 [History] Zolpidem [Ambien] 5 mg PO BEDTIME PRN 02/18/21 [History] Ezetimibe [Zetia] 10 mg PO BEDTIME #30 tablet 03/17/21 [Rx] Ferrous Sulfate 325 mg PO DAILY #15 tablet 03/17/21 [Rx] Furosemide [Lasix] 40 mg PO DAILY #30 tablet 03/17/21 [Rx] Pantoprazole [ProTONIX] 40 mg PO ACBREAKFAST #30 tab.cr 03/17/21 [Rx] carvediloL [Coreg] 6.25 mg PO BIDMEALS #60 tablet 03/17/21 [Rx] Insulin Glargine,Hum.Rec.Anlog [Shavonagllila Singh U-100] 20 units SQ BEDTIME 05/05/21 [History] Insulin Lispro [Humalog] 2 units SQ TIDMEALS 05/05/21 [History] traZODone 50 mg PO BEDTIME 05/05/21 [History] Aspirin [Adult Aspirin Regimen] 81 mg PO DAILY #30 tablet. 05/08/21 [Rx] Ciprofloxacin [Ciprofloxacin HCl] 500 mg PO BID #10 tablet 05/08/21 [Rx] Referrals: PCP,None [Primary Care Provider] - - Discharge Summary/Plan Comment DC Time >30 min.: Yes (d/w sw - home care) Total # of Minutes for Discharge Time: 35 min - General Info Date of Service: 05/08/21 - Review of Systems General: Reports: Weakness (improving). Denies: Fever Pulmonary: Denies: Shortness of Breath Cardiovascular: Denies: Chest Pain, Edema Neurological: Denies: Confusion - Patient Data Vitals - Most Recent: Last Vital Signs Temp 97.7 F 05/08/21 08:27 Pulse 89 05/08/21 08:27 Resp 20 05/08/21 08:27 BP 155/76 H 05/08/21 08:27 Pulse Ox 98 05/08/21 08:27 Weight - Most Recent: 155 lb 11.2 oz I&O - Last 24 hours: Intake & Output 05/07/21 05/08/21 05/08/21 22:59 06:59 14:59 Intake Total 240 240 800 Balance 240 240 800 Lab Results - Last 24 hrs: Laboratory Results - last 24 hr 05/07/21 05/07/21 05/08/21 Range/Units 16:35 20:15 06:05 WBC 5.5 (5.0-10.0) 10^3/uL RBC 4.76 (4.2-5.4) 10^6/uL Hgb 11.5 L (12.0-16.0) g/dL Hct 35.1 L (37.0-47.0) % MCV 73.7 L (80-100) fL MCH 24.2 L (27.0-34.0) pg MCHC 32.8 L (33.0-35.0) g/dL Plt Count 194 D (150-450) 10^3/uL Sodium (136-145) mmol/L Potassium (3.5-5.1) mmol/L Chloride (98-107) mmol/L Carbon Dioxide (21-32) mmol/L Anion Gap (7-13) mEq/L BUN (7-18) mg/dL Creatinine (0.55-1.02) mg/dL Est Cr Clr Drug Dosing mL/min Estimated GFR (MDRD) Glucose (70-99) mg/dL POC Glucose 281 H 271 H (70-99) mg/dL Calcium (8.5-10.1) mg/dL 05/08/21 05/08/21 05/08/21 Range/Units 06:05 08:00 11:51 WBC (5.0-10.0) 10^3/uL RBC (4.2-5.4) 10^6/uL Hgb (12.0-16.0) g/dL Hct (37.0-47.0) % MCV (80-100) fL MCH (27.0-34.0) pg MCHC (33.0-35.0) g/dL Plt Count (150-450) 10^3/uL Sodium 143 (136-145) mmol/L Potassium 3.6 (3.5-5.1) mmol/L Chloride 108 H (98-107) mmol/L Carbon Dioxide 24 (21-32) mmol/L Anion Gap 14.6 H (7-13) mEq/L BUN 20 H (7-18) mg/dL Creatinine 0.75 (0.55-1.02) mg/dL Est Cr Clr Drug Dosing 60.27 mL/min Estimated GFR (MDRD) > 60 Glucose 215 H (70-99) mg/dL POC Glucose 226 H 216 H (70-99) mg/dL Calcium 8.2 L (8.5-10.1) mg/dL MIKEY Results - Last 24 hrs: Microbiology 05/04/21 22:00 Aerobic Blood Culture - Preliminary Blood - Arm, Right NO GROWTH AFTER 3 DAYS Anaerobic Blood Culture - Final 05/04/21 17:45 Aerobic Blood Culture - Preliminary Blood - Arm, Right NO GROWTH AFTER 3 DAYS Anaerobic Blood Culture - Final 05/04/21 19:54 Urine Culture - Final Urine, Catheterized Escherichia Coli Med Orders - Current: Current Medications Acetaminophen (Acetaminophen 325 Mg Tab) 650 mg PO Q4H PRN PRN Reason: Pain (mild 1-3 )/fever Last Admin: 05/07/21 15:13 Dose: 650 mg Documented by: Aspirin (Aspirin 81 Mg Tab.Chew) 81 mg PO WITHBREAKFAST [facility] Last Admin: 05/08/21 08:01 Dose: 81 mg Documented by: Ciprofloxacin (Ciprofloxacin 500 Mg Tab) 500 mg PO BID [facility] Last Admin: 05/08/21 08:01 Dose: 500 mg Documented by: Dextrose/Water (50% Dextrose In Water 50 Ml Syringe) 50 ml IVPUSH Q15M PRN PRN Reason: Hypoglycemia Docusate Sodium (Docusate Sodium 100 Mg Cap) 100 mg PO DAILY PRN PRN Reason: Constipation Enoxaparin Sodium (Enoxaparin 40 Mg/0.4 Ml Syringe) 40 mg SUBCUT DAILY [facility] Last Admin: 05/08/21 08:01 Dose: 40 mg Documented by: Furosemide (Furosemide 40 Mg Tab) 40 mg PO DAILY [facility] Last Admin: 05/08/21 08:01 Dose: 40 mg Documented by: Glucagon (Glucagon,Human Recombinant 1 Mg Vial) 1 mg IM Q15M PRN PRN Reason: Hypoglycemia Insulin Glargine (Insulin Glarg,Human.Rec.Analog 100 Unit/Ml) 15 unit SUBCUT BEDTIME [facility] Last Admin: 05/07/21 21:52 Dose: 15 units Documented by: Insulin Human Lispro (Insulin Lispro 100 Units/Ml 3 Ml Vial) 0 unit SUBCUT WITHMEALSANDBED [facility]; Protocol Last Admin: 05/08/21 08:04 Dose: 6 units Documented by: Melatonin (Melatonin 3 Mg Tab) 6 mg PO BEDTIME PRN PRN Reason: Insomnia Last Admin: 05/07/21 23:08 Dose: 6 mg Documented by: Polyethylene Glycol (Polyethylene Glycol 3350 Powder 17 Gm Packet) 17 gm PO BID [facility] Last Admin: 05/08/21 08:01 Dose: 17 gm Documented by: Sodium Chloride (Sodium Chloride 0.9% 10 Ml Syringe) 10 ml FLUSH ASDIRECTED PRN PRN Reason: Keep Vein Open Last Admin: 05/05/21 19:28 Dose: 10 ml Documented by: Zolpidem Tartrate (Zolpidem 5 Mg Tab) 2.5 mg PO BEDTIME PRN PRN Reason: Insomnia Last Admin: 05/06/21 21:11 Dose: 2.5 mg Documented by: Discontinued Medications Dextrose/Water (50% Dextrose In Water 50 Ml Syringe) 50 ml IVPUSH Q15M PRN PRN Reason: Hypoglycemia Glucagon (Glucagon,Human Recombinant 1 Mg Vial) 1 mg IM Q15M PRN PRN Reason: Hypoglycemia Insulin Regular in 0.9 % NACL (Myxredlin In Ns 100 Unit/100 Ml) 100 unit in 100 mls @ 6.739 mls/hr IV TITRATE ERIN; Protocol Norepinephrine Bitartrate 4 mg (/ Dextrose/Water) 250 mls @ 22.5 mls/hr IV TITRATE ERIN; Protocol Last Titration: 05/05/21 16:21 Dose: 0 mcg/min, 0 mls/hr Documented by: Insulin Regular in 0.9 % NACL (Myxredlin In Ns 100 Unit/100 Ml) 100 unit in 100 mls @ 6.739 mls/hr IV TITRATE ERIN; Protocol Last Titration: 05/05/21 22:29 Dose: 0 units/kg/hr, 0 mls/hr Documented by: Ciprofloxacin/Dextrose 400 mg/ (Premix) 200 mls @ 200 mls/hr IV ONETIME ONE Stop: 05/04/21 21:21 Last Admin: 05/04/21 21:31 Dose: 200 mls/hr Documented by: Piperacillin Sod/Tazobactam (Sod 3.375 gm/ Sodium Chloride) 100 mls @ 200 mls/hr IV Q6H ERIN Last Infusion: 05/06/21 18:51 Dose: Infused Documented by: Vancomycin HCl 1.5 gm/ Premix 300 mls @ 200 mls/hr IV ONETIME ONE Stop: 05/05/21 02:59 Last Admin: 05/05/21 02:46 Dose: 200 mls/hr Documented by: Sodium Chloride (Normal Saline Advbag) Confirm Administered Dose 100 mls @ as directed .ROUTE .STK-MED ONE Stop: 05/05/21 01:58 Last Admin: 05/05/21 02:08 Dose: Not Given Documented by: Vancomycin HCl 1 gm/ Sodium (Chloride) 250 mls @ 166.667 mls/hr IV Q48H ERIN Sodium Chloride (Normal Saline) 1,000 mls @ 500 mls/hr IV ONETIME ONE Stop: 05/05/21 13:16 Last Admin: 05/05/21 11:30 Dose: 300 mls/hr Documented by: Sodium Chloride (Normal Saline) 1,000 mls @ 150 mls/hr IV ASDIRECTED ERIN Stop: 05/05/21 20:46 Last Admin: 05/05/21 15:24 Dose: 150 mls/hr Documented by: Albumin Human 50 gm/ Premix 200 mls @ 100 mls/hr IV NOW ONE Stop: 05/05/21 23:29 Last Admin: 05/05/21 22:02 Dose: 100 mls/hr Documented by: Sodium Chloride (Normal Saline) 1,000 mls @ 125 mls/hr IV ASDIRECTED ERIN Stop: 05/06/21 06:01 Sodium Chloride (Normal Saline) 1,000 mls @ 75 mls/hr IV ASDIRECTED ERIN Stop: 05/06/21 12:45 Last Admin: 05/06/21 04:06 Dose: 75 mls/hr Documented by: Insulin Glargine (Insulin Glarg,Human.Rec.Analog 100 Unit/Ml) 10 unit SUBCUT BEDTIME ERIN Last Admin: 05/05/21 22:21 Dose: 10 units Documented by: Insulin Human Lispro (Insulin Lispro 100 Units/Ml 3 Ml Vial) 10 unit SUBCUT ONETIME ONE Stop: 05/05/21 11:38 Last Admin: 05/05/21 12:02 Dose: 10 units Documented by: Lidocaine HCl (Lidocaine 2% 100 Mg/5 Ml Syringe) 20 mg IOSS ONETIME ONE Stop: 05/04/21 22:12 Last Admin: 05/04/21 23:45 Dose: 20 mg Documented by: Potassium Chloride (Potassium Chloride 10 Meq Tab.Er) 40 meq PO ONETIME ONE Stop: 05/06/21 11:55 Last Admin: 05/06/21 12:29 Dose: 40 meq Documented by: Sodium Chloride (Sodium Chloride 0.9% 10 Ml Syringe) 10 ml FLUSH ASDIRECTED PRN PRN Reason: Keep Vein Open Last Admin: 05/04/21 18:45 Dose: 10 ml Documented by: Terbutaline Sulfate (Terbutaline 1 Mg/Ml Sdv) 1 mg SUBCUT ONETIME ONE Stop: 05/05/21 00:49 Last Admin: 05/05/21 01:23 Dose: 1 mg Documented by: Vancomycin HCl (Pharmacy To Dose - Vancomycin) 1 dose .XX ASDIRECTED ERIN - Exam General: Reports: Alert, Oriented Lungs: Reports: Clear to Auscultation Cardiovascular: Reports: Regular Rate, Regular Rhythm Extremities: No Pedal Edema
[2021-05-08 13:27] VITALS: BP 142/74; PULSE 86
== END 2021-05-08 14:20 | disposition home or self-care (01) | DRG 871 ==
LOC: DL.ED 17:17 → DL.MS 21:52
PROVIDERS: ADMIT Internal Medicine Nephrology; ATTEND Internal Medicine
DX: A41.51 Sepsis due to Escherichia coli [E. coli] (principal); E11.10 Type 2 diabetes mellitus with ketoacidosis without coma; R65.21 Severe sepsis with septic shock; J18.9 Pneumonia, unspecified organism; N17.9 Acute kidney failure, unspecified; I50.32 Chronic diastolic (congestive) heart failure; J44.0 Chronic obstructive pulmonary disease with (acute) lower respiratory infection; G93.40 Encephalopathy, unspecified; Z20.822 Contact with and (suspected) exposure to COVID-19; A41.89 Other specified sepsis; I25.10 Atherosclerotic heart disease of native coronary artery without angina pectoris; I11.0 Hypertensive heart disease with heart failure; K21.9 Gastro-esophageal reflux disease without esophagitis; F41.9 Anxiety disorder, unspecified; E11.51 Type 2 diabetes mellitus with diabetic peripheral angiopathy without gangrene; I73.9 Peripheral vascular disease, unspecified; Z88.0 Allergy status to penicillin; Z88.8 Allergy status to other drugs, medicaments and biological substances; Z79.82 Long term (current) use of aspirin; Z79.4 Long term (current) use of insulin; I25.2 Old myocardial infarction; Z86.73 Personal history of transient ischemic attack (TIA), and cerebral infarction without residual deficits; Z90.49 Acquired absence of other specified parts of digestive tract; Z90.710 Acquired absence of both cervix and uterus
CPT/HCPCS: 36415; 51702; 71045; 80048; 80053; 80305-QW; 80307; 81001; 82009; 82803; 82947; 83605; 83735; 83880; 84100; 84145; 84484; 85025; 85027; 87040; 87077; 87086; 87186; 87804; 93005; 96365; 96366; 96368; 97161-GP; 97165-GO; 99285-25; A9270-GY; J0744; J1650; J1815-GY; J2543; J3105; J3370; J7030; J7060; P9047; U0002

== ENCOUNTER 2021-09-08 15:09 | Emergency (ER) | payer MEDICARE, BC ==
[2021-09-08] MEDS ORDERED: Sodium Chloride 0.9% 10 ML Syringe FLUSH PRN (15:29)
[2021-09-08] MEDS ORDERED: Sodium Chloride 0.9% 1,000 ML IV ONE (15:30)
[2021-09-08] MEDS ORDERED: Nystatin Crm 15 GM Tube TOP ONE (15:37)
[2021-09-08 15:56] VITALS: BP 89/58; PULSE 85
[2021-09-08 16:42] LABS: ANION GAP 31.6 mEq/L (7-13)
[2021-09-08] MEDS ORDERED: Glucagon,Human Recombinant 1 MG Vial IM PRN (17:07)
[2021-09-08] MEDS ORDERED: Insulin Regular, Human 100 Units/ML 3 ML Vial IV ONE (17:07)
[2021-09-08] MEDS ORDERED: 50% Dextrose in Water 50 ML Syringe IVPUSH PRN (17:07)
== END 2021-09-08 19:00 | disposition home or self-care (01) ==
LOC: DL.ED 15:09
DX: E11.65 Type 2 diabetes mellitus with hyperglycemia (principal); L98.9 Disorder of the skin and subcutaneous tissue, unspecified; I11.0 Hypertensive heart disease with heart failure; I50.9 Heart failure, unspecified; I25.2 Old myocardial infarction; J44.9 Chronic obstructive pulmonary disease, unspecified; K21.9 Gastro-esophageal reflux disease without esophagitis; Z86.73 Personal history of transient ischemic attack (TIA), and cerebral infarction without residual deficits; Z90.49 Acquired absence of other specified parts of digestive tract; Z90.710 Acquired absence of both cervix and uterus; Z79.899 Other long term (current) drug therapy; Z79.4 Long term (current) use of insulin; Z79.82 Long term (current) use of aspirin; Z88.0 Allergy status to penicillin; Z88.8 Allergy status to other drugs, medicaments and biological substances; Z20.822 Contact with and (suspected) exposure to COVID-19
CPT/HCPCS: 36415; 80053; 82947; 83605; 83880; 85025; 86140; 87040; 99284; A9270-GY; J1815-GY; J7030; U0002

== ENCOUNTER 2021-10-09 04:19 | Inpatient (IN) | payer MEDICARE, BC ==
[2021-10-09 04:57] LABS: ANION GAP 12.4 mEq/L (7-13); CHLORIDE,CL 102 mmol/L (98-107); SODIUM,NA 135 mmol/L (136-145)
[2021-10-09 05:03] LABS: ESTIMATED GFR 40
[2021-10-09] MEDS ORDERED: Iopamidol 612 MG/ML 100 ML Bottle IVPUSH ONE (05:07)
[2021-10-09 05:09] LABS: MDMA (ECSTASY), URINE NEGATIVE (NEGATIVE); METHADONE,URINE NEGATIVE (NEGATIVE); METHAMPHETAMINES,URINE NEGATIVE (NEGATIVE)
[2021-10-09 05:10] LABS: AMPHETAMINES,URINE NEGATIVE (NEGATIVE); BARBITURATES,URINE NEGATIVE (NEGATIVE); BENZODIAZEPINE,URINE NEGATIVE (NEGATIVE); OPIATES,URINE NEGATIVE (NEGATIVE); OXYCODONE,URINE NEGATIVE (NEGATIVE); PHENCYCLIDINE,URINE NEGATIVE (NEGATIVE); TCA,URINE NEGATIVE (NEGATIVE)
[2021-10-09] MEDS ORDERED: 50% Dextrose in Water 50 ML Syringe IVPUSH ONE ×3 (05:16→07:05)
[2021-10-09] MEDS ORDERED: 50% Dextrose in Water 50 ML Syringe ONE (05:17)
[2021-10-09] MEDS ORDERED: Sodium Chloride 0.9% 500 ML IV ONE (05:36)
[2021-10-09 05:55] LABS: CORONAVIRUS COVID-19 NAA NEGATIVE (NEGATIVE)
[2021-10-09] MEDS ORDERED: cefTRIAXone 1 GM in Sodium Chloride 0.9% 50 ML IV ONE (06:15)
[2021-10-09] MEDS ORDERED: Dextrose 5%-0.9% NaCl 1,000 ML IV SCH ×2 (06:30→07:45)
[2021-10-09] MEDS ORDERED: Ondansetron 4 MG/2 ML SDV IVPUSH PRN (07:53)
[2021-10-09] MEDS ORDERED: Docusate Sodium 100 MG Cap PO PRN (07:53)
[2021-10-09] MEDS ORDERED: Acetaminophen 325 MG Tab PO PRN (07:53)
[2021-10-09] MEDS ORDERED: Polyethylene Glycol 3350 Powder 17 GM Packet PO PRN (07:53)
[2021-10-09] MEDS ORDERED: 50% Dextrose in Water 50 ML Syringe IVPUSH PRN (07:53)
[2021-10-09] MEDS ORDERED: Dextrose 5%-0.45% NaCl 1,000 ML IV SCH (08:00)
[2021-10-09] MEDS: Acetaminophen/HYDROcodone 325-5 MG Tab PO PRN ×3 (09:46→22:48)
[2021-10-09] MEDS: Potassium Chloride 10 MEQ Tab.ER PO SCH ×2 (09:46→17:55)
[2021-10-09] MEDS: Enoxaparin 40 MG/0.4 ML Syringe SUBCUT SCH (09:47)
[2021-10-09] MEDS ORDERED: Meropenem 1 GM in Sodium Chloride 0.9% 100 ML IV ONE (13:30)
[2021-10-09] MEDS ORDERED: Glucose Gel 15 GM in 37.5 GM Tube PO PRN (13:53)
[2021-10-09] MEDS ORDERED: Nitroglycerin 0.4 MG Tab.SL SL SCH (14:00)
[2021-10-09] MEDS: Aspirin 81 MG Tab.EC PO SCH (14:22)
[2021-10-09] MEDS: Furosemide 20 MG Tab PO SCH (14:27)
[2021-10-09 14:57] LABS: BASE EXCESS VENOUS -4.4 mmol/l ((-2)-(+3)); BICARBONATE,VENOUS 20 mmol/l (19-25); O2 DELIVERY DEVICE ROOM AIR; O2 SATURATION VENOUS 73.5 % (60-80); PCO2 VENOUS 35 mmHg (41-51); PH,VENOUS 7.37 (7.31-7.41); PO2 VENOUS 48 mmHg (35-42)
[2021-10-09 15:11] LABS: O2 FLOW RATE 0
[2021-10-09] MEDS ORDERED: Sodium Chloride 0.9% 1,000 ML IV SCH (15:15)
[2021-10-09] MEDS: Carvedilol 3.125 MG Tab PO SCH (17:54)
[2021-10-09] MEDS ORDERED: Potassium Chloride 10 MEQ Tab.ER PO SCH (18:00)
[2021-10-09] MEDS: cefTRIAXone 2 GM in Sodium Chloride 0.9% 100 ML IV SCH (22:19)
[2021-10-10] MEDS: Pantoprazole 40 MG Tab.CR PO SCH (06:24)
[2021-10-10 07:36] LABS: ANION GAP 17.2 mEq/L (7-13)
[2021-10-10] MEDS: Potassium Chloride 10 MEQ Tab.ER PO SCH ×2 (08:01→18:27)
[2021-10-10] MEDS: Furosemide 20 MG Tab PO SCH ×2 (08:01→14:32)
[2021-10-10] MEDS: Aspirin 81 MG Tab.EC PO SCH (08:01)
[2021-10-10] MEDS: Clopidogrel 75 MG Tab PO SCH (08:02)
[2021-10-10] MEDS: Lisinopril 10 MG Tab PO SCH (08:03)
[2021-10-10] MEDS: Carvedilol 3.125 MG Tab PO SCH ×2 (08:03→18:30)
[2021-10-10] MEDS: Ascorbic Acid 500 MG Tab PO SCH (08:04)
[2021-10-10] MEDS: Enoxaparin 40 MG/0.4 ML Syringe SUBCUT SCH (08:05)
[2021-10-10] MEDS ORDERED: Glucagon,Human Recombinant 1 MG Vial IM PRN ×5 (10:17→23:44)
[2021-10-10] MEDS ORDERED: 50% Dextrose in Water 50 ML Syringe IVPUSH PRN ×4 (10:17→23:44)
[2021-10-10] MEDS: Insulin Glarg,Human.Rec.Analog 100 Unit/ML SUBCUT SCH (10:49)
[2021-10-10] MEDS ORDERED: Insulin Regular, Human 100 Units/ML 3 ML Vial IV ONE (17:02)
[2021-10-10] MEDS: Acetaminophen/HYDROcodone 325-5 MG Tab PO PRN ×2 (18:26→22:20)
[2021-10-10] MEDS ORDERED: Insulin Regular, Human 100 Units/ML 3 ML Vial SUBCUT ONE (18:38)
[2021-10-10] MEDS ORDERED: Sodium Chloride 0.9% 1,000 ML IV ONE (18:38)
[2021-10-10 19:21] LABS: O2 DELIVERY DEVICE ROOM AIR
[2021-10-10 19:26] LABS: PH,VENOUS 7.39 (7.31-7.41)
[2021-10-10 19:27] LABS: BASE EXCESS VENOUS -6.4 mmol/l ((-2)-(+3)); BICARBONATE,VENOUS 17 mmol/l (19-25); O2 SATURATION VENOUS 124 % (60-80); PCO2 VENOUS 29 mmHg (41-51); PO2 VENOUS 124 mmHg (35-42)
[2021-10-10 19:50] LABS: ANION GAP 15.7 mEq/L (7-13)
[2021-10-10] MEDS: cefTRIAXone 2 GM in Sodium Chloride 0.9% 100 ML IV SCH (21:02)
[2021-10-10] MEDS: Ezetimibe 10 MG Tab PO SCH (21:09)
[2021-10-10] MEDS ORDERED: Insulin Lispro 100 Units/ML 3 ML Vial SUBCUT ONE (23:44)
[2021-10-11] MEDS ORDERED: Glucagon,Human Recombinant 1 MG Vial IM PRN (00:07)
[2021-10-11] MEDS ORDERED: Insulin Lispro 100 Units/ML 3 ML Vial SUBCUT ONE (00:08)
[2021-10-11] MEDS: HYDROmorphone 0.5 MG/0.5 ML Syringe IVPUSH PRN ×2 (02:50→17:38)
[2021-10-11] MEDS: Pantoprazole 40 MG Tab.CR PO SCH (05:20)
[2021-10-11] MEDS: Acetaminophen/HYDROcodone 325-5 MG Tab PO PRN ×4 (05:20→20:47)
[2021-10-11 06:56] LABS: ANION GAP 13.4 mEq/L (7-13)
[2021-10-11] MEDS: Ascorbic Acid 500 MG Tab PO SCH (09:00)
[2021-10-11] MEDS: Potassium Chloride 10 MEQ Tab.ER PO SCH ×2 (09:01→17:28)
[2021-10-11] MEDS: Carvedilol 3.125 MG Tab PO SCH ×2 (09:01→17:29)
[2021-10-11] MEDS: Aspirin 81 MG Tab.EC PO SCH (09:02)
[2021-10-11] MEDS: Clopidogrel 75 MG Tab PO SCH (09:02)
[2021-10-11] MEDS: Lisinopril 10 MG Tab PO SCH (09:02)
[2021-10-11] MEDS: Furosemide 20 MG Tab PO SCH ×2 (09:02→14:01)
[2021-10-11] MEDS: Insulin Lispro 100 Units/ML 3 ML Vial SUBCUT SCH ×3 (09:03→17:31)
[2021-10-11] MEDS: Enoxaparin 40 MG/0.4 ML Syringe SUBCUT SCH (09:03)
[2021-10-11] MEDS: Insulin Glarg,Human.Rec.Analog 100 Unit/ML SUBCUT SCH (09:07)
[2021-10-11] MEDS ORDERED: Witch Hazel Medicated Pads 100/Jar TOP PRN (16:11)
[2021-10-11] MEDS: cefTRIAXone 2 GM in Sodium Chloride 0.9% 100 ML IV SCH (20:01)
[2021-10-11] MEDS: Sodium Chloride 0.9% 10 ML Syringe FLUSH PRN ×2 (20:06→20:34)
[2021-10-11] MEDS: Melatonin 3 MG Tab PO PRN (20:12)
[2021-10-11] MEDS: Ezetimibe 10 MG Tab PO SCH (20:12)
[2021-10-11] MEDS: Temazepam 15 MG Cap PO PRN (20:38)
[2021-10-12] MEDS: Pantoprazole 40 MG Tab.CR PO SCH (05:12)
[2021-10-12] MEDS: HYDROmorphone 0.5 MG/0.5 ML Syringe IVPUSH PRN ×4 (05:14→19:54)
[2021-10-12] MEDS: Sodium Chloride 0.9% 10 ML Syringe FLUSH PRN ×4 (05:14→19:56)
[2021-10-12] MEDS: Insulin Lispro 100 Units/ML 3 ML Vial SUBCUT SCH ×3 (08:07→17:17)
[2021-10-12] MEDS: Carvedilol 3.125 MG Tab PO SCH ×2 (08:11→17:15)
[2021-10-12] MEDS: Potassium Chloride 10 MEQ Tab.ER PO SCH ×2 (08:13→17:16)
[2021-10-12] MEDS: Aspirin 81 MG Tab.EC PO SCH (08:13)
[2021-10-12] MEDS: Furosemide 20 MG Tab PO SCH ×2 (08:13→13:58)
[2021-10-12] MEDS: Ascorbic Acid 500 MG Tab PO SCH ×2 (08:14→10:45)
[2021-10-12] MEDS: Acetaminophen/HYDROcodone 325-5 MG Tab PO PRN ×3 (08:14→18:18)
[2021-10-12] MEDS: Clopidogrel 75 MG Tab PO SCH (08:16)
[2021-10-12] MEDS: Insulin Glarg,Human.Rec.Analog 100 Unit/ML SUBCUT SCH (08:16)
[2021-10-12] MEDS: Lisinopril 10 MG Tab PO SCH (08:16)
[2021-10-12] MEDS: Enoxaparin 40 MG/0.4 ML Syringe SUBCUT SCH (08:16)
[2021-10-12 09:53] LABS: ANION GAP 12.3 mEq/L (7-13); CHLORIDE,CL 107 mmol/L (98-107); SODIUM,NA 137 mmol/L (136-145)
[2021-10-12 09:55] LABS: ESTIMATED GFR > 60
[2021-10-12] MEDS: cefTRIAXone 2 GM in Sodium Chloride 0.9% 100 ML IV SCH (19:55)
[2021-10-12] MEDS: Ezetimibe 10 MG Tab PO SCH (21:16)
[2021-10-12] MEDS: Temazepam 15 MG Cap PO PRN (21:16)
[2021-10-13] MEDS: Acetaminophen/HYDROcodone 325-5 MG Tab PO PRN ×4 (01:14→22:17)
[2021-10-13] MEDS: Pantoprazole 40 MG Tab.CR PO SCH (05:31)
[2021-10-13 07:06] LABS: ANION GAP 11.1 mEq/L (7-13); CHLORIDE,CL 109 mmol/L (98-107); SODIUM,NA 142 mmol/L (136-145)
[2021-10-13 07:19] LABS: ESTIMATED GFR > 60
[2021-10-13] MEDS: Enoxaparin 40 MG/0.4 ML Syringe SUBCUT SCH (09:42)
[2021-10-13] MEDS: Lisinopril 10 MG Tab PO SCH (09:43)
[2021-10-13] MEDS: Aspirin 81 MG Tab.EC PO SCH (09:43)
[2021-10-13] MEDS: Ascorbic Acid 500 MG Tab PO SCH (09:43)
[2021-10-13] MEDS: Carvedilol 3.125 MG Tab PO SCH ×2 (09:46→18:25)
[2021-10-13] MEDS: Potassium Chloride 10 MEQ Tab.ER PO SCH ×2 (09:46→18:26)
[2021-10-13] MEDS: Furosemide 20 MG Tab PO SCH ×2 (09:46→14:50)
[2021-10-13] MEDS: Clopidogrel 75 MG Tab PO SCH (09:47)
[2021-10-13] MEDS: Insulin Lispro 100 Units/ML 3 ML Vial SUBCUT SCH ×3 (09:52→17:20)
[2021-10-13] MEDS: Insulin Glarg,Human.Rec.Analog 100 Unit/ML SUBCUT SCH (09:53)
[2021-10-13] MEDS: HYDROmorphone 0.5 MG/0.5 ML Syringe IVPUSH PRN ×2 (09:58→14:50)
[2021-10-13] MEDS: Sodium Chloride 0.9% 10 ML Syringe FLUSH PRN ×2 (19:56→20:23)
[2021-10-13] MEDS: cefTRIAXone 2 GM in Sodium Chloride 0.9% 100 ML IV SCH (19:57)
[2021-10-13] MEDS: Ezetimibe 10 MG Tab PO SCH (22:17)
[2021-10-13] MEDS: Melatonin 3 MG Tab PO PRN (22:19)
[2021-10-14] MEDS: HYDROmorphone 0.5 MG/0.5 ML Syringe IVPUSH PRN (01:08)
[2021-10-14] MEDS: Sodium Chloride 0.9% 10 ML Syringe FLUSH PRN (01:09)
[2021-10-14] MEDS: Pantoprazole 40 MG Tab.CR PO SCH (05:57)
[2021-10-14] MEDS: Acetaminophen/HYDROcodone 325-5 MG Tab PO PRN ×4 (05:58→22:46)
[2021-10-14 06:44] LABS: ANION GAP 10.4 mEq/L (7-13); CHLORIDE,CL 106 mmol/L (98-107); SODIUM,NA 141 mmol/L (136-145)
[2021-10-14 06:53] LABS: ESTIMATED GFR > 60
[2021-10-14] MEDS: Insulin Lispro 100 Units/ML 3 ML Vial SUBCUT SCH ×3 (07:22→17:19)
[2021-10-14] MEDS: Potassium Chloride 10 MEQ Tab.ER PO SCH ×2 (09:08→17:20)
[2021-10-14] MEDS: Ascorbic Acid 500 MG Tab PO SCH (09:08)
[2021-10-14] MEDS: Furosemide 20 MG Tab PO SCH ×2 (09:09→15:32)
[2021-10-14] MEDS: Carvedilol 3.125 MG Tab PO SCH ×2 (09:10→17:20)
[2021-10-14] MEDS: Lisinopril 10 MG Tab PO SCH (09:11)
[2021-10-14] MEDS: Aspirin 81 MG Tab.EC PO SCH (09:11)
[2021-10-14] MEDS: Clopidogrel 75 MG Tab PO SCH (09:11)
[2021-10-14] MEDS: Enoxaparin 40 MG/0.4 ML Syringe SUBCUT SCH (09:12)
[2021-10-14] MEDS: Insulin Glarg,Human.Rec.Analog 100 Unit/ML SUBCUT SCH (09:13)
[2021-10-14] MEDS ORDERED: Cefdinir 250 MG/5 ML Susp 100 ML Bottle PO SCH (12:00)
[2021-10-14] MEDS: Sulfamethoxazole/Trimethoprim 800-160 MG Tab PO SCH ×2 (12:29→21:31)
[2021-10-14] MEDS ORDERED: Cephalexin 500 MG Cap PO SCH (13:00)
[2021-10-14] MEDS: Ezetimibe 10 MG Tab PO SCH (21:31)
[2021-10-15] MEDS: Pantoprazole 40 MG Tab.CR PO SCH (05:34)
[2021-10-15] MEDS: HYDROmorphone 0.5 MG/0.5 ML Syringe IVPUSH PRN ×3 (07:18→16:25)
[2021-10-15] MEDS: Insulin Lispro 100 Units/ML 3 ML Vial SUBCUT SCH ×3 (08:05→17:02)
[2021-10-15] MEDS: Insulin Glarg,Human.Rec.Analog 100 Unit/ML SUBCUT SCH (08:07)
[2021-10-15] MEDS: Acetaminophen/HYDROcodone 325-5 MG Tab PO PRN (08:33)
[2021-10-15] MEDS: Lisinopril 10 MG Tab PO SCH (08:34)
[2021-10-15] MEDS: Sulfamethoxazole/Trimethoprim 800-160 MG Tab PO SCH (08:35)
[2021-10-15] MEDS: Ascorbic Acid 500 MG Tab PO SCH (08:35)
[2021-10-15] MEDS: Clopidogrel 75 MG Tab PO SCH (08:36)
[2021-10-15] MEDS: Potassium Chloride 10 MEQ Tab.ER PO SCH (08:36)
[2021-10-15] MEDS: Aspirin 81 MG Tab.EC PO SCH (08:36)
[2021-10-15] MEDS: Carvedilol 3.125 MG Tab PO SCH (08:37)
[2021-10-15] MEDS: Furosemide 20 MG Tab PO SCH ×2 (08:38→14:27)
[2021-10-15] MEDS: Enoxaparin 40 MG/0.4 ML Syringe SUBCUT SCH (08:38)
[2021-10-15] MEDS ORDERED: Heparin Sodium/0.45% NaCl 25,000 UNITS/500 ML BAG IV SCH (09:45)
[2021-10-15 16:34] VITALS: BP 136/78; PULSE 69
== END 2021-10-15 16:45 | DRG 637 ==
LOC: DL.ED 04:19 → DL.MS 07:00
PROVIDERS: ADMIT Internal Medicine; ATTEND Internal Medicine
DX: N39.0 Urinary tract infection, site not specified (principal); E11.628 Type 2 diabetes mellitus with other skin complications; D72.829 Elevated white blood cell count, unspecified; M72.6 Necrotizing fasciitis; L03.116 Cellulitis of left lower limb; E11.52 Type 2 diabetes mellitus with diabetic peripheral angiopathy with gangrene; I96 Gangrene, not elsewhere classified; N30.01 Acute cystitis with hematuria; L03.115 Cellulitis of right lower limb; E11.649 Type 2 diabetes mellitus with hypoglycemia without coma; Z20.822 Contact with and (suspected) exposure to COVID-19; B96.20 Unspecified Escherichia coli [E. coli] as the cause of diseases classified elsewhere; M81.0 Age-related osteoporosis without current pathological fracture; I71.4 Abdominal aortic aneurysm, without rupture; I70.0 Atherosclerosis of aorta; Z79.02 Long term (current) use of antithrombotics/antiplatelets; K59.00 Constipation, unspecified; I11.0 Hypertensive heart disease with heart failure; J44.9 Chronic obstructive pulmonary disease, unspecified; F41.9 Anxiety disorder, unspecified; F17.200 Nicotine dependence, unspecified, uncomplicated; I50.9 Heart failure, unspecified; L89.90 Pressure ulcer of unspecified site, unspecified stage; R32 Unspecified urinary incontinence; G47.00 Insomnia, unspecified; Z86.14 Personal history of Methicillin resistant Staphylococcus aureus infection; Z88.8 Allergy status to other drugs, medicaments and biological substances; Z88.0 Allergy status to penicillin; Z79.82 Long term (current) use of aspirin; Z79.899 Other long term (current) drug therapy; I25.2 Old myocardial infarction; Z86.73 Personal history of transient ischemic attack (TIA), and cerebral infarction without residual deficits; Z90.49 Acquired absence of other specified parts of digestive tract; Z90.710 Acquired absence of both cervix and uterus; K21.9 Gastro-esophageal reflux disease without esophagitis; E11.65 Type 2 diabetes mellitus with hyperglycemia; Z86.19 Personal history of other infectious and parasitic diseases; Z95.1 Presence of aortocoronary bypass graft; Z79.4 Long term (current) use of insulin
CPT/HCPCS: 0240U; 36415; 51702; 70450; 71045; 73700; 74177; 80048; 80053; 80202; 80305; 80307; 81001; 82803; 82947; 83605; 83735; 83880; 84484; 85025; 85610; 86140; 87040; 87070; 87077; 87086; 87088; 87186; 87205; 93005; 93010; 93970; 97161; 97166; 99284; 96365; 96375; 96376; 99285-25; A9270-GY; J0696; J1170; J1644; J1650; J1815-GY; J2185; J3370; J3490; J7030; J7040; J7042; J7050; Q9967